=== PATIENT | female | born 1950 | race Caucasian/White ===

== ENCOUNTER 2016-12-04 09:00 | Outpatient (RCR) | payer MEDICARE ==
--- OUTSIDE RECORDS SUMMARY | 2016-10-20 13:06 | XMS REPORT | Continuity of Care Document ---
Author Author [facility] Organization [facility] Address Unknown Phone Unavailable Care Team Providers Care Net Development Manager Name Role Phone Emilie Ennis PCP Unavailable Source Comments Some departments are not documenting in the electronic medical record. If you do not see the information that you expected, contact Release of Information in the Health Information Management department at [phone] for further assistance in locating additional records.[facility] Active Allergies and Adverse Reactions No Known Allergies Current Medications Prescription Sig. Disp. Refills Start End Date Status Date ketotifen(+) (ZADITOR) Place 1 Drop into or Active 0.025 % ophthalmic around eye(s) twice solution daily. mupirocin (BACTROBAN) 2 % Apply to affected area Active topical ointment three times daily. clotrimazole-betamethason Apply to affected area Active e (LOTRISONE) 1-0.05 % twice daily. topical cream gentamicin 0.3 % Apply 1 Drop to both eyes Active ophthalmic solution every 4 hours. Tolnaftate 1 % soln Apply to affected area. Active Tobramycin-Lotepred Place into or around Active (ZYLET) 0.3-0.5 % drps eye(s). estradiol(+) 1 Patch twice weekly. 8 Patch 12 01/06/20 Active (VIVELLE-DOT) 0.05 mg/24 14 hr patch fluticasone (FLONASE) 50 2 Sprays daily. 1 Inhaler 11 01/05/20 Active mcg/actuation nasal spray 14 fexofenadine-pseudoephedr Take 1 Tab by mouth 30 Tab 3 10/19/20 Active ine (DIANNA-D 12 HOUR) daily. 14 60-120 mg tablet Active Problems Problem Noted Date Allergic rhinitis 12/20/2007 Sinusitis (chronic) 12/20/2007 Depression 12/20/2007 Immunizations Name Dates Previously Given Next Due Tdap Vaccine 10/04/2012 Social History Tobacco Use Types Packs/Day Years Used Date Current Some Day Smoker Cigarettes 0.3 Smokeless Tobacco: Never Used Tobacco Cessation: Ready to Quit: Yes; Counseling Given: Yes Comments: once she gets moved permanently to [place] Alcohol Use Drinks/Week oz/Week Comments Yes 3 Standard 1.5 wine drinks or equivalent Last Filed Vital Signs Vital Sign Reading Time Taken Blood Pressure 142/86 01/04/2014 7:51 AM HOME HEALTH RN Pulse 84 01/04/2014 7:51 AM HOME HEALTH RN Temperature 36.8 C (98.3 F) 01/04/2014 7:51 AM HOME HEALTH RN Respiratory Rate 16 12/05/2013 12:28 PM HOME HEALTH RN Height 1.607 m (5' 3.25") 01/04/2014 7:51 AM HOME HEALTH RN Weight 75.552 kg (166 lb 9 oz) 01/04/2014 7:51 AM HOME HEALTH RN Body Mass Index 29.26 01/04/2014 7:51 AM HOME HEALTH RN Oxygen Saturation - - Plan of Care Health Maintenance Due Date Last Done Comments Prevnar/Pneumovax (#1) 2013 Physical (Comprehensive) 01/04/2015 01/04/2014, 05/05/2011 Exam Breast Cancer Screening 01/05/2016 01/04/2014 (Declined) Influenza Vaccine 07/03/2016 01/04/2014 (Declined) Tetanus Vaccine 10/04/2022 10/04/2012, 10/04/2012 Colorectal Cancer 01/05/2024 01/04/2014 (Declined) Screening Pertussis Vaccine Completed 10/04/2012, 10/04/2012 Aco Mssp Completed 11/02/2013 Shingles Vaccine Addressed 01/04/2014 (Declined) Overridden with the intention of not completing the topic Osteoporosis Screening Completed 01/06/2014, 01/04/2014 Results from Last 3 Months Not on file
[~2016-12-04 09:00] MED LIST: CALC-823 PO; CETI10TA20 PO; CHOL20002 PO; CHOL500044 PO; ESTR0.5T PO; ESTR1PAT53 TD; FEXO-14 PO; FLUT9.9S NS; GINK120C PO; MULT-974 PO; OLOP2.5D OU; OMEP40CA36 PO
== END 2017-01-18 | disposition home or self-care (01) ==
LOC: PULM 09:00
PROVIDERS: ATTEND Nurse Practitioner Family
DX: J98.4 Other disorders of lung (principal); R09.02 Hypoxemia; R06.00 Dyspnea, unspecified
CPT/HCPCS: 94799; 99211

== ENCOUNTER 2017-05-22 12:46 | Outpatient (RCR) | payer OTHER ==
--- NOTE | 2017-05-22 12:46 | Diagnostic Imaging Report ---
PA and lateral views of the chest. INDICATION: History of histoplasmosis. FINDINGS: There is mild left basilar opacity which may relate to atelectasis or infiltrate. The heart size is not enlarged. There is interstitial thickening which appears to be chronic. No effusion or pneumothorax. The mediastinum and maksim appear unremarkable. IMPRESSION: Subsegmental opacity in the left lung base may relate to atelectasis or in the appropriate clinical setting, pneumonia could be considered. Dictated by: Dictated on workstation # [id number]
[2017-05-22 12:53] LABS: BASOPHILS % (AUTO) 0 % (0-10); EOSINOPHILS % (AUTO) 0 % (0-10); LYMPHOCYTES # (AUTO) 3.1 X 10^3 (1.0-4.0); LYMPHOCYTES % (AUTO) 35 % (12-44); MEAN CORPUSCULAR HEMOGLOBIN 32 PG (25-34); MEAN CORPUSCULAR HGB CONC 32 G/DL (32-36); MEAN CORPUSCULAR VOLUME 100 FL (80-99); MEAN PLATELET VOLUME 9.8 FL (7.4-10.4); MONOCYTES # (AUTO) 0.8 X 10^3 (0.0-1.0); MONOCYTES % (AUTO) 9 % (0-12); NEUTROPHILS # (AUTO) 4.9 X 10^3 (1.8-7.8); NEUTROPHILS % (AUTO) 56 % (42-75); PLATELET COUNT 331 10^3/uL (130-400); RED BLOOD COUNT 3.96 10^6/uL (4.35-5.85); RED CELL DISTRIBUTION WIDTH 13.5 % (10.0-14.5); WHITE BLOOD COUNT 8.8 10^3/uL (4.3-11.0)
[2017-05-22 13:47] LABS: BAND NEUTROPHILS 0 %; BASOPHILS % (MANUAL) 0 %; EOSINOPHILS % (MANUAL) 0 %; LYMPHOCYTES % (MANUAL) 34 %; NEUTROPHILS % (MANUAL) 61 %
== END 2017-08-01 | disposition home or self-care (01) ==
LOC: EDSTATUS 12:46 → RAD 12:46
PROVIDERS: ATTEND Nurse Practitioner Family
DX: J06.9 Acute upper respiratory infection, unspecified (principal); Z86.19 Personal history of other infectious and parasitic diseases
CPT/HCPCS: 36415; 71020; 85007; 85027; 87070; 87077; 87186; 87205

== ENCOUNTER → 2017-06-29 | Outpatient (CLI) | payer MEDICARE, OTHER ==
[2017-06-29 11:42] LABS: BASOPHILS % (AUTO) 1 % (0-10); EOSINOPHILS # (AUTO) 0.1 10^3/uL (0.0-0.3); EOSINOPHILS % (AUTO) 2 % (0-10); LYMPHOCYTES % (AUTO) 28 % (12-44); MEAN CORPUSCULAR HEMOGLOBIN 32 PG (25-34); MEAN CORPUSCULAR HGB CONC 32 G/DL (32-36); MEAN CORPUSCULAR VOLUME 99 FL (80-99); MEAN PLATELET VOLUME 10.1 FL (7.4-10.4); MONOCYTES # (AUTO) 0.6 X 10^3 (0.0-1.0); MONOCYTES % (AUTO) 9 % (0-12); NEUTROPHILS # (AUTO) 4.2 X 10^3 (1.8-7.8); NEUTROPHILS % (AUTO) 60 % (42-75); PLATELET COUNT 292 10^3/uL (130-400); RED BLOOD COUNT 4.05 10^6/uL (4.35-5.85); RED CELL DISTRIBUTION WIDTH 13.5 % (10.0-14.5)
[2017-06-29 12:00] LABS: ANION GAP 13 MMOL/L (5-14); BLOOD UREA NITROGEN 15 MG/DL (7-18); CARBON DIOXIDE 22 MMOL/L (21-32); CHLORIDE 105 MMOL/L (98-107); CREATININE SERUM 0.65 MG/DL (0.60-1.30); POTASSIUM 3.7 MMOL/L (3.6-5.0); SODIUM 140 MMOL/L (135-145)
[2017-06-29 12:01] LABS: ALANINE AMINOTRANSFERASE 11 U/L (0-55); ALBUMIN 3.8 GM/DL (3.2-4.5); ASPARTATE AMINO TRANSFERASE 16 U/L (5-34); BILIRUBIN,TOTAL 0.6 MG/DL (0.1-1.0); BUN/CREATININE RATIO 23; CALCIUM 9.1 MG/DL (8.5-10.1); GFR ESTIMATED > 60; GLUCOSE 110 MG/DL (70-105); TOTAL PROTEIN 7.2 GM/DL (6.4-8.2)
[2017-06-29 12:11] LABS: NEUTROPHILS % (MANUAL) 52 %
[2017-06-29 12:12] LABS: EOSINOPHILS % (MANUAL) 1 %; LYMPHOCYTES % (MANUAL) 33 %; REACTIVE LYMPHOCYTES 2 %
--- NOTE | 2017-06-29 13:23 | Diagnostic Imaging Report ---
PROCEDURE: CT chest without contrast. TECHNIQUE: Multiple contiguous axial images were obtained through the chest without the use of intravenous contrast. INDICATION: Pneumonia. Comparison is made with prior examination from 10/16/16. FINDINGS: There is air trapping compatible with COPD. There is subpleural interstitial scarring in the periphery of both lungs and particularly the lung bases. This is essentially unchanged. There is a calcified granuloma in the right lung base. There are no other discrete pulmonary nodules, masses or infiltrates. There is no pleural or pericardial fluid. There are coronary artery calcifications. The heart size is normal. There is no pathologically enlarged adenopathy in the chest. There are degenerative changes in the spine. There is cholelithiasis. The remainder of the intra-abdominal structures are unremarkable. IMPRESSION: 1. COPD with unchanged subpleural interstitial infiltrates/scarring bilaterally, particularly in the lung bases. This has not changed significantly since the prior examination. 2. Cholelithiasis. 3. Coronary artery calcification. Dictated by: Dictated on workstation # [id number]
== END ==
LOC: RAD 11:24
PROVIDERS: ATTEND Nurse Practitioner Family
DX: J44.9 Chronic obstructive pulmonary disease, unspecified (principal); K80.20 Calculus of gallbladder without cholecystitis without obstruction; I25.10 Atherosclerotic heart disease of native coronary artery without angina pectoris
CPT/HCPCS: 36415; 71250; 80053; 85007; 85027

== ENCOUNTER → 2018-01-18 | Outpatient (CLI) | payer MEDICARE, OTHER ==
--- NOTE | 2018-01-18 13:05 | Diagnostic Imaging Report ---
INDICATION: Dyspnea and tobacco dependence. TIME OF EXAM: 12:56 p.m. COMPARISON: Correlation is made with prior study from 05/22/2017. FINDINGS: The heart size is normal. Chronic parenchymal density in the left base partially obscuring the left heart border is noted and similar to prior exam. The right lung is clear. No effusion is seen. There is no pneumothorax. IMPRESSION: Chronic left basilar density, perhaps scarring or atelectasis. No new abnormality is detected. Dictated by: Dictated on workstation # [id number]
== END ==
LOC: RAD 12:08
PROVIDERS: ATTEND Nurse Practitioner Family
DX: J30.9 Allergic rhinitis, unspecified (principal); R91.8 Other nonspecific abnormal finding of lung field; R09.02 Hypoxemia; F17.201 Nicotine dependence, unspecified, in remission; Z86.19 Personal history of other infectious and parasitic diseases
CPT/HCPCS: 71046

== ENCOUNTER 2018-07-28 11:19 | Outpatient (RCR) | payer MEDICARE | END 2018-08-02 13:26 | disposition home or self-care (01) | PROVIDERS: ATTEND Orthopaedic Surgery Hand Surgery | DX: Z47.1 Aftercare following joint replacement surgery (principal); Z96.692 Finger-joint replacement of left hand ==

== ENCOUNTER 2018-08-10 11:19 | Outpatient (RCR) | payer MEDICARE | END 2018-09-16 13:54 | disposition home or self-care (01) | PROVIDERS: ATTEND Orthopaedic Surgery Hand Surgery | DX: Z47.1 Aftercare following joint replacement surgery (principal); Z96.692 Finger-joint replacement of left hand ==

== ENCOUNTER → 2019-03-01 | Outpatient (CLI) | payer MEDICARE ==
--- NOTE | 2019-03-01 16:35 | Diagnostic Imaging Report ---
INDICATION: Screening The current study was also evaluated with a Computer Aided Detection (CAD) system. 3-D Tomographic imaging was also performed. Comparison made with prior examination of 05/26/2016 and 05/09/2015. FINDINGS: There are fibroglandular densities bilaterally. There are a few benign type calcifications. There is a small well-circumscribed mass in the lateral aspect of the left breast in the CC projection. There is no other dominant mass, spiculated lesion or suspicious calcification identified. Skin, nipples and axilla are unremarkable. IMPRESSION: Category 0, further imaging needed. Well-circumscribed small mass lateral aspect left breast. Further evaluation with spot compression views and ultrasound is recommended. ACR BI-RADS Category 0: Incomplete. (Needs additional imaging evaluation). Result letter will be mailed to the patient. Note: At least 10% of breast cancer is not imaged by mammography. Dictated by: Dictated on workstation # [id number]
== END ==
LOC: RAD 12:49
PROVIDERS: ATTEND Nurse Practitioner Family
DX: Z12.31 Encounter for screening mammogram for malignant neoplasm of breast (principal)
CPT/HCPCS: 77067

== ENCOUNTER → 2019-03-14 | Outpatient (CLI) | payer MEDICARE ==
--- NOTE | 2019-03-14 14:44 | Diagnostic Imaging Report ---
INDICATION: Left breast density. Patient presents for additional views. CORRELATION is made with recent screening study from 03/01/2019. Unilateral left 2-D and 3-D diagnostic mammography was performed including spot compression CC, spot compression ML and conventional 9 degree lateral view. Additional views show persistence of circumscribed tiny nodule in the lower and outer aspect of the left breast at mid-to posterior depth. This is approximately 7 to 9 cm deep to the nipple. The remainder of the left breast is unremarkable. IMPRESSION: BI-RADS 0. Tiny circumscribed nodule lower outer left breast mid depth. This has benign features but further evaluation with ultrasound is recommended. This will be performed today. ACR BI-RADS Category 0: Incomplete. (Needs additional imaging evaluation). Result letter will be mailed to the patient. Note: At least 10% of breast cancer is not imaged by mammography. Dictated by: Dictated on workstation # [id number]
--- NOTE | 2019-03-14 15:05 | Diagnostic Imaging Report ---
INDICATION: Left breast density noted on recent screening and diagnostic mammogram. Study is performed for further aeration. CORRELATION is made with diagnosed mammogram earlier the same day as well as screening mammogram from 03/01/2019. FINDINGS: Sonographic interrogation of the outer left breast was performed. There is a bilobed simple appearing cyst at the 3 o'clock location of the left breast 7 cm from the nipple. This measures 5 mm x 2 mm x 5 mm. This does correlate in size and location to the circumscribed density noted mammographically. No internal vascularity is present. No solid lesion is identified. IMPRESSION: BI-RADS category 2. Simple bilobed cyst at the 3 o'clock location of the left breast, 7 cm from the nipple. This does correspond with the mammographic density and appears benign. The patient may return to routine annual screening mammography. ACR BI-RADS Category 2: Benign findings. Result letter will be mailed to the patient. Note: At least 10% of breast cancer is not imaged by mammography. Dictated by: Dictated on workstation # [id number]
== END ==
LOC: RAD 13:31
PROVIDERS: ATTEND Nurse Practitioner Family
DX: N60.02 Solitary cyst of left breast (principal); N63.23 Unspecified lump in the left breast, lower outer quadrant
CPT/HCPCS: 76642

== ENCOUNTER → 2019-08-31 | Outpatient (CLI) | payer MEDICARE ==
[2019-08-31 12:12] LABS: BASOPHILS % (AUTO) 1 % (0-10); EOSINOPHILS # (AUTO) 0.5 10^3/uL (0.0-0.3); EOSINOPHILS % (AUTO) 6 % (0-10); HEMATOCRIT 40 % (35-52); HEMOGLOBIN 12.7 G/DL (11.5-16.0); LYMPHOCYTES # (AUTO) 2.2 X 10^3 (1.0-4.0); LYMPHOCYTES % (AUTO) 27 % (12-44); MEAN CORPUSCULAR HEMOGLOBIN 32 PG (25-34); MEAN CORPUSCULAR HGB CONC 32 G/DL (32-36); MEAN CORPUSCULAR VOLUME 99 FL (80-99); MEAN PLATELET VOLUME 9.5 FL (7.4-10.4); MONOCYTES # (AUTO) 0.6 X 10^3 (0.0-1.0); MONOCYTES % (AUTO) 8 % (0-12); NEUTROPHILS # (AUTO) 4.7 X 10^3 (1.8-7.8); NEUTROPHILS % (AUTO) 59 % (42-75); PLATELET COUNT 357 10^3/uL (130-400); RED CELL DISTRIBUTION WIDTH 14.1 % (10.0-14.5)
--- NOTE | 2019-08-31 12:32 | Diagnostic Imaging Report ---
INDICATION: Pneumonia. PA and lateral views of the chest are obtained with comparison made to study of 01/18/2018. Heart size and pulmonary vascularity are within normal limits. There is mixed interstitial and alveolar density throughout the lungs, most pronounced in the left lower lobe. No pneumothorax or significant pleural fluid is identified. IMPRESSION: Development of bilateral interstitial and alveolar densities which may be due to pneumonitis or atypical pneumonia. Radiographic follow-up would be useful to document resolution. Dictated by: Dictated on workstation # [id number]
== END ==
LOC: RAD 12:01
PROVIDERS: ATTEND Nurse Practitioner Family
DX: J18.8 Other pneumonia, unspecified organism (principal); J30.9 Allergic rhinitis, unspecified; F17.201 Nicotine dependence, unspecified, in remission; Z86.19 Personal history of other infectious and parasitic diseases
CPT/HCPCS: 36415; 71046; 85025

== ENCOUNTER → 2019-09-21 | Outpatient (CLI) | payer MEDICARE ==
[~2019-09-21] MED LIST changes: +AZIT250T12 PO; +CALC-676 PO; +CEFD300C3 PO; +CYAN-41 PO; +CYCL1DRO OU; +DULO60CA59 PO; +ESTR1PAT90 TD; +HOLD METFORMIN - RECEIVED CONTRAST 20 ML VIAL IV SCH; +HYDR25TA4 PO; +IOHEXOL 350 MG/ML 100 ML (OMNIPAQUE 350) VIAL IV ONE; +LISI10TA2 PO; +MONT10TA24 PO; +NS 100 ML (IVPB) BAG IV ONE; +OLOP2.5D6 OU; +RT-ALBUINH INH; +TRAM50TA2 PO; +UMEC1BLS INH; +VITA1TAB17 PO
[2019-09-21 11:46] LABS: BASOPHILS % (AUTO) 1 % (0-10); EOSINOPHILS # (AUTO) 0.3 10^3/uL (0.0-0.3); EOSINOPHILS % (AUTO) 4 % (0-10); HEMATOCRIT 40 % (35-52); HEMOGLOBIN 12.7 G/DL (11.5-16.0); LYMPHOCYTES # (AUTO) 2.4 X 10^3 (1.0-4.0); LYMPHOCYTES % (AUTO) 29 % (12-44); MEAN CORPUSCULAR HEMOGLOBIN 32 PG (25-34); MEAN CORPUSCULAR HGB CONC 32 G/DL (32-36); MEAN CORPUSCULAR VOLUME 99 FL (80-99); MEAN PLATELET VOLUME 9.1 FL (7.4-10.4); MONOCYTES # (AUTO) 0.8 X 10^3 (0.0-1.0); MONOCYTES % (AUTO) 9 % (0-12); NEUTROPHILS # (AUTO) 4.9 X 10^3 (1.8-7.8); NEUTROPHILS % (AUTO) 58 % (42-75); PLATELET COUNT 326 10^3/uL (130-400); RED CELL DISTRIBUTION WIDTH 14.1 % (10.0-14.5); WHITE BLOOD COUNT 8.3 10^3/uL (4.3-11.0)
[2019-09-21 12:02] LABS: BUN/CREATININE RATIO 21; CREATININE SERUM 0.76 MG/DL (0.60-1.30); GFR ESTIMATED > 60
--- NOTE | 2019-09-21 14:01 | Diagnostic Imaging Report ---
PROCEDURE: CT angiography of the chest with contrast. TECHNIQUE: Multiple contiguous axial images were obtained through the chest after uneventful bolus administration of intravenous contrast. 3D reconstructed CTA MIP acquisitions were also performed. Auto Exposure Controls were utilized during the CT exam to meet ALARA standards for radiation dose reduction. INDICATION: Pneumonia, prior history of histoplasmosis. COMPARISON: Correlation is made with the prior chest CT from 06/29/2017. FINDINGS: The thoracic aorta is normal in caliber. No dissection is identified. Evaluation of the pulmonary arterial system is without thromboembolism. No filling defects are seen within central or lobar segmental branches. There is no pericardial or pleural fluid identified. No axillary lymphadenopathy is seen. There are some mildly prominent lymph nodes in the AP window and subcarinal region. Calcifications in the subcarinal region are noted, likely owing to prior granulomatous exposure. Extensive interstitial changes are identified in both lungs. There appears to be interlobular septal thickening peripherally in bilateral upper and lower lobes. There are some cystic changes in the left lower lobe. No discrete mass is identified. There appears to be some mild left lower lobe bronchiectasis. The upper abdomen demonstrates small stones in the gallbladder. IMPRESSION: 1. There are extensive interstitial changes in both lungs, perhaps on the basis of fibrosis although acute interstitial infiltrates cannot be entirely excluded. There appear to be some prominent lymph nodes in the mediastinum which may be of owing to prior granulomatous exposure. The patient does have a history of histoplasmosis. 2. Cholelithiasis. 3. No evidence of pulmonary embolism or thoracic aortic dissection. Dictated by: Dictated on workstation # [id number]
== END ==
LOC: RAD 11:37
PROVIDERS: ATTEND Nurse Practitioner Family
DX: J84.9 Interstitial pulmonary disease, unspecified (principal); J18.8 Other pneumonia, unspecified organism; G47.33 Obstructive sleep apnea (adult) (pediatric); F17.201 Nicotine dependence, unspecified, in remission; Z86.19 Personal history of other infectious and parasitic diseases
CPT/HCPCS: 36415; 71275; 82565; 83880; 84520; 85025

== ENCOUNTER 2019-09-22 10:07 | Inpatient (IN) | payer MEDICARE ==
[~2019-09-22] VITALS: Ht 162.5 cm; Wt 73.6 kg
[2019-09-22] VITALS (14 sets, daily range): BP systolic 98–154; BP diastolic 55–77
[~2019-09-22 10:07] MED LIST changes: -AZIT250T12 PO; -CALC-676 PO; -CEFD300C3 PO; -CYAN-41 PO; -CYCL1DRO OU; -DULO60CA59 PO; -ESTR1PAT90 TD; -HOLD METFORMIN - RECEIVED CONTRAST 20 ML VIAL IV SCH; -HYDR25TA4 PO; -IOHEXOL 350 MG/ML 100 ML (OMNIPAQUE 350) VIAL IV ONE; -LISI10TA2 PO; -MONT10TA24 PO; -NS 100 ML (IVPB) BAG IV ONE; -OLOP2.5D6 OU; +OMEP40CA27 PO; -OMEP40CA36 PO; -RT-ALBUINH INH; -TRAM50TA2 PO; -UMEC1BLS INH; -VITA1TAB17 PO
[2019-09-22] MEDS ORDERED: AZITHROMYCIN 500 MG/NS 250 ML IVPB IV ONE ×2 (11:00)
[2019-09-22] MEDS ORDERED: PIPERACILLIN/TAZOBACTAM 4.5 GM in NS (IVPB) 100 ML IV ONE (11:00)
--- NOTE | 2019-09-22 11:05 | NUR ---
Pastoral care visit.
[2019-09-22] MEDS ORDERED: ACETAMINOPHEN 325 MG TABLET PO PRN (11:15)
[2019-09-22] MEDS ORDERED: morphine INJ 4 MG/ML 1 ML (VIAL/SYRINGE) IV PRN (11:15)
[2019-09-22] MEDS ORDERED: ONDANSETRON 4 MG/2 ML (SDV) Z0FRAN IV PRN (11:15)
[2019-09-22 11:26] LABS: ALANINE AMINOTRANSFERASE 14 U/L (0-55); ALKALINE PHOSPHATASE 61 U/L (40-136); BILIRUBIN,TOTAL 0.5 MG/DL (0.1-1.0); BUN/CREATININE RATIO 15; CALCIUM 9.4 MG/DL (8.5-10.1); CARBON DIOXIDE 25 MMOL/L (21-32); CHLORIDE 105 MMOL/L (98-107); CREATININE SERUM 0.72 MG/DL (0.60-1.30); GFR ESTIMATED > 60; GLUCOSE 105 MG/DL (70-105); POTASSIUM 3.9 MMOL/L (3.6-5.0); SODIUM 139 MMOL/L (135-145); TOTAL PROTEIN 7.3 GM/DL (6.4-8.2)
[2019-09-22 11:27] LABS: BILIRUBIN,URINE NEGATIVE (NEGATIVE); CLARITY,URINE CLEAR; COLOR,URINE YELLOW; GLUCOSE, URINE (UA) NEGATIVE (NEGATIVE); KETONES,URINE NEGATIVE (NEGATIVE); LEUKOCYTE ESTERASE ,URINE NEGATIVE (NEGATIVE); NITRITE,URINE NEGATIVE (NEGATIVE); PROTEIN,URINE NEGATIVE (NEGATIVE)
[2019-09-22 11:33] LABS: BACTERIA,URINE TRACE /HPF; RBC,URINE 0-2 /HPF; WBC,URINE 0-2 /HPF
[2019-09-22] MEDS ORDERED: FLU QUADRIvalent (5+ YOA) 2019-2020 (AFLURIA) 0.5 ML IM ONE (12:00)
[2019-09-22] MEDS: LACTATED RINGERS 1,000 ML IV SCH ×3 (12:05→23:18)
[2019-09-22] MEDS ORDERED: HYDR25TA4 PO (12:56)
[2019-09-22] MEDS ORDERED: CYCL1DRO OU (12:56)
[2019-09-22] MEDS ORDERED: CEFD300C3 PO (12:56)
[2019-09-22] MEDS ORDERED: RT-ALBUINH INH (12:56)
[2019-09-22] MEDS ORDERED: OLOP2.5D6 OU (12:56)
[2019-09-22] MEDS ORDERED: TRM50T PO (12:56)
[2019-09-22] MEDS ORDERED: MONT10TA24 PO (12:56)
[2019-09-22] MEDS ORDERED: DULO60CA59 PO (12:56)
[2019-09-22] MEDS ORDERED: VITA1TAB17 PO (12:56)
[2019-09-22] MEDS ORDERED: CYAN-41 PO (12:56)
[2019-09-22] MEDS ORDERED: LISI10TA2 PO (12:56)
[2019-09-22] MEDS ORDERED: CALC-676 PO (12:56)
[2019-09-22] MEDS ORDERED: UMEC1BLS INH (12:56)
[2019-09-22] MEDS ORDERED: AZIT250T12 PO (12:56)
[2019-09-22] MEDS ORDERED: ESTR1PAT90 TD (12:56)
--- NOTE | 2019-09-22 13:01 | NUR ---
WENT OVER THE EXT MED HX WITH THE PATIENT, SHE HAD HER PRESCRIPTION BOTTLES WITH HER WELL. SHE VERIFIED HOW SHE TAKES EACH MEDICATION. SHE TAKES THE FOLLOWING OTC: CALCIUM +D DAILY B12 DAILY ZYRTEC DAILY FLONASE PRN GINGKO BILOBA DAILY MTV DAILY B COMPLEX DAILY
[2019-09-22] MEDS: PIPERACILLIN/TAZO 4.5 GM/NS 100 ML IV SCH ×2 (17:58)
--- NOTE | 2019-09-22 19:25 | History & Physical ---
History of Present Illness History of Present Illness Reason for visit/HPI PT IS A 68 Y/O FEMALE WHO IS KNOWN TO ME FROM CLINIC. SHE HAS APPARENTLY NOT BEEN FEELING WELL FOR ABOUT A MONTH - WAS SEEN BY DR. CELESTE'S NURSE PRACTITIONER AND GIVEN ANTIBIOTICS AT THE END OF AUGUST, SHE DID NOT FEEL WELL AFTER THE ANTIBIOTICS, WANTED THEM EXTENDED, BUT HAD TROUBLE GETTING IN TOUCH WITH HIS STAFF AND SHE NEVER CALLED MY OFFICE FOR AN APPT. SHE "SUFFERED THROUGH IT" AND THEN FINALLY GOT IN TO BE SEEN ON THURSDAY, THEY WANTED TO ADMIT HER AT THAT TIME, BUT SHE REFUSED BECAUSE SHE HAD A CONCERT TO PLAY AT ON THURSDAY. SHE THEN CALLED THEN ON THURSDAY AND SAID THAT SHE WAS FEELING WORSE AND SHE WAS THEREFORE ADMITTED TO THE HOSPITAL FROM HIS CLINIC TODAY. Date of Admission Sep 22, 2019 at 10:29 Date Seen by a Provider: Sep 22, 2019 Time Seen by a Provider: 19:20 I consulted on this patient on 09/22/19 19:24 Attending Physician Marbin Wang MD Admitting Physician Marbin Wang MD Consult Allergies and Home Medications Allergies Coded Allergies: No Known Allergies (Verified Allergy, Unknown, 06/19/15) Home Medications Albuterol Sulfate 1 Puff Puff, 2 PUFF INH Q4H PRN for SHORTNESS OF BREATH, (Reported) Azithromycin 250 Mg Tablet, 250 MG PO UD, (Reported) FILLED 09-21-19 TAKE 2 TABLETS ON DAY ONE THEN TAKE 1 TABLET DAILY FOR FOUR MORE DAYS Calcium Carbonate/Vitamin D3 1 Each Tablet, 1 TAB PO DAILY, (Reported) Cefdinir 300 Mg Capsule, 300 MG PO BID, (Reported) 7 DAY SUPPLY FILLED 09-21-19 Cetirizine HCl 10 Mg Tablet, 10 MG PO DAILY, (Reported) Cyanocobalamin (Vitamin B-12) 1,000 Mcg Tablet, 1,000 MCG PO DAILY, (Reported) Cyclosporine 1 Each Droperette, 1 DROP OU BID, (Reported) Duloxetine HCl 60 Mg Capsule.dr, 60 MG PO HS, (Reported) Estradiol 1 Each Patch.tdsw, 0.5 MG TD SuTh, (Reported) Fluticasone Propionate 9.9 Ml [place].susp, 1 SPRAY NS DAILY PRN for ALLERGIES, (Reported) Ginkgo Biloba Extract 120 Mg Capsule, 120 MG PO DAILY, (Reported) Hydrochlorothiazide 25 Mg Tablet, 25 MG PO DAILY, (Reported) Lisinopril 10 Mg Tablet, 10 MG PO DAILY, (Reported) Montelukast Sodium 10 Mg Tablet, 10 MG PO HS, (Reported) Multivitamin 1 Each Tablet, 1 TAB PO DAILY, (Reported) Olopatadine HCl 2.5 Ml Drops, 1 DROP OU DAILY, (Reported) Omeprazole 40 Mg Capsule.dr, 40 MG PO DAILY, (Reported) Tramadol HCl 50 Mg Tablet, 50-100 MG PO Q4H PRN for PAIN-MODERATE (5-7), (Reported) Umeclidinium Brm/Vilanterol Tr 1 Each Blst.w.dev, 1 PUFF INH DAILY, (Reported) Vitamin B Complex 1 Each Tablet, 1 TAB PO DAILY, (Reported) Patient Home Medication List Home Medication List Reviewed: Yes Past Irpothr-Fumelc-Wuomvx Hx Past Med/Social Hx: Reviewed Nursing Past Med/Soc Hx, Reviewed and Corrections made Patient Social History Marrital Status: Living Status: LIVES AT HOME WITH SPOUSE Employed/Student: retired Alcohol Use: Regular Use Alcohol Beverage of Choice: Wine Recreational Drug Use: No Smoking Status: Former Smoker Former Smoker, Quit: Nov 25, 2014 2nd Hand Smoke Exposure: No Physical Abuse Screen: No Sexual Abuse: No Recent Foreign Travel: No Contact w/other who traveled: No Recent Hopitalizations: No Recent Infectious Disease Expo: No Immunizations Up To Date Date of Pneumonia Vaccine: Oct 21, 2017 Seasonal Allergies Seasonal Allergies: Yes Past Medical History Surgeries: Appendectomy, Hysterectomy, Lumpectomy, Tonsillectomy, Tubal Ligation Hysterectomy, Tubal Ligation Musculoskeletal: Arthritis, Fibromyalgia Loss of Vision: Denies Hearing Impairment: Denies Did You Recieve Any Treatments: No Psychosocial: Depression History of Blood Disorders: No Family History Reviewed Nursing Family Hx Alzheimer's disease 19 MOTHER Cardiovascular disease 19 FATHER Dementia G8 SISTER Parkinson's disease 19 MOTHER Review of Systems Constitutional: No chills, No fever; malaise, weakness EENTM: No hoarseness, No throat pain Respiratory: cough, dyspnea on exertion, short of breath Cardiovascular: No chest pain, No palpitations Gastrointestinal: No abdominal pain, No melena, No nausea, No vomiting Genitourinary: no symptoms reported Musculoskeletal: No back pain; muscle weakness Skin: no symptoms reported Psychiatric/Neurological: Denies Anxiety, Denies Depressed, Denies Weakness All Other Systems Reviewed Negative Unless Noted: Yes Physical Exam Vital Signs Vital Signs - First Documented 09/22/19 09/22/19 10:15 10:50 Temp 35.9 Pulse 71 Resp 25 B/P (MAP) 154/69 (97) Pulse Ox 96 O2 Delivery Nasal Cannula O2 Flow Rate 3.00 Capillary Refill : Height, Weight, BMI Height: 5'4.00" Weight: 170lbs. 0.0oz. 77.364418bu; 28.17 BMI Method: General Appearance: No Apparent Distress, WD/WN Eyes: Bilateral Eye Normal Inspection, Bilateral Eye PERRL, Bilateral Eye EOMI HEENT: PERRL/EOMI, Pharynx Normal Neck: Full Range of Motion Respiratory: Chest Non Tender, Accessory Muscle Use, Decreased Breath Sounds Cardiovascular: Regular Rate, Rhythm, No Edema, Normal Peripheral Pulses Gastrointestinal: Normal Bowel Sounds, Non Tender, Soft Rectal: Deferred Back: Normal Inspection, No Vertebral Tenderness Extremity: Normal Capillary Refill, Non Tender, No Calf Tenderness, No Pedal Edema Neurologic/Psychiatric: Alert, Oriented x3, No Motor/Sensory Deficits, Normal 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 CELESTE - ANTICIPATE THE PATIENT BEING IN THE HOSPITAL FOR AT LEAST 72 HOURS. - BRONCHOSCOPY PLANNED FOR TOMORROW HYPERTENSION - HOLD LISINOPRIL DUE TO HER COUGH - MONITOR BLOOD PRESSURES AND I WOULD RECOMMEND STARTING AN ARB INSTEAD OF AIDA-I ESOPHAGEAL REFLUX - START PPI Admission Diagnosis PNEUMONIA COPD EXACERBATION - ACUTE HYPERTENSION ESOPHAGEAL REFLUX Admission Status: Inpatient Order (span 2 midnights) Reason for Inpatient Admission: PT IS ADMITTED TO THE HOSPITAL FOR PNEUMONIA AND COPD EXACERBATION Clinical Quality Measures DVT/VTE Risk/Contraindication: Risk Factor Score Per Nursin RFS Level Per Nursing on Admit: 3=High MARBIN WANG MD Sep 22, 2019 19:25 POS
[2019-09-22] MEDS ORDERED: PROMETHAZINE/ CODEINE SYRUP 5 ML UDC PO PRN (21:15)
[2019-09-22] MEDS ORDERED: CHLORASEPTIC LOZENGE MM PRN (21:15)
[2019-09-22] MEDS: ENOXAPARIN 40 MG/0.4 ML (LOVENOX) SYR SC SCH (22:22)
[2019-09-22] MEDS ORDERED: methylPREDNISolone 40 MG/ML (Solu-MEDROL) VIAL ONE (23:08)
[2019-09-22] MEDS ORDERED: DULoxetine 30 MG (CYMBALTA) CAP ONE (23:08)
[2019-09-22] MEDS: DULoxetine 30 MG (CYMBALTA) CAP PO SCH (23:14)
[2019-09-22] MEDS: methylPREDNISolone 40 MG/ML (Solu-MEDROL) VIAL IV SCH (23:14)
[2019-09-23] VITALS (15 sets, daily range): BP systolic 99–140; BP diastolic 44–83
[2019-09-23] MEDS ORDERED: methylPREDNISolone 125 MG (Solu-MEDROL) VIAL IV SCH
[2019-09-23] MEDS ORDERED: methylPREDNISolone 40 MG/ML (Solu-MEDROL) VIAL IV SCH
[2019-09-23] MEDS: PIPERACILLIN/TAZO 4.5 GM/NS 100 ML IV SCH ×6 (01:32→16:39)
[2019-09-23] MEDS: MAGNESIUM 1 GM/100 ML IVPB 100 ML IV SCH (01:58)
[2019-09-23] MEDS: POTASSIUM CL 10MEQ/50ML IVPB 50 ML IV SCH (01:58)
[2019-09-23] MEDS: KCL 20 MEQ TAB (K-DUR) PO SCH (01:59)
[2019-09-23] MEDS ORDERED: RT-ALBUTEROL SULF 2.5 MG/3 ML PRE-MIX VIAL INH SCH (03:00)
[2019-09-23 03:53] LABS: BASOPHILS % (AUTO) 0 % (0-10); EOSINOPHILS % (AUTO) 0 % (0-10); HEMATOCRIT 37 % (35-52); HEMOGLOBIN 12.2 G/DL (11.5-16.0); LYMPHOCYTES # (AUTO) 0.9 X 10^3 (1.0-4.0); LYMPHOCYTES % (AUTO) 10 % (12-44); MEAN CORPUSCULAR HEMOGLOBIN 32 PG (25-34); MEAN CORPUSCULAR HGB CONC 33 G/DL (32-36); MEAN CORPUSCULAR VOLUME 99 FL (80-99); MEAN PLATELET VOLUME 9.8 FL (7.4-10.4); MONOCYTES # (AUTO) 0.1 X 10^3 (0.0-1.0); MONOCYTES % (AUTO) 1 % (0-12); NEUTROPHILS # (AUTO) 7.8 X 10^3 (1.8-7.8); NEUTROPHILS % (AUTO) 89 % (42-75); PLATELET COUNT 307 10^3/uL (130-400); RED CELL DISTRIBUTION WIDTH 14.1 % (10.0-14.5); WHITE BLOOD COUNT 8.9 10^3/uL (4.3-11.0)
[2019-09-23 04:37] LABS: BUN/CREATININE RATIO 15; CARBON DIOXIDE 23 MMOL/L (21-32); CHLORIDE 108 MMOL/L (98-107); CREATININE SERUM 0.74 MG/DL (0.60-1.30); GFR ESTIMATED > 60; GLUCOSE 146 MG/DL (70-105); MAGNESIUM 1.9 MG/DL (1.6-2.4); PHOSPHORUS 3.8 MG/DL (2.3-4.7); POTASSIUM 4.1 MMOL/L (3.6-5.0); SODIUM 141 MMOL/L (135-145)
--- NOTE | 2019-09-23 05:16 | Pulmonary Consultation ---
History of Present Illness History of Present Illness Date Seen by Provider: Sep 23, 2019 Time Seen by Provider: 07:00 Date of Admission History of Present Illness 68yo with hx of oxygen dependent COPD who was admitted from my office secondary to failing out pt treatment. Pt was on Omnicef in August and since that time she has progressively gotten worse. She has productive cough of yellow sputum and fevers. I am consulted for pulmonary management. Allergies and Home Medications Allergies Coded Allergies: lisinopril (Verified Adverse Reaction, Mild, cough, 09/25/19) Home Medications Albuterol Sulfate 1 Puff Puff, 2 PUFF INH Q4H PRN for SHORTNESS OF BREATH, (Reported) Amoxicillin/Potassium Clav 1 Each Tablet, 1 EACH PO BID Prescribed by: MARBIN JIMÉNEZ on 09/27/19954 Calcium Carbonate/Vitamin D3 1 Each Tablet, 1 TAB PO DAILY, (Reported) Cetirizine HCl 10 Mg Tablet, 10 MG PO DAILY, (Reported) Cyanocobalamin (Vitamin B-12) 1,000 Mcg Tablet, 1,000 MCG PO DAILY, (Reported) Cyclosporine 1 Each Droperette, 1 DROP OU BID, (Reported) Duloxetine HCl 60 Mg Capsule.dr, 60 MG PO HS, (Reported) Estradiol 1 Each Patch.tdsw, 0.5 MG TD SuTh, (Reported) Fluconazole 150 Mg Tablet, 150 MG PO DAILY Prescribed by: MARBIN JIMÉNEZ on 09/27/19954 Fluticasone Propionate 9.9 Ml [place].susp, 1 SPRAY NS DAILY PRN for ALLERGIES, (Reported) Ginkgo Biloba Extract 120 Mg Capsule, 120 MG PO DAILY, (Reported) Hydrochlorothiazide 25 Mg Tablet, 25 MG PO DAILY, (Reported) Losartan Potassium 25 Mg Tablet, 25 MG PO DAILY Prescribed by: MARBIN JIMÉNEZ on 09/27/19954 Montelukast Sodium 10 Mg Tablet, 10 MG PO HS, (Reported) Multivitamin 1 Each Tablet, 1 TAB PO DAILY, (Reported) Olopatadine HCl 2.5 Ml Drops, 1 DROP OU DAILY, (Reported) Omeprazole 40 Mg Capsule.dr, 40 MG PO DAILY, (Reported) Prednisone 20 Mg Tab, 20 MG PO UD 2tab/dayx 4days, 1tab/day x4days, 1/2tab/day x 4days then stop Prescribed by: MARBIN JIMÉNEZ on 09/27/19 0955 Tramadol HCl 50 Mg Tablet, 50-100 MG PO Q4H PRN for PAIN-MODERATE (5-7), (Reported) Umeclidinium Brm/Vilanterol Tr 1 Each Blst.w.dev, 1 PUFF INH DAILY, (Reported) Vitamin B Complex 1 Each Tablet, 1 TAB PO DAILY, (Reported) Past Whmifwp-Otylxt-Tuhuvk Hx Patient Social History Alcohol Use: Regular Use Alcohol Beverage of Choice: Wine Recreational Drug Use: No Smoking Status: Former Smoker Former Smoker, Quit: Nov 25, 2014 Recent Foreign Travel: No Recent Hopitalizations: No Immunizations Up To Date Date of Pneumonia Vaccine: Oct 21, 2017 Seasonal Allergies Seasonal Allergies: Yes Past Medical History Surgeries: Yes (c/s x2) Appendectomy, Hysterectomy, Lumpectomy, Tonsillectomy, Tubal Ligation Respiratory: Yes (wears oxygen at night and prn, INTERSITIAL LUNG DISEASE, HISTOPLASMOSIS) Cardiac: No Neurological: No [employer] F[employer]ER [employer] MACHINE History: Hysterectomy, Tubal Ligation Genitourinary: No Gastrointestinal: No Musculoskeletal: Yes Arthritis, Fibromyalgia Endocrine: No HEENT: No Cancer: No Psychosocial: Yes Depression Integumentary: No Blood Disorders: No Family Medical History Alzheimer's disease 19 MOTHER Cardiovascular disease 19 FATHER Dementia G8 SISTER Parkinson's disease 19 MOTHER Review of Systems Time Seen by Provider: 08:44 Constitutional: Fever, Chills, Sweats, Weakness, Malaise; No: Other Eyes: No: Pain, Vision change, Conjunctivae inflammation, Eyelid inflammation, Other, Redness ENT: Nose congestion; No: Ear pain, Ear discharge, Nose pain, Nose discharge, Mouth pain, Mouth swelling, Throat pain, Throat swelling, Other Respiratory: Cough, Shortness of breath, SOB with excertion, Wheezing; No: Hemoptysis Cardiovascular: Paroxysmal Noc. Dyspnea; No: Chest Pain, Palpitations Gastrointestinal: No: Nausea, Vomiting, Abdominal Pain, Diarrhea, Constipation, Melena, Hematochezia, Other Genitourinary: No Dysuria, No Frequency, No Incontinence, No Hematuria, No Retention, No Other Sepsis Event Evaluation Height, Weight, BMI Height: 5'4.00" Weight: 170lbs. 0.0oz. 77.740681zo; 28.17 BMI Method: Exam Exam Vital Signs Date Time Temp Pulse Resp B/P (MAP) Pulse Ox O2 Delivery O2 Flow Rate FiO2 09/23/19 02:33 NIV CPAP 4.00 09/23/19 02:00 74 25 118/72 (87) 99 NIV CPAP 3.00 09/23/19 01:50 96 NIV CPAP 3.00 09/23/19 01:00 78 12 101/44 (63) 95 NIV CPAP 3.00 09/23/19 01:00 78 09/23/19 00:30 NIV CPAP 3.00 09/23/19 00:00 77 21 127/67 (87) 97 Nasal Cannula 3.00 09/23/19 00:00 Nasal Cannula 3.00 09/22/19 23:00 71 15 118/65 (82) 97 Nasal Cannula 3.00 09/22/19 22:12 95 Nasal Cannula 3.00 09/22/19 22:00 71 22 130/70 (90) 97 Nasal Cannula 3.00 09/22/19 21:00 81 24 140/70 (93) 94 Nasal Cannula 3.00 09/22/19 20:00 72 39 136/72 (93) 99 Nasal Cannula 3.00 09/22/19 20:00 Nasal Cannula 3.00 09/22/19 20:00 36.4 09/22/19 19:00 66 09/22/19 19:00 66 17 131/75 (93) 98 Nasal Cannula 3.00 09/22/19 18:00 73 13 138/67 (90) 97 Nasal Cannula 3.00 09/22/19 17:00 74 9 135/70 (91) 98 Nasal Cannula 3.00 09/22/19 16:00 36.8 09/22/19 16:00 Nasal Cannula 3.00 09/22/19 16:00 71 16 124/68 (86) 98 Nasal Cannula 3.00 09/22/19 15:00 70 38 125/70 (88) 99 Nasal Cannula 3.00 09/22/19 14:00 71 23 123/66 (85) 97 Nasal Cannula 3.00 09/22/19 13:00 85 37 98/55 (69) 92 Nasal Cannula 3.00 09/22/19 12:21 68 09/22/19 12:00 64 25 136/77 (96) 93 Nasal Cannula 3.00 09/22/19 12:00 Nasal Cannula 3.00 09/22/19 12:00 36.2 09/22/19 11:00 73 13 154/69 (97) Nasal Cannula 3.00 09/22/19 10:50 71 25 154/69 (97) Nasal Cannula 3.00 09/22/19 10:15 35.9 96 Nasal Cannula 3.00 09/22/19 10:15 96 Nasal Cannula 3.00 I & O 09/23/19 07:00 Intake Total 1580 ml Output Total 300 ml Balance 1280 ml Height & Weight Height: 5'4.00" Weight: 170lbs. 0.0oz. 77.211627sb; 28.17 BMI Method: General Appearance: Anxious, Moderate Distress HEENT: PERRL/EOMI, Normal ENT Inspection, Pharynx Normal Neck: Full Range of Motion, Non Tender, Supple Respiratory: Chest Non Tender, No Accessory Muscle Use, No Respiratory Distre ss, Crackles, Decreased Breath Sounds Cardiovascular: Regular Rate, Rhythm, No Edema, No Gallop Capillary Refill: Less Than 3 Seconds Gastrointestinal: normal bowel sounds, non tender, soft Extremity: Normal Capillary Refill, Normal Inspection, No Pedal Edema Neurologic/Psychiatric: Alert, Oriented x3, No Motor/Sensory Deficits Skin: Normal Color, Warm/Dry Lymphatic: No Adenopathy Results Lab Laboratory Tests 09/22/19 10:45 09/23/19 03:35 Assessment/Plan Assessment/Plan Pneumonia persistent failed out pt treatment -Continue Azithromycin and zosyn -Will do bronchoscopy this AM -Aguilar cultures pending -Respiratory viral panel COPDAE -Solumedrol -SVNS -Oxygen LIDIA CELESTE DO Sep 23, 2019 05:16
[2019-09-23] MEDS: methylPREDNISolone 40 MG/ML (Solu-MEDROL) VIAL IV SCH ×3 (05:54→18:52)
--- NOTE | 2019-09-23 07:04 | Diagnostic Imaging Report ---
INDICATION: Bilateral pneumonia. Portable chest 2:58 AM There is some interstitial infiltrate in both lungs worse on the left than on the right. These appear to have increased in density compared to prior exam dated 08/31/2019. IMPRESSION: Bilateral interstitial infiltrates worse on the left than on the right and slightly worse in appearance compared to 08/31/2019. Dictated by: Dictated on workstation # [id number]
[2019-09-23] MEDS ORDERED: MIDAZOLAM 2 MG/2 ML (VERSED) VIAL ONE ×2 (07:57→08:30)
[2019-09-23] MEDS ORDERED: RT-ALBUTEROL/IPRATROPIUM 3 ML (DUONEB) VIAL INH PRN (08:00)
[2019-09-23] MEDS ORDERED: fentaNYL INJECTION 100 MCG/2 ML AMP ONE ×2 (08:04→08:30)
--- NOTE | 2019-09-23 08:23 | NUR ---
DR CELESTE AND RT AT BEDSIDE TO DO BRON 2MG VERSED AND 50 MCG OF FENT GIVEN FOR PROCEDURE AND PT IS STILL CONVERSING WELL. AN ADDITIONAL 1 MG OF VERSED GIVEN AT THIS TIME. BP 127/67, HR 75, RR 16, SPO2 99% . TOTAL AMOUNT OF VERSED FOR PROCEDURE WAS 4 MG AND FENTAYL 100 MCG. PROCEDURE COMPLETE AT 0833
[2019-09-23] MEDS ORDERED: DULoxetine 30 MG (CYMBALTA) CAP PO SCH (09:00)
[2019-09-23] MEDS: AZITHROMYCIN 250 MG/NS 250 ML IVPB IV SCH ×2 (09:23)
[2019-09-23] MEDS: LACTATED RINGERS 1,000 ML IV SCH ×3 (09:26→23:23)
--- NOTE | 2019-09-23 09:36 | Diagnostic Imaging Report ---
INDICATION: Followup bronchoscopy. Portable chest 9:30 AM There are some interstitial infiltrate in the left lower lung and in the periphery of the right upper lung. There is no effusion or pneumothorax. IMPRESSION: Bilateral interstitial infiltrate worse on the left than on the right but unchanged from earlier in the day. Dictated by: Dictated on workstation # [id number]
--- NOTE | 2019-09-23 10:15 | Progress Note ---
Subjective Date Seen by a Provider: Sep 23, 2019 Time Seen by a Provider: 08:00 Subjective/Events-last exam PT REPORTS THAT SHE IS NERVOUS ABOUT HER BRONCHOSCOPY SHE STATES THAT SHE DOES FEEL A LITTLE BIT BETTER TODAY, BUT STILL HAS TROUBLE BREATHING. Review of Systems General: Fatigue, Malaise Pulmonary: Dyspnea, Cough Gastrointestinal: No: Nausea, Abdominal Pain Genitourinary: No Dysuria Neurological: Weakness; No: Confusion Objective Exam Last Set of Vital Signs Vital Signs Date Time Temp Pulse Resp B/P (MAP) Pulse Ox O2 Delivery O2 Flow Rate FiO2 09/23/19 09:00 90 14 117/66 (83) 93 Nasal Cannula 3.00 09/22/19 20:00 36.4 Capillary Refill : I&O Intake and Output 09/23/19 00:00 Intake Total 1380 ml Output Total 300 ml Balance 1080 ml Intake Oral 1010 ml IV Total 370 ml Output Urine Total 300 ml # Voids 6 Daily Weight Change No General: Alert, Oriented X3, Cooperative, No Acute Distress HEENT: Atraumatic, PERRLA Neck: Supple Lungs: Other (DECREASED IN BASES) Heart: Regular Rate Abdomen: Normal Bowel Sounds, Soft, No Tenderness Neuro: Cranial Nerves 3-12 NL Psych/Mental Status: Mental Status NL, Mood NL Results Lab Laboratory Tests 09/22/19 10:45: Sodium Level 139, Potassium Level 3.9, Chloride Level 105, Carbon Dioxide Level 25, Anion Gap 9, Blood Urea Nitrogen 11, Creatinine 0.72, Estimat Glomerular Filtration Rate > 60, BUN/Creatinine Ratio 15, Glucose Level 105, Calcium Level 9.4, Corrected Calcium 9.4, Total Bilirubin 0.5, Aspartate Amino Transf (AST/SGOT) 20, Alanine Aminotransferase (ALT/SGPT) 14, Alkaline Phosphatase 61, Total Protein 7.3, Albumin 4.0 09/22/19 11:20: Urine Color YELLOW, Urine Clarity CLEAR, Urine pH 6.0, Urine Specific [place] 1.015L, Urine Protein NEGATIVE, Urine Glucose (UA) NEGATIVE, Urine Ketones NEGATIVE, Urine Nitrite NEGATIVE, Urine Bilirubin NEGATIVE, Urine Urobilinogen 0.2, Urine Leukocyte Esterase NEGATIVE, Urine RBC (Auto) TRACE-I, Urine RBC 0-2, Urine WBC 0-2, Urine Squamous Epithelial Cells 5-10, Urine Crystals NONE, Urine Bacteria TRACE, Urine Casts NONE, Urine Mucus NEGATIVE, Urine Culture Indicated NO, Urine Legionella pneumophilia Ag Negative, Streptococcus pneumoniae Antigen Negative 09/23/19 03:35: Sodium Level 141, Potassium Level 4.1, Chloride Level 108H, Carbon Dioxide Level 23, Anion Gap 10, Blood Urea Nitrogen 11, Creatinine 0.74, Estimat Glomerular Filtration Rate > 60, BUN/Creatinine Ratio 15, Glucose Level 146H, Calcium Level 9.0, White Blood Count 8.9, Red Blood Count 3.76L, Hemoglobin 12.2, Hematocrit 37, Mean Corpuscular Volume 99, Mean Corpuscular Hemoglobin 32, Mean Corpuscular Hemoglobin Concent 33, Red Cell Distribution Width 14.1, Platelet Count 307, Mean Platelet Volume 9.8, Neutrophils (%) (Auto) 89H, Lymphocytes (%) (Auto) 10L , Monocytes (%) (Auto) 1, Eosinophils (%) (Auto) 0, Basophils (%) (Auto) 0, Neutrophils # (Auto) 7.8, Lymphocytes # (Auto) 0.9L, Monocytes # (Auto) 0.1, Eosinophils # (Auto) 0.0, Basophils # (Auto) 0.0, Phosphorus Level 3.8, Magnesium Level 1.9, B-Type Natriuretic Peptide 104.8H Microbiology 09/22/19 Influenza Types A,B Antigen (DAYNA) - Final, Complete Assessment/Plan Assessment/Plan Assess & Plan/Chief Complaint PNEUMONIA COPD EXACERBATION - ACUTE HYPERTENSION ESOPHAGEAL REFLUX PNEUMONIA WITH COPD EXACERBATION - ACUTE - PT HOSPITALIZED, STARTED ON IV ANTIBIOTICS, WILL DEFER TO DR. CELESTE - ANTICIPATE THE PATIENT BEING IN THE HOSPITAL FOR AT LEAST 72 HOURS. - BRONCHOSCOPY PLANNED FOR TODAY HYPERTENSION - HOLD LISINOPRIL DUE TO HER COUGH - MONITOR BLOOD PRESSURES AND I WOULD RECOMMEND STARTING AN ARB INSTEAD OF AIDA-I ESOPHAGEAL REFLUX - START PPI Clinical Quality Measures Admission Status Admission Dx PNEUMONIA COPD EXACERBATION - ACUTE HYPERTENSION ESOPHAGEAL REFLUX DVT/VTE Risk/Contraindication: Risk Factor Score Per Nursin RFS Level Per Nursing on Admit: 3=High MARBIN JIMÉNEZ MD Sep 23, 2019 10:15 POS
[2019-09-23] MEDS ORDERED: LIDOCAINE PF 1% 2 ML VIAL IJ ONE (11:14)
[2019-09-23] MEDS ORDERED: LIDOCAINE JELLY 2% 6 ML SYRINGE TOP ONE (11:14)
[2019-09-23] MEDS ORDERED: LIDOCAINE PF 2% 5 ML (XYLOCAINE) VIAL INJ ONE (11:14)
[2019-09-23] MEDS ORDERED: FLUTICASONE NASAL SPRAY (FLONASE) 16 GM BTL NS PRN (11:19)
[2019-09-23] MEDS: RT-ALBUTEROL/IPRATROPIUM 3 ML (DUONEB) VIAL INH SCH ×3 (11:47→19:15)
--- NOTE | 2019-09-23 14:25 | NUR ---
bedside report received from Princess VILLALTA. Patient laying in bed at this time, call light within reach, family at bedside. Will assume care at this time.
--- NOTE | 2019-09-23 14:25 | NUR ---
PT TO ROOM 404 ASSISTED TO BED. INTRODUCED TO ROOM AND CALL LIGHT. BEDSIDE REPORT GIVEN TO LADY VILLALTA.
[2019-09-23 15:25] LABS: PARAINFLU 1 PCR Not Detected (Not Detected); PARAINFLU 2 PCR Not Detected (Not Detected); RSV PCR TEST Not Detected (Not Detected)
--- NOTE | 2019-09-23 19:24 | NUR ---
Patient states that after the Bronch she felt better but she is having tightness in her chest when breathing
[2019-09-23] MEDS: DULoxetine 30 MG (CYMBALTA) CAP PO SCH ×2 (22:05)
[2019-09-23] MEDS: MONTELUKAST 10 MG (SINGULAIR) TAB PO SCH (22:05)
[2019-09-23] MEDS: ENOXAPARIN 40 MG/0.4 ML (LOVENOX) SYR SC SCH (22:06)
[2019-09-24] VITALS: BP 131/64
[2019-09-24] MEDS: methylPREDNISolone 40 MG/ML (Solu-MEDROL) VIAL IV SCH ×5 (00:32→23:49)
[2019-09-24] MEDS: PIPERACILLIN/TAZO 4.5 GM/NS 100 ML IV SCH ×6 (01:54→17:52)
[2019-09-24 04:00] VITALS: BP 138/65
[2019-09-24 05:00] LABS: BUN/CREATININE RATIO 19; CALCIUM 8.8 MG/DL (8.5-10.1); CARBON DIOXIDE 22 MMOL/L (21-32); CHLORIDE 109 MMOL/L (98-107); CREATININE SERUM 0.69 MG/DL (0.60-1.30); GFR ESTIMATED > 60; GLUCOSE 137 MG/DL (70-105); POTASSIUM 3.8 MMOL/L (3.6-5.0); SODIUM 144 MMOL/L (135-145)
[2019-09-24] MEDS: POTASSIUM CL 10MEQ/50ML IVPB 50 ML IV SCH (06:06)
[2019-09-24] MEDS: MAGNESIUM 1 GM/100 ML IVPB 100 ML IV SCH (06:07)
[2019-09-24] MEDS: KCL 20 MEQ TAB (K-DUR) PO SCH (06:07)
--- NOTE | 2019-09-24 06:13 | Pulmonary Progress Note ---
Subjective Time Seen by a Provider: 08:16 Subjective/Events-last exam No complications noted. Sepsis Event Evaluation Height, Weight, BMI Height: 5'4.00" Weight: 170lbs. 0.0oz. 77.408989ce; 28.17 BMI Method: Exam Exam Vital Signs Date Time Temp Pulse Resp B/P (MAP) Pulse Ox O2 Delivery O2 Flow Rate FiO2 09/24/19 04:00 36.4 70 20 138/65 (89) 97 NIV CPAP 09/24/19 00:00 36.7 82 16 131/64 (86) 99 NIV CPAP 5.00 09/23/19 20:49 36.8 102 22 126/70 (88) 97 Nasal Cannula 3.00 09/23/19 19:39 Nasal Cannula 3.00 09/23/19 19:15 95 Nasal Cannula 3.00 09/23/19 19:00 79 09/23/19 16:20 36.7 92 18 129/60 (83) 97 Nasal Cannula 3.00 09/23/19 15:18 98 Nasal Cannula 3.00 09/23/19 12:44 79 09/23/19 12:00 90 21 140/72 (94) 96 Nasal Cannula 5.00 09/23/19 12:00 Nasal Cannula 4.00 09/23/19 11:47 98 Nasal Cannula 5.00 09/23/19 11:00 68 16 131/83 (99) 99 Nasal Cannula 5.00 09/23/19 10:00 86 19 128/61 (83) 98 Nasal Cannula 5.00 09/23/19 09:00 90 14 117/66 (83) 93 Nasal Cannula 5.00 09/23/19 08:00 72 15 124/69 (87) 97 Nasal Cannula 5.00 09/23/19 08:00 Nasal Cannula 3.00 09/23/19 07:18 96 Nasal Cannula 4.00 09/23/19 07:18 10 09/23/19 07:00 82 09/23/19 07:00 74 9 99/51 (67) 92 NIV CPAP 4.00 I & O 09/24/19 07:00 Intake Total 3470 ml Output Total 1650 ml Balance 1820 ml Height & Weight Height: 5'4.00" Weight: 170lbs. 0.0oz. 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
[2019-09-24] MEDS ORDERED: FUROSEMIDE 40 MG/4 ML INJ (LASIX) IVP ONE (06:15)
[2019-09-24] MEDS ORDERED: KCL 20 MEQ TAB (K-DUR) PO ONE (06:15)
--- NOTE | 2019-09-24 07:58 | Diagnostic Imaging Report ---
INDICATION: Shortness of breath. Bilateral pneumonia. Comparison is made to the prior study from 09/23/2019. FINDINGS: Diffuse interstitial and alveolar opacities within the left and right lungs have progressed when compared to the prior exam. Distribution is most compatible with provided clinical history of bilateral pneumonia. There is no large effusion evident. Heart size stable. There is no pneumothorax. IMPRESSION: Interval progression in bilateral interstitial and alveolar opacities throughout both lungs suggesting progressive multilobar pneumonia. Dictated by: Dictated on workstation # [id number]
[2019-09-24 08:00] VITALS: BP 132/65
[2019-09-24] MEDS: RT-ALBUTEROL/IPRATROPIUM 3 ML (DUONEB) VIAL INH SCH ×4 (08:08→18:44)
[2019-09-24] MEDS: HYDROCHLOROTHIAZIDE 25 MG (HCTZ) TAB PO SCH (08:44)
[2019-09-24] MEDS: AZITHROMYCIN 250 MG/NS 250 ML IVPB IV SCH ×2 (08:44)
[2019-09-24] MEDS: LOSARTAN 25 MG (COZAAR) TAB PO SCH (08:44)
[2019-09-24] MEDS: NAPHA/PHEN (NAPHCON-A, OPCON-A) OP SOLN 15 ML BTL OU SCH ×2 (08:44→09:00)
[2019-09-24] MEDS: LORATADINE (CLARITIN) 10 MG TAB PO SCH (08:44)
[2019-09-24] MEDS ORDERED: NON-FORMULARY MEDICATION 1 EA EA (Umeclidinium Brm/Vilanterol Tr (Anoro Ellipta 62.5-25 Mc INH SCH (09:00)
--- NOTE | 2019-09-24 10:40 | Progress Note - Hospitalist ---
Subjective HPI/CC On Admission Date Seen by Provider: Sep 24, 2019 Time Seen by Provider: 10:00 Subjective/Events-last exam Pt reports feeling better and breathing better. Underwent bronchoscopy yesterday and now using IS. Feels less SOB but still has some congestion. No other complaints or concerns. Objective Exam Vital Signs Vital Signs Date Time Temp Pulse Resp B/P (MAP) Pulse Ox O2 Delivery O2 Flow Rate FiO2 09/24/19 08:08 94 Nasal Cannula 4.00 09/24/19 08:00 36.6 90 20 132/65 (87) Capillary Refill : General Appearance: No Apparent Distress, WD/WN Respiratory: No Accessory Muscle Use, No Respiratory Distress, Rhonci Cardiovascular: Regular Rate, Rhythm, No Murmur Gastrointestinal: Normal Bowel Sounds, Non Tender, Soft Neurologic/Psychiatric: Alert, Oriented x3, Normal Mood/Affect Results/Procedures Lab Laboratory Tests 09/24/19 03:48 Patient resulted labs reviewed. Assessment/Plan Assessment and Plan Assess & Plan/Chief Complaint PNEUMONIA WITH COPD EXACERBATION - ACUTE - s/p bronchoscopy - Still on 4lpm and patient reports desats with any exertion including showering - Continue abx - IV lasix given this AM - Will add mucinex HYPERTENSION - Lisinopril on hold due to potentially causation of cough - BP well controlled, continue losartan and HCTZ ESOPHAGEAL REFLUX - Started on Pantroprazole Clinical Quality Measures DVT/VTE Risk/Contraindication: Risk Factor Score Per Nursin RFS Level Per Nursing on Admit: 3=High SANDRINE STUBBS MD Sep 24, 2019 10:40 POS
[2019-09-24] MEDS ORDERED: PANTOPRAZOLE 20 MG TABLET (PROTONIX) PO ONE (10:45)
[2019-09-24] MEDS ORDERED: guaiFENesin (MUCINEX) 600 MG TAB PO PRN (10:45)
[2019-09-24 12:00] VITALS: BP 125/70
--- NOTE | 2019-09-24 16:00 | NUR ---
1548 lab called to report culture from [facility] wash [employer] smear, few acid fast bacilli, wasn't sure if needed isolation. [address] Conrad and report results, dr stated did not need isolation.
[2019-09-24 16:30] VITALS: BP 126/65
[2019-09-24] MEDS: DULoxetine 30 MG (CYMBALTA) CAP PO SCH ×2 (20:05→20:07)
[2019-09-24] MEDS: MONTELUKAST 10 MG (SINGULAIR) TAB PO SCH (20:05)
[2019-09-24] MEDS: ENOXAPARIN 40 MG/0.4 ML (LOVENOX) SYR SC SCH (20:05)
[2019-09-25] VITALS: BP 137/73
[2019-09-25] MEDS: PIPERACILLIN/TAZO 4.5 GM/NS 100 ML IV SCH ×6 (01:23→17:30)
[2019-09-25 05:47] LABS: BUN/CREATININE RATIO 22; CARBON DIOXIDE 25 MMOL/L (21-32); CHLORIDE 107 MMOL/L (98-107); CREATININE SERUM 0.79 MG/DL (0.60-1.30); GFR ESTIMATED > 60; GLUCOSE 141 MG/DL (70-105); POTASSIUM 4.1 MMOL/L (3.6-5.0); SODIUM 143 MMOL/L (135-145)
[2019-09-25] MEDS: KCL 20 MEQ TAB (K-DUR) PO SCH (05:57)
[2019-09-25] MEDS: MAGNESIUM 1 GM/100 ML IVPB 100 ML IV SCH (05:57)
[2019-09-25] MEDS: POTASSIUM CL 10MEQ/50ML IVPB 50 ML IV SCH (05:57)
[2019-09-25] MEDS: methylPREDNISolone 40 MG/ML (Solu-MEDROL) VIAL IV SCH ×3 (06:15→17:30)
--- NOTE | 2019-09-25 06:32 | Pulmonary Progress Note ---
Subjective Time Seen by a Provider: 08:15 Subjective/Events-last exam PT feels improved. No complications noted. Sepsis Event Evaluation Height, Weight, BMI Height: 5'4.00" Weight: 170lbs. 0.0oz. 77.845760aj; 28.17 BMI Method: Exam Exam Vital Signs Date Time Temp Pulse Resp B/P (MAP) Pulse Ox O2 Delivery O2 Flow Rate FiO2 09/25/19 00:00 36.0 75 20 137/73 (94) 75 Nasal Cannula 3.00 09/24/19 21:00 Nasal Cannula 3.00 09/24/19 18:44 97 Nasal Cannula 3.00 09/24/19 16:30 36.8 90 20 126/65 (85) 98 Nasal Cannula 3.00 09/24/19 14:30 95 Nasal Cannula 3.00 09/24/19 12:00 36.6 90 22 125/70 (88) 100 Nasal Cannula 5.00 09/24/19 10:52 97 Nasal Cannula 3.00 09/24/19 08:08 94 Nasal Cannula 3.00 09/24/19 08:00 36.6 90 20 132/65 (87) 93 Nasal Cannula 5.00 I & O 09/25/19 07:00 Intake Total 1980 ml Output Total 3500 ml Balance -1520 ml Height & Weight Height: 5'4.00" Weight: 170lbs. 0.0oz. 77.255068da; 28.17 BMI Method: General Appearance: No Apparent Distress, WD/WN HEENT: PERRL/EOMI, Pharynx Normal Neck: Full Range of Motion Respiratory: No Accessory Muscle Use, No Respiratory Distress, Rhonci Cardiovascular: Regular Rate, Rhythm, No Murmur Extremity: Normal Capillary Refill, Non Tender, No Calf Tenderness, No Pedal Edema Neurologic/Psychiatric: Alert, Oriented x3, Normal Mood/Affect Skin: Normal Color, Warm/Dry Lymphatic: No Adenopathy Results Lab Laboratory Tests 09/24/19 03:48 09/25/19 04:22 Assessment/Plan Assessment/Plan Pneumonia persistent failed out pt treatment -Continue Azithromycin and zosyn -Probably MAC - Doubt TB -s/p bronchoscopy -Aguilar cultures pending -Respiratory viral panel -Repeat lasix 40 IV x 1 COPDAE -Solumedrol -SVNS -Oxygen LIDIA CELESTE DO Sep 25, 2019 06:32 POS
[2019-09-25 06:54] LABS: BASOPHILS % (AUTO) 0 % (0-10); EOSINOPHILS % (AUTO) 0 % (0-10); HEMATOCRIT 36 % (35-52); HEMOGLOBIN 11.5 G/DL (11.5-16.0); LYMPHOCYTES # (AUTO) 1.1 X 10^3 (1.0-4.0); LYMPHOCYTES % (AUTO) 8 % (12-44); MEAN CORPUSCULAR HEMOGLOBIN 32 PG (25-34); MEAN CORPUSCULAR HGB CONC 32 G/DL (32-36); MEAN CORPUSCULAR VOLUME 100 FL (80-99); MEAN PLATELET VOLUME 9.9 FL (7.4-10.4); MONOCYTES # (AUTO) 0.4 X 10^3 (0.0-1.0); MONOCYTES % (AUTO) 3 % (0-12); NEUTROPHILS # (AUTO) 11.4 X 10^3 (1.8-7.8); NEUTROPHILS % (AUTO) 88 % (42-75); PLATELET COUNT 297 10^3/uL (130-400); RED CELL DISTRIBUTION WIDTH 14.4 % (10.0-14.5); WHITE BLOOD COUNT 12.9 10^3/uL (4.3-11.0)
[2019-09-25] MEDS ORDERED: FUROSEMIDE 40 MG/4 ML INJ (LASIX) IVP ONE (07:00)
[2019-09-25] MEDS ORDERED: KCL 20 MEQ TAB (K-DUR) PO ONE (07:00)
[2019-09-25 08:00] VITALS: BP 148/72
[2019-09-25 08:03] LABS: LYMPHOCYTES % (MANUAL) 11 %; MONOCYTES % (MANUAL) 3 %; NEUTROPHILS % (MANUAL) 86 %
[2019-09-25] MEDS: PANTOPRAZOLE 20 MG TABLET (PROTONIX) PO SCH (08:17)
[2019-09-25] MEDS: LORATADINE (CLARITIN) 10 MG TAB PO SCH (08:17)
[2019-09-25] MEDS: LOSARTAN 25 MG (COZAAR) TAB PO SCH (08:17)
[2019-09-25] MEDS: AZITHROMYCIN 250 MG/NS 250 ML IVPB IV SCH ×2 (08:18)
[2019-09-25] MEDS ORDERED: ESTRADIOL PATCH REMOVAL TP SCH (08:59)
[2019-09-25] MEDS: NAPHA/PHEN (NAPHCON-A, OPCON-A) OP SOLN 15 ML BTL OU SCH (09:00)
[2019-09-25] MEDS ORDERED: ESTRADIOL 0.1 MG PATCH (CLIMARA) TD SCH (09:00)
--- NOTE | 2019-09-25 09:49 | Diagnostic Imaging Report ---
INDICATION: Shortness of breath COMPARISON: 09/24/2019 FINDINGS: Single view of the chest demonstrates unchanged infiltrates in the left hemithorax. There are persistent but slightly decreased infiltrates on the right. The heart is prominent. There is no pneumothorax or large effusion. Osseous structures are stable. IMPRESSION: 1. Slightly improved aeration right hemithorax 2. Unchanged infiltrate left hemithorax. Dictated by: Dictated on workstation # [id number]
[2019-09-25] MEDS: RT-ALBUTEROL/IPRATROPIUM 3 ML (DUONEB) VIAL INH SCH ×3 (09:54→14:46)
[2019-09-25] MEDS: HYDROCHLOROTHIAZIDE 25 MG (HCTZ) TAB PO SCH (10:26)
--- NOTE | 2019-09-25 11:18 | Progress Note - Hospitalist ---
Subjective HPI/CC On Admission Date Seen by Provider: Sep 25, 2019 Time Seen by Provider: 11:14 Subjective/Events-last exam Pt reports breathing better. Having more sputum today but breathing deeper. Overall feeling better and able to ambulate further. Objective Exam Vital Signs Vital Signs Date Time Temp Pulse Resp B/P (MAP) Pulse Ox O2 Delivery O2 Flow Rate FiO2 09/25/19 10:44 97 Nasal Cannula 3.00 09/25/19 08:00 36.2 76 20 148/72 (97) Capillary Refill : General Appearance: No Apparent Distress, WD/WN Respiratory: No Accessory Muscle Use, No Respiratory Distress, Crackles Cardiovascular: Regular Rate, Rhythm, No Murmur Gastrointestinal: Normal Bowel Sounds, Non Tender, Soft Neurologic/Psychiatric: Alert, Oriented x3, Normal Mood/Affect Results/Procedures Lab Laboratory Tests 09/25/19 04:22 09/25/19 06:42 Patient resulted labs reviewed. Assessment/Plan Assessment and Plan Assess & Plan/Chief Complaint PNEUMONIA WITH COPD EXACERBATION - ACUTE - s/p bronchoscopy - Down to 3lpm and patient reports desats with any exertion including showering or ambulating to bathroom - Continue abx - Cont mucinex - lasix again this AM HYPERTENSION - BP well controlled, continue losartan and HCTZ ESOPHAGEAL REFLUX - Cont Pantroprazole Clinical Quality Measures DVT/VTE Risk/Contraindication: Risk Factor Score Per Nursin RFS Level Per Nursing on Admit: 3=High SANDRINE STUBBS MD Sep 25, 2019 11:18 POS
[2019-09-25 15:15] VITALS: BP 137/74
[2019-09-25] MEDS: ENOXAPARIN 40 MG/0.4 ML (LOVENOX) SYR SC SCH (20:12)
[2019-09-25] MEDS: MONTELUKAST 10 MG (SINGULAIR) TAB PO SCH (20:12)
[2019-09-25] MEDS: DULoxetine 30 MG (CYMBALTA) CAP PO SCH ×2 (20:12→21:00)
[2019-09-26] VITALS: BP 158/87
[2019-09-26] MEDS: methylPREDNISolone 40 MG/ML (Solu-MEDROL) VIAL IV SCH ×3 (00:10→11:36)
[2019-09-26] MEDS: PIPERACILLIN/TAZO 4.5 GM/NS 100 ML IV SCH ×6 (01:30→20:28)
[2019-09-26 05:47] LABS: BUN/CREATININE RATIO 25; CALCIUM 8.4 MG/DL (8.5-10.1); CARBON DIOXIDE 27 MMOL/L (21-32); CHLORIDE 105 MMOL/L (98-107); CREATININE SERUM 0.71 MG/DL (0.60-1.30); GFR ESTIMATED > 60; GLUCOSE 125 MG/DL (70-105); POTASSIUM 3.9 MMOL/L (3.6-5.0); SODIUM 141 MMOL/L (135-145)
[2019-09-26] MEDS: MAGNESIUM 1 GM/100 ML IVPB 100 ML IV SCH (06:00)
[2019-09-26] MEDS: KCL 20 MEQ TAB (K-DUR) PO SCH (06:00)
[2019-09-26] MEDS: POTASSIUM CL 10MEQ/50ML IVPB 50 ML IV SCH (06:00)
[2019-09-26] MEDS: RT-ALBUTEROL/IPRATROPIUM 3 ML (DUONEB) VIAL INH SCH ×5 (07:37→19:39)
--- NOTE | 2019-09-26 07:51 | Diagnostic Imaging Report ---
CHEST 1 VIEW, AP/PA ONLY Indication: Dyspnea Comparison: 09/25/2019 Findings: Left greater than right heterogeneous basilar consolidations are unchanged. No pleural effusion or pneumothorax. Stable cardiomediastinal silhouette. Impression: 1. No change in multifocal consolidations that should relate to pneumonia per provided history. Dictated by: Dictated on workstation # [id number]
[2019-09-26 08:00] VITALS: BP 151/73
[2019-09-26] MEDS: LORATADINE (CLARITIN) 10 MG TAB PO SCH (08:15)
[2019-09-26] MEDS: PANTOPRAZOLE 20 MG TABLET (PROTONIX) PO SCH (08:15)
[2019-09-26] MEDS: HYDROCHLOROTHIAZIDE 25 MG (HCTZ) TAB PO SCH (08:15)
[2019-09-26] MEDS: NAPHA/PHEN (NAPHCON-A, OPCON-A) OP SOLN 15 ML BTL OU SCH (08:15)
[2019-09-26] MEDS: LOSARTAN 25 MG (COZAAR) TAB PO SCH (08:15)
--- NOTE | 2019-09-26 08:17 | Pulmonary Progress Note ---
Subjective Time Seen by a Provider: 08:17 Subjective/Events-last exam Pt feels slightly improved. Sepsis Event Evaluation Height, Weight, BMI Height: 5'4.00" Weight: 170lbs. 0.0oz. 77.460653ag; 28.17 BMI Method: Exam Exam Vital Signs Date Time Temp Pulse Resp B/P (MAP) Pulse Ox O2 Delivery O2 Flow Rate FiO2 09/26/19 07:41 94 Nasal Cannula 3.00 09/26/19 00:00 36.6 73 16 158/87 (110) 98 Nasal Cannula 3.00 09/25/19 21:00 Nasal Cannula 3.00 09/25/19 15:15 36.0 81 20 137/74 (95) 98 Nasal Cannula 3.00 09/25/19 14:47 96 Nasal Cannula 3.00 09/25/19 10:44 97 Nasal Cannula 3.00 09/25/19 09:00 Nasal Cannula 3.00 I & O 09/26/19 07:00 Intake Total 1850 ml Output Total 3750 ml Balance -1900 ml Height & Weight Height: 5'4.00" Weight: 170lbs. 0.0oz. 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
--- NOTE | 2019-09-26 08:25 | Progress Note ---
Subjective Date Seen by a Provider: Sep 26, 2019 Time Seen by a Provider: 08:30 Subjective/Events-last exam PT REPORTS THAT SHE IS FEELING BETTER, SHE STILL HAS A COUGH, STILL HAS SHORTNESS OF BREATH, BUT FEELS LIKE HER SYMPTOMS ARE SIGNIFICANTLY IMPROVED. Review of Systems General: Fatigue; No Malaise HEENT: No Sinus Congestion, No Sore Throat Pulmonary: Dyspnea, Cough Cardiovascular: No: Chest Pain, Palpitations Gastrointestinal: No: Nausea, Abdominal Pain, Diarrhea Genitourinary: No Dysuria; Frequency, Incontinence Neurological: Weakness; No: Confusion Objective Exam Last Set of Vital Signs Vital Signs Date Time Temp Pulse Resp B/P (MAP) Pulse Ox O2 Delivery O2 Flow Rate FiO2 09/26/19 07:41 94 Nasal Cannula 3.00 09/26/19 00:00 36.6 73 16 158/87 (110) Capillary Refill : I&O Intake and Output 09/26/19 00:00 Intake Total 1700 ml Output Total 3350 ml Balance -1650 ml Intake Oral 1210 ml IV Total 490 ml Output Urine Total 3350 ml # Bowel Movements 2 General: Alert, Oriented X3, Cooperative, No Acute Distress HEENT: Atraumatic, PERRLA Neck: Supple Lungs: Other (DECREASED IN BASES BILATERALLY) Heart: Regular Rate Abdomen: Normal Bowel Sounds, Soft Extremities: No Cyanosis Skin: No Rashes, No Breakdown Neuro: Cranial Nerves 3-12 NL Psych/Mental Status: Mental Status NL, Mood NL Results Lab Laboratory Tests 09/26/19 04:30: Sodium Level 141, Potassium Level 3.9, Chloride Level 105, Carbon Dioxide Level 27, Anion Gap 9, Blood Urea Nitrogen 18, Creatinine 0.71, Estimat Glomerular Filtration Rate > 60, BUN/Creatinine Ratio 25, Glucose Level 125H, Calcium Level 8.4L Microbiology 09/22/19 Blood Culture - Preliminary, Resulted No growth 09/23/19 Mycobacterial Culture - Preliminary, Resulted Assessment/Plan Assessment/Plan Assess & Plan/Chief Complaint PNEUMONIA COPD EXACERBATION - ACUTE HYPERTENSION ESOPHAGEAL REFLUX PNEUMONIA WITH COPD EXACERBATION - ACUTE - PT HOSPITALIZED, STARTED ON IV ANTIBIOTICS, WILL DEFER TO DR. CELESTE - ANTICIPATE THE PATIENT BEING IN THE HOSPITAL FOR AT LEAST 72 HOURS. - BRONCHOSCOPY COMPLETED, WASHING CULTURES PENDING HYPERTENSION - STOPPED LISINOPRIL DUE TO HER COUGH - STARTED LOSARTAN 25MG DAILY DUE TO HER HIGH BP AND THE ISSUES WITH AIDA-I INCREASING RISK OF CHRONIC COUGH ESOPHAGEAL REFLUX - STARTED PPI PT WOULD LIKE DISCHARGE TODAY - HOWEVER WITH HER CHEST XRAY AND SYMPTOMS, WILL KEEP PT ONE MORE DAY AND PERFORM AMBULATORY OXYGEN. Clinical Quality Measures Admission Status Admission Dx PNEUMONIA COPD EXACERBATION - ACUTE HYPERTENSION ESOPHAGEAL REFLUX DVT/VTE Risk/Contraindication: Risk Factor Score Per Nursin RFS Level Per Nursing on Admit: 3=High MARBIN JIMÉNEZ MD Sep 26, 2019 08:25 POS
[2019-09-26] MEDS: AZITHROMYCIN 250 MG/NS 250 ML IVPB IV SCH ×2 (14:38)
[2019-09-26 15:30] VITALS: BP 128/74
[2019-09-26] MEDS ORDERED: ANIDULAFUNGIN INJECTION 200 MG in NS (IVPB) 250 ML IV NR (16:00)
[2019-09-26] MEDS: ENOXAPARIN 40 MG/0.4 ML (LOVENOX) SYR SC SCH (20:27)
[2019-09-26] MEDS: DULoxetine 30 MG (CYMBALTA) CAP PO SCH ×2 (20:27)
[2019-09-26] MEDS: MONTELUKAST 10 MG (SINGULAIR) TAB PO SCH (20:27)
[2019-09-27 00:10] VITALS: BP 146/71
[2019-09-27 03:04] LABS: BUN/CREATININE RATIO 21; CALCIUM 8.4 MG/DL (8.5-10.1); CARBON DIOXIDE 26 MMOL/L (21-32); CHLORIDE 107 MMOL/L (98-107); CREATININE SERUM 0.77 MG/DL (0.60-1.30); GFR ESTIMATED > 60; GLUCOSE 87 MG/DL (70-105); POTASSIUM 3.9 MMOL/L (3.6-5.0); SODIUM 142 MMOL/L (135-145)
[2019-09-27] MEDS: KCL 20 MEQ TAB (K-DUR) PO SCH (04:26)
[2019-09-27] MEDS: POTASSIUM CL 10MEQ/50ML IVPB 50 ML IV SCH (04:26)
[2019-09-27] MEDS: MAGNESIUM 1 GM/100 ML IVPB 100 ML IV SCH (04:26)
[2019-09-27] MEDS: PIPERACILLIN/TAZO 4.5 GM/NS 100 ML IV SCH ×2 (05:11)
[2019-09-27] MEDS ORDERED: predniSONE 20 MG TAB PO SCH (07:00)
[2019-09-27] MEDS: RT-ALBUTEROL/IPRATROPIUM 3 ML (DUONEB) VIAL INH SCH ×2 (07:08→10:51)
[2019-09-27 08:00] VITALS: BP 135/82
[2019-09-27] MEDS ORDERED: ANIDULAFUNGIN INJECTION 100 MG in NS (IVPB) 100 ML IV SCH (09:00)
--- NOTE | 2019-09-27 09:24 | Diagnostic Imaging Report ---
INDICATION: Dyspnea. COMPARISON: 09/26/2019 FINDINGS: Bilateral interstitial lung disease greater left is an unchanged finding. No acute alveolar component superimposed is found and the heart size is stable. There is no vascular congestion and no pleural fluid. IMPRESSION: Unchanged asymmetric interstitial lung disease. Dictated by: Dictated on workstation # [id number]
[2019-09-27] MEDS: HYDROCHLOROTHIAZIDE 25 MG (HCTZ) TAB PO SCH (09:26)
[2019-09-27] MEDS: LOSARTAN 25 MG (COZAAR) TAB PO SCH (09:26)
[2019-09-27] MEDS: LORATADINE (CLARITIN) 10 MG TAB PO SCH (09:26)
[2019-09-27] MEDS: PANTOPRAZOLE 20 MG TABLET (PROTONIX) PO SCH (09:26)
[2019-09-27] MEDS ORDERED: KCL 20 MEQ TAB (K-DUR) PO NR (09:30)
[2019-09-27] MEDS ORDERED: FUROSEMIDE 40 MG/4 ML INJ (LASIX) IVP NR (09:30)
[2019-09-27] MEDS: NAPHA/PHEN (NAPHCON-A, OPCON-A) OP SOLN 15 ML BTL OU SCH (09:31)
[2019-09-27] MEDS ORDERED: FLUC150T PO (09:55)
[2019-09-27] MEDS ORDERED: LOSA25TA41 PO (09:55)
[2019-09-27] MEDS ORDERED: PRD20T PO (09:55)
[2019-09-27] MEDS ORDERED: AMOX-358 PO (09:55)
--- NOTE | 2019-09-27 09:57 | Discharge Inst-Complex ---
PDI Reconcile Patient Problems Problems Reviewed?: Yes Med Rec & Follow Up Appt. New Medications: Amoxicillin/Potassium Clav (Augmentin 875-125 Tablet) 1 Each Tablet 1 EACH PO BID, #20 TAB Fluconazole (Diflucan) 150 Mg Tablet 150 MG PO DAILY, #10 TAB Losartan Potassium (Losartan Potassium) 25 Mg Tablet 25 MG PO DAILY, #30 TAB 6 Refills Prednisone (Prednisone) 20 Mg Tab 20 MG PO UD, #14 TAB 2tab/dayx 4days, 1tab/day x4days, 1/2tab/day x 4days then stop Continued Medications: Albuterol Sulfate (Ventolin Hfa) 1 Puff Puff 2 PUFF INH Q4H PRN for SHORTNESS OF BREATH, INHALER Calcium Carbonate/Vitamin D3 (Calcium 500 + Vit D 200 Caplet) 1 Each Tablet 1 TAB PO DAILY, TAB Cetirizine HCl (Zyrtec) 10 Mg Tablet 10 MG PO DAILY, TAB Cyanocobalamin (Vitamin B-12) (Vitamin B-12) 1,000 Mcg Tablet 1000 MCG PO DAILY, TAB Cyclosporine (Restasis) 1 Each Droperette 1 DROP OU BID, EA Duloxetine HCl (Duloxetine HCl) 60 Mg Capsule.dr 60 MG PO HS, CAP Estradiol (Estradiol Patch Weekly 0.05mg/hr) 1 Each Patch.tdsw 0.5 MG TD SuTh, PATCH Fluticasone Propionate (Flonase Allergy Relief) 9.9 Ml Whipple.susp 1 SPRAY NS DAILY PRN for ALLERGIES, EA Ginkgo Biloba Extract (Ginkgo Biloba) 120 Mg Capsule 120 MG PO DAILY, CAP Hydrochlorothiazide (Hydrochlorothiazide) 25 Mg Tablet 25 MG PO DAILY, TAB Montelukast Sodium (Montelukast Sodium) 10 Mg Tablet 10 MG PO HS, TAB Multivitamin (Multi-Vitamin Daily) 1 Each Tablet 1 TAB PO DAILY, TAB Olopatadine HCl (Olopatadine HCl) 2.5 Ml Drops 1 DROP OU DAILY, EA Omeprazole (Omeprazole) 40 Mg Capsule.dr 40 MG PO DAILY, CAP Tramadol HCl (Tramadol HCl) 50 Mg Tablet 50-100 MG PO Q4H PRN for PAIN-MODERATE (5-7), TAB Umeclidinium Brm/Vilanterol Tr (Anoro Ellipta 62.5-25 Mcg INH) 1 Each Blst.w.dev 1 PUFF INH DAILY, INHALER Vitamin B Complex (Vitamin B Complex) 1 Each Tablet 1 TAB PO DAILY, TAB Discontinued Medications: Azithromycin (Azithromycin) 250 Mg Tablet 250 MG PO UD, #6 TAB FILLED 09-21-19 TAKE 2 TABLETS ON DAY ONE THEN TAKE 1 TABLET DAILY FOR FOUR MORE DAYS Cefdinir (Cefdinir) 300 Mg Capsule 300 MG PO BID for 7 Days, CAP 7 DAY SUPPLY FILLED 09-21-19 Lisinopril (Lisinopril) 10 Mg Tablet 10 MG PO DAILY, TAB Prescription: Transmitted to Pharmacy Patient Instructions: take a probiotic twice daily when taking antibiotics take the steroid with food follow up in [facility] in [address] nieto in 10 -14 days Activity, Diet and PDI Resume Normal Activity: Yes Discharge Diet: Regular Diet Drink 6-8 Glasses of Fluid/Day: Yes Driving Instructions: No Driving for 24 Hours Return to The Hospital For: any concern for lifethreatening illness or injury Symptoms to Reoprt to : Fever Over 101 Degrees F, Pain/Pressure in Chest, C ough Up/Vomit Blood, Heart Beat Irreg/Pounding, Pain/Pressure in Jaw, Lightheadedness, Diarrhea(Persistant), Shortness of Breath (worse than usual) For Problems or Questions: Contact Your Physician, Go to Emergency Room Infection Signs and Symptoms: Temperature Above 101 F MARBIN JIMÉNEZ MD Sep 27, 2019 09:57 POS
--- NOTE | 2019-09-27 10:18 | Discharge Summary ---
Diagnosis/Chief Complaint Date of Admission Sep 22, 2019 at 10:29 Date of Discharge Discharge Date: Sep 27, 2019 Discharge Time: 1130 Admission Diagnosis Admission Diagnosis PNEUMONIA COPD EXACERBATION - ACUTE HYPERTENSION ESOPHAGEAL REFLUX Discharge Diagnosis PNEUMONIA - ACID FAST BACILLI ON PRELIMINARY CULTURE COPD EXACERBATION - ACUTE HYPERTENSION ESOPHAGEAL REFLUX Reason Hospital Visit PT IS A 68 Y/O FEMALE WHO IS KNOWN TO ME FROM CLINIC. SHE HAS APPARENTLY NOT BEEN FEELING WELL FOR ABOUT A MONTH - WAS SEEN BY DR. CELESTE'S NURSE PRACTITIONER AND GIVEN ANTIBIOTICS AT THE END OF AUGUST, SHE DID NOT FEEL WELL AFTER THE ANTIBIOTICS, WANTED THEM EXTENDED, BUT HAD TROUBLE GETTING IN TOUCH WITH HIS STAFF AND SHE NEVER CALLED MY OFFICE FOR AN APPT. SHE "SUFFERED THROUGH IT" AND THEN FINALLY GOT IN TO BE SEEN ON THURSDAY, THEY WANTED TO ADMIT HER AT THAT TIME, BUT SHE REFUSED BECAUSE SHE HAD A CONCERT TO PLAY AT ON THURSDAY. SHE THEN CALLED THEN ON THURSDAY AND SAID THAT SHE WAS FEELING WORSE AND SHE WAS THEREFORE ADMITTED TO THE HOSPITAL FROM HIS CLINIC TODAY. Discharge Summary Discharge Physical Examination Allergies: Coded Allergies: lisinopril (Verified Adverse Reaction, Mild, cough, 09/25/19) Vitals & I&Os Vital Signs Date Time Temp Pulse Resp B/P (MAP) Pulse Ox O2 Delivery O2 Flow Rate FiO2 09/27/19 08:00 35.8 78 18 135/82 (99) 92 NIV CPAP 09/27/19 07:08 3.00 General Appearance: Alert, Oriented X3, Cooperative, No Acute Distress HEENT: Atraumatic, PERRLA, Mucous Memb Moist/[place] Respiratory: Other (DECREASED IN BASES WITH CRACKLES - BUT IMPROVED OVERALL AIRMOVEMENT) Cardiovascular: Regular Rate Abdominal: Normal Bowel Sounds, Soft, No Tenderness Extremities: No Clubbing, No Cyanosis Skin: No Rashes Neuro: Strength at 5/5 X4 Ext, Cranial Nerves 3-12 NL Psych/Mental Status: Mental Status NL, Mood NL Hospital Course Was the Problem List Reviewed?: Yes PNEUMONIA COPD EXACERBATION - ACUTE HYPERTENSION ESOPHAGEAL REFLUX PNEUMONIA WITH COPD EXACERBATION - ACUTE - PT HOSPITALIZED, STARTED ON IV ANTIBIOTICS, WILL DEFER TO DR. CELESTE - INITIALLY ON ZOSYN, ERAXIS ADDED BY DR. CELESTE, WILL START HER ON DIFLUCAN AND AUGMENTIN OUTPATIENT FOR A TOTAL OF 10 DAYS EACH. - FOLLOW UP IN ONE WEEK WITH [facility] AND 10-[address] CELESTE'S OFFICE. - BRONCHOSCOPY COMPLETED, WASHING CULTURES PENDING - CHECK AMBULATORY OXYGEN PRIOR TO DISCHARGE, MAY NEED OXYGEN AMBULATORY. HYPERTENSION - STOPPED LISINOPRIL DUE TO HER COUGH - STARTED LOSARTAN 25MG DAILY DUE TO HER HIGH BP AND THE ISSUES WITH AIDA-I INCREASING RISK OF CHRONIC COUGH ESOPHAGEAL REFLUX - STARTED PPI PLANNING DISCHARGE TO HOME TODAY. Pending Labs Laboratory Tests 09/27/19 02:35: Sodium Level 142, Potassium Level 3.9, Chloride Level 107, Carbon Dioxide Level 26, Anion Gap 9, Blood Urea Nitrogen 16, Creatinine 0.77, Estimat Glomerular Filtration Rate > 60, BUN/Creatinine Ratio 21, Glucose Level 87, Calcium Level 8.4 Discharge Instructions to patient/family Please see electronic discharge instructions given to patient. Discharge Medications Reviewed and agree with Discharge Medication list on patient's Discharge Instruction sheet Clinical Quality Measures DVT/VTE Risk/Contraindication: Risk Factor Score Per Nursin RFS Level Per Nursing on Admit: 3=High MARBIN JIMÉNEZ MD Sep 27, 2019 10:18 POS
--- NOTE | 2019-09-27 10:57 | NUR ---
HOME O2 QUALIFICATION. PT PLACED ON ROOM AIR AT 1009 SPO2 98% ON 3LPM NC HR 68. PT 87% HR 74 ON ROOM AIR AT THIS TIME AFTER 42 MINUTES. PT PLACED ON 2LPM NC AND SPO2 INCREASES TO 94% AFTER 2 MINUTES HR 71.
--- NOTE | 2019-09-27 11:37 | Pulmonary Progress Note ---
Subjective Time Seen by a Provider: 11:37 Subjective/Events-last exam Pt feels improvement. Sepsis Event Evaluation Height, Weight, BMI Height: 5'4.00" Weight: 170lbs. 0.0oz. 77.889930vi; 28.17 BMI Method: Exam Exam Vital Signs Date Time Temp Pulse Resp B/P (MAP) Pulse Ox O2 Delivery O2 Flow Rate FiO2 09/27/19 10:51 87 Room Air 09/27/19 10:51 98 3.00 09/27/19 09:00 92 Nasal Cannula 3.00 09/27/19 08:00 35.8 78 18 135/82 (99) 92 NIV CPAP 09/27/19 07:08 93 Nasal Cannula 3.00 09/27/19 00:10 36.7 71 18 146/71 (96) 97 NIV CPAP 09/26/19 20:00 Nasal Cannula 3.00 09/26/19 19:41 93 Nasal Cannula 3.00 09/26/19 19:33 Nasal Cannula 3.00 09/26/19 15:33 96 Nasal Cannula 3.00 09/26/19 15:30 36.2 86 20 128/74 (92) 96 Nasal Cannula 3.00 I & O 09/27/19 07:00 Intake Total 1780 ml Output Total 2575 ml Balance -795 ml Height & Weight Height: 5'4.00" Weight: 170lbs. 0.0oz. 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 -Will f/u in2-3 wks as out pt -Probably MAC - Doubt TB -s/p bronchoscopy -Aguilar cultures pending -Respiratory viral panel COPDAE -Solumedrol - change to prednisone -SVNS -Oxygen LIDIA CELESTE DO Sep 27, 2019 11:37 POS
--- NOTE | 2019-09-27 12:00 | NUR ---
CM DISCHARGE PLANNING: Patient is discharging home today with her , self care. She has previously been on oxygen only with exertion. She had a repeat o2 study done today. She is now requiring oxygen continuously. Contacted her oxygen provider of [facility] to notify. Faxed updated orders et study to them. Also notified them of patient request for more portable tanks to be delivered to her home. [facility] processed this request. No further interventions noted at this time.
[2019-09-27 12:55] VITALS: BP 135/82
[2019-09-27] MEDS ORDERED: PIPERACILLIN/TAZO 4.5 GM/NS 100 ML IV SCH ×2 (13:00)
--- OUTSIDE RECORDS SUMMARY | 2019-10-18 12:35 | XMS REPORT | CCD ---
Author Author Naheed Smith POS Organization [facility] SP Address [address] [place] [address] Phone SP Care Team Providers Care Senior Biostatistician Name Role Phone POS PP Unavailable SP CCM Unavailable SP Summary Purpose Interface Exchange Insurance Providers Payer name Policy type / Coverage type POS democrat ID Effective Begin Date Effective POS Date [facility] Medicare Part B POS Unknown Unknown SP WPS Medicare Part B Medicare Part B SP Unknown Unknown SP Family history Sister Diagnosis Age At Onset POS Arthritis Unknown SP Mother Diagnosis Age At Onset POS Osteoporosis Unknown SP Parkinson's disease Unknown SP Alzheimer's Disease Unknown SP Cancer Unknown SP Father Diagnosis Age At Onset POS Coronary Artery Disease Unknown SP Social History Social History Element Codes Description POS Effective Dates POS Tobacco history SNOMED CT: 3949400 Quit less SPthan 5 years ago 04/19/2015 SP Marital status Unknown M arried SP 01/30/2015 SP Number of children Unknown 2 SP 01/30/2015 SP Number of years using tobacco Unknown 20 SP 01/30/[address]: 671230 Currently SP alcohol 01/30/2015 SP Frequency of drinks SNOMED CT: 696372437 7 SP per week 01/30/2015 SP Has the patient ever used illegal drugs? Unknown SP Has never used illegal drugs 015 SP Allergies, Adverse Reactions, Alerts Substance Reaction Codes POS Date Inactivated Date Status POS * NO KNOWN FOOD HEIDI RGIES POS Unknown 01/30/2015 SP Inactive Date Active SP Pollen SP Unknown 01/30/2015 No In active Date SP Active SP Seasonal SP Unknown 01/30/2015 No In active Date SP Active SP * NO KNOWN DRUG HEIDI RGIES SP Unknown 01/30/2015 No SPInactive Date Active SP Past Medical History Illness Codes Condition Status POS Onset Date Resolved Date POS Other abnormal and i nconclusive findings on diagnostic SP of breast ICD-9: 793.89 SPICD-10: R92.8 Active 03/15/2019 SP Unknown SP Encounter for screen ing mammogram for malignant neoplasm of SP ICD-9: V76.12 SPICD-10: Z12.31 Active 03/02/2019 SP Unknown SP Essential (primary) hypertension SP ICD-9: 401.1 SPICD-10: I10 Active 11/27/2016 SP Unknown SP Primary generalized (osteo)arthritis SP ICD-9: 715.09 SPICD-10: M15.0 Active 06/14/2018 SP Unknown SP Fibromyalgia ICD-9: SP ICD-10: M79.7 Active 06/14/2018 SP Unknown SP Encounter for immuni zation SP ICD-9: V03.82 SPICD-10: Z23 Active 12/10/2016 SP Unknown SP Encounter for genera l adult medical examination with SP findings ICD-9: V70.0 SPICD-10: Z00.01 Active 04/09/2017 SP Unknown SP Nonscarring hair los s, unspecified SP ICD-9: 704.00 SPICD-10: L65.9 Active 04/09/2017 SP Unknown SP Acute recurrent maxi llary sinusitis SP ICD-9: 461.0 SPICD-10: J01.01 Active 11/27/2016 SP Unknown SP Cough ICD-9: 786.2 SPICD-10: R05 Active 07/20/2016 SP Unknown SP Dyspnea, unspecified SP9: 786.09 ICD-10: R06.00 Active 07/20/2016 SP Unknown SP Hypersomnia, unspeci fied SP ICD-9: 780.54 SPICD-10: G47.10 Active 07/20/2016 SP Unknown SP Personal history of nicotine dependence SP ICD-9: V15.82 SPICD-10: Z87.891 Active 07/20/2016 SP Unknown SP Snoring ICD-9: 786.09 SPICD-10: R06.83 Active 07/20/2016 SP Unknown SP Other effects of hig h altitude, initial encounter SP ICD-9: 993.2 SPICD-10: T70.29XA Active 06/19/2016 SP Unknown SP Pain in left finger(s) SP9: 729.5 ICD-10: M79.645 Active 05/13/2016 SP Unknown SP Pain in left wrist ICD- SP 719.43 ICD-10: M25.532 Active 05/13/2016 SP Unknown SP Primary osteoarthrit is, left hand SP ICD-9: 715.34 SPICD-10: M19.042 Active 05/13/2016 SP Unknown SP INSECT BITE NEC-INFE CTED SP ICD-9: 919.5 Active 05/02 SP Unknown SP PREVENTIVE PHYSICAL EXAM SP ICD-9: V70.0 Active 04/02 SP Unknown SP ALLERGIC RHINITIS ICD-9: SP477.9 Active 01/30/2015 SP Tobacco use ICD-9: 305.1 SP Active 01/30/2015 SP Vaginal dryness, men opausal SP ICD-9: 627.2 Active 01/02 SP Unknown SP Problems Condition Codes Effectiv e Dates POS Condition Status POS Other abnormal and i nconclusive findings on diagnostic SP of breast ICD-9: 793.89 SPICD-10: R92.8 03/15/2019 Active SP Encounter for screen ing mammogram for malignant neoplasm of SP ICD-9: V76.12 SPICD-10: Z12.31 03/02/2019 Active SP Essential (primary) hypertension SP ICD-9: 401.1 SPICD-10: I10 11/27/2016 Active SP Primary generalized (osteo)arthritis SP ICD-9: 715.09 SPICD-10: M15.0 06/14/2018 Active SP Fibromyalgia ICD-9: SP ICD-10: M79.7 06/14/2018 Active SP Encounter for immuni zation SP ICD-9: V03.82 SPICD-10: Z23 12/10/2016 Active SP Encounter for genera l adult medical examination with SP findings ICD-9: V70.0 SPICD-10: Z00.01 04/09/2017 Active SP Nonscarring hair los s, unspecified SP ICD-9: 704.00 SPICD-10: L65.9 04/09/2017 Active SP Acute recurrent maxi llary sinusitis SP ICD-9: 461.0 SPICD-10: J01.01 11/27/2016 Active SP Cough ICD-9: 786.2 SPICD-10: R05 07/20/2016 Active SP Dyspnea, unspecified SP9: 786.09 ICD-10: R06.00 07/20/2016 Active SP Hypersomnia, unspeci fied SP ICD-9: 780.54 SPICD-10: G47.10 07/20/2016 Active SP Personal history of nicotine dependence SP ICD-9: V15.82 SPICD-10: Z87.891 07/20/2016 Active SP Snoring ICD-9: 786.09 SPICD-10: R06.83 07/20/2016 Active SP Other effects of hig h altitude, initial encounter SP ICD-9: 993.2 SPICD-10: T70.29XA 06/19/2016 Active SP Pain in left finger(s) SP9: 729.5 ICD-10: M79.645 05/13/2016 Active SP Pain in left wrist ICD- SP 719.43 ICD-10: M25.532 05/13/2016 Active SP Primary osteoarthrit is, left hand SP ICD-9: 715.34 SPICD-10: M19.042 05/13/2016 Active SP INSECT BITE NEC-INFE CTED SP ICD-9: 919.5 05/13/2015 Active SP PREVENTIVE PHYSICAL EXAM SP ICD-9: V70.0 04/17/2015 Active SP ALLERGIC RHINITIS ICD-9: SP477.9 01/30/2015 Active SP Tobacco use ICD-9: 305.1 SP 01/30/2015 Active SP Vaginal dryness, men opausal SP ICD-9: 627.2 01/30/2015 Active SP Medications Medication Codes Instruc tions POS Start Date Stop Date Sta tus POS Fill Instructions POS tramadol 50 mg tablet SP 166644 1-2 Tablet(s) PO Q4-6H as needed SP No Stop Date Active SP tramadol 50 mg tablet SP 758135 1-2 Tablet(s) PO Q4-6H as needed SP No Stop Date Active SP hydrochlorothiazide 25 mg tablet SP RxNorm: 666799 1 TABLET(S) PO DAILY SP 04/11/2019 09/07/2019 Ac tive SP SP Voltaren 1 % topical gel SP RxNorm: 638895 2 Gram(s) TOP QID SP 08/20/2019 Active SP tramadol 50 mg tablet SP 584006 1-2 Tablet(s) PO Q4-6H as needed SP 06/16/2019 Inactive SP hydrochlorothiazide 25 mg tablet SP RxNorm: 531222 1 TABLET(S) PO DAILY SP 01/10/2019 04/10/2019 In active SP SP lisinopril 10 mg tablet SP 033623 1 TABLET(S) PO DAILY 12/16/2018 SP 09/11/2019 Active SP Cymbalta 60 mg capsu le,delayed release SP RxNorm: 843242 1 CAPSULE(S) PO DAILY SP 12/16/2018 12/10/2019 Ac tive SP SP tramadol 50 mg tablet SP 012578 1-2 Tablet(s) PO Q4-6H as needed SP 04/24/2019 Inactive SP Vivelle-Dot 0.05 mg/ 24 hr transdermal patch SP RxNorm: 940408 1 PATCH TD BIW SP 09/17/2018 09/11/2019 Ac tive SP 1 patch twice weekly SP tramadol 50 mg tablet SP 023645 1-2 Tablet(s) PO Q4-6H as needed SP 11/28/2018 Inactive SP hydrochlorothiazide 25 mg tablet SP RxNorm: 154312 1 TABLET(S) PO DAILY SP 08/20/2018 01/09/2019 In active SP SP lisinopril 10 mg tablet SP 165634 1 Tablet(s) PO daily 07/15/2018 SP 12/15/2018 Inactive SP Cymbalta 60 mg capsu le,delayed release SP RxNorm: 421962 1 Capsule(s) PO daily SP 07/15/2018 12/15/2018 In active SP SP Cymbalta 60 mg capsu le,delayed release SP RxNorm: 806607 1 Capsule(s) PO daily SP 07/08/2018 07/14/2018 In active SP SP Cymbalta 30 mg capsu le,delayed release SP RxNorm: 287127 1 Capsule(s) PO daily SP 06/14/2018 07/07/2018 In active SP SP hydrochlorothiazide 25 mg tablet SP RxNorm: 929677 1 TABLET(S) PO DAILY SP 04/08/2018 06/13/2018 In active SP SP Vivelle-Dot 0.05 mg/ 24 hr transdermal patch SP RxNorm: 723933 1 PATCH TD BIW SP 11/19/2017 09/16/2018 In active SP 1 patch twice weekly SP hydrochlorothiazide 25 mg tablet SP RxNorm: 776537 1 TABLET(S) PO DAILY SP 10/29/2017 03/27/2018 In active SP SP hydrochlorothiazide 25 mg tablet SP RxNorm: 481384 1 Tablet(s) PO daily SP 05/18/2017 10/28/2017 In active SP SP vitamin F84-louve ac id 2.5 mg-0.8 mg oral sublingual tablet SP RxNorm: 194986 1000mcg SP PO daily 04/09/2017 No Stop Date SP Active SP Vivelle-Dot 0.05 mg/ 24 hr transdermal patch SP RxNorm: 098429 1 PATCH TD BIW SP 01/01/2017 11/18/2017 In active SP 1 patch twice weekly SP omeprazole 40 mg cap parul,delayed release SP RxNorm: 488208 1 Capsule(s) PO daily SP 11/27/2016 12/26/2016 In active SP SP Levaquin 500 mg tablet SP 685813 1 Tablet(s) PO daily 11/27/2016 SP 12/03/2016 Inactive SP hydrochlorothiazide 25 mg tablet SP RxNorm: 121356 1 Tablet(s) PO daily SP 11/27/2016 05/17/2017 In active SP SP Voltaren 1 % topical gel SP RxNorm: 200987 2 Gram(s) TOP QID SP 07/12/2016 Inactive SP prednisone 10 mg tablet SP 420498 Tablet(s) PO UD 04/23/2016 SP 04/08/2017 Inactive SP Vivelle-Dot 0.05 mg/ 24 hr transdermal patch SP RxNorm: 549943 1 PATCH TD BIW SP 01/28/2016 12/31/2016 In active SP 1 patch twice weekly SP Bactrim DS 800 mg-16 0 mg tablet SP RxNorm: 426166 1 Tablet(s) PO BID SP 05/20/2015 Inactive SP Culturelle 10 billio n cell capsule SP RxNorm: 620018 1 Capsule(s) PO daily SP 05/14/2015 06/12/2015 In active SP SP Vitamin D3 1,000 uni t tablet SP RxNorm: 923095 5 (5000) Tablet(s) PO daily SP 04/18/2015 04/08/2017 In active SP SP Premarin 0.625 mg/gr am vaginal cream SP RxNorm: 303169 1 Gram(s) VAG 2 times weekly SP 02/22/2015 02/21/2015 SP SP Chantix 1 mg tablet SP 223959 1 Tablet(s) PO BID 02/22/2015 SP 02/21/2015 Inactive SP Chantix 1 mg tablet SP 946374 1 Tablet(s) PO BID 02/22/2015 SP 04/22/2015 Inactive [[facility] INGS SP NON-COVERED DRUGS -- BIN:[id number], PCN: [id number], Group: XXXXX, ID# [id number], Questions: . THIS IS NOT INSURANCE.] Premarin 0.625 mg/gr am vaginal cream SP RxNorm: 362663 1 Gram(s) VAG 2 times weekly SP 02/22/2015 09/19/2015 SP [SAVINGS FOR NON-COVERED DRUGS -- BIN:00 3585, PCN: ASPROD1, SPGroup: XXXXX, ID# [id number], Questions: . THIS IS NOT INSURANCE.] magnesium RxNorm: SP 900 PO daily 01/30/2015 SP Inactive [SAVINGS FOR NON-COVERED DR UGS SP BIN:745302, PCN: ASPROD1, Group: XXXXX, ID# [id number], Questions: . THIS IS NOT INSURANCE.] Vivelle-Dot 0.05 mg/ 24 hr transdermal patch SP RxNorm: 893287 2 TD QW SP 01/29/2015 Inactive SP Vivelle-Dot 0.05 mg/ 24 hr transdermal patch SP RxNorm: 570509 1 Patch TD BIW SP 01/30/2015 01/27/2016 In active SP 1 patch twice weekly SP Anoro Ellipta 62.5 m cg-25 mcg/actuation powder for SP RxNorm: 9910164 1 SP INH QAM No Start Date SP Active SP Pataday 0.2 % eye drops SP 8570889 Drop(s) OPH daily No Start Date SP Active SP Flonase Allergy Reli ef 50 mcg/actuation nasal SP RxNorm: 1 to each nare SPSpray NASAL daily No Start Date SP Active SP hydrochlorothiazide 25 mg tablet SP RxNorm: 684665 1 Tablet(s) PO daily SP No Start Date Active SP Zyrtec 10 mg capsule SP 2346953 1 Capsule(s) PO daily No Start SP [place] [address] oral No Start Date SP 04/08/2017 Inactive SP olive leaf extract oral SP oral No Start Date SP Inactive SP Singulair 10 mg tablet SP 593909 1 Tablet(s) PO daily No Start Date SP 02/21/2019 Inactive SP tramadol 50 mg tablet SP 076487 1-2 Tablet(s) PO Q4-6H as needed SP Start Date 09/06/2018 Inactive SP SP coenzyme Q10 200 mg capsule SP RxNorm: 863630 2 Capsule(s) PO daily No SPStart Date 02/21/2019 Inactive SP SP magnesium oral RxNorm: SP oral No Start Date SP Inactive SP Kadi oral RxNorm: SP oral No Start Date SP Inactive SP B Complex 1 tablet SP 1 Tablet(s) PO daily No Start Date SP 04/08/2017 Inactive SP Vitamin D3 1,000 uni t tablet SP RxNorm: 947431 5 (5000) Tablet(s) PO daily SP No Start Date 04/17/2015 Inactive SP SP vitamin X56-tvank ac id oral SP RxNorm: oral No Start D ate SP 04/08/2017 Inactive SP Calcium RxNorm: SP 1800 PO daily No Start Date SP Inactive SP Kadi-D 12 Hour oral SP 585717 oral No Start Date SP 01/29/2015 Inactive SP krill oil oral RxNorm: SP oral No Start Date SP Inactive SP Medication Administered No Medication Administered data Immunizations Vaccine Codes Date Status POS Influenza CVX: 141 10/13 POS completed SP Influenza CVX: 141 12/15 SP completed SP Pneumococcal (Adult) CVX: 33 10/13/2017 SP completed SP Influenza CVX: 141 12/11 SP completed SP Pneumococcal (Adult) CVX: 133 12/10/2016 SP completed SP Influenza CVX: 141 05/02 SP completed SP Diphtheria, Tetanus, Pertussis CVX: 20 SP completed SP Pneumococcal CVX: 33 11/2008 SP completed SP Assessments Condition Codes Effectiv e Dates POS Other abnormal and inconclusive findings on diagnostic imaging of breast POS ICD-10: R92.8 SPICD-9: 793.89 03/15/2019 SP Encounter for screening mammogram for ma lignant neoplasm of breast SP ICD-10: Z12.31 SPICD-9: V76.12 03/02/2019 SP Essential (primary) hypertension ICD -10: I10 SPICD-9: 401.1 02/22/2019 SP Primary generalized (osteo)arthritis ICD-10: M15.0 SPICD-9: 715.09 02/22/2019 SP Fibromyalgia ICD-10: M79.7 SPICD-9: 729.1 07/15/2018 SP Encounter for immunization ICD-10: Z 23 SPICD-9: V03.82 10/13/2017 SP Encounter for general adult medical exam ination with abnormal findings SP ICD-10: Z00.01 SPICD-9: V70.0 04/09/2017 SP Nonscarring hair loss, unspecified I CD-10: L65.9 SPICD-9: 704.00 04/09/2017 SP Acute recurrent maxillary sinusitis ICD-10: J01.01 SPICD-9: 461.0 11/27/2016 SP Hypersomnia, unspecified ICD-10: G47 .10 SPICD-9: 780.54 07/21/2016 SP Snoring ICD-10: R06.83 SPICD-9: 786.09 07/21/2016 SP Personal history of nicotine dependence ICD-10: Z87.891 SPICD-9: V15.82 07/21/2016 SP Cough ICD-10: R05 SPICD-9: 786.2 07/21/2016 SP Dyspnea, unspecified ICD-10: R06.00 SPICD-9: 786.09 07/21/2016 SP Other effects of high altitude, initial encounter ICD-10: SP ICD-9: 993.2 06/20/2016 SP Primary osteoarthritis, left hand IC D-10: M19.042 SPICD-9: 715.34 05/14/2016 SP Pain in left wrist ICD-10: M25.532 SPICD-9: 719.43 05/14/2016 SP Pain in left finger(s) ICD-10: M79.6 45 SPICD-9: 729.5 05/14/2016 SP INSECT BITE NEC-INFECTED ICD-9: 919.5 SP PREVENTIVE PHYSICAL EXAM ICD-9: V70.0 SP Tobacco use ICD-9: 305.1 01/30/2015 SP Vaginal dryness, menopausal ICD-9: 627.2 SP ALLERGIC RHINITIS ICD-9: 477.9 01/30/2015 SP Reason For Visit Reason For Visit Effective Dates Notes POS hypertension 02/22/2019 POS hypertension 07/15/2018 SP hypertension 06/14/2018 pain SP vaccination against pneumonia 10/13/2017 SP hypertension 04/09/2017 SP vaccination against pneumonia 12/10/2016 SP sinusitis 11/27/2016 SP dyspnea 07/21/2016 SP cough 06/20/2016 SP thumb and hand pain 05/14/2016 SP thumb and hand pain 04/23/2016 SP skin lesion 05/14/2015 SP _ 01/30/2015 She would l sebastián a RX to quit SP used chantix. She would like to try it. Results Observation Observation Code Item POS Item Code Result Date POS Comp Metabolic Phh289 NA POS 140 mEq/L 06/25/2018 SP Comp Metabolic Erp993 K SP 3.5 mEq/L 06/25/2018 SP Comp Metabolic Hoy480 CL SP 101 mEq/L 06/25/2018 SP Comp Metabolic Uxx310 CO2 SP 29.0 mEq/L 06/25/2018 SP Comp Metabolic Xrw149 AN ION GAP SP 14 06/25/2018 SP Comp Metabolic Njg762 GL UCOSE SP 107 mg/dL 06/25/2018 SP Comp Metabolic Gdh577 Cr eat SP 0.6 mg/dL 06/25/2018 SP Comp Metabolic Vvt698 eG FR SP 103 ml/min/1.73m2 06/03 SP Comp Metabolic Lnb968 BUN SP 10 mg/dL 06/25/2018 SP Comp Metabolic Lzh774 B/ C Ratio SP 16.4 Ratio 06/25/2018 SP Comp Metabolic Nbl176 CA LCIUM SP 9.1 mg/dL 06/25/2018 SP Comp Metabolic Efx917 AL K PHOS SP 65 U/L 06/25/2018 SP Comp Metabolic [address] T(SGOT) SP 17 U/L 06/25/2018 SP Comp Metabolic Bem959 AL T(SGPT) SP 13 U/L 06/25/2018 SP Comp Metabolic Nqs435 BI LI T SP 0.5 mg/dL 06/25/2018 SP Comp Metabolic Rtt500 AL BUMIN SP 3.8 g/dL 06/25/2018 SP Comp Metabolic Mzb300 TP RO SP 6.6 g/dL 06/25/2018 SP Comp Metabolic Opt298 GL OB SP 2.8 g/dL 06/25/2018 SP Comp Metabolic Kfd168 A/ G Ratio SP 1.3 Ratio 06/25/2018 SP Comp Metabolic Acg369 Os mo SP 279 mOsmo 06/25/2018 SP Lipid Ord30 CHOL SP 183 mg/dL 06/25/2018 SP Lipid Ord30 HDL SP 61.0 mg/dl 06/25/2018 SP Lipid Ord30 TRIG SP 111 mg/dL 06/25/2018 SP Lipid Ord30 LDL SP 100 mg/dL 06/25/2018 SP Lipid Ord30 C/HDL SP 3.0 Ratio 06/25/2018 SP Tsh Ord6 TSH (3rd IS) SP 1.73 uIU/mL 06/25/2018 SP Cbc With Differential Ord2 WBC SP 6.15 K/ul 06/25/2018 SP Cbc With Differential Ord2 RBC SP 4.06 M/ul 06/25/2018 SP Cbc With Differential Ord2 HGB SP 13.3 g/dl 06/25/2018 SP Cbc With Differential Ord2 HCT SP 40.5 % 06/25/2018 SP Cbc With Differential Ord2 Neut% SP 51.1 % 06/25/2018 SP Cbc With Differential Ord2 MCV SP 99.8 fl 06/25/2018 SP Cbc With Differential Ord2 Lymph% SP 25.9 % 06/25/2018 SP Cbc With Differential Ord2 MCH SP 32.8 pg 06/25/2018 SP Cbc With Differential Ord2 Gates% SP 10.6 % 06/25/2018 SP Cbc With Differential Ord2 MCHC SP 32.8 pg 06/25/2018 SP Cbc With Differential Ord2 Eos% SP 11.7 % 06/25/2018 SP Cbc With Differential Ord2 PLT SP 333 K/ul 06/25/2018 SP Cbc With Differential Ord2 Baso% SP 0.7 % 06/25/2018 SP Cbc With Differential Ord2 RDW SP 13.8 % 06/25/2018 SP Cbc With Differential Ord2 Neut ABS# SP 3.15 K/ul 06/25/2018 SP Cbc With Differential Ord2 Lymph ABS# SP 1.59 K/ul 06/25/2018 SP Cbc With Differential Ord2 Gates ABS# SP 0.7 K/ul 06/25/2018 SP Cbc With Differential Ord2 Eos ABS# SP 0.7 K/ul 06/25/2018 SP Cbc With Differential Ord2 Baso ABS# SP 0.0 K/ul 06/25/2018 SP Cbc With Differential Ord2 WBC SP 8.19 K/ul 04/09/2017 SP Cbc With Differential Ord2 RBC SP 3.96 M/ul 04/09/2017 SP Cbc With Differential Ord2 HGB SP 12.9 g/dl 04/09/2017 SP Cbc With Differential Ord2 HCT SP 39.9 % 04/09/2017 SP Cbc With Differential Ord2 Neut% SP 61.9 % 04/09/2017 SP Cbc With Differential Ord2 MCV SP 100.8 fl 04/09/2017 SP Cbc With Differential Ord2 Lymph% SP 28.3 % 04/09/2017 SP Cbc With Differential Ord2 MCH SP 32.6 pg 04/09/2017 SP Cbc With Differential Ord2 Gates% SP 7.9 % 04/09/2017 SP Cbc With Differential Ord2 MCHC SP 32.3 pg 04/09/2017 SP Cbc With Differential Ord2 Eos% SP 1.7 % 04/09/2017 SP Cbc With Differential Ord2 PLT SP 280 K/ul 04/09/2017 SP Cbc With Differential Ord2 Baso% SP 0.2 % 04/09/2017 SP Cbc With Differential Ord2 RDW SP 14.2 % 04/09/2017 SP Cbc With Differential Ord2 Neut ABS# SP 5.06 K/ul 04/09/2017 SP Cbc With Differential Ord2 Lymph ABS# SP 2.32 K/ul 04/09/2017 SP Cbc With Differential Ord2 Gates ABS# SP 0.7 K/ul 04/09/2017 SP Cbc With Differential Ord2 Eos ABS# SP 0.1 K/ul 04/09/2017 SP Cbc With Differential Ord2 Baso ABS# SP 0.0 K/ul 04/09/2017 SP Tsh Ord6 hTSH II SP 1.04 uIU/mL 04/09/2017 SP Comp Metabolic Xpd720 NA SP 140 mEq/L 04/09/2017 SP Comp Metabolic Ght376 K SP 3.7 mEq/L 04/09/2017 SP Comp Metabolic Vqi646 CL SP 104 mEq/L 04/09/2017 SP Comp Metabolic Zze287 CO2 SP 28.0 mEq/L 04/09/2017 SP Comp Metabolic Jrs084 AN ION GAP SP 12 04/09/2017 SP Comp Metabolic Ujq352 GL UCOSE SP 133 mg/dL 04/09/2017 SP Comp Metabolic Xgw063 Cr eat SP 0.6 mg/dL 04/09/2017 SP Comp Metabolic Etb346 eG FR SP 114 ml/min/1.73m2 06/2017 SP Comp Metabolic Gkg025 BUN SP 13 mg/dL 04/09/2017 SP Comp Metabolic Jxd485 B/ C Ratio SP 23.2 Ratio 04/09/2017 SP Comp Metabolic Xor703 CA LCIUM SP 9.2 mg/dL 04/09/2017 SP Comp Metabolic Dnt057 AL K PHOS SP 53 U/L 04/09/2017 SP Comp Metabolic Nra765 T(SGOT) SP 21 U/L 04/09/2017 SP Comp Metabolic Byd646 AL T(SGPT) SP 18 U/L 04/09/2017 SP Comp Metabolic Kqv793 BI LI T SP 0.4 mg/dL 04/09/2017 SP Comp Metabolic Dzg241 AL BUMIN SP 4.0 g/dL 04/09/2017 SP Comp Metabolic Pyv879 TP RO SP 7.0 g/dL 04/09/2017 SP Comp Metabolic Hcx433 GL OB SP 3.0 g/dL 04/09/2017 SP Comp Metabolic Suy408 A/ G Ratio SP 1.4 Ratio 04/09/2017 SP Comp Metabolic Yju582 Os mo SP 281 mOsmo 04/09/2017 SP Review of Systems System Result Effective Dates POS Constitutional No recent illness 02/22/2019 POS Constitutional No anorexia 02/22/2019 SP Constitutional No night sweats 02/22/2019 SP Constitutional No chills 02/22/2019 SP Constitutional No diaphoresis 02/22/2019 SP Constitutional No fatigue 02/22/2019 SP Constitutional No fever 02/22/2019 SP Constitutional No insomnia 02/22/2019 SP Constitutional No malaise 02/22/2019 SP Constitutional No weight loss 02/22/2019 SP Constitutional No weight gain 02/22/2019 SP Eyes No eye discharge SP Eyes No eye erythema SP Ears/Nose/Throat/Neck No dizziness SP Ears/Nose/Throat/Neck No headache 02/22/2019 SP Cardiovascular No chest pain/pressure SP Respiratory No cough SP Gastrointestinal No abdominal pain SP Gastrointestinal No constipation 02/22/2019 SP Gastrointestinal No diarrhea 02/22/2019 SP Genitourinary/Nephrology No dysuria SP Dermatologic No rash SP Neurologic No alteration of consciousness SP Psychiatric No anxiety 0 02/22/2019 SP Psychiatric depression 0 02/22/2019 SP Endocrine No dry or coarse skin 02/22/2019 SP Musculoskeletal myalgias 02/22/2019 SP Musculoskeletal joint complaint 02/22/2019 SP Constitutional No recent illness 07/15/2018 SP Constitutional No anorexia 07/15/2018 SP Constitutional No night sweats 07/15/2018 SP Constitutional No chills 07/15/2018 SP Constitutional No diaphoresis 07/15/2018 SP Constitutional No fatigue 07/15/2018 SP Constitutional No fever 07/15/2018 SP Constitutional No insomnia 07/15/2018 SP Constitutional No malaise 07/15/2018 SP Constitutional No weight loss 07/15/2018 SP Constitutional No weight gain 07/15/2018 SP Eyes No eye discharge SP Eyes No eye erythema SP Ears/Nose/Throat/Neck No dizziness SP Cardiovascular No chest pain/pressure SP Respiratory No cough SP Gastrointestinal No abdominal pain SP Gastrointestinal No constipation 07/15/2018 SP Gastrointestinal No diarrhea 07/15/2018 SP Genitourinary/Nephrology No dysuria SP Musculoskeletal joint complaint 07/15/2018 SP Musculoskeletal myalgias 07/15/2018 SP Dermatologic No rash SP Neurologic No alteration of consciousness SP Psychiatric No anxiety 0 07/15/2018 SP Psychiatric depression 0 07/15/2018 SP Endocrine No dry or coarse skin 07/15/2018 SP Ears/Nose/Throat/Neck No headache 07/15/2018 SP Constitutional No recent illness 06/14/2018 SP Constitutional No anorexia 06/14/2018 SP Constitutional No night sweats 06/14/2018 SP Constitutional No chills 06/14/2018 SP Constitutional fatigue 0 06/14/2018 SP Constitutional No diaphoresis 06/14/2018 SP Constitutional No fever 06/14/2018 SP Constitutional insomnia 06/14/2018 SP Constitutional No malaise 06/14/2018 SP Constitutional No weight loss 06/14/2018 SP Constitutional No weight gain 06/14/2018 SP Eyes No eye discharge SP Eyes No eye erythema SP Ears/Nose/Throat/Neck No dizziness SP Ears/Nose/Throat/Neck headache 06/14/2018 SP Cardiovascular No chest pain/pressure SP Musculoskeletal joint complaint 06/14/2018 SP Musculoskeletal myalgias 06/14/2018 SP Genitourinary/Nephrology No dysuria SP Respiratory No cough SP Dermatologic No rash SP Neurologic No alteration of consciousness SP Gastrointestinal No abdominal pain SP Gastrointestinal No constipation 06/14/2018 SP Gastrointestinal No diarrhea 06/14/2018 SP Psychiatric No anxiety 0 06/14/2018 SP Psychiatric depression 0 06/14/2018 SP Endocrine No dry or coarse skin 06/14/2018 SP Endocrine hair loss 06/0 06/2017 SP Endocrine dry or coarse skin 04/09/2017 SP Constitutional No recent illness 04/09/2017 SP Constitutional No anorexia 04/09/2017 SP Constitutional No night sweats 04/09/2017 SP Constitutional No chills 04/09/2017 SP Constitutional No diaphoresis 04/09/2017 SP Constitutional fatigue 0 04/09/2017 SP Constitutional No fever 04/09/2017 SP Constitutional No insomnia 04/09/2017 SP Constitutional No malaise 04/09/2017 SP Constitutional weight gain 04/09/2017 SP Constitutional No weight loss 04/09/2017 SP Eyes No eye discharge SP Eyes No eye erythema 06/2017 SP Ears/Nose/Throat/Neck No dizziness SP Ears/Nose/Throat/Neck No headache 04/09/2017 SP Cardiovascular No chest pain/pressure SP Cardiovascular No edema 04/09/2017 SP Cardiovascular No dyspnea 04/09/2017 SP Respiratory No productive sputum 04/09/2017 SP Respiratory No chest congestion 04/09/2017 SP Respiratory No cough 06/2017 SP Gastrointestinal No abdominal pain SP Gastrointestinal No constipation 04/09/2017 SP Gastrointestinal No diarrhea 04/09/2017 SP Genitourinary/Nephrology No dysuria SP Musculoskeletal joint complaint 04/09/2017 SP Dermatologic No rash 06/2017 SP Neurologic No alteration of consciousness SP Constitutional No recent illness 11/27/2016 SP Constitutional No anorexia 11/27/2016 SP Constitutional No night sweats 11/27/2016 SP Constitutional No chills 11/27/2016 SP Constitutional No diaphoresis 11/27/2016 SP Constitutional No fatigue 11/27/2016 SP Constitutional No fever 11/27/2016 SP Constitutional No insomnia 11/27/2016 SP Constitutional No malaise 11/27/2016 SP Constitutional No weight loss 11/27/2016 SP Constitutional No weight gain 11/27/2016 SP Constitutional No obesity 11/27/2016 SP Eyes No eye pain 017 SP Eyes No vision change SP Ears/Nose/Throat/Neck No dizziness SP Ears/Nose/Throat/Neck No headache 11/27/2016 SP Cardiovascular No chest pain/pressure SP Cardiovascular No edema 11/27/2016 SP Cardiovascular No dyspnea 11/27/2016 SP Respiratory No chest congestion 11/27/2016 SP Respiratory No chest tightness 11/27/2016 SP Respiratory No cigarette smoking 11/27/2016 SP Respiratory No cough SP Gastrointestinal No constipation 11/27/2016 SP Gastrointestinal No diarrhea 11/27/2016 SP Gastrointestinal No abdominal pain SP Gastrointestinal No nausea 11/27/2016 SP Gastrointestinal No vomiting 11/27/2016 SP Genitourinary/Nephrology No anuria/oliguri a SP Genitourinary/Nephrology No dysuria SP Musculoskeletal No stiffness 11/27/2016 SP Musculoskeletal No swelling 11/27/2016 SP Musculoskeletal No arthralgia(s) 11/27/2016 SP Musculoskeletal No back pain 11/27/2016 SP Dermatologic No rash SP Dermatologic No sores SP Neurologic No dizziness 11/27/2016 SP Neurologic No headache 0 11/27/2016 SP Psychiatric No anxiety 0 11/27/2016 SP Psychiatric No depression 11/27/2016 SP Hematologic/Lymphatic No abnormal ec chymoses SP 11/27/2016 SP Hematologic/Lymphatic No abnormal bl eeding and bruising SP 11/27/2016 SP Constitutional No recent illness 07/21/2016 SP Constitutional anorexia 07/21/2016 SP Constitutional No night sweats 07/21/2016 SP Constitutional No chills 07/21/2016 SP Constitutional No diaphoresis 07/21/2016 SP Constitutional fatigue 0 07/21/2016 SP Constitutional No fever 07/21/2016 SP Constitutional No malaise 07/21/2016 SP Constitutional No insomnia 07/21/2016 SP Constitutional No weight loss 07/21/2016 SP Constitutional No weight gain 07/21/2016 SP Eyes No eye discharge SP Eyes No eye erythema SP Ears/Nose/Throat/Neck No dizziness SP Ears/Nose/Throat/Neck headache 07/21/2016 SP Ears/Nose/Throat/Neck nasal discharge SP Ears/Nose/Throat/Neck nasal allergies SP Cardiovascular No chest pain/pressure SP Cardiovascular No edema 07/21/2016 SP Respiratory No productive sputum 07/21/2016 SP Respiratory cough 2015 SP Respiratory dyspnea on exertion 07/21/2016 SP Gastrointestinal No abdominal pain SP Gastrointestinal No constipation 07/21/2016 SP Gastrointestinal No diarrhea 07/21/2016 SP Genitourinary/Nephrology No dysuria SP Musculoskeletal joint complaint 07/21/2016 SP Dermatologic No rash SP Neurologic No alteration of consciousness SP Constitutional recent illness 06/20/2016 SP Constitutional No night sweats 06/20/2016 SP Constitutional anorexia 06/20/2016 SP Constitutional No chills 06/20/2016 SP Constitutional No diaphoresis 06/20/2016 SP Constitutional fatigue 0 06/20/2016 SP Constitutional No fever 06/20/2016 SP Constitutional No insomnia 06/20/2016 SP Constitutional malaise 0 06/20/2016 SP Constitutional No weight loss 06/20/2016 SP Constitutional No weight gain 06/20/2016 SP Eyes No eye discharge SP Eyes No eye erythema SP Ears/Nose/Throat/Neck No dizziness SP Ears/Nose/Throat/Neck headache 06/20/2016 SP Ears/Nose/Throat/Neck nasal discharge SP Ears/Nose/Throat/Neck nasal allergies SP Ears/Nose/Throat/Neck No otalgia 06/20/2016 SP Ears/Nose/Throat/Neck sore throat 06/20/2016 SP Cardiovascular No chest pain/pressure SP Respiratory No productive sputum 06/20/2016 SP Respiratory cough 2015 SP Gastrointestinal No abdominal pain SP Gastrointestinal No constipation 06/20/2016 SP Gastrointestinal No diarrhea 06/20/2016 SP Genitourinary/Nephrology No dysuria SP Musculoskeletal myalgias 06/20/2016 SP Dermatologic No rash SP Neurologic No alteration of consciousness SP Psychiatric No anxiety 0 06/20/2016 SP Endocrine No dry or coarse skin 06/20/2016 SP Hematologic/Lymphatic No abnormal bl eeding and bruising SP 06/20/2016 SP Constitutional No recent illness 05/14/2016 SP Constitutional No fever 05/14/2016 SP Eyes No blindness 2015 SP Eyes No vision change SP Ears/Nose/Throat/Neck No nasal allergies SP Ears/Nose/Throat/Neck No nasal discharge SP Cardiovascular No chest pain/pressure SP Cardiovascular No dyspnea 05/14/2016 SP Respiratory No chest congestion 05/14/2016 SP Respiratory No cough SP Musculoskeletal joint complaint 05/14/2016 SP Dermatologic No rash SP Neurologic No alteration of consciousness SP Neurologic No mental status change SP Psychiatric No anxiety 0 05/14/2016 SP Psychiatric No depression 05/14/2016 SP Constitutional No recent illness 04/23/2016 SP Eyes No vision change SP Cardiovascular No chest pain/pressure SP Cardiovascular No dyspnea 04/23/2016 SP Respiratory No chest congestion 04/23/2016 SP Respiratory No cough SP Constitutional No fever 04/23/2016 SP Eyes No eye erythema SP Ears/Nose/Throat/Neck No nasal allergies SP Ears/Nose/Throat/Neck No nasal discharge SP Musculoskeletal joint complaint 04/23/2016 SP Dermatologic No rash SP Neurologic No alteration of consciousness SP Neurologic No mental status change SP Constitutional No recent illness 05/14/2015 SP Constitutional No fever 05/14/2015 SP Constitutional fatigue 0 05/14/2015 SP Genitourinary/Nephrology No dysuria SP Genitourinary/Nephrology No hematuria SP Gastrointestinal No abdominal pain SP Gastrointestinal No diarrhea 05/14/2015 SP Respiratory No chest congestion 05/14/2015 SP Respiratory No cough SP Cardiovascular No chest pain/pressure SP Cardiovascular No dyspnea 05/14/2015 SP Ears/Nose/Throat/Neck No dizziness SP Eyes No vision change SP Musculoskeletal No back pain 05/14/2015 SP Dermatologic sores 05/14 SP Neurologic No headache 0 05/14/2015 SP Eyes No eye pain 015 SP Ears/Nose/Throat/Neck No headache 05/14/2015 SP Cardiovascular No edema 05/14/2015 SP Cardiovascular No near-syncope/dizziness SP Cardiovascular No palpitations 05/14/2015 SP Respiratory cigarette smoking 05/14/2015 SP Gastrointestinal No vomiting 05/14/2015 SP Gastrointestinal No nausea 05/14/2015 SP Constitutional No recent illness 04/18/2015 SP Constitutional No chills 04/18/2015 SP Constitutional No fatigue 04/18/2015 SP Constitutional No fever 04/18/2015 SP Ears/Nose/Throat/Neck No dizziness SP Ears/Nose/Throat/Neck No headache 04/18/2015 SP Cardiovascular No chest pain/pressure SP Cardiovascular hypertension 04/18/2015 SP Respiratory No chest congestion 04/18/2015 SP Respiratory No cigarette smoking 04/18/2015 SP Dermatologic No rash SP Dermatologic No sores SP Musculoskeletal No back pain 04/18/2015 SP Genitourinary/Nephrology No hematuria SP Genitourinary/Nephrology No dysuria SP Ears/Nose/Throat/Neck No sore throat SP Neurologic No memory loss 04/18/2015 SP Psychiatric No anxiety 0 04/18/2015 SP Psychiatric No depression 04/18/2015 SP Constitutional No recent illness 01/30/2015 SP Constitutional No anorexia 01/30/2015 SP Constitutional No night sweats 01/30/2015 SP Constitutional No chills 01/30/2015 SP Constitutional No diaphoresis 01/30/2015 SP Constitutional No fatigue 01/30/2015 SP Constitutional No fever 01/30/2015 SP Constitutional No insomnia 01/30/2015 SP Constitutional No malaise 01/30/2015 SP Constitutional No weight loss 01/30/2015 SP Constitutional No weight gain 01/30/2015 SP Eyes No eye discharge SP Eyes No eye erythema SP Ears/Nose/Throat/Neck No dizziness SP Ears/Nose/Throat/Neck No headache 01/30/2015 SP Ears/Nose/Throat/Neck nasal allergies SP Ears/Nose/Throat/Neck nasal discharge SP Ears/Nose/Throat/Neck No otalgia 01/30/2015 SP Ears/Nose/Throat/Neck No sore throat SP Cardiovascular No chest pain/pressure SP Cardiovascular No dyspnea 01/30/2015 SP Cardiovascular No edema 01/30/2015 SP Respiratory No productive sputum 01/30/2015 SP Respiratory No chest congestion 01/30/2015 SP Respiratory No cough SP Gastrointestinal No abdominal pain SP Gastrointestinal No constipation 01/30/2015 SP Gastrointestinal No diarrhea 01/30/2015 SP Genitourinary/Nephrology No dysuria SP Musculoskeletal joint complaint 01/30/2015 SP Dermatologic No rash SP Dermatologic No sores SP Neurologic No alteration of consciousness SP Psychiatric No anxiety 0 01/30/2015 SP Psychiatric No depression 01/30/2015 SP Endocrine No hair loss 0 01/30/2015 SP Endocrine No polydipsia 01/30/2015 SP Endocrine No polyuria SP Hematologic/Lymphatic No abnormal bl eeding and bruising SP 01/30/2015 SP Physical Exam Exam Name System Name It em Name POS Status Result Effective Dates POS Notes POS Full Exam - General 1994 Constitutional SP appearance Overall: well developed SP 02/22/2019 None SP Full Exam - General 1994 Constitutional SP appearance Overall: in no acute distress SP 02/22/2019 None SP Full Exam - General 1994 Constitutional SP appearance Overall: well nourished SP 02/22/2019 None SP Full Exam - General 1994 Eyes SP Overall: conjunctiva clear SP 02/22/2019 None SP Full Exam - General 1994 Eyes SP Overall: cornea clear SP None SP Full Exam - General 1994 Eyes SP Overall: eyelids normal SP 02/22/2019 None SP Full Exam - General 1994 Eyes pupils and SP Overall: pupils equal, round, reacti ve to SPlight and accomodation 02/22/2019 None SP Full Exam - General 1994 Ears/Nose/Throat SP exam Overall: external auditory canals SP 02/22/2019 None SP Full Exam - General 1994 Ears/Nose/Throat SP exam Overall: tympanic membranes clear SP 02/22/2019 None SP Full Exam - General 1994 Ears/Nose/Throat SP cavity/pharynx/larynx Overall: oral SP clear 02/22/2019 None SP Full Exam - General 1994 Ears/Nose/Throat SP cavity/pharynx/larynx Overall: SP mucosa clear 02/22/2019 None SP Full Exam - General 1994 Ears/Nose/Throat SP cavity/pharynx/larynx Overall: no masses SP 02/22/2019 None SP Full Exam - General 1994 Respiratory SP Overall: breath sounds clear bilater ally SP 02/22/2019 None SP Full Exam - General 1994 Respiratory SP effort/rhythm Overall: no retractions SP 02/22/2019 None SP Full Exam - General 1994 Respiratory SP effort/rhythm Overall: normal rate SP 02/22/2019 None SP Full Exam - General 1994 Cardiovascular SP of heart Overall: regular rate SP 02/22/2019 None SP Full Exam - General 1994 Cardiovascular SP of heart Overall: normal heart sounds SP 02/22/2019 None SP Full Exam - General 1994 Cardiovascular SP of heart Overall: no murmurs SP 02/22/2019 None SP Full Exam - General 1994 Abdomen abdominal SP Overall: no tenderness SP None SP Full Exam - General 1994 Abdomen abdominal SP Overall: normal bowel sounds SP 02/22/2019 None SP Full Exam - General 1994 Lymphatic neck SP Overall: anterior cervical chain jennifer ign SP 02/22/2019 None SP Full Exam - General 1994 Lymphatic neck SP Overall: posterior cervical chain be nign SP 02/22/2019 None SP Full Exam - General 1994 Integument SP of skin Overall: no rash, lesions SP 02/22/2019 None SP Full Exam - General 1994 Neurologic deep SP reflexes Overall: deep tendon reflexes SP 02/22/2019 None SP Full Exam - General 1994 Neurologic cranial SP Overall: crainial nerves 2 - 12 antonia sly SP 02/22/2019 None SP Full Exam - General 1994 Psychiatric SP Overall: oriented to person, place a nd SP 02/22/2019 None SP Full Exam - General 1994 Constitutional SP appearance Overall: well developed SP 07/15/2018 None SP Full Exam - General 1994 Constitutional SP appearance Overall: in no acute distress SP 07/15/2018 None SP Full Exam - General 1994 Constitutional SP appearance Overall: well nourished SP 07/15/2018 None SP Full Exam - General 1994 Eyes SP Overall: conjunctiva clear SP 07/15/2018 None SP Full Exam - General 1994 Eyes SP Overall: cornea clear SP None SP Full Exam - General 1994 Eyes SP Overall: eyelids normal SP 07/15/2018 None SP Full Exam - General 1994 Eyes pupils and SP Overall: pupils equal, round, reacti ve to SPlight and accomodation 07/15/2018 None SP Full Exam - General 1994 Ears/Nose/Throat SP exam Overall: external auditory canals SP 07/15/2018 None SP Full Exam - General 1994 Ears/Nose/Throat SP exam Overall: tympanic membranes clear SP 07/15/2018 None SP Full Exam - General 1994 Ears/Nose/Throat SP cavity/pharynx/larynx Overall: oral SP clear 07/15/2018 None SP Full Exam - General 1994 Ears/Nose/Throat SP cavity/pharynx/larynx Overall: SP mucosa clear 07/15/2018 None SP Full Exam - General 1994 Ears/Nose/Throat SP cavity/pharynx/larynx Overall: no masses SP 07/15/2018 None SP Full Exam - General 1994 Respiratory SP Overall: breath sounds clear bilater ally SP 07/15/2018 None SP Full Exam - General 1994 Respiratory SP effort/rhythm Overall: no retractions SP 07/15/2018 None SP Full Exam - General 1994 Respiratory SP effort/rhythm Overall: normal rate SP 07/15/2018 None SP Full Exam - General 1994 Cardiovascular SP of heart Overall: regular rate SP 07/15/2018 None SP Full Exam - General 1994 Cardiovascular SP of heart Overall: normal heart sounds SP 07/15/2018 None SP Full Exam - General 1994 Cardiovascular SP of heart Overall: no murmurs SP 07/15/2018 None SP Full Exam - General 1994 Abdomen abdominal SP Overall: no tenderness SP None SP Full Exam - General 1994 Abdomen abdominal SP Overall: normal bowel sounds SP 07/15/2018 None SP Full Exam - General 1994 Lymphatic neck SP Overall: anterior cervical chain jennifer ign SP 07/15/2018 None SP Full Exam - General 1994 Lymphatic neck SP Overall: posterior cervical chain be nign SP 07/15/2018 None SP Full Exam - General 1994 Integument SP of skin Overall: no rash, lesions SP 07/15/2018 None SP Full Exam - General 1994 Neurologic deep SP reflexes Overall: deep tendon reflexes SP 07/15/2018 None SP Full Exam - General 1994 Neurologic cranial SP Overall: crainial nerves 2 - 12 antonia sly SP 07/15/2018 None SP Full Exam - General 1994 Psychiatric SP Overall: oriented to person, place a nd SP 07/15/2018 None SP Full Exam - General 1994 Constitutional SP appearance Overall: well developed SP 06/14/2018 None SP Full Exam - General 1994 Constitutional SP appearance Overall: in no acute distress SP 06/14/2018 None SP Full Exam - General 1994 Constitutional SP appearance Overall: well nourished SP 06/14/2018 None SP Full Exam - General 1994 Eyes SP Overall: conjunctiva clear SP 06/14/2018 None SP Full Exam - General 1994 Eyes SP Overall: cornea clear SP None SP Full Exam - General 1994 Eyes SP Overall: eyelids normal SP 06/14/2018 None SP Full Exam - General 1994 Eyes pupils and SP Overall: pupils equal, round, reacti ve to SPlight and accomodation 06/14/2018 None SP Full Exam - General 1994 Ears/Nose/Throat SP exam Overall: external auditory canals SP 06/14/2018 None SP Full Exam - General 1994 Ears/Nose/Throat SP exam Overall: tympanic membranes clear SP 06/14/2018 None SP Full Exam - General 1994 Ears/Nose/Throat SP cavity/pharynx/larynx Overall: oral SP clear 06/14/2018 None SP Full Exam - General 1994 Ears/Nose/Throat SP cavity/pharynx/larynx Overall: SP mucosa clear 06/14/2018 None SP Full Exam - General 1994 Ears/Nose/Throat SP cavity/pharynx/larynx Overall: no masses SP 06/14/2018 None SP Full Exam - General 1994 Respiratory SP Overall: breath sounds clear bilater ally SP 06/14/2018 None SP Full Exam - General 1994 Respiratory SP effort/rhythm Overall: no retractions SP 06/14/2018 None SP Full Exam - General 1994 Respiratory SP effort/rhythm Overall: normal rate SP 06/14/2018 None SP Full Exam - General 1994 Cardiovascular SP of heart Overall: regular rate SP 06/14/2018 None SP Full Exam - General 1994 Cardiovascular SP of heart Overall: normal heart sounds SP 06/14/2018 None SP Full Exam - General 1994 Cardiovascular SP of heart Overall: no murmurs SP 06/14/2018 None SP Full Exam - General 1994 Abdomen abdominal SP Overall: no tenderness SP None SP Full Exam - General 1994 Abdomen abdominal SP Overall: normal bowel sounds SP 06/14/2018 None SP Full Exam - General 1994 Lymphatic neck SP Overall: anterior cervical chain jennifer ign SP 06/14/2018 None SP Full Exam - General 1994 Lymphatic neck SP Overall: posterior cervical chain be nign SP 06/14/2018 None SP Full Exam - General 1994 Integument SP of skin Overall: no rash, lesions SP 06/14/2018 None SP Full Exam - General 1994 Neurologic deep SP reflexes Overall: deep tendon reflexes SP 06/14/2018 None SP Full Exam - General 1994 Neurologic cranial SP Overall: crainial nerves 2 - 12 antonia sly SP 06/14/2018 None SP Full Exam - General 1994 Psychiatric SP Overall: oriented to person, place a nd SP 06/14/2018 None SP Full Exam - General 1994 Constitutional SP appearance Overall: well developed SP 04/09/2017 None SP Full Exam - General 1994 Constitutional SP appearance Overall: in no acute distress SP 04/09/2017 None SP Full Exam - General 1994 Constitutional SP appearance Overall: well nourished SP 04/09/2017 None SP Full Exam - General 1994 Eyes SP Overall: conjunctiva clear SP 04/09/2017 None SP Full Exam - General 1994 Eyes SP Overall: cornea clear SP None SP Full Exam - General 1994 Eyes SP Overall: eyelids normal SP 04/09/2017 None SP Full Exam - General 1994 Eyes pupils and SP Overall: pupils equal, round, reacti ve to SPlight and accomodation 04/09/2017 None SP Full Exam - General 1994 Ears/Nose/Throat SP exam Overall: external auditory canals SP 04/09/2017 None SP Full Exam - General 1994 Ears/Nose/Throat SP exam Overall: tympanic membranes clear SP 04/09/2017 None SP Full Exam - General 1994 Ears/Nose/Throat SP cavity/pharynx/larynx Overall: oral SP clear 04/09/2017 None SP Full Exam - General 1994 Ears/Nose/Throat SP cavity/pharynx/larynx Overall: SP mucosa clear 04/09/2017 None SP Full Exam - General 1994 Ears/Nose/Throat SP cavity/pharynx/larynx Overall: no masses SP 04/09/2017 None SP Full Exam - General 1994 Respiratory SP Overall: breath sounds clear bilater ally SP 04/09/2017 None SP Full Exam - General 1994 Respiratory SP effort/rhythm Overall: no retractions SP 04/09/2017 None SP Full Exam - General 1994 Respiratory SP effort/rhythm Overall: normal rate SP 04/09/2017 None SP Full Exam - General 1994 Cardiovascular SP of heart Overall: regular rate SP 04/09/2017 None SP Full Exam - General 1994 Cardiovascular SP of heart Overall: normal heart sounds SP 04/09/2017 None SP Full Exam - General 1994 Cardiovascular SP of heart Overall: no murmurs SP 04/09/2017 None SP Full Exam - General 1994 Abdomen abdominal SP Overall: no tenderness SP None SP Full Exam - General 1994 Abdomen abdominal SP Overall: normal bowel sounds SP 04/09/2017 None SP Full Exam - General 1994 Lymphatic neck SP Overall: anterior cervical chain jennifer ign SP 04/09/2017 None SP Full Exam - General 1994 Lymphatic neck SP Overall: posterior cervical chain be nign SP 04/09/2017 None SP Full Exam - General 1994 Integument SP of skin Overall: no rash, lesions SP 04/09/2017 None SP Full Exam - General 1994 Neurologic deep SP reflexes Overall: deep tendon reflexes SP 04/09/2017 None SP Full Exam - General 1994 Neurologic cranial SP Overall: crainial nerves 2 - 12 antonia sly SP 04/09/2017 None SP Full Exam - General 1994 Psychiatric SP Overall: oriented to person, place a nd SP 04/09/2017 None SP Full Exam - General 1994 Constitutional SP appearance Overall: well developed SP 11/27/2016 None SP Full Exam - General 1994 Constitutional SP appearance Overall: in no acute distress SP 11/27/2016 None SP Full Exam - General 1994 Constitutional SP appearance Overall: well nourished SP 11/27/2016 None SP Full Exam - General 1994 Eyes SP Overall: conjunctiva clear SP 11/27/2016 None SP Full Exam - General 1994 Eyes SP Overall: cornea clear SP None SP Full Exam - General 1994 Eyes SP Overall: eyelids normal SP 11/27/2016 None SP Full Exam - General 1994 Eyes pupils and SP Overall: pupils equal, round, reacti ve to SPlight and accomodation 11/27/2016 None SP Full Exam - General 1994 Ears/Nose/Throat SP exam Overall: external auditory canals SP 11/27/2016 None SP Full Exam - General 1994 Ears/Nose/Throat SP exam Overall: tympanic membranes clear SP 11/27/2016 None SP Full Exam - General 1994 Ears/Nose/Throat SP cavity/pharynx/larynx Overall: oral SP clear 11/27/2016 None SP Full Exam - General 1994 Ears/Nose/Throat SP cavity/pharynx/larynx Overall: SP mucosa clear 11/27/2016 None SP Full Exam - General 1994 Ears/Nose/Throat SP cavity/pharynx/larynx Overall: no masses SP 11/27/2016 None SP Full Exam - General 1994 Respiratory SP Overall: breath sounds clear bilater ally SP 11/27/2016 None SP Full Exam - General 1994 Respiratory SP effort/rhythm Overall: no retractions SP 11/27/2016 None SP Full Exam - General 1994 Respiratory SP effort/rhythm Overall: normal rate SP 11/27/2016 None SP Full Exam - General 1994 Cardiovascular SP of heart Overall: regular rate SP 11/27/2016 None SP Full Exam - General 1994 Cardiovascular SP of heart Overall: normal heart sounds SP 11/27/2016 None SP Full Exam - General 1994 Cardiovascular SP of heart Overall: no murmurs SP 11/27/2016 None SP Full Exam - General 1994 Abdomen abdominal SP Overall: no tenderness SP None SP Full Exam - General 1994 Abdomen abdominal SP Overall: normal bowel sounds SP 11/27/2016 None SP Full Exam - General 1994 Lymphatic neck SP Overall: anterior cervical chain jennifer ign SP 11/27/2016 None SP Full Exam - General 1994 Lymphatic neck SP Overall: posterior cervical chain be nign SP 11/27/2016 None SP Full Exam - General 1994 Integument SP of skin Overall: no rash, lesions SP 11/27/2016 None SP Full Exam - General 1994 Neurologic deep SP reflexes Overall: deep tendon reflexes SP 11/27/2016 None SP Full Exam - General 1994 Neurologic cranial SP Overall: crainial nerves 2 - 12 antonia sly SP 11/27/2016 None SP Full Exam - General 1994 Psychiatric SP Overall: oriented to person, place a nd SP 11/27/2016 None SP Full Exam - General 1994 Ears/Nose/Throat SP nose Sinus tenderness: left maxillary SP 11/27/2016 None SP Full Exam - General 1994 Ears/Nose/Throat SP nose Sinus tenderness: right maxillary SP 11/27/2016 None SP Full Exam - General 1994 Constitutional SP appearance Overall: well developed SP 07/21/2016 None SP Full Exam - General 1994 Constitutional SP appearance Overall: in no acute distress SP 07/21/2016 None SP Full Exam - General 1994 Constitutional SP appearance Overall: well nourished SP 07/21/2016 None SP Full Exam - General 1994 Eyes SP Overall: conjunctiva clear SP 07/21/2016 None SP Full Exam - General 1994 Eyes SP Overall: cornea clear SP None SP Full Exam - General 1994 Eyes SP Overall: eyelids normal SP 07/21/2016 None SP Full Exam - General 1994 Eyes pupils and SP Overall: pupils equal, round, reacti ve to SPlight and accomodation 07/21/2016 None SP Full Exam - General 1994 Ears/Nose/Throat SP exam Overall: external auditory canals SP 07/21/2016 None SP Full Exam - General 1994 Ears/Nose/Throat SP exam Overall: tympanic membranes clear SP 07/21/2016 None SP Full Exam - General 1994 Ears/Nose/Throat SP cavity/pharynx/larynx Overall: oral SP clear 07/21/2016 None SP Full Exam - General 1994 Ears/Nose/Throat SP cavity/pharynx/larynx Overall: SP mucosa clear 07/21/2016 None SP Full Exam - General 1994 Ears/Nose/Throat SP cavity/pharynx/larynx Overall: no masses SP 07/21/2016 None SP Full Exam - General 1994 Respiratory SP Overall: breath sounds clear bilater ally SP 07/21/2016 None SP Full Exam - General 1994 Respiratory SP effort/rhythm Overall: no retractions SP 07/21/2016 None SP Full Exam - General 1994 Respiratory SP effort/rhythm Overall: normal rate SP 07/21/2016 None SP Full Exam - General 1994 Cardiovascular SP of heart Overall: regular rate SP 07/21/2016 None SP Full Exam - General 1994 Cardiovascular SP of heart Overall: normal heart sounds SP 07/21/2016 None SP Full Exam - General 1994 Cardiovascular SP of heart Overall: no murmurs SP 07/21/2016 None SP Full Exam - General 1994 Abdomen abdominal SP Overall: no tenderness SP None SP Full Exam - General 1994 Abdomen abdominal SP Overall: normal bowel sounds SP 07/21/2016 None SP Full Exam - General 1994 Lymphatic neck SP Overall: anterior cervical chain jennifer ign SP 07/21/2016 None SP Full Exam - General 1994 Lymphatic neck SP Overall: posterior cervical chain be nign SP 07/21/2016 None SP Full Exam - General 1994 Integument SP of skin Overall: no rash, lesions SP 07/21/2016 None SP Full Exam - General 1994 Neurologic deep SP reflexes Overall: deep tendon reflexes SP 07/21/2016 None SP Full Exam - General 1994 Neurologic cranial SP Overall: crainial nerves 2 - 12 antonia sly SP 07/21/2016 None SP Full Exam - General 1994 Psychiatric SP Overall: oriented to person, place a nd SP 07/21/2016 None SP Full Exam - General 1994 Constitutional SP appearance Overall: well developed SP 06/20/2016 None SP Full Exam - General 1994 Constitutional SP appearance Overall: in no acute distress SP 06/20/2016 None SP Full Exam - General 1994 Constitutional SP appearance Overall: well nourished SP 06/20/2016 None SP Full Exam - General 1994 Eyes SP Overall: conjunctiva clear SP 06/20/2016 None SP Full Exam - General 1994 Eyes SP Overall: cornea clear SP None SP Full Exam - General 1994 Eyes SP Overall: eyelids normal SP 06/20/2016 None SP Full Exam - General 1994 Eyes pupils and SP Overall: pupils equal, round, reacti ve to SPlight and accomodation 06/20/2016 None SP Full Exam - General 1994 Ears/Nose/Throat SP exam Overall: external auditory canals SP 06/20/2016 None SP Full Exam - General 1994 Ears/Nose/Throat SP exam Overall: tympanic membranes clear SP 06/20/2016 None SP Full Exam - General 1994 Ears/Nose/Throat SP cavity/pharynx/larynx Overall: oral SP clear 06/20/2016 None SP Full Exam - General 1994 Ears/Nose/Throat SP cavity/pharynx/larynx Overall: SP mucosa clear 06/20/2016 None SP Full Exam - General 1994 Ears/Nose/Throat SP cavity/pharynx/larynx Overall: no masses SP 06/20/2016 None SP Full Exam - General 1994 Respiratory SP Overall: breath sounds clear bilater ally SP 06/20/2016 None SP Full Exam - General 1994 Respiratory SP effort/rhythm Overall: no retractions SP 06/20/2016 None SP Full Exam - General 1994 Respiratory SP effort/rhythm Overall: normal rate SP 06/20/2016 None SP Full Exam - General 1994 Cardiovascular SP of heart Overall: regular rate SP 06/20/2016 None SP Full Exam - General 1994 Cardiovascular SP of heart Overall: normal heart sounds SP 06/20/2016 None SP Full Exam - General 1994 Cardiovascular SP of heart Overall: no murmurs SP 06/20/2016 None SP Full Exam - General 1994 Abdomen abdominal SP Overall: no tenderness SP None SP Full Exam - General 1994 Abdomen abdominal SP Overall: normal bowel sounds SP 06/20/2016 None SP Full Exam - General 1994 Lymphatic neck SP Overall: anterior cervical chain jennifer ign SP 06/20/2016 None SP Full Exam - General 1994 Lymphatic neck SP Overall: posterior cervical chain be nign SP 06/20/2016 None SP Full Exam - General 1994 Integument SP of skin Overall: no rash, lesions SP 06/20/2016 None SP Full Exam - General 1994 Neurologic deep SP reflexes Overall: deep tendon reflexes SP 06/20/2016 None SP Full Exam - General 1994 Neurologic cranial SP Overall: crainial nerves 2 - 12 antonia sly SP 06/20/2016 None SP Full Exam - General 1994 Psychiatric SP Overall: oriented to person, place a nd SP 06/20/2016 None SP Full Exam - General 1994 Constitutional SP appearance Overall: well developed SP 05/14/2016 None SP Full Exam - General 1994 Constitutional SP appearance Overall: well nourished SP 05/14/2016 None SP Full Exam - General 1994 Eyes SP Overall: conjunctiva clear SP 05/14/2016 None SP Full Exam - General 1994 Eyes SP Overall: cornea clear SP None SP Full Exam - General 1994 Eyes SP Overall: eyelids normal SP 05/14/2016 None SP Full Exam - General 1994 Ears/Nose/Throat SP Overall: benign lips SP None SP Full Exam - General 1994 Ears/Nose/Throat SP Overall: normal dentition SP 05/14/2016 None SP Full Exam - General 1994 Ears/Nose/Throat SP cavity/pharynx/larynx Overall: oral SP clear 05/14/2016 None SP Full Exam - General 1994 Respiratory SP effort/rhythm Overall: no retractions SP 05/14/2016 None SP Full Exam - General 1994 Respiratory SP effort/rhythm Overall: normal rate SP 05/14/2016 None SP Full Exam - General 1994 Cardiovascular SP Overall: no clubbing SP None SP Full Exam - General 1994 Musculoskeletal SP extremity ROM - wrist: pain with flexion SP 05/14/2016 None SP Full Exam - General 1994 Musculoskeletal SP extremity ROM - wrist: pain with radial SP 05/14/2016 None SP Full Exam - General 1994 Musculoskeletal SP ribs and pelvis Overall: good posture SP 05/14/2016 None SP Full Exam - General 1994 Musculoskeletal SP and station Overall: normal gait SP 05/14/2016 None SP Full Exam - General 1994 Musculoskeletal SP and station Overall: normal station SP 05/14/2016 None SP Full Exam - General 1994 Integument SP of skin Overall: no rash, lesions SP 05/14/2016 None SP Full Exam - General 1994 Neurologic gait SP Overall: no ataxia, no unsteadiness SP 05/14/2016 None SP Full Exam - General 1994 Neurologic cranial SP Overall: crainial nerves 2 - 12 antonia sly SP 05/14/2016 None SP Full Exam - General 1994 Psychiatric SP Overall: oriented to person, place a nd SP 05/14/2016 None SP Full Exam - General 1994 Psychiatric mood SP affect Overall: normal mood and affect SP 05/14/2016 None SP Full Exam - General 1994 Psychiatric mood SP affect Mood: anxious SP None SP Full Exam - General 1994 Psychiatric SP Overall: well-groomed, good eye cont act SP 05/14/2016 None SP Full Exam - General 1994 Musculoskeletal SP extremity Palpation - wrist: tender SP 05/14/2016 at thumb base SP Full Exam - General 1994 Eyes SP Overall: conjunctiva clear SP 04/23/2016 None SP Full Exam - General 1994 Eyes SP Overall: cornea clear SP None SP Full Exam - General 1994 Eyes SP Overall: eyelids normal SP 04/23/2016 None SP Full Exam - General 1994 Ears/Nose/Throat SP Overall: benign lips SP None SP Full Exam - General 1994 Ears/Nose/Throat SP Overall: normal dentition SP 04/23/2016 None SP Full Exam - General 1994 Respiratory SP effort/rhythm Overall: no retractions SP 04/23/2016 None SP Full Exam - General 1994 Respiratory SP effort/rhythm Overall: normal rate SP 04/23/2016 None SP Full Exam - General 1994 Cardiovascular SP Overall: no clubbing SP None SP Full Exam - General 1994 Musculoskeletal SP and station Overall: normal gait SP 04/23/2016 None SP Full Exam - General 1994 Musculoskeletal SP and station Overall: normal station SP 04/23/2016 None SP Full Exam - General 1994 Neurologic cranial SP Overall: crainial nerves 2 - 12 antonia sly SP 04/23/2016 None SP Full Exam - General 1994 Psychiatric SP Overall: oriented to person, place a nd SP 04/23/2016 None SP Full Exam - General 1994 Psychiatric mood SP affect Overall: normal mood and affect SP 04/23/2016 None SP Full Exam - General 1994 Constitutional SP appearance Overall: well developed SP 04/23/2016 None SP Full Exam - General 1994 Constitutional SP appearance Overall: well nourished SP 04/23/2016 None SP Full Exam - General 1994 Ears/Nose/Throat SP cavity/pharynx/larynx Overall: oral SP clear 04/23/2016 None SP Full Exam - General 1994 Musculoskeletal SP ribs and pelvis Overall: good posture SP 04/23/2016 None SP Full Exam - General 1994 Musculoskeletal SP extremity Palpation - wrist: tender SP 04/23/2016 None SP Full Exam - General 1994 Musculoskeletal SP extremity ROM - wrist: pain with radial SP 04/23/2016 None SP Full Exam - General 1994 Musculoskeletal SP extremity ROM - wrist: pain with flexion SP 04/23/2016 None SP Full Exam - General 1994 Integument SP of skin Overall: no rash, lesions SP 04/23/2016 None SP Full Exam - General 1994 Neurologic gait SP Overall: no ataxia, no unsteadiness SP 04/23/2016 None SP Full Exam - General 1994 Psychiatric SP Overall: well-groomed, good eye cont act SP 04/23/2016 None SP Full Exam - General 1994 Psychiatric mood SP affect Mood: anxious SP None SP Full Exam - Dermatology Psychiatric SP Overall: oriented to person, place a nd SP 05/14/2015 None SP Full Exam - Dermatology Integument insp & SP - left lower extremity Lesion: papule SP 05/14/2015 Three small reddened 1cm diameter SP raised lesions to left knee/thigh. Skin intact, surrounding tissue without redness, warmth or edema. Full Exam - Dermatology Integument insp & SP - left lower extremity Location: on the SP 05/14/2015 None SP Full Exam - Dermatology Integument insp & SP - left lower extremity Color: SP 05/14/2015 None SP Full Exam - Dermatology Extremities SP & palpation billateral lower extremities SP clubbing or cyanosis 05/14/2015 None SP Full Exam - Dermatology Musculoskeletal gait SPand station Overall: normal gait SP 05/14/2015 None SP Full Exam - Dermatology Musculoskeletal gait SPand station Overall: normal station SP 05/14/2015 None SP Full Exam - Dermatology Lymphatic palpation SP Overall: benign anterior cervical ch ain SP 05/14/2015 None SP Full Exam - Dermatology Lymphatic palpation SP Overall: benign posterior cervical c susan SP 05/14/2015 None SP Full Exam - Dermatology Abdomen liver and SP exam Overall: normal active bowel sounds SP 05/14/2015 None SP Full Exam - Dermatology Abdomen liver and SP exam Overall: soft SP None SP Full Exam - Dermatology Cardiovascular SP vascular system Overall: S1S2 SP 05/14/2015 None SP Full Exam - Dermatology Respiratory SP Overall: breath sounds clear bilater ally SP 05/14/2015 None SP Full Exam - Dermatology Respiratory SP effort/rhythm Overall: no retractions SP 05/14/2015 None SP Full Exam - Dermatology Respiratory SP effort/rhythm Overall: normal rate SP 05/14/2015 None SP Full Exam - Dermatology Constitutional SP appearance Overall: well nourished SP 05/14/2015 None SP Full Exam - Dermatology Constitutional SP appearance Overall: well developed SP 05/14/2015 None SP Full Exam - Dermatology Constitutional SP appearance Overall: in no acute distress SP 05/14/2015 None SP Full Exam - Dermatology Constitutional SP appearance Overall: of normal body SP 05/14/2015 None SP Full Exam - Dermatology Constitutional SP appearance Overall: well groomed SP 05/14/2015 None SP Full Exam - General 1994 Psychiatric SP Overall: oriented to person, place a nd SP 04/18/2015 None SP Full Exam - General 1994 Psychiatric mood SP affect Overall: normal mood and affect SP 04/18/2015 None SP Full Exam - General 1994 Neurologic SP Overall: no dysdiadochokinesis, no SP 04/18/2015 None SP Full Exam - General 1994 Neurologic SP Overall: no tremors SP None SP Full Exam - General 1994 Neurologic cranial SP Overall: crainial nerves 2 - 12 antonia sly SP 04/18/2015 None SP Full Exam - General 1994 Neurologic gait SP Overall: no ataxia, no unsteadiness SP 04/18/2015 None SP Full Exam - General 1994 Integument SP of skin Overall: few scattered moles, no SP abnormalities 04/18/2015 None SP Full Exam - General 1994 Musculoskeletal SP and station Overall: normal gait SP 04/18/2015 None SP Full Exam - General 1994 Musculoskeletal SP and station Overall: normal station SP 04/18/2015 None SP Full Exam - General 1994 Musculoskeletal SP ribs and pelvis Overall: ribs benign SP 04/18/2015 None SP Full Exam - General 1994 Musculoskeletal SP ribs and pelvis Overall: spine benign SP 04/18/2015 None SP Full Exam - General 1994 Musculoskeletal SP ribs and pelvis Overall: sacroiliac joint SPbenign 04/18/2015 None SP Full Exam - General 1994 Lymphatic neck SP Overall: anterior cervical chain jennifer ign SP 04/18/2015 None SP Full Exam - General 1994 Lymphatic neck SP Overall: posterior cervical chain be nign SP 04/18/2015 None SP Full Exam - General 1994 Abdomen abdominal SP Overall: no tenderness SP None SP Full Exam - General 1994 Abdomen abdominal SP Overall: normal bowel sounds SP 04/18/2015 None SP Full Exam - General 1994 Cardiovascular SP Overall: no clubbing SP None SP Full Exam - General 1994 Cardiovascular SP of heart Overall: regular rate SP 04/18/2015 None SP Full Exam - General 1994 Cardiovascular SP of heart Overall: normal heart sounds SP 04/18/2015 None SP Full Exam - General 1994 Cardiovascular SP of heart Overall: no murmurs SP 04/18/2015 None SP Full Exam - General 1994 Respiratory SP effort/rhythm Overall: no retractions SP 04/18/2015 None SP Full Exam - General 1994 Respiratory SP effort/rhythm Overall: normal rate SP 04/18/2015 None SP Full Exam - General 1994 Respiratory SP Overall: breath sounds clear bilater ally SP 04/18/2015 None SP Full Exam - General 1994 Neck thyroid SP Overall: normal size SP None SP Full Exam - General 1994 Neck thyroid SP Overall: normal consistency SP None SP Full Exam - General 1994 Neck thyroid SP Overall: nontender 04/18 SP None SP Full Exam - General 1994 Neck thyroid SP Overall: no mass lesions SP None SP Full Exam - General 1994 Ears/Nose/Throat SP Overall: benign lips SP None SP Full Exam - General 1994 Ears/Nose/Throat SP Overall: normal dentition SP 04/18/2015 None SP Full Exam - General 1994 Ears/Nose/Throat SP Overall: benign gingiva SP 04/18/2015 None SP Full Exam - General 1994 Ears/Nose/Throat SP Overall: no masses SP None SP Full Exam - General 1994 Ears/Nose/Throat SP cavity/pharynx/larynx Overall: SP mucosa clear 04/18/2015 None SP Full Exam - General 1994 Constitutional SP appearance Development: well developed SP 04/18/2015 None SP Full Exam - General 1994 Constitutional SP appearance Development: appears stated SP 04/18/2015 None SP Full Exam - General 1994 Eyes pupils and SP Overall: pupils equal, round, reacti ve to SPlight and accomodation 04/18/2015 None SP Full Exam - General 1994 Eyes SP Overall: conjunctiva clear SP 04/18/2015 None SP Full Exam - General 1994 Eyes SP Overall: cornea clear SP None SP Full Exam - General 1994 Eyes SP Overall: eyelids normal SP 04/18/2015 None SP Full Exam - General 1994 Psychiatric SP Overall: oriented to person, place a nd SP 01/30/2015 None SP Full Exam - General 1994 Neurologic deep SP reflexes Overall: deep tendon reflexes SP 01/30/2015 None SP Full Exam - General 1994 Neurologic cranial SP Overall: crainial nerves 2 - 12 antonia sly SP 01/30/2015 None SP Full Exam - General 1994 Integument SP of skin Overall: no rash, lesions SP 01/30/2015 None SP Full Exam - General 1994 Lymphatic neck SP Overall: anterior cervical chain jennifer ign SP 01/30/2015 None SP Full Exam - General 1994 Lymphatic neck SP Overall: posterior cervical chain be nign SP 01/30/2015 None SP Full Exam - General 1994 Abdomen abdominal SP Overall: no tenderness SP None SP Full Exam - General 1994 Abdomen abdominal SP Overall: normal bowel sounds SP 01/30/2015 None SP Full Exam - General 1994 Cardiovascular SP of heart Overall: regular rate SP 01/30/2015 None SP Full Exam - General 1994 Cardiovascular SP of heart Overall: normal heart sounds SP 01/30/2015 None SP Full Exam - General 1994 Cardiovascular SP of heart Overall: no murmurs SP 01/30/2015 None SP Full Exam - General 1994 Respiratory SP Overall: breath sounds clear bilater ally SP 01/30/2015 None SP Full Exam - General 1994 Respiratory SP effort/rhythm Overall: normal rate SP 01/30/2015 None SP Full Exam - General 1994 Respiratory SP effort/rhythm Overall: no retractions SP 01/30/2015 None SP Full Exam - General 1994 Ears/Nose/Throat SP exam Overall: tympanic membranes clear SP 01/30/2015 None SP Full Exam - General 1994 Ears/Nose/Throat SP exam Overall: external auditory canals SP 01/30/2015 None SP Full Exam - General 1994 Ears/Nose/Throat SP cavity/pharynx/larynx Overall: SP mucosa clear 01/30/2015 None SP Full Exam - General 1994 Ears/Nose/Throat SP cavity/pharynx/larynx Overall: no masses SP 01/30/2015 None SP Full Exam - General 1994 Ears/Nose/Throat SP cavity/pharynx/larynx Overall: oral SP clear 01/30/2015 None SP Full Exam - General 1994 Eyes SP Overall: conjunctiva clear SP 01/30/2015 None SP Full Exam - General 1994 Eyes SP Overall: eyelids normal SP 01/30/2015 None SP Full Exam - General 1994 Eyes SP Overall: cornea clear SP None SP Full Exam - General 1994 Eyes pupils and SP Overall: pupils equal, round, reacti ve to SPlight and accomodation 01/30/2015 None SP Full Exam - General 1994 Constitutional SP appearance Overall: well nourished SP 01/30/2015 None SP Full Exam - General 1994 Constitutional SP appearance Overall: well developed SP 01/30/2015 None SP Full Exam - General 1994 Constitutional SP appearance Overall: in no acute distress SP 01/30/2015 None SP Procedures Procedure Codes Date POS ADMIN PNEUMOCOCCAL V ACCINE SP SNOMED CT: 85090762 SPCPT-4: G0009 10/13/2017 SP Pneumococcal Polysac charide Vaccine, 23-Valent, Ad SP CPT-4: 51992 10/13/2017 SP ADMIN PNEUMOCOCCAL V ACCINE SP SNOMED CT: [id number] SPCPT-4: G0009 12/10/2016 SP PNEUMOCOCCAL VACC 13 NORY IM SP SNOM[address] CT: 97600543 SPCPT-4: 05410 12/10/2016 SP TRIAMCINOLONE ACET I [place] NOS SP CPT-4: J3301 05/14/2016 SP DRAIN/INJECT JOINT/B URSA SP CPT-4: 45287 05/14/2016 SP PPPS, SUBSEQ VISIT CPT- SP G0439 04/18/2015 SP Vital Signs Date Vital POS 02/22/2019 Blood Pressure 1: 138/70 Code: SP6 BMI: 28.3 Code: SP5 Heart Rate 1: 81 bpm SP Height: 5'4" SP SpO2: 95% SP Weight: 165 lbs SP 07/15/2018 Blood Pressure 1: 146/90 Code: SP6 BMI: 28.8 Code: SP5 Heart Rate 1: 80 bpm SP Height: 5'4" SP SpO2: 97% SP Weight: 168 lbs SP 06/14/2018 Blood Pressure 1: 140/62 Code: SP6 BMI: 29.2 Code: SP5 Heart Rate 1: 88 bpm SP Height: 5'4" SP SpO2: 91% SP Weight: 170 lbs SP 10/13/2017 Heigh t: 5'4" SP 04/09/2017 Blood Pressure 1: 128/72 Code: SP6 BMI: 30.0 Code: SP5 Heart Rate 1: 90 bpm SP Height: 5'4" SP SpO2: 96% SP Weight: 175 lbs SP 11/27/2016 Blood Pressure 1: 172/92 Code: SP6 BMI: 30.6 Code: SP5 Heart Rate 1: 85 bpm SP Height: 5'4" SP SpO2: 95% SP Temperature: 36.4 (C ) / 97.5 (F) SP Weight: 178 lbs SP 07/21/2016 Blood Pressure 1: 142/90 Code: SP6 BMI: 29.7 Code: SP5 Heart Rate 1: 92 bpm SP Height: 5'4" SP SpO2: 97% SP Weight: 173 lbs SP 06/20/2016 Blood Pressure 1: 120/74 Code: SP6 BMI: 29.5 Code: SP5 Heart Rate 1: 83 bpm SP Height: 5'4" SP SpO2: 97% SP Weight: 172 lbs SP 05/14/2016 Blood Pressure 1: 158/84 Code: SP6 Blood Pressure 1: SP Code: 8480-6 BMI: SP Code: 89584-1 Heart SP 1: 89 bpm Height: SP SpO2: 94% SP Weight: 176 lbs SP 04/23/2016 Blood Pressure 1: 150/86 Code: SP6 BMI: 29.9 Code: SP5 Heart Rate 1: 72 bpm SP Height: 5'4" SP SpO2: 98% SP Weight: 174 lbs SP 05/14/2015 Blood Pressure 1: 132/80 Code: SP6 BMI: 28.8 Code: SP5 Heart Rate 1: 88 bpm SP Height: 5'4" SP Weight: 168 lbs SP 04/18/2015 Blood Pressure 1: 140/80 Code: SP6 BMI: 28.2 Code: SP5 Heart Rate 1: 78 bpm SP Height: 5'4" SP Respiratory Rate: 20 bpm SP Weight: 164 lbs SP 01/30/2015 Blood Pressure 1: 134/78 Code: SP6 BMI: 28.8 Code: SP5 Heart Rate 1: 70 bpm SP Height: 5'4" SP Weight: 168 lbs SP Functional Status No Functional Status data History of Present Illness Symptom Name Status Resu lt POS Effective Date Notes POS Quality chronic SP None SP Quality primary hypert ension SP 02/22/2019 None SP Onset and Resolution o ngoing SP 02/22/2019 None SP Onset of Symptom durin g adulthood SP 02/22/2019 None SP Blood Pressure Values patient checking SP pressure at home - did not bring in readings 02/22/2019 SP --Checks occasionally SP Severity not consisten tly severe symptoms, SP symptoms fluctuate from no symptoms to anxiety and headaches 02/22/2019 None SP Alleviating Factors me dication SP 02/22/2019 None SP Exacerbating Factors s tress SP 02/22/2019 None SP Pertinent Findings Den ies dizziness SP 02/22/2019 None SP Pertinent Findings Den ies dyspnea SP 02/22/2019 None SP Pertinent Findings Den ies edema SP 02/22/2019 None SP Onset and Resolution o ngoing SP 02/22/2019 None SP Significant Medical Conditions fibromyalgia SP 02/22/2019 None SP Alleviating Factors me dication SP 02/22/2019 (cymbalta) SP Quality intermittent SP None SP Location diffusely SP None SP hypertension Quality chr onic SP 07/15/2018 None SP hypertension Onset and Resolution ongoing SP 07/15/2018 None SP hypertension Onset of Symptom during SP 07/15/2018 None SP hypertension Blood Pressure Values patient SP blood pressure at home - did not bring in readings SP --Usually 140's/80's at home SP hypertension Severity no t consistently SP symptoms, the symptoms fluctuate from no symptoms to anxiety and headaches 07/15/2018 None SP hypertension Exacerbating Factors stress SP 07/15/2018 None SP hypertension Pertinent Findings Denies SP 07/15/2018 None SP hypertension Pertinent Findings Denies SP 07/15/2018 None SP hypertension Pertinent Findings Denies edema SP 07/15/2018 None SP hypertension Quality [place] hypertension SP 07/15/2018 None SP hypertension Alleviating Factors medication SP 07/15/2018 None SP myalgias Significant Medical Conditions SP 07/15/2018 None SP myalgias Quality improvi ng SP 07/15/2018 None SP myalgias Onset and Resolution ongoing SP 07/15/2018 None SP myalgias Alleviating Factors medication SP 07/15/2018 (cymbalta) SP myalgias Frequency of Episodes decreasing SP 07/15/2018 None SP hypertension Quality chr onic SP 06/14/2018 None SP hypertension Onset and Resolution ongoing SP 06/14/2018 None SP muscle weakness Location diffusely SP 06/14/2018 None SP muscle weakness Quality constant SP 06/14/2018 None SP muscle weakness Onset and Resolution gradual SPin onset 06/14/2018 None SP muscle weakness Onset of Symptom _ years ago SP 06/14/2018 None SP hypertension Onset of Symptom during SP 06/14/2018 None SP hypertension Blood Pressure Values patient SP blood pressure at home - did not bring in readings SP None SP hypertension Severity no t consistently SP symptoms, the symptoms fluctuate from no symptoms to anxiety and headaches 06/14/2018 None SP hypertension Triggers no known associated SP 06/14/2018 None SP hypertension Exacerbating Factors stress SP 06/14/2018 None SP hypertension Pertinent Findings Denies SP 06/14/2018 None SP hypertension Pertinent Findings Denies SP 06/14/2018 None SP hypertension Pertinent Findings decreased SP 06/14/2018 None SP hypertension Pertinent Findings Denies SP 06/14/2018 None SP hypertension Pertinent Findings Denies SP 06/14/2018 None SP hypertension Pertinent Findings Denies edema SP 06/14/2018 None SP hypertension Quality chr onic SP 04/09/2017 None SP hypertension Quality [place] hypertension SP 04/09/2017 None SP hypertension Onset of Symptom during SP 04/09/2017 None SP hypertension Onset and Resolution ongoing SP 04/09/2017 None SP hypertension Pertinent Findings Denies SP energy 04/09/2017 None SP hypertension Pertinent Findings Denies SP 04/09/2017 None SP hypertension Pertinent Findings Denies SP 04/09/2017 None SP hypertension Pertinent Findings Denies edema SP 04/09/2017 None SP hypertension Blood Pressure Values patient SP blood pressure at home - did not bring in readings SP None SP hypertension Severity no t consistently SP symptoms, the symptoms fluctuate from no symptoms to anxiety and headaches 04/09/2017 None SP hypertension Frequency of Episodes SP 04/09/2017 None SP sinusitis Location diffu sely SP 11/27/2016 None SP sinusitis Location in th e bilateral frontal SP 11/27/2016 None SP sinusitis Quality bloody SP None SP sinusitis Quality interm ittent SP 11/27/2016 None SP sinusitis Onset and Resolution sudden in SP 11/27/2016 None SP sinusitis Onset of Symptom 1 months ago SP 11/27/2016 None SP sinusitis Severity moder ate SP 11/27/2016 None SP sinusitis Triggers no kn own associated SP 11/27/2016 None SP sinusitis Pertinent Findings Denies cough SP 11/27/2016 None SP sinusitis Pertinent Findings Denies daytime SP 11/27/2016 None SP sinusitis Pertinent Findings facial pain SP 11/27/2016 None SP sinusitis Pertinent Findings Denies fever SP 11/27/2016 None SP sinusitis Pertinent Findings Denies SP cough 11/27/2016 None SP sinusitis Significant Medications nasal SP 11/27/2016 flonase, saline, rinocort SP dyspnea Quality chest ti ghtness SP 07/21/2016 None SP dyspnea Quality stable SP None SP dyspnea Onset and Resolution ongoing SP 07/21/2016 None SP dyspnea Onset of Symptom _ months ago SP 07/21/2016 None SP dyspnea Pertinent Findings cough SP 07/21/2016 None SP dyspnea Pertinent Findings increased work of SPbreathing 07/21/2016 None SP dyspnea Pertinent Findings nasal congestion SP 07/21/2016 None SP dyspnea Limitation on Activities moderately SP activities 07/21/2016 None SP dyspnea Frequency of Episodes increasing SP 07/21/2016 sometimes feels short of breath in SP morning dyspnea Significant Medical Conditions SP disease 07/21/2016 recent pneumonia- SP in ER in [place] cough Location in the [place] ng SP 06/20/2016 None SP cough Quality constant SP None SP cough Quality hacking SP None SP cough Onset and Resolution sudden in onset SP 06/20/2016 None SP cough Onset of Symptom 3 weeks ago SP 06/20/2016 None SP cough Frequency of Episodes daily SP 06/20/2016 None SP cough Limitation on Activities does not SP activities 06/20/2016 None SP cough Triggers no known associated factors SP 06/20/2016 None SP thumb and hand pain Alleviating Factors ice SP 05/14/2016 None SP thumb and hand pain Exacerbating Factors SP 05/14/2016 None SP thumb and hand pain Exacerbating Factors SP piano 05/14/2016 None SP thumb and hand pain Limitation on Ac tivities SP moderately limits activities 05/14/2016 SP thumb and hand pain Location in the left SP 05/14/2016 None SP thumb and hand pain Severity moderate SP 05/14/2016 None SP thumb and hand pain Significant Medication s SP 05/14/2016 None SP thumb and hand pain Pertinent Findings SP range of motion 05/14/2016 None SP thumb and hand pain Pertinent Findings pain SP movement 05/14/2016 None SP thumb and hand pain Pertinent Findings SP 05/14/2016 None SP thumb and hand pain Location around the left SPthumb 04/23/2016 None SP skin lesion Onset and Resolution sudden in SP 05/14/2015 None SP skin lesion Location lef t lower leg SP 05/14/2015 None SP skin lesion Pertinent Findings Denies fever SP 05/14/2015 None SP skin lesion Severity mild SP None SP cigarette smoking Prior Attempts cutting SP 01/30/2015 None SP cigarette smoking Onset of Symptom during SP 01/30/2015 None SP cigarette smoking Amount of Exposure less SP 1/2 pack per month 01/30/2015 None SP cigarette smoking Triggers no known SP factors 01/30/2015 None SP cigarette smoking Quality chronic SP 01/30/2015 None SP cigarette smoking Onset and Resolution in SP process of stopping 01/30/2015 doesn't SP every day but wants to quit completely menopausal symptoms Limitation on Ac tivities SP does not limit activities 01/30/2015 None SP menopausal symptoms Frequency of Episodes SP 01/30/2015 None SP menopausal symptoms Triggers no known SP factors 01/30/2015 None SP menopausal symptoms Alleviating Factors SP 01/30/2015 None SP menopausal symptoms Quality chronic SP 01/30/2015 post menopausal-on vivell e dot-only SP is vaginal dryness/pain with intercourse menopausal symptoms Pertinent Findings SP depressed mood 01/30/2015 None SP menopausal symptoms Pertinent Findings SP nausea 01/30/2015 None SP menopausal symptoms Pertinent Findings SP urinary urgency 01/30/2015 None SP Advance Directives No Advance Directive data Encounters Encounter Performer Loca tion POS Codes Date POS [phone]) [phone] EST. P ATIENT, LEVEL III SPDiagnosis: Essential (primary) hypertension[ICD10: I10] Diagnosis: Primary generalized (osteo)arthritis[ICD10: M15.0] Naheed Wang MD, [facility] SP CPT-4: 58113 02/22/2019 SP [phone]) [id number] EST. P ATIENT, LEVEL III SPDiagnosis: Essential (primary) hypertension[ICD10: I10] Diagnosis: Fibromyalgia[ICD10: M79.7] Diagnosis: Primary generalized (osteo)arthritis[ICD10: M15.0] Naheed Wang MD, [facility] CPT-4: 03527 07/15/2018 SP [phone]) [id number] EST. P ATIENT, LEVEL IV SPDiagnosis: Essential (primary) hypertension[ICD10: I10] Diagnosis: Fibromyalgia[ICD10: M79.7] Diagnosis: Primary generalized (osteo)arthritis[ICD10: M15.0] Naheed Wang MD, [facility] CPT-4: 97459 06/14/2018 SP [phone]) [id number] EST. P ATIENT, LEVEL IV SPDiagnosis: Encounter for general adult medical examination with abnormal findings[ICD10: Z00.01] Diagnosis: Essential (primary) hypertension[ICD10: I10] Diagnosis: Nonscarring hair loss, unspecified[ICD10: L65.9] Naheed Wang MD, [facility] CPT-4: 40907 04/09/2017 SP [id number]) [phone] EST. P ATIENT, LEVEL III SPDiagnosis: Essential (primary) hypertension[ICD10: I10] Diagnosis: Acute recurrent maxillary sinusitis[ICD10: J01.01] [facility] CPT-4: 98409 11/27/2016 SP [phone]) [phone] EST. P ATIENT, LEVEL IV SPDiagnosis: Dyspnea, unspecified[ICD10: R06.00] Diagnosis: Snoring[ICD10: R06.83] Diagnosis: Cough[ICD10: R05] Diagnosis: Personal history of nicotine dependence[ICD10: Z87.891] Diagnosis: Hypersomnia, unspecified[ICD10: G47.10] Naheed Wang MD, [facility] SP CPT-4: 77573 07/21/2016 SP [phone]) [phone] EST. P ATIENT, LEVEL III SPDiagnosis: Cough[ICD10: R05] Diagnosis: Other effects of high altitude, initial encounter[ICD10: T70.29XA] Naheed LEON MD, [facility] CPT-4: 87109 06/20/2016 SP [phone]) [phone] EST. P ATIENT, LEVEL III SPDiagnosis: Pain in left wrist[ICD10: M25.532] Diagnosis: Pain in left finger(s)[ICD10: M79.645] Diagnosis: Primary osteoarthritis, left hand[ICD10: M19.042] Jasmin Wang MD, [facility] CPT-4: 34665 05/14/2016 [place] [id number] EST. PATIENT, LEVEL III SPDiagnosis: Pain in left wrist[ICD10: M25.532] Diagnosis: Pain in left finger(s)[ICD10: M79.645] Clau Wang MD, [facility] SP4: 30651 04/23/2016 SP [id number]) [phone] EST. P ATIENT, LEVEL II SPDiagnosis: INSECT BITE NEC-INFECTED[ICD9: 919.5] Nati Wang MD, [facility] SP4: 48068 05/14/2015 SP ([id number]) OFFICE VISI T, [facility] - LEVEL 3 SPDiagnosis: Tobacco use[ICD9: 305.1] Diagnosis: Vaginal dryness, menopausal[ICD9: 627.2] Diagnosis: ALLERGIC RHINITIS[ICD9: 477.9] CAROLYN Wang MD, [facility] CPT-4: SP 01/30/2015 SP Plan of Care Planned Activity Notes C odes POS Status Date POS Patient Education: Patient Medication Summary SP Completed 03/15/2019 SP Patient Education: Patient Medication Summary SP Completed 03/02/2019 SP Care Plan: SCREENINGMAMMOGRAPHYDIGITAL SP : [id number] Pending 03/02/2019 SP Visit Plan: Hypertension - well con trolled - continue with SP medications, continue with no added salt diet. Pt has been encouraged to exercise daily. The pt has been advised to call the office if there are any acute concerns about change in blood pressure readings at home. Arthritis- occasionally uncontrolled symptoms- recommend pt to take antiinflammatory as directed for pain control. Use tylenol for break through pain symptoms. 02/22/2019 SP Appointment: [facility]tel[phone] [phone] (30 min) Complex SP 02/22/2019 SP Patient Education: Patient Medication Summary SP Completed 02/22/2019 SP Visit Plan: Hypertension - uncontro lled - the patient's SP have been modified as documented in the visit note. The patient has been counseled to cut back on salt in diet for a no added salt diet, low fat diet, start an exercise program with low weight bearing exercises and higher aerobic activity for heart health. The patient is to check blood pressure readings as an outpatient and either fax, call, or email the readings to the office next week for practitioner to review. The pt is to call for acute concerns. Fibromyalgia - improved with cymbalta-no changes today 07/15/2018 SP Appointment: Naheed Smith SPWPtel: [phone] [phone] (15 min) Moderate SP 07/15/2018 SP Patient Education: Patient Medication Summary SP Completed 07/15/2018 SP Visit Plan: Hypertension - well con trolled -stop HCTZ-monitor SPblood pressure and call if consistently 140/90 or higher and we will either restart HCTZ or start a different medication -continue with no added salt diet. Pt has been encouraged to exercise daily. The pt has been advised to call the office if there are any acute concerns about change in blood pressure readings at home. OA-uses tramadol for breakthrough pain Myalgias -fatigue -check labs - start cymbalta for chronic musculoskeletal pain -fibromylagia-follow up in 1 month, sooner if needed. Patient verbalized understanding of plan. 06/14/2018 SP Visit Plan: Hypertension - well con trolled -stop HCTZ-monitor SPblood pressure and call if consistently 140/90 or higher and we will either restart HCTZ or start a different medication -continue with no added salt diet. Pt has been encouraged to exercise daily. The pt has been advised to call the office if there are any acute concerns about change in blood pressure readings at home. OA-uses tramadol for breakthrough pain Myalgias -fatigue -check labs - start cymbalta for chronic musculoskeletal pain -fibromylagia-follow up in 1 month, sooner if needed. Patient verbalized understanding of plan. 06/14/2018 SP Appointment: Naheed Smith SPWPtel: [phone] [phone] (30 min) Complex SP 06/14/2018 SP Patient Education: Patient Medication Summary SP Completed 06/14/2018 SP Care Plan: COMPLETE CBC AUTOMATED LOINC : SP Pending 06/14/2018 SP Appointment: Injection SP 10/13/2017 SP Patient Education: Patient Medication Summary SP Completed 10/13/2017 SP Visit Plan: Well Adult - pt was cou nseled about diet, SP and encouraged to follow a heart healthy diet and increase activity level. The patient was instructed to RTC yearly for well adult exams and PRN for acute illnesses. The pt was also instructed to have yearly labs for check of cholesterol, thyroid, chem panel, CBC, and renal functioning. Hypertension - well controlled - continue with current medications, continue with no added salt diet. Pt has been encouraged to exercise daily. The pt has been advised to call the office if there are any acute concerns about change in blood pressure readings at home. Hair loss, dry skin, fatigue-check labs including TSH 04/09/2017 SP Appointment: Naheed Smith SPWPtel: [phone] [phone] [place] (30 min) Complex SP 04/09/2017 SP Patient Education: Patient Medication Summary SP Completed 04/09/2017 SP Patient Education: Obesity SP Completed 04/09/2017 SP Appointment: Injection SP 12/10/2016 SP Patient Education: Patient Medication Summary SP Completed 12/10/2016 SP Visit Plan: Hypertension - uncontro lled - the patient's SP have been modified as documented in the visit note. The patient has been counseled to cut back on salt in diet for a no added salt diet, low fat diet, start an exercise program with low weight bearing exercises and higher aerobic activity for heart health. The patient is to check blood pressure readings as an outpatient and either fax, call, or email the readings to the office next week for practitioner to review. The pt is to call for acute concerns. Sinusitis - Pt has acute infection - pain in face, maxillary region, Pt informed to use decong estant, RX given to patient, sinus rinses also recommended. Call if symptoms do not show improvement. 11/27/2016 SP Appointment: Naheed Smith SPWPtel: [address] [place], [place] [phone] (30 min) Complex SP 11/27/2016 SP Patient Education: Patient Medication Summary SP Completed 11/27/2016 SP Patient Education: Obesity SP Completed 11/27/2016 SP Visit Plan: Snoring-schedule sleep study Dypsnea-check PFT- SP to Dr Conrad Fatigue-check labs 07/21/2016 SP Visit Plan: Snoring-schedule sleep study Dypsnea-check PFT- SP to Dr Conrad Fatigue-check labs 07/21/2016 SP Referral: Jon Conrad Referral SP Completed 07/21/2016 SP Patient Education: Patient Medication Summary SP Completed 07/21/2016 SP Care Plan: Referral Order SNOMED-CT : SP Pending 07/21/2016 SP Visit Plan: Ysgek-[id number]-qruegu zpack Altitude sickness- SP also improving-less SOA, less headache-instructed patient and to rest over the week-increase fluids and call Thursday if symptoms are not improved. Patient verbalized understanding of plan. 06/20/2016 SP Patient Education: Patient Medication Summary SP Completed 06/20/2016 SP Care Plan: X-RAY EXAM OF WRIST LOINC : SP Pending 05/23/2016 SP Care Plan: X-RAY EXAM OF FINGER(S) LOINC : SP Pending 05/23/2016 SP Visit Plan: Joint Injection - Pt wa s given post - injection SP The pt has been advised to use anti-inflammatories post injection today, ice to the injected site, call if redness, warmth, or increased pain occurs at the site of injection. 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 Will send RX - pt is to notify clinic if symptoms do not improve or with any concerns. 04/23/2016 SP Appointment: Luis Naheed SPWPtel: [phone] [phone] (30 min) Complex SP 04/23/2016 SP Patient Education: Patient Medication Summary SP Completed 04/23/2016 SP Visit Plan: Insect bites- RX to pt' s pharmacy. Start SP while on antibiotic. Return to clinic or call for increased redness, swelling, warmth, discharge. 05/14/2015 SP Appointment: (30 min) SP 05/14/2015 SP Patient Education: Patient Medication Summary SP Completed 05/14/2015 SP Visit Plan: Medicare Exam - today w e discussed the patients SP history, immunizations, preventative exams/evaluations - colonoscopy, fecal occult blood testing, routine labs for renal function, glucose, cholesterol, osteoporosis evaluations, cardiovascular testing and cancer screenings. We have also discussed mental health and the signs/symptoms of depression. The patient was advised of home safety evaluations and the need to make sure that as the aging process continues, we need to be aware of different ways to make the home a safer place to reside. The patient has also been counseled that exercise is necessary - and of utmost importance as we age to help decrease fall risk and to maintain independence in the home. Today we discussed the need for the patient to create paperwork for Advanced directives as well as for the patient to provide this office with a copy of her DOPA paperwork for health care surrogate. Set up colonoscopy with Dr. Mcneil. 04/18/2015 SP Appointment: MCR - SP Wellness Visit 04/18/2015 SP Patient Education: Patient Medication Summary SP Completed 04/18/2015 SP Care Plan: COMPLETE CBC AUTOMATED LOINC : SP Ordered 04/18/2015 SP Visit Plan: Allergies - chronic - r ecommended pt to use SP medication as prescribed. Pt has been counseled as to the appropriate use of the medication. Pt to call if allergy symptoms are not controlled with the medication. If using nasal spray, instructions as follows: Nasal spray- use twice daily, one spray per nostril twice daily, after 30 minutes, rinse out nose with saline spray.. Use opposite hand per nostril to spray in the nasal steroid allergy spray. Tobacco abuse - chronic condition for this patient. Patient has been counseled about need to stop smoking due to the negative health affects. Pt has vocalized understanding and states she is ready to quit completely. Samples of chantix provided for patient and instructed on use. Post menopausal-decrease vivelle dot-samples of premarin cream provided for vaginal dryness and instructed on use. Patient verbalized understanding of plan. 01/30/2015 SP Appointment: New SP 01/30/2015 SP Patient Education: Patient Medication Summary SP Completed 01/30/2015 SP Patient Education: Smoking and Tobacco Addiction SP Completed 01/30/2015 SP Referral: Jon Conrad Referral SP Appointment Requested SP Instructions Comment POS REFER TO DR BOOKER MOYA sleep study . Snoring-schedule sleep study SP Dypsnea-check PFT-refer to Dr Conrad Fatigue-check labs REFER TO DR BOOKER MOYA sleep study . Snoring-schedule sleep study SP Dypsnea-check PFT-refer to Dr Conrad Fatigue-check labs . Hypertension - unc ontrolled - the patient's medications SP been modified as documented in the visit note. The patient has been counseled to cut back on salt in diet for a no added salt diet, low fat diet, start an exercise program with low weight bearing exercises and higher aerobic activity for heart health. The patient is to check blood pressure readings as an outpatient and either fax, call, or email the readings to the office next week for practitioner to review. The pt is to call for acute concerns. Fibromyalgia -improved with cymbalta-no changes today . Joint Injection - Pt was given post - injection SP The pt has been advised to use anti-inflammatories post injection today, ice to the injected site, call if redness, warmth, or increased pain occurs at the site of injection. If injections do not help - then need to consider referral to hand specialist for further eval/injections/possible surgery MAMMOGRAM SP . Hypertension - well controlled - deena nue with current medications, continue SP no added salt diet. Pt has been encouraged to exercise daily. The pt has been advised to call the office if there are any acute concerns about change in blood pressure readings at home. Arthritis- occasionally uncontrolled symptoms- recommend pt to take antiinflammatory as directed for pain control. Use tylenol for break through pain symptoms. . 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 Will send RX - pt is to notify clinic if symptoms do not improve or with any concerns. . Medicare Exam - to day we discussed the patients past SP immunizations, preventative exams/evaluations - colonoscopy, fecal occult blood testing, routine labs for renal function, glucose, cholesterol, osteoporosis evaluations, cardiovascular testing and cancer screenings. We have also discussed mental health and the signs/symptoms of depression. The patient was advised of home safety evaluations and the need to make sure that as the aging process continues, we need to be aware of different ways to make the home a safer place to reside. The patient has also been counseled that exercise is necessary - and of utmost importance as we age to help decrease fall risk and to maintain independence in the home. Today we discussed the need for the patient to create paperwork for Advanced directives as well as for the patient to provide this office with a copy of her DOPA paperwork for health care surrogate. Set up colonoscopy with Dr. Mcneil. CHECK LABS -if she n eeds new medication, call to lee SP leave her a message-she is going out of town but will check her messages next week. . Well Adult - pt was counseled about di et, exercise, and encouraged to follow a SPheart healthy diet and increase activity level. The patient was instructed to RTC yearly for well adult exams and PRN for acute illnesses. The pt was also instructed to have yearly labs for check of cholesterol, thyroid, chem panel, CBC, and renal functioning. Hypertension - well controlled - continue with current medications, continue with no added salt diet. Pt has been encouraged to exercise daily. The pt has been advised to call the office if there are any acute concerns about change in blood pressure readings at home. Hair loss, dry skin, fatigue-check labs including TSH monitor bp SPcheck chem panel in 1 month . Hypertension - uncontrolled - the linda ent's medications have been modified as SP in the visit note. The patient has been counseled to cut back on salt in diet for a no added salt diet, low fat diet, start an exercise program with low weight bearing exercises and higher aerobic activity for heart health. The patient is to check blood pressure readings as an outpatient and either fax, call, or email the readings to the office next week for practitioner to review. The pt is to call for acute concerns. Sinusitis - Pt has acute infection - pain in face, maxillary region, Pt informed to use decongestant, RX given to patient, sinus rinses also recommended. Call if symptoms do not show improvement. FASTING LABS SP STOP HCTZ MONITOR BLOOD PRESSURE AND PULSE MAMMOGRAM CYMBALTA 30MG DAILY -CALL IF SYMPTOMS UNCONTROLLD . Hypertension - well controlled -stop H CTZ-monitor blood pressure and call if SP 140/90 or higher and we will either restart HCTZ or start a different medication -continue with no added salt diet. Pt has been encouraged to exercise daily. The pt has been advised to call the office if there are any acute concerns about change in blood pressure readings at home. OA-uses tramadol for breakthrough pain Myalgias -fatigue -check labs -start cymbalta for chronic musculoskeletal pain -fibromylagia-follow up in 1 month, sooner if needed. Patient verbalized understanding of plan. FASTING LABS SP STOP HCTZ MONITOR BLOOD PRESSURE AND PULSE MAMMOGRAM CYMBALTA 30MG DAILY -CALL IF SYMPTOMS UNCONTROLLD . Hypertension - well controlled -stop H CTZ-monitor blood pressure and call if SP 140/90 or higher and we will either restart HCTZ or start a different medication -continue with no added salt diet. Pt has been encouraged to exercise daily. The pt has been advised to call the office if there are any acute concerns about change in blood pressure readings at home. OA-uses tramadol for breakthrough pain Myalgias -fatigue -check labs -start cymbalta for chronic musculoskeletal pain -fibromylagia-follow up in 1 month, sooner if needed. Patient verbalized understanding of plan. Plan to schedule ann ual medicare this summer SP Plan to do pneumonia vaccine and mammogram this summer Chantix starter pack . Allergies - chronic - recommended pt t o use allergy medication as prescribed. SPPt has been counseled as to the appropriate use of the medication. Pt to call if allergy symptoms are not controlled with the medication. If using nasal spray, instructions as follows: Nasal spray- use twice daily, one spray per nostril twice daily, after 30 minutes, rinse out nose with saline spray.. Use opposite hand per nostril to spray in the nasal steroid allergy spray. Tobacco abuse - chronic condition for this patient. Patient has been counseled about need to stop smoking due to the negative health affects. Pt has vocalized understanding and states she is ready to quit completely. Samples of chantix provided for patient and instructed on use. Post menopausal-decrease vivelle dot-samples of premarin cream provided for vaginal dryness and instructed on use. Patient verbalized understanding of plan. . Insect bites- RX t o pt's pharmacy. Start probiotic while SP antibiotic. Return to clinic or call for increased redness, swelling, warmth, discharge. . Kmjaa-iufmkmcjn-lj nish zpack SP Altitude sickness-symptoms also improving-less SOA, less headache-instructed patient and to rest over the week-increase fluids and call Thursday if symptoms are not improved. Patient verbalized understanding of plan.
--- OUTSIDE RECORDS SUMMARY | 2019-10-18 12:37 | XMS REPORT | CCD ---
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 Name Role Phone POS PP Unavailable SP CCM Unavailable SP Summary Purpose Interface Exchange Insurance Providers Payer name Policy type / Coverage type POS libertarian ID Effective Begin Date Effective POS Date [facility] Medicare Part B POS Unknown Unknown [...] Effective Dates POS Tobacco history SNOMED CT: 8346090 Quit less SPthan 5 years ago 04/19/2015 SP Marital status Unknown M arried SP 01/30/2015 SP Number of children Unknown 2 SP 01/30/2015 SP Number of years using tobacco Unknown 20 SP 01/30/[address]: 224541 Currently SP alcohol 01/30/2015 SP Frequency of drinks SNOMED CT: 852357964 7 SP per week 01/30/2015 SP Has [...] Instructions POS tramadol 50 mg tablet SP 034242 1-2 Tablet(s) PO Q4-6H as needed SP 06/13/2019 Inactive SP hydrochlorothiazide 25 mg tablet SP RxNorm: 856556 1 TABLET(S) PO DAILY SP 04/11/2019 09/07/2019 Ac tive SP SP Voltaren 1 % topical gel SP RxNorm: 828579 2 Gram(s) TOP QID SP 08/20/2019 Active SP tramadol 50 mg tablet SP 501709 1-2 Tablet(s) PO Q4-6H as needed SP No Stop Date Active SP hydrochlorothiazide 25 mg tablet SP RxNorm: 262366 1 TABLET(S) PO DAILY SP 01/10/2019 04/10/2019 In active SP SP lisinopril 10 mg tablet SP 990320 1 TABLET(S) PO DAILY 12/16/2018 SP 09/11/2019 Active SP Cymbalta 60 mg capsu le,delayed release SP RxNorm: 610410 1 CAPSULE(S) PO DAILY SP 12/16/2018 12/10/2019 Ac tive SP SP tramadol 50 mg tablet SP 824222 1-2 Tablet(s) PO Q4-6H as needed SP 04/24/2019 Inactive SP Vivelle-Dot 0.05 mg/ 24 hr transdermal patch SP RxNorm: 149001 1 PATCH TD BIW SP 09/17/2018 09/11/2019 Ac tive SP 1 patch twice weekly SP tramadol 50 mg tablet SP 748113 1-2 Tablet(s) PO Q4-6H as needed SP 11/28/2018 Inactive SP hydrochlorothiazide 25 mg tablet SP RxNorm: 004914 1 TABLET(S) PO DAILY SP 08/20/2018 01/09/2019 In active SP SP lisinopril 10 mg tablet SP 387797 1 Tablet(s) PO daily 07/15/2018 SP 12/15/2018 Inactive SP Cymbalta 60 mg capsu le,delayed release SP RxNorm: 956425 1 Capsule(s) PO daily SP 07/15/2018 12/15/2018 In active SP SP Cymbalta 60 mg capsu le,delayed release SP RxNorm: 797138 1 Capsule(s) PO daily SP 07/08/2018 07/14/2018 In active SP SP Cymbalta 30 mg capsu le,delayed release SP RxNorm: 726803 1 Capsule(s) PO daily SP 06/14/2018 07/07/2018 In active SP SP hydrochlorothiazide 25 mg tablet SP RxNorm: 292625 1 TABLET(S) PO DAILY SP 04/08/2018 06/13/2018 In active SP SP Vivelle-Dot 0.05 mg/ 24 hr transdermal patch SP RxNorm: 152598 1 PATCH TD BIW SP 11/19/2017 09/16/2018 In active SP 1 patch twice weekly SP hydrochlorothiazide 25 mg tablet SP RxNorm: 664260 1 TABLET(S) PO DAILY SP 10/29/2017 03/27/2018 In active SP SP hydrochlorothiazide 25 mg tablet SP RxNorm: 819319 1 Tablet(s) PO daily SP 05/18/2017 10/28/2017 In active SP SP vitamin Y24-xilky ac id 2.5 mg-0.8 mg oral sublingual tablet SP RxNorm: 774565 1000mcg SP PO daily 04/09/2017 No Stop Date SP Active SP Vivelle-Dot 0.05 mg/ 24 hr transdermal patch SP RxNorm: 365666 1 PATCH TD BIW SP 01/01/2017 11/18/2017 In active SP 1 patch twice weekly SP omeprazole 40 mg cap parul,delayed release SP RxNorm: 127710 1 Capsule(s) PO daily SP 11/27/2016 12/26/2016 In active SP SP Levaquin 500 mg tablet SP 959734 1 Tablet(s) PO daily 11/27/2016 SP 12/03/2016 Inactive SP hydrochlorothiazide 25 mg tablet SP RxNorm: 213953 1 Tablet(s) PO daily SP 11/27/2016 05/17/2017 In active SP SP Voltaren 1 % topical gel SP RxNorm: 887221 2 Gram(s) TOP QID SP 07/12/2016 Inactive SP prednisone 10 mg tablet SP 217125 Tablet(s) PO UD 04/23/2016 SP 04/08/2017 Inactive SP Vivelle-Dot 0.05 mg/ 24 hr transdermal patch SP RxNorm: 499334 1 PATCH TD BIW SP 01/28/2016 12/31/2016 In active SP 1 patch twice weekly SP Bactrim DS 800 mg-16 0 mg tablet SP RxNorm: 038002 1 Tablet(s) PO BID SP 05/20/2015 Inactive SP Culturelle 10 billio n cell capsule SP RxNorm: 964575 1 Capsule(s) PO daily SP 05/14/2015 06/12/2015 In active SP SP Vitamin D3 1,000 uni t tablet SP RxNorm: 825623 5 (5000) Tablet(s) PO daily SP 04/18/2015 04/08/2017 In active SP SP Premarin 0.625 mg/gr am vaginal cream SP RxNorm: 847851 1 Gram(s) VAG 2 times weekly SP 02/22/2015 02/21/2015 SP SP Chantix 1 mg tablet SP 042564 1 Tablet(s) PO BID 02/22/2015 SP 02/21/2015 Inactive SP Chantix 1 mg tablet SP 498262 1 Tablet(s) PO BID 02/22/2015 SP 04/22/2015 Inactive [[facility]AHIDA INGS SP NON-COVERED DRUGS -- BIN:[id number], PCN: [id number], Group: XXXXX, ID# [id number], Questions: . THIS IS NOT INSURANCE.] Premarin 0.625 mg/gr am vaginal cream SP RxNorm: 924753 1 Gram(s) VAG 2 times weekly SP 02/22/2015 09/19/2015 SP [SAVINGS FOR NON-COVERED DRUGS -- BIN:00 3585, PCN: ASPROD1, SPGroup: XXXXX, ID# [id number], Questions: . THIS IS NOT INSURANCE.] magnesium RxNorm: SP 900 PO daily 01/30/2015 SP Inactive [SAVINGS FOR NON-COVERED DR UGS SP BIN:242981, PCN: ASPROD1, Group: XXXXX, ID# [id number], Questions: . THIS IS NOT INSURANCE.] Vivelle-Dot 0.05 mg/ 24 hr transdermal patch SP RxNorm: 253333 2 TD QW SP 01/29/2015 Inactive SP Vivelle-Dot 0.05 mg/ 24 hr transdermal patch SP RxNorm: 092497 1 Patch TD BIW SP 01/30/2015 01/27/2016 In active SP 1 patch twice weekly SP Anoro Ellipta 62.5 m cg-25 mcg/actuation powder for SP RxNorm: 1154751 1 SP INH QAM No Start Date SP Active SP Pataday 0.2 % eye drops SP 9481997 Drop(s) OPH daily No Start Date SP Active SP Flonase Allergy Reli ef 50 mcg/actuation nasal SP RxNorm: 1 to each nare SPSpray NASAL daily No Start Date SP Active SP hydrochlorothiazide 25 mg tablet SP RxNorm: 274913 1 Tablet(s) PO daily SP No Start Date Active SP Zyrtec 10 mg capsule SP 7540417 1 Capsule(s) PO daily No Start SP [place] [address] oral No Start Date SP 04/08/2017 Inactive SP olive leaf extract oral SP oral No Start Date SP Inactive SP Singulair 10 mg tablet SP 745184 1 Tablet(s) PO daily No Start Date SP 02/21/2019 Inactive SP tramadol 50 mg tablet SP 373054 1-2 Tablet(s) PO Q4-6H as needed SP Start Date 09/06/2018 Inactive SP SP coenzyme Q10 200 mg capsule SP RxNorm: 951445 2 Capsule(s) PO daily No SPStart Date 02/21/2019 Inactive SP SP magnesium oral RxNorm: SP oral No Start Date SP Inactive SP Kadi oral RxNorm: SP oral No Start Date SP Inactive SP B Complex 1 tablet SP 1 Tablet(s) PO daily No Start Date SP 04/08/2017 Inactive SP Vitamin D3 1,000 uni t tablet SP RxNorm: 021288 5 (5000) Tablet(s) PO daily SP No Start Date 04/17/2015 Inactive SP SP vitamin B74-eylmp ac id oral SP RxNorm: oral No Start D ate SP 04/08/2017 Inactive SP Calcium RxNorm: SP 1800 PO daily No Start Date SP Inactive SP Kadi-D 12 Hour oral SP 600643 oral No Start Date SP 01/29/2015 Inactive [...] Item Code Result Date POS Comp Metabolic Xtm538 NA POS 140 mEq/L 06/25/2018 SP Comp Metabolic Buu087 K SP 3.5 mEq/L 06/25/2018 SP Comp Metabolic Jbd273 CL SP 101 mEq/L 06/25/2018 SP Comp Metabolic Omb206 CO2 SP 29.0 mEq/L 06/25/2018 SP Comp Metabolic Cgk729 AN ION GAP SP 14 06/25/2018 SP Comp Metabolic Vlk500 GL UCOSE SP 107 mg/dL 06/25/2018 SP Comp Metabolic Dpy239 Cr eat SP 0.6 mg/dL 06/25/2018 SP Comp Metabolic Qgr894 eG FR SP 103 ml/min/1.73m2 06/03 SP Comp Metabolic Sks006 BUN SP 10 mg/dL 06/25/2018 SP Comp Metabolic Vjf501 B/ C Ratio SP 16.4 Ratio 06/25/2018 SP Comp Metabolic Drj853 CA LCIUM SP 9.1 mg/dL 06/25/2018 SP Comp Metabolic Dvk471 AL K PHOS SP 65 U/L 06/25/2018 SP Comp Metabolic Agu376 T(SGOT) SP 17 U/L 06/25/2018 SP Comp Metabolic Bdx325 AL T(SGPT) SP 13 U/L 06/25/2018 SP Comp Metabolic Vbx187 BI LI T SP 0.5 mg/dL 06/25/2018 SP Comp Metabolic Mzn418 AL BUMIN SP 3.8 g/dL 06/25/2018 SP Comp Metabolic Cvk295 TP RO SP 6.6 g/dL 06/25/2018 SP Comp Metabolic Ffc851 GL OB SP 2.8 g/dL 06/25/2018 SP Comp Metabolic Scr380 A/ G Ratio SP 1.3 Ratio 06/25/2018 SP Comp Metabolic Ruc317 Os mo SP 279 mOsmo 06/25/2018 SP [...] pg 06/25/2018 SP Cbc With Differential Ord2 [place]% SP 10.6 % 06/25/2018 SP Cbc With [...] K/ul 06/25/2018 SP Cbc With Differential Ord2 [place] ABS# SP 0.7 K/ul 06/25/2018 SP Cbc [...] pg 04/09/2017 SP Cbc With Differential Ord2 [place]% SP 7.9 % 04/09/2017 SP Cbc With [...] K/ul 04/09/2017 SP Cbc With Differential Ord2 [place] ABS# SP 0.7 K/ul 04/09/2017 SP Cbc With Differential Ord2 Eos ABS# SP 0.1 K/ul 04/09/2017 SP Cbc With Differential Ord2 Baso ABS# SP 0.0 K/ul 04/09/2017 SP Tsh Ord6 hTSH II SP 1.04 uIU/mL 04/09/2017 SP Comp Metabolic Abr128 NA SP 140 mEq/L 04/09/2017 SP Comp Metabolic Oke147 K SP 3.7 mEq/L 04/09/2017 SP Comp Metabolic Xxo486 CL SP 104 mEq/L 04/09/2017 SP Comp Metabolic Rjq512 CO2 SP 28.0 mEq/L 04/09/2017 SP Comp Metabolic Cne859 AN ION GAP SP 12 04/09/2017 SP Comp Metabolic Bxv387 GL UCOSE SP 133 mg/dL 04/09/2017 SP Comp Metabolic Nuv788 Cr eat SP 0.6 mg/dL 04/09/2017 SP Comp Metabolic Hbo291 eG FR SP 114 ml/min/1.73m2 06/2017 SP Comp Metabolic Kkk196 BUN SP 13 mg/dL 04/09/2017 SP Comp Metabolic Ylp572 B/ C Ratio SP 23.2 Ratio 04/09/2017 SP Comp Metabolic Dqh492 CA LCIUM SP 9.2 mg/dL 04/09/2017 SP Comp Metabolic Atq460 AL K PHOS SP 53 U/L 04/09/2017 SP Comp Metabolic Fei579 T(SGOT) SP 21 U/L 04/09/2017 SP Comp Metabolic Yoe027 AL T(SGPT) SP 18 U/L 04/09/2017 SP Comp Metabolic Fci821 BI LI T SP 0.4 mg/dL 04/09/2017 SP Comp Metabolic Plk395 AL BUMIN SP 4.0 g/dL 04/09/2017 SP Comp Metabolic Znx507 TP RO SP 7.0 g/dL 04/09/2017 SP Comp Metabolic Ifd170 GL OB SP 3.0 g/dL 04/09/2017 SP Comp Metabolic Vup713 A/ G Ratio SP 1.4 Ratio 04/09/2017 SP Comp Metabolic Voy677 Os mo SP 281 mOsmo 04/09/2017 SP [...] coarse skin 06/14/2018 SP Endocrine hair loss 06/2017 SP Endocrine dry or coarse skin [...] Lymphatic neck SP Overall: anterior cervical chain jenniefr ign SP 07/21/2016 None SP Full Exam [...] ADMIN PNEUMOCOCCAL V ACCINE SP SNOMED CT: 66866550 SPCPT-4: G0009 10/13/2017 SP Pneumococcal Polysac charide Vaccine, 23-Valent, Ad SP CPT-4: 69110 10/13/2017 SP ADMIN PNEUMOCOCCAL V ACCINE SP SNOMED CT: 71348244 SPCPT-4: G0009 12/10/2016 SP PNEUMOCOCCAL VACC 13 NORY IM SP SNOMED CT: 50815331 SPCPT-4: 80002 12/10/2016 SP TRIAMCINOLONE ACET I [place] NOS SP CPT-4: J3301 05/14/2016 SP DRAIN/INJECT JOINT/B URSA SP CPT-4: 28444 05/14/2016 SP PPPS, SUBSEQ VISIT CPT- SP [...] 1: SP Code: 8480-6 BMI: SP Code: 51894-4 Heart SP 1: 89 bpm Height: SP [...] 07/21/2016 recent pneumonia- SP in ER in [place] cough Location in the [place] SP [...] Performer Loca tion POS Codes Date POS [phone]) 25454 EST. P ATIENT, LEVEL III SPDiagnosis: Essential (primary) hypertension[ICD10: I10] Diagnosis: Primary generalized (osteo)arthritis[ICD10: M15.0] Naheed Wang MD, [facility] CPT-4: 13469 02/22/2019 SP [id number]) 45930 EST. P ATIENT, LEVEL III SPDiagnosis: Essential (primary) hypertension[ICD10: I10] Diagnosis: Fibromyalgia[ICD10: M79.7] Diagnosis: Primary generalized (osteo)arthritis[ICD10: M15.0] Naheed Wang MD, [facility] CPT-4: 02462 07/15/2018 SP [phone]) 56519 EST. P ATIENT, LEVEL IV SPDiagnosis: Essential (primary) hypertension[ICD10: I10] Diagnosis: Fibromyalgia[ICD10: M79.7] Diagnosis: Primary generalized (osteo)arthritis[ICD10: M15.0] Naheed Wang MD, [facility] CPT-4: 08310 06/14/2018 SP [phone]) 87484 EST. P ATIENT, LEVEL IV SPDiagnosis: Encounter for general adult medical examination with abnormal findings[ICD10: Z00.01] Diagnosis: Essential (primary) hypertension[ICD10: I10] Diagnosis: Nonscarring hair loss, unspecified[ICD10: L65.9] Naheed Wang MD, [facility] CPT-4: 23983 04/09/2017 SP [phone]) 77920 EST. P ATIENT, LEVEL III SPDiagnosis: Essential (primary) hypertension[ICD10: I10] Diagnosis: Acute recurrent maxillary sinusitis[ICD10: J01.01] Naheed Wang MD, [facility] CPT-4: 76162 11/27/2016 SP (12133) 84131 EST. P ATIENT, LEVEL IV SPDiagnosis: Dyspnea, unspecified[ICD10: R06.00] Diagnosis: Snoring[ICD10: R06.83] Diagnosis: Cough[ICD10: R05] Diagnosis: Personal history of nicotine dependence[ICD10: Z87.891] Diagnosis: Hypersomnia, unspecified[ICD10: G47.10] Naheed Wang MD, [facility] SP CPT-4: 85293 07/21/2016 SP [phone]) 62443 EST. P ATIENT, LEVEL III SPDiagnosis: Cough[ICD10: R05] Diagnosis: Other effects of high altitude, initial encounter[ICD10: T70.29XA] Naheed LEON MD, [facility] CPT-4: 97771 06/20/2016 SP [phone]) 65817 EST. P ATIENT, LEVEL III SPDiagnosis: Pain in left wrist[ICD10: M25.532] Diagnosis: Pain in left finger(s)[ICD10: M79.645] Diagnosis: Primary osteoarthritis, left hand[ICD10: M19.042] Jasmin Wang MD, [facility] CPT-4: 95240 05/14/2016 SP 23035 EST. PATIENT, LEVEL III SPDiagnosis: Pain in left wrist[ICD10: M25.532] Diagnosis: Pain in left finger(s)[ICD10: M79.645] Clau Wang MD, [facility] SP4: 37935 04/23/2016 SP [phone]) 26720 EST. P ATIENT, LEVEL II SPDiagnosis: INSECT BITE NEC-INFECTED[ICD9: 919.5] Nati Wang MD, [facility] SP4: 89830 05/14/2015 SP ([id number]) OFFICE VISI T, NEW - LEVEL 3 SPDiagnosis: Tobacco use[ICD9: 305.1] Diagnosis: Vaginal dryness, menopausal[ICD9: 627.2] Diagnosis: ALLERGIC RHINITIS[ICD9: 477.9] CAROLYN Wang MD, [facility] CPT-4: SP 01/30/2015 SP Plan of Care Planned Activity Notes C odes POS Status Date POS Patient Education: Patient Medication Summary SP Completed 03/15/2019 SP Patient Education: Patient Medication Summary SP Completed 03/02/2019 SP Care Plan: SCREENINGMAMMOGRAPHYDIGITAL SP : [id number] Pending 03/02/2019 SP Visit Plan: Hypertension - [...] symptoms. 02/22/2019 SP Appointment: Naheed Smith SPWPtel: [facility] [phone] (30 min) Complex SP 02/22/2019 SP Patient [...] today 07/15/2018 SP Appointment: Naheed [facility]WPtel[facility] [phone] [phone] (15 min) Moderate SP 07/15/2018 SP Patient [...] 06/14/2018 SP App[facility]ment: [facility] [phone] [phone] (30 min) Complex SP 06/14/2018 SP Patient [...] TSH 04/09/2017 SP Appointment: Naheed Smith SPWPtel: [phone] [id number] (30 min) Complex SP 04/09/2017 SP Patient [...] improvement. 11/27/2016 SP Appointment: Naheed Smith SPWPtel: [phone] [facility] [id number] (30 min) Complex SP 11/27/2016 SP Patient [...] : SP Pending 07/21/2016 SP Visit Plan: Eptkr-weaaencrz-neqmbh zpack Altitude sickness- SP also improving-less SOA, [...] surgery 05/14/2016 SP Appointment: Jasmin Wang SPWPtel: [phone] [facility] [id number] [place] (15 min) Moderate SP 05/14/2016 SP [...] or with any concerns. 04/23/2016 SP Appointment: Naheed Smith SPWPtel: [phone] [facility] [id number] [place] (30 min) Complex SP 04/23/2016 SP Patient [...] colonoscopy with Dr. Mcneil. 04/18/2015 SP Appointment: [facility] - SP Wellness Visit 04/18/2015 SP Patient [...] verbalized understanding of plan. Plan to schedule cristóbal ua medicare this summer SP Plan to do [...] for increased redness, swelling, warmth, discharge. . Tkfye-ekvyaajbq-jv lauren zpack SP Altitude sickness-symptoms also improving-less SOA, less headache-instructed patient and to rest over the week-increase fluids and call Thursday if symptoms are not improved. Patient verbalized understanding of plan.
--- OUTSIDE RECORDS SUMMARY | 2019-10-18 12:38 | XMS REPORT | CCD ---
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 Name Role Phone POS PP Unavailable SP CCM Unavailable SP Summary Purpose Interface Exchange Insurance Providers Payer name Policy type / Coverage type POS republican ID Effective Begin Date Effective POS Date [facility] Medicare Part B POS Unknown Unknown SP [...] Effective Dates POS Tobacco history SNOMED CT: 1770169 Quit less SPthan 5 years ago 04/19/2015 SP Marital status Unknown M arried SP 01/30/2015 SP Number of children Unknown 2 SP 01/30/2015 SP Number of years using tobacco Unknown 20 SP 01/30/[address]: 389538 Currently SP alcohol 01/30/2015 SP Frequency of drinks SNOMED CT: 885494122 7 SP per week 01/30/2015 SP Has [...] Instructions POS tramadol 50 mg tablet SP 883649 1-2 Tablet(s) PO Q4-6H as needed SP No Stop Date Active SP hydrochlorothiazide 25 mg tablet SP RxNorm: 486276 1 TABLET(S) PO DAILY SP 04/11/2019 09/07/2019 Ac tive SP SP Voltaren 1 % topical gel SP RxNorm: 931624 2 Gram(s) TOP QID SP 08/20/2019 Active SP tramadol 50 mg tablet SP 182795 1-2 Tablet(s) PO Q4-6H as needed SP No Stop Date Active SP hydrochlorothiazide 25 mg tablet SP RxNorm: 970480 1 TABLET(S) PO DAILY SP 01/10/2019 04/10/2019 In active SP SP lisinopril 10 mg tablet SP 084879 1 TABLET(S) PO DAILY 12/16/2018 SP 09/11/2019 Active SP Cymbalta 60 mg capsu le,delayed release SP RxNorm: 619450 1 CAPSULE(S) PO DAILY SP 12/16/2018 12/10/2019 Ac tive SP SP tramadol 50 mg tablet SP 144090 1-2 Tablet(s) PO Q4-6H as needed SP 04/24/2019 Inactive SP Vivelle-Dot 0.05 mg/ 24 hr transdermal patch SP RxNorm: 787700 1 PATCH TD BIW SP 09/17/2018 09/11/2019 Ac tive SP 1 patch twice weekly SP tramadol 50 mg tablet SP 020152 1-2 Tablet(s) PO Q4-6H as needed SP 11/28/2018 Inactive SP hydrochlorothiazide 25 mg tablet SP RxNorm: 489043 1 TABLET(S) PO DAILY SP 08/20/2018 01/09/2019 In active SP SP lisinopril 10 mg tablet SP 567882 1 Tablet(s) PO daily 07/15/2018 SP 12/15/2018 Inactive SP Cymbalta 60 mg capsu le,delayed release SP RxNorm: 355823 1 Capsule(s) PO daily SP 07/15/2018 12/15/2018 In active SP SP Cymbalta 60 mg capsu le,delayed release SP RxNorm: 336256 1 Capsule(s) PO daily SP 07/08/2018 07/14/2018 In active SP SP Cymbalta 30 mg capsu le,delayed release SP RxNorm: 527380 1 Capsule(s) PO daily SP 06/14/2018 07/07/2018 In active SP SP hydrochlorothiazide 25 mg tablet SP RxNorm: 175401 1 TABLET(S) PO DAILY SP 04/08/2018 06/13/2018 In active SP SP Vivelle-Dot 0.05 mg/ 24 hr transdermal patch SP RxNorm: 342427 1 PATCH TD BIW SP 11/19/2017 09/16/2018 In active SP 1 patch twice weekly SP hydrochlorothiazide 25 mg tablet SP RxNorm: 045994 1 TABLET(S) PO DAILY SP 10/29/2017 03/27/2018 In active SP SP hydrochlorothiazide 25 mg tablet SP RxNorm: 146847 1 Tablet(s) PO daily SP 05/18/2017 10/28/2017 In active SP SP vitamin [id number]-[id number] ac id 2.5 mg-0.8 mg oral sublingual tablet SP RxNorm: 048037 1000mcg SP PO daily 04/09/2017 No Stop Date SP Active SP Vivelle-Dot 0.05 mg/ 24 hr transdermal patch SP RxNorm: 359419 1 PATCH TD BIW SP 01/01/2017 11/18/2017 In active SP 1 patch twice weekly SP omeprazole 40 mg cap parul,delayed release SP RxNorm: 641435 1 Capsule(s) PO daily SP 11/27/2016 12/26/2016 In active SP SP Levaquin 500 mg tablet SP 906874 1 Tablet(s) PO daily 11/27/2016 SP 12/03/2016 Inactive SP hydrochlorothiazide 25 mg tablet SP RxNorm: 516460 1 Tablet(s) PO daily SP 11/27/2016 05/17/2017 In active SP SP Voltaren 1 % topical gel SP RxNorm: 308845 2 Gram(s) TOP QID SP 07/12/2016 Inactive SP prednisone 10 mg tablet SP 082951 Tablet(s) PO UD 04/23/2016 SP 04/08/2017 Inactive SP Vivelle-Dot 0.05 mg/ 24 hr transdermal patch SP RxNorm: 233537 1 PATCH TD BIW SP 01/28/2016 12/31/2016 In active SP 1 patch twice weekly SP Bactrim DS 800 mg-16 0 mg tablet SP RxNorm: 169728 1 Tablet(s) PO BID SP 05/20/2015 Inactive SP Culturelle 10 billio n cell capsule SP RxNorm: 152648 1 Capsule(s) PO daily SP 05/14/2015 06/12/2015 In active SP SP Vitamin D3 1,000 uni t tablet SP RxNorm: 025406 5 (5000) Tablet(s) PO daily SP 04/18/2015 04/08/2017 In active SP SP Premarin 0.625 mg/gr am vaginal cream SP RxNorm: 408525 1 Gram(s) VAG 2 times weekly SP 02/22/2015 02/21/2015 SP SP Chantix 1 mg tablet SP 653223 1 Tablet(s) PO BID 02/22/2015 SP 02/21/2015 Inactive SP Chantix 1 mg tablet SP 798296 1 Tablet(s) PO BID 02/22/2015 SP 04/22/2015 Inactive [[facility]IDA INGS SP NON-COVERED DRUGS -- BIN:[id number], PCN: [id number], Group: XXXXX, ID# [id number], Questions: . THIS IS NOT INSURANCE.] Premarin 0.625 mg/gr am vaginal cream SP RxNorm: 220208 1 Gram(s) VAG 2 times weekly SP 02/22/2015 09/19/2015 SP [SAVINGS FOR NON-COVERED DRUGS -- BIN:00 3585, PCN: [id number], SPGroup: XXXXX, ID# [id number], Questions: . THIS IS NOT INSURANCE.] magnesium RxNorm: SP 900 PO daily 01/30/2015 SP Inactive [SAVINGS FOR NON-COVERED DR UGS SP BIN:[id number], PCN: ASPROD1, Group: XXXXX, ID# [id number], Questions: . THIS IS NOT INSURANCE.] Vivelle-Dot 0.05 mg/ 24 hr transdermal patch SP RxNorm: 464055 2 TD QW SP 01/29/2015 Inactive SP Vivelle-Dot 0.05 mg/ 24 hr transdermal patch SP RxNorm: 519037 1 Patch TD BIW SP 01/30/2015 01/27/2016 In active SP 1 patch twice weekly SP Anoro Ellipta 62.5 m cg-25 mcg/actuation powder for SP RxNorm: 4986405 1 SP INH QAM No Start Date SP Active SP Pataday 0.2 % eye drops SP 4439677 Drop(s) OPH daily No Start Date SP Active SP Flonase Allergy Reli ef 50 mcg/actuation nasal SP RxNorm: 1 to each nare SPSpray NASAL daily No Start Date SP Active SP hydrochlorothiazide 25 mg tablet SP RxNorm: 278121 1 Tablet(s) PO daily SP No Start Date Active SP Zyrtec 10 mg capsule SP 0445453 1 Capsule(s) PO daily No Start SP [place] [address] oral No Start Date SP 04/08/2017 Inactive SP olive leaf extract oral SP oral No Start Date SP Inactive SP Singulair 10 mg tablet SP 271873 1 Tablet(s) PO daily No Start Date SP 02/21/2019 Inactive SP tramadol 50 mg tablet SP 341099 1-2 Tablet(s) PO Q4-6H as needed SP Start Date 09/06/2018 Inactive SP SP coenzyme Q10 200 mg capsule SP RxNorm: 081783 2 Capsule(s) PO daily No SPStart Date 02/21/2019 Inactive SP SP magnesium oral RxNorm: SP oral No Start Date SP Inactive SP Kadi oral RxNorm: SP oral No Start Date SP Inactive SP B Complex 1 tablet SP 1 Tablet(s) PO daily No Start Date SP 04/08/2017 Inactive SP Vitamin D3 1,000 uni t tablet SP RxNorm: 344029 5 (5000) Tablet(s) PO daily SP No Start Date 04/17/2015 Inactive SP SP vitamin L71-cxqxn ac id oral SP RxNorm: oral No Start D ate SP 04/08/2017 Inactive SP Calcium RxNorm: SP 1800 PO daily No Start Date SP Inactive SP Kadi-D 12 Hour oral SP 710449 oral No Start Date SP 01/29/2015 Inactive [...] Item Code Result Date POS Comp Metabolic Buo401 NA POS 140 mEq/L 06/25/2018 SP Comp Metabolic Raa344 K SP 3.5 mEq/L 06/25/2018 SP Comp Metabolic Lfh111 CL SP 101 mEq/L 06/25/2018 SP Comp Metabolic Hya137 CO2 SP 29.0 mEq/L 06/25/2018 SP Comp Metabolic Drw134 AN ION GAP SP 14 06/25/2018 SP Comp Metabolic Yya770 GL UCOSE SP 107 mg/dL 06/25/2018 SP Comp Metabolic Abb350 Cr eat SP 0.6 mg/dL 06/25/2018 SP Comp Metabolic Grt803 eG FR SP 103 ml/min/1.73m2 06/03 SP Comp Metabolic Kpd608 BUN SP 10 mg/dL 06/25/2018 SP Comp Metabolic Vpb627 B/ C Ratio SP 16.4 Ratio 06/25/2018 SP Comp Metabolic Qqn713 CA LCIUM SP 9.1 mg/dL 06/25/2018 SP Comp Metabolic Lxq432 AL K PHOS SP 65 U/L 06/25/2018 SP Comp Metabolic Iqo382 T(SGOT) SP 17 U/L 06/25/2018 SP Comp Metabolic Ugl125 AL T(SGPT) SP 13 U/L 06/25/2018 SP Comp Metabolic Vlv547 BI LI T SP 0.5 mg/dL 06/25/2018 SP Comp Metabolic Fuy113 AL BUMIN SP 3.8 g/dL 06/25/2018 SP Comp Metabolic Vha095 TP RO SP 6.6 g/dL 06/25/2018 SP Comp Metabolic Mgs277 GL OB SP 2.8 g/dL 06/25/2018 SP Comp Metabolic Yae888 A/ G Ratio SP 1.3 Ratio 06/25/2018 SP Comp Metabolic Bsl307 Os mo SP 279 mOsmo 06/25/2018 SP [...] pg 06/25/2018 SP Cbc With Differential Ord2 [place]% SP 10.6 % 06/25/2018 SP Cbc With [...] K/ul 06/25/2018 SP Cbc With Differential Ord2 [place] ABS# SP 0.7 K/ul 06/25/2018 SP Cbc [...] pg 04/09/2017 SP Cbc With Differential Ord2 [place]% SP 7.9 % 04/09/2017 SP Cbc With [...] K/ul 04/09/2017 SP Cbc With Differential Ord2 [place] ABS# SP 0.7 K/ul 04/09/2017 SP Cbc With Differential Ord2 Eos ABS# SP 0.1 K/ul 04/09/2017 SP Cbc With Differential Ord2 Baso ABS# SP 0.0 K/ul 04/09/2017 SP Tsh Ord6 hTSH II SP 1.04 uIU/mL 04/09/2017 SP Comp Metabolic Yly791 NA SP 140 mEq/L 04/09/2017 SP Comp Metabolic Ezl020 K SP 3.7 mEq/L 04/09/2017 SP Comp Metabolic Jmd364 CL SP 104 mEq/L 04/09/2017 SP Comp Metabolic Zhd194 CO2 SP 28.0 mEq/L 04/09/2017 SP Comp Metabolic Eeq111 AN ION GAP SP 12 04/09/2017 SP Comp Metabolic Oma530 GL UCOSE SP 133 mg/dL 04/09/2017 SP Comp Metabolic Qjb414 Cr eat SP 0.6 mg/dL 04/09/2017 SP Comp Metabolic Ccc716 eG FR SP 114 ml/min/1.73m2 06/2017 SP Comp Metabolic Hwu291 BUN SP 13 mg/dL 04/09/2017 SP Comp Metabolic Txm715 B/ C Ratio SP 23.2 Ratio 04/09/2017 SP Comp Metabolic Mwa723 CA LCIUM SP 9.2 mg/dL 04/09/2017 SP Comp Metabolic Eib034 AL K PHOS SP 53 U/L 04/09/2017 SP Comp Metabolic Izt486 T(SGOT) SP 21 U/L 04/09/2017 SP Comp Metabolic Cuh197 AL T(SGPT) SP 18 U/L 04/09/2017 SP Comp Metabolic Kqo485 BI LI T SP 0.4 mg/dL 04/09/2017 SP Comp Metabolic Dyz211 AL BUMIN SP 4.0 g/dL 04/09/2017 SP Comp Metabolic Cax387 TP RO SP 7.0 g/dL 04/09/2017 SP Comp Metabolic Lhx018 GL OB SP 3.0 g/dL 04/09/2017 SP Comp Metabolic Zmi029 A/ G Ratio SP 1.4 Ratio 04/09/2017 SP Comp Metabolic Ufe922 Os mo SP 281 mOsmo 04/09/2017 SP [...] ADMIN PNEUMOCOCCAL V ACCINE SP SNOMED CT: 33670051 SPCPT-4: G0009 10/13/2017 SP Pneumococcal Polysac charide Vaccine, 23-Valent, Ad SP CPT-4: 05942 10/13/2017 SP ADMIN PNEUMOCOCCAL V ACCINE SP SNOMED CT: 91320511 SPCPT-4: G0009 12/10/2016 SP PNEUMOCOCCAL VACC 13 NORY IM SP SNOMED CT: 59686453 SPCPT-4: 13818 12/10/2016 SP TRIAMCINOLONE ACET I [place] NOS SP CPT-4: J3301 05/14/2016 SP DRAIN/INJECT JOINT/B URSA SP CPT-4: 57287 05/14/2016 SP PPPS, SUBSEQ VISIT CPT- SP [...] 1: SP Code: 8480-6 BMI: SP Code: 65861-4 Heart SP 1: 89 bpm Height: SP [...] 07/21/2016 recent pneumonia- SP in ER in [place] cough Location in the [place] SP [...] Performer Loca tion POS Codes Date POS [id number]) 25029 EST. P ATIENT, LEVEL III SPDiagnosis: Essential (primary) hypertension[ICD10: I10] Diagnosis: Primary generalized (osteo)arthritis[ICD10: M15.0] Naheed Wang MD, [facility] CPT-4: 74387 02/22/2019 SP ([id number]) 30512 EST. P ATIENT, LEVEL III SPDiagnosis: Essential (primary) hypertension[ICD10: I10] Diagnosis: Fibromyalgia[ICD10: M79.7] Diagnosis: Primary generalized (osteo)arthritis[ICD10: M15.0] Naheed Wang MD, [facility] CPT-4: 98735 07/15/2018 SP ([id number]) 89621 EST. P ATIENT, LEVEL IV SPDiagnosis: Essential (primary) hypertension[ICD10: I10] Diagnosis: Fibromyalgia[ICD10: M79.7] Diagnosis: Primary generalized (osteo)arthritis[ICD10: M15.0] Naheed Wang MD, [facility] CPT-4: 92908 06/14/2018 SP ([id number]) 21321 EST. P ATIENT, LEVEL IV SPDiagnosis: Encounter for general adult medical examination with abnormal findings[ICD10: Z00.01] Diagnosis: Essential (primary) hypertension[ICD10: I10] Diagnosis: Nonscarring hair loss, unspecified[ICD10: L65.9] Naheed Wang MD, [facility] CPT-4: 91273 04/09/2017 SP ([id number]) 01509 EST. P ATIENT, LEVEL III SPDiagnosis: Essential (primary) hypertension[ICD10: I10] Diagnosis: Acute recurrent maxillary sinusitis[ICD10: J01.01] Naheed Wang MD, [facility] CPT-4: 93177 11/27/2016 SP ([id number]) 98927 EST. P ATIENT, LEVEL IV SPDiagnosis: Dyspnea, unspecified[ICD10: R06.00] Diagnosis: Snoring[ICD10: R06.83] Diagnosis: Cough[ICD10: R05] Diagnosis: Personal history of nicotine dependence[ICD10: Z87.891] Diagnosis: Hypersomnia, unspecified[ICD10: G47.10] Naheed Wang MD, [facility] SP CPT-4: 84196 07/21/2016 SP ([phone]) 21386 EST. P ATIENT, LEVEL III SPDiagnosis: Cough[ICD10: R05] Diagnosis: Other effects of high altitude, initial encounter[ICD10: T70.29XA] Naheed LEON MD, [facility] CPT-4: 43513 06/20/2016 SP ([id number]) 00944 EST. P ATIENT, LEVEL III SPDiagnosis: Pain in left wrist[ICD10: M25.532] Diagnosis: Pain in left finger(s)[ICD10: M79.645] Diagnosis: Primary osteoarthritis, left hand[ICD10: M19.042] Jasmin Wang MD, [facility] CPT-4: 19582 05/14/2016 [place] [id number] EST. PATIENT, LEVEL III SPDiagnosis: Pain in left wrist[ICD10: M25.532] Diagnosis: Pain in left finger(s)[ICD10: M79.645] Clau Wang MD, [facility] SP4: 12380 04/23/2016 SP ([id number]) 57685 EST. P ATIENT, LEVEL II SPDiagnosis: INSECT BITE NEC-INFECTED[ICD9: 919.5] Nati Wang MD, [facility] SP4: 32112 05/14/2015 SP ([id number]) OFFICE VISI T, NEW - LEVEL 3 SPDiagnosis: Tobacco use[ICD9: 305.1] Diagnosis: Vaginal dryness, menopausal[ICD9: 627.2] Diagnosis: ALLERGIC RHINITIS[ICD9: 477.9] CAROLYN Wang MD, [facility] CPT-4: SP 01/30/2015 SP Plan of Care Planned Activity Notes C odes POS Status Date POS Patient Education: Patient Medication Summary SP Completed 03/15/2019 SP Patient Education: Patient Medication Summary SP Completed 03/02/2019 SP Care Plan: SCREENINGMAMMOGRAPHYDIGITAL SP : 62059-8 Pending 03/02/2019 SP Visit Plan: Hypertension - [...] 02/22/2019 SP [phone] [phone] ([facility] min[facility] Complex SP 02/22/2019 SP [...] 07/15/2018 SP [facility]: [facility] [phone] [phone] (15 min) Moderate SP 07/15/2018 SP Patient [...] plan. 06/14/2018 SP App[facility]ment: [facility] [phone] [phone] (30 min) Complex SP 06/14/2018 SP [...] TSH 04/09/2017 SP App[facility]: [facility] SP[facility]tel[facility] [phone] [id number] (30 min) Complex SP 04/09/2017 SP Patient [...] improvement. 11/27/2016 SP Appointment: Naheed Smith SPWPtel: [id number] (30 min) Complex SP 11/27/2016 SP Patient [...] : SP Pending 07/21/2016 SP Visit Plan: Atwhz-ycfhhaady-xdxqgz zpack Altitude sickness- SP also improving-less SOA, [...] surgery 05/14/2016 SP Appointment: [facility]min Wang SPWPtel: [phone] [facility] [id number] [place] (15 min) Moderate SP 05/14/2016 SP [...] concerns. 04/23/2016 SP Appointment: Naheed Smith SPWPtel: [phone] [facility] [id number] [place] (30 min) Complex SP 04/23/2016 SP [...] colonoscopy with Dr. Mcneil. 04/18/2015 SP Appointment: [facility] - SP Wellness Visit 04/18/2015 SP Patient [...] understanding of plan. Plan to schedule cristóbal ual medicare this summer SP Plan to [...] for increased redness, swelling, warmth, discharge. . Bjypc-caknhgbfo-jj lauren zpack SP Altitude sickness-symptoms also improving-less SOA, less headache-instructed patient and to rest over the week-increase fluids and call Thursday if symptoms are not improved. Patient verbalized understanding of plan.
--- OUTSIDE RECORDS SUMMARY | 2019-10-18 12:39 | XMS REPORT | CCD ---
Author Author Naheed Smith POS Organization [facility] SP Address [address] [place] [address] Phone SP Care Team Providers [employer] Name Role Phone POS PP Unavailable SP CCM Unavailable SP Summary Purpose Interface Exchange Insurance Providers Payer name Policy type / Coverage type POS republican ID Effective Begin Date Effective POS Date [facility] Medicare Part B POS Unknown Unknown [...] Effective Dates POS Tobacco history SNOMED CT: 2727963 Quit less SPthan 5 years ago 04/19/2015 SP Marital status Unknown M arried SP 01/30/2015 SP Number of children Unknown 2 SP 01/30/2015 SP Number of years using tobacco Unknown 20 SP 01/30/[address]: 181625 Currently SP alcohol 01/30/2015 SP Frequency of drinks SNOMED CT: 122708397 7 SP per week 01/30/2015 SP Has [...] Date Sta tus POS Fill Instructions POS hydrochlorothiazide 25 mg tablet SP RxNorm: 779034 1 TABLET(S) PO DAILY SP 04/11/2019 09/07/2019 Ac tive SP SP Voltaren 1 % topical gel SP RxNorm: 546417 2 Gram(s) TOP QID SP 08/20/2019 Active SP tramadol 50 mg tablet SP 822792 1-2 Tablet(s) PO Q4-6H as needed SP 04/24/2019 Inactive SP hydrochlorothiazide 25 mg tablet SP RxNorm: 381550 1 TABLET(S) PO DAILY SP 01/10/2019 04/10/2019 In active SP SP lisinopril 10 mg tablet SP 942307 1 TABLET(S) PO DAILY 12/16/2018 SP 09/11/2019 Active SP Cymbalta 60 mg capsu le,delayed release SP RxNorm: 218725 1 CAPSULE(S) PO DAILY SP 12/16/2018 12/10/2019 Ac tive SP SP tramadol 50 mg tablet SP 797630 1-2 Tablet(s) PO Q4-6H as needed SP No Stop Date Active SP Vivelle-Dot 0.05 mg/ 24 hr transdermal patch SP RxNorm: 045529 1 PATCH TD BIW SP 09/17/2018 09/11/2019 Ac tive SP 1 patch twice weekly SP tramadol 50 mg tablet SP 863765 1-2 Tablet(s) PO Q4-6H as needed SP 11/28/2018 Inactive SP hydrochlorothiazide 25 mg tablet SP RxNorm: 695978 1 TABLET(S) PO DAILY SP 08/20/2018 01/09/2019 In active SP SP lisinopril 10 mg tablet SP 280043 1 Tablet(s) PO daily 07/15/2018 SP 12/15/2018 Inactive SP Cymbalta 60 mg capsu le,delayed release SP RxNorm: 726140 1 Capsule(s) PO daily SP 07/15/2018 12/15/2018 In active SP SP Cymbalta 60 mg capsu le,delayed release SP RxNorm: 466127 1 Capsule(s) PO daily SP 07/08/2018 07/14/2018 In active SP SP Cymbalta 30 mg capsu le,delayed release SP RxNorm: 752361 1 Capsule(s) PO daily SP 06/14/2018 07/07/2018 In active SP SP hydrochlorothiazide 25 mg tablet SP RxNorm: 667487 1 TABLET(S) PO DAILY SP 04/08/2018 06/13/2018 In active SP SP Vivelle-Dot 0.05 mg/ 24 hr transdermal patch SP RxNorm: 954687 1 PATCH TD BIW SP 11/19/2017 09/16/2018 In active SP 1 patch twice weekly SP hydrochlorothiazide 25 mg tablet SP RxNorm: 743378 1 TABLET(S) PO DAILY SP 10/29/2017 03/27/2018 In active SP SP hydrochlorothiazide 25 mg tablet SP RxNorm: 062680 1 Tablet(s) PO daily SP 05/18/2017 10/28/2017 In active SP SP vitamin [id number] ac id 2.5 mg-0.8 mg oral sublingual tablet SP RxNorm: 333052 1000mcg SP PO daily 04/09/2017 No Stop Date SP Active SP Vivelle-Dot 0.05 mg/ 24 hr transdermal patch SP RxNorm: 898246 1 PATCH TD BIW SP 01/01/2017 11/18/2017 In active SP 1 patch twice weekly SP omeprazole 40 mg cap parul,delayed release SP RxNorm: 201528 1 Capsule(s) PO daily SP 11/27/2016 12/26/2016 In active SP SP Levaquin 500 mg tablet SP 200612 1 Tablet(s) PO daily 11/27/2016 SP 12/03/2016 Inactive SP hydrochlorothiazide 25 mg tablet SP RxNorm: 306617 1 Tablet(s) PO daily SP 11/27/2016 05/17/2017 In active SP SP Voltaren 1 % topical gel SP RxNorm: 504725 2 Gram(s) TOP QID SP 07/12/2016 Inactive SP prednisone 10 mg tablet SP 891373 Tablet(s) PO UD 04/23/2016 SP 04/08/2017 Inactive SP Vivelle-Dot 0.05 mg/ 24 hr transdermal patch SP RxNorm: 564124 1 PATCH TD BIW SP 01/28/2016 12/31/2016 In active SP 1 patch twice weekly SP Bactrim DS 800 mg-16 0 mg tablet SP RxNorm: 384493 1 Tablet(s) PO BID SP 05/20/2015 Inactive SP Culturelle 10 billio n cell capsule SP RxNorm: 289684 1 Capsule(s) PO daily SP 05/14/2015 06/12/2015 In active SP SP Vitamin D3 1,000 uni t tablet SP RxNorm: 395145 5 (5000) Tablet(s) PO daily SP 04/18/2015 04/08/2017 In active SP SP Premarin 0.625 mg/gr am vaginal cream SP RxNorm: 121184 1 Gram(s) VAG 2 times weekly SP 02/22/2015 02/21/2015 SP SP Chantix 1 mg tablet SP 452317 1 Tablet(s) PO BID 02/22/2015 SP 02/21/2015 Inactive SP Chantix 1 mg tablet SP 678014 1 Tablet(s) PO BID 02/22/2015 SP 04/22/2015 Inactive [[facility] INGS SP NON-COVERED DRUGS -- BIN:[id number], PCN: [id number], Group: XXXXX, ID# [id number], Questions: . THIS IS NOT INSURANCE.] Premarin 0.625 mg/gr am vaginal cream SP RxNorm: 999178 1 Gram(s) VAG 2 times weekly SP 02/22/2015 09/19/2015 SP [SAVINGS FOR NON-COVERED DRUGS -- BIN:[id number] 3585, PCN: [id number], SPGroup: XXXXX, ID# [id number], Questions: . THIS IS NOT INSURANCE.] magnesium RxNorm: SP 900 PO daily 01/30/2015 SP Inactive [SAVINGS FOR NON-COVERED DR UGS SP BIN:[id number], PCN: ASPROD1, Group: XXXXX, ID# [id number], Questions: . THIS IS NOT INSURANCE.] Vivelle-Dot 0.05 mg/ 24 hr transdermal patch SP RxNorm: 394908 2 TD QW SP 01/29/2015 Inactive SP Vivelle-Dot 0.05 mg/ 24 hr transdermal patch SP RxNorm: 081697 1 Patch TD BIW SP 01/30/2015 01/27/2016 In active SP 1 patch twice weekly SP Anoro Ellipta 62.5 m cg-25 mcg/actuation powder for SP RxNorm: 3873071 1 SP INH QAM No Start Date SP Active SP Pataday 0.2 % eye drops SP 7598176 Drop(s) OPH daily No Start Date SP Active SP Flonase Allergy Reli ef 50 mcg/actuation nasal SP RxNorm: 1 to each nare SPSpray NASAL daily No Start Date SP Active SP hydrochlorothiazide 25 mg tablet SP RxNorm: 404592 1 Tablet(s) PO daily SP No Start Date Active SP Zyrtec 10 mg capsule SP 6801383 1 Capsule(s) PO daily No Start SP [place] [address] oral No Start Date SP 04/08/2017 Inactive SP olive leaf extract oral SP oral No Start Date SP Inactive SP Singulair 10 mg tablet SP 257786 1 Tablet(s) PO daily No Start Date SP 02/21/2019 Inactive SP tramadol 50 mg tablet SP 701977 1-2 Tablet(s) PO Q4-6H as needed SP Start Date 09/06/2018 Inactive SP SP coenzyme Q10 200 mg capsule SP RxNorm: 761386 2 Capsule(s) PO daily No SPStart Date 02/21/2019 Inactive SP SP magnesium oral RxNorm: SP oral No Start Date SP Inactive SP Kadi oral RxNorm: SP oral No Start Date SP Inactive SP B Complex 1 tablet SP 1 Tablet(s) PO daily No Start Date SP 04/08/2017 Inactive SP Vitamin D3 1,000 uni t tablet SP RxNorm: 614131 5 (5000) Tablet(s) PO daily SP No Start Date 04/17/2015 Inactive SP SP vitamin I87-kohaq ac id oral SP RxNorm: oral No Start D ate SP 04/08/2017 Inactive SP Calcium RxNorm: SP 1800 PO daily No Start Date SP Inactive SP Kadi-D 12 Hour oral SP 182045 oral No Start Date SP 01/29/2015 Inactive [...] Item Code Result Date POS Comp Metabolic Odg733 NA POS 140 mEq/L 06/25/2018 SP Comp Metabolic Qvw473 K SP 3.5 mEq/L 06/25/2018 SP Comp Metabolic Fak410 CL SP 101 mEq/L 06/25/2018 SP Comp Metabolic Rcz729 CO2 SP 29.0 mEq/L 06/25/2018 SP Comp Metabolic Wqx039 AN ION GAP SP 14 06/25/2018 SP Comp Metabolic Ttn082 GL UCOSE SP 107 mg/dL 06/25/2018 SP Comp Metabolic Lnf388 Cr eat SP 0.6 mg/dL 06/25/2018 SP Comp Metabolic Dsv169 eG FR SP 103 ml/min/1.73m2 06/03 SP Comp Metabolic Smc386 BUN SP 10 mg/dL 06/25/2018 SP Comp Metabolic Vhj987 B/ C Ratio SP 16.4 Ratio 06/25/2018 SP Comp Metabolic Xwe413 CA LCIUM SP 9.1 mg/dL 06/25/2018 SP Comp Metabolic Zeg576 AL K PHOS SP 65 U/L 06/25/2018 SP Comp Metabolic Xvn420 T(SGOT) SP 17 U/L 06/25/2018 SP Comp Metabolic Yfk265 AL T(SGPT) SP 13 U/L 06/25/2018 SP Comp Metabolic Peh288 BI LI T SP 0.5 mg/dL 06/25/2018 SP Comp Metabolic Zpx210 AL BUMIN SP 3.8 g/dL 06/25/2018 SP Comp Metabolic Ege088 TP RO SP 6.6 g/dL 06/25/2018 SP Comp Metabolic Aay796 GL OB SP 2.8 g/dL 06/25/2018 SP Comp Metabolic Jiu807 A/ G Ratio SP 1.3 Ratio 06/25/2018 SP Comp Metabolic Idz336 Os mo SP 279 mOsmo 06/25/2018 SP [...] pg 06/25/2018 SP Cbc With Differential Ord2 [place]% SP 10.6 % 06/25/2018 SP Cbc With [...] K/ul 06/25/2018 SP Cbc With Differential Ord2 [place] ABS# SP 0.7 K/ul 06/25/2018 SP Cbc [...] pg 04/09/2017 SP Cbc With Differential Ord2 [place]% SP 7.9 % 04/09/2017 SP Cbc With [...] K/ul 04/09/2017 SP Cbc With Differential Ord2 [place] ABS# SP 0.7 K/ul 04/09/2017 SP Cbc With Differential Ord2 Eos ABS# SP 0.1 K/ul 04/09/2017 SP Cbc With Differential Ord2 Baso ABS# SP 0.0 K/ul 04/09/2017 SP Tsh Ord6 hTSH II SP 1.04 uIU/mL 04/09/2017 SP Comp Metabolic Zrm055 NA SP 140 mEq/L 04/09/2017 SP Comp Metabolic Wnc133 K SP 3.7 mEq/L 04/09/2017 SP Comp Metabolic Pmm592 CL SP 104 mEq/L 04/09/2017 SP Comp Metabolic Zgi102 CO2 SP 28.0 mEq/L 04/09/2017 SP Comp Metabolic Jzv240 AN ION GAP SP 12 04/09/2017 SP Comp Metabolic Zql904 GL UCOSE SP 133 mg/dL 04/09/2017 SP Comp Metabolic Ssd138 Cr eat SP 0.6 mg/dL 04/09/2017 SP Comp Metabolic Ovv359 eG FR SP 114 ml/min/1.73m2 06/2017 SP Comp Metabolic Yhe840 BUN SP 13 mg/dL 04/09/2017 SP Comp Metabolic Klo757 B/ C Ratio SP 23.2 Ratio 04/09/2017 SP Comp Metabolic Giz209 CA LCIUM SP 9.2 mg/dL 04/09/2017 SP Comp Metabolic Ngx024 AL K PHOS SP 53 U/L 04/09/2017 SP Comp Metabolic Cmv852 T(SGOT) SP 21 U/L 04/09/2017 SP Comp Metabolic Gun925 AL T(SGPT) SP 18 U/L 04/09/2017 SP Comp Metabolic Nhu829 BI LI T SP 0.4 mg/dL 04/09/2017 SP Comp Metabolic Whq437 AL BUMIN SP 4.0 g/dL 04/09/2017 SP Comp Metabolic Wam683 TP RO SP 7.0 g/dL 04/09/2017 SP Comp Metabolic Rza276 GL OB SP 3.0 g/dL 04/09/2017 SP Comp Metabolic Jth485 A/ G Ratio SP 1.4 Ratio 04/09/2017 SP Comp Metabolic Tkd607 Os mo SP 281 mOsmo 04/09/2017 SP [...] coarse skin 06/14/2018 SP Endocrine hair loss 06/06/2017 SP Endocrine dry or coarse skin 04/09/2017 [...] ADMIN PNEUMOCOCCAL V ACCINE SP SNOMED CT: 83527560 SPCPT-4: G0009 10/13/2017 SP Pneumococcal Polysac charide Vaccine, 23-Valent, Ad SP CPT-4: 79237 10/13/2017 SP ADMIN PNEUMOCOCCAL V ACCINE SP SNOMED CT: 15148262 SPCPT-4: G0009 12/10/2016 SP PNEUMOCOCCAL VACC 13 NORY IM SP SNOMED CT: 66965051 SPCPT-4: 87781 12/10/2016 SP TRIAMCINOLONE ACET I [place] NOS SP CPT-4: J3301 05/14/2016 SP DRAIN/INJECT JOINT/B URSA SP CPT-4: 14190 05/14/2016 SP PPPS, SUBSEQ VISIT CPT- SP [...] 1: SP Code: 8480-6 BMI: SP Code: 27713-2 Heart SP 1: 89 bpm Height: SP [...] 07/21/2016 recent pneumonia- SP in ER in [place] cough Location in the [place] SP [...] Performer Loca tion POS Codes Date POS ([id number]) 18694 EST. P ATIENT, LEVEL III SPDiagnosis: Essential (primary) hypertension[ICD10: I10] Diagnosis: Primary generalized (osteo)arthritis[ICD10: M15.0] Naheed Wang MD, [facility] CPT-4: 40821 02/22/2019 SP ([id number]) 48823 EST. P ATIENT, LEVEL III SPDiagnosis: Essential (primary) hypertension[ICD10: I10] Diagnosis: Fibromyalgia[ICD10: M79.7] Diagnosis: Primary generalized (osteo)arthritis[ICD10: M15.0] Naheed Wang MD, [facility] CPT-4: 70637 07/15/2018 SP ([id number]) 43014 EST. P ATIENT, LEVEL IV SPDiagnosis: Essential (primary) hypertension[ICD10: I10] Diagnosis: Fibromyalgia[ICD10: M79.7] Diagnosis: Primary generalized (osteo)arthritis[ICD10: M15.0] Naheed Wang MD, [facility] CPT-4: 55592 06/14/2018 SP ([id number]) 25751 EST. P ATIENT, LEVEL IV SPDiagnosis: Encounter for general adult medical examination with abnormal findings[ICD10: Z00.01] Diagnosis: Essential (primary) hypertension[ICD10: I10] Diagnosis: Nonscarring hair loss, unspecified[ICD10: L65.9] Naheed Wang MD, [facility] CPT-4: 36986 04/09/2017 SP ([id number]) 69241 EST. P ATIENT, LEVEL III SPDiagnosis: Essential (primary) hypertension[ICD10: I10] Diagnosis: Acute recurrent maxillary sinusitis[ICD10: J01.01] Naheed Wang MD, [facility] CPT-4: 89544 11/27/2016 SP ([id number]) 62221 EST. P ATIENT, LEVEL IV SPDiagnosis: Dyspnea, unspecified[ICD10: R06.00] Diagnosis: Snoring[ICD10: R06.83] Diagnosis: Cough[ICD10: R05] Diagnosis: Personal history of nicotine dependence[ICD10: Z87.891] Diagnosis: Hypersomnia, unspecified[ICD10: G47.10] [facility] SP CPT-4: 66553 07/21/2016 SP ([id number]) 35253 EST. P ATIENT, LEVEL III SPDiagnosis: Cough[ICD10: R05] Diagnosis: Other effects of high altitude, initial encounter[ICD10: T70.29XA] Naheed LEON MD, [facility] CPT-4: 96680 06/20/2016 SP ([id number]) 54790 EST. P ATIENT, LEVEL III SPDiagnosis: Pain in left wrist[ICD10: M25.532] Diagnosis: Pain in left finger(s)[ICD10: M79.645] Diagnosis: Primary osteoarthritis, left hand[ICD10: M19.042] Jasmin Wang MD, [facility] CPT-4: 45779 05/14/2016 [place] [id number] EST. PATIENT, LEVEL III SPDiagnosis: Pain in left wrist[ICD10: M25.532] Diagnosis: Pain in left finger(s)[ICD10: M79.645] Clau Wang MD, [facility] SP4: 73160 04/23/2016 SP ([id number]) 05802 EST. P ATIENT, LEVEL II SPDiagnosis: INSECT BITE NEC-INFECTED[ICD9: 919.5] Nati Wang MD, [facility] SP4: 77999 05/14/2015 SP ([id number]) OFFICE VISI T, [facility] - LEVEL 3 SPDiagnosis: Tobacco use[ICD9: 305.1] Diagnosis: Vaginal dryness, menopausal[ICD9: 627.2] Diagnosis: ALLERGIC RHINITIS[ICD9: 477.9] CAROLYN Wang MD, [facility] CPT-4: SP 01/30/2015 SP Plan of Care Planned Activity Notes C odes POS Status Date POS Patient Education: Patient Medication Summary SP Completed 03/15/2019 SP Patient Education: Patient Medication Summary SP Completed 03/02/2019 SP Care Plan: SCREENINGMAMMOGRAPHYDIGITAL SP : [id number] Pending 03/02/2019 SP Visit Plan: Hypertension - [...] 02/22/2019 SP Appointment: Naheed Smith SPWPtel: [phone] [facility] [id number] (30 min) Complex SP 02/22/2019 SP Patient [...] 07/15/2018 SP Appointment: Naheed Smith SPWPtel: [phone] [facility] [id number] (15 min) Moderate SP 07/15/2018 SP Patient [...] plan. 06/14/2018 SP Appointment: [phone] [phone] (30 min) Complex SP 06/14/2018 SP Patient [...] fatigue-check labs including TSH 04/09/2017 SP Appointment: Liu Smithie [facility]tel[phone] [phone] (30 min) Complex SP 04/09/2017 SP Patient [...] do not show improvement. 11/27/2016 SP Appointment: Luis [facility]heed SPWPtel[phone] [id number] [place] (30 min) Complex SP 11/27/2016 SP Patient [...] : SP Pending 07/21/2016 SP Visit Plan: Avefb-kwifdvkux-mluerm zpack Altitude sickness- SP also improving-less SOA, [...] surgery 05/14/2016 SP Appointment: [facility]tel[phone] [facility] [place] [place] (15 min) Moderate SP 05/14/2016 [...] concerns. 04/23/2016 SP Appointment: Naheed Smith SPWPtel: [phone] [facility] [id number] [place] (30 min) Complex SP 04/23/2016 SP [...] colonoscopy with Dr. Mcneil. 04/18/2015 SP Appointment: [facility] - SP Wellness Visit [...] understanding of plan. Plan to schedule [facility] this summer SP Plan to do [...] for increased redness, swelling, warmth, discharge. . Hfubo-incbzrbjo-tj lauren zpack SP Altitude sickness-symptoms also improving-less SOA, less headache-instructed patient and to rest over the week-increase fluids and call Thursday if symptoms are not improved. Patient verbalized understanding of plan.
--- OUTSIDE RECORDS SUMMARY | 2019-10-18 12:40 | XMS REPORT | CCD ---
Author Author Naheed Smith POS Organization [facility] SP Address [address] [place] [address] Phone SP Care Team Providers Care Management Expert Name Role Phone POS PP Unavailable SP CCM Unavailable SP Summary Purpose Interface Exchange Insurance Providers Payer name Policy type / Coverage type POS democrat ID Effective Begin Date Effective POS Date [facility] Medicare Part B POS Unknown [...] Effective Dates POS Tobacco history SNOMED CT: 3783813 Quit less SPthan 5 years ago 04/19/2015 SP Marital status Unknown M arried SP 01/30/2015 SP Number of children Unknown 2 SP 01/30/2015 SP Number of years using tobacco Unknown 20 SP 01/30/[address]: 897780 Currently SP alcohol 01/30/2015 SP Frequency of drinks SNOMED CT: 321824498 7 SP per week 01/30/2015 SP Has [...] POS hydrochlorothiazide 25 mg tablet SP RxNorm: 395291 1 TABLET(S) PO DAILY SP 04/11/2019 09/07/2019 Ac tive SP SP Voltaren 1 % topical gel SP RxNorm: 917568 2 Gram(s) TOP QID SP 08/20/2019 Active SP tramadol 50 mg tablet SP 048129 1-2 Tablet(s) PO Q4-6H as needed SP No Stop Date Active SP hydrochlorothiazide 25 mg tablet SP RxNorm: 287058 1 TABLET(S) PO DAILY SP 01/10/2019 04/10/2019 In active SP SP lisinopril 10 mg tablet SP 199901 1 TABLET(S) PO DAILY 12/16/2018 SP 09/11/2019 Active SP Cymbalta 60 mg capsu le,delayed release SP RxNorm: 406672 1 CAPSULE(S) PO DAILY SP 12/16/2018 12/10/2019 Ac tive SP SP tramadol 50 mg tablet SP 560677 1-2 Tablet(s) PO Q4-6H as needed SP No Stop Date Active SP Vivelle-Dot 0.05 mg/ 24 hr transdermal patch SP RxNorm: 144275 1 PATCH TD BIW SP 09/17/2018 09/11/2019 Ac tive SP 1 patch twice weekly SP tramadol 50 mg tablet SP 549941 1-2 Tablet(s) PO Q4-6H as needed SP 11/28/2018 Inactive SP hydrochlorothiazide 25 mg tablet SP RxNorm: 946634 1 TABLET(S) PO DAILY SP 08/20/2018 01/09/2019 In active SP SP lisinopril 10 mg tablet SP 911040 1 Tablet(s) PO daily 07/15/2018 SP 12/15/2018 Inactive SP Cymbalta 60 mg capsu le,delayed release SP RxNorm: 757793 1 Capsule(s) PO daily SP 07/15/2018 12/15/2018 In active SP SP Cymbalta 60 mg capsu le,delayed release SP RxNorm: 721964 1 Capsule(s) PO daily SP 07/08/2018 07/14/2018 In active SP SP Cymbalta 30 mg capsu le,delayed release SP RxNorm: 438497 1 Capsule(s) PO daily SP 06/14/2018 07/07/2018 In active SP SP hydrochlorothiazide 25 mg tablet SP RxNorm: 350513 1 TABLET(S) PO DAILY SP 04/08/2018 06/13/2018 In active SP SP Vivelle-Dot 0.05 mg/ 24 hr transdermal patch SP RxNorm: 262407 1 PATCH TD BIW SP 11/19/2017 09/16/2018 In active SP 1 patch twice weekly SP hydrochlorothiazide 25 mg tablet SP RxNorm: 629025 1 TABLET(S) PO DAILY SP 10/29/2017 03/27/2018 In active SP SP hydrochlorothiazide 25 mg tablet SP RxNorm: 978321 1 Tablet(s) PO daily SP 05/18/2017 10/28/2017 In active SP SP vitamin [id number] ac id 2.5 mg-0.8 mg oral sublingual tablet SP RxNorm: 647533 1000mcg SP PO daily 04/09/2017 No Stop Date SP Active SP Vivelle-Dot 0.05 mg/ 24 hr transdermal patch SP RxNorm: 107154 1 PATCH TD BIW SP 01/01/2017 11/18/2017 In active SP 1 patch twice weekly SP omeprazole 40 mg cap parul,delayed release SP RxNorm: 286057 1 Capsule(s) PO daily SP 11/27/2016 12/26/2016 In active SP SP Levaquin 500 mg tablet SP 892893 1 Tablet(s) PO daily 11/27/2016 SP 12/03/2016 Inactive SP hydrochlorothiazide 25 mg tablet SP RxNorm: 049163 1 Tablet(s) PO daily SP 11/27/2016 05/17/2017 In active SP SP Voltaren 1 % topical gel SP RxNorm: 625105 2 Gram(s) TOP QID SP 07/12/2016 Inactive SP prednisone 10 mg tablet SP 811472 Tablet(s) PO UD 04/23/2016 SP 04/08/2017 Inactive SP Vivelle-Dot 0.05 mg/ 24 hr transdermal patch SP RxNorm: 323127 1 PATCH TD BIW SP 01/28/2016 12/31/2016 In active SP 1 patch twice weekly SP Bactrim DS 800 mg-16 0 mg tablet SP RxNorm: 314981 1 Tablet(s) PO BID SP 05/20/2015 Inactive SP Culturelle 10 billio n cell capsule SP RxNorm: 369780 1 Capsule(s) PO daily SP 05/14/2015 06/12/2015 In active SP SP Vitamin D3 1,000 uni t tablet SP RxNorm: 302694 5 (5000) Tablet(s) PO daily SP 04/18/2015 04/08/2017 In active SP SP Premarin 0.625 mg/gr am vaginal cream SP RxNorm: 515534 1 Gram(s) VAG 2 times weekly SP 02/22/2015 02/21/2015 SP SP Chantix 1 mg tablet SP 702809 1 Tablet(s) PO BID 02/22/2015 SP 02/21/2015 Inactive SP Chantix 1 mg tablet SP 622205 1 Tablet(s) PO BID 02/22/2015 SP 04/22/2015 Inactive [[facility]IDA INGS SP NON-COVERED DRUGS -- BIN:[id number], PCN: [id number], Group: XXXXX, ID# [id number], Questions: . THIS IS NOT INSURANCE.] Premarin 0.625 mg/gr am vaginal cream SP RxNorm: 144497 1 Gram(s) VAG 2 times weekly SP 02/22/2015 09/19/2015 SP [SAVINGS FOR NON-COVERED DRUGS -- BIN:00 3585, PCN: ASPROD1, SPGroup: XXXXX, ID# [id number], Questions: . THIS IS NOT INSURANCE.] magnesium RxNorm: SP 900 PO daily 01/30/2015 SP Inactive [SAVINGS FOR NON-COVERED DR UGS SP BIN:755374, PCN: ASPROD1, Group: XXXXX, ID# [id number], Questions: . THIS IS NOT INSURANCE.] Vivelle-Dot 0.05 mg/ 24 hr transdermal patch SP RxNorm: 285220 2 TD QW SP 01/29/2015 Inactive SP Vivelle-Dot 0.05 mg/ 24 hr transdermal patch SP RxNorm: 118943 1 Patch TD BIW SP 01/30/2015 01/27/2016 In active SP 1 patch twice weekly SP Anoro Ellipta 62.5 m cg-25 mcg/actuation powder for SP RxNorm: 8637545 1 SP INH QAM No Start Date SP Active SP Pataday 0.2 % eye drops SP 1768269 Drop(s) OPH daily No Start Date SP Active SP Flonase Allergy Reli ef 50 mcg/actuation nasal SP RxNorm: 1 to each nare SPSpray NASAL daily No Start Date SP Active SP hydrochlorothiazide 25 mg tablet SP RxNorm: 684364 1 Tablet(s) PO daily SP No Start Date Active SP Zyrtec 10 mg capsule SP 4414789 1 Capsule(s) PO daily No Start SP [place] [address] oral No Start Date SP 04/08/2017 Inactive SP olive leaf extract oral SP oral No Start Date SP Inactive SP Singulair 10 mg tablet SP 933421 1 Tablet(s) PO daily No Start Date SP 02/21/2019 Inactive SP tramadol 50 mg tablet SP 175291 1-2 Tablet(s) PO Q4-6H as needed SP Start Date 09/06/2018 Inactive SP SP coenzyme Q10 200 mg capsule SP RxNorm: 745898 2 Capsule(s) PO daily No SPStart Date 02/21/2019 Inactive SP SP magnesium oral RxNorm: SP oral No Start Date SP Inactive SP Kadi oral RxNorm: SP oral No Start Date SP Inactive SP B Complex 1 tablet SP 1 Tablet(s) PO daily No Start Date SP 04/08/2017 Inactive SP Vitamin D3 1,000 uni t tablet SP RxNorm: 584855 5 (5000) Tablet(s) PO daily SP No Start Date 04/17/2015 Inactive SP SP vitamin U92-fodnj ac id oral SP RxNorm: oral No Start D ate SP 04/08/2017 Inactive SP Calcium RxNorm: SP 1800 PO daily No Start Date SP Inactive SP Kadi-D 12 Hour oral SP 933113 oral No Start Date SP 01/29/2015 Inactive [...] Item Code Result Date POS Comp Metabolic Eol549 NA POS 140 mEq/L 06/25/2018 SP Comp Metabolic Yul247 K SP 3.5 mEq/L 06/25/2018 SP Comp Metabolic For787 CL SP 101 mEq/L 06/25/2018 SP Comp Metabolic Rpi409 CO2 SP 29.0 mEq/L 06/25/2018 SP Comp Metabolic Fpb404 AN ION GAP SP 14 06/25/2018 SP Comp Metabolic Bks969 GL UCOSE SP 107 mg/dL 06/25/2018 SP Comp Metabolic Dqe014 Cr eat SP 0.6 mg/dL 06/25/2018 SP Comp Metabolic Cad406 eG FR SP 103 ml/min/1.73m2 06/03 SP Comp Metabolic Pat642 BUN SP 10 mg/dL 06/25/2018 SP Comp Metabolic Ezo271 B/ C Ratio SP 16.4 Ratio 06/25/2018 SP Comp Metabolic Pcu461 CA LCIUM SP 9.1 mg/dL 06/25/2018 SP Comp Metabolic Dme984 AL K PHOS SP 65 U/L 06/25/2018 SP Comp Metabolic Bac712 T(SGOT) SP 17 U/L 06/25/2018 SP Comp Metabolic Jzc860 AL T(SGPT) SP 13 U/L 06/25/2018 SP Comp Metabolic Zgv049 BI LI T SP 0.5 mg/dL 06/25/2018 SP Comp Metabolic Uxp919 AL BUMIN SP 3.8 g/dL 06/25/2018 SP Comp Metabolic Kmd189 TP RO SP 6.6 g/dL 06/25/2018 SP Comp Metabolic Yxy264 GL OB SP 2.8 g/dL 06/25/2018 SP Comp Metabolic Qfr062 A/ G Ratio SP 1.3 Ratio 06/25/2018 SP Comp Metabolic Fnd355 Os mo SP 279 mOsmo 06/25/2018 SP [...] pg 06/25/2018 SP Cbc With Differential Ord2 [place]% SP 10.6 % 06/25/2018 SP Cbc With [...] K/ul 06/25/2018 SP Cbc With Differential Ord2 [place] ABS# SP 0.7 K/ul 06/25/2018 SP Cbc [...] pg 04/09/2017 SP Cbc With Differential Ord2 [place]% SP 7.9 % 04/09/2017 SP Cbc With [...] K/ul 04/09/2017 SP Cbc With Differential Ord2 [place] ABS# SP 0.7 K/ul 04/09/2017 SP Cbc With Differential Ord2 Eos ABS# SP 0.1 K/ul 04/09/2017 SP Cbc With Differential Ord2 Baso ABS# SP 0.0 K/ul 04/09/2017 SP Tsh Ord6 hTSH II SP 1.04 uIU/mL 04/09/2017 SP Comp Metabolic Ffu431 NA SP 140 mEq/L 04/09/2017 SP Comp Metabolic Qdv635 K SP 3.7 mEq/L 04/09/2017 SP Comp Metabolic Cvq141 CL SP 104 mEq/L 04/09/2017 SP Comp Metabolic Zid285 CO2 SP 28.0 mEq/L 04/09/2017 SP Comp Metabolic Dua054 AN ION GAP SP 12 04/09/2017 SP Comp Metabolic Bzr599 GL UCOSE SP 133 mg/dL 04/09/2017 SP Comp Metabolic Hti209 Cr eat SP 0.6 mg/dL 04/09/2017 SP Comp Metabolic Kig603 eG FR SP 114 ml/min/1.73m2 06/2017 SP Comp Metabolic Wbt238 BUN SP 13 mg/dL 04/09/2017 SP Comp Metabolic Fcv609 B/ C Ratio SP 23.2 Ratio 04/09/2017 SP Comp Metabolic Fmh042 CA LCIUM SP 9.2 mg/dL 04/09/2017 SP Comp Metabolic Hzf703 AL K PHOS SP 53 U/L 04/09/2017 SP Comp Metabolic Ybs140 T(SGOT) SP 21 U/L 04/09/2017 SP Comp Metabolic Zbi469 AL T(SGPT) SP 18 U/L 04/09/2017 SP Comp Metabolic Awe423 BI LI T SP 0.4 mg/dL 04/09/2017 SP Comp Metabolic Ovl430 AL BUMIN SP 4.0 g/dL 04/09/2017 SP Comp Metabolic Lyk786 TP RO SP 7.0 g/dL 04/09/2017 SP Comp Metabolic Cnj492 GL OB SP 3.0 g/dL 04/09/2017 SP Comp Metabolic Lsl751 A/ G Ratio SP 1.4 Ratio 04/09/2017 SP Comp Metabolic Zdf470 Os mo SP 281 mOsmo 04/09/2017 SP [...] palpation SP Overall: benign posterior cervical c ssuan SP 05/14/2015 None SP Full Exam - [...] ADMIN PNEUMOCOCCAL V ACCINE SP SNOMED CT: 24595551 SPCPT-4: G0009 10/13/2017 SP Pneumococcal Polysac charide Vaccine, 23-Valent, Ad SP CPT-4: 39254 10/13/2017 SP ADMIN PNEUMOCOCCAL V ACCINE SP SNOMED CT: 67555928 SPCPT-4: G0009 12/10/2016 SP PNEUMOCOCCAL VACC 13 NORY IM SP SNOMED CT: 67587547 SPCPT-4: 54174 12/10/2016 SP TRIAMCINOLONE ACET I [place] NOS SP CPT-4: J3301 05/14/2016 SP DRAIN/INJECT JOINT/B URSA SP CPT-4: 57209 05/14/2016 SP PPPS, SUBSEQ VISIT CPT- SP [...] 1: SP Code: 8480-6 BMI: SP Code: 57950-3 Heart SP 1: 89 bpm Height: SP [...] 07/21/2016 recent pneumonia- SP in ER in [place] cough Location in the [facility] SP 06/20/2016 None SP cough Quality constant [...] Performer Loca tion POS Codes Date POS [phone]) [id number] EST. P ATIENT, LEVEL III SPDiagnosis: Essential (primary) hypertension[ICD10: I10] Diagnosis: Primary generalized (osteo)arthritis[ICD10: M15.0] Naheed Wang MD, [facility] CPT-4: 51536 02/22/2019 SP [id number]) 60057 EST. P ATIENT, LEVEL III SPDiagnosis: Essential (primary) hypertension[ICD10: I10] Diagnosis: Fibromyalgia[ICD10: M79.7] Diagnosis: Primary generalized (osteo)arthritis[ICD10: M15.0] Naheed Wang MD, [facility] CPT-4: 84310 07/15/2018 SP [id number]) 01636 EST. P ATIENT, LEVEL IV SPDiagnosis: Essential (primary) hypertension[ICD10: I10] Diagnosis: Fibromyalgia[ICD10: M79.7] Diagnosis: Primary generalized (osteo)arthritis[ICD10: M15.0] Naheed Wang MD, [facility] CPT-4: 77118 06/14/2018 SP ([id number]) 13896 EST. P ATIENT, LEVEL IV SPDiagnosis: Encounter for general adult medical examination with abnormal findings[ICD10: Z00.01] Diagnosis: Essential (primary) hypertension[ICD10: I10] Diagnosis: Nonscarring hair loss, unspecified[ICD10: L65.9] Naheed Wang MD, [facility] CPT-4: 02689 04/09/2017 SP [id number]) 33793 EST. P ATIENT, LEVEL III SPDiagnosis: Essential (primary) hypertension[ICD10: I10] Diagnosis: Acute recurrent maxillary sinusitis[ICD10: J01.01] Naheed Wang MD, [facility] CPT-4: 27332 11/27/2016 SP ([id number]) 36564 EST. P ATIENT, LEVEL IV SPDiagnosis: Dyspnea, unspecified[ICD10: R06.00] Diagnosis: Snoring[ICD10: R06.83] Diagnosis: Cough[ICD10: R05] Diagnosis: Personal history of nicotine dependence[ICD10: Z87.891] Diagnosis: Hypersomnia, unspecified[ICD10: G47.10] [facility] SP CPT-4: 31140 07/21/2016 SP [phone]) 81448 EST. P ATIENT, LEVEL III SPDiagnosis: Cough[ICD10: R05] Diagnosis: Other effects of high altitude, initial encounter[ICD10: T70.29XA] Naheed LEON MD, [facility] CPT-4: 06881 06/20/2016 SP [id number]) 81134 EST. P ATIENT, LEVEL III SPDiagnosis: Pain in left wrist[ICD10: M25.532] Diagnosis: Pain in left finger(s)[ICD10: M79.645] Diagnosis: Primary osteoarthritis, left hand[ICD10: M19.042] Jasmin Wang MD, [facility] CPT-4: 39161 05/14/2016 [place] [id number] EST. PATIENT, LEVEL III SPDiagnosis: Pain in left wrist[ICD10: M25.532] Diagnosis: Pain in left finger(s)[ICD10: M79.645] Clau Wang MD, [facility] SP4: 84961 04/23/2016 SP ([id number]) 02813 EST. P ATIENT, LEVEL II SPDiagnosis: INSECT BITE NEC-INFECTED[ICD9: 919.5] Nati Wang MD, [facility] SP4: 84783 05/14/2015 SP ([id number]) OFFICE VISI T, NEW - LEVEL 3 SPDiagnosis: Tobacco use[ICD9: 305.1] Diagnosis: Vaginal dryness, menopausal[ICD9: 627.2] Diagnosis: ALLERGIC RHINITIS[ICD9: 477.9] CAROLYN Wang MD, [facility] CPT-4: SP 01/30/2015 SP Plan of Care Planned Activity Notes C odes POS Status Date POS Patient Education: Patient Medication Summary SP Completed 03/15/2019 SP Patient Education: Patient Medication Summary SP Completed 03/02/2019 SP Care Plan: SCREENINGMAMMOGRAPHYDIGITAL SP : [id number] Pending 03/02/2019 SP Visit Plan: Hypertension - [...] 02/22/2019 SP Appointment: Naheed Smith SPWPtel: [phone] [facility] [id number] (30 min) Complex SP 02/22/2019 SP Patient [...] 07/15/2018 SP Appointment: Naheed Smith SPWPtel: [phone] [facility] [id number] (15 min) Moderate SP 07/15/2018 SP Patient [...] plan. 06/14/2018 SP [facility]ment[phone] [phone] ([facility] min) Complex SP 06/14/2018 SP [...] TSH 04/09/2017 SP [facility]ment[phone] [id number] [place] (30 min) Complex SP 04/09/2017 SP [...] improvement. 11/27/2016 SP App[facility]ment: [facility] [phone] [phone] [place] (30 min) Complex SP 11/27/2016 SP [...] : SP Pending 07/21/2016 SP Visit Plan: Kzsqh-dbzqwamop-ljmwua zpack Altitude sickness- SP also improving-less SOA, [...] surgery 05/14/2016 SP App[facility]ment: [phone] [facility] [place] (15 min) Moderate SP 05/14/2016 [...] concerns. 04/23/2016 SP Appointment: Naheed Smith SPWPtel: [facility] [id number] (30 min) Complex SP 04/23/2016 SP Patient [...] colonoscopy with Dr. Mcneil. 04/18/2015 SP Appointment: [facility] - SP Wellness Visit 04/18/2015 SP Patient [...] for increased redness, swelling, warmth, discharge. . Zjryl-pvktvixod-kx lauren zpack SP Altitude sickness-symptoms also improving-less SOA, less headache-instructed patient and to rest over the week-increase fluids and call Thursday if symptoms are not improved. Patient verbalized understanding of plan.
--- OUTSIDE RECORDS SUMMARY | 2019-10-18 12:42 | XMS REPORT | CCD ---
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 Name Role Phone POS PP Unavailable SP CCM Unavailable SP Summary Purpose Interface Exchange Insurance Providers Payer name Policy type / Coverage type POS republican ID Effective Begin Date Effective POS Date [facility] Medicare Part B POS Unknown [...] Effective Dates POS Tobacco history SNOMED CT: 5975597 Quit less SPthan 5 years ago 04/19/2015 SP Marital status Unknown M arried SP 01/30/2015 SP Number of children Unknown 2 SP 01/30/2015 SP Number of years using tobacco Unknown 20 SP 01/30/[address]: 134527 Currently SP alcohol 01/30/2015 SP Frequency of drinks SNOMED CT: 370173227 7 SP per week 01/30/2015 SP Has [...] Date Sta tus POS Fill Instructions POS Voltaren 1 % topical gel SP RxNorm: 601206 2 Gram(s) TOP QID SP 08/20/2019 Active SP tramadol 50 mg tablet SP 884481 1-2 Tablet(s) PO Q4-6H as needed SP No Stop Date Active SP hydrochlorothiazide 25 mg tablet SP RxNorm: 016231 1 TABLET(S) PO DAILY SP 01/10/2019 06/08/2019 Ac tive SP SP lisinopril 10 mg tablet SP 197942 1 TABLET(S) PO DAILY 12/16/2018 SP 09/11/2019 Active SP Cymbalta 60 mg capsu le,delayed release SP RxNorm: 697260 1 CAPSULE(S) PO DAILY SP 12/16/2018 12/10/2019 Ac tive SP SP tramadol 50 mg tablet SP 054237 1-2 Tablet(s) PO Q4-6H as needed SP No Stop Date Active SP Vivelle-Dot 0.05 mg/ 24 hr transdermal patch SP RxNorm: 428417 1 PATCH TD BIW SP 09/17/2018 09/11/2019 Ac tive SP 1 patch twice weekly SP tramadol 50 mg tablet SP 470268 1-2 Tablet(s) PO Q4-6H as needed SP 11/28/2018 Inactive SP hydrochlorothiazide 25 mg tablet SP RxNorm: 160969 1 TABLET(S) PO DAILY SP 08/20/2018 01/09/2019 In active SP SP lisinopril 10 mg tablet SP 000165 1 Tablet(s) PO daily 07/15/2018 SP 12/15/2018 Inactive SP Cymbalta 60 mg capsu le,delayed release SP RxNorm: 529155 1 Capsule(s) PO daily SP 07/15/2018 12/15/2018 In active SP SP Cymbalta 60 mg capsu le,delayed release SP RxNorm: 164027 1 Capsule(s) PO daily SP 07/08/2018 07/14/2018 In active SP SP Cymbalta 30 mg capsu le,delayed release SP RxNorm: 687180 1 Capsule(s) PO daily SP 06/14/2018 07/07/2018 In active SP SP hydrochlorothiazide 25 mg tablet SP RxNorm: 841087 1 TABLET(S) PO DAILY SP 04/08/2018 06/13/2018 In active SP SP Vivelle-Dot 0.05 mg/ 24 hr transdermal patch SP RxNorm: 695996 1 PATCH TD BIW SP 11/19/2017 09/16/2018 In active SP 1 patch twice weekly SP hydrochlorothiazide 25 mg tablet SP RxNorm: 782716 1 TABLET(S) PO DAILY SP 10/29/2017 03/27/2018 In active SP SP hydrochlorothiazide 25 mg tablet SP RxNorm: 020618 1 Tablet(s) PO daily SP 05/18/2017 10/28/2017 In active SP SP vitamin [id number] ac id 2.5 mg-0.8 mg oral sublingual tablet SP RxNorm: 360136 1000mcg SP PO daily 04/09/2017 No Stop Date SP Active SP Vivelle-Dot 0.05 mg/ 24 hr transdermal patch SP RxNorm: 264507 1 PATCH TD BIW SP 01/01/2017 11/18/2017 In active SP 1 patch twice weekly SP omeprazole 40 mg cap parul,delayed release SP RxNorm: 188324 1 Capsule(s) PO daily SP 11/27/2016 12/26/2016 In active SP SP Levaquin 500 mg tablet SP 028191 1 Tablet(s) PO daily 11/27/2016 SP 12/03/2016 Inactive SP hydrochlorothiazide 25 mg tablet SP RxNorm: 491550 1 Tablet(s) PO daily SP 11/27/2016 05/17/2017 In active SP SP Voltaren 1 % topical gel SP RxNorm: 942037 2 Gram(s) TOP QID SP 07/12/2016 Inactive SP prednisone 10 mg tablet SP 074984 Tablet(s) PO UD 04/23/2016 SP 04/08/2017 Inactive SP Vivelle-Dot 0.05 mg/ 24 hr transdermal patch SP RxNorm: 838157 1 PATCH TD BIW SP 01/28/2016 12/31/2016 In active SP 1 patch twice weekly SP Bactrim DS 800 mg-16 0 mg tablet SP RxNorm: 447141 1 Tablet(s) PO BID SP 05/20/2015 Inactive SP Culturelle 10 billio n cell capsule SP RxNorm: 210044 1 Capsule(s) PO daily SP 05/14/2015 06/12/2015 In active SP SP Vitamin D3 1,000 uni t tablet SP RxNorm: 568253 5 (5000) Tablet(s) PO daily SP 04/18/2015 04/08/2017 In active SP SP Premarin 0.625 mg/gr am vaginal cream SP RxNorm: 705132 1 Gram(s) VAG 2 times weekly SP 02/22/2015 02/21/2015 SP SP Chantix 1 mg tablet SP 783533 1 Tablet(s) PO BID 02/22/2015 SP 02/21/2015 Inactive SP Chantix 1 mg tablet SP 692541 1 Tablet(s) PO BID 02/22/2015 SP 04/22/2015 Inactive [[facility]IDA INGS SP NON-COVERED DRUGS -- BIN:[id number], PCN: [id number], Group: XXXXX, ID# [id number], Questions: . THIS IS NOT INSURANCE.] Premarin 0.625 mg/gr am vaginal cream SP RxNorm: 555047 1 Gram(s) VAG 2 times weekly SP 02/22/2015 09/19/2015 SP [SAVINGS FOR NON-COVERED DRUGS -- BIN:00 3585, PCN: ASPROD1, SPGroup: XXXXX, ID# [id number], Questions: . THIS IS NOT INSURANCE.] magnesium RxNorm: SP 900 PO daily 01/30/2015 SP Inactive [SAVINGS FOR NON-COVERED DR UGS SP BIN:270483, PCN: ASPROD1, Group: XXXXX, ID# [id number], Questions: . THIS IS NOT INSURANCE.] Vivelle-Dot 0.05 mg/ 24 hr transdermal patch SP RxNorm: 312874 2 TD QW SP 01/29/2015 Inactive SP Vivelle-Dot 0.05 mg/ 24 hr transdermal patch SP RxNorm: 043515 1 Patch TD BIW SP 01/30/2015 01/27/2016 In active SP 1 patch twice weekly SP Anoro Ellipta 62.5 m cg-25 mcg/actuation powder for SP RxNorm: 9699524 1 SP INH QAM No Start Date SP Active SP Pataday 0.2 % eye drops SP 9889407 Drop(s) OPH daily No Start Date SP Active SP Flonase Allergy Reli ef 50 mcg/actuation nasal SP RxNorm: 1 to each nare SPSpray NASAL daily No Start Date SP Active SP hydrochlorothiazide 25 mg tablet SP RxNorm: 521411 1 Tablet(s) PO daily SP No Start Date Active SP Zyrtec 10 mg capsule SP 9157389 1 Capsule(s) PO daily No Start SP [place] [address] oral No Start Date SP 04/08/2017 Inactive SP olive leaf extract oral SP oral No Start Date SP Inactive SP Singulair 10 mg tablet SP 855726 1 Tablet(s) PO daily No Start Date SP 02/21/2019 Inactive SP tramadol 50 mg tablet SP 493069 1-2 Tablet(s) PO Q4-6H as needed SP Start Date 09/06/2018 Inactive SP SP coenzyme Q10 200 mg capsule SP RxNorm: 677432 2 Capsule(s) PO daily No SPStart Date 02/21/2019 Inactive SP SP magnesium oral RxNorm: SP oral No Start Date SP Inactive SP Kadi oral RxNorm: SP oral No Start Date SP Inactive SP B Complex 1 tablet SP 1 Tablet(s) PO daily No Start Date SP 04/08/2017 Inactive SP Vitamin D3 1,000 uni t tablet SP RxNorm: 700807 5 (5000) Tablet(s) PO daily SP No Start Date 04/17/2015 Inactive SP SP vitamin Z17-bgici ac id oral SP RxNorm: oral No Start D ate SP 04/08/2017 Inactive SP Calcium RxNorm: SP 1800 PO daily No Start Date SP Inactive SP Kadi-D 12 Hour oral SP 761778 oral No Start Date SP 01/29/2015 Inactive [...] Item Code Result Date POS Comp Metabolic Ftq339 NA POS 140 mEq/L 06/25/2018 SP Comp Metabolic Ngl849 K SP 3.5 mEq/L 06/25/2018 SP Comp Metabolic Vbw027 CL SP 101 mEq/L 06/25/2018 SP Comp Metabolic Oji588 CO2 SP 29.0 mEq/L 06/25/2018 SP Comp Metabolic Zmr206 AN ION GAP SP 14 06/25/2018 SP Comp Metabolic Uic787 GL UCOSE SP 107 mg/dL 06/25/2018 SP Comp Metabolic Lgz144 Cr eat SP 0.6 mg/dL 06/25/2018 SP Comp Metabolic Aoz313 eG FR SP 103 ml/min/1.73m2 06/03 SP Comp Metabolic Xxu293 BUN SP 10 mg/dL 06/25/2018 SP Comp Metabolic Zdo963 B/ C Ratio SP 16.4 Ratio 06/25/2018 SP Comp Metabolic Srd927 CA LCIUM SP 9.1 mg/dL 06/25/2018 SP Comp Metabolic Tyl218 AL K PHOS SP 65 U/L 06/25/2018 SP Comp Metabolic Hxv387 T(SGOT) SP 17 U/L 06/25/2018 SP Comp Metabolic Dye181 AL T(SGPT) SP 13 U/L 06/25/2018 SP Comp Metabolic Rkw762 BI LI T SP 0.5 mg/dL 06/25/2018 SP Comp Metabolic Akd896 AL BUMIN SP 3.8 g/dL 06/25/2018 SP Comp Metabolic Jul729 TP RO SP 6.6 g/dL 06/25/2018 SP Comp Metabolic Swn694 GL OB SP 2.8 g/dL 06/25/2018 SP Comp Metabolic Mat901 A/ G Ratio SP 1.3 Ratio 06/25/2018 SP Comp Metabolic Kek728 Os mo SP 279 mOsmo 06/25/2018 SP [...] pg 06/25/2018 SP Cbc With Differential Ord2 [place]% SP 10.6 % 06/25/2018 SP Cbc With [...] K/ul 06/25/2018 SP Cbc With Differential Ord2 [place] ABS# SP 0.7 K/ul 06/25/2018 SP Cbc [...] pg 04/09/2017 SP Cbc With Differential Ord2 [place]% SP 7.9 % 04/09/2017 SP Cbc With [...] K/ul 04/09/2017 SP Cbc With Differential Ord2 [place] ABS# SP 0.7 K/ul 04/09/2017 SP Cbc With Differential Ord2 Eos ABS# SP 0.1 K/ul 04/09/2017 SP Cbc With Differential Ord2 Baso ABS# SP 0.0 K/ul 04/09/2017 SP Tsh Ord6 hTSH II SP 1.04 uIU/mL 04/09/2017 SP Comp Metabolic Lvc710 NA SP 140 mEq/L 04/09/2017 SP Comp Metabolic Vpa662 K SP 3.7 mEq/L 04/09/2017 SP Comp Metabolic Vxk890 CL SP 104 mEq/L 04/09/2017 SP Comp Metabolic Fls941 CO2 SP 28.0 mEq/L 04/09/2017 SP Comp Metabolic Ryt527 AN ION GAP SP 12 04/09/2017 SP Comp Metabolic Aqa995 GL UCOSE SP 133 mg/dL 04/09/2017 SP Comp Metabolic Unq272 Cr eat SP 0.6 mg/dL 04/09/2017 SP Comp Metabolic Msc238 eG FR SP 114 ml/min/1.73m2 06/2017 SP Comp Metabolic Cla273 BUN SP 13 mg/dL 04/09/2017 SP Comp Metabolic Lsh723 B/ C Ratio SP 23.2 Ratio 04/09/2017 SP Comp Metabolic Acw892 CA LCIUM SP 9.2 mg/dL 04/09/2017 SP Comp Metabolic Ffg277 AL K PHOS SP 53 U/L 04/09/2017 SP Comp Metabolic Osc390 T(SGOT) SP 21 U/L 04/09/2017 SP Comp Metabolic Zsk426 AL T(SGPT) SP 18 U/L 04/09/2017 SP Comp Metabolic Lnx553 BI LI T SP 0.4 mg/dL 04/09/2017 SP Comp Metabolic Vye474 AL BUMIN SP 4.0 g/dL 04/09/2017 SP Comp Metabolic Pib891 TP RO SP 7.0 g/dL 04/09/2017 SP Comp Metabolic Uzc461 GL OB SP 3.0 g/dL 04/09/2017 SP Comp Metabolic Png619 A/ G Ratio SP 1.4 Ratio 04/09/2017 SP Comp Metabolic Ylu415 Os mo SP 281 mOsmo 04/09/2017 SP [...] coarse skin 06/14/2018 SP Endocrine hair loss /0 06/2017 SP Endocrine dry or coarse skin [...] ADMIN PNEUMOCOCCAL V ACCINE SP SNOMED CT: 50114221 SPCPT-4: G0009 10/13/2017 SP Pneumococcal Polysac charide Vaccine, 23-Valent, Ad SP CPT-4: 13032 10/13/2017 SP ADMIN PNEUMOCOCCAL V ACCINE SP SNOMED CT: 92573288 SPCPT-4: G0009 12/10/2016 SP PNEUMOCOCCAL VACC 13 NORY IM SP SNOMED CT: 31781051 SPCPT-4: 96137 12/10/2016 SP TRIAMCINOLONE ACET I [place] NOS SP CPT-4: J3301 05/14/2016 SP DRAIN/INJECT JOINT/B URSA SP CPT-4: 58137 05/14/2016 SP PPPS, SUBSEQ VISIT CPT- SP [...] 1: SP Code: 8480-6 BMI: SP Code: 06755-4 Heart SP 1: 89 bpm Height: SP [...] 07/21/2016 recent pneumonia- SP in ER in [place] cough Location in the [facility] SP 06/20/2016 None SP cough Quality constant [...] Performer Loca tion POS Codes Date POS [id number]) 87801 EST. P ATIENT, LEVEL III SPDiagnosis: Essential (primary) hypertension[ICD10: I10] Diagnosis: Primary generalized (osteo)arthritis[ICD10: M15.0] Naheed Wang MD, [facility] CPT-4: 14220 02/22/2019 SP ([id number]) 05257 EST. P ATIENT, LEVEL III SPDiagnosis: Essential (primary) hypertension[ICD10: I10] Diagnosis: Fibromyalgia[ICD10: M79.7] Diagnosis: Primary generalized (osteo)arthritis[ICD10: M15.0] Naheed Wang MD, [facility] CPT-4: 32899 07/15/2018 SP ([id number]) 15538 EST. P ATIENT, LEVEL IV SPDiagnosis: Essential (primary) hypertension[ICD10: I10] Diagnosis: Fibromyalgia[ICD10: M79.7] Diagnosis: Primary generalized (osteo)arthritis[ICD10: M15.0] Naheed Wang MD, [facility] CPT-4: 40330 06/14/2018 SP ([id number]) 74403 EST. P ATIENT, LEVEL IV SPDiagnosis: Encounter for general adult medical examination with abnormal findings[ICD10: Z00.01] Diagnosis: Essential (primary) hypertension[ICD10: I10] Diagnosis: Nonscarring hair loss, unspecified[ICD10: L65.9] Naheed Wang MD, [facility] CPT-4: 26320 04/09/2017 SP ([id number]) 35097 EST. P ATIENT, LEVEL III SPDiagnosis: Essential (primary) hypertension[ICD10: I10] Diagnosis: Acute recurrent maxillary sinusitis[ICD10: J01.01] Naheed Wang MD, [facility] CPT-4: 90593 11/27/2016 SP ([id number]) 36548 EST. P ATIENT, LEVEL IV SPDiagnosis: Dyspnea, unspecified[ICD10: R06.00] Diagnosis: Snoring[ICD10: R06.83] Diagnosis: Cough[ICD10: R05] Diagnosis: Personal history of nicotine dependence[ICD10: Z87.891] Diagnosis: Hypersomnia, unspecified[ICD10: G47.10] Naheed Wang MD, [facility] CPT-4: 88869 07/21/2016 SP ([id number]) 28403 EST. P ATIENT, LEVEL III SPDiagnosis: Cough[ICD10: R05] Diagnosis: Other effects of high altitude, initial encounter[ICD10: T70.29XA] [facility] CPT-4: 75042 06/20/2016 SP ([id number]) 88523 EST. P ATIENT, LEVEL III SPDiagnosis: Pain in left wrist[ICD10: M25.532] Diagnosis: Pain in left finger(s)[ICD10: M79.645] Diagnosis: Primary osteoarthritis, left hand[ICD10: M19.042] Jasmin Wang MD, [facility] SP CPT-4: 44412 05/14/[place] [address] EST. PATIENT, LEVEL III SPDiagnosis: Pain in left wrist[ICD10: M25.532] Diagnosis: Pain in left finger(s)[ICD10: M79.645] Clau Wang MD, [facility] SP4: 56315 04/23/2016 SP ([id number]) 42070 EST. P ATIENT, LEVEL II SPDiagnosis: INSECT BITE NEC-INFECTED[ICD9: 919.5] Nati Wang MD, [facility] SP4: 08434 05/14/2015 SP ([id number]) OFFICE VISI T, NEW - LEVEL 3 SPDiagnosis: Tobacco use[ICD9: 305.1] Diagnosis: Vaginal dryness, menopausal[ICD9: 627.2] Diagnosis: ALLERGIC RHINITIS[ICD9: 477.9] CAROLYN Wang MD, [facility] CPT-4: SP 01/30/2015 SP Plan of Care Planned Activity Notes C odes POS Status Date POS Patient Education: Patient Medication Summary SP Completed 03/15/2019 SP Care Plan: Bilateral DIAGNOSTICMAMMOGRAPHYDIGITAL SP LOINC : 56813-7 SP Pending 03/15/2019 SP Patient Education: Patient Medication Summary SP Completed 03/02/2019 SP Care Plan: SCREENINGMAMMOGRAPHYDIGITAL SP : 27569-1 Pending 03/02/2019 SP Visit Plan: Hypertension - [...] 02/22/2019 SP Appointment: Naheed Smith SPWPtel: [phone] [facility] [id number] (30 min) Complex SP 02/22/2019 SP Patient [...] 07/15/2018 SP Appointment: Naheed Smith SPWPtel: [phone] [facility] [id number] (15 min) Moderate SP 07/15/2018 SP Patient [...] 06/14/2018 SP [facility]ment: [facility]tel[phone] [id number] [place] (30 min) Complex SP 06/14/2018 SP Patient [...] 04/09/2017 SP Appointment: Naheed Smith SPWPtel: [phone] [facility] [id number] [place] (30 min) Complex SP 04/09/2017 SP [...] improvement. 11/27/2016 SP Appointment: [facility] Smith SP[facility]tel[phone] [id number] [place] (30 min) Complex SP 11/27/2016 SP [...] : SP Pending 07/21/2016 SP Visit Plan: Irpvi-rgwccsbao-lzpedh zpack Altitude sickness- SP also improving-less SOA, [...] 05/14/2016 SP Appointment: [facility] SPWPtel[phone] [facility] [place] (15 min) Moderate SP 05/14/2016 SP [...] concerns. 04/23/2016 SP Appointment: Luis Naheed SPWPtel: [facility] [id number] (30 min) Complex SP 04/23/2016 SP Patient [...] colonoscopy with Dr. Mcneil. 04/18/2015 SP Appointment: [facility] - SP Wellness Visit 04/18/2015 SP Patient [...] Tobacco Addiction SP Completed 01/30/2015 SP Referral: Jno Conrad Referral SP Appointment Requested SP Instructions [...] for increased redness, swelling, warmth, discharge. . Lsakd-ivgjwtxqs-pe lauren zpack SP Altitude sickness-symptoms also improving-less SOA, less headache-instructed patient and to rest over the week-increase fluids and call Thursday if symptoms are not improved. Patient verbalized understanding of plan.
--- OUTSIDE RECORDS SUMMARY | 2019-10-18 12:44 | XMS REPORT | CCD ---
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 Name Role Phone POS PP Unavailable SP CCM Unavailable SP Summary Purpose Interface Exchange Insurance Providers Payer name Policy type / Coverage type POS alliance party ID Effective Begin Date Effective POS Date [facility] Medicare Part B POS Unknown Unknown [...] Effective Dates POS Tobacco history SNOMED CT: 1659604 Quit less SPthan 5 years ago 04/19/2015 SP Marital status Unknown M arried SP 01/30/2015 SP Number of children Unknown 2 SP 01/30/2015 SP Number of years using tobacco Unknown 20 SP 01/30/[address]: 732161 Currently SP alcohol 01/30/2015 SP Frequency of drinks SNOMED CT: 974224716 7 SP per week 01/30/2015 SP Has [...] Status POS Onset Date Resolved Date POS Encounter for screen ing mammogram for malignant [...] Effectiv e Dates POS Condition Status POS Encounter for screen ing mammogram for malignant [...] Voltaren 1 % topical gel SP RxNorm: 299876 2 Gram(s) TOP QID SP 08/20/2019 Active SP tramadol 50 mg tablet SP 959240 1-2 Tablet(s) PO Q4-6H as needed SP No Stop Date Active SP hydrochlorothiazide 25 mg tablet SP RxNorm: 557883 1 TABLET(S) PO DAILY SP 01/10/2019 06/08/2019 Ac tive SP SP lisinopril 10 mg tablet SP 934100 1 TABLET(S) PO DAILY 12/16/2018 SP 09/11/2019 Active SP Cymbalta 60 mg capsu le,delayed release SP RxNorm: 555091 1 CAPSULE(S) PO DAILY SP 12/16/2018 12/10/2019 Ac tive SP SP tramadol 50 mg tablet SP 363336 1-2 Tablet(s) PO Q4-6H as needed SP No Stop Date Active SP Vivelle-Dot 0.05 mg/ 24 hr transdermal patch SP RxNorm: 413829 1 PATCH TD BIW SP 09/17/2018 09/11/2019 Ac tive SP 1 patch twice weekly SP tramadol 50 mg tablet SP 813864 1-2 Tablet(s) PO Q4-6H as needed SP 11/28/2018 Inactive SP hydrochlorothiazide 25 mg tablet SP RxNorm: 900191 1 TABLET(S) PO DAILY SP 08/20/2018 01/09/2019 In active SP SP lisinopril 10 mg tablet SP 979428 1 Tablet(s) PO daily 07/15/2018 SP 12/15/2018 Inactive SP Cymbalta 60 mg capsu le,delayed release SP RxNorm: 561891 1 Capsule(s) PO daily SP 07/15/2018 12/15/2018 In active SP SP Cymbalta 60 mg capsu le,delayed release SP RxNorm: 541203 1 Capsule(s) PO daily SP 07/08/2018 07/14/2018 In active SP SP Cymbalta 30 mg capsu le,delayed release SP RxNorm: 322850 1 Capsule(s) PO daily SP 06/14/2018 07/07/2018 In active SP SP hydrochlorothiazide 25 mg tablet SP RxNorm: 968550 1 TABLET(S) PO DAILY SP 04/08/2018 06/13/2018 In active SP SP Vivelle-Dot 0.05 mg/ 24 hr transdermal patch SP RxNorm: 550820 1 PATCH TD BIW SP 11/19/2017 09/16/2018 In active SP 1 patch twice weekly SP hydrochlorothiazide 25 mg tablet SP RxNorm: 510457 1 TABLET(S) PO DAILY SP 10/29/2017 03/27/2018 In active SP SP hydrochlorothiazide 25 mg tablet SP RxNorm: 184918 1 Tablet(s) PO daily SP 05/18/2017 10/28/2017 In active SP SP vitamin T82-rpyat ac id 2.5 mg-0.8 mg oral sublingual tablet SP RxNorm: 414288 1000mcg SP PO daily 04/09/2017 No Stop Date SP Active SP Vivelle-Dot 0.05 mg/ 24 hr transdermal patch SP RxNorm: 658969 1 PATCH TD BIW SP 01/01/2017 11/18/2017 In active SP 1 patch twice weekly SP omeprazole 40 mg cap parul,delayed release SP RxNorm: 219734 1 Capsule(s) PO daily SP 11/27/2016 12/26/2016 In active SP SP Levaquin 500 mg tablet SP 252955 1 Tablet(s) PO daily 11/27/2016 SP 12/03/2016 Inactive SP hydrochlorothiazide 25 mg tablet SP RxNorm: 749643 1 Tablet(s) PO daily SP 11/27/2016 05/17/2017 In active SP SP Voltaren 1 % topical gel SP RxNorm: 597304 2 Gram(s) TOP QID SP 07/12/2016 Inactive SP prednisone 10 mg tablet SP 357412 Tablet(s) PO UD 04/23/2016 SP 04/08/2017 Inactive SP Vivelle-Dot 0.05 mg/ 24 hr transdermal patch SP RxNorm: 091156 1 PATCH TD BIW SP 01/28/2016 12/31/2016 In active SP 1 patch twice weekly SP Bactrim DS 800 mg-16 0 mg tablet SP RxNorm: 826182 1 Tablet(s) PO BID SP 05/20/2015 Inactive SP Culturelle 10 billio n cell capsule SP RxNorm: 408361 1 Capsule(s) PO daily SP 05/14/2015 06/12/2015 In active SP SP Vitamin D3 1,000 uni t tablet SP RxNorm: 740879 5 (5000) Tablet(s) PO daily SP 04/18/2015 04/08/2017 In active SP SP Premarin 0.625 mg/gr am vaginal cream SP RxNorm: 409607 1 Gram(s) VAG 2 times weekly SP 02/22/2015 02/21/2015 SP SP Chantix 1 mg tablet SP 872709 1 Tablet(s) PO BID 02/22/2015 SP 02/21/2015 Inactive SP Chantix 1 mg tablet SP 258168 1 Tablet(s) PO BID 02/22/2015 SP 04/22/2015 Inactive [[facility]IDA INGS SP NON-COVERED DRUGS -- BIN:675709, PCN: [id number], Group: XXXXX, ID# [id number], Questions: . THIS IS NOT INSURANCE.] Premarin 0.625 mg/gr am vaginal cream SP RxNorm: 864176 1 Gram(s) VAG 2 times weekly SP 02/22/2015 09/19/2015 SP [SAVINGS FOR NON-COVERED DRUGS -- BIN:00 3585, PCN: ASPROD1, SPGroup: XXXXX, ID# [id number], Questions: . THIS IS NOT INSURANCE.] magnesium RxNorm: SP 900 PO daily 01/30/2015 SP Inactive [SAVINGS FOR NON-COVERED DR DUEÑAS SP BIN:[id number], PCN: ASPROD1, Group: XXXXX, ID# [id number], Questions: . THIS IS NOT INSURANCE.] Vivelle-Dot 0.05 mg/ 24 hr transdermal patch SP RxNorm: 606703 2 TD QW SP 01/29/2015 Inactive SP Vivelle-Dot 0.05 mg/ 24 hr transdermal patch SP RxNorm: 414968 1 Patch TD BIW SP 01/30/2015 01/27/2016 In active SP 1 patch twice weekly SP Anoro Ellipta 62.5 m cg-25 mcg/actuation powder for SP RxNorm: 6419400 1 SP INH QAM No Start Date SP Active SP Pataday 0.2 % eye drops SP 9923351 Drop(s) OPH daily No Start Date SP Active SP Flonase Allergy Reli ef 50 mcg/actuation nasal SP RxNorm: 1 to each nare SPSpray NASAL daily No Start Date SP Active SP hydrochlorothiazide 25 mg tablet SP RxNorm: 659244 1 Tablet(s) PO daily SP No Start Date Active SP Zyrtec 10 mg capsule SP 9975689 1 Capsule(s) PO daily No Start SP [place] [address] oral No Start Date SP 04/08/2017 Inactive SP olive leaf extract oral SP oral No Start Date SP Inactive SP Singulair 10 mg tablet SP 987374 1 Tablet(s) PO daily No Start Date SP 02/21/2019 Inactive SP tramadol 50 mg tablet SP 307856 1-2 Tablet(s) PO Q4-6H as needed SP Start Date 09/06/2018 Inactive SP SP coenzyme Q10 200 mg capsule SP RxNorm: 783368 2 Capsule(s) PO daily No SPStart Date 02/21/2019 Inactive SP SP magnesium oral RxNorm: SP oral No Start Date SP Inactive SP Kadi oral RxNorm: SP oral No Start Date SP Inactive SP B Complex 1 tablet SP 1 Tablet(s) PO daily No Start Date SP 04/08/2017 Inactive SP Vitamin D3 1,000 uni t tablet SP RxNorm: 910756 5 (5000) Tablet(s) PO daily SP No Start Date 04/17/2015 Inactive SP SP vitamin F91-szaza ac id oral SP RxNorm: oral No Start D ate SP 04/08/2017 Inactive SP Calcium RxNorm: SP 1800 PO daily No Start Date SP Inactive SP Kadi-D 12 Hour oral SP 041853 oral No Start Date SP 01/29/2015 Inactive [...] Assessments Condition Codes Effectiv e Dates POS Encounter for screening mammogram for ma lignant neoplasm of breast POS ICD-10: Z12.31 SPICD-9: V76.12 03/02/2019 SP Essential [...] Item Code Result Date POS Comp Metabolic Sav643 NA POS 140 mEq/L 06/25/2018 SP Comp Metabolic Wgy259 K SP 3.5 mEq/L 06/25/2018 SP Comp Metabolic Qig183 CL SP 101 mEq/L 06/25/2018 SP Comp Metabolic Gui347 CO2 SP 29.0 mEq/L 06/25/2018 SP Comp Metabolic Mlg146 AN ION GAP SP 14 06/25/2018 SP Comp Metabolic Oup482 GL UCOSE SP 107 mg/dL 06/25/2018 SP Comp Metabolic Zfx986 Cr eat SP 0.6 mg/dL 06/25/2018 SP Comp Metabolic Kps574 eG FR SP 103 ml/min/1.73m2 06/03 SP Comp Metabolic Lfc617 BUN SP 10 mg/dL 06/25/2018 SP Comp Metabolic Bey225 B/ C Ratio SP 16.4 Ratio 06/25/2018 SP Comp Metabolic Naw755 CA LCIUM SP 9.1 mg/dL 06/25/2018 SP Comp Metabolic Hnw271 AL K PHOS SP 65 U/L 06/25/2018 SP Comp Metabolic Noh172 T(SGOT) SP 17 U/L 06/25/2018 SP Comp Metabolic Cef410 AL T(SGPT) SP 13 U/L 06/25/2018 SP Comp Metabolic Qsr874 BI LI T SP 0.5 mg/dL 06/25/2018 SP Comp Metabolic Mak902 AL BUMIN SP 3.8 g/dL 06/25/2018 SP Comp Metabolic Zag113 TP RO SP 6.6 g/dL 06/25/2018 SP Comp Metabolic Uir979 GL OB SP 2.8 g/dL 06/25/2018 SP Comp Metabolic Iqj247 A/ G Ratio SP 1.3 Ratio 06/25/2018 SP Comp Metabolic Dvx182 Os mo SP 279 mOsmo 06/25/2018 SP [...] pg 06/25/2018 SP Cbc With Differential Ord2 Comal% SP 10.6 % 06/25/2018 SP Cbc With [...] K/ul 06/25/2018 SP Cbc With Differential Ord2 Comal ABS# SP 0.7 K/ul 06/25/2018 SP Cbc [...] pg 04/09/2017 SP Cbc With Differential Ord2 Comal% SP 7.9 % 04/09/2017 SP Cbc With [...] K/ul 04/09/2017 SP Cbc With Differential Ord2 Comal ABS# SP 0.7 K/ul 04/09/2017 SP Cbc With Differential Ord2 Eos ABS# SP 0.1 K/ul 04/09/2017 SP Cbc With Differential Ord2 Baso ABS# SP 0.0 K/ul 04/09/2017 SP Tsh Ord6 hTSH II SP 1.04 uIU/mL 04/09/2017 SP Comp Metabolic Wsn419 NA SP 140 mEq/L 04/09/2017 SP Comp Metabolic Wer605 K SP 3.7 mEq/L 04/09/2017 SP Comp Metabolic Xmk585 CL SP 104 mEq/L 04/09/2017 SP Comp Metabolic Lcl009 CO2 SP 28.0 mEq/L 04/09/2017 SP Comp Metabolic Ovz302 AN ION GAP SP 12 04/09/2017 SP Comp Metabolic Xcw595 GL UCOSE SP 133 mg/dL 04/09/2017 SP Comp Metabolic Ppd544 Cr eat SP 0.6 mg/dL 04/09/2017 SP Comp Metabolic Bsj618 eG FR SP 114 ml/min/1.73m2 06/2017 SP Comp Metabolic Szq847 BUN SP 13 mg/dL 04/09/2017 SP Comp Metabolic Riq907 B/ C Ratio SP 23.2 Ratio 04/09/2017 SP Comp Metabolic Nyh685 CA LCIUM SP 9.2 mg/dL 04/09/2017 SP Comp Metabolic Tar324 AL K PHOS SP 53 U/L 04/09/2017 SP Comp Metabolic Klv198 T(SGOT) SP 21 U/L 04/09/2017 SP Comp Metabolic Rgf313 AL T(SGPT) SP 18 U/L 04/09/2017 SP Comp Metabolic Mlc312 BI LI T SP 0.4 mg/dL 04/09/2017 SP Comp Metabolic Ehn673 AL BUMIN SP 4.0 g/dL 04/09/2017 SP Comp Metabolic Qdn844 TP RO SP 7.0 g/dL 04/09/2017 SP Comp Metabolic Pzb770 GL OB SP 3.0 g/dL 04/09/2017 SP Comp Metabolic Fbd720 A/ G Ratio SP 1.4 Ratio 04/09/2017 SP Comp Metabolic Iur840 Os mo SP 281 mOsmo 04/09/2017 SP [...] ADMIN PNEUMOCOCCAL V ACCINE SP SNOMED CT: 86169091 SPCPT-4: G0009 10/13/2017 SP Pneumococcal Polysac charide Vaccine, 23-Valent, Ad SP CPT-4: 50932 10/13/2017 SP ADMIN PNEUMOCOCCAL V ACCINE SP SNOMED CT: 34725406 SPCPT-4: G0009 12/10/2016 SP PNEUMOCOCCAL VACC 13 NORY IM SP SNOMED CT: 68637661 SPCPT-4: 06746 12/10/2016 SP TRIAMCINOLONE ACET I [place] NOS SP CPT-4: J3301 05/14/2016 SP DRAIN/INJECT JOINT/B URSA SP CPT-4: 77726 05/14/2016 SP PPPS, SUBSEQ VISIT CPT- SP [...] 1: SP Code: 8480-6 BMI: SP Code: 78755-7 Heart SP 1: 89 bpm Height: SP [...] 07/21/2016 recent pneumonia- SP in ER in [place] cough Location in the [facility] SP 06/20/2016 None SP cough Quality constant [...] Performer Loca tion POS Codes Date POS ([id number]) 96290 EST. P ATIENT, LEVEL III SPDiagnosis: Essential (primary) hypertension[ICD10: I10] Diagnosis: Primary generalized (osteo)arthritis[ICD10: M15.0] [facility] SP CPT-4: 92489 02/22/2019 SP ([id number]) 31483 EST. P ATIENT, LEVEL III SPDiagnosis: Essential (primary) hypertension[ICD10: I10] Diagnosis: Fibromyalgia[ICD10: M79.7] Diagnosis: Primary generalized (osteo)arthritis[ICD10: M15.0] [facility] SP CPT-4: 32184 07/15/2018 SP ([id number]) 25133 EST. P ATIENT, LEVEL IV SPDiagnosis: Essential (primary) hypertension[ICD10: I10] Diagnosis: Fibromyalgia[ICD10: M79.7] Diagnosis: Primary generalized (osteo)arthritis[ICD10: M15.0] Naheed Wang MD, [facility] CPT-4: 30653 06/14/2018 SP ([id number]) 79471 EST. P ATIENT, LEVEL IV SPDiagnosis: Encounter for general adult medical examination with abnormal findings[ICD10: Z00.01] Diagnosis: Essential (primary) hypertension[ICD10: I10] Diagnosis: Nonscarring hair loss, unspecified[ICD10: L65.9] Naheed Wang MD, [facility] CPT-4: 51516 04/09/2017 SP (79209) 27320 EST. P ATIENT, LEVEL III SPDiagnosis: Essential (primary) hypertension[ICD10: I10] Diagnosis: Acute recurrent maxillary sinusitis[ICD10: J01.01] Naheed Wang MD, [facility] CPT-4: 19287 11/27/2016 SP ([id number]) 51345 EST. P ATIENT, LEVEL IV SPDiagnosis: Dyspnea, unspecified[ICD10: R06.00] Diagnosis: Snoring[ICD10: R06.83] Diagnosis: Cough[ICD10: R05] Diagnosis: Personal history of nicotine dependence[ICD10: Z87.891] Diagnosis: Hypersomnia, unspecified[ICD10: G47.10] Naheed Wang MD, [facility] CPT-4: 60416 07/21/2016 SP ([id number]) 91970 EST. P ATIENT, LEVEL III SPDiagnosis: Cough[ICD10: R05] Diagnosis: Other effects of high altitude, initial encounter[ICD10: T70.29XA] Naheed LEON MD, [facility] CPT-4: 75955 06/20/2016 SP ([id number]) 41580 EST. P ATIENT, LEVEL III SPDiagnosis: Pain in left wrist[ICD10: M25.532] Diagnosis: Pain in left finger(s)[ICD10: M79.645] Diagnosis: Primary osteoarthritis, left hand[ICD10: M19.042] [facility] SP CPT-4: 99596 05/14/2016 [place] [address] EST. PATIENT, LEVEL III SPDiagnosis: Pain in left wrist[ICD10: M25.532] Diagnosis: Pain in left finger(s)[ICD10: M79.645] [facility] SP4: 40825 04/23/2016 SP (37115) 00183 EST. P ATIENT, LEVEL II SPDiagnosis: INSECT BITE NEC-INFECTED[ICD9: 919.5] [facility] SP4: 89269 05/14/2015 SP ([id number]) OFFICE VISI T, NEW - LEVEL 3 SPDiagnosis: Tobacco use[ICD9: 305.1] Diagnosis: Vaginal dryness, menopausal[ICD9: 627.2] Diagnosis: ALLERGIC RHINITIS[ICD9: 477.9] CAROLYN Wang MD, [facility] CPT-4: SP 01/30/2015 SP Plan of Care Planned Activity Notes C odes POS Status Date POS Patient Education: Patient Medication Summary SP Completed 03/02/2019 SP Care Plan: SCREENINGMAMMOGRAPHYDIGITAL SP : [id number] Pending 03/02/2019 SP Visit Plan: Hypertension - [...] symptoms. 02/22/2019 SP Appointment: Naheed Smith SPWPtel: [address] [place] [address] [id number] (30 min) Complex SP 02/22/2019 SP Patient Education: Patient Medication Summary SP Completed 02/22/2019 SP Care Plan: SCREENINGMAMMOGRAPHYDIGITAL SP : [id number] Pending 02/22/2019 SP Visit Plan: Hypertension - uncontro [...] 07/15/2018 SP [facility]ment: [facility] [phone] [phone] (15 min) Moderate SP 07/15/2018 SP [...] 06/14/2018 SP Appointment: Naheed Smith SPWPtel: [phone] [facility] [id number] [place] (30 min) Complex SP 06/14/2018 SP Patient Education: Patient Medication Summary SP Completed 06/14/2018 SP Care Plan: COMPLETE CBC AUTOMATED LOINC : SP Pending 06/14/2018 SP Care Plan: SCREENINGMAMMOGRAPHYDIGITAL SP : [id number] Pending 06/14/2018 SP Appointment: Injection SP 10/13/2017 [...] 04/09/2017 SP Appointment: [facility] [phone] [phone] (30 min) Complex SP 04/09/2017 SP Patient [...] improvement. 11/27/2016 SP App[facility]ment: [facility] [phone] [phone] (30 min) Complex SP 11/27/2016 SP Patient Education: Patient Medication Summary SP Completed 11/27/2016 SP Patient Education: Obesity SP Completed 11/27/2016 SP Visit Plan: Snoring-schedule sleep study Dypsnea-check PFT- SP to Dr Conrad Fatigue-check labs 07/21/2016 SP Visit Plan: Snoring-schedule sleep study Dypsnea-check PFT- SP to Dr Conard Fatigue-check labs 07/21/2016 SP Referral: Jon Conrad Referral SP Completed 07/21/2016 SP Patient Education: Patient Medication Summary SP Completed 07/21/2016 SP Care Plan: Referral Order SNOMED-CT : SP Pending 07/21/2016 SP Visit Plan: Qjxfz-eqitioerl-epbhaq zpack Altitude sickness- SP also improving-less SOA, [...] surgery 05/14/2016 SP Appointment: Jasmin Wang SPWPtel: [address] [place] [address] [id number] (15 min) Moderate SP 05/14/2016 SP Patient [...] concerns. 04/23/2016 SP Appointment: Naheed Smith SPWPtel: [phone] [facility] [id number] (30 min) Complex SP 04/23/2016 SP Patient [...] colonoscopy with Dr. Mcneil. 04/18/2015 SP Appointment: [facility] - SP Wellness Visit [...] she n eeds new medication, call to [place] SP leave her a message-she is going [...] for increased redness, swelling, warmth, discharge. . Sjmbm-rlviecatz-nc nish zpack SP Altitude sickness-symptoms also improving-less SOA, less headache-instructed patient and to rest over the week-increase fluids and call Thursday if symptoms are not improved. Patient verbalized understanding of plan.
--- OUTSIDE RECORDS SUMMARY | 2019-10-18 12:45 | XMS REPORT | CCD ---
Author Author Naheed Smith POS Organization [facility] SP Address [address] [place] [address] Phone SP Care Team Providers Care Senior Chemist Name Role Phone POS PP Unavailable SP CCM Unavailable SP Summary Purpose Interface Exchange Insurance Providers Payer name Policy type / Coverage type POS constitution party ID Effective Begin Date Effective POS Date [facility] [place] Medicare Part B POS Unknown Unknown SP [...] Effective Dates POS Tobacco history SNOMED CT: 7758387 Quit less SPthan 5 years ago 04/19/2015 SP Marital status Unknown M arried SP 01/30/2015 SP Number of children Unknown 2 SP 01/30/2015 SP Number of years using tobacco Unknown 20 SP 01/30/[address]: 523877 Currently SP alcohol 01/30/2015 SP Frequency of drinks SNOMED CT: 614921624 7 SP per week 01/30/2015 SP Has the patient ever used illegal drugs? Unknown SP Has never used illegal drugs 015 SP Allergies, Adverse Reactions, Alerts Allergies, Adverse Reactions, Alerts data not found Past Medical History Illness Codes Condition Status POS Onset Date Resolved Date POS Encounter for genera l adult medical examination with SP findings ICD-9: V70.0 SPICD-10: Z00.01 Active 04/09/2017 SP Unknown SP Essential (primary) hypertension SP ICD-9: 401.1 SPICD-10: I10 Active 11/27/2016 SP Unknown SP Nonscarring hair los s, unspecified SP ICD-9: 704.00 SPICD-10: L65.9 Active 04/09/2017 SP Unknown SP Encounter for immuni zation SP ICD-9: V03.82 SPICD-10: Z23 Active 12/10/2016 SP Unknown SP Acute recurrent maxi llary [...] Dates POS Condition Status POS Encounter for genera l adult medical examination with SP findings ICD-9: V70.0 SPICD-10: Z00.01 04/09/2017 Active SP Essential (primary) hypertension SP ICD-9: 401.1 SPICD-10: I10 11/27/2016 Active SP Nonscarring hair los s, unspecified SP ICD-9: 704.00 SPICD-10: L65.9 04/09/2017 Active SP Encounter for immuni zation SP ICD-9: V03.82 SPICD-10: Z23 12/10/2016 Active SP Acute recurrent maxi llary sinusitis [...] POS hydrochlorothiazide 25 mg tablet SP RxNorm: 480083 1 Tablet(s) PO daily SP 05/18/2017 11/13/2017 Ac tive SP SP vitamin [id number] ac id 2.5 mg-0.8 mg oral sublingual tablet SP RxNorm: 552271 1000mcg SP PO daily 04/09/2017 No Stop Date SP Active SP Vivelle-Dot 0.05 mg/ 24 hr transdermal patch SP RxNorm: 639490 1 PATCH TD BIW SP 01/01/2017 12/26/2017 Ac tive SP 1 patch twice weekly SP omeprazole 40 mg cap parul,delayed release SP RxNorm: 440467 1 Capsule(s) PO daily SP 11/27/2016 12/26/2016 In active SP SP Levaquin 500 mg tablet SP 346463 1 Tablet(s) PO daily 11/27/2016 SP 12/03/2016 Inactive SP hydrochlorothiazide 25 mg tablet SP RxNorm: 960707 1 Tablet(s) PO daily SP 11/27/2016 05/17/2017 In active SP SP Voltaren 1 % topical gel SP RxNorm: 008099 2 Gram(s) TOP QID SP 07/12/2016 Inactive SP prednisone 10 mg tablet SP 814014 Tablet(s) PO UD 04/23/2016 SP 04/08/2017 Inactive SP Vivelle-Dot 0.05 mg/ 24 hr transdermal patch SP RxNorm: 408570 1 PATCH TD BIW SP 01/28/2016 12/31/2016 In active SP 1 patch twice weekly SP Bactrim DS 800 mg-16 0 mg tablet SP RxNorm: 790305 1 Tablet(s) PO BID SP 05/20/2015 Inactive SP Culturelle 10 billio n cell capsule SP RxNorm: 558531 1 Capsule(s) PO daily SP 05/14/2015 06/12/2015 In active SP SP Vitamin D3 1,000 uni t tablet SP RxNorm: 759927 5 (5000) Tablet(s) PO daily SP 04/18/2015 04/08/2017 In active SP SP Premarin 0.625 mg/gr am vaginal cream SP RxNorm: 063698 1 Gram(s) VAG 2 times weekly SP 02/22/2015 02/21/2015 SP SP Chantix 1 mg tablet SP 889275 1 Tablet(s) PO BID 02/22/2015 SP 02/21/2015 Inactive SP Chantix 1 mg tablet SP 416813 1 Tablet(s) PO BID 02/22/2015 SP 04/22/2015 Inactive [SHAHIDA INGS SP NON-COVERED DRUGS -- BIN:[id number], PCN: [id number], Group: XXXXX, ID# [id number], Questions: . THIS IS NOT INSURANCE.] Premarin 0.625 mg/gr am vaginal cream SP RxNorm: 255488 1 Gram(s) VAG 2 times weekly SP 02/22/2015 09/19/2015 SP [SAVINGS FOR NON-COVERED DRUGS -- BIN:00 3585, PCN: [id number], SPGroup: XXXXX, ID# [id number], Questions: . THIS IS NOT INSURANCE.] magnesium RxNorm: SP 900 PO daily 01/30/2015 SP Inactive [SAVINGS FOR NON-COVERED DR UGS SP BIN:[id number], PCN: [id number], Group: XXXXX, ID# [id number], Questions: . THIS IS NOT INSURANCE.] Vivelle-Dot 0.05 mg/ 24 hr transdermal patch SP RxNorm: 928664 2 TD QW SP 01/29/2015 Inactive SP Vivelle-Dot 0.05 mg/ 24 hr transdermal patch SP RxNorm: 256812 1 Patch TD BIW SP 01/30/2015 01/27/2016 In active SP 1 patch twice weekly SP Pataday 0.2 % eye drops SP 8556438 Drop(s) OPH daily No Start Date SP Active SP olive leaf extract oral SP oral No Start Date SP Active SP Flonase Allergy Reli ef 50 mcg/actuation nasal SP RxNorm: 1 to each nare SPSpray NASAL daily No Start Date SP Active SP Singulair 10 mg tablet SP 679356 1 Tablet(s) PO daily No Start Date SP Active SP coenzyme Q10 200 mg capsule SP RxNorm: 715221 2 Capsule(s) PO daily No SPStart Date Active SP Zyrtec 10 mg capsule SP 9906281 1 Capsule(s) PO daily No Start SP Active SP krill oil oral RxNorm: SP oral No Start Date SP [place] [address] oral No Start Date SP 04/08/2017 Inactive SP magnesium oral RxNorm: SP oral No Start Date SP Inactive SP Kadi oral RxNorm: SP oral No Start Date SP Inactive SP B Complex 1 tablet SP 1 Tablet(s) PO daily No Start Date SP 04/08/2017 Inactive SP Vitamin D3 1,000 uni t tablet SP RxNorm: 853534 5 (5000) Tablet(s) PO daily SP No Start Date 04/17/2015 Inactive SP SP vitamin M87-fcfeo ac id oral SP RxNorm: oral No Start D ate SP 04/08/2017 Inactive SP Calcium RxNorm: SP 1800 PO daily No Start Date SP Inactive SP Kadi-D 12 Hour oral SP 236802 oral No Start Date SP 01/29/2015 Inactive SP Medication Administered No Medication Administered data Immunizations Vaccine Codes Date Status POS Influenza CVX: 141 12/11 POS completed SP Pneumococcal (Adult) CVX: 133 12/10/2016 SP completed SP Influenza CVX: 141 05/02 SP completed SP Diphtheria, Tetanus, Pertussis CVX: 20 SP completed SP Pneumococcal CVX: 33 11/2008 SP completed SP Assessments Condition Codes Effectiv e Dates POS Essential (primary) hypertension ICD -10: I10 POSICD-9: 401.1 04/09/2017 SP Encounter for general adult medical exam ination with abnormal findings SP ICD-10: Z00.01 SPICD-9: V70.0 04/09/2017 SP Nonscarring hair loss, unspecified I CD-10: L65.9 SPICD-9: 704.00 04/09/2017 SP Encounter for immunization ICD-10: Z 23 SPICD-9: V03.82 12/10/2016 SP Acute recurrent maxillary sinusitis ICD-10: J01.01 [...] For Visit Effective Dates Notes POS hypertension 04/09/2017 POS vaccination against pneumonia 12/10/2016 SP sinusitis 11/27/2016 SP dyspnea 07/21/2016 SP cough 06/20/2016 SP thumb and hand pain 05/14/2016 SP thumb and hand pain 04/23/2016 SP skin lesion 05/14/2015 SP _ 01/30/2015 She would l sebastián a RX to quit SP used chantix. She would like to try it. Results Observation Observation Code Item POS Item Code Result Date POS Cbc With Differential Ord2 WBC POS 8.19 K/ul 04/09/2017 SP Cbc With Differential [...] pg 04/09/2017 SP Cbc With Differential Ord2 Sharp% SP 7.9 % 04/09/2017 SP Cbc With [...] K/ul 04/09/2017 SP Cbc With Differential Ord2 Sharp ABS# SP 0.7 K/ul 04/09/2017 SP Cbc With Differential Ord2 Eos ABS# SP 0.1 K/ul 04/09/2017 SP Cbc With Differential Ord2 Baso ABS# SP 0.0 K/ul 04/09/2017 SP Tsh Ord6 hTSH II SP 1.04 uIU/mL 04/09/2017 SP Comp Metabolic Qws573 NA SP 140 mEq/L 04/09/2017 SP Comp Metabolic Por075 K SP 3.7 mEq/L 04/09/2017 SP Comp Metabolic Vvb201 CL SP 104 mEq/L 04/09/2017 SP Comp Metabolic Ryy837 CO2 SP 28.0 mEq/L 04/09/2017 SP Comp Metabolic Epc370 AN ION GAP SP 12 04/09/2017 SP Comp Metabolic Ovd427 GL UCOSE SP 133 mg/dL 04/09/2017 SP Comp Metabolic Ztz648 Cr eat SP 0.6 mg/dL 04/09/2017 SP Comp Metabolic Ncw107 eG FR SP 114 ml/min/1.73m2 06/2017 SP Comp Metabolic Ufm149 BUN SP 13 mg/dL 04/09/2017 SP Comp Metabolic Fsf210 B/ C Ratio SP 23.2 Ratio 04/09/2017 SP Comp Metabolic Usy198 CA LCIUM SP 9.2 mg/dL 04/09/2017 SP Comp Metabolic Eor123 AL K PHOS SP 53 U/L 04/09/2017 SP Comp Metabolic Jsl003 T(SGOT) SP 21 U/L 04/09/2017 SP Comp Metabolic Bcs526 AL T(SGPT) SP 18 U/L 04/09/2017 SP Comp Metabolic Eph535 BI LI T SP 0.4 mg/dL 04/09/2017 SP Comp Metabolic Txy352 AL BUMIN SP 4.0 g/dL 04/09/2017 SP Comp Metabolic Sdq313 TP RO SP 7.0 g/dL 04/09/2017 SP Comp Metabolic Zqo218 GL OB SP 3.0 g/dL 04/09/2017 SP Comp Metabolic Snz040 A/ G Ratio SP 1.4 Ratio 04/09/2017 SP Comp Metabolic Glm531 Os mo SP 281 mOsmo 04/09/2017 SP Review of Systems System Result Effective Dates POS Endocrine hair loss 06/2017 POS Endocrine dry or coarse skin 04/09/2017 SP [...] ADMIN PNEUMOCOCCAL V ACCINE SP SNOMED CT: 97174772 SPCPT-4: K1937Kmglvze 12/10/2016 SP PNEUMOCOCCAL VACC 13 NORY IM SP SNOMED CT: 23797676 SPCPT-4: 71935Qlocejn 12/10/2016 SP TRIAMCINOLONE ACET I [place] NOS SP CPT-4: Z3322Oudncnw SP DRAIN/INJECT JOINT/B URSA SP CPT-4: 42748Jdrkzhc SP PPPS, SUBSEQ VISIT SP CPT-4: M4434Nwycqde SP Vital Signs Date Vital POS 04/09/2017 Blood Pressure 1: 128/72 Code: SP6 [...] 1: SP Code: 8480-6 BMI: SP Code: 62221-0 Heart SP 1: 89 bpm Height: SP [...] Resu lt POS Effective Date Notes POS hypertension Quality chr onic SP 04/09/2017 None [...] ER in [place] cough Location in the [facility] SP 06/20/2016 None SP cough Quality [...] Performer Loca tion POS Codes Date POS [id number]) 70479 EST. P ATIENT, LEVEL IV SPDiagnosis: Encounter for general adult medical examination with abnormal findings[ICD10: Z00.01] Diagnosis: Essential (primary) hypertension[ICD10: I10] Diagnosis: Nonscarring hair loss, unspecified[ICD10: L65.9] [facility] SP CPT-4: 11157 04/09/2017 SP [phone]) [id number] EST. P ATIENT, LEVEL III SPDiagnosis: Essential (primary) hypertension[ICD10: I10] Diagnosis: Acute recurrent maxillary sinusitis[ICD10: J01.01] [facility] SP CPT-4: 65467 11/27/2016 [place] [phone]) [id number] EST. P ATIENT, LEVEL IV SPDiagnosis: Dyspnea, unspecified[ICD10: R06.00] Diagnosis: Snoring[ICD10: R06.83] Diagnosis: Cough[ICD10: R05] Diagnosis: Personal history of nicotine dependence[ICD10: Z87.891] Diagnosis: Hypersomnia, unspecified[ICD10: G47.10] Naheed Wang MD, [facility] SP CPT-4: 50341 07/21/2016 SP ([id number]) 62682 EST. P ATIENT, LEVEL III SPDiagnosis: Cough[ICD10: R05] Diagnosis: Other effects of high altitude, initial encounter[ICD10: T70.29XA] Naheed LEON MD, [facility] CPT-4: 12348 06/20/2016 SP ([id number]) 07157 EST. P ATIENT, LEVEL III SPDiagnosis: Pain in left wrist[ICD10: M25.532] Diagnosis: Pain in left finger(s)[ICD10: M79.645] Diagnosis: Primary osteoarthritis, left hand[ICD10: M19.042] Jasmin Wang MD, [facility] CPT-4: 43321 05/14/[place] [address] EST. PATIENT, LEVEL III SPDiagnosis: Pain in left wrist[ICD10: M25.532] Diagnosis: Pain in left finger(s)[ICD10: M79.645] Clau Wang MD, [facility] SP4: [id number] 04/23/2016 SP ([id number]) 53170 EST. P ATIENT, LEVEL II SPDiagnosis: INSECT BITE NEC-INFECTED[ICD9: 919.5] Nati Wang MD, [facility] SP4: 68508 05/14/2015 SP ([id number]) OFFICE VISI T, NEW - LEVEL 3 SPDiagnosis: Tobacco use[ICD9: 305.1] Diagnosis: Vaginal dryness, menopausal[ICD9: 627.2] Diagnosis: ALLERGIC RHINITIS[ICD9: 477.9] CAROLYN Wang MD, [facility] CPT-4: SP 01/30/2015 SP Plan of Care Planned Activity Notes C odes POS Status Date POS Visit Plan: Well Adult - pt was counsele d about diet, exercise, and encouraged SP follow a heart healthy diet and increase activity level. The patient was instructed to RTC yearly for well adult exams and PRN for acute illnesses. The pt was also instructed to have yearly labs for check of cholesterol, thyroid, chem panel, CBC, and renal functioning.Hypertension - well controlled - continue with current medications, continue with no added salt diet. Pt has been encouraged to exercise daily.The pt has been advised to call the office if there are any acute concerns about change in blood pressure readings at home.Hair loss, dry skin, fatigue-check labs including TSH SP 04/09/2017 SP Appointment: [facility] SPWPtel[facility] [phone] [phone] (30 min) Complex SP 04/09/2017 SP Patient Education: Patient Medication Summary SP Completed 04/09/2017 SP Patient Education: Obesity SP Completed 04/09/2017 SP Appointment: Injection SP 12/10/2016 SP Patient Education: Patient Medication Summary SP Completed 12/10/2016 SP Visit Plan: Hypertension - uncontrolled - the patient's medications have been SP as documented in the visit note. The [...] the office next week for practitioner to review.The pt is to call for acute concerns.Sinusitis - Pt has acute infection - pain in face, maxillary region, Pt informed to use decongestant, RX given to patient, sinus rinses also recommended. Call if symptoms do not show improvement. SP 11/27/2016 SP App[facility]ment: [facility]tel[facility] [phone] [phone] (30 min) Complex SP 11/27/2016 SP Patient Education: Patient Medication Summary SP Completed 11/27/2016 SP Patient Education: Obesity SP Completed 11/27/2016 SP Visit Plan: Snoring-schedule sleep study Dypsnea-check PFT-refer to Dr Anamaria Staley labs SP 07/21/2016 SP Visit Plan: Snoring-schedule sleep study Dypsnea-check PFT-refer to Dr Anamaria Staley labs SP 07/21/2016 SP Referral: Jon Conrad Referral SP Completed 07/21/2016 SP Patient Education: Patient Medication Summary SP Completed 07/21/2016 SP Care Plan: Referral Order SNOMED-CT : SP Pending 07/21/2016 SP Visit Plan: Qmhap-vhbppgwkm-xphlhk zpack Altitude sickness-symptoms also SPless SOA, less headache-instructed patient and to rest over the week- increase fluids and call Thursday if symptoms are not improved. Patient verbalized understanding of plan. SP 06/20/2016 SP Patient Education: Patient Medication Summary SP Completed 06/20/2016 SP Care Plan: X-RAY EXAM OF WRIST LOINC : SP Pending 05/23/2016 SP Care Plan: X-RAY EXAM OF FINGER(S) LOINC : SP Pending 05/23/2016 SP Visit Plan: Joint Injection - Pt was giv en post - injection instructions. The SP has been advised to use anti-inflammatories post injection today, ice to the injected site, call if redness, warmth, or increased pain occurs at the site of injection.If injections do not help - then need to consider referral to hand specialist for further eval/injections/possible surgery SP 05/14/2016 SP Appointment: [facility]asmin [facility] SPWPtel: [phone] [facility] [place] (15 min) Moderate SP 05/14/2016 SP Patient Education: Patient Medication Summary SP Completed 05/14/2016 SP Patient Education: Obesity SP Completed 05/14/2016 SP Visit Plan: Left wrist and thumb pain - pt requests x-rays, states that 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 Will send RX - pt is to notify clinic if symptoms do not improve or with any concerns. 2015 SP Appointment: Naheed Smith SPWPtel: [facility] [phone] [place] (30 min) Complex SP 04/23/2016 SP Patient Education: Patient Medication Summary SP Completed 04/23/2016 SP Visit Plan: Insect bites- RX to pt's pha rmacy. Start probiotic while on SP Return to clinic or call for increased redness, swelling, warmth, discharge. SP Appointment: (30 min) SP 05/14/2015 SP Patient Education: Patient Medication Summary SP Completed 05/14/2015 SP Visit Plan: Medicare Exam - today we dis cussed the patients past history, SP preventative exams/evaluations - colonoscopy, fecal occult blood [...] risk and to maintain independence in the home.Today we discussed the need for the patient to create paperwork for Advanced directives as well as for the patient to provide this office with a copy of her DOPA paperwork for health care surrogate.Set up colonoscopy with Dr. Mcneil. SP 04/18/2015 SP Appointment: [facility] - SP Wellness Visit 04/18/2015 SP Patient Education: Patient Medication Summary SP Completed 04/18/2015 SP Care Plan: COMPLETE CBC AUTOMATED LOINC : SP Ordered 04/18/2015 SP Visit Plan: Allergies - chronic - recomm ended pt to use allergy medication as SP Pt has been counseled as to the appropriate use of the medication. Pt to call if allergy symptoms are not controlled with the medication.If using nasal spray, instructions as follows: Nasal spray- use twice daily, one spray per nostril twice daily, after 30 minutes, rinse out nose with saline spray.. Use opposite hand per nostril to spray in the nasal steroid allergy spray.Tobacco abuse - chronic condition for this patient. [...] on use. Patient verbalized understanding of plan. SP 01/30/2015 SP Appointment: New SP 01/30/2015 SP Patient Education: Patient Medication Summary SP Completed 01/30/2015 SP Patient Education: Smoking and Tobacco Addiction SP Completed 01/30/2015 SP Referral: Jon Conrad Referral SP Appointment Requested SP Instructions Comment POS REFER TO DR CONRAD SPPFT sleep study . Snoring-schedule sleep study SP Dypsnea-check PFT-refer to Dr Conrad Fatigue-check labs REFER TO DR CONRAD SPPFT sleep study . Snoring-schedule sleep study SP Dypsnea-check PFT-refer to Dr Conrad Fatigue-check labs . Joint Injection - Pt was given post - injection SP The pt has been advised to use anti-inflammatories post injection today, ice to the injected site, call if redness, warmth, or increased pain occurs at the site of injection. If injections do not help - then need to consider referral to hand specialist for further eval/injections/possible surgery . Left wrist and andrés mb pain [...] skin, fatigue-check labs including [facility] [place] [facility] . Hypertension [...] Call if symptoms do not show improvement. Plan to schedule cristóbal ual medicare this [...] for increased redness, swelling, warmth, discharge. . Piqie-gfstmimbb-ll nish zpack SP Altitude sickness-symptoms also improving-less SOA, less headache-instructed patient and to rest over the week-increase fluids and call Thursday if symptoms are not improved. Patient verbalized understanding of plan.
--- OUTSIDE RECORDS SUMMARY | 2019-10-18 12:45 | XMS REPORT | CCD ---
Author Author Naheed Smith POS Organization [facility] SP Address [address] [place] [address] Phone SP Care Team Providers Care Mold Chipper Name Role Phone POS PP Unavailable SP CCM Unavailable SP Summary Purpose Interface Exchange Insurance Providers Payer name Policy type / Coverage type POS libertarian ID Effective Begin Date Effective POS Date [facility] Medicare Part B POS Unknown [...] Effective Dates POS Tobacco history SNOMED CT: 0653386 Quit less SPthan 5 years ago 04/19/2015 SP Marital status Unknown M arried SP 01/30/2015 SP Number of children Unknown 2 SP 01/30/2015 SP Number of years using tobacco Unknown 20 SP 01/30/[address]: 705652 Currently SP alcohol 01/30/2015 SP Frequency of drinks SNOMED CT: 223563294 7 SP per week 01/30/2015 SP Has [...] Date Sta tus POS Fill Instructions POS vitamin [id number] ac id 2.5 mg-0.8 mg oral sublingual tablet SP RxNorm: 328639 1000mcg SP PO daily 04/09/2017 No Stop Date SP Active SP Vivelle-Dot 0.05 mg/ 24 hr transdermal patch SP RxNorm: 504296 1 PATCH TD BIW SP 01/01/2017 12/26/2017 Ac tive SP 1 patch twice weekly SP omeprazole 40 mg cap parul,delayed release SP RxNorm: 367688 1 Capsule(s) PO daily SP 11/27/2016 12/26/2016 In active SP SP hydrochlorothiazide 25 mg tablet SP RxNorm: 247518 1 Tablet(s) PO daily SP 11/27/2016 05/25/2017 Ac tive SP SP Levaquin 500 mg tablet SP 656787 1 Tablet(s) PO daily 11/27/2016 SP 12/03/2016 Inactive SP Voltaren 1 % topical gel SP RxNorm: 204554 2 Gram(s) TOP QID SP 07/12/2016 Inactive SP prednisone 10 mg tablet SP 253903 Tablet(s) PO UD 04/23/2016 SP 04/08/2017 Inactive SP Vivelle-Dot 0.05 mg/ 24 hr transdermal patch SP RxNorm: 120035 1 PATCH TD BIW SP 01/28/2016 12/31/2016 In active SP 1 patch twice weekly SP Bactrim DS 800 mg-16 0 mg tablet SP RxNorm: 335688 1 Tablet(s) PO BID SP 05/20/2015 Inactive SP Culturelle 10 billio n cell capsule SP RxNorm: 569368 1 Capsule(s) PO daily SP 05/14/2015 06/12/2015 In active SP SP Vitamin D3 1,000 uni t tablet SP RxNorm: 996843 5 (5000) Tablet(s) PO daily SP 04/18/2015 04/08/2017 In active SP SP Premarin 0.625 mg/gr am vaginal cream SP RxNorm: 495066 1 Gram(s) VAG 2 times weekly SP 02/22/2015 02/21/2015 SP SP Chantix 1 mg tablet SP 078826 1 Tablet(s) PO BID 02/22/2015 SP 02/21/2015 Inactive SP Chantix 1 mg tablet SP 620014 1 Tablet(s) PO BID 02/22/2015 SP 04/22/2015 Inactive [[facility] INGS SP NON-COVERED DRUGS -- BIN:[id number], PCN: [id number], Group: XXXXX, ID# [id number], Questions: . THIS IS NOT INSURANCE.] Premarin 0.625 mg/gr am vaginal cream SP RxNorm: 382103 1 Gram(s) VAG 2 times weekly SP 02/22/2015 09/19/2015 SP [SAVINGS FOR NON-COVERED DRUGS -- BIN:00 3585, PCN: ASPROD1, SPGroup: XXXXX, ID# [id number], Questions: . THIS IS NOT INSURANCE.] magnesium RxNorm: SP 900 PO daily 01/30/2015 SP Inactive [SAVINGS FOR NON-COVERED DR UGS SP BIN:700993, PCN: ASPROD1, Group: XXXXX, ID# [id number], Questions: . THIS IS NOT INSURANCE.] Vivelle-Dot 0.05 mg/ 24 hr transdermal patch SP RxNorm: 343620 2 TD QW SP 01/29/2015 Inactive SP Vivelle-Dot 0.05 mg/ 24 hr transdermal patch SP RxNorm: 846554 1 Patch TD BIW SP 01/30/2015 01/27/2016 In active SP 1 patch twice weekly SP Pataday 0.2 % eye drops SP 5872980 Drop(s) OPH daily No Start Date SP Active SP olive leaf extract oral SP oral No Start Date SP Active SP Flonase Allergy Reli ef 50 mcg/actuation nasal SP RxNorm: 1 to each nare SPSpray NASAL daily No Start Date SP Active SP Singulair 10 mg tablet SP 451215 1 Tablet(s) PO daily No Start Date SP Active SP coenzyme Q10 200 mg capsule SP RxNorm: 236159 2 Capsule(s) PO daily No SPStart Date Active SP Zyrtec 10 mg capsule SP 7110419 1 Capsule(s) PO daily No Start SP Active SP krill oil oral RxNorm: SP oral No Start Date SP [place] [address] oral No Start Date SP 04/08/2017 Inactive SP magnesium oral RxNorm: SP oral No Start Date SP Inactive SP Kadi oral RxNorm: SP oral No Start Date SP Inactive SP B Complex 1 tablet SP 1 Tablet(s) PO daily No Start Date SP 04/08/2017 Inactive SP Vitamin D3 1,000 uni t tablet SP RxNorm: 279522 5 (5000) Tablet(s) PO daily SP No Start Date 04/17/2015 Inactive SP SP vitamin I06-dbmnx ac id oral SP RxNorm: oral No Start D ate SP 04/08/2017 Inactive SP Calcium RxNorm: SP 1800 PO daily No Start Date SP Inactive SP Kadi-D 12 Hour oral SP 730763 oral No Start Date SP 01/29/2015 Inactive [...] % 04/09/2017 SP Cbc With Differential Ord2 Lymph% SP 28.3 % 04/09/2017 SP Cbc With Differential Ord2 MCV SP 100.8 fl 04/09/2017 SP Cbc With Differential Ord2 MCH SP 32.6 pg 04/09/2017 SP Cbc With Differential Ord2 Giles% SP 7.9 % 04/09/2017 SP Cbc With [...] K/ul 04/09/2017 SP Cbc With Differential Ord2 Giles ABS# SP 0.7 K/ul 04/09/2017 SP Cbc With Differential Ord2 Eos ABS# SP 0.1 K/ul 04/09/2017 SP Cbc With Differential Ord2 Baso ABS# SP 0.0 K/ul 04/09/2017 SP Tsh Ord6 hTSH II SP 1.04 uIU/mL 04/09/2017 SP Comp Metabolic Qee643 NA SP 140 mEq/L 04/09/2017 SP Comp Metabolic Pkn073 K SP 3.7 mEq/L 04/09/2017 SP Comp Metabolic Dtf486 CL SP 104 mEq/L 04/09/2017 SP Comp Metabolic Vcg057 CO2 SP 28.0 mEq/L 04/09/2017 SP Comp Metabolic Cte280 AN ION GAP SP 12 04/09/2017 SP Comp Metabolic Krs751 GL UCOSE SP 133 mg/dL 04/09/2017 SP Comp Metabolic Rzc020 Cr eat SP 0.6 mg/dL 04/09/2017 SP Comp Metabolic Bzb593 eG FR SP 114 ml/min/1.73m2 06/2017 SP Comp Metabolic Dgq194 BUN SP 13 mg/dL 04/09/2017 SP Comp Metabolic Jbx919 B/ C Ratio SP 23.2 Ratio 04/09/2017 SP Comp Metabolic Ioe658 CA LCIUM SP 9.2 mg/dL 04/09/2017 SP Comp Metabolic Oil040 AL K PHOS SP 53 U/L 04/09/2017 SP Comp Metabolic Sgk148 T(SGOT) SP 21 U/L 04/09/2017 SP Comp Metabolic Irz037 AL T(SGPT) SP 18 U/L 04/09/2017 SP Comp Metabolic Zfb731 BI LI T SP 0.4 mg/dL 04/09/2017 SP Comp Metabolic Jpi627 AL BUMIN SP 4.0 g/dL 04/09/2017 SP Comp Metabolic Bbj458 TP RO SP 7.0 g/dL 04/09/2017 SP Comp Metabolic Buw982 GL OB SP 3.0 g/dL 04/09/2017 SP Comp Metabolic Bhu225 A/ G Ratio SP 1.4 Ratio 04/09/2017 SP Comp Metabolic Ylq137 Os mo SP 281 mOsmo 04/09/2017 SP [...] ADMIN PNEUMOCOCCAL V ACCINE SP SNOMED CT: 06198905 SPCPT-4: K5921Wzmwcot 12/10/2016 SP PNEUMOCOCCAL VACC 13 NORY IM SP SNOMED CT: 98161228 SPCPT-4: 95520Zodcnpq 12/10/2016 SP TRIAMCINOLONE ACET I [place] NOS SP CPT-4: T2492Obsjqda SP DRAIN/INJECT JOINT/B URSA SP CPT-4: 68570Bzoywvt SP PPPS, SUBSEQ VISIT SP CPT-4: B4844Qhgsacs SP Vital Signs Date Vital POS 04/09/2017 [...] 1: SP Code: 8480-6 BMI: SP Code: 52390-5 Heart SP 1: 89 bpm Height: SP [...] ER in [place] cough Location in the [facility] SP 06/20/2016 None SP cough [...] Performer Loca tion POS Codes Date POS [phone]) 68719 EST. P ATIENT, LEVEL IV SPDiagnosis: Encounter for general adult medical examination with abnormal findings[ICD10: Z00.01] Diagnosis: Essential (primary) hypertension[ICD10: I10] Diagnosis: Nonscarring hair loss, unspecified[ICD10: L65.9] Naheed Wang MD, [facility] SP CPT-4: 24599 04/09/[place] [id number] EST. P ATIENT, LEVEL III SPDiagnosis: Essential (primary) hypertension[ICD10: I10] Diagnosis: Acute recurrent maxillary sinusitis[ICD10: J01.01] [facility] SP CPT-4: 13892 11/27/2016 [place] [phone]) [phone] EST. P ATIENT, LEVEL IV SPDiagnosis: Dyspnea, unspecified[ICD10: R06.00] Diagnosis: Snoring[ICD10: R06.83] Diagnosis: Cough[ICD10: R05] Diagnosis: Personal history of nicotine dependence[ICD10: Z87.891] Diagnosis: Hypersomnia, unspecified[ICD10: G47.10] Naheed Wang MD, [facility] SP CPT-4: 72995 07/21/2016 SP [phone]) 09772 EST. P ATIENT, LEVEL III SPDiagnosis: Cough[ICD10: R05] Diagnosis: Other effects of high altitude, initial encounter[ICD10: T70.29XA] Naheed LEON MD, [facility] CPT-4: 13849 06/20/2016 SP [phone]) 33274 EST. P ATIENT, LEVEL III SPDiagnosis: Pain in left wrist[ICD10: M25.532] Diagnosis: Pain in left finger(s)[ICD10: M79.645] Diagnosis: Primary osteoarthritis, left hand[ICD10: M19.042] Jasmin Wang MD, [facility] CPT-4: 44336 05/14/[place] [id number] EST. PATIENT, LEVEL III SPDiagnosis: Pain in left wrist[ICD10: M25.532] Diagnosis: Pain in left finger(s)[ICD10: M79.645] Clau Wang MD, [facility] SP4: 43843 04/23/2016 SP [phone]) 52244 EST. P ATIENT, LEVEL II SPDiagnosis: INSECT BITE NEC-INFECTED[ICD9: 919.5] Nati Wang MD, [facility] SP4: 52224 05/14/2015 SP ([id number]) OFFICE VISI T, NEW - LEVEL 3 SPDiagnosis: Tobacco use[ICD9: 305.1] Diagnosis: Vaginal dryness, menopausal[ICD9: 627.2] Diagnosis: ALLERGIC RHINITIS[ICD9: 477.9] CAROLYN Wang MD, [facility] CPT-4: SP 01/30/2015 SP Plan of Care [...] fatigue-check labs including TSH SP 04/09/2017 SP Patient Education: Patient Medication [...] SP 11/27/2016 SP Appointment: Naheed Smith SPWPtel: [address] [place], [place] [phone] (30 min) Complex SP 11/27/2016 SP Patient Education: Patient Medication Summary SP Completed 11/27/2016 SP Patient Education: Obesity SP Completed 11/27/2016 SP Visit Plan: Snoring-schedule sleep study Dypsnea-check PFT-refer to Dr Booker trevino SP 07/21/2016 SP Visit Plan: Snoring-schedule sleep study Dypsnea-check PFT-refer to Dr Booker Staley labs SP 07/21/2016 SP Referral: Jon Conrad Referral SP Completed 07/21/2016 SP Patient Education: Patient Medication Summary SP Completed 07/21/2016 SP Care Plan: Referral Order SNOMED-CT : SP Pending 07/21/2016 SP Visit Plan: Auguy-besgllisp-dcibwt zpack Altitude sickness-symptoms also SPless SOA, less [...] further eval/injections/possible surgery SP 05/14/2016 SP App[facility]ment: [facility] [phone] [id number] [place] (15 min) Moderate SP 05/14/2016 SP [...] concerns. 2015 SP Appointment: Naheed Smith SPWPtel: [phone] [facility] [phone] [place] (30 min) Complex SP 04/23/2016 SP [...] with Dr. Mcneil. SP 04/18/2015 SP Appointment: [facility] - SP Wellness Visit 04/18/2015 [...] not show improvement. Plan to schedule [facility] SP Plan to do [...] for increased redness, swelling, warmth, discharge. . Zsrtc-icgypxskq-uw lauren young SP Altitude sickness-symptoms also improving-less SOA, less headache-instructed patient and to rest over the week-increase fluids and call Thursday if symptoms are not improved. Patient verbalized understanding of plan.
--- OUTSIDE RECORDS SUMMARY | 2019-10-18 12:47 | XMS REPORT | CCD ---
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 Name Role Phone POS PP Unavailable SP CCM Unavailable SP Summary Purpose Interface Exchange Insurance Providers Payer name Policy type / Coverage type POS libertarian ID Effective Begin Date Effective POS Date [facility] Medicare Part B POS Unknown Unknown [...] Effective Dates POS Tobacco history SNOMED CT: [id number] Quit less SPthan 5 years ago 04/19/2015 SP Marital status Unknown M arried SP 01/30/2015 SP Number of children Unknown 2 SP 01/30/2015 SP Number of years using tobacco Unknown 20 SP 01/30/[address]: 133932 Currently SP alcohol 01/30/2015 SP Frequency of drinks SNOMED CT: 717606156 7 SP per week 01/30/2015 SP Has [...] Status POS Onset Date Resolved Date POS Essential (primary) hypertension SP ICD-9: 401.1 SPICD-10: [...] Effectiv e Dates POS Condition Status POS Essential (primary) hypertension SP ICD-9: 401.1 SPICD-10: [...] tions POS Start Date Stop Date Sta POS Fill Instructions POS Voltaren 1 % topical gel SP RxNorm: 994122 2 Gram(s) TOP QID SP 08/20/2019 Active SP tramadol 50 mg tablet SP 964048 1-2 Tablet(s) PO Q4-6H as needed SP No Stop Date Active SP hydrochlorothiazide 25 mg tablet SP RxNorm: 850402 1 TABLET(S) PO DAILY SP 01/10/2019 06/08/2019 Ac tive SP SP lisinopril 10 mg tablet SP 819034 1 TABLET(S) PO DAILY 12/16/2018 SP 09/11/2019 Active SP Cymbalta 60 mg capsu le,delayed release SP RxNorm: 603497 1 CAPSULE(S) PO DAILY SP 12/16/2018 12/10/2019 Ac tive SP SP tramadol 50 mg tablet SP 997698 1-2 Tablet(s) PO Q4-6H as needed SP No Stop Date Active SP Vivelle-Dot 0.05 mg/ 24 hr transdermal patch SP RxNorm: 772547 1 PATCH TD BIW SP 09/17/2018 09/11/2019 Ac tive SP 1 patch twice weekly SP tramadol 50 mg tablet SP 362715 1-2 Tablet(s) PO Q4-6H as needed SP 11/28/2018 Inactive SP hydrochlorothiazide 25 mg tablet SP RxNorm: 877087 1 TABLET(S) PO DAILY SP 08/20/2018 01/09/2019 In active SP SP lisinopril 10 mg tablet SP 874289 1 Tablet(s) PO daily 07/15/2018 SP 12/15/2018 Inactive SP Cymbalta 60 mg capsu le,delayed release SP RxNorm: 398105 1 Capsule(s) PO daily SP 07/15/2018 12/15/2018 In active SP SP Cymbalta 60 mg capsu le,delayed release SP RxNorm: 076072 1 Capsule(s) PO daily SP 07/08/2018 07/14/2018 In active SP SP Cymbalta 30 mg capsu le,delayed release SP RxNorm: 124971 1 Capsule(s) PO daily SP 06/14/2018 07/07/2018 In active SP SP hydrochlorothiazide 25 mg tablet SP RxNorm: 725670 1 TABLET(S) PO DAILY SP 04/08/2018 06/13/2018 In active SP SP Vivelle-Dot 0.05 mg/ 24 hr transdermal patch SP RxNorm: 911258 1 PATCH TD BIW SP 11/19/2017 09/16/2018 In active SP 1 patch twice weekly SP hydrochlorothiazide 25 mg tablet SP RxNorm: 903562 1 TABLET(S) PO DAILY SP 10/29/2017 03/27/2018 In active SP SP hydrochlorothiazide 25 mg tablet SP RxNorm: 739928 1 Tablet(s) PO daily SP 05/18/2017 10/28/2017 In active SP SP vitamin H37-ccjck ac id 2.5 mg-0.8 mg oral sublingual tablet SP RxNorm: 635558 1000mcg SP PO daily 04/09/2017 No Stop Date SP Active SP Vivelle-Dot 0.05 mg/ 24 hr transdermal patch SP RxNorm: 664924 1 PATCH TD BIW SP 01/01/2017 11/18/2017 In active SP 1 patch twice weekly SP omeprazole 40 mg cap parul,delayed release SP RxNorm: 668421 1 Capsule(s) PO daily SP 11/27/2016 12/26/2016 In active SP SP Levaquin 500 mg tablet SP 003539 1 Tablet(s) PO daily 11/27/2016 SP 12/03/2016 Inactive SP hydrochlorothiazide 25 mg tablet SP RxNorm: 504544 1 Tablet(s) PO daily SP 11/27/2016 05/17/2017 In active SP SP Voltaren 1 % topical gel SP RxNorm: 121886 2 Gram(s) TOP QID SP 07/12/2016 Inactive SP prednisone 10 mg tablet SP 177542 Tablet(s) PO UD 04/23/2016 SP 04/08/2017 Inactive SP Vivelle-Dot 0.05 mg/ 24 hr transdermal patch SP RxNorm: 079052 1 PATCH TD BIW SP 01/28/2016 12/31/2016 In active SP 1 patch twice weekly SP Bactrim DS 800 mg-16 0 mg tablet SP RxNorm: 738667 1 Tablet(s) PO BID SP 05/20/2015 Inactive SP Culturelle 10 billio n cell capsule SP RxNorm: 493924 1 Capsule(s) PO daily SP 05/14/2015 06/12/2015 In active SP SP Vitamin D3 1,000 uni t tablet SP RxNorm: 338585 5 (5000) Tablet(s) PO daily SP 04/18/2015 04/08/2017 In active SP SP Premarin 0.625 mg/gr am vaginal cream SP RxNorm: 202166 1 Gram(s) VAG 2 times weekly SP 02/22/2015 02/21/2015 SP SP Chantix 1 mg tablet SP 081434 1 Tablet(s) PO BID 02/22/2015 SP 02/21/2015 Inactive SP Chantix 1 mg tablet SP 922081 1 Tablet(s) PO BID 02/22/2015 SP 04/22/2015 Inactive [[facility]AHIDA INGS SP NON-COVERED DRUGS -- BIN:[id number], PCN: ASPROD1, Group: XXXXX, ID# [id number], Questions: . THIS IS NOT INSURANCE.] Premarin 0.625 mg/gr am vaginal cream SP RxNorm: 973472 1 Gram(s) VAG 2 times weekly SP 02/22/2015 09/19/2015 SP [SAVINGS FOR NON-COVERED DRUGS -- BIN:00 3585, PCN: ASPROD1, SPGroup: XXXXX, ID# [id number], Questions: . THIS IS NOT INSURANCE.] magnesium RxNorm: SP 900 PO daily 01/30/2015 SP Inactive [SAVINGS FOR NON-COVERED DR UGS SP BIN:929556, PCN: ASPROD1, Group: XXXXX, ID# [id number], Questions: . THIS IS NOT INSURANCE.] Vivelle-Dot 0.05 mg/ 24 hr transdermal patch SP RxNorm: 612051 2 TD QW SP 01/29/2015 Inactive SP Vivelle-Dot 0.05 mg/ 24 hr transdermal patch SP RxNorm: 941828 1 Patch TD BIW SP 01/30/2015 01/27/2016 In active SP 1 patch twice weekly SP Anoro Ellipta 62.5 m cg-25 mcg/actuation powder for SP RxNorm: 5690856 1 SP INH QAM No Start Date SP Active SP Pataday 0.2 % eye drops SP 9143988 Drop(s) OPH daily No Start Date SP Active SP Flonase Allergy Reli ef 50 mcg/actuation nasal SP RxNorm: 1 to each nare SPSpray NASAL daily No Start Date SP Active SP hydrochlorothiazide 25 mg tablet SP RxNorm: 673121 1 Tablet(s) PO daily SP No Start Date Active SP Zyrtec 10 mg capsule SP 3220613 1 Capsule(s) PO daily No Start SP [place] [address] oral No Start Date SP 04/08/2017 Inactive SP olive leaf extract oral SP oral No Start Date SP Inactive SP Singulair 10 mg tablet SP 099837 1 Tablet(s) PO daily No Start Date SP 02/21/2019 Inactive SP tramadol 50 mg tablet SP 720027 1-2 Tablet(s) PO Q4-6H as needed SP Start Date 09/06/2018 Inactive SP SP coenzyme Q10 200 mg capsule SP RxNorm: 154998 2 Capsule(s) PO daily No SPStart Date 02/21/2019 Inactive SP SP magnesium oral RxNorm: SP oral No Start Date SP Inactive SP Kadi oral RxNorm: SP oral No Start Date SP Inactive SP B Complex 1 tablet SP 1 Tablet(s) PO daily No Start Date SP 04/08/2017 Inactive SP Vitamin D3 1,000 uni t tablet SP RxNorm: 175280 5 (5000) Tablet(s) PO daily SP No Start Date 04/17/2015 Inactive SP SP vitamin H23-zodeb ac id oral SP RxNorm: oral No Start D ate SP 04/08/2017 Inactive SP Calcium RxNorm: SP 1800 PO daily No Start Date SP Inactive SP Kadi-D 12 Hour oral SP 406991 oral No Start Date SP 01/29/2015 Inactive [...] (primary) hypertension ICD -10: I10 POSICD-9: 401.1 02/22/2019 SP Primary generalized (osteo)arthritis ICD-10: [...] Item Code Result Date POS Comp Metabolic Tgr011 NA POS 140 mEq/L 06/25/2018 SP Comp Metabolic Yng682 K SP 3.5 mEq/L 06/25/2018 SP Comp Metabolic Onr342 CL SP 101 mEq/L 06/25/2018 SP Comp Metabolic Ksy076 CO2 SP 29.0 mEq/L 06/25/2018 SP Comp Metabolic Ovv232 AN ION GAP SP 14 06/25/2018 SP Comp Metabolic Ywz903 GL UCOSE SP 107 mg/dL 06/25/2018 SP Comp Metabolic Isq020 Cr eat SP 0.6 mg/dL 06/25/2018 SP Comp Metabolic Vdw053 eG FR SP 103 ml/min/1.73m2 06/03 SP Comp Metabolic Qaj777 BUN SP 10 mg/dL 06/25/2018 SP Comp Metabolic Fdg597 B/ C Ratio SP 16.4 Ratio 06/25/2018 SP Comp Metabolic Hzi609 CA LCIUM SP 9.1 mg/dL 06/25/2018 SP Comp Metabolic Mdq085 AL K PHOS SP 65 U/L 06/25/2018 SP Comp Metabolic Xpq007 T(SGOT) SP 17 U/L 06/25/2018 SP Comp Metabolic Pxr946 AL T(SGPT) SP 13 U/L 06/25/2018 SP Comp Metabolic Cei879 BI LI T SP 0.5 mg/dL 06/25/2018 SP Comp Metabolic Pwi075 AL BUMIN SP 3.8 g/dL 06/25/2018 SP Comp Metabolic Pte127 TP RO SP 6.6 g/dL 06/25/2018 SP Comp Metabolic Uky677 GL OB SP 2.8 g/dL 06/25/2018 SP Comp Metabolic Vdv659 A/ G Ratio SP 1.3 Ratio 06/25/2018 SP Comp Metabolic Tbh493 Os mo SP 279 mOsmo 06/25/2018 SP [...] pg 06/25/2018 SP Cbc With Differential Ord2 [place]% SP 10.6 % 06/25/2018 SP Cbc With [...] K/ul 06/25/2018 SP Cbc With Differential Ord2 [place] ABS# SP 0.7 K/ul 06/25/2018 SP Cbc [...] pg 04/09/2017 SP Cbc With Differential Ord2 [place]% SP 7.9 % 04/09/2017 SP Cbc With [...] K/ul 04/09/2017 SP Cbc With Differential Ord2 [place] ABS# SP 0.7 K/ul 04/09/2017 SP Cbc With Differential Ord2 Eos ABS# SP 0.1 K/ul 04/09/2017 SP Cbc With Differential Ord2 Baso ABS# SP 0.0 K/ul 04/09/2017 SP Tsh Ord6 hTSH II SP 1.04 uIU/mL 04/09/2017 SP Comp Metabolic Gtb899 NA SP 140 mEq/L 04/09/2017 SP Comp Metabolic Xvu380 K SP 3.7 mEq/L 04/09/2017 SP Comp Metabolic Uym894 CL SP 104 mEq/L 04/09/2017 SP Comp Metabolic Tqr882 CO2 SP 28.0 mEq/L 04/09/2017 SP Comp Metabolic Wsi716 AN ION GAP SP 12 04/09/2017 SP Comp Metabolic Usl841 GL UCOSE SP 133 mg/dL 04/09/2017 SP Comp Metabolic Iqt249 Cr eat SP 0.6 mg/dL 04/09/2017 SP Comp Metabolic Whs790 eG FR SP 114 ml/min/1.73m2 06/2017 SP Comp Metabolic Nfq612 BUN SP 13 mg/dL 04/09/2017 SP Comp Metabolic Skj879 B/ C Ratio SP 23.2 Ratio 04/09/2017 SP Comp Metabolic Hxg806 CA LCIUM SP 9.2 mg/dL 04/09/2017 SP Comp Metabolic Anc347 AL K PHOS SP 53 U/L 04/09/2017 SP Comp Metabolic Hep299 T(SGOT) SP 21 U/L 04/09/2017 SP Comp Metabolic Gjc969 AL T(SGPT) SP 18 U/L 04/09/2017 SP Comp Metabolic Lem491 BI LI T SP 0.4 mg/dL 04/09/2017 SP Comp Metabolic Qir936 AL BUMIN SP 4.0 g/dL 04/09/2017 SP Comp Metabolic Ivr715 TP RO SP 7.0 g/dL 04/09/2017 SP Comp Metabolic Uhv098 GL OB SP 3.0 g/dL 04/09/2017 SP Comp Metabolic Ybn441 A/ G Ratio SP 1.4 Ratio 04/09/2017 SP Comp Metabolic Gqg852 Os mo SP 281 mOsmo 04/09/2017 SP [...] ADMIN PNEUMOCOCCAL V ACCINE SP SNOMED CT: 50006069 SPCPT-4: G0009 10/13/2017 SP Pneumococcal Polysac charide Vaccine, 23-Valent, Ad SP CPT-4: 16086 10/13/2017 SP ADMIN PNEUMOCOCCAL V ACCINE SP SNOMED CT: 09575322 SPCPT-4: G0009 12/10/2016 SP PNEUMOCOCCAL VACC 13 NORY IM SP SNOMED CT: 78597642 SPCPT-4: 09652 12/10/2016 SP TRIAMCINOLONE ACET I [place] NOS SP CPT-4: J3301 05/14/2016 SP DRAIN/INJECT JOINT/B URSA SP CPT-4: 60361 05/14/2016 SP PPPS, SUBSEQ VISIT CPT- SP [...] 1: SP Code: 8480-6 BMI: SP Code: 73411-8 Heart SP 1: 89 bpm Height: SP [...] 07/21/2016 recent pneumonia- SP in ER in [place] cough Location in the [facility] SP 06/20/2016 None SP cough Quality constant [...] Performer Loca tion POS Codes Date POS [id number]) 00406 EST. P ATIENT, LEVEL III SPDiagnosis: Essential (primary) hypertension[ICD10: I10] Diagnosis: Primary generalized (osteo)arthritis[ICD10: M15.0] Naheed Wang MD, [facility] SP CPT-4: 47970 02/22/2019 [place] [phone]) 92373 EST. P ATIENT, LEVEL III SPDiagnosis: Essential (primary) hypertension[ICD10: I10] Diagnosis: Fibromyalgia[ICD10: M79.7] Diagnosis: Primary generalized (osteo)arthritis[ICD10: M15.0] Naheed Wang MD, [facility] SP CPT-4: 11238 07/15/2018 [place] [phone]) 69461 EST. P ATIENT, LEVEL IV SPDiagnosis: Essential (primary) hypertension[ICD10: I10] Diagnosis: Fibromyalgia[ICD10: M79.7] Diagnosis: Primary generalized (osteo)arthritis[ICD10: M15.0] Naheed Wang MD, [facility] SP CPT-4: 76698 06/14/2018 [place] [phone]) 20728 EST. P ATIENT, LEVEL IV SPDiagnosis: Encounter for general adult medical examination with abnormal findings[ICD10: Z00.01] Diagnosis: Essential (primary) hypertension[ICD10: I10] Diagnosis: Nonscarring hair loss, unspecified[ICD10: L65.9] Naheed Wang MD, [facility] CPT-4: 80022 04/09/2017 SP ([id number]) 36962 EST. P ATIENT, LEVEL III SPDiagnosis: Essential (primary) hypertension[ICD10: I10] Diagnosis: Acute recurrent maxillary sinusitis[ICD10: J01.01] Naheed Wang MD, [facility] CPT-4: 67795 11/27/2016 SP ([id number]) 58399 EST. P ATIENT, LEVEL IV SPDiagnosis: Dyspnea, unspecified[ICD10: R06.00] Diagnosis: Snoring[ICD10: R06.83] Diagnosis: Cough[ICD10: R05] Diagnosis: Personal history of nicotine dependence[ICD10: Z87.891] Diagnosis: Hypersomnia, unspecified[ICD10: G47.10] Naheed Wang MD, [facility] CPT-4: 07647 07/21/2016 SP ([id number]) 03438 EST. P ATIENT, LEVEL III SPDiagnosis: Cough[ICD10: R05] Diagnosis: Other effects of high altitude, initial encounter[ICD10: T70.29XA] Naheed LEON MD, [facility] CPT-4: 90328 06/20/2016 SP ([id number]) 29942 EST. P ATIENT, LEVEL III SPDiagnosis: Pain in left wrist[ICD10: M25.532] Diagnosis: Pain in left finger(s)[ICD10: M79.645] Diagnosis: Primary osteoarthritis, left hand[ICD10: M19.042] Jasmin Wang MD, [facility] CPT-4: 99640 05/14/[place] [id number] EST. PATIENT, LEVEL III SPDiagnosis: Pain in left wrist[ICD10: M25.532] Diagnosis: Pain in left finger(s)[ICD10: M79.645] Clau Wang MD, [facility] SP4: 23847 04/23/2016 SP ([id number]) 00974 EST. P ATIENT, LEVEL II SPDiagnosis: INSECT BITE NEC-INFECTED[ICD9: 919.5] [facility] SP4: 15724 05/14/2015 SP ([id number]) OFFICE JORGE BAZZI - LEVEL 3 SPDiagnosis: Tobacco use[ICD9: 305.1] Diagnosis: Vaginal dryness, menopausal[ICD9: 627.2] Diagnosis: ALLERGIC RHINITIS[ICD9: 477.9] [facility] CPT-4: SP 01/30/2015 SP Plan of Care Planned Activity Notes C odes POS Status Date POS Visit Plan: Hypertension - well con trolled [...] for break through pain symptoms. 02/22/2019 SP Patient Education: Patient Medication Summary SP Completed 02/22/2019 SP Care Plan: SCREENINGMAMMOGRAPHYDIGITAL SP : [id number] Pending 02/22/2019 SP Visit Plan: Hypertension - [...] today 07/15/2018 SP Appointment: Naheed Smith SPWPtel: [address] [place], [place] [phone] (15 min) Moderate SP 07/15/2018 SP Patient [...] understanding of plan. 06/14/2018 SP Appointment: Naheed SmithPtel: [phone] (30 min) Complex SP 06/14/2018 SP Patient Education: Patient Medication Summary SP Completed 06/14/2018 SP Care Plan: COMPLETE CBC AUTOMATED LOINC : SP Pending 06/14/2018 SP Care Plan: SCREENINGMAMMOGRAPHYDIGITAL SP : [id number] Pending 06/14/2018 SP Appointment: Injection SP 10/13/2017 [...] labs including TSH 04/09/2017 SP [facility]: [facility] [phone] [facility] (30 min) Complex SP 04/09/2017 SP Patient [...] 11/27/2016 SP Appointment: Luis Naheed SPWPtel: [phone] [facility] [id number] (30 min) Complex SP 11/27/2016 SP Patient [...] : SP Pending 07/21/2016 SP Visit Plan: Fwidk-grwgklqzv-czcguz zpack Altitude sickness- SP also improving-less SOA, [...] surgery 05/14/2016 SP Appointment: [facility] SPWPtel[phone] [facility] [place] [place] (15 min) Moderate SP 05/14/2016 SP [...] concerns. 04/23/2016 SP Appointment: Naheed Smith SPWPtel: [phone] [facility] [id number] [place] (30 min) Complex SP 04/23/2016 SP [...] SP Visit Plan: Medicare Exam - today jer colby discussed the patients SP history, immunizations, preventative [...] colonoscopy with Dr. Mcneil. 04/18/2015 SP Appointment: [facility] - SP Wellness Visit 04/18/2015 SP Patient [...] n eeds new medication, call to lee LEON leave her a message-she is going out [...] verbalized understanding of plan. Plan to schedule crsitóbal ual medicare this summer SP Plan to [...] for increased redness, swelling, warmth, discharge. . Nlacp-olqybfacf-sp nish zpack SP Altitude sickness-symptoms also improving-less SOA, less headache-instructed patient and to rest over the week-increase fluids and call Thursday if symptoms are not improved. Patient verbalized understanding of plan.
--- OUTSIDE RECORDS SUMMARY | 2019-10-18 12:48 | XMS REPORT | CCD ---
Author Author Naheed Smith POS Organization [facility] SP Address [address] [place] [address] Phone SP Care Team Providers Care Hedis Specialist Name Role Phone POS PP Unavailable SP CCM Unavailable SP Summary Purpose Interface Exchange Insurance Providers Payer name Policy type / Coverage type POS constitution party ID Effective Begin Date Effective POS Date [facility] Medicare Part B POS Unknown Unknown [...] Effective Dates POS Tobacco history SNOMED CT: 1635775 Quit less SPthan 5 years ago 04/19/2015 SP Marital status Unknown M arried SP 01/30/2015 SP Number of children Unknown 2 SP 01/30/2015 SP Number of years using tobacco Unknown 20 SP 01/30/[address]: 639769 Currently SP alcohol 01/30/2015 SP Frequency of drinks SNOMED CT: 396807565 7 SP per week 01/30/2015 SP Has [...] Voltaren 1 % topical gel SP RxNorm: 430073 2 Gram(s) TOP QID SP 08/20/2019 Active SP tramadol 50 mg tablet SP 235981 1-2 Tablet(s) PO Q4-6H as needed SP No Stop Date Active SP hydrochlorothiazide 25 mg tablet SP RxNorm: 154097 1 TABLET(S) PO DAILY SP 01/10/2019 06/08/2019 Ac tive SP SP lisinopril 10 mg tablet SP 350771 1 TABLET(S) PO DAILY 12/16/2018 SP 09/11/2019 Active SP Cymbalta 60 mg capsu le,delayed release SP RxNorm: 123990 1 CAPSULE(S) PO DAILY SP 12/16/2018 12/10/2019 Ac tive SP SP tramadol 50 mg tablet SP 397995 1-2 Tablet(s) PO Q4-6H as needed SP No Stop Date Active SP Vivelle-Dot 0.05 mg/ 24 hr transdermal patch SP RxNorm: 536625 1 PATCH TD BIW SP 09/17/2018 09/11/2019 Ac tive SP 1 patch twice weekly SP tramadol 50 mg tablet SP 999163 1-2 Tablet(s) PO Q4-6H as needed SP 11/28/2018 Inactive SP hydrochlorothiazide 25 mg tablet SP RxNorm: 079492 1 TABLET(S) PO DAILY SP 08/20/2018 01/09/2019 In active SP SP lisinopril 10 mg tablet SP 177233 1 Tablet(s) PO daily 07/15/2018 SP 12/15/2018 Inactive SP Cymbalta 60 mg capsu le,delayed release SP RxNorm: 835025 1 Capsule(s) PO daily SP 07/15/2018 12/15/2018 In active SP SP Cymbalta 60 mg capsu le,delayed release SP RxNorm: 386803 1 Capsule(s) PO daily SP 07/08/2018 07/14/2018 In active SP SP Cymbalta 30 mg capsu le,delayed release SP RxNorm: 363697 1 Capsule(s) PO daily SP 06/14/2018 07/07/2018 In active SP SP hydrochlorothiazide 25 mg tablet SP RxNorm: 301469 1 TABLET(S) PO DAILY SP 04/08/2018 06/13/2018 In active SP SP Vivelle-Dot 0.05 mg/ 24 hr transdermal patch SP RxNorm: 895288 1 PATCH TD BIW SP 11/19/2017 09/16/2018 In active SP 1 patch twice weekly SP hydrochlorothiazide 25 mg tablet SP RxNorm: 328652 1 TABLET(S) PO DAILY SP 10/29/2017 03/27/2018 In active SP SP hydrochlorothiazide 25 mg tablet SP RxNorm: 760891 1 Tablet(s) PO daily SP 05/18/2017 10/28/2017 In active SP SP vitamin [id number] ac id 2.5 mg-0.8 mg oral sublingual tablet SP RxNorm: 498980 1000mcg SP PO daily 04/09/2017 No Stop Date SP Active SP Vivelle-Dot 0.05 mg/ 24 hr transdermal patch SP RxNorm: 190774 1 PATCH TD BIW SP 01/01/2017 11/18/2017 In active SP 1 patch twice weekly SP omeprazole 40 mg cap parul,delayed release SP RxNorm: 052443 1 Capsule(s) PO daily SP 11/27/2016 12/26/2016 In active SP SP Levaquin 500 mg tablet SP 110217 1 Tablet(s) PO daily 11/27/2016 SP 12/03/2016 Inactive SP hydrochlorothiazide 25 mg tablet SP RxNorm: 531813 1 Tablet(s) PO daily SP 11/27/2016 05/17/2017 In active SP SP Voltaren 1 % topical gel SP RxNorm: 033203 2 Gram(s) TOP QID SP 07/12/2016 Inactive SP prednisone 10 mg tablet SP 113024 Tablet(s) PO UD 04/23/2016 SP 04/08/2017 Inactive SP Vivelle-Dot 0.05 mg/ 24 hr transdermal patch SP RxNorm: 710886 1 PATCH TD BIW SP 01/28/2016 12/31/2016 In active SP 1 patch twice weekly SP Bactrim DS 800 mg-16 0 mg tablet SP RxNorm: 117507 1 Tablet(s) PO BID SP 05/20/2015 Inactive SP Culturelle 10 billio n cell capsule SP RxNorm: 634682 1 Capsule(s) PO daily SP 05/14/2015 06/12/2015 In active SP SP Vitamin D3 1,000 uni t tablet SP RxNorm: 493818 5 (5000) Tablet(s) PO daily SP 04/18/2015 04/08/2017 In active SP SP Premarin 0.625 mg/gr am vaginal cream SP RxNorm: 360047 1 Gram(s) VAG 2 times weekly SP 02/22/2015 02/21/2015 SP SP Chantix 1 mg tablet SP 212818 1 Tablet(s) PO BID 02/22/2015 SP 02/21/2015 Inactive SP Chantix 1 mg tablet SP 616425 1 Tablet(s) PO BID 02/22/2015 SP 04/22/2015 Inactive [[facility]AHIDA INGS SP NON-COVERED DRUGS -- BIN:925213, PCN: ASPROD1, Group: XXXXX, ID# [id number], Questions: . THIS IS NOT INSURANCE.] Premarin 0.625 mg/gr am vaginal cream SP RxNorm: 672061 1 Gram(s) VAG 2 times weekly SP 02/22/2015 09/19/2015 SP [SAVINGS FOR NON-COVERED DRUGS -- BIN:00 3585, PCN: ASPROD1, SPGroup: XXXXX, ID# [id number], Questions: . THIS IS NOT INSURANCE.] magnesium RxNorm: SP 900 PO daily 01/30/2015 SP Inactive [SAVINGS FOR NON-COVERED DR UGS SP BIN:685830, PCN: ASPROD1, Group: XXXXX, ID# [id number], Questions: . THIS IS NOT INSURANCE.] Vivelle-Dot 0.05 mg/ 24 hr transdermal patch SP RxNorm: 631535 2 TD QW SP 01/29/2015 Inactive SP Vivelle-Dot 0.05 mg/ 24 hr transdermal patch SP RxNorm: 667825 1 Patch TD BIW SP 01/30/2015 01/27/2016 In active SP 1 patch twice weekly SP Anoro Ellipta 62.5 m cg-25 mcg/actuation powder for SP RxNorm: 5785116 1 SP INH QAM No Start Date SP Active SP Pataday 0.2 % eye drops SP 7280725 Drop(s) OPH daily No Start Date SP Active SP Flonase Allergy Reli ef 50 mcg/actuation nasal SP RxNorm: 1 to each nare SPSpray NASAL daily No Start Date SP Active SP hydrochlorothiazide 25 mg tablet SP RxNorm: 286297 1 Tablet(s) PO daily SP No Start Date Active SP Zyrtec 10 mg capsule SP 0595958 1 Capsule(s) PO daily No Start SP [place] [address] oral No Start Date SP 04/08/2017 Inactive SP olive leaf extract oral SP oral No Start Date SP Inactive SP Singulair 10 mg tablet SP 931123 1 Tablet(s) PO daily No Start Date SP 02/21/2019 Inactive SP tramadol 50 mg tablet SP 662861 1-2 Tablet(s) PO Q4-6H as needed SP Start Date 09/06/2018 Inactive SP SP coenzyme Q10 200 mg capsule SP RxNorm: 639486 2 Capsule(s) PO daily No SPStart Date 02/21/2019 Inactive SP SP magnesium oral RxNorm: SP oral No Start Date SP Inactive SP Kadi oral RxNorm: SP oral No Start Date SP Inactive SP B Complex 1 tablet SP 1 Tablet(s) PO daily No Start Date SP 04/08/2017 Inactive SP Vitamin D3 1,000 uni t tablet SP RxNorm: 164426 5 (5000) Tablet(s) PO daily SP No Start Date 04/17/2015 Inactive SP SP vitamin V61-ohndt ac id oral SP RxNorm: oral No Start D ate SP 04/08/2017 Inactive SP Calcium RxNorm: SP 1800 PO daily No Start Date SP Inactive SP Kadi-D 12 Hour oral SP 064083 oral No Start Date SP 01/29/2015 Inactive [...] Item Code Result Date POS Comp Metabolic Bqy925 NA POS 140 mEq/L 06/25/2018 SP Comp Metabolic Nej685 K SP 3.5 mEq/L 06/25/2018 SP Comp Metabolic Hie793 CL SP 101 mEq/L 06/25/2018 SP Comp Metabolic Jin947 CO2 SP 29.0 mEq/L 06/25/2018 SP Comp Metabolic Jtv429 AN ION GAP SP 14 06/25/2018 SP Comp Metabolic Xcl685 GL UCOSE SP 107 mg/dL 06/25/2018 SP Comp Metabolic Qtk439 Cr eat SP 0.6 mg/dL 06/25/2018 SP Comp Metabolic Ppl212 eG FR SP 103 ml/min/1.73m2 06/03 SP Comp Metabolic Yib663 BUN SP 10 mg/dL 06/25/2018 SP Comp Metabolic Yfr555 B/ C Ratio SP 16.4 Ratio 06/25/2018 SP Comp Metabolic Qvs201 CA LCIUM SP 9.1 mg/dL 06/25/2018 SP Comp Metabolic Frv104 AL K PHOS SP 65 U/L 06/25/2018 SP Comp Metabolic Aqv006 T(SGOT) SP 17 U/L 06/25/2018 SP Comp Metabolic Epz830 AL T(SGPT) SP 13 U/L 06/25/2018 SP Comp Metabolic Ovy798 BI LI T SP 0.5 mg/dL 06/25/2018 SP Comp Metabolic Tkx085 AL BUMIN SP 3.8 g/dL 06/25/2018 SP Comp Metabolic Ume378 TP RO SP 6.6 g/dL 06/25/2018 SP Comp Metabolic Zdp424 GL OB SP 2.8 g/dL 06/25/2018 SP Comp Metabolic Fan571 A/ G Ratio SP 1.3 Ratio 06/25/2018 SP Comp Metabolic Pvw781 Os mo SP 279 mOsmo 06/25/2018 SP [...] pg 06/25/2018 SP Cbc With Differential Ord2 [place]% SP 10.6 % 06/25/2018 SP Cbc With [...] K/ul 06/25/2018 SP Cbc With Differential Ord2 [place] ABS# SP 0.7 K/ul 06/25/2018 SP Cbc [...] pg 04/09/2017 SP Cbc With Differential Ord2 [place]% SP 7.9 % 04/09/2017 SP Cbc With [...] K/ul 04/09/2017 SP Cbc With Differential Ord2 [place] ABS# SP 0.7 K/ul 04/09/2017 SP Cbc With Differential Ord2 Eos ABS# SP 0.1 K/ul 04/09/2017 SP Cbc With Differential Ord2 Baso ABS# SP 0.0 K/ul 04/09/2017 SP Tsh Ord6 hTSH II SP 1.04 uIU/mL 04/09/2017 SP Comp Metabolic Wma922 NA SP 140 mEq/L 04/09/2017 SP Comp Metabolic Koa935 K SP 3.7 mEq/L 04/09/2017 SP Comp Metabolic Zos057 CL SP 104 mEq/L 04/09/2017 SP Comp Metabolic Kzt986 CO2 SP 28.0 mEq/L 04/09/2017 SP Comp Metabolic Lox525 AN ION GAP SP 12 04/09/2017 SP Comp Metabolic Yai663 GL UCOSE SP 133 mg/dL 04/09/2017 SP Comp Metabolic Imt133 Cr eat SP 0.6 mg/dL 04/09/2017 SP Comp Metabolic Qxe265 eG FR SP 114 ml/min/1.73m2 06/2017 SP Comp Metabolic Msz038 BUN SP 13 mg/dL 04/09/2017 SP Comp Metabolic Kfo737 B/ C Ratio SP 23.2 Ratio 04/09/2017 SP Comp Metabolic Xcd032 CA LCIUM SP 9.2 mg/dL 04/09/2017 SP Comp Metabolic Hkx926 AL K PHOS SP 53 U/L 04/09/2017 SP Comp Metabolic Snj459 T(SGOT) SP 21 U/L 04/09/2017 SP Comp Metabolic Vtp521 AL T(SGPT) SP 18 U/L 04/09/2017 SP Comp Metabolic Wlc961 BI LI T SP 0.4 mg/dL 04/09/2017 SP Comp Metabolic Eby830 AL BUMIN SP 4.0 g/dL 04/09/2017 SP Comp Metabolic Mbd754 TP RO SP 7.0 g/dL 04/09/2017 SP Comp Metabolic Kyn663 GL OB SP 3.0 g/dL 04/09/2017 SP Comp Metabolic Eun328 A/ G Ratio SP 1.4 Ratio 04/09/2017 SP Comp Metabolic Krv676 Os mo SP 281 mOsmo 04/09/2017 SP [...] ADMIN PNEUMOCOCCAL V ACCINE SP SNOMED CT: 56854797 SPCPT-4: G0009 10/13/2017 SP Pneumococcal Polysac charide Vaccine, 23-Valent, Ad SP CPT-4: 06679 10/13/2017 SP ADMIN PNEUMOCOCCAL V ACCINE SP SNOMED CT: 46550250 SPCPT-4: G0009 12/10/2016 SP PNEUMOCOCCAL VACC 13 NORY IM SP SNOMED CT: 71645027 SPCPT-4: 06556 12/10/2016 SP TRIAMCINOLONE ACET I [place] NOS SP CPT-4: J3301 05/14/2016 SP DRAIN/INJECT JOINT/B URSA SP CPT-4: 90511 05/14/2016 SP PPPS, SUBSEQ VISIT CPT- SP [...] 1: SP Code: 8480-6 BMI: SP Code: 93833-3 Heart SP 1: 89 bpm Height: SP [...] 07/21/2016 recent pneumonia- SP in ER in [place] cough [facility] SP 06/20/2016 None SP cough Quality constant [...] Performer Loca tion POS Codes Date POS [id number]) 38985 EST. P ATIENT, LEVEL III SPDiagnosis: Essential (primary) hypertension[ICD10: I10] Diagnosis: Primary generalized (osteo)arthritis[ICD10: M15.0] Naheed Wang MD, [facility] SP CPT-4: 45391 02/22/2019 [place] [phone]) 53006 EST. P ATIENT, LEVEL III SPDiagnosis: Essential (primary) hypertension[ICD10: I10] Diagnosis: Fibromyalgia[ICD10: M79.7] Diagnosis: Primary generalized (osteo)arthritis[ICD10: M15.0] Naheed Wang MD, [facility] SP CPT-4: 56231 07/15/2018 [place] [phone]) 34730 EST. P ATIENT, LEVEL IV SPDiagnosis: Essential (primary) hypertension[ICD10: I10] Diagnosis: Fibromyalgia[ICD10: M79.7] Diagnosis: Primary generalized (osteo)arthritis[ICD10: M15.0] Naheed Wang MD, [facility] SP CPT-4: 67724 06/14/2018 [place] [address]) 46668 EST. P ATIENT, LEVEL IV SPDiagnosis: Encounter for general adult medical examination with abnormal findings[ICD10: Z00.01] Diagnosis: Essential (primary) hypertension[ICD10: I10] Diagnosis: Nonscarring hair loss, unspecified[ICD10: L65.9] Naheed Wang MD, [facility] CPT-4: 80372 04/09/2017 SP ([id number]) 61575 EST. P ATIENT, LEVEL III SPDiagnosis: Essential (primary) hypertension[ICD10: I10] Diagnosis: Acute recurrent maxillary sinusitis[ICD10: J01.01] Naheed Wang MD, [facility] CPT-4: 90530 11/27/2016 SP ([id number]) 15518 EST. P ATIENT, LEVEL IV SPDiagnosis: Dyspnea, unspecified[ICD10: R06.00] Diagnosis: Snoring[ICD10: R06.83] Diagnosis: Cough[ICD10: R05] Diagnosis: Personal history of nicotine dependence[ICD10: Z87.891] Diagnosis: Hypersomnia, unspecified[ICD10: G47.10] Naheed Wang MD, [facility] CPT-4: 00197 07/21/2016 SP ([id number]) 81010 EST. P ATIENT, LEVEL III SPDiagnosis: Cough[ICD10: R05] Diagnosis: Other effects of high altitude, initial encounter[ICD10: T70.29XA] Naheed LEON MD, [facility] CPT-4: 81207 06/20/2016 SP (39558) 69520 EST. P ATIENT, LEVEL III SPDiagnosis: Pain in left wrist[ICD10: M25.532] Diagnosis: Pain in left finger(s)[ICD10: M79.645] Diagnosis: Primary osteoarthritis, left hand[ICD10: M19.042] Jasmin Wang MD, [facility] CPT-4: 10255 05/14/[place] [address] EST. PATIENT, LEVEL III SPDiagnosis: Pain in left wrist[ICD10: M25.532] Diagnosis: Pain in left finger(s)[ICD10: M79.645] Clau Wang MD, [facility] SP4: 29086 04/23/2016 SP (07904) 61559 EST. P ATIENT, LEVEL II SPDiagnosis: INSECT BITE NEC-INFECTED[ICD9: 919.5] [facility] SP4: 94173 05/14/2015 SP ([id number]) OFFICE JORGE BAZZI - LEVEL 3 SPDiagnosis: [...] 02/22/2019 SP Care Plan: SCREENINGMAMMOGRAPHYDIGITAL SP : [id number] Pending 02/22/2019 SP Visit Plan: Hypertension - [...] today 07/15/2018 SP Appointment: Naheed Smith SPWPtel: [address] [place], [place] [id number] (15 min) Moderate SP 07/15/2018 SP Patient [...] of plan. 06/14/2018 SP Appointment: Naheed SmithPtel[phone] (30 min) Complex SP 06/14/2018 SP Patient Education: Patient Medication Summary SP Completed 06/14/2018 SP Care Plan: COMPLETE CBC AUTOMATED LOINC : SP Pending 06/14/2018 SP Care Plan: SCREENINGMAMMOGRAPHYDIGITAL SP : 05202-3 Pending 06/14/2018 SP Appointment: Injection SP 10/13/2017 [...] TSH 04/09/2017 SP [facility]ment: [facility] SmithPtel[facility] [phone] [facility] (30 min) Complex SP 04/09/2017 SP Patient [...] 11/27/2016 SP Appointment: Luis Naheed SPWPtel: [phone] [facility] [id number] (30 min) Complex SP 11/27/2016 SP Patient [...] : SP Pending 07/21/2016 SP Visit Plan: Efecb-ikcnvviif-skesrf zpack Altitude sickness- SP also improving-less SOA, [...] 05/14/2016 SP Appointment: [facility]tel[facility] [phone] [facility] [place] (15 min) Moderate SP 05/14/2016 [...] 04/23/2016 SP Appointment: Naheed Smith SPWPtel: [phone] [facility] [id number] [place] (30 min) Complex SP 04/23/2016 SP [...] colonoscopy with Dr. Mcneil. 04/18/2015 SP Appointment: [facility] - SP Wellness Visit 04/18/2015 SP Patient [...] for increased redness, swelling, warmth, discharge. . Fgyyx-gyvosacfg-jt nish zpack SP Altitude sickness-symptoms also improving-less SOA, less headache-instructed patient and to rest over the week-increase fluids and call Thursday if symptoms are not improved. Patient verbalized understanding of plan.
--- OUTSIDE RECORDS SUMMARY | 2019-10-18 12:49 | XMS REPORT | CCD ---
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 Name Role Phone POS PP Unavailable SP CCM Unavailable SP Summary Purpose Interface Exchange Insurance Providers Payer name Policy type / Coverage type POS alliance party ID Effective Begin Date Effective POS Date [facility] Medicare Part B POS Unknown Unknown SP [...] Effective Dates POS Tobacco history SNOMED CT: 6130895 Quit less SPthan 5 years ago 04/19/2015 SP Marital status Unknown M arried SP 01/30/2015 SP Number of children Unknown 2 SP 01/30/2015 SP Number of years using tobacco Unknown 20 SP 01/30/[address]: 655648 Currently SP alcohol 01/30/2015 SP Frequency of drinks SNOMED CT: 658705730 7 SP per week 01/30/2015 SP Has the patient ever used illegal drugs? Unknown SP Has never used illegal drugs 015 SP Allergies, Adverse Reactions, Alerts Substance Reaction Codes POS Date Inactivated Date Status POS * NO KNOWN FOOD HEDII RGIES POS Unknown 01/30/2015 SP Inactive Date [...] SPICD-10: I10 Active 11/27/2016 SP Unknown SP Fibromyalgia ICD-9: SP ICD-10: M79.7 Active 06/14/2018 SP Unknown SP Primary generalized (osteo)arthritis SP ICD-9: 715.09 SPICD-10: M15.0 Active 06/14/2018 SP Unknown SP Encounter for [...] ICD-9: 401.1 SPICD-10: I10 11/27/2016 Active SP Fibromyalgia ICD-9: SP ICD-10: M79.7 06/14/2018 Active SP Primary generalized (osteo)arthritis SP ICD-9: 715.09 SPICD-10: M15.0 06/14/2018 Active SP Encounter for immuni zation [...] tions POS Start Date Stop Date Sta s POS Fill Instructions POS tramadol 50 mg tablet SP 958579 1-2 Tablet(s) PO Q4-6H as needed SP No Stop Date Active SP hydrochlorothiazide 25 mg tablet SP RxNorm: 741146 1 TABLET(S) PO DAILY SP 01/10/2019 06/08/2019 Ac tive SP SP lisinopril 10 mg tablet SP 403181 1 TABLET(S) PO DAILY 12/16/2018 SP 09/11/2019 Active SP Cymbalta 60 mg capsu le,delayed release SP RxNorm: 571502 1 CAPSULE(S) PO DAILY SP 12/16/2018 12/10/2019 Ac tive SP SP tramadol 50 mg tablet SP 094012 1-2 Tablet(s) PO Q4-6H as needed SP 02/13/2019 Inactive SP Vivelle-Dot 0.05 mg/ 24 hr transdermal patch SP RxNorm: 387090 1 PATCH TD BIW SP 09/17/2018 09/11/2019 Ac tive SP 1 patch twice weekly SP tramadol 50 mg tablet SP 657873 1-2 Tablet(s) PO Q4-6H as needed SP 11/28/2018 Inactive SP hydrochlorothiazide 25 mg tablet SP RxNorm: 105811 1 TABLET(S) PO DAILY SP 08/20/2018 01/09/2019 In active SP SP lisinopril 10 mg tablet SP 940815 1 Tablet(s) PO daily 07/15/2018 SP 12/15/2018 Inactive SP Cymbalta 60 mg capsu le,delayed release SP RxNorm: 001664 1 Capsule(s) PO daily SP 07/15/2018 12/15/2018 In active SP SP Cymbalta 60 mg capsu le,delayed release SP RxNorm: 314330 1 Capsule(s) PO daily SP 07/08/2018 07/14/2018 In active SP SP Cymbalta 30 mg capsu le,delayed release SP RxNorm: 190240 1 Capsule(s) PO daily SP 06/14/2018 07/07/2018 In active SP SP hydrochlorothiazide 25 mg tablet SP RxNorm: 116428 1 TABLET(S) PO DAILY SP 04/08/2018 06/13/2018 In active SP SP Vivelle-Dot 0.05 mg/ 24 hr transdermal patch SP RxNorm: 645811 1 PATCH TD BIW SP 11/19/2017 09/16/2018 In active SP 1 patch twice weekly SP hydrochlorothiazide 25 mg tablet SP RxNorm: 497288 1 TABLET(S) PO DAILY SP 10/29/2017 03/27/2018 In active SP SP hydrochlorothiazide 25 mg tablet SP RxNorm: 525101 1 Tablet(s) PO daily SP 05/18/2017 10/28/2017 In active SP SP vitamin [id number] ac id 2.5 mg-0.8 mg oral sublingual tablet SP RxNorm: 877368 1000mcg SP PO daily 04/09/2017 No Stop Date SP Active SP Vivelle-Dot 0.05 mg/ 24 hr transdermal patch SP RxNorm: 823820 1 PATCH TD BIW SP 01/01/2017 11/18/2017 In active SP 1 patch twice weekly SP omeprazole 40 mg cap parul,delayed release SP RxNorm: 593166 1 Capsule(s) PO daily SP 11/27/2016 12/26/2016 In active SP SP Levaquin 500 mg tablet SP 298844 1 Tablet(s) PO daily 11/27/2016 SP 12/03/2016 Inactive SP hydrochlorothiazide 25 mg tablet SP RxNorm: 170311 1 Tablet(s) PO daily SP 11/27/2016 05/17/2017 In active SP SP Voltaren 1 % topical gel SP RxNorm: 151997 2 Gram(s) TOP QID SP 07/12/2016 Inactive SP prednisone 10 mg tablet SP 954719 Tablet(s) PO UD 04/23/2016 SP 04/08/2017 Inactive SP Vivelle-Dot 0.05 mg/ 24 hr transdermal patch SP RxNorm: 559286 1 PATCH TD BIW SP 01/28/2016 12/31/2016 In active SP 1 patch twice weekly SP Bactrim DS 800 mg-16 0 mg tablet SP RxNorm: 109265 1 Tablet(s) PO BID SP 05/20/2015 Inactive SP Culturelle 10 billio n cell capsule SP RxNorm: 922031 1 Capsule(s) PO daily SP 05/14/2015 06/12/2015 In active SP SP Vitamin D3 1,000 uni t tablet SP RxNorm: 819844 5 (5000) Tablet(s) PO daily SP 04/18/2015 04/08/2017 In active SP SP Premarin 0.625 mg/gr am vaginal cream SP RxNorm: 820431 1 Gram(s) VAG 2 times weekly SP 02/22/2015 02/21/2015 SP SP Chantix 1 mg tablet SP 374619 1 Tablet(s) PO BID 02/22/2015 SP 02/21/2015 Inactive SP Chantix 1 mg tablet SP 793767 1 Tablet(s) PO BID 02/22/2015 SP 04/22/2015 Inactive [[facility]AHIDA INGS SP NON-COVERED DRUGS -- BIN:[id number], PCN: [id number], Group: XXXXX, ID# [id number], Questions: . THIS IS NOT INSURANCE.] Premarin 0.625 mg/gr am vaginal cream SP RxNorm: 618522 1 Gram(s) VAG 2 times weekly SP 02/22/2015 09/19/2015 SP [SAVINGS FOR NON-COVERED DRUGS -- BIN:[id number] 3585, PCN: [id number], SPGroup: XXXXX, ID# [id number], Questions: . THIS IS NOT INSURANCE.] magnesium RxNorm: SP 900 PO daily 01/30/2015 SP Inactive [SAVINGS FOR NON-COVERED DR UGS SP BIN:[id number], PCN: ASPROD1, Group: XXXXX, ID# [id number], Questions: . THIS IS NOT INSURANCE.] Vivelle-Dot 0.05 mg/ 24 hr transdermal patch SP RxNorm: 798292 2 TD QW SP 01/29/2015 Inactive SP Vivelle-Dot 0.05 mg/ 24 hr transdermal patch SP RxNorm: 876861 1 Patch TD BIW SP 01/30/2015 01/27/2016 In active SP 1 patch twice weekly SP Pataday 0.2 % eye drops SP 3333224 Drop(s) OPH daily No Start Date SP Active SP olive leaf extract oral SP oral No Start Date SP Active SP Flonase Allergy Reli ef 50 mcg/actuation nasal SP RxNorm: 1 to each nare SPSpray NASAL daily No Start Date SP Active SP Singulair 10 mg tablet SP 401847 1 Tablet(s) PO daily No Start Date SP Active SP hydrochlorothiazide 25 mg tablet SP RxNorm: 146722 1 Tablet(s) PO daily SP No Start Date Active SP coenzyme Q10 200 mg capsule SP RxNorm: 269230 2 Capsule(s) PO daily No SPStart Date Active SP Zyrtec 10 mg capsule SP 8173413 1 Capsule(s) PO daily No Start SP Active SP krill oil oral RxNorm: SP oral No Start Date SP [place] [address] oral No Start Date SP 04/08/2017 Inactive SP tramadol 50 mg tablet SP 652322 1-2 Tablet(s) PO Q4-6H as needed SP Start Date 09/06/2018 Inactive SP SP magnesium oral RxNorm: SP oral No Start Date SP Inactive SP Kadi oral RxNorm: SP oral No Start Date SP Inactive SP B Complex 1 tablet SP 1 Tablet(s) PO daily No Start Date SP 04/08/2017 Inactive SP Vitamin D3 1,000 uni t tablet SP RxNorm: 709027 5 (5000) Tablet(s) PO daily SP No Start Date 04/17/2015 Inactive SP SP vitamin G05-[id number] ac id oral SP RxNorm: oral No Start D ate SP 04/08/2017 Inactive SP Calcium RxNorm: SP 1800 PO daily No Start Date SP Inactive SP Kadi-D 12 Hour oral SP 108160 oral No Start Date SP 01/29/2015 Inactive [...] (primary) hypertension ICD -10: I10 POSICD-9: 401.1 07/15/2018 SP Primary generalized (osteo)arthritis ICD-10: M15.0 SPICD-9: 715.09 07/15/2018 SP Fibromyalgia ICD-10: M79.7 SPICD-9: 729.1 07/15/2018 [...] For Visit Effective Dates Notes POS hypertension 07/15/2018 POS hypertension 06/14/2018 pain SP vaccination against pneumonia [...] Item Code Result Date POS Comp Metabolic Hlv995 NA POS 140 mEq/L 06/25/2018 SP Comp Metabolic Ahe394 K SP 3.5 mEq/L 06/25/2018 SP Comp Metabolic Lqg403 CL SP 101 mEq/L 06/25/2018 SP Comp Metabolic Pil125 CO2 SP 29.0 mEq/L 06/25/2018 SP Comp Metabolic Dhb059 AN ION GAP SP 14 06/25/2018 SP Comp Metabolic Jju452 GL UCOSE SP 107 mg/dL 06/25/2018 SP Comp Metabolic Tsu305 Cr eat SP 0.6 mg/dL 06/25/2018 SP Comp Metabolic Rky976 eG FR SP 103 ml/min/1.73m2 06/03 SP Comp Metabolic Jto923 BUN SP 10 mg/dL 06/25/2018 SP Comp Metabolic Jmm742 B/ C Ratio SP 16.4 Ratio 06/25/2018 SP Comp Metabolic Uzw499 CA LCIUM SP 9.1 mg/dL 06/25/2018 SP Comp Metabolic Lua041 AL K PHOS SP 65 U/L 06/25/2018 SP Comp Metabolic Amj661 T(SGOT) SP 17 U/L 06/25/2018 SP Comp Metabolic Add213 AL T(SGPT) SP 13 U/L 06/25/2018 SP Comp Metabolic Srn302 BI LI T SP 0.5 mg/dL 06/25/2018 SP Comp Metabolic Cgu543 AL BUMIN SP 3.8 g/dL 06/25/2018 SP Comp Metabolic Uxl973 TP RO SP 6.6 g/dL 06/25/2018 SP Comp Metabolic Ibh904 GL OB SP 2.8 g/dL 06/25/2018 SP Comp Metabolic Gvj536 A/ G Ratio SP 1.3 Ratio 06/25/2018 SP Comp Metabolic Ilf049 Os mo SP 279 mOsmo 06/25/2018 SP [...] pg 06/25/2018 SP Cbc With Differential Ord2 [place]% SP 10.6 % 06/25/2018 SP Cbc With [...] K/ul 06/25/2018 SP Cbc With Differential Ord2 [place] ABS# SP 0.7 K/ul 06/25/2018 SP Cbc [...] pg 04/09/2017 SP Cbc With Differential Ord2 [place]% SP 7.9 % 04/09/2017 SP Cbc With [...] K/ul 04/09/2017 SP Cbc With Differential Ord2 [place] ABS# SP 0.7 K/ul 04/09/2017 SP Cbc With Differential Ord2 Eos ABS# SP 0.1 K/ul 04/09/2017 SP Cbc With Differential Ord2 Baso ABS# SP 0.0 K/ul 04/09/2017 SP Tsh Ord6 hTSH II SP 1.04 uIU/mL 04/09/2017 SP Comp Metabolic Uqs543 NA SP 140 mEq/L 04/09/2017 SP Comp Metabolic Fgy297 K SP 3.7 mEq/L 04/09/2017 SP Comp Metabolic Pob299 CL SP 104 mEq/L 04/09/2017 SP Comp Metabolic Spc916 CO2 SP 28.0 mEq/L 04/09/2017 SP Comp Metabolic Kat105 AN ION GAP SP 12 04/09/2017 SP Comp Metabolic Kao513 GL UCOSE SP 133 mg/dL 04/09/2017 SP Comp Metabolic Rgx553 Cr eat SP 0.6 mg/dL 04/09/2017 SP Comp Metabolic Tdd015 eG FR SP 114 ml/min/1.73m2 06/2017 SP Comp Metabolic Bic457 BUN SP 13 mg/dL 04/09/2017 SP Comp Metabolic Fyd909 B/ C Ratio SP 23.2 Ratio 04/09/2017 SP Comp Metabolic Wld625 CA LCIUM SP 9.2 mg/dL 04/09/2017 SP Comp Metabolic Eti666 AL K PHOS SP 53 U/L 04/09/2017 SP Comp Metabolic Uxl172 T(SGOT) SP 21 U/L 04/09/2017 SP Comp Metabolic Fwr063 AL T(SGPT) SP 18 U/L 04/09/2017 SP Comp Metabolic Vdn188 BI LI T SP 0.4 mg/dL 04/09/2017 SP Comp Metabolic Jjb535 AL BUMIN SP 4.0 g/dL 04/09/2017 SP Comp Metabolic Ivh012 TP RO SP 7.0 g/dL 04/09/2017 SP Comp Metabolic Fmb696 GL OB SP 3.0 g/dL 04/09/2017 SP Comp Metabolic Tuv089 A/ G Ratio SP 1.4 Ratio 04/09/2017 SP Comp Metabolic Xym048 Os mo SP 281 mOsmo 04/09/2017 SP Review of Systems System Result Effective Dates POS Constitutional No recent illness 07/15/2018 POS Constitutional No anorexia 07/15/2018 SP Constitutional No [...] ADMIN PNEUMOCOCCAL V ACCINE SP SNOMED CT: 01492469 SPCPT-4: G0009 10/13/2017 SP Pneumococcal Polysac charide Vaccine, 23-Valent, Ad SP CPT-4: 09571 10/13/2017 SP ADMIN PNEUMOCOCCAL V ACCINE SP SNOMED CT: 43300131 SPCPT-4: G0009 12/10/2016 SP PNEUMOCOCCAL VACC 13 NORY IM SP SNOMED CT: 46074067 SPCPT-4: 72722 12/10/2016 SP TRIAMCINOLONE ACET I [place] NOS SP CPT-4: J3301 05/14/2016 SP DRAIN/INJECT JOINT/B URSA SP CPT-4: 36652 05/14/2016 SP PPPS, SUBSEQ VISIT CPT- SP G0439 04/18/2015 SP Vital Signs Date Vital POS 07/15/2018 Blood Pressure 1: 146/90 Code: SP6 [...] 1: SP Code: 8480-6 BMI: SP Code: 05379-3 Heart SP 1: 89 bpm Height: SP [...] Notes POS hypertension Quality chr onic SP 07/15/2018 None [...] 07/21/2016 recent pneumonia- SP in ER in [place] cough Location in the [place] SP [...] Performer Loca tion POS Codes Date POS [id number]) [id number] EST. P ATIENT, LEVEL III SPDiagnosis: Essential (primary) hypertension[ICD10: I10] Diagnosis: Fibromyalgia[ICD10: M79.7] Diagnosis: Primary generalized (osteo)arthritis[ICD10: M15.0] Naheed Wang MD, [facility] CPT-4: 22377 07/15/2018 SP [id number]) 88031 EST. P ATIENT, LEVEL IV SPDiagnosis: Essential (primary) hypertension[ICD10: I10] Diagnosis: Fibromyalgia[ICD10: M79.7] Diagnosis: Primary generalized (osteo)arthritis[ICD10: M15.0] Naheed Wang MD, [facility] CPT-4: 44506 06/14/2018 SP [id number]) 52661 EST. P ATIENT, LEVEL IV SPDiagnosis: Encounter for general adult medical examination with abnormal findings[ICD10: Z00.01] Diagnosis: Essential (primary) hypertension[ICD10: I10] Diagnosis: Nonscarring hair loss, unspecified[ICD10: L65.9] Naheed Wang MD, [facility] CPT-4: 25228 04/09/2017 SP [id number]) 41599 EST. P ATIENT, LEVEL III SPDiagnosis: Essential (primary) hypertension[ICD10: I10] Diagnosis: Acute recurrent maxillary sinusitis[ICD10: J01.01] Naheed Wang MD, [facility] CPT-4: 39710 11/27/2016 SP ([id number]) 68345 EST. P ATIENT, LEVEL IV SPDiagnosis: Dyspnea, unspecified[ICD10: R06.00] Diagnosis: Snoring[ICD10: R06.83] Diagnosis: Cough[ICD10: R05] Diagnosis: Personal history of nicotine dependence[ICD10: Z87.891] Diagnosis: Hypersomnia, unspecified[ICD10: G47.10] Naheed Wang MD, [facility] CPT-4: 67663 07/21/2016 SP ([id number]) 48107 EST. P ATIENT, LEVEL III SPDiagnosis: Cough[ICD10: R05] Diagnosis: Other effects of high altitude, initial encounter[ICD10: T70.29XA] Naheed LEON MD, [facility] CPT-4: 42139 06/20/2016 SP ([id number]) 07702 EST. P ATIENT, LEVEL III SPDiagnosis: Pain in left wrist[ICD10: M25.532] Diagnosis: Pain in left finger(s)[ICD10: M79.645] Diagnosis: Primary osteoarthritis, left hand[ICD10: M19.042] [facility], [facility] SP CPT-4: 61738 05/14/2016 [place] [id number] EST. PATIENT, LEVEL III SPDiagnosis: Pain in left wrist[ICD10: M25.532] Diagnosis: Pain in left finger(s)[ICD10: M79.645] Clau Wang MD, [facility] SP4: 24160 04/23/2016 SP ([id number]) 28654 EST. P ATIENT, LEVEL II SPDiagnosis: INSECT BITE NEC-INFECTED[ICD9: 919.5] Nati Wang MD, [facility] SP4: 05394 05/14/2015 SP ([id number]) OFFICE VISI T, NEW - LEVEL 3 SPDiagnosis: Tobacco use[ICD9: 305.1] Diagnosis: Vaginal dryness, menopausal[ICD9: 627.2] Diagnosis: ALLERGIC RHINITIS[ICD9: 477.9] CAROLYN Wang MD, [facility] CPT-4: SP 01/30/2015 SP Plan of Care Planned Activity Notes C odes POS Status Date POS Visit Plan: Hypertension - uncontro lled - [...] today 07/15/2018 SP Appointment: Naheed Smith SPWPtel[id number] (15 min) Moderate SP 07/15/2018 SP Patient [...] understanding of plan. 06/14/2018 SP Appointment: Naheed SmithWPtel: [address] [place], [place] [phone] (30 min) Complex SP 06/14/2018 SP Patient Education: Patient Medication Summary SP Completed 06/14/2018 SP Care Plan: COMPLETE CBC AUTOMATED LOINC : SP Pending 06/14/2018 SP Care Plan: SCREENINGMAMMOGRAPHYDIGITAL SP : 02740-4 Pending 06/14/2018 SP Appointment: Injection SP 10/13/2017 [...] TSH 04/09/2017 SP Appointment: Naheed Smith SPWPtel[phone] (30 min) Complex SP 04/09/2017 SP [...] 11/27/2016 SP Appointment: Naheed Smith SPWPtel[facility] [phone] [phone] (30 min) Complex SP 11/27/2016 SP Patient [...] : SP Pending 07/21/2016 SP Visit Plan: Gijrk-kqyeluuaw-kzzxji zpack Altitude sickness- SP also improving-less SOA, [...] surgery 05/14/2016 SP Appointment: Jasmin Wang SPWPtel: [id number] [place] (15 min) Moderate SP 05/14/2016 SP [...] concerns. 04/23/2016 SP Appointment: Naheed Smith SPWPtel: [phone] [place] (30 min) Complex SP 04/23/2016 SP [...] colonoscopy with Dr. Mcneil. 04/18/2015 SP Appointment: [facility] - SP Wellness Visit 04/18/2015 [...] for increased redness, swelling, warmth, discharge. . Zrddk-wseckdask-ia nish zpack SP Altitude sickness-symptoms also improving-less SOA, less headache-instructed patient and to rest over the week-increase fluids and call Thursday if symptoms are not improved. Patient verbalized understanding of plan.
--- OUTSIDE RECORDS SUMMARY | 2019-10-18 12:51 | XMS REPORT | CCD ---
Author Author Naheed Smith POS Organization [facility] SP Address [address] [place] [address] Phone SP Care Team Providers Care Private Tutor Name Role Phone POS PP Unavailable SP CCM Unavailable SP Summary Purpose Interface Exchange Insurance Providers Payer name Policy type / Coverage type POS constitution party ID Effective Begin Date Effective POS Date [facility] Medicare Part B POS Unknown Unknown SP [...] Effective Dates POS Tobacco history SNOMED CT: 1481930 Quit less SPthan 5 years ago 04/19/2015 SP Marital status Unknown M arried SP 01/30/2015 SP Number of children Unknown 2 SP 01/30/2015 SP Number of years using tobacco Unknown 20 SP 01/30/[address]: 656468 Currently SP alcohol 01/30/2015 SP Frequency of drinks SNOMED CT: 597641515 7 SP per week 01/30/2015 SP Has [...] POS hydrochlorothiazide 25 mg tablet SP RxNorm: 154097 1 TABLET(S) PO DAILY SP 01/10/2019 06/08/2019 Ac tive SP SP lisinopril 10 mg tablet SP 830737 1 TABLET(S) PO DAILY 12/16/2018 SP 09/11/2019 Active SP Cymbalta 60 mg capsu le,delayed release SP RxNorm: 011965 1 CAPSULE(S) PO DAILY SP 12/16/2018 12/10/2019 Ac tive SP SP tramadol 50 mg tablet SP 070670 1-2 Tablet(s) PO Q4-6H as needed SP 02/13/2019 Inactive SP Vivelle-Dot 0.05 mg/ 24 hr transdermal patch SP RxNorm: 835499 1 PATCH TD BIW SP 09/17/2018 09/11/2019 Ac tive SP 1 patch twice weekly SP tramadol 50 mg tablet SP 354808 1-2 Tablet(s) PO Q4-6H as needed SP 11/28/2018 Inactive SP hydrochlorothiazide 25 mg tablet SP RxNorm: 011180 1 TABLET(S) PO DAILY SP 08/20/2018 01/09/2019 In active SP SP lisinopril 10 mg tablet SP 031201 1 Tablet(s) PO daily 07/15/2018 SP 12/15/2018 Inactive SP Cymbalta 60 mg capsu le,delayed release SP RxNorm: 915279 1 Capsule(s) PO daily SP 07/15/2018 12/15/2018 In active SP SP Cymbalta 60 mg capsu le,delayed release SP RxNorm: 977953 1 Capsule(s) PO daily SP 07/08/2018 07/14/2018 In active SP SP Cymbalta 30 mg capsu le,delayed release SP RxNorm: 380141 1 Capsule(s) PO daily SP 06/14/2018 07/07/2018 In active SP SP hydrochlorothiazide 25 mg tablet SP RxNorm: 238059 1 TABLET(S) PO DAILY SP 04/08/2018 06/13/2018 In active SP SP Vivelle-Dot 0.05 mg/ 24 hr transdermal patch SP RxNorm: 331346 1 PATCH TD BIW SP 11/19/2017 09/16/2018 In active SP 1 patch twice weekly SP hydrochlorothiazide 25 mg tablet SP RxNorm: 770493 1 TABLET(S) PO DAILY SP 10/29/2017 03/27/2018 In active SP SP hydrochlorothiazide 25 mg tablet SP RxNorm: 962224 1 Tablet(s) PO daily SP 05/18/2017 10/28/2017 In active SP SP vitamin X46-kezxt ac id 2.5 mg-0.8 mg oral sublingual tablet SP RxNorm: 020855 1000mcg SP PO daily 04/09/2017 No Stop Date SP Active SP Vivelle-Dot 0.05 mg/ 24 hr transdermal patch SP RxNorm: 743540 1 PATCH TD BIW SP 01/01/2017 11/18/2017 In active SP 1 patch twice weekly SP omeprazole 40 mg cap parul,delayed release SP RxNorm: 113711 1 Capsule(s) PO daily SP 11/27/2016 12/26/2016 In active SP SP Levaquin 500 mg tablet SP 256940 1 Tablet(s) PO daily 11/27/2016 SP 12/03/2016 Inactive SP hydrochlorothiazide 25 mg tablet SP RxNorm: 646547 1 Tablet(s) PO daily SP 11/27/2016 05/17/2017 In active SP SP Voltaren 1 % topical gel SP RxNorm: 669154 2 Gram(s) TOP QID SP 07/12/2016 Inactive SP prednisone 10 mg tablet SP 746236 Tablet(s) PO UD 04/23/2016 SP 04/08/2017 Inactive SP Vivelle-Dot 0.05 mg/ 24 hr transdermal patch SP RxNorm: 158979 1 PATCH TD BIW SP 01/28/2016 12/31/2016 In active SP 1 patch twice weekly SP Bactrim DS 800 mg-16 0 mg tablet SP RxNorm: 992768 1 Tablet(s) PO BID SP 05/20/2015 Inactive SP Culturelle 10 billio n cell capsule SP RxNorm: 509090 1 Capsule(s) PO daily SP 05/14/2015 06/12/2015 In active SP SP Vitamin D3 1,000 uni t tablet SP RxNorm: 637431 5 (5000) Tablet(s) PO daily SP 04/18/2015 04/08/2017 In active SP SP Premarin 0.625 mg/gr am vaginal cream SP RxNorm: 562721 1 Gram(s) VAG 2 times weekly SP 02/22/2015 02/21/2015 SP SP Chantix 1 mg tablet SP 309286 1 Tablet(s) PO BID 02/22/2015 SP 02/21/2015 Inactive SP Chantix 1 mg tablet SP 751303 1 Tablet(s) PO BID 02/22/2015 SP 04/22/2015 Inactive [[facility] INGS SP NON-COVERED DRUGS -- BIN:070551, PCN: ASPROD1, Group: XXXXX, ID# [id number], Questions: . THIS IS NOT INSURANCE.] Premarin 0.625 mg/gr am vaginal cream SP RxNorm: 690802 1 Gram(s) VAG 2 times weekly SP 02/22/2015 09/19/2015 SP [SAVINGS FOR NON-COVERED DRUGS -- BIN:00 3585, PCN: ASPROD1, SPGroup: XXXXX, ID# [id number], Questions: . THIS IS NOT INSURANCE.] magnesium RxNorm: SP 900 PO daily 01/30/2015 SP Inactive [SAVINGS FOR NON-COVERED DR UGS SP BIN:933710, PCN: ASPROD1, Group: XXXXX, ID# [id number], Questions: . THIS IS NOT INSURANCE.] Vivelle-Dot 0.05 mg/ 24 hr transdermal patch SP RxNorm: 381446 2 TD QW SP 01/29/2015 Inactive SP Vivelle-Dot 0.05 mg/ 24 hr transdermal patch SP RxNorm: 838416 1 Patch TD BIW SP 01/30/2015 01/27/2016 In active SP 1 patch twice weekly SP Pataday 0.2 % eye drops SP 5020861 Drop(s) OPH daily No Start Date SP Active SP olive leaf extract oral SP oral No Start Date SP Active SP Flonase Allergy Reli ef 50 mcg/actuation nasal SP RxNorm: 1 to each nare SPSpray NASAL daily No Start Date SP Active SP Singulair 10 mg tablet SP 024146 1 Tablet(s) PO daily No Start Date SP Active SP hydrochlorothiazide 25 mg tablet SP RxNorm: 833918 1 Tablet(s) PO daily SP No Start Date Active SP coenzyme Q10 200 mg capsule SP RxNorm: 954703 2 Capsule(s) PO daily No SPStart Date Active SP Zyrtec 10 mg capsule SP 9854311 1 Capsule(s) PO daily No Start SP Active SP krill oil oral RxNorm: SP oral No Start Date SP [place] [address] oral No Start Date SP 04/08/2017 Inactive SP tramadol 50 mg tablet SP 725856 1-2 Tablet(s) PO Q4-6H as needed SP Start Date 09/06/2018 Inactive SP SP magnesium oral RxNorm: SP oral No Start Date SP Inactive SP Kadi oral RxNorm: SP oral No Start Date SP Inactive SP B Complex 1 tablet SP 1 Tablet(s) PO daily No Start Date SP 04/08/2017 Inactive SP Vitamin D3 1,000 uni t tablet SP RxNorm: 423505 5 (5000) Tablet(s) PO daily SP No Start Date 04/17/2015 Inactive SP SP vitamin J85-whmxv ac id oral SP RxNorm: oral No Start D ate SP 04/08/2017 Inactive SP Calcium RxNorm: SP 1800 PO daily No Start Date SP Inactive SP Kadi-D 12 Hour oral SP 259177 oral No Start Date SP 01/29/2015 Inactive [...] Item Code Result Date POS Comp Metabolic Uey843 NA POS 140 mEq/L 06/25/2018 SP Comp Metabolic Uhg630 K SP 3.5 mEq/L 06/25/2018 SP Comp Metabolic Mqp509 CL SP 101 mEq/L 06/25/2018 SP Comp Metabolic Uwo396 CO2 SP 29.0 mEq/L 06/25/2018 SP Comp Metabolic Rwj619 AN ION GAP SP 14 06/25/2018 SP Comp Metabolic Bzb363 GL UCOSE SP 107 mg/dL 06/25/2018 SP Comp Metabolic Xuj786 Cr eat SP 0.6 mg/dL 06/25/2018 SP Comp Metabolic Fxn203 eG FR SP 103 ml/min/1.73m2 06/03 SP Comp Metabolic Cko387 BUN SP 10 mg/dL 06/25/2018 SP Comp Metabolic Bdm843 B/ C Ratio SP 16.4 Ratio 06/25/2018 SP Comp Metabolic Nkj406 CA LCIUM SP 9.1 mg/dL 06/25/2018 SP Comp Metabolic Imz876 AL K PHOS SP 65 U/L 06/25/2018 SP Comp Metabolic Egl011 T(SGOT) SP 17 U/L 06/25/2018 SP Comp Metabolic Ygk236 AL T(SGPT) SP 13 U/L 06/25/2018 SP Comp Metabolic Uge158 BI LI T SP 0.5 mg/dL 06/25/2018 SP Comp Metabolic Ivi135 AL BUMIN SP 3.8 g/dL 06/25/2018 SP Comp Metabolic Uas050 TP RO SP 6.6 g/dL 06/25/2018 SP Comp Metabolic Xuz259 GL OB SP 2.8 g/dL 06/25/2018 SP Comp Metabolic Gkj152 A/ G Ratio SP 1.3 Ratio 06/25/2018 SP Comp Metabolic Zkr966 Os mo SP 279 mOsmo 06/25/2018 SP [...] pg 06/25/2018 SP Cbc With Differential Ord2 [place]% SP 10.6 % 06/25/2018 SP Cbc With [...] K/ul 06/25/2018 SP Cbc With Differential Ord2 [place] ABS# SP 0.7 K/ul 06/25/2018 SP Cbc [...] pg 04/09/2017 SP Cbc With Differential Ord2 [place]% SP 7.9 % 04/09/2017 SP Cbc With [...] K/ul 04/09/2017 SP Cbc With Differential Ord2 [place] ABS# SP 0.7 K/ul 04/09/2017 SP Cbc With Differential Ord2 Eos ABS# SP 0.1 K/ul 04/09/2017 SP Cbc With Differential Ord2 Baso ABS# SP 0.0 K/ul 04/09/2017 SP Tsh Ord6 hTSH II SP 1.04 uIU/mL 04/09/2017 SP Comp Metabolic Udy390 NA SP 140 mEq/L 04/09/2017 SP Comp Metabolic Nhv712 K SP 3.7 mEq/L 04/09/2017 SP Comp Metabolic Xrr947 CL SP 104 mEq/L 04/09/2017 SP Comp Metabolic Pkm622 CO2 SP 28.0 mEq/L 04/09/2017 SP Comp Metabolic Civ749 AN ION GAP SP 12 04/09/2017 SP Comp Metabolic Nik655 GL UCOSE SP 133 mg/dL 04/09/2017 SP Comp Metabolic Lcs111 Cr eat SP 0.6 mg/dL 04/09/2017 SP Comp Metabolic Ary056 eG FR SP 114 ml/min/1.73m2 06/2017 SP Comp Metabolic Zgs747 BUN SP 13 mg/dL 04/09/2017 SP Comp Metabolic Pkg933 B/ C Ratio SP 23.2 Ratio 04/09/2017 SP Comp Metabolic Rqa900 CA LCIUM SP 9.2 mg/dL 04/09/2017 SP Comp Metabolic Tic877 AL K PHOS SP 53 U/L 04/09/2017 SP Comp Metabolic Kaz282 T(SGOT) SP 21 U/L 04/09/2017 SP Comp Metabolic Yel503 AL T(SGPT) SP 18 U/L 04/09/2017 SP Comp Metabolic Dkm499 BI LI T SP 0.4 mg/dL 04/09/2017 SP Comp Metabolic Vny578 AL BUMIN SP 4.0 g/dL 04/09/2017 SP Comp Metabolic Khu467 TP RO SP 7.0 g/dL 04/09/2017 SP Comp Metabolic Vnt787 GL OB SP 3.0 g/dL 04/09/2017 SP Comp Metabolic Osj922 A/ G Ratio SP 1.4 Ratio 04/09/2017 SP Comp Metabolic Zmq796 Os mo SP 281 mOsmo 04/09/2017 SP [...] ADMIN PNEUMOCOCCAL V ACCINE SP SNOMED CT: 67010070 SPCPT-4: G0009 10/13/2017 SP Pneumococcal Polysac charide Vaccine, 23-Valent, Ad SP CPT-4: 44332 10/13/2017 SP ADMIN PNEUMOCOCCAL V ACCINE SP SNOMED CT: 26347092 SPCPT-4: G0009 12/10/2016 SP PNEUMOCOCCAL VACC 13 NORY IM SP SNOMED CT: 92013123 SPCPT-4: 44413 12/10/2016 SP TRIAMCINOLONE ACET I [place] NOS SP CPT-4: J3301 05/14/2016 SP DRAIN/INJECT JOINT/B URSA SP CPT-4: 20512 05/14/2016 SP PPPS, SUBSEQ VISIT CPT- SP [...] 1: SP Code: 8480-6 BMI: SP Code: 92389-3 Heart SP 1: 89 bpm Height: SP [...] 07/21/2016 recent pneumonia- SP in ER in [place] cough Location in the [place] SP [...] Performer Loca tion POS Codes Date POS [id number]) 23872 EST. [facility] SPDiagnosis: Essential (primary) hypertension[ICD10: I10] Diagnosis: Fibromyalgia[ICD10: M79.7] Diagnosis: Primary generalized (osteo)arthritis[ICD10: M15.0] Naheed Wang MD, [facility] CPT-4: 46063 07/15/2018 SP ([phone]) 93569 EST. P ATIENT, LEVEL IV SPDiagnosis: Essential (primary) hypertension[ICD10: I10] Diagnosis: Fibromyalgia[ICD10: M79.7] Diagnosis: Primary generalized (osteo)arthritis[ICD10: M15.0] Naheed Wang MD, [facility] CPT-4: 47880 06/14/2018 SP ([id number]) 36787 EST. P ATIENT, LEVEL IV SPDiagnosis: Encounter for general adult medical examination with abnormal findings[ICD10: Z00.01] Diagnosis: Essential (primary) hypertension[ICD10: I10] Diagnosis: Nonscarring hair loss, unspecified[ICD10: L65.9] Naheed Wang MD, [facility] CPT-4: 29054 04/09/2017 SP ([id number]) 27136 EST. P ATIENT, LEVEL III SPDiagnosis: Essential (primary) hypertension[ICD10: I10] Diagnosis: Acute recurrent maxillary sinusitis[ICD10: J01.01] Naheed Wang MD, [facility] CPT-4: 67155 11/27/2016 SP ([id number]) 13097 EST. P ATIENT, LEVEL IV SPDiagnosis: Dyspnea, unspecified[ICD10: R06.00] Diagnosis: Snoring[ICD10: R06.83] Diagnosis: Cough[ICD10: R05] Diagnosis: Personal history of nicotine dependence[ICD10: Z87.891] Diagnosis: Hypersomnia, unspecified[ICD10: G47.10] Naheed Wang MD, [facility] CPT-4: 26234 07/21/2016 SP ([id number]) 64110 EST. P ATIENT, LEVEL III SPDiagnosis: Cough[ICD10: R05] Diagnosis: Other effects of high altitude, initial encounter[ICD10: T70.29XA] Naheed LEON MD, [facility] CPT-4: 63023 06/20/2016 SP ([id number]) 57405 EST. P ATIENT, LEVEL III SPDiagnosis: Pain in left wrist[ICD10: M25.532] Diagnosis: Pain in left finger(s)[ICD10: M79.645] Diagnosis: Primary osteoarthritis, left hand[ICD10: M19.042] [facility] SP CPT-4: 65969 05/14/2016 [place] [address] EST. PATIENT, LEVEL III SPDiagnosis: Pain in left wrist[ICD10: M25.532] Diagnosis: Pain in left finger(s)[ICD10: M79.645] [facility] SP4: [id number] 04/23/2016 SP ([id number]) 37353 EST. P ATIENT, LEVEL II SPDiagnosis: INSECT BITE NEC-INFECTED[ICD9: 919.5] [facility] SP4: [id number] 05/14/2015 SP ([id number]) OFFICE VISI T, NEW - LEVEL 3 SPDiagnosis: Tobacco use[ICD9: 305.1] Diagnosis: Vaginal dryness, menopausal[ICD9: 627.2] Diagnosis: ALLERGIC RHINITIS[ICD9: 477.9] CAROLYN Wang MD, [facility] CPT-4: SP 01/30/2015 SP Plan of Care [...] today 07/15/2018 SP Appointment: Naheed Smith SPWPtel: [address] [place], [place] [phone] (15 min) Moderate SP 07/15/2018 SP Patient [...] plan. 06/14/2018 SP Appointment: Naheed Smith SPWPtel: [facility] [place] [phone] (30 min) Complex SP 06/14/2018 SP Patient Education: Patient Medication Summary SP Completed 06/14/2018 SP Care Plan: COMPLETE CBC AUTOMATED LOINC : SP Pending 06/14/2018 SP Care Plan: SCREENINGMAMMOGRAPHYDIGITAL SP : [id number] Pending 06/14/2018 SP Appointment: Injection SP 10/13/2017 [...] fatigue-check labs including TSH 04/09/2017 SP Appointment: LuisNaheed SPWPtel: [phone] [phone] (30 min) Complex SP 04/09/2017 SP [...] improvement. 11/27/2016 SP Appointment: Naheed Smith SPWPtel: [phone] (30 min) Complex SP 11/27/2016 SP Patient [...] : SP Pending 07/21/2016 SP Visit Plan: Nwqkg-bdqgljvqm-drlevm zpack Altitude sickness- SP also improving-less SOA, [...] 05/14/2016 SP Appointment: [facility] SPWPtel[facility] [phone] [facility] [place] [place] (15 min) Moderate SP 05/14/2016 SP [...] 04/23/2016 SP Appointment: Naheed Smith SPWPtel[facility] [phone] [phone] [place] (30 min) Complex SP 04/23/2016 [...] colonoscopy with Dr. Mcneil. 04/18/2015 SP Appointment: [facility] - SP Wellness Visit 04/18/2015 SP [...] for increased redness, swelling, warmth, discharge. . Lrujn-tniuxjhaw-ko lauren jonock SP Altitude sickness-symptoms also improving-less SOA, less headache-instructed patient and to rest over the week-increase fluids and call Thursday if symptoms are not improved. Patient verbalized understanding of plan.
--- OUTSIDE RECORDS SUMMARY | 2019-10-18 12:53 | XMS REPORT | CCD ---
Author Author Naheed Smith POS Organization [facility] SP Address [address] [place] [address] Phone SP Care Team Providers Care Oracle Distribution Consultant Name Role Phone POS PP Unavailable SP CCM Unavailable SP Summary Purpose Interface Exchange Insurance Providers Payer name Policy type / Coverage type POS republican ID Effective Begin Date Effective POS Date [facility] B POS Unknown Unknown [...] Effective Dates POS Tobacco history SNOMED CT: 2272316 Quit less SPthan 5 years ago 04/19/2015 SP Marital status Unknown M arried SP 01/30/2015 SP Number of children Unknown 2 SP 01/30/2015 SP Number of years using tobacco Unknown 20 SP 01/30/[address]: 122762 Currently SP alcohol 01/30/2015 SP Frequency of drinks SNOMED CT: 702801734 7 SP per week 01/30/2015 SP Has [...] Date Sta s POS Fill Instructions POS hydrochlorothiazide 25 mg tablet SP RxNorm: 224341 1 TABLET(S) PO DAILY SP 01/10/2019 06/08/2019 Ac tive SP SP lisinopril 10 mg tablet SP 671170 1 TABLET(S) PO DAILY 12/16/2018 SP 09/11/2019 Active SP Cymbalta 60 mg capsu le,delayed release SP RxNorm: 679663 1 CAPSULE(S) PO DAILY SP 12/16/2018 12/10/2019 Ac tive SP SP tramadol 50 mg tablet SP 380353 1-2 Tablet(s) PO Q4-6H as needed SP No Stop Date Active SP Vivelle-Dot 0.05 mg/ 24 hr transdermal patch SP RxNorm: 933112 1 PATCH TD BIW SP 09/17/2018 09/11/2019 Ac tive SP 1 patch twice weekly SP tramadol 50 mg tablet SP 366124 1-2 Tablet(s) PO Q4-6H as needed SP 11/28/2018 Inactive SP hydrochlorothiazide 25 mg tablet SP RxNorm: 157744 1 TABLET(S) PO DAILY SP 08/20/2018 01/09/2019 In active SP SP lisinopril 10 mg tablet SP 920845 1 Tablet(s) PO daily 07/15/2018 SP 12/15/2018 Inactive SP Cymbalta 60 mg capsu le,delayed release SP RxNorm: 313233 1 Capsule(s) PO daily SP 07/15/2018 12/15/2018 In active SP SP Cymbalta 60 mg capsu le,delayed release SP RxNorm: 576185 1 Capsule(s) PO daily SP 07/08/2018 07/14/2018 In active SP SP Cymbalta 30 mg capsu le,delayed release SP RxNorm: 875935 1 Capsule(s) PO daily SP 06/14/2018 07/07/2018 In active SP SP hydrochlorothiazide 25 mg tablet SP RxNorm: 633263 1 TABLET(S) PO DAILY SP 04/08/2018 06/13/2018 In active SP SP Vivelle-Dot 0.05 mg/ 24 hr transdermal patch SP RxNorm: 041907 1 PATCH TD BIW SP 11/19/2017 09/16/2018 In active SP 1 patch twice weekly SP hydrochlorothiazide 25 mg tablet SP RxNorm: 141600 1 TABLET(S) PO DAILY SP 10/29/2017 03/27/2018 In active SP SP hydrochlorothiazide 25 mg tablet SP RxNorm: 694091 1 Tablet(s) PO daily SP 05/18/2017 10/28/2017 In active SP SP vitamin H65-mlpta ac id 2.5 mg-0.8 mg oral sublingual tablet SP RxNorm: 988337 1000mcg SP PO daily 04/09/2017 No Stop Date SP Active SP Vivelle-Dot 0.05 mg/ 24 hr transdermal patch SP RxNorm: 013544 1 PATCH TD BIW SP 01/01/2017 11/18/2017 In active SP 1 patch twice weekly SP omeprazole 40 mg cap parul,delayed release SP RxNorm: 573528 1 Capsule(s) PO daily SP 11/27/2016 12/26/2016 In active SP SP Levaquin 500 mg tablet SP 287124 1 Tablet(s) PO daily 11/27/2016 SP 12/03/2016 Inactive SP hydrochlorothiazide 25 mg tablet SP RxNorm: 674531 1 Tablet(s) PO daily SP 11/27/2016 05/17/2017 In active SP SP Voltaren 1 % topical gel SP RxNorm: 429495 2 Gram(s) TOP QID SP 07/12/2016 Inactive SP prednisone 10 mg tablet SP 322833 Tablet(s) PO UD 04/23/2016 SP 04/08/2017 Inactive SP Vivelle-Dot 0.05 mg/ 24 hr transdermal patch SP RxNorm: 136674 1 PATCH TD BIW SP 01/28/2016 12/31/2016 In active SP 1 patch twice weekly SP Bactrim DS 800 mg-16 0 mg tablet SP RxNorm: 203608 1 Tablet(s) PO BID SP 05/20/2015 Inactive SP Culturelle 10 billio n cell capsule SP RxNorm: 108999 1 Capsule(s) PO daily SP 05/14/2015 06/12/2015 In active SP SP Vitamin D3 1,000 uni t tablet SP RxNorm: 750005 5 (5000) Tablet(s) PO daily SP 04/18/2015 04/08/2017 In active SP SP Premarin 0.625 mg/gr am vaginal cream SP RxNorm: 490962 1 Gram(s) VAG 2 times weekly SP 02/22/2015 02/21/2015 SP SP Chantix 1 mg tablet SP 396709 1 Tablet(s) PO BID 02/22/2015 SP 02/21/2015 Inactive SP Chantix 1 mg tablet SP 729943 1 Tablet(s) PO BID 02/22/2015 SP 04/22/2015 Inactive [[facility]IDA INGS SP NON-COVERED DRUGS -- BIN:006820, PCN: ASPROD1, Group: XXXXX, ID# [id number], Questions: . THIS IS NOT INSURANCE.] Premarin 0.625 mg/gr am vaginal cream SP RxNorm: 215647 1 Gram(s) VAG 2 times weekly SP 02/22/2015 09/19/2015 SP [SAVINGS FOR NON-COVERED DRUGS -- BIN:00 3585, PCN: ASPROD1, SPGroup: XXXXX, ID# [id number], Questions: . THIS IS NOT INSURANCE.] magnesium RxNorm: SP 900 PO daily 01/30/2015 SP Inactive [SAVINGS FOR NON-COVERED DR UGS SP BIN:102985, PCN: ASPROD1, Group: XXXXX, ID# [id number], Questions: . THIS IS NOT INSURANCE.] Vivelle-Dot 0.05 mg/ 24 hr transdermal patch SP RxNorm: 369305 2 TD QW SP 01/29/2015 Inactive SP Vivelle-Dot 0.05 mg/ 24 hr transdermal patch SP RxNorm: 286810 1 Patch TD BIW SP 01/30/2015 01/27/2016 In active SP 1 patch twice weekly SP Pataday 0.2 % eye drops SP 8790487 Drop(s) OPH daily No Start Date SP Active SP olive leaf extract oral SP oral No Start Date SP Active SP Flonase Allergy Reli ef 50 mcg/actuation nasal SP RxNorm: 1 to each nare SPSpray NASAL daily No Start Date SP Active SP Singulair 10 mg tablet SP 498813 1 Tablet(s) PO daily No Start Date SP Active SP hydrochlorothiazide 25 mg tablet SP RxNorm: 970146 1 Tablet(s) PO daily SP No Start Date Active SP coenzyme Q10 200 mg capsule SP RxNorm: 370692 2 Capsule(s) PO daily No SPStart Date Active SP Zyrtec 10 mg capsule SP 8326721 1 Capsule(s) PO daily No Start SP Active SP krill oil oral RxNorm: SP oral No Start Date SP [place] [address] oral No Start Date SP 04/08/2017 Inactive SP tramadol 50 mg tablet SP 935010 1-2 Tablet(s) PO Q4-6H as needed SP Start Date 09/06/2018 Inactive SP SP magnesium oral RxNorm: SP oral No Start Date SP Inactive SP Kadi oral RxNorm: SP oral No Start Date SP Inactive SP B Complex 1 tablet SP 1 Tablet(s) PO daily No Start Date SP 04/08/2017 Inactive SP Vitamin D3 1,000 uni t tablet SP RxNorm: 991195 5 (5000) Tablet(s) PO daily SP No Start Date 04/17/2015 Inactive SP SP vitamin I27-vaken ac id oral SP RxNorm: oral No Start D ate SP 04/08/2017 Inactive SP Calcium RxNorm: SP 1800 PO daily No Start Date SP Inactive SP Kadi-D 12 Hour oral SP 234933 oral No Start Date SP 01/29/2015 Inactive [...] Item Code Result Date POS Comp Metabolic Eed152 NA POS 140 mEq/L 06/25/2018 SP Comp Metabolic Nqx068 K SP 3.5 mEq/L 06/25/2018 SP Comp Metabolic Djt011 CL SP 101 mEq/L 06/25/2018 SP Comp Metabolic Zzb377 CO2 SP 29.0 mEq/L 06/25/2018 SP Comp Metabolic Qjp271 AN ION GAP SP 14 06/25/2018 SP Comp Metabolic Ksm390 GL UCOSE SP 107 mg/dL 06/25/2018 SP Comp Metabolic Qsy208 Cr eat SP 0.6 mg/dL 06/25/2018 SP Comp Metabolic Dhr406 eG FR SP 103 ml/min/1.73m2 06/03 SP Comp Metabolic Ygr654 BUN SP 10 mg/dL 06/25/2018 SP Comp Metabolic Yrk614 B/ C Ratio SP 16.4 Ratio 06/25/2018 SP Comp Metabolic Ifp122 CA LCIUM SP 9.1 mg/dL 06/25/2018 SP Comp Metabolic Ivp736 AL K PHOS SP 65 U/L 06/25/2018 SP Comp Metabolic Xzy202 T(SGOT) SP 17 U/L 06/25/2018 SP Comp Metabolic Aql746 AL T(SGPT) SP 13 U/L 06/25/2018 SP Comp Metabolic Dra380 BI LI T SP 0.5 mg/dL 06/25/2018 SP Comp Metabolic Yro803 AL BUMIN SP 3.8 g/dL 06/25/2018 SP Comp Metabolic Hps542 TP RO SP 6.6 g/dL 06/25/2018 SP Comp Metabolic Uon283 GL OB SP 2.8 g/dL 06/25/2018 SP Comp Metabolic Bmv380 A/ G Ratio SP 1.3 Ratio 06/25/2018 SP Comp Metabolic Rll317 Os mo SP 279 mOsmo 06/25/2018 SP [...] pg 06/25/2018 SP Cbc With Differential Ord2 [place]% SP 10.6 % 06/25/2018 SP Cbc With [...] K/ul 06/25/2018 SP Cbc With Differential Ord2 [place] ABS# SP 0.7 K/ul 06/25/2018 SP Cbc [...] pg 04/09/2017 SP Cbc With Differential Ord2 [place]% SP 7.9 % 04/09/2017 SP Cbc With [...] K/ul 04/09/2017 SP Cbc With Differential Ord2 [place] ABS# SP 0.7 K/ul 04/09/2017 SP Cbc With Differential Ord2 Eos ABS# SP 0.1 K/ul 04/09/2017 SP Cbc With Differential Ord2 Baso ABS# SP 0.0 K/ul 04/09/2017 SP Tsh Ord6 hTSH II SP 1.04 uIU/mL 04/09/2017 SP Comp Metabolic Oqk177 NA SP 140 mEq/L 04/09/2017 SP Comp Metabolic Utr304 K SP 3.7 mEq/L 04/09/2017 SP Comp Metabolic Cne744 CL SP 104 mEq/L 04/09/2017 SP Comp Metabolic Mti493 CO2 SP 28.0 mEq/L 04/09/2017 SP Comp Metabolic Tvw055 AN ION GAP SP 12 04/09/2017 SP Comp Metabolic Phs174 GL UCOSE SP 133 mg/dL 04/09/2017 SP Comp Metabolic Cah723 Cr eat SP 0.6 mg/dL 04/09/2017 SP Comp Metabolic Dnk644 eG FR SP 114 ml/min/1.73m2 06/2017 SP Comp Metabolic Eaw811 BUN SP 13 mg/dL 04/09/2017 SP Comp Metabolic Kjz930 B/ C Ratio SP 23.2 Ratio 04/09/2017 SP Comp Metabolic Duo855 CA LCIUM SP 9.2 mg/dL 04/09/2017 SP Comp Metabolic Zqm163 AL K PHOS SP 53 U/L 04/09/2017 SP Comp Metabolic Leb275 T(SGOT) SP 21 U/L 04/09/2017 SP Comp Metabolic Geb918 AL T(SGPT) SP 18 U/L 04/09/2017 SP Comp Metabolic Iqv676 BI LI T SP 0.4 mg/dL 04/09/2017 SP Comp Metabolic Lra112 AL BUMIN SP 4.0 g/dL 04/09/2017 SP Comp Metabolic Joi647 TP RO SP 7.0 g/dL 04/09/2017 SP Comp Metabolic Opd178 GL OB SP 3.0 g/dL 04/09/2017 SP Comp Metabolic Ory361 A/ G Ratio SP 1.4 Ratio 04/09/2017 SP Comp Metabolic Crs566 Os mo SP 281 mOsmo 04/09/2017 SP [...] ADMIN PNEUMOCOCCAL V ACCINE SP SNOMED CT: 29502114 SPCPT-4: G0009 10/13/2017 SP Pneumococcal Polysac charide Vaccine, 23-Valent, Ad SP CPT-4: 21302 10/13/2017 SP ADMIN PNEUMOCOCCAL V ACCINE SP SNOMED CT: 32730689 SPCPT-4: G0009 12/10/2016 SP PNEUMOCOCCAL VACC 13 NORY IM SP SNOMED CT: 17346050 SPCPT-4: 15745 12/10/2016 SP TRIAMCINOLONE ACET I [place] NOS SP CPT-4: J3301 05/14/2016 SP DRAIN/INJECT JOINT/B URSA SP CPT-4: 37523 05/14/2016 SP PPPS, SUBSEQ VISIT CPT- SP [...] 1: SP Code: 8480-6 BMI: SP Code: 06393-7 Heart SP 1: 89 bpm Height: SP [...] ER in [place] cough Location in the [facility] SP 06/20/2016 None SP cough Quality [...] Performer Loca tion POS Codes Date POS [id number]) [id number] EST. P ATIENT, LEVEL III SPDiagnosis: Essential (primary) hypertension[ICD10: I10] Diagnosis: Fibromyalgia[ICD10: M79.7] Diagnosis: Primary generalized (osteo)arthritis[ICD10: M15.0] Naheed Wang MD, [facility] CPT-4: 84404 07/15/2018 SP ([id number]) 00973 EST. P ATIENT, LEVEL IV SPDiagnosis: Essential (primary) hypertension[ICD10: I10] Diagnosis: Fibromyalgia[ICD10: M79.7] Diagnosis: Primary generalized (osteo)arthritis[ICD10: M15.0] Naheed Wang MD, [facility] CPT-4: 81857 06/14/2018 SP ([id number]) 22004 EST. P ATIENT, LEVEL IV SPDiagnosis: Encounter for general adult medical examination with abnormal findings[ICD10: Z00.01] Diagnosis: Essential (primary) hypertension[ICD10: I10] Diagnosis: Nonscarring hair loss, unspecified[ICD10: L65.9] Naheed Wang MD, [facility] CPT-4: 62892 04/09/2017 SP ([id number]) 87249 EST. P ATIENT, LEVEL III SPDiagnosis: Essential (primary) hypertension[ICD10: I10] Diagnosis: Acute recurrent maxillary sinusitis[ICD10: J01.01] Naheed Wang MD, [facility] CPT-4: 99896 11/27/2016 SP ([id number]) 13017 EST. P ATIENT, LEVEL IV SPDiagnosis: Dyspnea, unspecified[ICD10: R06.00] Diagnosis: Snoring[ICD10: R06.83] Diagnosis: Cough[ICD10: R05] Diagnosis: Personal history of nicotine dependence[ICD10: Z87.891] Diagnosis: Hypersomnia, unspecified[ICD10: G47.10] Naheed Wang MD, [facility] CPT-4: 19795 07/21/2016 SP ([id number]) 95467 EST. P ATIENT, LEVEL III SPDiagnosis: Cough[ICD10: R05] Diagnosis: Other effects of high altitude, initial encounter[ICD10: T70.29XA] aNheed LEON MD, [facility] CPT-4: 17943 06/20/2016 SP ([id number]) 09504 EST. P ATIENT, LEVEL III SPDiagnosis: Pain in left wrist[ICD10: M25.532] Diagnosis: Pain in left finger(s)[ICD10: M79.645] Diagnosis: Primary osteoarthritis, left hand[ICD10: M19.042] [facility] SP CPT-4: 67365 05/14/2016 [place] [id number] EST. PATIENT, LEVEL III SPDiagnosis: Pain in left wrist[ICD10: M25.532] Diagnosis: Pain in left finger(s)[ICD10: M79.645] [facility] SP4: 30262 04/23/2016 SP ([id number]) 97579 EST. P ATIENT, LEVEL II SPDiagnosis: INSECT BITE NEC-INFECTED[ICD9: 919.5] Nati Wang MD, [facility] SP4: 18135 05/14/2015 SP ([id number]) OFFICE VISI T, NEW - LEVEL 3 SPDiagnosis: Tobacco use[ICD9: 305.1] Diagnosis: Vaginal dryness, menopausal[ICD9: 627.2] Diagnosis: ALLERGIC RHINITIS[ICD9: 477.9] CAROLYN Wang MD, [facility] CPT-4: SP 01/30/2015 SP Plan of [...] today 07/15/2018 SP Appointment: Naheed Smith SPWPtel: [address] [place], [place] [phone] (15 min) Moderate SP 07/15/2018 SP Patient [...] of plan. 06/14/2018 SP Appointment: Naheed SmithWPtel: [address] [place], [place] [phone] (30 min) Complex SP 06/14/2018 SP Patient Education: Patient Medication Summary SP Completed 06/14/2018 SP Care Plan: COMPLETE CBC AUTOMATED LOINC : SP Pending 06/14/2018 SP Care Plan: SCREENINGMAMMOGRAPHYDIGITAL SP : [id number] Pending 06/14/2018 SP Appointment: Injection SP 10/13/2017 [...] fatigue-check labs including TSH 04/09/2017 SP Appointment: Luis Naheed SPWPtel: [phone] (30 min) Complex SP 04/09/2017 SP Patient [...] 11/27/2016 SP Appointment: Naheed Smith SPWPtel[phone] (30 min) Complex SP 11/27/2016 SP Patient [...] : SP Pending 07/21/2016 SP Visit Plan: Pasjx-uvefblimt-qoxpnz zpack Altitude sickness- SP also improving-less SOA, [...] 05/14/2016 SP Appointment: [facility] SPWPtel[facility] [phone] [facility] [place] (15 min) Moderate SP 05/14/2016 SP [...] concerns. 04/23/2016 SP Appointment: [facility]heed Smith SPWPtel[facility] [phone] [phone] [place] (30 min) Complex SP 04/23/2016 SP [...] colonoscopy with Dr. Mcneil. 04/18/2015 SP Appointment: [facility] - SP Wellness Visit 04/18/2015 [...] understanding of plan. Plan to schedule [facility] medic[facility] this summer SP Plan to [...] for increased redness, swelling, warmth, discharge. . Vfshc-gwjixbnvl-sz lauren young SP Altitude sickness-symptoms also improving-less SOA, less headache-instructed patient and to rest over the week-increase fluids and call Thursday if symptoms are not improved. Patient verbalized understanding of plan.
--- OUTSIDE RECORDS SUMMARY | 2019-10-18 12:54 | XMS REPORT | CCD ---
Author Author Naheed Smith POS Organization [facility] SP Address [address] [place] [address] Phone SP Care Team Providers Care Key Entry Operator Name Role Phone POS PP Unavailable SP CCM Unavailable SP Summary Purpose Interface Exchange Insurance Providers Payer name Policy type / Coverage type POS libertarian ID Effective Begin Date Effective POS Date [facility] Medicare Part B POS Unknown Unknown [...] Effective Dates POS Tobacco history SNOMED CT: 5444973 Quit less SPthan 5 years ago 04/19/2015 SP Marital status Unknown M arried SP 01/30/2015 SP Number of children Unknown 2 SP 01/30/2015 SP Number of years using tobacco Unknown 20 SP 01/30/[address]: 737295 Currently SP alcohol 01/30/2015 SP Frequency of drinks SNOMED CT: 516844046 7 SP per week 01/30/2015 SP Has [...] Date Sta tus POS Fill Instructions POS lisinopril 10 mg tablet SP 816394 1 TABLET(S) PO DAILY 12/16/2018 SP 09/11/2019 Active SP Cymbalta 60 mg capsu le,delayed release SP RxNorm: 920398 1 CAPSULE(S) PO DAILY SP 12/16/2018 12/10/2019 Ac tive SP SP tramadol 50 mg tablet SP 483757 1-2 Tablet(s) PO Q4-6H as needed SP No Stop Date Active SP Vivelle-Dot 0.05 mg/ 24 hr transdermal patch SP RxNorm: 805671 1 PATCH TD BIW SP 09/17/2018 09/11/2019 Ac tive SP 1 patch twice weekly SP tramadol 50 mg tablet SP 005982 1-2 Tablet(s) PO Q4-6H as needed SP 11/28/2018 Inactive SP hydrochlorothiazide 25 mg tablet SP RxNorm: 738341 1 TABLET(S) PO DAILY SP 08/20/2018 01/16/2019 Ac tive SP SP lisinopril 10 mg tablet SP 019743 1 Tablet(s) PO daily 07/15/2018 SP 12/15/2018 Inactive SP Cymbalta 60 mg capsu le,delayed release SP RxNorm: 295621 1 Capsule(s) PO daily SP 07/15/2018 12/15/2018 In active SP SP Cymbalta 60 mg capsu le,delayed release SP RxNorm: 683873 1 Capsule(s) PO daily SP 07/08/2018 07/14/2018 In active SP SP Cymbalta 30 mg capsu le,delayed release SP RxNorm: 707874 1 Capsule(s) PO daily SP 06/14/2018 07/07/2018 In active SP SP hydrochlorothiazide 25 mg tablet SP RxNorm: 927784 1 TABLET(S) PO DAILY SP 04/08/2018 06/13/2018 In active SP SP Vivelle-Dot 0.05 mg/ 24 hr transdermal patch SP RxNorm: 134994 1 PATCH TD BIW SP 11/19/2017 09/16/2018 In active SP 1 patch twice weekly SP hydrochlorothiazide 25 mg tablet SP RxNorm: 792770 1 TABLET(S) PO DAILY SP 10/29/2017 03/27/2018 In active SP SP hydrochlorothiazide 25 mg tablet SP RxNorm: 114130 1 Tablet(s) PO daily SP 05/18/2017 10/28/2017 In active SP SP vitamin M03-ogspg ac id 2.5 mg-0.8 mg oral sublingual tablet SP RxNorm: 144621 1000mcg SP PO daily 04/09/2017 No Stop Date SP Active SP Vivelle-Dot 0.05 mg/ 24 hr transdermal patch SP RxNorm: 693139 1 PATCH TD BIW SP 01/01/2017 11/18/2017 In active SP 1 patch twice weekly SP omeprazole 40 mg cap parul,delayed release SP RxNorm: 463231 1 Capsule(s) PO daily SP 11/27/2016 12/26/2016 In active SP SP Levaquin 500 mg tablet SP 745688 1 Tablet(s) PO daily 11/27/2016 SP 12/03/2016 Inactive SP hydrochlorothiazide 25 mg tablet SP RxNorm: 663963 1 Tablet(s) PO daily SP 11/27/2016 05/17/2017 In active SP SP Voltaren 1 % topical gel SP RxNorm: 205589 2 Gram(s) TOP QID SP 07/12/2016 Inactive SP prednisone 10 mg tablet SP 198348 Tablet(s) PO UD 04/23/2016 SP 04/08/2017 Inactive SP Vivelle-Dot 0.05 mg/ 24 hr transdermal patch SP RxNorm: 978426 1 PATCH TD BIW SP 01/28/2016 12/31/2016 In active SP 1 patch twice weekly SP Bactrim DS 800 mg-16 0 mg tablet SP RxNorm: 901285 1 Tablet(s) PO BID SP 05/20/2015 Inactive SP Culturelle 10 billio n cell capsule SP RxNorm: 389160 1 Capsule(s) PO daily SP 05/14/2015 06/12/2015 In active SP SP Vitamin D3 1,000 uni t tablet SP RxNorm: 330849 5 (5000) Tablet(s) PO daily SP 04/18/2015 04/08/2017 In active SP SP Premarin 0.625 mg/gr am vaginal cream SP RxNorm: 719923 1 Gram(s) VAG 2 times weekly SP 02/22/2015 02/21/2015 SP SP Chantix 1 mg tablet SP 913082 1 Tablet(s) PO BID 02/22/2015 SP 02/21/2015 Inactive SP Chantix 1 mg tablet SP 571391 1 Tablet(s) PO BID 02/22/2015 SP 04/22/2015 Inactive [[facility] INGS SP NON-COVERED DRUGS -- BIN:[id number], PCN: [id number], Group: XXXXX, ID# [id number], Questions: . THIS IS NOT INSURANCE.] Premarin 0.625 mg/gr am vaginal cream SP RxNorm: 820900 1 Gram(s) VAG 2 times weekly SP 02/22/2015 09/19/2015 SP [SAVINGS FOR NON-COVERED DRUGS -- BIN:00 3585, PCN: [id number], SPGroup: XXXXX, ID# [id number], Questions: . THIS IS NOT INSURANCE.] magnesium RxNorm: SP 900 PO daily 01/30/2015 SP Inactive [SAVINGS FOR NON-COVERED DR UGS SP BIN:[id number], PCN: ASPROD1, Group: XXXXX, ID# [id number], Questions: . THIS IS NOT INSURANCE.] Vivelle-Dot 0.05 mg/ 24 hr transdermal patch SP RxNorm: 950720 2 TD QW SP 01/29/2015 Inactive SP Vivelle-Dot 0.05 mg/ 24 hr transdermal patch SP RxNorm: 673158 1 Patch TD BIW SP 01/30/2015 01/27/2016 In active SP 1 patch twice weekly SP Pataday 0.2 % eye drops SP 3669383 Drop(s) OPH daily No Start Date SP Active SP olive leaf extract oral SP oral No Start Date SP Active SP Flonase Allergy Reli ef 50 mcg/actuation nasal SP RxNorm: 1 to each nare SPSpray NASAL daily No Start Date SP Active SP Singulair 10 mg tablet SP 957420 1 Tablet(s) PO daily No Start Date SP Active SP hydrochlorothiazide 25 mg tablet SP RxNorm: 559812 1 Tablet(s) PO daily SP No Start Date Active SP coenzyme Q10 200 mg capsule SP RxNorm: 863241 2 Capsule(s) PO daily No SPStart Date Active SP Zyrtec 10 mg capsule SP 5005479 1 Capsule(s) PO daily No Start SP Active SP krill oil oral RxNorm: SP oral No Start Date SP [place] [address] oral No Start Date SP 04/08/2017 Inactive SP tramadol 50 mg tablet SP 458761 1-2 Tablet(s) PO Q4-6H as needed SP Start Date 09/06/2018 Inactive SP SP magnesium oral RxNorm: SP oral No Start Date SP Inactive SP Kadi oral RxNorm: SP oral No Start Date SP Inactive SP B Complex 1 tablet SP 1 Tablet(s) PO daily No Start Date SP 04/08/2017 Inactive SP Vitamin D3 1,000 uni t tablet SP RxNorm: 890090 5 (5000) Tablet(s) PO daily SP No Start Date 04/17/2015 Inactive SP SP vitamin O43-woole ac id oral SP RxNorm: oral No Start D ate SP 04/08/2017 Inactive SP Calcium RxNorm: SP 1800 PO daily No Start Date SP Inactive SP Kadi-D 12 Hour oral SP 535083 oral No Start Date SP 01/29/2015 Inactive [...] Assessments Condition Codes Effectiv e Dates POS Fibromyalgia ICD-10: M79.7 POSICD-9: 729.1 07/15/2018 SP Primary generalized (osteo)arthritis ICD-10: M15.0 SPICD-9: 715.09 07/15/2018 SP Essential (primary) hypertension ICD -10: I10 SPICD-9: 401.1 07/15/2018 SP Encounter for immunization ICD-10: Z 23 SPICD-9: V03.82 10/13/2017 SP Nonscarring hair loss, unspecified I CD-10: L65.9 SPICD-9: 704.00 04/09/2017 SP Encounter for general adult medical exam ination with abnormal findings SP ICD-10: Z00.01 SPICD-9: V70.0 04/09/2017 SP Acute recurrent maxillary sinusitis ICD-10: J01.01 SPICD-9: 461.0 11/27/2016 SP Dyspnea, unspecified ICD-10: R06.00 SPICD-9: 786.09 07/21/2016 SP Cough ICD-10: R05 SPICD-9: 786.2 07/21/2016 SP Personal history of nicotine dependence ICD-10: Z87.891 SPICD-9: V15.82 07/21/2016 SP Snoring ICD-10: R06.83 SPICD-9: 786.09 07/21/2016 SP Hypersomnia, unspecified ICD-10: G47 .10 SPICD-9: 780.54 07/21/2016 SP Other effects of high altitude, initial encounter ICD-10: SP ICD-9: 993.2 06/20/2016 SP Pain in left finger(s) ICD-10: M79.6 45 SPICD-9: 729.5 05/14/2016 SP Pain in left wrist ICD-10: M25.532 SPICD-9: 719.43 05/14/2016 SP Primary osteoarthritis, left hand IC D-10: M19.042 SPICD-9: 715.34 05/14/2016 SP INSECT BITE NEC-INFECTED ICD-9: 919.5 SP PREVENTIVE PHYSICAL EXAM ICD-9: V70.0 SP ALLERGIC RHINITIS ICD-9: 477.9 01/30/2015 SP Tobacco use ICD-9: 305.1 01/30/2015 SP Vaginal dryness, menopausal ICD-9: 627.2 SP Reason For Visit Reason For Visit [...] Item POS Item Code Result Date POS Lipid Ord30 CHOL POS 183 mg/dL 06/25/2018 SP Lipid Ord30 HDL [...] % 06/25/2018 SP Cbc With Differential Ord2 [place]% SP 10.6 % 06/25/2018 SP Cbc With Differential Ord2 MCH SP 32.8 pg 06/25/2018 SP Cbc With Differential Ord2 Eos% SP 11.7 % 06/25/2018 SP Cbc With Differential Ord2 MCHC SP 32.8 pg 06/25/2018 SP Cbc With Differential Ord2 PLT [...] Baso ABS# SP 0.0 K/ul 06/25/2018 SP Comp Metabolic Fjj042 NA SP 140 mEq/L 06/25/2018 SP Comp Metabolic Ltg748 K SP 3.5 mEq/L 06/25/2018 SP Comp Metabolic Xxi669 CL SP 101 mEq/L 06/25/2018 SP Comp Metabolic Qpk986 CO2 SP 29.0 mEq/L 06/25/2018 SP Comp Metabolic Vop780 AN ION GAP SP 14 06/25/2018 SP Comp Metabolic Ibk255 GL UCOSE SP 107 mg/dL 06/25/2018 SP Comp Metabolic Ndl299 Cr eat SP 0.6 mg/dL 06/25/2018 SP Comp Metabolic Lpx149 eG FR SP 103 ml/min/1.73m2 06/03 SP Comp Metabolic Ldx602 BUN SP 10 mg/dL 06/25/2018 SP Comp Metabolic Sac603 B/ C Ratio SP 16.4 Ratio 06/25/2018 SP Comp Metabolic Oal308 CA LCIUM SP 9.1 mg/dL 06/25/2018 SP Comp Metabolic Mrt796 AL K PHOS SP 65 U/L 06/25/2018 SP Comp Metabolic Roh957 T(SGOT) SP 17 U/L 06/25/2018 SP Comp Metabolic Teh935 AL T(SGPT) SP 13 U/L 06/25/2018 SP Comp Metabolic Wui690 BI LI T SP 0.5 mg/dL 06/25/2018 SP Comp Metabolic Nol064 AL BUMIN SP 3.8 g/dL 06/25/2018 SP Comp Metabolic Yjw294 TP RO SP 6.6 g/dL 06/25/2018 SP Comp Metabolic Tzv361 GL OB SP 2.8 g/dL 06/25/2018 SP Comp Metabolic Nxg318 A/ G Ratio SP 1.3 Ratio 06/25/2018 SP Comp Metabolic Eyr639 Os mo SP 279 mOsmo 06/25/2018 SP Cbc With Differential Ord2 WBC SP 8.19 K/ul 04/09/2017 SP Cbc With Differential Ord2 RBC SP 3.96 M/ul 04/09/2017 SP Cbc With Differential Ord2 HGB SP 12.9 g/dl 04/09/2017 SP Cbc With Differential Ord2 Neut% SP 61.9 % 04/09/2017 SP Cbc With Differential Ord2 HCT [...] SP 1.04 uIU/mL 04/09/2017 SP Comp Metabolic Wvl071 NA SP 140 mEq/L 04/09/2017 SP Comp Metabolic Cza902 K SP 3.7 mEq/L 04/09/2017 SP Comp Metabolic Prm525 CL SP 104 mEq/L 04/09/2017 SP Comp Metabolic Nxg619 CO2 SP 28.0 mEq/L 04/09/2017 SP Comp Metabolic Ujb181 AN ION GAP SP 12 04/09/2017 SP Comp Metabolic Mbf025 GL UCOSE SP 133 mg/dL 04/09/2017 SP Comp Metabolic Vzd495 Cr eat SP 0.6 mg/dL 04/09/2017 SP Comp Metabolic Yvo451 eG FR SP 114 ml/min/1.73m2 06/2017 SP Comp Metabolic Cwu792 BUN SP 13 mg/dL 04/09/2017 SP Comp Metabolic Yfi911 B/ C Ratio SP 23.2 Ratio 04/09/2017 SP Comp Metabolic Mqy658 CA LCIUM SP 9.2 mg/dL 04/09/2017 SP Comp Metabolic Bsq356 AL K PHOS SP 53 U/L 04/09/2017 SP Comp Metabolic Tzq223 T(SGOT) SP 21 U/L 04/09/2017 SP Comp Metabolic Mno995 AL T(SGPT) SP 18 U/L 04/09/2017 SP Comp Metabolic Yis691 BI LI T SP 0.4 mg/dL 04/09/2017 SP Comp Metabolic Tyn462 AL BUMIN SP 4.0 g/dL 04/09/2017 SP Comp Metabolic Tkl913 TP RO SP 7.0 g/dL 04/09/2017 SP Comp Metabolic Iem505 GL OB SP 3.0 g/dL 04/09/2017 SP Comp Metabolic Shd772 A/ G Ratio SP 1.4 Ratio 04/09/2017 SP Comp Metabolic Wcz292 Os mo SP 281 mOsmo 04/09/2017 SP [...] coarse skin 06/14/2018 SP Endocrine hair loss /06/2017 SP Endocrine dry or coarse skin 04/09/2017 [...] 07/15/2018 None SP Full Exam - General 1995 Ears/Nose/Throat SP exam Overall: tympanic membranes clear SP 07/15/2018 None SP Full Exam - General 1995 Ears/Nose/Throat SP cavity/pharynx/larynx Overall: oral SP clear 07/15/2018 None SP Full Exam - General 1995 Ears/Nose/Throat SP cavity/pharynx/larynx Overall: SP mucosa clear [...] ADMIN PNEUMOCOCCAL V ACCINE SP SNOMED CT: 50993437 SPCPT-4: G0009 10/13/2017 SP Pneumococcal Polysac charide Vaccine, 23-Valent, Ad SP CPT-4: 71584 10/13/2017 SP ADMIN PNEUMOCOCCAL V ACCINE SP SNOMED CT: 22644020 SPCPT-4: G0009 12/10/2016 SP PNEUMOCOCCAL VACC 13 NORY IM SP SNOMED CT: 63349675 SPCPT-4: 80239 12/10/2016 SP TRIAMCINOLONE ACET I [place] NOS SP CPT-4: J3301 05/14/2016 SP DRAIN/INJECT JOINT/B URSA SP CPT-4: 16242 05/14/2016 SP PPPS, SUBSEQ VISIT CPT- SP [...] 172 lbs SP 05/14/2016 Blood Pressure 1: 124/68 Code: SP6 Blood Pressure 1: SP Code: 8480-6 BMI: SP Code: 42325-7 Heart SP 1: 89 bpm Height: SP [...] 07/21/2016 recent pneumonia- SP in ER in [place] cough Location in the [place] SP [...] Performer Loca tion POS Codes Date POS [id number]) [id number] EST. P ATIENT, LEVEL III SPDiagnosis: Essential (primary) hypertension[ICD10: I10] Diagnosis: Fibromyalgia[ICD10: M79.7] Diagnosis: Primary generalized (osteo)arthritis[ICD10: M15.0] [facility] SP CPT-4: 30265 07/15/2018 SP [id number]) 73776 EST. P ATIENT, LEVEL IV SPDiagnosis: Essential (primary) hypertension[ICD10: I10] Diagnosis: Fibromyalgia[ICD10: M79.7] Diagnosis: Primary generalized (osteo)arthritis[ICD10: M15.0] Naheed Wang MD, [facility] CPT-4: 16479 06/14/2018 SP [id number]) 80239 EST. P ATIENT, LEVEL IV SPDiagnosis: Encounter for general adult medical examination with abnormal findings[ICD10: Z00.01] Diagnosis: Essential (primary) hypertension[ICD10: I10] Diagnosis: Nonscarring hair loss, unspecified[ICD10: L65.9] [facility]heed Wang MD, [facility] CPT-4: 09545 04/09/2017 SP [phone]) 99335 EST. P ATIENT, LEVEL III SPDiagnosis: Essential (primary) hypertension[ICD10: I10] Diagnosis: Acute recurrent maxillary sinusitis[ICD10: J01.01] [facility] MD, [facility] CPT-4: 69683 11/27/2016 SP [phone]) 38411 EST. P ATIENT, LEVEL IV SPDiagnosis: Dyspnea, unspecified[ICD10: R06.00] Diagnosis: Snoring[ICD10: R06.83] Diagnosis: Cough[ICD10: R05] Diagnosis: Personal history of nicotine dependence[ICD10: Z87.891] Diagnosis: Hypersomnia, unspecified[ICD10: G47.10] Naheed Wang MD, [facility] CPT-4: 91660 07/21/2016 SP ([id number]) 27913 EST. P ATIENT, LEVEL III SPDiagnosis: Cough[ICD10: R05] Diagnosis: Other effects of high altitude, initial encounter[ICD10: T70.29XA] Naheed LEON MD, [facility] CPT-4: 43447 06/20/2016 SP [id number]) 61855 EST. P ATIENT, LEVEL III SPDiagnosis: Pain in left wrist[ICD10: M25.532] Diagnosis: Pain in left finger(s)[ICD10: M79.645] Diagnosis: Primary osteoarthritis, left hand[ICD10: M19.042] [facility] SP CPT-4: 40604 05/14/2016 [place] [address] EST. PATIENT, LEVEL III SPDiagnosis: Pain in left wrist[ICD10: M25.532] Diagnosis: Pain in left finger(s)[ICD10: M79.645] [facility] SP4: 17582 04/23/2016 SP [phone]) 35468 EST. P ATIENT, LEVEL II SPDiagnosis: INSECT BITE NEC-INFECTED[ICD9: 919.5] [facility] SP4: 85020 05/14/2015 SP ([id number]) OFFICE VISI T, NEW - LEVEL 3 [...] today 07/15/2018 SP Appointment: Naheed Smith SPWPtel: [address] [place] [address] [id number] (15 min) Moderate SP 07/15/2018 SP Patient [...] plan. 06/14/2018 SP Appointment: [facility]heed [facility] SP[facility] [phone] (30 min) Complex SP 06/14/2018 SP Patient Education: Patient Medication Summary SP Completed 06/14/2018 SP Care Plan: COMPLETE CBC AUTOMATED LOINC : SP Pending 06/14/2018 SP Care Plan: SCREENINGMAMMOGRAPHYDIGITAL SP : [id number] Pending 06/14/2018 SP Appointment: Injection SP 10/13/2017 [...] labs including TSH 04/09/2017 SP [facility]ment: [facility] SmithWPtel[facility] [phone] [facility] (30 min) Complex SP 04/09/2017 SP Patient [...] SP Appointment: Naheed Smith SPWPtel: [phone] [facility] [id number] (30 min) Complex SP 11/27/2016 SP Patient [...] : SP Pending 07/21/2016 SP Visit Plan: Iugxk-qeuoyhtfq-lqaxsn zpack Altitude sickness- SP also improving-less SOA, [...] surgery 05/14/2016 SP Appointment: [facility] SPWPtel[facility] [phone] [facility] [place] [place] (15 min) Moderate SP 05/14/2016 SP [...] 04/23/2016 SP Appointment: Naheed Smith SPWPtel: [phone] [facility] [id number] [place] (30 min) Complex SP 04/23/2016 SP [...] colonoscopy with Dr. Mcneil. 04/18/2015 SP Appointment: [facility] - [...] for increased redness, swelling, warmth, discharge. . Nphex-tocvfvssl-oq nish zpack SP Altitude sickness-symptoms also improving-less SOA, less headache-instructed patient and to rest over the week-increase fluids and call Thursday if symptoms are not improved. Patient verbalized understanding of plan.
--- OUTSIDE RECORDS SUMMARY | 2019-10-18 12:56 | XMS REPORT | CCD ---
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 Name Role Phone POS PP Unavailable SP CCM Unavailable SP Summary Purpose Interface Exchange Insurance Providers Payer name Policy type / Coverage type POS republican ID Effective Begin Date Effective POS Date [facility] Medicare Part B POS Unknown Unknown [...] Effective Dates POS Tobacco history SNOMED CT: 6896317 Quit less SPthan 5 years ago 04/19/2015 SP Marital status Unknown M arried SP 01/30/2015 SP Number of children Unknown 2 SP 01/30/2015 SP Number of years using tobacco Unknown 20 SP 01/30/[address]: 579580 Currently SP alcohol 01/30/2015 SP Frequency of drinks SNOMED CT: 310772170 7 SP per week 01/30/2015 SP Has [...] Instructions POS tramadol 50 mg tablet SP 705519 1-2 Tablet(s) PO Q4-6H as needed SP No Stop Date Active SP Vivelle-Dot 0.05 mg/ 24 hr transdermal patch SP RxNorm: 213365 1 PATCH TD BIW SP 09/17/2018 09/11/2019 Ac tive SP 1 patch twice weekly SP tramadol 50 mg tablet SP 153040 1-2 Tablet(s) PO Q4-6H as needed SP 11/28/2018 Inactive SP hydrochlorothiazide 25 mg tablet SP RxNorm: 650432 1 TABLET(S) PO DAILY SP 08/20/2018 01/16/2019 Ac tive SP SP lisinopril 10 mg tablet SP 419761 1 Tablet(s) PO daily 07/15/2018 SP 01/10/2019 Active SP Cymbalta 60 mg capsu le,delayed release SP RxNorm: 980159 1 Capsule(s) PO daily SP 07/15/2018 01/10/2019 Ac tive SP SP Cymbalta 60 mg capsu le,delayed release SP RxNorm: 032993 1 Capsule(s) PO daily SP 07/08/2018 07/14/2018 In active SP SP Cymbalta 30 mg capsu le,delayed release SP RxNorm: 702823 1 Capsule(s) PO daily SP 06/14/2018 07/07/2018 In active SP SP hydrochlorothiazide 25 mg tablet SP RxNorm: 949688 1 TABLET(S) PO DAILY SP 04/08/2018 06/13/2018 In active SP SP Vivelle-Dot 0.05 mg/ 24 hr transdermal patch SP RxNorm: 780821 1 PATCH TD BIW SP 11/19/2017 09/16/2018 In active SP 1 patch twice weekly SP hydrochlorothiazide 25 mg tablet SP RxNorm: 593831 1 TABLET(S) PO DAILY SP 10/29/2017 03/27/2018 In active SP SP hydrochlorothiazide 25 mg tablet SP RxNorm: 910587 1 Tablet(s) PO daily SP 05/18/2017 10/28/2017 In active SP SP vitamin P64-[id number] ac id 2.5 mg-0.8 mg oral sublingual tablet SP RxNorm: 548278 1000mcg SP PO daily 04/09/2017 No Stop Date SP Active SP Vivelle-Dot 0.05 mg/ 24 hr transdermal patch SP RxNorm: 046802 1 PATCH TD BIW SP 01/01/2017 11/18/2017 In active SP 1 patch twice weekly SP omeprazole 40 mg cap parul,delayed release SP RxNorm: 293894 1 Capsule(s) PO daily SP 11/27/2016 12/26/2016 In active SP SP Levaquin 500 mg tablet SP 512215 1 Tablet(s) PO daily 11/27/2016 SP 12/03/2016 Inactive SP hydrochlorothiazide 25 mg tablet SP RxNorm: 706144 1 Tablet(s) PO daily SP 11/27/2016 05/17/2017 In active SP SP Voltaren 1 % topical gel SP RxNorm: 385605 2 Gram(s) TOP QID SP 07/12/2016 Inactive SP prednisone 10 mg tablet SP 986900 Tablet(s) PO UD 04/23/2016 SP 04/08/2017 Inactive SP Vivelle-Dot 0.05 mg/ 24 hr transdermal patch SP RxNorm: 993356 1 PATCH TD BIW SP 01/28/2016 12/31/2016 In active SP 1 patch twice weekly SP Bactrim DS 800 mg-16 0 mg tablet SP RxNorm: 512839 1 Tablet(s) PO BID SP 05/20/2015 Inactive SP Culturelle 10 billio n cell capsule SP RxNorm: 117621 1 Capsule(s) PO daily SP 05/14/2015 06/12/2015 In active SP SP Vitamin D3 1,000 uni t tablet SP RxNorm: 391557 5 (5000) Tablet(s) PO daily SP 04/18/2015 04/08/2017 In active SP SP Premarin 0.625 mg/gr am vaginal cream SP RxNorm: 800686 1 Gram(s) VAG 2 times weekly SP 02/22/2015 02/21/2015 SP SP Chantix 1 mg tablet SP 548764 1 Tablet(s) PO BID 02/22/2015 SP 02/21/2015 Inactive SP Chantix 1 mg tablet SP 756217 1 Tablet(s) PO BID 02/22/2015 SP 04/22/2015 Inactive [[facility] INGS SP NON-COVERED DRUGS -- BIN:[id number], PCN: [id number], Group: XXXXX, ID# [id number], Questions: . THIS IS NOT INSURANCE.] Premarin 0.625 mg/gr am vaginal cream SP RxNorm: 445534 1 Gram(s) VAG 2 times weekly SP 02/22/2015 09/19/2015 SP [SAVINGS FOR NON-COVERED DRUGS -- BIN:00 3585, PCN: [id number], SPGroup: XXXXX, ID# [id number], Questions: . THIS IS NOT INSURANCE.] magnesium RxNorm: SP 900 PO daily 01/30/2015 SP Inactive [SAVINGS FOR NON-COVERED DR UGS SP BIN:042440, PCN: ASPROD1, Group: XXXXX, ID# [id number], Questions: . THIS IS NOT INSURANCE.] Vivelle-Dot 0.05 mg/ 24 hr transdermal patch SP RxNorm: 811893 2 TD QW SP 01/29/2015 Inactive SP Vivelle-Dot 0.05 mg/ 24 hr transdermal patch SP RxNorm: 927528 1 Patch TD BIW SP 01/30/2015 01/27/2016 In active SP 1 patch twice weekly SP Pataday 0.2 % eye drops SP 2939273 Drop(s) OPH daily No Start Date SP Active SP olive leaf extract oral SP oral No Start Date SP Active SP Flonase Allergy Reli ef 50 mcg/actuation nasal SP RxNorm: 1 to each nare SPSpray NASAL daily No Start Date SP Active SP Singulair 10 mg tablet SP 070781 1 Tablet(s) PO daily No Start Date SP Active SP hydrochlorothiazide 25 mg tablet SP RxNorm: 722366 1 Tablet(s) PO daily SP No Start Date Active SP coenzyme Q10 200 mg capsule SP RxNorm: 439249 2 Capsule(s) PO daily No SPStart Date Active SP Zyrtec 10 mg capsule SP 6953450 1 Capsule(s) PO daily No Start SP Active SP krill oil oral RxNorm: SP oral No Start Date SP [place] [address] oral No Start Date SP 04/08/2017 Inactive SP tramadol 50 mg tablet SP 059435 1-2 Tablet(s) PO Q4-6H as needed SP Start Date 09/06/2018 Inactive SP SP magnesium oral RxNorm: SP oral No Start Date SP Inactive SP Kadi oral RxNorm: SP oral No Start Date SP Inactive SP B Complex 1 tablet SP 1 Tablet(s) PO daily No Start Date SP 04/08/2017 Inactive SP Vitamin D3 1,000 uni t tablet SP RxNorm: 088866 5 (5000) Tablet(s) PO daily SP No Start Date 04/17/2015 Inactive SP SP vitamin I71-ogpca ac id oral SP RxNorm: oral No Start D ate SP 04/08/2017 Inactive SP Calcium RxNorm: SP 1800 PO daily No Start Date SP Inactive SP Kadi-D 12 Hour oral SP 205444 oral No Start Date SP 01/29/2015 Inactive [...] Item Code Result Date POS Comp Metabolic Lay153 NA POS 140 mEq/L 06/25/2018 SP Comp Metabolic Edi993 K SP 3.5 mEq/L 06/25/2018 SP Comp Metabolic Zim998 CL SP 101 mEq/L 06/25/2018 SP Comp Metabolic Qhc344 CO2 SP 29.0 mEq/L 06/25/2018 SP Comp Metabolic Pfx689 AN ION GAP SP 14 06/25/2018 SP Comp Metabolic Ieg409 GL UCOSE SP 107 mg/dL 06/25/2018 SP Comp Metabolic Uww338 Cr eat SP 0.6 mg/dL 06/25/2018 SP Comp Metabolic Ehf097 eG FR SP 103 ml/min/1.73m2 06/03 SP Comp Metabolic Pul956 BUN SP 10 mg/dL 06/25/2018 SP Comp Metabolic Okn248 B/ C Ratio SP 16.4 Ratio 06/25/2018 SP Comp Metabolic Afa000 CA LCIUM SP 9.1 mg/dL 06/25/2018 SP Comp Metabolic Xsp424 AL K PHOS SP 65 U/L 06/25/2018 SP Comp Metabolic Mkh173 T(SGOT) SP 17 U/L 06/25/2018 SP Comp Metabolic Uzw062 AL T(SGPT) SP 13 U/L 06/25/2018 SP Comp Metabolic Kuq933 BI LI T SP 0.5 mg/dL 06/25/2018 SP Comp Metabolic Ebf395 AL BUMIN SP 3.8 g/dL 06/25/2018 SP Comp Metabolic Wjp925 TP RO SP 6.6 g/dL 06/25/2018 SP Comp Metabolic Pkp018 GL OB SP 2.8 g/dL 06/25/2018 SP Comp Metabolic Nqn444 A/ G Ratio SP 1.3 Ratio 06/25/2018 SP Comp Metabolic Sar020 Os mo SP 279 mOsmo 06/25/2018 SP [...] % 06/25/2018 SP Cbc With Differential Ord2 Lymph% SP 25.9 % 06/25/2018 SP Cbc With Differential Ord2 MCV SP 99.8 fl 06/25/2018 SP Cbc With Differential Ord2 Sherman% SP 10.6 % 06/25/2018 SP Cbc With [...] K/ul 06/25/2018 SP Cbc With Differential Ord2 RDW SP 13.8 % 06/25/2018 SP Cbc With Differential Ord2 Lymph ABS# SP 1.59 K/ul 06/25/2018 SP Cbc With Differential Ord2 Sherman ABS# SP 0.7 K/ul 06/25/2018 SP Cbc [...] pg 04/09/2017 SP Cbc With Differential Ord2 Sherman% SP 7.9 % 04/09/2017 SP Cbc With Differential Ord2 MCHC SP 32.3 pg 04/09/2017 SP Cbc With Differential Ord2 Eos% SP 1.7 % 04/09/2017 SP Cbc With Differential Ord2 Baso% SP 0.2 % 04/09/2017 SP Cbc With Differential Ord2 PLT SP 280 K/ul 04/09/2017 SP Cbc With Differential Ord2 Neut ABS# SP 5.06 K/ul 04/09/2017 SP Cbc With Differential Ord2 RDW SP 14.2 % 04/09/2017 SP Cbc With Differential Ord2 Lymph ABS# SP 2.32 K/ul 04/09/2017 SP Cbc With Differential Ord2 Sherman ABS# SP 0.7 K/ul 04/09/2017 SP Cbc With Differential Ord2 Eos ABS# SP 0.1 K/ul 04/09/2017 SP Cbc With Differential Ord2 Baso ABS# SP 0.0 K/ul 04/09/2017 SP Tsh Ord6 hTSH II SP 1.04 uIU/mL 04/09/2017 SP Comp Metabolic Zcf742 NA SP 140 mEq/L 04/09/2017 SP Comp Metabolic Bbb116 K SP 3.7 mEq/L 04/09/2017 SP Comp Metabolic Fyg776 CL SP 104 mEq/L 04/09/2017 SP Comp Metabolic Krx008 CO2 SP 28.0 mEq/L 04/09/2017 SP Comp Metabolic Ust628 AN ION GAP SP 12 04/09/2017 SP Comp Metabolic Xwu605 GL UCOSE SP 133 mg/dL 04/09/2017 SP Comp Metabolic Hxf363 Cr eat SP 0.6 mg/dL 04/09/2017 SP Comp Metabolic Cvd946 eG FR SP 114 ml/min/1.73m2 06/2017 SP Comp Metabolic Nsg255 BUN SP 13 mg/dL 04/09/2017 SP Comp Metabolic Rlr000 B/ C Ratio SP 23.2 Ratio 04/09/2017 SP Comp Metabolic Bsb396 CA LCIUM SP 9.2 mg/dL 04/09/2017 SP Comp Metabolic Bqm101 AL K PHOS SP 53 U/L 04/09/2017 SP Comp Metabolic Yty199 T(SGOT) SP 21 U/L 04/09/2017 SP Comp Metabolic Kal867 AL T(SGPT) SP 18 U/L 04/09/2017 SP Comp Metabolic Fin080 BI LI T SP 0.4 mg/dL 04/09/2017 SP Comp Metabolic Iho447 AL BUMIN SP 4.0 g/dL 04/09/2017 SP Comp Metabolic Cic087 TP RO SP 7.0 g/dL 04/09/2017 SP Comp Metabolic Kaa082 GL OB SP 3.0 g/dL 04/09/2017 SP Comp Metabolic Zjs046 A/ G Ratio SP 1.4 Ratio 04/09/2017 SP Comp Metabolic Nlk128 Os mo SP 281 mOsmo 04/09/2017 SP [...] ADMIN PNEUMOCOCCAL V ACCINE SP SNOMED CT: 01667380 SPCPT-4: G0009 10/13/2017 SP Pneumococcal Polysac charide Vaccine, 23-Valent, Ad SP CPT-4: 56425 10/13/2017 SP ADMIN PNEUMOCOCCAL V ACCINE SP SNOMED CT: 59724511 SPCPT-4: G0009 12/10/2016 SP PNEUMOCOCCAL VACC 13 NORY IM SP SNOMED CT: 19072231 SPCPT-4: 96052 12/10/2016 SP TRIAMCINOLONE ACET I [place] NOS SP CPT-4: J3301 05/14/2016 SP DRAIN/INJECT JOINT/B URSA SP CPT-4: 80147 05/14/2016 SP PPPS, SUBSEQ VISIT CPT- SP [...] 1: SP Code: 8480-6 BMI: SP Code: 35762-4 Heart SP 1: 89 bpm Height: SP [...] 07/21/2016 recent pneumonia- SP in ER in [place] cough Location in the [facility] SP 06/20/2016 None SP cough [...] Performer Loca tion POS Codes Date POS [id number]) 50940 EST. P ATIENT, LEVEL III SPDiagnosis: Essential (primary) hypertension[ICD10: I10] Diagnosis: Fibromyalgia[ICD10: M79.7] Diagnosis: Primary generalized (osteo)arthritis[ICD10: M15.0] [facility] SP CPT-4: 78764 07/15/2018 SP ([id number]) 23400 EST. P ATIENT, LEVEL IV SPDiagnosis: Essential (primary) hypertension[ICD10: I10] Diagnosis: Fibromyalgia[ICD10: M79.7] Diagnosis: Primary generalized (osteo)arthritis[ICD10: M15.0] [facility] SP CPT-4: 34388 06/14/2018 SP ([id number]) 96544 EST. P ATIENT, LEVEL IV SPDiagnosis: Encounter for general adult medical examination with abnormal findings[ICD10: Z00.01] Diagnosis: Essential (primary) hypertension[ICD10: I10] Diagnosis: Nonscarring hair loss, unspecified[ICD10: L65.9] [facility] MD, [facility] CPT-4: 63077 04/09/2017 SP ([id number]) 76337 EST. P ATIENT, LEVEL III SPDiagnosis: Essential (primary) hypertension[ICD10: I10] Diagnosis: Acute recurrent maxillary sinusitis[ICD10: J01.01] [facility] MD, [facility] CPT-4: 49855 11/27/2016 SP ([id number]) 70319 EST. P ATIENT, LEVEL IV SPDiagnosis: Dyspnea, unspecified[ICD10: R06.00] Diagnosis: Snoring[ICD10: R06.83] Diagnosis: Cough[ICD10: R05] Diagnosis: Personal history of nicotine dependence[ICD10: Z87.891] Diagnosis: Hypersomnia, unspecified[ICD10: G47.10] [facility] MD, [facility] CPT-4: 62939 07/21/2016 SP ([id number]) 39071 EST. P ATIENT, LEVEL III SPDiagnosis: Cough[ICD10: R05] Diagnosis: Other effects of high altitude, initial encounter[ICD10: T70.29XA] Naheed LEON MD, [facility] CPT-4: 30978 06/20/2016 SP ([id number]) 62225 EST. P ATIENT, LEVEL III SPDiagnosis: Pain in left wrist[ICD10: M25.532] Diagnosis: Pain in left finger(s)[ICD10: M79.645] Diagnosis: Primary osteoarthritis, left hand[ICD10: M19.042] [facility] MD, [facility] CPT-4: 11470 05/14/2016 [place] [id number] EST. PATIENT, LEVEL III SPDiagnosis: Pain in left wrist[ICD10: M25.532] Diagnosis: Pain in left finger(s)[ICD10: M79.645] [facility] SP4: 89840 04/23/2016 SP ([id number]) 68038 EST. P ATIENT, LEVEL II SPDiagnosis: INSECT BITE NEC-INFECTED[ICD9: 919.5] [facility] SP4: 93983 05/14/2015 SP ([id number]) OFFICE VISI T, NEW - LEVEL 3 [...] today 07/15/2018 SP Appointment: Naheed Smith SPWPtel: [address] [place] [address] [id number] (15 min) Moderate SP 07/15/2018 SP Patient [...] 06/14/2018 SP App[facility]ment: [facility] [phone] [phone] (30 min) Complex SP 06/14/2018 SP Patient Education: Patient Medication Summary SP Completed 06/14/2018 SP Care Plan: COMPLETE CBC AUTOMATED LOINC : SP Pending 06/14/2018 SP Care Plan: SCREENINGMAMMOGRAPHYDIGITAL SP : 67912-4 Pending 06/14/2018 SP Appointment: Injection SP 10/13/2017 [...] TSH 04/09/2017 SP Appointment: Naheed Smith SPWPtel: [phone] (30 min) Complex SP 04/09/2017 SP [...] improvement. 11/27/2016 SP Appointment: Naheed Smith SPWPtel: [phone] (30 min) Complex SP 11/27/2016 SP [...] : SP Pending 07/21/2016 SP Visit Plan: Rgzdn-ccnysansq-[id number] zpack Altitude sickness- SP also improving-less SOA, [...] 05/14/2016 SP Appointment: [facility] SPWPtel: [phone] [facility] [id number] [place] (15 min) Moderate SP 05/14/2016 SP [...] 04/23/2016 SP Appointment: Naheed Smith SPWPtel: [phone] [facility] [id number] [place] (30 min) Complex SP 04/23/2016 SP [...] colonoscopy with Dr. Mcneil. 04/18/2015 SP Appointment: [facility] - SP Wellness Visit 04/18/2015 SP Patient [...] understanding of plan. Plan to schedule [facility] this summer SP Plan to [...] for increased redness, swelling, warmth, discharge. . Oqabl-aniamvixd-vn lauren young SP Altitude sickness-symptoms also improving-less SOA, less headache-instructed patient and to rest over the week-increase fluids and call Thursday if symptoms are not improved. Patient verbalized understanding of plan.
--- OUTSIDE RECORDS SUMMARY | 2019-10-18 12:57 | XMS REPORT | CCD ---
Author Author Naheed Smith POS Organization [facility] SP Address [address] [place] [address] Phone SP Care Team Providers Care Card Doffer Name Role Phone POS PP Unavailable SP CCM Unavailable SP Summary Purpose Interface Exchange Insurance Providers Payer name Policy type / Coverage type POS democrat ID Effective Begin Date Effective POS Date [facility] Medicare Part B POS Unknown Unknown SP [...] Effective Dates POS Tobacco history SNOMED CT: 5436082 Quit less SPthan 5 years ago 04/19/2015 SP Marital status Unknown M arried SP 01/30/2015 SP Number of children Unknown 2 SP 01/30/2015 SP Number of years using tobacco Unknown 20 SP 01/30/[address]: 234181 Currently SP alcohol 01/30/2015 SP Frequency of drinks SNOMED CT: 598259114 7 SP per week 01/30/2015 SP Has [...] Date Sta tus POS Fill Instructions POS Vivelle-Dot 0.05 mg/ 24 hr transdermal patch SP RxNorm: 435725 1 PATCH TD BIW SP 09/17/2018 09/11/2019 Ac tive SP 1 patch twice weekly SP tramadol 50 mg tablet SP 171815 1-2 Tablet(s) PO Q4-6H as needed SP No Stop Date Active SP hydrochlorothiazide 25 mg tablet SP RxNorm: 119953 1 TABLET(S) PO DAILY SP 08/20/2018 01/16/2019 Ac tive SP SP lisinopril 10 mg tablet SP 273061 1 Tablet(s) PO daily 07/15/2018 SP 01/10/2019 Active SP Cymbalta 60 mg capsu le,delayed release SP RxNorm: 802246 1 Capsule(s) PO daily SP 07/15/2018 01/10/2019 Ac tive SP SP Cymbalta 60 mg capsu le,delayed release SP RxNorm: 202998 1 Capsule(s) PO daily SP 07/08/2018 07/14/2018 In active SP SP Cymbalta 30 mg capsu le,delayed release SP RxNorm: 501878 1 Capsule(s) PO daily SP 06/14/2018 07/07/2018 In active SP SP hydrochlorothiazide 25 mg tablet SP RxNorm: 779001 1 TABLET(S) PO DAILY SP 04/08/2018 06/13/2018 In active SP SP Vivelle-Dot 0.05 mg/ 24 hr transdermal patch SP RxNorm: 012214 1 PATCH TD BIW SP 11/19/2017 09/16/2018 In active SP 1 patch twice weekly SP hydrochlorothiazide 25 mg tablet SP RxNorm: 099062 1 TABLET(S) PO DAILY SP 10/29/2017 03/27/2018 In active SP SP hydrochlorothiazide 25 mg tablet SP RxNorm: 056703 1 Tablet(s) PO daily SP 05/18/2017 10/28/2017 In active SP SP vitamin H42-tqwqu ac id 2.5 mg-0.8 mg oral sublingual tablet SP RxNorm: 918039 1000mcg SP PO daily 04/09/2017 No Stop Date SP Active SP Vivelle-Dot 0.05 mg/ 24 hr transdermal patch SP RxNorm: 802475 1 PATCH TD BIW SP 01/01/2017 11/18/2017 In active SP 1 patch twice weekly SP omeprazole 40 mg cap parul,delayed release SP RxNorm: 539948 1 Capsule(s) PO daily SP 11/27/2016 12/26/2016 In active SP SP Levaquin 500 mg tablet SP 735101 1 Tablet(s) PO daily 11/27/2016 SP 12/03/2016 Inactive SP hydrochlorothiazide 25 mg tablet SP RxNorm: 883096 1 Tablet(s) PO daily SP 11/27/2016 05/17/2017 In active SP SP Voltaren 1 % topical gel SP RxNorm: 012238 2 Gram(s) TOP QID SP 07/12/2016 Inactive SP prednisone 10 mg tablet SP 286608 Tablet(s) PO UD 04/23/2016 SP 04/08/2017 Inactive SP Vivelle-Dot 0.05 mg/ 24 hr transdermal patch SP RxNorm: 169561 1 PATCH TD BIW SP 01/28/2016 12/31/2016 In active SP 1 patch twice weekly SP Bactrim DS 800 mg-16 0 mg tablet SP RxNorm: 504498 1 Tablet(s) PO BID SP 05/20/2015 Inactive SP Culturelle 10 billio n cell capsule SP RxNorm: 547385 1 Capsule(s) PO daily SP 05/14/2015 06/12/2015 In active SP SP Vitamin D3 1,000 uni t tablet SP RxNorm: 458900 5 (5000) Tablet(s) PO daily SP 04/18/2015 04/08/2017 In active SP SP Premarin 0.625 mg/gr am vaginal cream SP RxNorm: 198034 1 Gram(s) VAG 2 times weekly SP 02/22/2015 02/21/2015 SP SP Chantix 1 mg tablet SP 400600 1 Tablet(s) PO BID 02/22/2015 SP 02/21/2015 Inactive SP Chantix 1 mg tablet SP 005691 1 Tablet(s) PO BID 02/22/2015 SP 04/22/2015 Inactive [SHAHIDA INGS SP NON-COVERED DRUGS -- BIN:124443, PCN: [id number], Group: XXXXX, ID# [id number], Questions: . THIS IS NOT INSURANCE.] Premarin 0.625 mg/gr am vaginal cream SP RxNorm: 138852 1 Gram(s) VAG 2 times weekly SP 02/22/2015 09/19/2015 SP [SAVINGS FOR NON-COVERED DRUGS -- BIN:00 3585, PCN: [id number], SPGroup: XXXXX, ID# [id number], Questions: . THIS IS NOT INSURANCE.] magnesium RxNorm: SP 900 PO daily 01/30/2015 SP Inactive [SAVINGS FOR NON-COVERED DR UGS SP BIN:020003, PCN: ASPROD1, Group: XXXXX, ID# [id number], Questions: . THIS IS NOT INSURANCE.] Vivelle-Dot 0.05 mg/ 24 hr transdermal patch SP RxNorm: 860551 2 TD QW SP 01/29/2015 Inactive SP Vivelle-Dot 0.05 mg/ 24 hr transdermal patch SP RxNorm: 023441 1 Patch TD BIW SP 01/30/2015 01/27/2016 In active SP 1 patch twice weekly SP Pataday 0.2 % eye drops SP 6279147 Drop(s) OPH daily No Start Date SP Active SP olive leaf extract oral SP oral No Start Date SP Active SP Flonase Allergy Reli ef 50 mcg/actuation nasal SP RxNorm: 1 to each nare SPSpray NASAL daily No Start Date SP Active SP Singulair 10 mg tablet SP 847912 1 Tablet(s) PO daily No Start Date SP Active SP hydrochlorothiazide 25 mg tablet SP RxNorm: 449310 1 Tablet(s) PO daily SP No Start Date Active SP coenzyme Q10 200 mg capsule SP RxNorm: 119866 2 Capsule(s) PO daily No SPStart Date Active SP Zyrtec 10 mg capsule SP 4211995 1 Capsule(s) PO daily No Start SP Active SP krill oil oral RxNorm: SP oral No Start Date SP [place] [address] oral No Start Date SP 04/08/2017 Inactive SP tramadol 50 mg tablet SP 965609 1-2 Tablet(s) PO Q4-6H as needed SP Start Date 09/06/2018 Inactive SP SP magnesium oral RxNorm: SP oral No Start Date SP Inactive SP Kadi oral RxNorm: SP oral No Start Date SP Inactive SP B Complex 1 tablet SP 1 Tablet(s) PO daily No Start Date SP 04/08/2017 Inactive SP Vitamin D3 1,000 uni t tablet SP RxNorm: 310200 5 (5000) Tablet(s) PO daily SP No Start Date 04/17/2015 Inactive SP SP vitamin V28-rojsc ac id oral SP RxNorm: oral No Start D ate SP 04/08/2017 Inactive SP Calcium RxNorm: SP 1800 PO daily No Start Date SP Inactive SP Kadi-D 12 Hour oral SP 093500 oral No Start Date SP 01/29/2015 Inactive SP Medication Administered No Medication Administered data Immunizations Vaccine Codes Date Status POS Influenza CVX: 141 12/15 POS completed SP Pneumococcal (Adult) CVX: 33 10/13/2017 [...] Item Code Result Date POS Comp Metabolic Yxq176 NA POS 140 mEq/L 06/25/2018 SP Comp Metabolic Gef190 K SP 3.5 mEq/L 06/25/2018 SP Comp Metabolic Ade059 CL SP 101 mEq/L 06/25/2018 SP Comp Metabolic Dqj148 CO2 SP 29.0 mEq/L 06/25/2018 SP Comp Metabolic Rdt791 AN ION GAP SP 14 06/25/2018 SP Comp Metabolic Kpe549 GL UCOSE SP 107 mg/dL 06/25/2018 SP Comp Metabolic Imk022 Cr eat SP 0.6 mg/dL 06/25/2018 SP Comp Metabolic Ppf791 eG FR SP 103 ml/min/1.73m2 06/03 SP Comp Metabolic Oqm696 BUN SP 10 mg/dL 06/25/2018 SP Comp Metabolic Rru897 B/ C Ratio SP 16.4 Ratio 06/25/2018 SP Comp Metabolic Fgj118 CA LCIUM SP 9.1 mg/dL 06/25/2018 SP Comp Metabolic Tcr709 AL K PHOS SP 65 U/L 06/25/2018 SP Comp Metabolic Pap496 T(SGOT) SP 17 U/L 06/25/2018 SP Comp Metabolic Ula497 AL T(SGPT) SP 13 U/L 06/25/2018 SP Comp Metabolic Lov994 BI LI T SP 0.5 mg/dL 06/25/2018 SP Comp Metabolic Yes542 AL BUMIN SP 3.8 g/dL 06/25/2018 SP Comp Metabolic Eah937 TP RO SP 6.6 g/dL 06/25/2018 SP Comp Metabolic Qxd495 GL OB SP 2.8 g/dL 06/25/2018 SP Comp Metabolic Bcd885 A/ G Ratio SP 1.3 Ratio 06/25/2018 SP Comp Metabolic Bwg907 Os mo SP 279 mOsmo 06/25/2018 SP [...] g/dl 06/25/2018 SP Cbc With Differential Ord2 Neut% SP 51.1 % 06/25/2018 SP Cbc With Differential Ord2 HCT SP 40.5 % 06/25/2018 SP Cbc With Differential Ord2 Lymph% SP 25.9 % 06/25/2018 SP Cbc With Differential Ord2 MCV SP 99.8 fl 06/25/2018 SP Cbc With Differential Ord2 MCH SP 32.8 pg 06/25/2018 SP Cbc With Differential Ord2 [place]% SP 10.6 % 06/25/2018 SP Cbc With Differential Ord2 Eos% [...] K/ul 06/25/2018 SP Cbc With Differential Ord2 [place] ABS# SP 0.7 K/ul 06/25/2018 SP Cbc [...] pg 04/09/2017 SP Cbc With Differential Ord2 [place]% SP 7.9 % 04/09/2017 SP Cbc With [...] K/ul 04/09/2017 SP Cbc With Differential Ord2 [place] ABS# SP 0.7 K/ul 04/09/2017 SP Cbc With Differential Ord2 Eos ABS# SP 0.1 K/ul 04/09/2017 SP Cbc With Differential Ord2 Baso ABS# SP 0.0 K/ul 04/09/2017 SP Tsh Ord6 hTSH II SP 1.04 uIU/mL 04/09/2017 SP Comp Metabolic Was967 NA SP 140 mEq/L 04/09/2017 SP Comp Metabolic Fhw429 K SP 3.7 mEq/L 04/09/2017 SP Comp Metabolic Php277 CL SP 104 mEq/L 04/09/2017 SP Comp Metabolic Sai681 CO2 SP 28.0 mEq/L 04/09/2017 SP Comp Metabolic Bej455 AN ION GAP SP 12 04/09/2017 SP Comp Metabolic Kth923 GL UCOSE SP 133 mg/dL 04/09/2017 SP Comp Metabolic Pzd158 Cr eat SP 0.6 mg/dL 04/09/2017 SP Comp Metabolic Mib939 eG FR SP 114 ml/min/1.73m2 06/2017 SP Comp Metabolic Fhn292 BUN SP 13 mg/dL 04/09/2017 SP Comp Metabolic Nvc765 B/ C Ratio SP 23.2 Ratio 04/09/2017 SP Comp Metabolic Ezy881 CA LCIUM SP 9.2 mg/dL 04/09/2017 SP Comp Metabolic Stc375 AL K PHOS SP 53 U/L 04/09/2017 SP Comp Metabolic Qjh426 T(SGOT) SP 21 U/L 04/09/2017 SP Comp Metabolic Aya265 AL T(SGPT) SP 18 U/L 04/09/2017 SP Comp Metabolic Bxs126 BI LI T SP 0.4 mg/dL 04/09/2017 SP Comp Metabolic Fzo125 AL BUMIN SP 4.0 g/dL 04/09/2017 SP Comp Metabolic Xpt827 TP RO SP 7.0 g/dL 04/09/2017 SP Comp Metabolic Qfw959 GL OB SP 3.0 g/dL 04/09/2017 SP Comp Metabolic Vku584 A/ G Ratio SP 1.4 Ratio 04/09/2017 SP Comp Metabolic Vkd415 Os mo SP 281 mOsmo 04/09/2017 SP [...] Lymphatic neck SP Overall: anterior cervical chain jennifre ign SP 07/15/2018 None SP Full Exam [...] ADMIN PNEUMOCOCCAL V ACCINE SP SNOMED CT: 56143222 SPCPT-4: G0009 10/13/2017 SP Pneumococcal Polysac charide Vaccine, 23-Valent, Ad SP CPT-4: 50986 10/13/2017 SP ADMIN PNEUMOCOCCAL V ACCINE SP SNOMED CT: 12137946 SPCPT-4: G0009 12/10/2016 SP PNEUMOCOCCAL VACC 13 NORY IM SP SNOMED CT: 06800839 SPCPT-4: 33018 12/10/2016 SP TRIAMCINOLONE ACET I [place] NOS SP CPT-4: J3301 05/14/2016 SP DRAIN/INJECT JOINT/B URSA SP CPT-4: 36826 05/14/2016 SP PPPS, SUBSEQ VISIT CPT- SP [...] 1: SP Code: 8480-6 BMI: SP Code: 59882-9 Heart SP 1: 89 bpm Height: SP [...] 07/21/2016 recent pneumonia- SP in ER in [place] cough Location in the [facility] SP 06/20/2016 None SP cough Quality constant [...] Performer Loca tion POS Codes Date POS [id number]) [id number] EST. P ATIENT, LEVEL III SPDiagnosis: Essential (primary) hypertension[ICD10: I10] Diagnosis: Fibromyalgia[ICD10: M79.7] Diagnosis: Primary generalized (osteo)arthritis[ICD10: M15.0] [facility] SP CPT-4: 91076 07/15/2018 [place] [phone]) 05408 EST. P ATIENT, LEVEL IV SPDiagnosis: Essential (primary) hypertension[ICD10: I10] Diagnosis: Fibromyalgia[ICD10: M79.7] Diagnosis: Primary generalized (osteo)arthritis[ICD10: M15.0] [facility] SP CPT-4: 92480 06/14/2018 [place] [id number]) 48947 EST. P ATIENT, LEVEL IV SPDiagnosis: Encounter for general adult medical examination with abnormal findings[ICD10: Z00.01] Diagnosis: Essential (primary) hypertension[ICD10: I10] Diagnosis: Nonscarring hair loss, unspecified[ICD10: L65.9] Naheed Wang MD, [facility] CPT-4: 17584 04/09/2017 SP ([id number]) 14961 EST. P ATIENT, LEVEL III SPDiagnosis: Essential (primary) hypertension[ICD10: I10] Diagnosis: Acute recurrent maxillary sinusitis[ICD10: J01.01] Naheed Wang MD, [facility] CPT-4: 32845 11/27/2016 SP ([id number]) 24499 EST. P ATIENT, LEVEL IV SPDiagnosis: Dyspnea, unspecified[ICD10: R06.00] Diagnosis: Snoring[ICD10: R06.83] Diagnosis: Cough[ICD10: R05] Diagnosis: Personal history of nicotine dependence[ICD10: Z87.891] Diagnosis: Hypersomnia, unspecified[ICD10: G47.10] Naheed Wang MD, [facility] CPT-4: 93813 07/21/2016 SP ([id number]) 86168 EST. P ATIENT, LEVEL III SPDiagnosis: Cough[ICD10: R05] Diagnosis: Other effects of high altitude, initial encounter[ICD10: T70.29XA] Naheed LEON MD, [facility] CPT-4: 62219 06/20/2016 SP (03186) 38639 EST. P ATIENT, LEVEL III SPDiagnosis: Pain in left wrist[ICD10: M25.532] Diagnosis: Pain in left finger(s)[ICD10: M79.645] Diagnosis: Primary osteoarthritis, left hand[ICD10: M19.042] [facility] Wang MD, [facility] CPT-4: 01047 05/14/[place] [id number] EST. PATIENT, LEVEL III SPDiagnosis: Pain in left wrist[ICD10: M25.532] Diagnosis: Pain in left finger(s)[ICD10: M79.645] Clau Wang MD, [facility] SP4: 52904 04/23/2016 SP ([phone] 89342 EST. P ATIENT, LEVEL II SPDiagnosis: INSECT BITE NEC-INFECTED[ICD9: 919.5] [facility] SP4: 08553 05/14/2015 SP ([id number]) OFFICE JORGE BAZZI - LEVEL 3 SPDiagnosis: [...] today 07/15/2018 SP Appointment: Naheed Smith SPWPtel: [address] [place], [place] [id number] (15 min) Moderate SP 07/15/2018 SP Patient [...] plan. 06/14/2018 SP Appointment: Naheed Smith SPWPtel[facility] [phone] (30 min) Complex SP 06/14/2018 SP Patient Education: Patient Medication Summary SP Completed 06/14/2018 SP Care Plan: COMPLETE CBC AUTOMATED LOINC : SP Pending 06/14/2018 SP Care Plan: SCREENINGMAMMOGRAPHYDIGITAL SP : [id number] Pending 06/14/2018 SP Appointment: Injection SP 10/13/2017 [...] TSH 04/09/2017 SP Appointment: Naheed Smith SPWPtel[facility] [phone] [phone] (30 min) Complex SP 04/09/2017 SP Patient [...] improvement. 11/27/2016 SP Appointment: Naheed Smith SPWPtel: [facility] [place][note 2]5 [facility] [id number] (30 min) Complex SP 11/27/2016 SP Patient [...] : SP Pending 07/21/2016 SP Visit Plan: Wgonq-ohbtlbtus-gkuyjz pack Altitude sickness- SP also improving-less SOA, less [...] 05/14/2016 SP Appointment: [facility] Wang SPWPtel: [phone] [facility] [id number] [place] (15 min) Moderate SP 05/14/2016 SP [...] or with any concerns. 04/23/2016 SP Appointment: LuisNaheed SPWPtel: [phone] [facility] [id number] (30 min) Complex SP 04/23/2016 SP Patient [...] colonoscopy with Dr. Mcneil. 04/18/2015 SP Appointment: [facility] - SP Wellness Visit 04/18/2015 [...] understanding of plan. Plan to schedule [facility] medicare summer SP Plan to do pneumonia vaccine [...] for increased redness, swelling, warmth, discharge. . Mtncw-ovpymshvg-nw lauren young SP Altitude sickness-symptoms also improving-less SOA, less headache-instructed patient and to rest over the week-increase fluids and call Thursday if symptoms are not improved. Patient verbalized understanding of plan.
--- OUTSIDE RECORDS SUMMARY | 2019-10-18 12:59 | XMS REPORT | CCD ---
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 Name Role Phone POS PP Unavailable SP CCM Unavailable SP Summary Purpose Interface Exchange Insurance Providers Payer name Policy type / Coverage type POS constitution party ID Effective Begin Date Effective POS Date [facility] Medicare Part B POS Unknown Unknown SP [...] Effective Dates POS Tobacco history SNOMED CT: 4637456 Quit less SPthan 5 years ago 04/19/2015 SP Marital status Unknown M arried SP 01/30/2015 SP Number of children Unknown 2 SP 01/30/2015 SP Number of years using tobacco Unknown 20 SP 01/30/[address]: 474381 Currently SP alcohol 01/30/2015 SP Frequency of drinks SNOMED CT: 313448406 7 SP per week 01/30/2015 SP Has [...] Stop Date Sta POS Fill Instructions POS tramadol 50 mg tablet SP 967110 1-2 Tablet(s) PO Q4-6H as needed SP No Stop Date Active SP hydrochlorothiazide 25 mg tablet SP RxNorm: 587482 1 TABLET(S) PO DAILY SP 08/20/2018 01/16/2019 Ac tive SP SP lisinopril 10 mg tablet SP 182409 1 Tablet(s) PO daily 07/15/2018 SP 01/10/2019 Active SP Cymbalta 60 mg capsu le,delayed release SP RxNorm: 797060 1 Capsule(s) PO daily SP 07/15/2018 01/10/2019 Ac tive SP SP Cymbalta 60 mg capsu le,delayed release SP RxNorm: 016199 1 Capsule(s) PO daily SP 07/08/2018 07/14/2018 In active SP SP Cymbalta 30 mg capsu le,delayed release SP RxNorm: 008793 1 Capsule(s) PO daily SP 06/14/2018 07/07/2018 In active SP SP hydrochlorothiazide 25 mg tablet SP RxNorm: 537315 1 TABLET(S) PO DAILY SP 04/08/2018 06/13/2018 In active SP SP Vivelle-Dot 0.05 mg/ 24 hr transdermal patch SP RxNorm: 745859 1 PATCH TD BIW SP 11/19/2017 11/13/2018 Ac tive SP 1 patch twice weekly SP hydrochlorothiazide 25 mg tablet SP RxNorm: 127975 1 TABLET(S) PO DAILY SP 10/29/2017 03/27/2018 In active SP SP hydrochlorothiazide 25 mg tablet SP RxNorm: 829159 1 Tablet(s) PO daily SP 05/18/2017 10/28/2017 In active SP SP vitamin P24-ygzst ac id 2.5 mg-0.8 mg oral sublingual tablet SP RxNorm: 278705 1000mcg SP PO daily 04/09/2017 No Stop Date SP Active SP Vivelle-Dot 0.05 mg/ 24 hr transdermal patch SP RxNorm: 078718 1 PATCH TD BIW SP 01/01/2017 11/18/2017 In active SP 1 patch twice weekly SP omeprazole 40 mg cap parul,delayed release SP RxNorm: 371808 1 Capsule(s) PO daily SP 11/27/2016 12/26/2016 In active SP SP Levaquin 500 mg tablet SP 237904 1 Tablet(s) PO daily 11/27/2016 SP 12/03/2016 Inactive SP hydrochlorothiazide 25 mg tablet SP RxNorm: 077327 1 Tablet(s) PO daily SP 11/27/2016 05/17/2017 In active SP SP Voltaren 1 % topical gel SP RxNorm: 625473 2 Gram(s) TOP QID SP 07/12/2016 Inactive SP prednisone 10 mg tablet SP 883360 Tablet(s) PO UD 04/23/2016 SP 04/08/2017 Inactive SP Vivelle-Dot 0.05 mg/ 24 hr transdermal patch SP RxNorm: 055581 1 PATCH TD BIW SP 01/28/2016 12/31/2016 In active SP 1 patch twice weekly SP Bactrim DS 800 mg-16 0 mg tablet SP RxNorm: 934693 1 Tablet(s) PO BID SP 05/20/2015 Inactive SP Culturelle 10 billio n cell capsule SP RxNorm: 944668 1 Capsule(s) PO daily SP 05/14/2015 06/12/2015 In active SP SP Vitamin D3 1,000 uni t tablet SP RxNorm: 778975 5 (5000) Tablet(s) PO daily SP 04/18/2015 04/08/2017 In active SP SP Premarin 0.625 mg/gr am vaginal cream SP RxNorm: 815943 1 Gram(s) VAG 2 times weekly SP 02/22/2015 02/21/2015 SP SP Chantix 1 mg tablet SP 663748 1 Tablet(s) PO BID 02/22/2015 SP 02/21/2015 Inactive SP Chantix 1 mg tablet SP 159729 1 Tablet(s) PO BID 02/22/2015 SP 04/22/2015 Inactive [[facility]IDA INGS SP NON-COVERED DRUGS -- BIN:[id number], PCN: [id number], Group: XXXXX, ID# [id number], Questions: . THIS IS NOT INSURANCE.] Premarin 0.625 mg/gr am vaginal cream SP RxNorm: 351239 1 Gram(s) VAG 2 times weekly SP 02/22/2015 09/19/2015 SP [SAVINGS FOR NON-COVERED DRUGS -- BIN:00 3585, PCN: [id number], SPGroup: XXXXX, ID# [id number], Questions: . THIS IS NOT INSURANCE.] magnesium RxNorm: SP 900 PO daily 01/30/2015 SP Inactive [SAVINGS FOR NON-COVERED DR UGS SP BIN:807172, PCN: ASPROD1, Group: XXXXX, ID# [id number], Questions: . THIS IS NOT INSURANCE.] Vivelle-Dot 0.05 mg/ 24 hr transdermal patch SP RxNorm: 808133 2 TD QW SP 01/29/2015 Inactive SP Vivelle-Dot 0.05 mg/ 24 hr transdermal patch SP RxNorm: 520496 1 Patch TD BIW SP 01/30/2015 01/27/2016 In active SP 1 patch twice weekly SP Pataday 0.2 % eye drops SP 7700319 Drop(s) OPH daily No Start Date SP Active SP olive leaf extract oral SP oral No Start Date SP Active SP Flonase Allergy Reli ef 50 mcg/actuation nasal SP RxNorm: 1 to each nare SPSpray NASAL daily No Start Date SP Active SP Singulair 10 mg tablet SP 701867 1 Tablet(s) PO daily No Start Date SP Active SP hydrochlorothiazide 25 mg tablet SP RxNorm: 942614 1 Tablet(s) PO daily SP No Start Date Active SP coenzyme Q10 200 mg capsule SP RxNorm: 272653 2 Capsule(s) PO daily No SPStart Date Active SP Zyrtec 10 mg capsule SP 1862443 1 Capsule(s) PO daily No Start SP Active SP krill oil oral RxNorm: SP oral No Start Date SP [place] [address] oral No Start Date SP 04/08/2017 Inactive SP tramadol 50 mg tablet SP 399182 1-2 Tablet(s) PO Q4-6H as needed SP Start Date 09/06/2018 Inactive SP SP magnesium oral RxNorm: SP oral No Start Date SP Inactive SP Kadi oral RxNorm: SP oral No Start Date SP Inactive SP B Complex 1 tablet SP 1 Tablet(s) PO daily No Start Date SP 04/08/2017 Inactive SP Vitamin D3 1,000 uni t tablet SP RxNorm: 777778 5 (5000) Tablet(s) PO daily SP No Start Date 04/17/2015 Inactive SP SP vitamin W73-qfwmy ac id oral SP RxNorm: oral No Start D ate SP 04/08/2017 Inactive SP Calcium RxNorm: SP 1800 PO daily No Start Date SP Inactive SP Kadi-D 12 Hour oral SP 391416 oral No Start Date SP 01/29/2015 Inactive [...] Item Code Result Date POS Comp Metabolic Dwg860 NA POS 140 mEq/L 06/25/2018 SP Comp Metabolic Pll566 K SP 3.5 mEq/L 06/25/2018 SP Comp Metabolic Duu534 CL SP 101 mEq/L 06/25/2018 SP Comp Metabolic Zxn781 CO2 SP 29.0 mEq/L 06/25/2018 SP Comp Metabolic Qhi121 AN ION GAP SP 14 06/25/2018 SP Comp Metabolic Bec358 GL UCOSE SP 107 mg/dL 06/25/2018 SP Comp Metabolic Yhj957 Cr eat SP 0.6 mg/dL 06/25/2018 SP Comp Metabolic Nws754 eG FR SP 103 ml/min/1.73m2 06/03 SP Comp Metabolic Enh817 BUN SP 10 mg/dL 06/25/2018 SP Comp Metabolic Sap788 B/ C Ratio SP 16.4 Ratio 06/25/2018 SP Comp Metabolic Vwa157 CA LCIUM SP 9.1 mg/dL 06/25/2018 SP Comp Metabolic Xhf026 AL K PHOS SP 65 U/L 06/25/2018 SP Comp Metabolic Uqj042 T(SGOT) SP 17 U/L 06/25/2018 SP Comp Metabolic Zhe910 AL T(SGPT) SP 13 U/L 06/25/2018 SP Comp Metabolic Ysh473 BI LI T SP 0.5 mg/dL 06/25/2018 SP Comp Metabolic Gsz881 AL BUMIN SP 3.8 g/dL 06/25/2018 SP Comp Metabolic Bim787 TP RO SP 6.6 g/dL 06/25/2018 SP Comp Metabolic Osb073 GL OB SP 2.8 g/dL 06/25/2018 SP Comp Metabolic Wgl717 A/ G Ratio SP 1.3 Ratio 06/25/2018 SP Comp Metabolic Pef373 Os mo SP 279 mOsmo 06/25/2018 SP [...] % 06/25/2018 SP Cbc With Differential Ord2 Stephens% SP 10.6 % 06/25/2018 SP Cbc With Differential Ord2 MCH SP 32.8 pg 06/25/2018 SP Cbc With Differential Ord2 MCHC SP 32.8 pg 06/25/2018 SP Cbc With Differential Ord2 Eos% SP 11.7 % 06/25/2018 SP Cbc With Differential Ord2 Baso% SP 0.7 % 06/25/2018 SP Cbc With Differential Ord2 PLT SP 333 K/ul 06/25/2018 SP Cbc With Differential Ord2 Neut ABS# SP 3.15 K/ul 06/25/2018 SP Cbc With Differential Ord2 RDW SP 13.8 % 06/25/2018 SP Cbc With Differential Ord2 Lymph ABS# SP 1.59 K/ul 06/25/2018 SP Cbc With Differential Ord2 Stephens ABS# SP 0.7 K/ul 06/25/2018 SP Cbc [...] % 04/09/2017 SP Cbc With Differential Ord2 Stephens% SP 7.9 % 04/09/2017 SP Cbc With Differential Ord2 MCH SP 32.6 pg 04/09/2017 SP Cbc With Differential Ord2 MCHC [...] K/ul 04/09/2017 SP Cbc With Differential Ord2 Stephens ABS# SP 0.7 K/ul 04/09/2017 SP Cbc With Differential Ord2 Eos ABS# SP 0.1 K/ul 04/09/2017 SP Cbc With Differential Ord2 Baso ABS# SP 0.0 K/ul 04/09/2017 SP Tsh Ord6 hTSH II SP 1.04 uIU/mL 04/09/2017 SP Comp Metabolic Fbs684 NA SP 140 mEq/L 04/09/2017 SP Comp Metabolic Rxf740 K SP 3.7 mEq/L 04/09/2017 SP Comp Metabolic Ugb378 CL SP 104 mEq/L 04/09/2017 SP Comp Metabolic Zot220 CO2 SP 28.0 mEq/L 04/09/2017 SP Comp Metabolic Uzm756 AN ION GAP SP 12 04/09/2017 SP Comp Metabolic Yht135 GL UCOSE SP 133 mg/dL 04/09/2017 SP Comp Metabolic Qpr494 Cr eat SP 0.6 mg/dL 04/09/2017 SP Comp Metabolic Bvw240 eG FR SP 114 ml/min/1.73m2 06/2017 SP Comp Metabolic Uqo809 BUN SP 13 mg/dL 04/09/2017 SP Comp Metabolic Ard998 B/ C Ratio SP 23.2 Ratio 04/09/2017 SP Comp Metabolic Pyx839 CA LCIUM SP 9.2 mg/dL 04/09/2017 SP Comp Metabolic Vxz462 AL K PHOS SP 53 U/L 04/09/2017 SP Comp Metabolic Jii680 T(SGOT) SP 21 U/L 04/09/2017 SP Comp Metabolic Wyc266 AL T(SGPT) SP 18 U/L 04/09/2017 SP Comp Metabolic Sso636 BI LI T SP 0.4 mg/dL 04/09/2017 SP Comp Metabolic Rtv684 AL BUMIN SP 4.0 g/dL 04/09/2017 SP Comp Metabolic Qdw340 TP RO SP 7.0 g/dL 04/09/2017 SP Comp Metabolic Opy080 GL OB SP 3.0 g/dL 04/09/2017 SP Comp Metabolic Yhx197 A/ G Ratio SP 1.4 Ratio 04/09/2017 SP Comp Metabolic Nyp363 Os mo SP 281 mOsmo 04/09/2017 SP [...] ADMIN PNEUMOCOCCAL V ACCINE SP SNOMED CT: 23458905 SPCPT-4: G0009 10/13/2017 SP Pneumococcal Polysac charide Vaccine, 23-Valent, Ad SP CPT-4: 99842 10/13/2017 SP ADMIN PNEUMOCOCCAL V ACCINE SP SNOMED CT: 48887128 SPCPT-4: G0009 12/10/2016 SP PNEUMOCOCCAL VACC 13 NORY IM SP SNOMED CT: 22746559 SPCPT-4: 04369 12/10/2016 SP TRIAMCINOLONE ACET I [place] NOS SP CPT-4: J3301 05/14/2016 SP DRAIN/INJECT JOINT/B URSA SP CPT-4: 58473 05/14/2016 SP PPPS, SUBSEQ VISIT CPT- SP [...] 1: SP Code: 8480-6 BMI: SP Code: 91594-9 Heart SP 1: 89 bpm Height: SP [...] 07/21/2016 recent pneumonia- SP in ER in [place] cough Location in the [facility] [...] Performer Loca tion POS Codes Date POS ([id number]) 85593 EST. P ATIENT, LEVEL III SPDiagnosis: Essential (primary) hypertension[ICD10: I10] Diagnosis: Fibromyalgia[ICD10: M79.7] Diagnosis: Primary generalized (osteo)arthritis[ICD10: M15.0] [facility] SP CPT-4: 76530 07/15/2018 [place] [phone]) 07989 EST. P ATIENT, LEVEL IV SPDiagnosis: Essential (primary) hypertension[ICD10: I10] Diagnosis: Fibromyalgia[ICD10: M79.7] Diagnosis: Primary generalized (osteo)arthritis[ICD10: M15.0] [facility] SP CPT-4: 07333 06/14/2018 [place] [phone]) 49320 EST. P ATIENT, LEVEL IV SPDiagnosis: Encounter for general adult medical examination with abnormal findings[ICD10: Z00.01] Diagnosis: Essential (primary) hypertension[ICD10: I10] Diagnosis: Nonscarring hair loss, unspecified[ICD10: L65.9] [facility] MD, [facility] CPT-4: 82486 04/09/2017 SP ([id number]) 39594 EST. P ATIENT, LEVEL III SPDiagnosis: Essential (primary) hypertension[ICD10: I10] Diagnosis: Acute recurrent maxillary sinusitis[ICD10: J01.01] Naheed Wang MD, [facility] CPT-4: 91596 11/27/2016 SP ([id number]) 73563 EST. P ATIENT, LEVEL IV SPDiagnosis: Dyspnea, unspecified[ICD10: R06.00] Diagnosis: Snoring[ICD10: R06.83] Diagnosis: Cough[ICD10: R05] Diagnosis: Personal history of nicotine dependence[ICD10: Z87.891] Diagnosis: Hypersomnia, unspecified[ICD10: G47.10] [facility]heed [facility] MD, [facility] CPT-4: 17607 07/21/2016 SP ([id number]) 88698 EST. P ATIENT, LEVEL III SPDiagnosis: Cough[ICD10: R05] Diagnosis: Other effects of high altitude, initial encounter[ICD10: T70.29XA] Naheed LEON MD, [facility] CPT-4: 34847 06/20/2016 SP ([id number]) 95953 EST. P ATIENT, LEVEL III SPDiagnosis: Pain in left wrist[ICD10: M25.532] Diagnosis: Pain in left finger(s)[ICD10: M79.645] Diagnosis: Primary osteoarthritis, left hand[ICD10: M19.042] [facility] MD, [facility] CPT-4: 23565 05/14/2016 [place] [address] EST. PATIENT, LEVEL III SPDiagnosis: Pain in left wrist[ICD10: M25.532] Diagnosis: Pain in left finger(s)[ICD10: M79.645] Clau Wang MD, [facility] SP4: 83249 04/23/2016 SP ([id number]) 67393 EST. P ATIENT, LEVEL II SPDiagnosis: INSECT BITE NEC-INFECTED[ICD9: 919.5] Nati Wang MD, [facility] SP4: 64330 05/14/2015 SP ([id number]) OFFICE VISI T, NEW - LEVEL 3 SPDiagnosis: Tobacco use[ICD9: 305.1] Diagnosis: Vaginal dryness, menopausal[ICD9: 627.2] Diagnosis: ALLERGIC RHINITIS[ICD9: 477.9] SP [facility] CPT-4: SP 01/30/2015 SP [...] today 07/15/2018 SP Appointment: Naheed Smith SPWPtel[id number] (15 min) Moderate SP 07/15/2018 SP Patient [...] plan. 06/14/2018 SP App[facility]ment: [facility]tel[facility] [phone] [phone] (30 min) Complex SP 06/14/2018 SP Patient Education: Patient Medication Summary SP Completed 06/14/2018 SP Care Plan: COMPLETE CBC AUTOMATED LOINC : SP Pending 06/14/2018 SP Care Plan: SCREENINGMAMMOGRAPHYDIGITAL SP : 90868-2 Pending 06/14/2018 SP Appointment: Injection SP 10/13/2017 [...] 04/09/2017 SP Appointment: [facility]WPtel[facility] [phone] [phone] (30 min) Complex SP 04/09/2017 SP Patient [...] 11/27/2016 SP Appointment: Luis [facility]heed SPWPtel: [phone] [facility] [place] (30 min) Complex SP 11/27/2016 SP [...] : SP Pending 07/21/2016 SP Visit Plan: Owucb-apvkbngnp-bzkwmt zpack Altitude sickness- SP also improving-less SOA, [...] surgery 05/14/2016 SP Appointment: [facility] SPWPtel[facility] [phone] [facility] [place] (15 min) Moderate SP [...] concerns. 04/23/2016 SP Appointment: Naheed Smith SPWPtel: [phone] [facility] [id number] [place] (30 min) Complex SP 04/23/2016 SP [...] colonoscopy with Dr. Mcneil. 04/18/2015 SP Appointment: [facility] - SP Wellness Visit 04/18/2015 SP Patient [...] for increased redness, swelling, warmth, discharge. . Zutlw-bqkoyjduz-zu nish zpack SP Altitude sickness-symptoms also improving-less SOA, less headache-instructed patient and to rest over the week-increase fluids and call Thursday if symptoms are not improved. Patient verbalized understanding of plan.
--- OUTSIDE RECORDS SUMMARY | 2019-10-18 13:00 | XMS REPORT | CCD ---
Author Author Naheed Smith POS Organization [facility] SP Address [address] [place] [address] Phone SP Care Team Providers Care Senior Peoplesoft Developer Name Role Phone POS PP Unavailable SP CCM Unavailable SP Summary Purpose Interface Exchange Insurance Providers Payer name Policy type / Coverage type POS constitution party ID Effective Begin Date Effective POS Date [facility] Medicare Part B POS Unknown Unknown [...] Effective Dates POS Tobacco history SNOMED CT: 7897056 Quit less SPthan 5 years ago 04/19/2015 SP Marital status Unknown M arried SP 01/30/2015 SP Number of children Unknown 2 SP 01/30/2015 SP Number of years using tobacco Unknown 20 SP 01/30/[address]: 872725 Currently SP alcohol 01/30/2015 SP Frequency of drinks SNOMED CT: 677007586 7 SP per week 01/30/2015 SP Has [...] Instruc tions POS Start Date Stop Date POS Fill Instructions POS Cymbalta 30 mg capsu le,delayed release SP RxNorm: 997930 1 Capsule(s) PO daily SP 06/14/2018 10/11/2018 Ac tive SP SP hydrochlorothiazide 25 mg tablet SP RxNorm: 368421 1 TABLET(S) PO DAILY SP 04/08/2018 06/13/2018 In active SP SP Vivelle-Dot 0.05 mg/ 24 hr transdermal patch SP RxNorm: 613577 1 PATCH TD BIW SP 11/19/2017 11/13/2018 Ac tive SP 1 patch twice weekly SP hydrochlorothiazide 25 mg tablet SP RxNorm: 715065 1 TABLET(S) PO DAILY SP 10/29/2017 03/27/2018 In active SP SP hydrochlorothiazide 25 mg tablet SP RxNorm: 408625 1 Tablet(s) PO daily SP 05/18/2017 10/28/2017 In active SP SP vitamin O17-xmlyo ac id 2.5 mg-0.8 mg oral sublingual tablet SP RxNorm: 780185 1000mcg SP PO daily 04/09/2017 No Stop Date SP Active SP Vivelle-Dot 0.05 mg/ 24 hr transdermal patch SP RxNorm: 818118 1 PATCH TD BIW SP 01/01/2017 11/18/2017 In active SP 1 patch twice weekly SP omeprazole 40 mg cap parul,delayed release SP RxNorm: 416857 1 Capsule(s) PO daily SP 11/27/2016 12/26/2016 In active SP SP Levaquin 500 mg tablet SP 465709 1 Tablet(s) PO daily 11/27/2016 SP 12/03/2016 Inactive SP hydrochlorothiazide 25 mg tablet SP RxNorm: 618601 1 Tablet(s) PO daily SP 11/27/2016 05/17/2017 In active SP SP Voltaren 1 % topical gel SP RxNorm: 314113 2 Gram(s) TOP QID SP 07/12/2016 Inactive SP prednisone 10 mg tablet SP 588138 Tablet(s) PO UD 04/23/2016 SP 04/08/2017 Inactive SP Vivelle-Dot 0.05 mg/ 24 hr transdermal patch SP RxNorm: 021229 1 PATCH TD BIW SP 01/28/2016 12/31/2016 In active SP 1 patch twice weekly SP Bactrim DS 800 mg-16 0 mg tablet SP RxNorm: 666994 1 Tablet(s) PO BID SP 05/20/2015 Inactive SP Culturelle 10 billio n cell capsule SP RxNorm: 446281 1 Capsule(s) PO daily SP 05/14/2015 06/12/2015 In active SP SP Vitamin D3 1,000 uni t tablet SP RxNorm: 446814 5 (5000) Tablet(s) PO daily SP 04/18/2015 04/08/2017 In active SP SP Premarin 0.625 mg/gr am vaginal cream SP RxNorm: 429276 1 Gram(s) VAG 2 times weekly SP 02/22/2015 02/21/2015 SP SP Chantix 1 mg tablet SP 023729 1 Tablet(s) PO BID 02/22/2015 SP 02/21/2015 Inactive SP Chantix 1 mg tablet SP 312191 1 Tablet(s) PO BID 02/22/2015 SP 04/22/2015 Inactive [SHAHIDA INGS SP NON-COVERED DRUGS -- BIN:544590, PCN: ASPROD1, Group: XXXXX, ID# [id number], Questions: . THIS IS NOT INSURANCE.] Premarin 0.625 mg/gr am vaginal cream SP RxNorm: 889081 1 Gram(s) VAG 2 times weekly SP 02/22/2015 09/19/2015 SP [SAVINGS FOR NON-COVERED DRUGS -- BIN:00 3585, PCN: ASPROD1, SPGroup: XXXXX, ID# XXXXXXX, Questions: . THIS IS NOT INSURANCE.] magnesium RxNorm: SP 900 PO daily 01/30/2015 SP Inactive [SAVINGS FOR NON-COVERED DR DUEÑAS SP BIN:464836, PCN: ASPROD1, Group: XXXXX, ID# [id number], Questions: . THIS IS NOT INSURANCE.] Vivelle-Dot 0.05 mg/ 24 hr transdermal patch SP RxNorm: 399832 2 TD QW SP 01/29/2015 Inactive SP Vivelle-Dot 0.05 mg/ 24 hr transdermal patch SP RxNorm: 136442 1 Patch TD BIW SP 01/30/2015 01/27/2016 In active SP 1 patch twice weekly SP Pataday 0.2 % eye drops SP 2631867 Drop(s) OPH daily No Start Date SP Active SP olive leaf extract oral SP oral No Start Date SP Active SP Flonase Allergy Reli ef 50 mcg/actuation nasal SP RxNorm: 1 to each nare SPSpray NASAL daily No Start Date SP Active SP Singulair 10 mg tablet SP 040132 1 Tablet(s) PO daily No Start Date SP Active SP coenzyme Q10 200 mg capsule SP RxNorm: 619621 2 Capsule(s) PO daily No SPStart Date Active SP Zyrtec 10 mg capsule SP 8277145 1 Capsule(s) PO daily No Start SP Active SP krill oil oral RxNorm: SP oral No Start Date SP [place] [address] oral No Start Date SP 04/08/2017 Inactive SP magnesium oral RxNorm: SP oral No Start Date SP Inactive SP Kadi oral RxNorm: SP oral No Start Date SP Inactive SP B Complex 1 tablet SP 1 Tablet(s) PO daily No Start Date SP 04/08/2017 Inactive SP Vitamin D3 1,000 uni t tablet SP RxNorm: 798110 5 (5000) Tablet(s) PO daily SP No Start Date 04/17/2015 Inactive SP SP vitamin R16-vltus ac id oral SP RxNorm: oral No Start D ate SP 04/08/2017 Inactive SP Calcium RxNorm: SP 1800 PO daily No Start Date SP Inactive SP Kadi-D 12 Hour oral SP 773255 oral No Start Date SP 01/29/2015 Inactive [...] (primary) hypertension ICD -10: I10 POSICD-9: 401.1 06/14/2018 SP Fibromyalgia ICD-10: M79.7 SPICD-9: 729.1 06/14/2018 SP Primary generalized (osteo)arthritis ICD-10: M15.0 SPICD-9: 715.09 06/14/2018 SP Encounter for immunization ICD-10: Z 23 [...] For Visit Effective Dates Notes POS hypertension 06/14/2018 pain POS vaccination against pneumonia 10/13/2017 SP hypertension 04/09/2017 [...] pg 04/09/2017 SP Cbc With Differential Ord2 [place]% SP 7.9 % 04/09/2017 SP Cbc With [...] K/ul 04/09/2017 SP Cbc With Differential Ord2 [place] ABS# SP 0.7 K/ul 04/09/2017 SP Cbc With Differential Ord2 Eos ABS# SP 0.1 K/ul 04/09/2017 SP Cbc With Differential Ord2 Baso ABS# SP 0.0 K/ul 04/09/2017 SP Tsh Ord6 hTSH II SP 1.04 uIU/mL 04/09/2017 SP Comp Metabolic Crl759 NA SP 140 mEq/L 04/09/2017 SP Comp Metabolic Bnl260 K SP 3.7 mEq/L 04/09/2017 SP Comp Metabolic All147 CL SP 104 mEq/L 04/09/2017 SP Comp Metabolic Nup333 CO2 SP 28.0 mEq/L 04/09/2017 SP Comp Metabolic Pyj850 AN ION GAP SP 12 04/09/2017 SP Comp Metabolic Wrv123 GL UCOSE SP 133 mg/dL 04/09/2017 SP Comp Metabolic Hsp138 Cr eat SP 0.6 mg/dL 04/09/2017 SP Comp Metabolic Toj537 eG FR SP 114 ml/min/1.73m2 06/2017 SP Comp Metabolic Ifm672 BUN SP 13 mg/dL 04/09/2017 SP Comp Metabolic Tsc699 B/ C Ratio SP 23.2 Ratio 04/09/2017 SP Comp Metabolic Syp388 CA LCIUM SP 9.2 mg/dL 04/09/2017 SP Comp Metabolic Yym883 AL K PHOS SP 53 U/L 04/09/2017 SP Comp Metabolic Ddw008 T(SGOT) SP 21 U/L 04/09/2017 SP Comp Metabolic Sar283 AL T(SGPT) SP 18 U/L 04/09/2017 SP Comp Metabolic Mxo458 BI LI T SP 0.4 mg/dL 04/09/2017 SP Comp Metabolic Oys174 AL BUMIN SP 4.0 g/dL 04/09/2017 SP Comp Metabolic Dxl883 TP RO SP 7.0 g/dL 04/09/2017 SP Comp Metabolic Tei714 GL OB SP 3.0 g/dL 04/09/2017 SP Comp Metabolic Tuz379 A/ G Ratio SP 1.4 Ratio 04/09/2017 SP Comp Metabolic Tat062 Os mo SP 281 mOsmo 04/09/2017 SP Review of Systems System Result Effective Dates POS Constitutional No recent illness 06/14/2018 POS Constitutional No anorexia 06/14/2018 SP Constitutional No [...] ADMIN PNEUMOCOCCAL V ACCINE SP SNOMED CT: 57406826 SPCPT-4: G0009 10/13/2017 SP Pneumococcal Polysac charide Vaccine, 23-Valent, Ad SP CPT-4: 69520 10/13/2017 SP ADMIN PNEUMOCOCCAL V ACCINE SP SNOMED CT: 55236823 SPCPT-4: G0009 12/10/2016 SP PNEUMOCOCCAL VACC 13 NORY IM SP SNOMED CT: 76448136 SPCPT-4: 13216 12/10/2016 SP TRIAMCINOLONE ACET I [place] NOS SP CPT-4: J3301 05/14/2016 SP DRAIN/INJECT JOINT/B URSA SP CPT-4: 96042 05/14/2016 SP PPPS, SUBSEQ VISIT CPT- SP G0439 04/18/2015 SP Vital Signs Date Vital POS 06/14/2018 Blood Pressure 1: 140/62 Code: SP6 [...] 1: SP Code: 8480-6 BMI: SP Code: 86542-9 Heart SP 1: 89 bpm Height: SP [...] Notes POS hypertension Quality chr onic SP 06/14/2018 None [...] 07/21/2016 recent pneumonia- SP in ER in [place] cough Location in the [place] [...] Performer Loca tion POS Codes Date POS ([id number]) 54021 EST. [facility] SPDiagnosis: Essential (primary) hypertension[ICD10: I10] Diagnosis: Fibromyalgia[ICD10: M79.7] Diagnosis: Primary generalized (osteo)arthritis[ICD10: M15.0] Naheed Wang MD, [facility] CPT-4: 64485 06/14/2018 SP ([id number]) 29707 EST. P ATIENT, LEVEL IV SPDiagnosis: Encounter for general adult medical examination with abnormal findings[ICD10: Z00.01] Diagnosis: Essential (primary) hypertension[ICD10: I10] Diagnosis: Nonscarring hair loss, unspecified[ICD10: L65.9] Naheed Wang MD, [facility] CPT-4: 15826 04/09/2017 SP (26130) 94461 EST. P ATIENT, LEVEL III SPDiagnosis: Essential (primary) hypertension[ICD10: I10] Diagnosis: Acute recurrent maxillary sinusitis[ICD10: J01.01] Naheed Wang MD, [facility] CPT-4: 21874 11/27/2016 SP (45187) 68779 EST. P ATIENT, LEVEL IV SPDiagnosis: Dyspnea, unspecified[ICD10: R06.00] Diagnosis: Snoring[ICD10: R06.83] Diagnosis: Cough[ICD10: R05] Diagnosis: Personal history of nicotine dependence[ICD10: Z87.891] Diagnosis: Hypersomnia, unspecified[ICD10: G47.10] Naheed Wang MD, [facility] CPT-4: 72236 07/21/2016 SP ([id number]) 26846 EST. P ATIENT, LEVEL III SPDiagnosis: Cough[ICD10: R05] Diagnosis: Other effects of high altitude, initial encounter[ICD10: T70.29XA] Naheed LEON MD, [facility] CPT-4: 19558 06/20/2016 SP ([id number]) 20387 EST. P ATIENT, LEVEL III SPDiagnosis: Pain in left wrist[ICD10: M25.532] Diagnosis: Pain in left finger(s)[ICD10: M79.645] Diagnosis: Primary osteoarthritis, left hand[ICD10: M19.042] Jasmin Wang MD, [facility] CPT-4: 95431 05/14/[place] [id number] EST. PATIENT, LEVEL III SPDiagnosis: Pain in left wrist[ICD10: M25.532] Diagnosis: Pain in left finger(s)[ICD10: M79.645] [facility] SP4: 34973 04/23/2016 SP ([id number]) 38676 EST. P ATIENT, LEVEL II SPDiagnosis: INSECT BITE NEC-INFECTED[ICD9: 919.5] [facility] SP4: 12871 05/14/2015 SP (01544) OFFICE VISI T, NEW - LEVEL 3 [...] 06/14/2018 SP Appointment: Naheed Smith SPWPtel: [phone] [facility] [id number] (30 min) Complex SP 06/14/2018 SP Patient Education: Patient Medication Summary SP Completed 06/14/2018 SP Care Plan: COMPLETE CBC AUTOMATED LOINC : SP Pending 06/14/2018 SP Care Plan: SCREENINGMAMMOGRAPHYDIGITAL SP : [id number] Pending 06/14/2018 SP Appointment: Injection SP 10/13/2017 [...] 04/09/2017 SP Appointment: Naheed Smith SPWPtel: [phone] [facility] [id number] (30 min) Complex SP 04/09/2017 SP Patient [...] 11/27/2016 SP [facility]: [phone] [facility] [place] (30 min) Complex SP 11/27/2016 [...] : SP Pending 07/21/2016 SP Visit Plan: Dhyef-sypklxvjh-zwmgeo zpack Altitude sickness- SP also improving-less SOA, [...] surgery 05/14/2016 SP Appointment: Jasmin Wang SPWPtel: [facility] [place] (15 min) Moderate SP 05/14/2016 SP [...] 04/23/2016 SP Appointment: Naheed Smith SPWPtel: [phone] [facility] [id number] (30 min) Complex SP 04/23/2016 SP Patient [...] colonoscopy with Dr. Mcneil. 04/18/2015 SP Appointment: [facility] - SP Wellness Visit 04/18/2015 SP [...] for increased redness, swelling, warmth, discharge. . Usvdg-plfdrpluw-ge lauren hector SP Altitude sickness-symptoms also improving-less SOA, less headache-instructed patient and to rest over the week-increase fluids and call Thursday if symptoms are not improved. Patient verbalized understanding of plan.
--- OUTSIDE RECORDS SUMMARY | 2019-10-18 13:01 | XMS REPORT | CCD ---
Author Author Naheed Smith POS Organization [facility] SP Address [address] [place] [address] Phone SP Care Team Providers Care Shop Supervisor Name Role Phone POS PP Unavailable SP CCM Unavailable SP Summary Purpose Interface Exchange Insurance Providers Payer name Policy type / Coverage type POS alliance party ID Effective Begin Date Effective POS Date [facility] Medicare Part B POS Unknown Unknown [...] Effective Dates POS Tobacco history SNOMED CT: 2474144 Quit less SPthan 5 years ago 04/19/2015 SP Marital status Unknown M arried SP 01/30/2015 SP Number of children Unknown 2 SP 01/30/2015 SP Number of years using tobacco Unknown 20 SP 01/30/2015 SP Alcohol history SNOMED CT: 183942 Currently SP alcohol 01/30/2015 SP Frequency of drinks SNOMED CT: 826443228 7 SP per week 01/30/2015 SP Has [...] 30 mg capsu le,delayed release SP RxNorm: 697813 1 Capsule(s) PO daily SP 06/14/2018 10/11/2018 Ac tive SP SP hydrochlorothiazide 25 mg tablet SP RxNorm: 068027 1 TABLET(S) PO DAILY SP 04/08/2018 06/13/2018 In active SP SP Vivelle-Dot 0.05 mg/ 24 hr transdermal patch SP RxNorm: 236536 1 PATCH TD BIW SP 11/19/2017 11/13/2018 Ac tive SP 1 patch twice weekly SP hydrochlorothiazide 25 mg tablet SP RxNorm: 924368 1 TABLET(S) PO DAILY SP 10/29/2017 03/27/2018 In active SP SP hydrochlorothiazide 25 mg tablet SP RxNorm: 679082 1 Tablet(s) PO daily SP 05/18/2017 10/28/2017 In active SP SP vitamin F99-uwcze ac id 2.5 mg-0.8 mg oral sublingual tablet SP RxNorm: 882453 1000mcg SP PO daily 04/09/2017 No Stop Date SP Active SP Vivelle-Dot 0.05 mg/ 24 hr transdermal patch SP RxNorm: 760032 1 PATCH TD BIW SP 01/01/2017 11/18/2017 In active SP 1 patch twice weekly SP omeprazole 40 mg cap parul,delayed release SP RxNorm: 786974 1 Capsule(s) PO daily SP 11/27/2016 12/26/2016 In active SP SP Levaquin 500 mg tablet SP 117899 1 Tablet(s) PO daily 11/27/2016 SP 12/03/2016 Inactive SP hydrochlorothiazide 25 mg tablet SP RxNorm: 149897 1 Tablet(s) PO daily SP 11/27/2016 05/17/2017 In active SP SP Voltaren 1 % topical gel SP RxNorm: 039444 2 Gram(s) TOP QID SP 07/12/2016 Inactive SP prednisone 10 mg tablet SP 621525 Tablet(s) PO UD 04/23/2016 SP 04/08/2017 Inactive SP Vivelle-Dot 0.05 mg/ 24 hr transdermal patch SP RxNorm: 441211 1 PATCH TD BIW SP 01/28/2016 12/31/2016 In active SP 1 patch twice weekly SP Bactrim DS 800 mg-16 0 mg tablet SP RxNorm: 182491 1 Tablet(s) PO BID SP 05/20/2015 Inactive SP Culturelle 10 billio n cell capsule SP RxNorm: 162469 1 Capsule(s) PO daily SP 05/14/2015 06/12/2015 In active SP SP Vitamin D3 1,000 uni t tablet SP RxNorm: 258226 5 (5000) Tablet(s) PO daily SP 04/18/2015 04/08/2017 In active SP SP Premarin 0.625 mg/gr am vaginal cream SP RxNorm: 970819 1 Gram(s) VAG 2 times weekly SP 02/22/2015 02/21/2015 SP SP Chantix 1 mg tablet SP 068605 1 Tablet(s) PO BID 02/22/2015 SP 02/21/2015 Inactive SP Chantix 1 mg tablet SP 182109 1 Tablet(s) PO BID 02/22/2015 SP 04/22/2015 Inactive [SHAHIDA INGS SP NON-COVERED DRUGS -- BIN:940948, PCN: ASPROD1, Group: XXXXX, ID# XXXXXXX, Questions: . THIS IS NOT INSURANCE.] Premarin 0.625 mg/gr am vaginal cream SP RxNorm: 134936 1 Gram(s) VAG 2 times weekly SP 02/22/2015 09/19/2015 SP [SAVINGS FOR NON-COVERED DRUGS -- BIN:00 3585, PCN: ASPROD1, SPGroup: XXXXX, ID# XXXXXXX, Questions: . THIS IS NOT INSURANCE.] magnesium RxNorm: SP 900 PO daily 01/30/2015 SP Inactive [SAVINGS FOR NON-COVERED DR DUEÑAS SP BIN:826859, PCN: ASPROD1, Group: XXXXX, ID# XXXXXXX, Questions: . THIS IS NOT INSURANCE.] Vivelle-Dot 0.05 mg/ 24 hr transdermal patch SP RxNorm: 289738 2 TD QW SP 01/29/2015 Inactive SP Vivelle-Dot 0.05 mg/ 24 hr transdermal patch SP RxNorm: 321854 1 Patch TD BIW SP 01/30/2015 01/27/2016 In active SP 1 patch twice weekly SP Pataday 0.2 % eye drops SP 5106008 Drop(s) OPH daily No Start Date SP Active SP olive leaf extract oral SP oral No Start Date SP Active SP Flonase Allergy Reli ef 50 mcg/actuation nasal SP RxNorm: 1 to each nare SPSpray NASAL daily No Start Date SP Active SP Singulair 10 mg tablet SP 466092 1 Tablet(s) PO daily No Start Date SP Active SP coenzyme Q10 200 mg capsule SP RxNorm: 406976 2 Capsule(s) PO daily No SPStart Date Active SP Zyrtec 10 mg capsule SP 3216313 1 Capsule(s) PO daily No Start SP Active SP krill oil oral RxNorm: SP oral No Start Date SP [place] [address] oral No Start Date SP 04/08/2017 Inactive SP magnesium oral RxNorm: SP oral No Start Date SP Inactive SP Kadi oral RxNorm: SP oral No Start Date SP Inactive SP B Complex 1 tablet SP 1 Tablet(s) PO daily No Start Date SP 04/08/2017 Inactive SP Vitamin D3 1,000 uni t tablet SP RxNorm: 111989 5 (5000) Tablet(s) PO daily SP No Start Date 04/17/2015 Inactive SP SP vitamin O69-lalaa ac id oral SP RxNorm: oral No Start D ate SP 04/08/2017 Inactive SP Calcium RxNorm: SP 1800 PO daily No Start Date SP Inactive SP Kadi-D 12 Hour oral SP 715390 oral No Start Date SP 01/29/2015 Inactive [...] pg 04/09/2017 SP Cbc With Differential Ord2 [place]% SP 7.9 % 04/09/2017 SP Cbc With [...] K/ul 04/09/2017 SP Cbc With Differential Ord2 [place] ABS# SP 0.7 K/ul 04/09/2017 SP Cbc With Differential Ord2 Eos ABS# SP 0.1 K/ul 04/09/2017 SP Cbc With Differential Ord2 Baso ABS# SP 0.0 K/ul 04/09/2017 SP Tsh Ord6 hTSH II SP 1.04 uIU/mL 04/09/2017 SP Comp Metabolic Yfz383 NA SP 140 mEq/L 04/09/2017 SP Comp Metabolic Lgx554 K SP 3.7 mEq/L 04/09/2017 SP Comp Metabolic Pja837 CL SP 104 mEq/L 04/09/2017 SP Comp Metabolic Stm686 CO2 SP 28.0 mEq/L 04/09/2017 SP Comp Metabolic Fip037 AN ION GAP SP 12 04/09/2017 SP Comp Metabolic Dho894 GL UCOSE SP 133 mg/dL 04/09/2017 SP Comp Metabolic Sfs269 Cr eat SP 0.6 mg/dL 04/09/2017 SP Comp Metabolic Oci602 eG FR SP 114 ml/min/1.73m2 06/2017 SP Comp Metabolic Wcg838 BUN SP 13 mg/dL 04/09/2017 SP Comp Metabolic Dmz294 B/ C Ratio SP 23.2 Ratio 04/09/2017 SP Comp Metabolic Ngg274 CA LCIUM SP 9.2 mg/dL 04/09/2017 SP Comp Metabolic Pwv138 AL K PHOS SP 53 U/L 04/09/2017 SP Comp Metabolic Cyi049 T(SGOT) SP 21 U/L 04/09/2017 SP Comp Metabolic Nzc450 AL T(SGPT) SP 18 U/L 04/09/2017 SP Comp Metabolic Pwb357 BI LI T SP 0.4 mg/dL 04/09/2017 SP Comp Metabolic Tke865 AL BUMIN SP 4.0 g/dL 04/09/2017 SP Comp Metabolic Lbx955 TP RO SP 7.0 g/dL 04/09/2017 SP Comp Metabolic Qoz653 GL OB SP 3.0 g/dL 04/09/2017 SP Comp Metabolic Bil530 A/ G Ratio SP 1.4 Ratio 04/09/2017 SP Comp Metabolic Nuy617 Os mo SP 281 mOsmo 04/09/2017 SP [...] ADMIN PNEUMOCOCCAL V ACCINE SP SNOMED CT: 05058543 SPCPT-4: G0009 10/13/2017 SP Pneumococcal Polysac charide Vaccine, 23-Valent, Ad SP CPT-4: 90538 10/13/2017 SP ADMIN PNEUMOCOCCAL V ACCINE SP SNOMED CT: 10931331 SPCPT-4: G0009 12/10/2016 SP PNEUMOCOCCAL VACC 13 NORY IM SP SNOMED CT: 87845467 SPCPT-4: 18647 12/10/2016 SP TRIAMCINOLONE ACET I [place] NOS SP CPT-4: J3301 05/14/2016 SP DRAIN/INJECT JOINT/B URSA SP CPT-4: 33669 05/14/2016 SP PPPS, SUBSEQ VISIT CPT- SP [...] 1: SP Code: 8480-6 BMI: SP Code: 92314-4 Heart SP 1: 89 bpm Height: SP [...] Performer Loca tion POS Codes Date POS ([id number]) 56748 EST. P [facility] SPDiagnosis: Essential (primary) hypertension[ICD10: I10] Diagnosis: Fibromyalgia[ICD10: M79.7] Diagnosis: Primary generalized (osteo)arthritis[ICD10: M15.0] Naheed Wang MD, [facility] CPT-4: 15576 06/14/2018 SP ([id number]) 50997 EST. P ATIENT, LEVEL IV SPDiagnosis: Encounter for general adult medical examination with abnormal findings[ICD10: Z00.01] Diagnosis: Essential (primary) hypertension[ICD10: I10] Diagnosis: Nonscarring hair loss, unspecified[ICD10: L65.9] Naheed Wang MD, [facility] CPT-4: 57684 04/09/2017 SP (11003) 14699 EST. P ATIENT, LEVEL III SPDiagnosis: Essential (primary) hypertension[ICD10: I10] Diagnosis: Acute recurrent maxillary sinusitis[ICD10: J01.01] Naheed Wang MD, [facility] CPT-4: 28490 11/27/2016 SP (75241) 34267 EST. P ATIENT, LEVEL IV SPDiagnosis: Dyspnea, unspecified[ICD10: R06.00] Diagnosis: Snoring[ICD10: R06.83] Diagnosis: Cough[ICD10: R05] Diagnosis: Personal history of nicotine dependence[ICD10: Z87.891] Diagnosis: Hypersomnia, unspecified[ICD10: G47.10] Naheed Wang MD, [facility] CPT-4: 85576 07/21/2016 SP ([id number]) 39639 EST. P ATIENT, LEVEL III SPDiagnosis: Cough[ICD10: R05] Diagnosis: Other effects of high altitude, initial encounter[ICD10: T70.29XA] Naheed LEON MD, [facility] CPT-4: 38148 06/20/2016 SP ([id number]) 14108 EST. P ATIENT, LEVEL III SPDiagnosis: Pain in left wrist[ICD10: M25.532] Diagnosis: Pain in left finger(s)[ICD10: M79.645] Diagnosis: Primary osteoarthritis, left hand[ICD10: M19.042] Jasmin Wang MD, [facility] CPT-4: 82888 05/14/[place] [address] EST. PATIENT, LEVEL III SPDiagnosis: Pain in left wrist[ICD10: M25.532] Diagnosis: Pain in left finger(s)[ICD10: M79.645] [facility] SP4: 24315 04/23/2016 SP (29841) 30080 EST. P ATIENT, LEVEL II SPDiagnosis: INSECT BITE NEC-INFECTED[ICD9: 919.5] [facility] SP4: 51680 05/14/2015 SP ([id number]) OFFICE VISI T, NEW - LEVEL 3 SPDiagnosis: Tobacco use[ICD9: 305.1] Diagnosis: Vaginal dryness, menopausal[ICD9: 627.2] Diagnosis: ALLERGIC RHINITIS[ICD9: 477.9] SP Luis [facility] CPT-4: SP 01/30/2015 SP Plan of Care Planned Activity Notes C odes POS Status Date POS Appointment: Naheed Smith SPWPtel: [address] [place], [place] [phone] (30 min) Complex SP 06/14/2018 SP Patient Education: Patient Medication Summary SP Completed 06/14/2018 SP Care Plan: COMPLETE CBC AUTOMATED LOINC : SP Pending 06/14/2018 SP Care Plan: SCREENINGMAMMOGRAPHYDIGITAL SP : [id number] Pending 06/14/2018 SP Appointment: Injection SP 10/13/2017 SP Patient Education: Patient Medication Summary SP Completed 10/13/2017 SP Appointment: Naheed Smith SPWPtel: [address] [place], [place] [phone] (30 min) Complex SP 04/09/2017 SP Patient Education: Patient Medication Summary SP Completed 04/09/2017 SP Patient Education: Obesity SP Completed 04/09/2017 SP Appointment: Injection SP 12/10/2016 SP Patient Education: Patient Medication Summary SP Completed 12/10/2016 SP Appointment: Naheed Smith SPWPtel: [phone] (30 min) Complex SP 11/27/2016 SP Patient Education: Patient Medication Summary SP Completed 11/27/2016 SP Patient Education: Obesity SP Completed 11/27/2016 SP Referral: Jon Conrad Referral SP Completed 07/21/2016 SP Patient Education: Patient Medication Summary SP Completed 07/21/2016 SP Care Plan: Referral Order SNOMED-CT : SP Pending 07/21/2016 SP Patient Education: Patient Medication Summary SP Completed 06/20/2016 SP Care Plan: X-RAY EXAM OF WRIST LOINC : SP Pending 05/23/2016 SP Care Plan: X-RAY EXAM OF FINGER(S) LOINC : SP Pending 05/23/2016 SP Appointment: Jasmin Wang SPWPtel: [phone] [facility] [id number] [place] (15 min) Moderate SP 05/14/2016 SP Patient Education: Patient Medication Summary SP Completed 05/14/2016 SP Patient Education: Obesity SP Completed 05/14/2016 SP Appointment: Naheed Smith SPWPtel: [phone] [facility] [id number] [place] (30 min) Complex SP 04/23/2016 SP Patient Education: Patient Medication Summary SP Completed 04/23/2016 SP Appointment: (30 min) SP 05/14/2015 SP Patient Education: Patient Medication Summary SP Completed 05/14/2015 SP Appointment: [facility] - SP Wellness Visit 04/18/2015 SP Patient Education: Patient Medication Summary SP Completed 04/18/2015 SP Care Plan: COMPLETE CBC AUTOMATED LOINC : SP Ordered 04/18/2015 SP Appointment: New SP 01/30/2015 SP Patient Education: Patient Medication Summary SP Completed 01/30/2015 SP Patient Education: Smoking and Tobacco Addiction SP Completed 01/30/2015 SP Referral: Jon Conrad Referral SP Appointment Requested SP Instructions No Instructions
--- OUTSIDE RECORDS SUMMARY | 2019-10-18 13:03 | XMS REPORT | CCD ---
Author Author Naheed Smith POS Organization [facility] SP Address [address] [place] [address] Phone SP Care Team Providers Care Form Carpenter Name Role Phone POS PP Unavailable SP CCM Unavailable SP Summary Purpose Interface Exchange Insurance Providers Payer name Policy type / Coverage type POS constitution party ID Effective Begin Date Effective POS Date [facility] Medicare Part B POS Unknown Unknown [...] Effective Dates POS Tobacco history SNOMED CT: 1012234 Quit less SPthan 5 years ago 04/19/2015 SP Marital status Unknown M arried SP 01/30/2015 SP Number of children Unknown 2 SP 01/30/2015 SP Number of years using tobacco Unknown 20 SP 01/30/[address]: 549769 Currently SP alcohol 01/30/2015 SP Frequency of drinks SNOMED CT: 015471631 7 SP per week 01/30/2015 SP Has the patient ever used illegal drugs? Unknown SP Has never used illegal drugs 015 SP Allergies, Adverse Reactions, Alerts Allergies, Adverse Reactions, Alerts data not found Past Medical History Illness Codes Condition Status POS Onset Date Resolved Date POS Encounter for immuni zation SP ICD-9: V03.82 [...] Dates POS Condition Status POS Encounter for immuni zation SP ICD-9: V03.82 [...] mg/ 24 hr transdermal patch SP RxNorm: 968308 1 PATCH TD BIW SP 11/19/2017 11/13/2018 Ac tive SP 1 patch twice weekly SP hydrochlorothiazide 25 mg tablet SP RxNorm: 594565 1 TABLET(S) PO DAILY SP 10/29/2017 03/27/2018 Ac tive SP SP hydrochlorothiazide 25 mg tablet SP RxNorm: 673529 1 Tablet(s) PO daily SP 05/18/2017 10/28/2017 In active SP SP vitamin [id number] ac id 2.5 mg-0.8 mg oral sublingual tablet SP RxNorm: 314749 1000mcg SP PO daily 04/09/2017 No Stop Date SP Active SP Vivelle-Dot 0.05 mg/ 24 hr transdermal patch SP RxNorm: 960818 1 PATCH TD BIW SP 01/01/2017 11/18/2017 In active SP 1 patch twice weekly SP omeprazole 40 mg cap parul,delayed release SP RxNorm: 110043 1 Capsule(s) PO daily SP 11/27/2016 12/26/2016 In active SP SP Levaquin 500 mg tablet SP 711685 1 Tablet(s) PO daily 11/27/2016 SP 12/03/2016 Inactive SP hydrochlorothiazide 25 mg tablet SP RxNorm: 176828 1 Tablet(s) PO daily SP 11/27/2016 05/17/2017 In active SP SP Voltaren 1 % topical gel SP RxNorm: 649722 2 Gram(s) TOP QID SP 07/12/2016 Inactive SP prednisone 10 mg tablet SP 766902 Tablet(s) PO UD 04/23/2016 SP 04/08/2017 Inactive SP Vivelle-Dot 0.05 mg/ 24 hr transdermal patch SP RxNorm: 809278 1 PATCH TD BIW SP 01/28/2016 12/31/2016 In active SP 1 patch twice weekly SP Bactrim DS 800 mg-16 0 mg tablet SP RxNorm: 629209 1 Tablet(s) PO BID SP 05/20/2015 Inactive SP Culturelle 10 billio n cell capsule SP RxNorm: 673135 1 Capsule(s) PO daily SP 05/14/2015 06/12/2015 In active SP SP Vitamin D3 1,000 uni t tablet SP RxNorm: 955360 5 (5000) Tablet(s) PO daily SP 04/18/2015 04/08/2017 In active SP SP Premarin 0.625 mg/gr am vaginal cream SP RxNorm: 002960 1 Gram(s) VAG 2 times weekly SP 02/22/2015 02/21/2015 SP SP Chantix 1 mg tablet SP 081155 1 Tablet(s) PO BID 02/22/2015 SP 02/21/2015 Inactive SP Chantix 1 mg tablet SP 000183 1 Tablet(s) PO BID 02/22/2015 SP 04/22/2015 Inactive [[facility] INGS SP NON-COVERED DRUGS -- BIN:[id number], PCN: [id number], Group: XXXXX, ID# [id number], Questions: . THIS IS NOT INSURANCE.] Premarin 0.625 mg/gr am vaginal cream SP RxNorm: 310806 1 Gram(s) VAG 2 times weekly SP 02/22/2015 09/19/2015 SP [SAVINGS FOR NON-COVERED DRUGS -- BIN:00 3585, PCN: [id number], SPGroup: XXXXX, ID# [id number], Questions: . THIS IS NOT INSURANCE.] magnesium RxNorm: SP 900 PO daily 01/30/2015 SP Inactive [SAVINGS FOR NON-COVERED DR UGS SP BIN:[id number], PCN: ASPROD1, Group: XXXXX, ID# [id number], Questions: . THIS IS NOT INSURANCE.] Vivelle-Dot 0.05 mg/ 24 hr transdermal patch SP RxNorm: 821982 2 TD QW SP 01/29/2015 Inactive SP Vivelle-Dot 0.05 mg/ 24 hr transdermal patch SP RxNorm: 234633 1 Patch TD BIW SP 01/30/2015 01/27/2016 In active SP 1 patch twice weekly SP Pataday 0.2 % eye drops SP 0550957 Drop(s) OPH daily No Start Date SP Active SP olive leaf extract oral SP oral No Start Date SP Active SP Flonase Allergy Reli ef 50 mcg/actuation nasal SP RxNorm: 1 to each nare SPSpray NASAL daily No Start Date SP Active SP Singulair 10 mg tablet SP 190072 1 Tablet(s) PO daily No Start Date SP Active SP coenzyme Q10 200 mg capsule SP RxNorm: 148758 2 Capsule(s) PO daily No SPStart Date Active SP Zyrtec 10 mg capsule SP 6364192 1 Capsule(s) PO daily No Start SP Active SP krill oil oral RxNorm: SP oral No Start Date SP [place] [address] oral No Start Date SP 04/08/2017 Inactive SP magnesium oral RxNorm: SP oral No Start Date SP Inactive SP Kadi oral RxNorm: SP oral No Start Date SP Inactive SP B Complex 1 tablet SP 1 Tablet(s) PO daily No Start Date SP 04/08/2017 Inactive SP Vitamin D3 1,000 uni t tablet SP RxNorm: 339660 5 (5000) Tablet(s) PO daily SP No Start Date 04/17/2015 Inactive SP SP vitamin P16-vchvs ac id oral SP RxNorm: oral No Start D ate SP 04/08/2017 Inactive SP Calcium RxNorm: SP 1800 PO daily No Start Date SP Inactive SP Kadi-D 12 Hour oral SP 112278 oral No Start Date SP 01/29/2015 Inactive SP Medication Administered No Medication Administered data Immunizations Vaccine Codes Date Status POS Pneumococcal (Adult) CVX: 33 10/13/2017 POS completed SP Influenza CVX: 141 12/11 SP completed SP Pneumococcal (Adult) CVX: 133 12/10/2016 SP completed SP Influenza CVX: 141 05/02 SP completed SP Diphtheria, Tetanus, Pertussis CVX: 20 SP completed SP Pneumococcal CVX: 33 11/2008 SP completed SP Assessments Condition Codes Effectiv e Dates POS Encounter for immunization ICD-10: Z 23 POSICD-9: V03.82 10/13/2017 SP Essential (primary) hypertension ICD -10: I10 SPICD-9: 401.1 04/09/2017 SP Encounter for general adult [...] Reason For Visit Effective Dates Notes POS vaccination against pneumonia 10/13/2017 POS hypertension 04/09/2017 SP vaccination against pneumonia 12/10/2016 [...] % 04/09/2017 SP Cbc With Differential Ord2 Lane% SP 7.9 % 04/09/2017 SP Cbc With Differential Ord2 MCH SP 32.6 pg 04/09/2017 SP Cbc With Differential Ord2 Eos% SP 1.7 % 04/09/2017 SP Cbc With Differential Ord2 MCHC SP 32.3 pg 04/09/2017 SP Cbc With Differential Ord2 Baso% SP 0.2 % 04/09/2017 SP Cbc With Differential Ord2 PLT SP 280 K/ul 04/09/2017 SP Cbc With Differential Ord2 Neut ABS# SP 5.06 K/ul 04/09/2017 SP Cbc With Differential Ord2 RDW SP 14.2 % 04/09/2017 SP Cbc With Differential Ord2 Lymph ABS# SP 2.32 K/ul 04/09/[address] Cbc With Differential Ord2 Lane ABS# SP 0.7 K/ul 04/09/2017 SP Cbc With Differential Ord2 Eos ABS# SP 0.1 K/ul 04/09/2017 SP Cbc With Differential Ord2 Baso ABS# SP 0.0 K/ul 04/09/2017 SP Tsh Ord6 hTSH II SP 1.04 uIU/mL 04/09/2017 SP Comp Metabolic Xtb228 NA SP 140 mEq/L 04/09/2017 SP Comp Metabolic Siy239 K SP 3.7 mEq/L 04/09/2017 SP Comp Metabolic Zal693 CL SP 104 mEq/L 04/09/2017 SP Comp Metabolic Arc990 CO2 SP 28.0 mEq/L 04/09/2017 SP Comp Metabolic Sbu190 AN ION GAP SP 12 04/09/2017 SP Comp Metabolic Mxq109 GL UCOSE SP 133 mg/dL 04/09/2017 SP Comp Metabolic Gjh176 Cr eat SP 0.6 mg/dL 04/09/2017 SP Comp Metabolic Ykr855 eG FR SP 114 ml/min/1.73m2 06/2017 SP Comp Metabolic Jja924 BUN SP 13 mg/dL 04/09/2017 SP Comp Metabolic Dmx382 B/ C Ratio SP 23.2 Ratio 04/09/2017 SP Comp Metabolic Xjf677 CA LCIUM SP 9.2 mg/dL 04/09/2017 SP Comp Metabolic Giu880 AL K PHOS SP 53 U/L 04/09/2017 SP Comp Metabolic Fkz897 T(SGOT) SP 21 U/L 04/09/2017 SP Comp Metabolic Kdv011 AL T(SGPT) SP 18 U/L 04/09/2017 SP Comp Metabolic Csl757 BI LI T SP 0.4 mg/dL 04/09/2017 SP Comp Metabolic Pqz195 AL BUMIN SP 4.0 g/dL 04/09/2017 SP Comp Metabolic Vqt264 TP RO SP 7.0 g/dL 04/09/2017 SP Comp Metabolic Bdn779 GL OB SP 3.0 g/dL 04/09/2017 SP Comp Metabolic Bij901 A/ G Ratio SP 1.4 Ratio 04/09/2017 SP Comp Metabolic Ivf356 Os mo SP 281 mOsmo 04/09/2017 SP [...] ADMIN PNEUMOCOCCAL V ACCINE SP SNOMED CT: 26053239 SPCPT-4: G0009 10/13/2017 SP Pneumococcal Polysac charide Vaccine, 23-Valent, Ad SP CPT-4: 80603 10/13/2017 SP ADMIN PNEUMOCOCCAL V ACCINE SP SNOMED CT: 12649241 SPCPT-4: G0009 12/10/2016 SP PNEUMOCOCCAL VACC 13 NORY IM SP SNOMED CT: 39044912 SPCPT-4: 26367 12/10/2016 SP TRIAMCINOLONE ACET I [place] NOS SP CPT-4: J3301 05/14/2016 SP DRAIN/INJECT JOINT/B URSA SP CPT-4: 26555 05/14/2016 SP PPPS, SUBSEQ VISIT CPT- SP G0439 04/18/2015 SP Vital Signs Date Vital POS 10/13/2017 Heigh t: 5'4" SP 04/09/2017 Blood [...] 1: SP Code: 8480-6 BMI: SP Code: 78402-6 Heart SP 1: 89 bpm Height: SP [...] 07/21/2016 recent pneumonia- SP in ER in [place] cough Location in the [place] [facility] SP [...] Performer Loca tion POS Codes Date POS ([id number]) 26486 EST. P ATIENT, LEVEL IV SPDiagnosis: Encounter for general adult medical examination with abnormal findings[ICD10: Z00.01] Diagnosis: Essential (primary) hypertension[ICD10: I10] Diagnosis: Nonscarring hair loss, unspecified[ICD10: L65.9] Naheed [facility] MD, [facility] CPT-4: 10921 04/09/2017 SP ([id number]) 48994 EST. P ATIENT, LEVEL III SPDiagnosis: Essential (primary) hypertension[ICD10: I10] Diagnosis: Acute recurrent maxillary sinusitis[ICD10: J01.01] Naheed Wang MD, [facility] CPT-4: 98585 11/27/2016 SP ([id number]) 23083 EST. P ATIENT, LEVEL IV SPDiagnosis: Dyspnea, unspecified[ICD10: R06.00] Diagnosis: Snoring[ICD10: R06.83] Diagnosis: Cough[ICD10: R05] Diagnosis: Personal history of nicotine dependence[ICD10: Z87.891] Diagnosis: Hypersomnia, unspecified[ICD10: G47.10] Naheed Wang MD, [facility] CPT-4: 56570 07/21/2016 SP ([id number]) 17097 EST. P ATIENT, LEVEL III SPDiagnosis: Cough[ICD10: R05] Diagnosis: Other effects of high altitude, initial encounter[ICD10: T70.29XA] Naheed LEON MD, [facility] CPT-4: 32816 06/20/2016 SP ([id number]) 42927 EST. P ATIENT, LEVEL III SPDiagnosis: Pain in left wrist[ICD10: M25.532] Diagnosis: Pain in left finger(s)[ICD10: M79.645] Diagnosis: Primary osteoarthritis, left hand[ICD10: M19.042] [facility] Wang MD, [facility] CPT-4: 21127 05/14/2016 [place] [address] EST. PATIENT, LEVEL III SPDiagnosis: Pain in left wrist[ICD10: M25.532] Diagnosis: Pain in left finger(s)[ICD10: M79.645] Clau Wang MD, [facility] SP4: 11177 04/23/2016 SP ([id number]) 79981 EST. P ATIENT, LEVEL II SPDiagnosis: INSECT BITE NEC-INFECTED[ICD9: 919.5] [facility] SP4: 01817 05/14/2015 SP ([id number]) OFFICE VISI T, NEW - LEVEL 3 SPDiagnosis: Tobacco use[ICD9: 305.1] Diagnosis: Vaginal dryness, menopausal[ICD9: 627.2] Diagnosis: ALLERGIC RHINITIS[ICD9: 477.9] [facility] CPT-4: SP 01/30/2015 SP Plan of Care Planned Activity Notes C odes POS Status Date POS Appointment: Injection SP 10/13/2017 SP Patient Education: [...] TSH 04/09/2017 SP Appointment: Naheed Smith SPWPtel: [address] [place], [place] [phone] (30 min) Complex SP 04/09/2017 SP Patient [...] improvement. 11/27/2016 SP App[facility]ment[phone] ([facility] min) Complex SP 11/27/2016 SP [...] : SP Pending 07/21/2016 SP Visit Plan: Sjjnp-pchxmgozk-shbnwa zpack Altitude sickness- SP also improving-less SOA, [...] surgery 05/14/2016 SP Appointment: [facility] [place] (15 min) Moderate SP 05/14/2016 [...] 04/23/2016 SP [facility]: [facility] [phone] [phone] (30 min) Complex SP 04/23/2016 SP Patient [...] colonoscopy with Dr. Mcneil. 04/18/2015 SP Appointment: [facility] - SP Wellness Visit 04/18/2015 [...] further eval/injections/possible surgery . Left wrist and andérs mb pain - pt requests x-rays, states [...] for increased redness, swelling, warmth, discharge. . Nqiic-cuiawrlkw-py lauren zpack SP Altitude sickness-symptoms also improving-less SOA, less headache-instructed patient and to rest over the week-increase fluids and call Thursday if symptoms are not improved. Patient verbalized understanding of plan.
--- OUTSIDE RECORDS SUMMARY | 2019-10-18 13:04 | XMS REPORT | Continuity of Care Document ---
Author Organization Unknown POS Address Unknown SP Phone Unavailable SP Allergies Active Description Code Type Severity POS Reaction Onset Reported/Identified POS to Patient Clinical Status POS Yes No Known Allergies [id number] Drug Allergy SP Unknown N/A 08/27/2016 SP SP Yes lisinopril [id number] Drug Allerg y SP cough 09/25/2019 SP Medications There is no data. Problems Date Dx Coded Attending Type Code POS Diagnosed By POS 10/01/1325 ABILIO LUNDBERG, SANDRINE Luciano Ot Z47.1 SP FOLLOWING JOINT REPLACEMENT ZUNIGA SP 10/01/1325 ABILIO LUNDBERG, SANDRINE Luciano Ot Z96.6 92 SPJOINT REPLACEMENT OF LEFT HAND SP 10/01/1353 SANDRINE KNOX MD Ot Z47.1 SP FOLLOWING JOINT REPLACEMENT ZUNIGA SP 10/01/1353 ABILIO LUNDBERG, SANDRINE Luciano Ot Z96.6 92 SPJOINT REPLACEMENT OF LEFT HAND SP 05/09/2015 TEJAS ROJAS INTELLECTUAL PROPERTY MANAGER Ot V70.0 SP SP 05/18/2015 TEJAS ROJAS INTELLECTUAL PROPERTY MANAGER Ot V70.0 SP SP 05/25/2015 TEJAS ROJAS APRN Ot V76.12 SP SP 06/19/2015 TEJAS ROJAS INTELLECTUAL PROPERTY MANAGER Ot V70.0 SP SP 06/19/2015 TEJAS ROJAS INTELLECTUAL PROPERTY MANAGER Ot V76.12 SP [facility] SP 06/20/2015 TEJAS ROJAS INTELLECTUAL PROPERTY MANAGER Ot V70.0 SP SP 06/20/2015 TEJAS ROJAS INTELLECTUAL PROPERTY MANAGER Ot V76.12 SP SP [facility] SP 06/27/2015 [place] DUC RODRIGUEZ Ot 211. 3 SP SP 06/27/2015 [place] DUC RODRIGUEZ Ot 562. 10 SP SP 06/27/2015 [place] DUC RODRIGUEZ Ot V76. 51 SP SP 07/18[facility]. 3 SP SP 07/18/2015 [facility] D Ot 562. 10 SP SP 07/18/[facility] Ot V76. 51 SP SP 04/23/2016 TEJAS ROJAS APRN Ot V70.0 SP ROUTINE MEDICAL EXAM SP 04/23/2016 TEJAS ROJAS APRN Ot V76.12 SP OTH SCREEN MAMMO-MALIGN NEOPLASM OF [place] SP 04/23/2016 [facility] SP NEOPLASM LG BOWEL SP 04/23/2016 [facility], DUC D Ot 562. 10 SP COLON (W/O MENT OF HEMORR SP 04/23/2016 [facility] Ot V76. 51 SP MAL NEOP-COLON SP 04/23/2016 [facility], DUC D Ot V72. 84 SP PRE-OPERATIVE NOS SP 04/24/2016 FAUZIA ACOSTA APRN Ot M19.042 SP PRIMARY OSTEOARTHRITIS, LEFT HAND SP 06/12/2016 TINO LUNDBERG, MARBIN Taylor Ot Z12.31 SP ENCNTR SCREEN MAMMOGRAM FOR MALIGNANT NE SP 07/25/2016 TEJAS ROJAS APRN Ot V70.0 SP ROUTINE MEDICAL EXAM SP 07/25/2016 TEJAS ROJAS APRN Ot V76.12 SP OTH SCREEN MAMMO-MALIGN NEOPLASM OF [place] SP 07/25/2016 [facility] SP NEOPLASM LG BOWEL SP 07/25/[facility]. 10 SP COLON (W/O MENT OF HEMORR SP 07/25/2016 [facility] Ot V76. 51 SP MAL NEOP-COLON SP 07/25/2016 [facility] Ot V72. 84 SP PRE-OPERATIVE NOS SP 07/25/2016 FAUZIA ACOSTA APRN Ot M19.042 SP PRIMARY OSTEOARTHRITIS, LEFT HAND SP 07/25/2016 MARBIN JIMÉNEZ MD Ot Z12.31 SP ENCNTR SCREEN MAMMOGRAM FOR MALIGNANT NE SP 07/28/2016 TAI CLARK MANAGER OF HOUSEKEEPING Ot R05 SP COUGH SP 07/28/2016 TAI CLARK MANAGER OF HOUSEKEEPING Ot R06.00 SP DYSPNEA, UNSPECIFIED SP 08/15/2016 LIDIA CELESTE DO Ot J30. 9 SP RHINITIS, UNSPECIFIED SP 08/15/2016 LIDIA CELESTE DO Ot K80. 20 SP OF GALLBLADDER W/O CHOLECYSTITI SP 08/15/2016 LIDIA CELESTE DO Ot R06. 00 SP UNSPECIFIED SP 08/15/2016 LIDIA CELESTE DO Ot R59. 0 SP ENLARGED LYMPH NODES SP 08/15/2016 LIDIA CELESTE DO Ot J30. 9 SP RHINITIS, UNSPECIFIED SP 08/15/2016 LIDIA CELESTE DO Ot K80. 20 SP OF GALLBLADDER W/O CHOLECYSTITI SP 08/15/2016 LIDIA CELESTE DO Ot R06. 00 SP UNSPECIFIED SP 08/15/2016 LIDIA CELESTE DO Ot R59. 0 SP ENLARGED LYMPH NODES SP 08/21/2016 JUSTO PEÑA APRN Ot R06.00 SP DYSPNEA, UNSPECIFIED SP 08/21/2016 JUSTO PEÑA APRN Ot R09.02 SP HYPOXEMIA SP 08/21/2016 JUSTO PEÑA INTELLECTUAL PROPERTY MANAGER Ot R06.00 SP DYSPNEA, UNSPECIFIED SP 08/21/2016 JUSTO PEÑA INTELLECTUAL PROPERTY MANAGER Ot R09.02 SP HYPOXEMIA SP 08/25/2016 LIDIA CELESTE DO Ot J30. 9 SP RHINITIS, UNSPECIFIED SP 08/25/2016 LIDIA CELESTE DO Ot R06. 00 SP UNSPECIFIED SP 08/25/2016 LIDIA CELESTE DO Ot Z01.818 SP ENCOUNTER FOR OTHER PREPROCEDURAL EXAMIN SP 08/26/2016 LIDIA CELESTE DO Ot J30. 9 SP RHINITIS, UNSPECIFIED SP 08/26/2016 LIDIA CELESTE DO Ot R06. 00 SP UNSPECIFIED SP 08/26/2016 LIDIA CELESTE DO Ot Z01.818 SP ENCOUNTER FOR OTHER PREPROCEDURAL EXAMIN SP 08/26/2016 LIDIA CELESTE DO Ot J30. 9 SP RHINITIS, UNSPECIFIED SP 08/26/2016 LIDIA CELESTE DO Ot R06. 00 SP UNSPECIFIED SP 08/27/2016 LIDIA CELESTE DO Ot R06. 00 SP UNSPECIFIED SP 08/27/2016 LIDIA CELESTE DO Ot J84. 9 SP PULMONARY DISEASE, UNSPECIF SP 08/28/2016 LIDIA CELESTE DO Ot J30. 9 SP RHINITIS, UNSPECIFIED SP 08/28/2016 LIDIA CELESTE DO Ot R06. 00 SP UNSPECIFIED SP 08/28/2016 LIDIA CELESTE DO Ot J84. 9 SP PULMONARY DISEASE, UNSPECIF SP 09/02/2016 LIDIA CELESTE DO Ot J84. 9 SP PULMONARY DISEASE, UNSPECIF SP 09/04/2016 TEJAS ROJAS INTELLECTUAL PROPERTY MANAGER Ot V70.0 SP ROUTINE MEDICAL EXAM SP 09/04/2016 TEJAS ROJAS INTELLECTUAL PROPERTY MANAGER Ot V76.12 SP OTH SCREEN MAMMO-MALIGN NEOPLASM OF [place]BI[place] SP 09/04/2016 [facility] DO Ot 211. 3 SP NEOPLASM LG BOWEL SP 09/04/2016 [facility] [place] DO Ot 562. 10 SP COLON (W/O MENT OF HEMORR SP 09/04/2016 [facility] BAL[place] DO Ot V76. 51 SP MAL NEOP-COLON SP 09/04/2016 [facility] BALTAZAR DO Ot V72. 84 SP PRE-OPERATIVE NOS SP 09/04/2016 FAUZIA ACOSTA INTELLECTUAL PROPERTY MANAGER Ot M19.042 SP PRIMARY OSTEOARTHRITIS, LEFT HAND SP 09/04/2016 TINO LUNDBERG, MARBIN Taylor Ot Z12.31 SP ENCNTR SCREEN MAMMOGRAM FOR MALIGNANT NE SP 09/04/2016 TAI CLARK MANAGER OF HOUSEKEEPING Ot R05 SP COUGH SP 09/04/2016 TAI CLARK MANAGER OF HOUSEKEEPING Ot R06.00 SP DYSPNEA, UNSPECIFIED SP 09/04/2016 LIDIA CELESTE DO Ot J30. 9 SP RHINITIS, UNSPECIFIED SP 09/04/2016 LIDIA CELESTE DO Ot K80. 20 SP OF GALLBLADDER W/O CHOLECYSTITI SP 09/04/2016 LIDIA CELESTE DO Ot R06. 00 SP UNSPECIFIED SP 09/04/2016 LIDIA CELESTE DO Ot R59. 0 SP ENLARGED LYMPH NODES SP 09/04/2016 JUSTO PEÑA INTELLECTUAL PROPERTY MANAGER Ot R06.00 SP DYSPNEA, UNSPECIFIED SP 09/04/2016 JUSTO PEÑA INTELLECTUAL PROPERTY MANAGER Ot R09.02 SP HYPOXEMIA SP 09/04/2016 LIDIA CELESTE DO Ot J30. 9 SP RHINITIS, UNSPECIFIED SP 09/04/2016 LIDIA CELESTE DO Ot R06. 00 SP UNSPECIFIED SP 09/05/2016 TEJAS ROJAS INTELLECTUAL PROPERTY MANAGER Ot V70.0 SP ROUTINE MEDICAL EXAM SP 09/05/2016 TEJAS ROJAS INTELLECTUAL PROPERTY MANAGER Ot V76.12 SP OTH SCREEN MAMMO-MALIGN NEOPLASM OF [place]BI[place] SP 09/05/2016 [facility] [place] DO Ot 211. 3 SP NEOPLASM LG BOWEL SP 09/05/2016 [place] DUC RODRIGUEZ Ot 562. 10 SP COLON (W/O MENT OF HEMORR SP 09/05/2016 [place] DUC RODRIGUEZ Ot V76. 51 SP MAL NEOP-COLON SP 09/05/2016 [place] DUC RODRIGUEZ Ot V72. 84 SP PRE-OPERATIVE NOS SP 09/05/2016 FAUZIA ACOSTA INTELLECTUAL PROPERTY MANAGER Ot M19.042 SP PRIMARY OSTEOARTHRITIS, LEFT HAND SP 09/05/2016 TINO LUNDBERG, MARBIN Taylor Ot Z12.31 SP ENCNTR SCREEN MAMMOGRAM FOR MALIGNANT NE SP 09/05/2016 TAI CLARK MANAGER OF HOUSEKEEPING Ot R05 SP COUGH SP 09/05/2016 TAI CLARK MANAGER OF HOUSEKEEPING Ot R06.00 SP DYSPNEA, UNSPECIFIED SP 09/05/2016 LIDIA CELESTE DO Ot J30. 9 SP RHINITIS, UNSPECIFIED SP 09/05/2016 LIDIA CELESTE DO Ot K80. 20 SP OF GALLBLADDER W/O CHOLECYSTITI SP 09/05/2016 LIDIA CELESTE DO Ot R06. 00 SP UNSPECIFIED SP 09/05/2016 LIDIA CELESTE DO Ot R59. 0 SP ENLARGED LYMPH NODES SP 09/05/2016 JUSTO PEÑA INTELLECTUAL PROPERTY MANAGER Ot R06.00 SP DYSPNEA, UNSPECIFIED SP 09/05/2016 JUSTO PEÑA INTELLECTUAL PROPERTY MANAGER Ot R09.02 SP HYPOXEMIA SP 09/05/2016 LIDIA CELESTE DO Ot J30. 9 SP RHINITIS, UNSPECIFIED SP 09/05/2016 LIDIA CELESTE DO Ot R06. 00 SP UNSPECIFIED SP 09/05/2016 LIDIA CELESTE DO Ot J84. 9 SP PULMONARY DISEASE, UNSPECIF SP 09/08/2016 TAI CLARK MANAGER OF HOUSEKEEPING Ot R05 SP COUGH SP 09/08/2016 TAI CLARK MANAGER OF HOUSEKEEPING Ot R06.00 SP DYSPNEA, UNSPECIFIED SP 09/08/2016 JUSTO PEÑA INTELLECTUAL PROPERTY MANAGER Ot R06.00 SP DYSPNEA, UNSPECIFIED SP 09/08/2016 JUSTO PEÑA INTELLECTUAL PROPERTY MANAGER Ot R09.02 SP HYPOXEMIA SP 09/11/2016 TEJAS ROJAS INTELLECTUAL PROPERTY MANAGER Ot V70.0 SP ROUTINE MEDICAL EXAM SP 09/11/2016 TEJAS ROJAS INTELLECTUAL PROPERTY MANAGER Ot V76.12 SP OTH SCREEN MAMMO-MALIGN NEOPLASM OF [place]BI[place] SP 09/11/2016 [place] DUC RODRIGUEZ Ot 211. 3 SP NEOPLASM LG BOWEL SP 09/11/2016 [place] , DUC Cheek Ot 562. 10 SP COLON (W/O MENT OF HEMORR SP 09/11[facility]2016 [facility] 51 SP MAL NEOP-COLON SP 09/11/2016 [place] DUC RODRIGUEZ Ot V72. 84 SP PRE-OPERATIVE NOS SP 09/11/2016 FAUZIA ACOSTA INTELLECTUAL PROPERTY MANAGER Ot M19.042 SP PRIMARY OSTEOARTHRITIS, LEFT HAND SP 09/11/2016 TINO LUNDBERG, MARBIN Taylor Ot Z12.31 SP ENCNTR SCREEN MAMMOGRAM FOR MALIGNANT NE SP 09/11/2016 TAI CLARK MANAGER OF HOUSEKEEPING Ot R05 SP COUGH SP 09/11/2016 TAI CLARK MANAGER OF HOUSEKEEPING Ot R06.00 SP DYSPNEA, UNSPECIFIED SP 09/11/2016 LIDIA CELESTE DO Ot J30. 9 SP RHINITIS, UNSPECIFIED SP 09/11/2016 LIDIA CELESTE DO Ot K80. 20 SP OF GALLBLADDER W/O CHOLECYSTITI SP 09/11/2016 LIDIA CELESTE DO Ot R06. 00 SP UNSPECIFIED SP 09/11/2016 LIDIA CELESTE DO Ot R59. 0 SP ENLARGED LYMPH NODES SP 09/11/2016 JUSTO PEÑA INTELLECTUAL PROPERTY MANAGER Ot R06.00 SP DYSPNEA, UNSPECIFIED SP 09/11/2016 JUSTO PEÑA INTELLECTUAL PROPERTY MANAGER Ot R09.02 SP HYPOXEMIA SP 09/11/2016 LIDIA CELESTE DO Ot J30. 9 SP RHINITIS, UNSPECIFIED SP 09/11/2016 LIDIA CELESTE DO Ot R06. 00 SP UNSPECIFIED SP 09/11/2016 LIDIA CELESTE DO Ot J84. 9 SP PULMONARY DISEASE, UNSPECIF SP 09/11/2016 LIDIA CELESTE DO Ot J30. 9 SP RHINITIS, UNSPECIFIED SP 09/11/2016 LIDIA CELESTE DO Ot K80. 20 SP OF GALLBLADDER W/O CHOLECYSTITI SP 09/11/2016 LIDIA CELESTE DO Ot R06. 00 SP UNSPECIFIED SP 09/11/2016 LIDIA CELESTE DO Ot R59. 0 SP ENLARGED LYMPH NODES SP 09/11/2016 LIDIA CELESTE DO Ot J30. 9 SP RHINITIS, UNSPECIFIED SP 09/11/2016 LIDIA CELESTE DO Ot R06. 00 SP UNSPECIFIED SP 09/12/2016 ATI CLARK MANAGER OF HOUSEKEEPING Ot G47.10 SP HYPERSOMNIA, UNSPECIFIED SP 09/12/2016 TAI CLARK MANAGER OF HOUSEKEEPING Ot I10 SP ESSENTIAL (PRIMARY) HYPERTENSION SP 09/12/2016 TAI CLARKP Ot G47.10 SP HYPERSOMNIA, UNSPECIFIED SP 09/12/2016 TAI CLARK MANAGER OF HOUSEKEEPING Ot I10 SP ESSENTIAL (PRIMARY) HYPERTENSION SP 09/13/2016 TAI CLARK MANAGER OF HOUSEKEEPING Ot G47.10 SP HYPERSOMNIA, UNSPECIFIED SP 09/13/2016 TAI CLARK MANAGER OF HOUSEKEEPING Ot I10 SP ESSENTIAL (PRIMARY) HYPERTENSION SP 09/24/2016 LIDIA CELESTE DO Ot J84. 9 SP PULMONARY DISEASE, UNSPECIF SP 10/09/2016 JUSTO PEÑA APRN Ot J98.4 SP OTHER DISORDERS OF LUNG SP 10/10/2016 JUSTO PEÑA INTELLECTUAL PROPERTY MANAGER Ot J98.4 SP OTHER DISORDERS OF LUNG SP 10/10/2016 JUSTO PEÑA INTELLECTUAL PROPERTY MANAGER Ot R06.00 SP DYSPNEA, UNSPECIFIED SP 10/10/2016 JUSTO PEÑA INTELLECTUAL PROPERTY MANAGER Ot R09.02 SP HYPOXEMIA SP 10/16/2016 JUSTO PEÑA INTELLECTUAL PROPERTY MANAGER Ot J98.4 SP OTHER DISORDERS OF LUNG SP 10/16/2016 JUSTO PEÑA INTELLECTUAL PROPERTY MANAGER Ot R06.00 SP DYSPNEA, UNSPECIFIED SP 10/16/2016 JUSTO PEÑA APRN Ot R09.02 SP HYPOXEMIA SP 10/17/2016 JUSTO PEÑA INTELLECTUAL PROPERTY MANAGER Ot J98.4 SP OTHER DISORDERS OF LUNG SP 10/17/2016 BELINDA PEÑAINE [place]line INTELLECTUAL PROPERTY MANAGER Ot R06.00 SP DYSPNEA, UNSPECIFIED SP 10/17/2016 BELINDA PEÑAINE E INTELLECTUAL PROPERTY MANAGER Ot R09.02 SP HYPOXEMIA SP 10/21/2016 BELINDA PEÑAINE E INTELLECTUAL PROPERTY MANAGER Ot J98.4 SP OTHER DISORDERS OF LUNG SP 10/21/2016 BELINDA PEÑAINE E INTELLECTUAL PROPERTY MANAGER Ot R06.00 SP DYSPNEA, UNSPECIFIED SP 10/21/2016 BELINDA PEÑAINE E INTELLECTUAL PROPERTY MANAGER Ot R09.02 SP HYPOXEMIA SP 10/23/2016 BELINDA PEÑAINE E INTELLECTUAL PROPERTY MANAGER Ot J98.4 SP OTHER DISORDERS OF LUNG SP 10/23/2016 JUSTO PEÑA INTELLECTUAL PROPERTY MANAGER Ot R06.00 SP DYSPNEA, UNSPECIFIED SP 10/23/2016 JUSTO PEÑA INTELLECTUAL PROPERTY MANAGER Ot R09.02 SP HYPOXEMIA SP 11/04/2016 JUSTO PEÑA INTELLECTUAL PROPERTY MANAGER Ot J98.4 SP OTHER DISORDERS OF LUNG SP 11/04/2016 JUSTO PEÑA INTELLECTUAL PROPERTY MANAGER Ot R06.00 SP DYSPNEA, UNSPECIFIED SP 11/04/2016 JUSTO PEÑA E INTELLECTUAL PROPERTY MANAGER Ot R09.02 SP HYPOXEMIA SP 11/19/2016 BELINDA PEÑAINE E INTELLECTUAL PROPERTY MANAGER Ot J98.4 SP OTHER DISORDERS OF LUNG SP 11/19/2016 JUSTO PEÑA INTELLECTUAL PROPERTY MANAGER Ot R06.00 SP DYSPNEA, UNSPECIFIED SP 11/19/2016 JUSTO PEÑA INTELLECTUAL PROPERTY MANAGER Ot R09.02 SP HYPOXEMIA SP 2016 JUSTO PEÑA INTELLECTUAL PROPERTY MANAGER Ot J98.4 SP OTHER DISORDERS OF LUNG SP 2016 JUSTO PEÑA INTELLECTUAL PROPERTY MANAGER Ot R06.00 SP DYSPNEA, UNSPECIFIED SP 2016 JUSTO PEÑA INTELLECTUAL PROPERTY MANAGER Ot R09.02 SP HYPOXEMIA SP 01/18/2017 BELINDA PEÑAINE [place] INTELLECTUAL PROPERTY MANAGER Ot J98.4 SP OTHER DISORDERS OF LUNG SP 01/18/2017 JUSTO PEÑA INTELLECTUAL PROPERTY MANAGER Ot R06.00 SP DYSPNEA, UNSPECIFIED SP 01/18/2017 JUSTO PEÑA INTELLECTUAL PROPERTY MANAGER Ot R09.02 SP HYPOXEMIA SP 01/20/2017 BELINDA PEÑAINE [place] INTELLECTUAL PROPERTY MANAGER Ot J98.4 SP OTHER DISORDERS OF LUNG SP 01/20/2017 JUSTO PEÑA INTELLECTUAL PROPERTY MANAGER Ot R06.00 SP DYSPNEA, UNSPECIFIED SP 01/20/2017 JUSTO PEÑA INTELLECTUAL PROPERTY MANAGER Ot R09.02 SP HYPOXEMIA SP 05/25/2017 JUSTO PEÑA INTELLECTUAL PROPERTY MANAGER Ot J06.9 SP ACUTE UPPER RESPIRATORY INFECTION, UNSPE SP 05/25/2017 JUSTO PEÑA INTELLECTUAL PROPERTY MANAGER Ot Z86.19 SP PERSONAL HISTORY OF OTHER INFECTIOUS AND SP 06/27/2017 JUSTO PEÑA APRN Ot J06.9 SP ACUTE UPPER RESPIRATORY INFECTION, UNSPE SP 06/27/2017 JUSTO PEÑA INTELLECTUAL PROPERTY MANAGER Ot Z86.19 SP PERSONAL HISTORY OF OTHER INFECTIOUS AND SP 07/30/2017 JUSTO PEÑA APRN Ot 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 SP NEOPLASM LG BOWEL SP 01/18/2018 [place] DUC RODRIGUEZ Ot 562. 10 SP COLON (W/O MENT OF HEMORR SP 01/18/2018 [facility] V76. 51 SP MAL NEOP-COLON SP 01/18/2018 [facility] V72. 84 SP PRE-OPERATIVE NOS SP 01/18/2018 FAUZIA ACOSTA INTELLECTUAL PROPERTY MANAGER Ot M19.042 SP PRIMARY OSTEOARTHRITIS, LEFT HAND SP 01/18/2018 TINO LUNDBERG, MARBIN Taylor Ot Z12.31 SP ENCNTR SCREEN MAMMOGRAM FOR MALIGNANT NE SP 01/18/2018 TAI CLARK MANAGER OF HOUSEKEEPING Ot R05 SP COUGH SP 01/18/2018 TAI CLARK Ot R06.00 SP DYSPNEA, UNSPECIFIED SP 01/18/2018 LIDIA CELESTE DO Ot J30. 9 SP RHINITIS, UNSPECIFIED SP 01/18/2018 LIDIA CELESTE DO Ot K80. 20 SP OF GALLBLADDER W/O CHOLECYSTITI SP 01/18/2018 LIDIA CELESTE DO Ot R06. 00 SP UNSPECIFIED SP 01/18/2018 LIDIA CELESTE DO Ot R59. 0 SP ENLARGED LYMPH NODES SP 01/18/2018 JUSTO PEÑA APRN Ot R06.00 SP DYSPNEA, UNSPECIFIED SP 01/18/2018 JUSTO PEÑA APRN Ot R09.02 SP HYPOXEMIA SP 01/18/2018 LIDIA CELESTE DO Ot J30. 9 SP RHINITIS, UNSPECIFIED SP 01/18/2018 LIDIA CELESTE DO Ot R06. 00 SP UNSPECIFIED SP 01/18/2018 LIDIA CELESTE DO Ot J84. 9 SP PULMONARY DISEASE, UNSPECIF SP 01/18/2018 JUSTO PEÑA APRN Ot J98.4 SP OTHER DISORDERS OF LUNG SP 01/18/2018 JUSTO PEÑA APRN Ot R06.00 SP DYSPNEA, UNSPECIFIED SP 01/18/2018 JUSTO PEÑA APRN Ot R09.02 SP HYPOXEMIA SP 01/18/2018 JUSTO PEÑA INTELLECTUAL PROPERTY MANAGER Ot J98.4 SP OTHER DISORDERS OF LUNG SP 01/18/2018 JUSTO PEÑA APRN Ot R06.00 SP DYSPNEA, UNSPECIFIED SP 01/18/2018 JUSTO PEÑA APRN Ot R09.02 SP HYPOXEMIA SP 01/18/2018 JUSTO PEÑA INTELLECTUAL PROPERTY MANAGER Ot J98.4 SP OTHER DISORDERS OF LUNG SP 01/18/2018 JUSTO PEÑA APRN Ot R06.00 SP DYSPNEA, UNSPECIFIED SP 01/18/2018 JUSTO PEÑA APRN Ot R09.02 SP HYPOXEMIA SP 01/18/2018 JUSTO PEÑA INTELLECTUAL PROPERTY MANAGER Ot 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 SP 01/18/2018 JUSTO PEÑA APRN Ot J44.9 SP CHRONIC OBSTRUCTIVE PULMONARY DISEASE, U SP 01/18/2018 MARIANA, JUSTO E INTELLECTUAL PROPERTY MANAGER Ot K80.20 SP CALCULUS OF GALLBLADDER W/O CHOLECYSTITI SP 01/18/2018 JUSTO PEÑA APRN Ot J06.9 SP ACUTE UPPER RESPIRATORY INFECTION, UNSPE SP 01/18/2018 JUSTO PEÑA INTELLECTUAL PROPERTY MANAGER Ot Z86.19 SP PERSONAL HISTORY OF OTHER INFECTIOUS AND SP 01/19/2018 JUSTO PEÑA INTELLECTUAL PROPERTY MANAGER Ot 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, UNSPECIFIED, IN REM SP 01/19/2018 JUSTO PEÑA INTELLECTUAL PROPERTY MANAGER Ot J30.9 SP ALLERGIC RHINITIS, UNSPECIFIED SP 01/19/2018 JUSTO PEÑA APRN Ot R09.02 SP HYPOXEMIA SP 01/19/2018 JUSTO PEÑA INTELLECTUAL PROPERTY MANAGER Ot R91.8 SP OTHER NONSPECIFIC ABNORMAL FINDING OF SOPHIA SP 01/19/2018 JUSTO PEÑA APRN Ot Z86.19 SP PERSONAL HISTORY OF OTHER INFECTIOUS AND SP 01/19/2018 JUSTO PEÑA INTELLECTUAL PROPERTY MANAGER Ot 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, UNSPECIFIED, IN REM SP 01/19/2018 JUSTO PEÑA APRN Ot J30.9 SP ALLERGIC RHINITIS, UNSPECIFIED SP 01/19/2018 JUSTO PEÑA APRN Ot R09.02 SP HYPOXEMIA SP 01/19/2018 JUSTO PEÑA APRN Ot R91.8 SP OTHER NONSPECIFIC ABNORMAL FINDING OF SOPHIA SP 01/19/2018 JUSTO PEÑA INTELLECTUAL PROPERTY MANAGER Ot Z86.19 SP PERSONAL HISTORY OF OTHER INFECTIOUS AND SP 02/10/2018 JUSTO PEÑA INTELLECTUAL PROPERTY MANAGER Ot 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 3 SP NEOPLASM LG BOWEL SP 05/26/2018 [facility] DUC RODRIGUEZ Ot 562. 10 SP COLON (W/O MENT OF HEMORR SP [facility]/26/2018 [facility] SP MAL NEOP-COLON SP 05/26/2018 [facility] V72. 84 SP PRE-OPERATIVE NOS SP 05/26/2018 FAUZIA ACOSTA APRN Ot M19.042 SP PRIMARY OSTEOARTHRITIS, LEFT HAND SP 05/26/2018 TINO LUNDBERG, MARBIN Taylor Ot Z12.31 SP ENCNTR SCREEN MAMMOGRAM FOR MALIGNANT NE SP 05/26/2018 TAI CLARK MANAGER OF HOUSEKEEPING Ot R05 SP COUGH SP 05/26/2018 TAI CLARK Ot R06.00 SP DYSPNEA, UNSPECIFIED SP 05/26/2018 LIDIA CELESTE DO Ot J30. 9 SP RHINITIS, UNSPECIFIED SP 05/26/2018 LIDIA CELESTE DO Ot K80. 20 SP OF GALLBLADDER W/O CHOLECYSTITI SP 05/26/2018 LIDIA CELESTE DO Ot R06. 00 SP UNSPECIFIED SP 05/26/2018 LIDIA CELESTE DO Ot R59. 0 SP ENLARGED LYMPH NODES SP 05/26/2018 JUSTO PEÑA APRN Ot R06.00 SP DYSPNEA, UNSPECIFIED SP 05/26/2018 JUSTO PEÑA APRN Ot R09.02 SP HYPOXEMIA SP 05/26/2018 LIDIA CELESTE DO Ot J30. 9 SP RHINITIS, UNSPECIFIED SP 05/26/2018 LIDIA CELESTE DO Ot R06. 00 SP UNSPECIFIED SP 05/26/2018 LIDIA CELESTE DO Ot J84. 9 SP PULMONARY DISEASE, UNSPECIF SP 05/26/2018 JUSTO PEÑA APRN Ot J98.4 SP OTHER DISORDERS OF LUNG SP 05/26/2018 JUSTO PEÑA APRN Ot R06.00 SP DYSPNEA, UNSPECIFIED SP 05/26/2018 JUSTO PEÑA APRN Ot R09.02 SP HYPOXEMIA SP 05/26/2018 JUSTO PEÑA APRN Ot J98.4 SP OTHER DISORDERS OF LUNG SP 05/26/2018 MARIANA, JUSTO E INTELLECTUAL PROPERTY MANAGER Ot R06.00 SP DYSPNEA, UNSPECIFIED SP 05/26/2018 JUSTO PEÑA APRN Ot R09.02 SP HYPOXEMIA SP 05/26/2018 JUSTO PEÑA INTELLECTUAL PROPERTY MANAGER Ot J98.4 SP OTHER DISORDERS OF LUNG SP 05/26/2018 JUSTO PEÑA APRN Ot R06.00 SP DYSPNEA, UNSPECIFIED SP 05/26/2018 JUSTO PEÑA APRN Ot R09.02 SP HYPOXEMIA SP 05/26/2018 JUSTO PEÑA APRN Ot 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 SP 05/26/2018 JUSTO PEÑA APRN Ot J44.9 SP CHRONIC OBSTRUCTIVE PULMONARY DISEASE, U SP 05/26/2018 JUSTO PEÑA APRN Ot K80.20 SP CALCULUS OF GALLBLADDER W/O CHOLECYSTITI SP 05/26/2018 JUSTO PEÑA APRN Ot J06.9 SP ACUTE UPPER RESPIRATORY INFECTION, UNSPE SP 05/26/2018 JUSTO PEÑA INTELLECTUAL PROPERTY MANAGER Ot Z86.19 SP PERSONAL HISTORY OF OTHER INFECTIOUS AND SP 05/26/2018 JUSTO PEÑA INTELLECTUAL PROPERTY MANAGER Ot 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, UNSPECIFIED, IN REM SP 05/26/2018 JUSTO PEÑA APRN Ot J30.9 SP ALLERGIC RHINITIS, UNSPECIFIED SP 05/26/2018 JUSTO PEÑA APRN Ot R09.02 SP HYPOXEMIA SP 05/26/2018 JUSTO PEÑA APRN Ot R91.8 SP OTHER NONSPECIFIC ABNORMAL FINDING OF SOPHIA SP 05/26/2018 JUSTO PEÑA INTELLECTUAL PROPERTY MANAGER Ot Z86.19 SP PERSONAL HISTORY OF OTHER INFECTIOUS AND SP 05/31/2018 SANDRINE KNOX MD Ot Z47.1 SP FOLLOWING JOINT REPLACEMENT ZUNIGA SP 05/31/2018 SANDRINE KNOX MD Ot Z96.6 92 SPJOINT REPLACEMENT OF LEFT HAND SP 06/24/2018 SANDRINE KNOX MD Ot Z47.1 SP FOLLOWING JOINT REPLACEMENT ZUNIGA SP 06/24/2018 SANDRINE KNOX MD Ot Z96.6 92 SPJOINT REPLACEMENT OF LEFT HAND SP 08/02/2018 SANDRINE KNOX MD Ot Z47.1 SP FOLLOWING JOINT REPLACEMENT ZUNIGA SP 08/02/2018 SANDRINE KNOX MD Ot Z96.6 92 SPJOINT REPLACEMENT OF LEFT HAND SP 08/02/2018 ABILIO LUNDBERG, SANDRINE Luciano Ot Z47.1 SP FOLLOWING JOINT REPLACEMENT ZUNIGA SP 08/02/2018 ABILIO LUNDBERG, SANDRINE Luciano Ot Z96.6 92 SPJOINT REPLACEMENT OF LEFT HAND SP 09/08/2018 SANDRINE KNOX MD Ot Z47.1 SP FOLLOWING JOINT REPLACEMENT ZUNIGA SP 09/08/2018 SANDRINE KNOX MD Ot Z96.6 92 SPJOINT REPLACEMENT OF LEFT HAND SP 09/16/2018 SANDRINE KNOX MD Ot Z47.1 SP FOLLOWING JOINT REPLACEMENT ZUNIGA SP 09/16/2018 SANDRINE KNOX MD Ot Z96.6 92 SPJOINT REPLACEMENT OF LEFT HAND SP 02/25/2019 TAI CLARK MANAGER OF HOUSEKEEPING Ot Z12.31 SP ENCNTR SCREEN MAMMOGRAM FOR MALIGNANT NE SP 03/02/2019 TAI CLARK Ot Z12.31 SP ENCNTR SCREEN MAMMOGRAM FOR MALIGNANT NE SP 03/14/2019 TEJAS ROJAS INTELLECTUAL PROPERTY MANAGER Ot V70.0 SP ROUTINE MEDICAL EXAM SP 03/14/2019 TEJAS ROJAS INTELLECTUAL PROPERTY MANAGER Ot V76.12 SP OTH SCREEN MAMMO-MALIGN NEOPLASM OF [place] SP [facility] NEOPLASM LG BOWEL SP 03/14/2019 [place] DUC RODRIGUEZ Ot 562. 10 SP COLON (W/O MENT OF HEMORR SP 03/14/2019 [place] DUC RODRIGUEZ Ot V76. 51 SP MAL NEOP-COLON SP 03/14/2019 [facility]. 84 SP PRE-OPERATIVE NOS SP 03/14/2019 FAUZIA ACOSTA INTELLECTUAL PROPERTY MANAGER Ot M19.042 SP PRIMARY OSTEOARTHRITIS, LEFT HAND SP 03/14/2019 TINO LUNDBERG, MARBIN Taylor Ot Z12.31 SP ENCNTR SCREEN MAMMOGRAM FOR MALIGNANT NE SP 03/14/2019 TAI CLARK MANAGER OF HOUSEKEEPING Ot R05 SP COUGH SP 03/14/2019 TAI CLARK MANAGER OF HOUSEKEEPING Ot R06.00 SP DYSPNEA, UNSPECIFIED SP 03/14/2019 LIDIA CELESTE DO Ot J30. 9 SP RHINITIS, UNSPECIFIED SP 03/14/2019 LIDIA CELESTE DO Ot K80. 20 SP OF GALLBLADDER W/O CHOLECYSTITI SP 03/14/2019 LIDIA CELESTE DO Ot R06. 00 SP UNSPECIFIED SP 03/14/2019 BOOKER LIDIA Mc Ot R59. 0 SP ENLARGED LYMPH NODES SP 03/14/2019 JUSTO PEÑA APRN Ot R06.00 SP DYSPNEA, UNSPECIFIED SP 03/14/2019 JUSTO PEÑA APRN Ot R09.02 SP HYPOXEMIA SP 03/14/2019 BOOKER LIDIA Mc Ot J30. 9 SP RHINITIS, UNSPECIFIED SP 03/14/2019 BOOKER LIDIA Mc Ot R06. 00 SP UNSPECIFIED SP 03/14/2019 BOOKERLIDIA CHAMORRO DO Ot J84. 9 SP PULMONARY DISEASE, UNSPECIF SP 03/14/2019 JUSTO PEÑA APRN Ot J98.4 SP OTHER DISORDERS OF LUNG SP 03/14/2019 JUSTO PEÑA APRN Ot R06.00 SP DYSPNEA, UNSPECIFIED SP 03/14/2019 JUSTO PEÑA APRN Ot R09.02 SP HYPOXEMIA SP 03/14/2019 JUSTO PEÑA APRN Ot J98.4 SP OTHER DISORDERS OF LUNG SP 03/14/2019 JUSTO PEÑA APRN Ot R06.00 SP DYSPNEA, UNSPECIFIED SP 03/14/2019 JUSTO PEÑA APRN Ot R09.02 SP HYPOXEMIA SP 03/14/2019 JUSTO PEÑA APRN Ot J98.4 SP OTHER DISORDERS OF LUNG SP 03/14/2019 JUSTO PEÑA APRN Ot R06.00 SP DYSPNEA, UNSPECIFIED SP 03/14/2019 JUSTO PEÑA APRN Ot R09.02 SP HYPOXEMIA SP 03/14/2019 JUSTO PEÑA APRN Ot 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 SP 03/14/2019 JUSTO PEÑA APRN Ot J44.9 SP CHRONIC OBSTRUCTIVE PULMONARY DISEASE, U SP 03/14/2019 JUSTO PEÑA APRN Ot K80.20 SP CALCULUS OF GALLBLADDER W/O CHOLECYSTITI SP 03/14/2019 JUSTO PEÑA APRN Ot J06.9 SP ACUTE UPPER RESPIRATORY INFECTION, UNSPE SP 03/14/2019 JUSTO PEÑA APRN Ot Z86.19 SP PERSONAL HISTORY OF OTHER INFECTIOUS AND SP 03/14/2019 MARIANA, JUSTO E INTELLECTUAL PROPERTY MANAGER Ot 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, UNSPECIFIED, IN REM SP 03/14/2019 JUSTO PEÑA INTELLECTUAL PROPERTY MANAGER Ot J30.9 SP ALLERGIC RHINITIS, UNSPECIFIED SP 03/14/2019 JUSTO PEÑA APRN Ot R09.02 SP HYPOXEMIA SP 03/14/2019 JUSTO PEÑA INTELLECTUAL PROPERTY MANAGER Ot R91.8 SP OTHER NONSPECIFIC ABNORMAL FINDING OF SOPHIA SP 03/14/2019 JUSTO PEÑA INTELLECTUAL PROPERTY MANAGER Ot Z86.19 SP PERSONAL HISTORY OF OTHER INFECTIOUS AND SP 03/14/2019 TAI CLARK MANAGER OF HOUSEKEEPING Ot Z12.31 SP ENCNTR SCREEN MAMMOGRAM FOR MALIGNANT NE SP 03/14/2019 FAUZIA ACOSTA INTELLECTUAL PROPERTY MANAGER Ot N63.20 SP UNSPECIFIED LUMP IN THE LEFT BREAST, UNS SP 03/14/2019 FAUZIA ACOSTA INTELLECTUAL PROPERTY MANAGER Ot N63.20 SP UNSPECIFIED LUMP IN THE LEFT BREAST, UNS SP 03/29/2019 TAI CLARK MANAGER OF HOUSEKEEPING Ot Z12.31 SP ENCNTR SCREEN MAMMOGRAM FOR MALIGNANT NE SP 04/12/2019 FAUZIA ACOSTA INTELLECTUAL PROPERTY MANAGER Ot N60.02 SP SOLITARY CYST OF LEFT BREAST SP 04/12/2019 FAUZIA ACOSTA INTELLECTUAL PROPERTY MANAGER Ot N63.23 SP UNSPECIFIED LUMP IN THE LEFT BREAST, LOW SP 09/05/2019 JUSTO PEÑA APRN Ot 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, UNSPECIFIED, IN REM SP 09/05/2019 JUSTO PEÑA APRN Ot J18.8 SP OTHER PNEUMONIA, UNSPECIFIED ORGANISM SP 09/05/2019 JUSTO PEÑA APRN Ot J30.9 SP ALLERGIC RHINITIS, UNSPECIFIED SP 09/05/2019 JUSTO PEÑA APRN Ot Z86.19 SP PERSONAL HISTORY OF OTHER INFECTIOUS AND SP 09/23/2019 JUSTO PEÑA INTELLECTUAL PROPERTY MANAGER Ot 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, UNSPECIFIED, IN REM SP 09/23/2019 JUSTO PEÑA APRN Ot G47.33 SP OBSTRUCTIVE SLEEP APNEA (ADULT) (PEDIATR SP 09/23/2019 JUSTO PEÑA INTELLECTUAL PROPERTY MANAGER Ot J18.8 SP OTHER PNEUMONIA, UNSPECIFIED ORGANISM SP 09/23/2019 JUSTO PEÑA INTELLECTUAL PROPERTY MANAGER Ot J84.9 SP INTERSTITIAL PULMONARY DISEASE, UNSPECIF SP 09/23/2019 JUSTO PEÑA APRN Ot Z86.19 SP PERSONAL HISTORY OF OTHER INFECTIOUS AND SP 09/23/2019 MARBIN JIMÉNEZ MD Ot F32.9 SP MAJOR DEPRESSIVE DISORDER, SINGLE EPISOD SP 09/23/2019 MARBIN JIMÉNEZ MD Ot I1 0 SP (PRIMARY) HYPERTENSION SP 09/23/2019 MARBIN JIMÉNEZ MD Ot J18.9 SP PNEUMONIA, UNSPECIFIED ORGANISM SP 09/23/2019 MARBIN JIMÉNEZ MD Ot J30.2 SP OTHER SEASONAL ALLERGIC RHINITIS SP 09/23/2019 MARBIN JIMÉNEZ MD Ot J44.0 SP CHR OBSTRUCTIVE PULMON DISEASE WITH (ACU SP 09/23/2019 MARBIN JIMÉNEZ MD Ot J44.1 SP CHRONIC OBSTRUCTIVE PULMONARY DISEASE W SP 09/23/2019 MARBIN JIMÉNEZ MD Ot J84.9 SP INTERSTITIAL PULMONARY DISEASE, UNSPECIF SP 09/23/2019 MARBIN JIMÉNEZ MD Ot K21.9 SP GASTRO-ESOPHAGEAL REFLUX DISEASE WITHOUT SP 09/23/2019 MARBIN JIMÉNEZ MD Ot M19.91 SP PRIMARY OSTEOARTHRITIS, UNSPECIFIED SITE SP 09/23/2019 MARBIN JIMÉNEZ MD Ot M79.7 SP FIBROMYALGIA SP 09/23/2019 MARBIN JIMÉNEZ MD Ot Z87.891 SP PERSONAL HISTORY OF NICOTINE DEPENDENCE SP 09/23/2019 MARBIN JIMÉNEZ MD Ot Z99.81 SP DEPENDENCE ON SUPPLEMENTAL OXYGEN SP 09/24/2019 MARBIN JIMÉNEZ MD Ot F32.9 SP MAJOR DEPRESSIVE DISORDER, SINGLE EPISOD SP 09/24/2019 MABRIN JIMÉNEZ MD Ot I1 0 SP (PRIMARY) HYPERTENSION SP 09/24/2019 MARBIN JIMÉNEZ MD Ot J18.9 SP PNEUMONIA, UNSPECIFIED ORGANISM SP 09/24/2019 MARBIN JIMÉNEZ MD Ot J30.2 SP OTHER SEASONAL ALLERGIC RHINITIS SP 09/24/2019 MARBIN JIMÉNEZ MD Ot J44.0 SP CHR OBSTRUCTIVE PULMON DISEASE WITH (ACU SP 09/24/2019 MARBIN JIMÉNEZ MD Ot J44.1 SP CHRONIC OBSTRUCTIVE PULMONARY DISEASE W SP 09/24/2019 MARBIN JIMÉNEZ MD Ot J84.9 SP INTERSTITIAL PULMONARY DISEASE, UNSPECIF SP 09/24/2019 MARBIN JIMÉNEZ MD Ot K21.9 SP GASTRO-ESOPHAGEAL REFLUX DISEASE WITHOUT SP 09/24/2019 MARBIN JIMÉNEZ MD Ot M19.91 SP PRIMARY OSTEOARTHRITIS, UNSPECIFIED SITE SP 09/24/2019 MARBIN JIMÉNEZ MD Ot M79.7 SP FIBROMYALGIA SP 09/24/2019 MARBIN JIMÉNEZ MD Ot Z87.891 SP PERSONAL HISTORY OF NICOTINE DEPENDENCE SP 09/24/2019 MARBIN JIMÉNEZ MD Ot Z99.81 SP DEPENDENCE ON SUPPLEMENTAL OXYGEN SP 09/25/2019 JUSTO PEÑA APRN Ot J98.4 SP OTHER DISORDERS OF LUNG SP 09/25/2019 JUSTO PEÑA APRN Ot R06.00 SP DYSPNEA, UNSPECIFIED SP 09/25/2019 JUSTO PEÑA APRN Ot R09.02 SP HYPOXEMIA SP 09/25/2019 JUSTO PEÑA APRN Ot J06.9 SP ACUTE UPPER RESPIRATORY INFECTION, UNSPE SP 09/25/2019 JUSTO PEÑA APRN Ot Z86.19 SP PERSONAL HISTORY OF OTHER INFECTIOUS AND SP 09/25/2019 MARBIN JIMÉNEZ MD Ot F32.9 SP MAJOR DEPRESSIVE DISORDER, SINGLE EPISOD SP 09/25/2019 MARBIN JIMÉNEZ MD Ot I1 0 SP (PRIMARY) HYPERTENSION SP 09/25/2019 MARBIN JIMÉNEZ MD Ot J18.9 SP PNEUMONIA, UNSPECIFIED ORGANISM SP 09/25/2019 MARBIN JIMÉNEZ MD Ot J30.2 SP OTHER SEASONAL ALLERGIC RHINITIS SP 09/25/2019 MARBIN JIMÉNEZ MD Ot J44.0 SP CHR OBSTRUCTIVE PULMON DISEASE WITH (ACU SP 09/25/2019 MARBIN JIMÉNEZ MD Ot J44.1 SP CHRONIC OBSTRUCTIVE PULMONARY DISEASE W SP 09/25/2019 MARBIN JIMÉNEZ MD Ot J84.9 SP INTERSTITIAL PULMONARY DISEASE, UNSPECIF SP 09/25/2019 MRABIN JIMÉNEZ MD Ot K21.9 SP GASTRO-ESOPHAGEAL REFLUX DISEASE WITHOUT SP 09/25/2019 MARBIN JIMÉNEZ MD Ot M19.91 SP PRIMARY OSTEOARTHRITIS, UNSPECIFIED SITE SP 09/25/2019 MARBIN JIMÉNEZ MD Ot M79.7 SP FIBROMYALGIA SP 09/25/2019 MARBIN JIMÉNEZ MD Ot Z87.891 SP PERSONAL HISTORY OF NICOTINE DEPENDENCE SP 09/25/2019 TINO MD, MARBIN A Ot Z99.81 SP DEPENDENCE ON SUPPLEMENTAL OXYGEN SP 09/25/2019 TINO LUNDBERG, MARBIN Taylor Ot F32.9 SP MAJOR DEPRESSIVE DISORDER, SINGLE EPISOD SP 09/25/2019 TINO LUNDBERG, MARBIN Taylor Ot I1 0 SP (PRIMARY) HYPERTENSION SP 09/25/2019 MARBIN JIMÉNEZ MD Ot J18.9 SP PNEUMONIA, UNSPECIFIED ORGANISM SP 09/25/2019 MARBIN JIMÉNEZ MD Ot J30.2 SP OTHER SEASONAL ALLERGIC RHINITIS SP 09/25/2019 MARBIN JIMÉNEZ MD Ot J44.0 SP CHR OBSTRUCTIVE PULMON DISEASE WITH (ACU SP 09/25/2019 TINO LUNDBERG, MARBIN Taylor Ot J44.1 SP CHRONIC OBSTRUCTIVE PULMONARY DISEASE W SP 09/25/2019 TINO LUNDBERG, MARBIN Taylor Ot J84.9 SP INTERSTITIAL PULMONARY DISEASE, UNSPECIF SP 09/25/2019 MARBIN JIMÉNEZ MD Ot K21.9 SP GASTRO-ESOPHAGEAL REFLUX DISEASE WITHOUT SP 09/25/2019 MARBIN JIMÉNEZ MD Ot M19.91 SP PRIMARY OSTEOARTHRITIS, UNSPECIFIED SITE SP 09/25/2019 TINO LUNDBERG, MARBIN Taylor Ot M79.7 SP FIBROMYALGIA SP 09/25/2019 TINO LUNDBERG, MARBIN Taylor Ot Z87.891 SP PERSONAL HISTORY OF NICOTINE DEPENDENCE SP 09/25/2019 TINO LUNDBERG, MARBIN Taylor Ot Z99.81 SP DEPENDENCE ON SUPPLEMENTAL OXYGEN SP 09/26/2019 MARBIN JIMÉNEZ MD Ot F32.9 SP MAJOR DEPRESSIVE DISORDER, SINGLE EPISOD SP 09/26/2019 MARBIN JIMÉNEZ MD Ot I1 0 SP (PRIMARY) HYPERTENSION SP 09/26/2019 MARBIN JIMÉNEZ MD Ot J18.9 SP PNEUMONIA, UNSPECIFIED ORGANISM SP 09/26/2019 MARBIN JIMÉNEZ MD Ot J30.2 SP OTHER SEASONAL ALLERGIC RHINITIS SP 09/26/2019 MARBIN JIMÉNEZ MD Ot J44.0 SP CHR OBSTRUCTIVE PULMON DISEASE WITH (ACU SP 09/26/2019 MARBIN JIMÉNEZ MD Ot J44.1 SP CHRONIC OBSTRUCTIVE PULMONARY DISEASE W SP 09/26/2019 MARBIN JIMÉNEZ MD Ot J84.9 SP INTERSTITIAL PULMONARY DISEASE, UNSPECIF SP 09/26/2019 MARBIN JIMÉNEZ MD Ot K21.9 SP GASTRO-ESOPHAGEAL REFLUX DISEASE WITHOUT SP 09/26/2019 BRENDA JIMÉNEZ MDY A Ot M19.91 SP PRIMARY OSTEOARTHRITIS, UNSPECIFIED SITE SP 09/26/2019 MARBIN JIMÉNEZ MD Ot M79.7 SP FIBROMYALGIA SP 09/26/2019 MARBIN JIMÉNEZ MD Ot Z87.891 SP PERSONAL HISTORY OF NICOTINE DEPENDENCE SP 09/26/2019 MARBIN JIMÉNEZ MD Ot Z99.81 SP DEPENDENCE ON SUPPLEMENTAL OXYGEN SP 09/27/2019 MARBIN JIMÉNEZ MD Ot F32.9 SP MAJOR DEPRESSIVE DISORDER, SINGLE EPISOD SP 09/27/2019 MARBIN JIMÉNEZ MD Ot I1 0 SP (PRIMARY) HYPERTENSION SP 09/27/2019 MARBIN JIMÉNEZ MD Ot J18.9 SP PNEUMONIA, UNSPECIFIED ORGANISM SP 09/27/2019 MARBIN JIMÉNEZ MD Ot J30.2 SP OTHER SEASONAL ALLERGIC RHINITIS SP 09/27/2019 MARBIN JIMÉNEZ MD Ot J44.0 SP CHR OBSTRUCTIVE PULMON DISEASE WITH (ACU SP 09/27/2019 MARBIN JIMÉNEZ MD Ot J44.1 SP CHRONIC OBSTRUCTIVE PULMONARY DISEASE W SP 09/27/2019 MARBIN JIMÉNEZ MD Ot J84.9 SP INTERSTITIAL PULMONARY DISEASE, UNSPECIF SP 09/27/2019 MARBIN JIMÉNEZ MD Ot K21.9 SP GASTRO-ESOPHAGEAL REFLUX DISEASE WITHOUT SP 09/27/2019 MARBIN JIMÉNEZ MD Ot M19.91 SP PRIMARY OSTEOARTHRITIS, UNSPECIFIED SITE SP 09/27/2019 MARBIN JIMÉNEZ MD Ot M79.7 SP FIBROMYALGIA SP 09/27/2019 MARBIN JIMÉNEZ MD Ot Z87.891 SP PERSONAL HISTORY OF NICOTINE DEPENDENCE SP 09/27/2019 MARBIN JIMÉNEZ MD Ot Z99.81 SP DEPENDENCE ON SUPPLEMENTAL OXYGEN SP 09/27/2019 MARBIN JIMÉNEZ MD Ot F32.9 SP MAJOR DEPRESSIVE DISORDER, SINGLE EPISOD SP 09/27/2019 MARBIN JIMÉNEZ MD Ot I1 0 SP (PRIMARY) HYPERTENSION SP 09/27/2019 MARBIN JIMÉNEZ MD Ot J18.9 SP PNEUMONIA, UNSPECIFIED ORGANISM SP 09/27/2019 MARBIN JIMÉNEZ MD Ot J30.2 SP OTHER SEASONAL ALLERGIC RHINITIS SP 09/27/2019 MARBIN JIMÉNEZ MD Ot J44.0 SP CHR OBSTRUCTIVE PULMON DISEASE WITH (ACU SP 09/27/2019 MARBIN JIMÉNEZ MD Ot J44.1 SP CHRONIC OBSTRUCTIVE PULMONARY DISEASE W SP 09/27/2019 MARBIN JIMÉNEZ MD Ot J84.9 SP INTERSTITIAL PULMONARY DISEASE, UNSPECIF SP 09/27/2019 MARBIN JIMÉNEZ MD Ot K21.9 SP GASTRO-ESOPHAGEAL REFLUX DISEASE WITHOUT SP 09/27/2019 MARBIN JIMÉNEZ MD Ot M19.91 SP PRIMARY OSTEOARTHRITIS, UNSPECIFIED SITE SP 09/27/2019 MARBIN JIMÉNEZ MD Ot M79.7 SP FIBROMYALGIA SP 09/27/2019 MARBIN JIMÉNEZ MD Ot Z87.891 SP PERSONAL HISTORY OF NICOTINE DEPENDENCE SP 09/27/2019 MARBIN JIMÉNEZ MD Ot Z99.81 SP DEPENDENCE ON SUPPLEMENTAL OXYGEN SP 09/28/2019 JUSTO PEÑA APRN Ot 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, UNSPECIFIED, IN REM SP 09/28/2019 JUSTO PEÑA APRN Ot J18.8 SP OTHER PNEUMONIA, UNSPECIFIED ORGANISM SP 09/28/2019 JUSTO PEÑA APRN Ot J30.9 SP ALLERGIC RHINITIS, UNSPECIFIED SP 09/28/2019 JUSTO PEÑA APRN Ot Z86.19 SP PERSONAL HISTORY OF OTHER INFECTIOUS AND SP Procedures Code Description Performed By [place] [id number] DR COLEMAN OF RIGHT MAIN SP ENDO, D 09/23/[id number] COLEMAN OF LEFT MAIN SP ENDO, DI 09/23/2019 SP Results Test Result Range POS Complete blood count (CBC) with automate d white blood cell (WBC) differential - POS 15:57 Blood leukocytes automated count (number/volume) 9.6 10*3/uL POS 4.3-11.0 SP Blood erythrocytes automated count (number/volume) 4.49 10*6/uL SP 4.35-5.85 SP Venous blood hemoglobin measurement (mass/volume) 14.4 g/dL SP16.0 Blood hematocrit (volume fraction) 43 % 35-52 SP Automated erythrocyte mean corpuscular volume 97 [ foz_us] SP99 Automated erythrocyte mean corpuscular h emoglobin (mass per erythrocyte) SP 32 pg 25-34 SP Automated erythrocyte mean corpuscular h emoglobin concentration measurement SP 33 g/dL 32-36 SP Automated erythrocyte distribution width ratio 13. 9 % 10.0- SP Automated blood platelet count (count/volume) 292 10*3/uL SP400 Automated blood platelet mean volume measurement 10.2 [foz_us] SP 7.4-10.4 SP Automated blood neutrophils/100 leukocytes 58 % 42-75 SP Automated blood lymphocytes/100 leukocytes 28 % 12-44 SP Blood monocytes/100 leukocytes 10 % 0-12 SP Automated blood eosinophils/100 leukocytes 4 % 0-10 SP Automated blood basophils/100 leukocytes 1 % 0-10 SP Blood neutrophils automated count (number/volume) 5.6 10*3 SP7.8 Blood lymphocytes automated count (number/volume) 2.7 10*3 SP4.0 Blood monocytes automated count (number/volume) 0. 9 10*3 SP1.0 Automated eosinophil count 0.3 10*3/uL 0 .0-0.3 SP Automated blood basophil count (count/volume) 0.1 10*3/uL SP0.1 Comprehensive metabolic panel - 08/14/16 15:57 POS Serum or plasma sodium measurement (moles/volume) 141 mmol/L SP 135-145 SP Serum or plasma potassium measurement (moles/volume) 4.0 mmol/L SP 3.6-5.0 SP Serum or plasma chloride measurement (moles/volume) 108 mmol/L SP 98-107 SP Carbon dioxide 22 mmol/L 21-32 SP Serum or plasma anion gap determination (moles/volume) 11 mmol/L SP 5-14 SP Serum or plasma urea nitrogen measurement (mass/volume ) 12 mg/dL SP 7-18 SP Serum or plasma creatinine measurement (mass/volume) 0.72 mg/dL SP 0.60-1.30 SP Serum or plasma urea nitrogen/creatinine mass ratio 17 NRG SP Serum or plasma creatinine measurement w ith calculation of estimated glomerular SP rate > NRG SP Serum or plasma glucose measurement (mass/volume) 113 mg/dL SP105 Serum or plasma calcium measurement (mass/volume) 9.3 mg/dL SP10.1 Serum or plasma total bilirubin measurement (mass/volu me) 0.4 mg/dL SP 0.1-1.0 SP Serum or plasma alkaline phosphatase edmar surement (enzymatic activity/volume) SP 64 U/L 40-136 SP Serum or plasma aspartate aminotransfera se measurement (enzymatic SP 22 U/L 5-34 SP Serum or plasma alanine aminotransferase measurement (enzymatic activity/volume) SP 24 U/L 0-55 SP Serum or plasma protein measurement (mass/volume) 7.6 g/dL SP8.2 Serum or plasma albumin measurement (mass/volume) 4.2 g/dL SP4.5 Serum or plasma lithium measurement (mol es/volume) - 08/14/16 15:57 POS BNP level 97.9 pg/mL <100.0 SP Sputum Gram stain - 08/27/16 08:05 POS Bacteria identification in bronchial spe cimen by aerobe culture - 08/27/16 08:05 POS Bacteria identification in bronchial specimen by aerob e culture NORMAL POS NRG SP Mycobacterium species detection by organ ism specific culture - 08/27/16 08:05 POS DATE/TIME MICROSCOPIC 08/28/16 NRG POS MICROSCOPIC NO ACID-FAST BACILLI FOUND NRG SP DATE/TIME VERBAL REPORT 08-28-2016 NRG SP VERBAL REPORT FROM [facility] AFB SMEAR NEGATIVE NRG SP AFB CULTURE NO MYCOBACTERIA RECOVERED AFTER 6 WEEK S NRG SP DATE FINAL AFB CULTURE 10/09/16 NRG SP Fungus culture - 08/27/16 08:05 POS QUANTITY OF GROWTH Isolated NR SP FTX;REPORTABLE SENT TO [facility] FOR ID NR SP FUNGUS REPORT FUNGUS GROWTH OBSERVED NR SP Fungus culture [id number] NR SP IDENTIFICATION TO FOLLOW ID BY [facility] NRG SP Blood CBC with ordered manual differenti al panel - 06/29/17 11:34 POS Blood leukocytes automated count (number/volume) 7.0 10*3/uL SP 4.3-11.0 SP Blood erythrocytes automated count (number/volume) 4.05 10*6/uL SP 4.35-5.85 SP Venous blood hemoglobin measurement (mass/volume) 13.0 g/dL SP16.0 Blood hematocrit (volume fraction) 40 % 35-52 SP Automated erythrocyte mean corpuscular volume 99 [ foz_us] SP99 Automated erythrocyte mean corpuscular h emoglobin (mass per erythrocyte) SP 32 pg 25-34 SP Automated erythrocyte mean corpuscular h emoglobin concentration measurement SP 32 g/dL 32-36 SP Automated erythrocyte distribution width ratio 13. 5 % 10.0- SP Automated blood platelet count (count/volume) 292 10*3/uL SP400 Automated blood platelet mean volume measurement 10.1 [foz_us] SP 7.4-10.4 SP Automated blood neutrophils/100 leukocytes 60 % 42-75 SP Automated blood lymphocytes/100 leukocytes 28 % 12-44 SP Blood monocytes/100 leukocytes 9 % 0-12 SP Automated blood eosinophils/100 leukocytes 2 % 0-10 SP Automated blood basophils/100 leukocytes 1 % 0-10 SP Blood neutrophils automated count (number/volume) 4.2 10*3 SP7.8 Blood lymphocytes automated count (number/volume) 2.0 10*3 SP4.0 Blood monocytes automated count (number/volume) 0. 6 10*3 SP1.0 Automated eosinophil count 0.1 10*3/uL 0 .0-0.3 SP Automated blood basophil count (count/volume) 0.0 10*3/uL SP0.1 Hypersensitivity pneumonitis screen - 11:34 POS Saccharopolyspora rectivirgula IgE serum NEGATIVE NEGATIVE SP Thermoactinomyces vulgaris ab NEGATIVE NEGATIVE SP Aspergillus fumigatus Ab [Units/volume] in Serum N EGATIVE SP [place] feather IgE Ab RAST class [Presence] in Serum NEGATIVE SP NEGATIVE SP Thermoactinomyces candidus ab NEGATIVE NEGATIVE SP Saccharomonospora viridis ab NEGATIVE N EGATIVE SP Comprehensive metabolic panel - 09/22/19 10:45 POS Serum or plasma sodium measurement (moles/volume) 139 mmol/L SP 135-145 SP Serum or plasma potassium measurement (moles/volume) 3.9 mmol/L SP 3.6-5.0 SP Serum or plasma chloride measurement (moles/volume) 105 mmol/L SP 98-107 SP Carbon dioxide 25 mmol/L 21-32 SP Serum or plasma anion gap determination (moles/volume) 9 mmol/L SP 5-14 SP Serum or plasma urea nitrogen measurement (mass/volume ) 11 mg/dL SP 7-18 SP Serum or plasma creatinine measurement (mass/volume) 0.72 mg/dL SP 0.60-1.30 SP Serum or plasma urea nitrogen/creatinine mass ratio 15 NRG SP Serum or plasma creatinine measurement w ith calculation of estimated glomerular SP rate > NRG SP Serum or plasma glucose measurement (mass/volume) 105 mg/dL SP105 Serum or plasma calcium measurement (mass/volume) 9.4 mg/dL SP10.1 Serum or plasma total bilirubin measurement (mass/volu me) 0.5 mg/dL SP 0.1-1.0 SP Serum or plasma alkaline phosphatase edmar surement (enzymatic activity/volume) SP 61 U/L 40-136 SP Serum or plasma aspartate aminotransfera se measurement (enzymatic SP 20 U/L 5-34 SP Serum or plasma alanine aminotransferase measurement (enzymatic activity/volume) SP 14 U/L 0-55 SP Serum or plasma protein measurement (mass/volume) 7.3 g/dL SP8.2 Serum or plasma albumin measurement (mass/volume) 4.0 g/dL SP4.5 CALCIUM CORRECTED 9.4 mg/dL 8.5-10.1 SP Influenza virus A and B antigen detectio n - 09/22/19 10:45 POS FLU RESULT NEGATIVE FOR INFLUENZA A AND B ANTIGENS BY IA SP Methicillin resistant Staphylococcus aur eus (MRSA) screening culture - 09/22/19 POS Methicillin resistant Staphylococcus aureus (MRSA) scr eening culture POS NRG SP Bacterial blood culture - 09/22/19 10:54 POS Bacterial blood culture NG NRG SP Bacterial blood culture - 09/22/19 10:59 POS Bacterial blood culture NG NRG SP Complete urinalysis with reflex to cultu re - 09/22/19 11:20 POS Urine color determination YELLOW NRG SP Urine clarity determination CLEAR NR G SP Urine pH measurement by test strip 6.0 5-9 SP Specific gravity of urine by test strip 1.015 1.016-1.022 SP Urine protein assay by test strip, semi-quantitative NEGATIVE SP NEGATIVE SP Urine glucose detection by automated test strip NE GATIVE SP Erythrocytes detection in urine sediment by light micr oscopy TRACE-I SP NEGATIVE SP Urine ketones detection by automated test strip NE GATIVE SP Urine nitrite detection by test strip NEGATIVE NEGATIVE SP Urine total bilirubin detection by test strip NEGA TIVE SP Urine urobilinogen measurement by automated test strip (mass/volume) SP mg/dL <=1.0 SP Urine leukocyte esterase detection by dipstick NEG ATIVE SP Automated urine sediment erythrocyte cou nt by microscopy (number/high power SP [HPF] NRG SP Automated urine sediment leukocyte count by microscopy (number/high power field) SP [HPF] NRG SP Bacteria detection in urine sediment by light microsco py TRACE SP NRG SP Squamous epithelial cells detection in u rine sediment by light microscopy SP 5-10 NRG SP Crystals detection in urine sediment by light microsco py NONE SP NRG SP Casts detection in urine sediment by light microscopy NONE SP Mucus detection in urine sediment by light microscopy NEGATIVE SP NRG SP Complete urinalysis with reflex to culture NO NRG SP Urine Legionella pneumophila antigen ass ay - 09/22/19 11:20 POS Urine Legionella pneumophila antigen assay Negativ e NRG SP Streptococcus pneumoniae antigen detecti on - 09/22/19 11:20 POS Streptococcus pneumoniae antigen detection Negativ e NRG SP RESPIRATORY VIRUS PANEL - 09/22/19 11:20 POS Serum ragweed IgE antibody assay Not Detected Not Detected SP Serum or plasma aripiprazole measurement (mass/volume) Not Detected SP Not Detected SP PARAINFLU 3 PCR Not Detected Not Detect ed SP METAPNEUMO PCR Not Detected Not Detecte d SP Adenovirus detection, CSF, PCR Not Detected Not Detected SP INFLUENZA A PCR Not Detected Not Detect ed SP INFLUENZA B PCR Not Detected Not Detect ed SP Complete blood count (CBC) with automate d white blood cell (WBC) differential - POS 03:35 Blood leukocytes automated count (number/volume) 8.9 10*3/uL POS 4.3-11.0 SP Blood erythrocytes automated count (number/volume) 3.76 10*6/uL SP 4.35-5.85 SP Venous blood hemoglobin measurement (mass/volume) 12.2 g/dL SP16.0 Blood hematocrit (volume fraction) 37 % 35-52 SP Automated erythrocyte mean corpuscular volume 99 [ foz_us] SP99 Automated erythrocyte mean corpuscular h emoglobin (mass per erythrocyte) SP 32 pg 25-34 SP Automated erythrocyte mean corpuscular h emoglobin concentration measurement SP 33 g/dL 32-36 SP Automated erythrocyte distribution width ratio 14. 1 % 10.0- SP Automated blood platelet count (count/volume) 307 10*3/uL SP400 Automated blood platelet mean volume measurement 9.8 [foz_us] SP 7.4-10.4 SP Automated blood neutrophils/100 leukocytes 89 % 42-75 SP Automated blood lymphocytes/100 leukocytes 10 % 12-44 SP Blood monocytes/100 leukocytes 1 % 0-12 SP Automated blood eosinophils/100 leukocytes 0 % 0-10 SP Automated blood basophils/100 leukocytes 0 % 0-10 SP Blood neutrophils automated count (number/volume) 7.8 10*3 SP7.8 Blood lymphocytes automated count (number/volume) 0.9 10*3 SP4.0 Blood monocytes automated count (number/volume) 0. 1 10*3 SP1.0 Automated eosinophil count 0.0 10*3/uL 0 .0-0.3 SP Automated blood basophil count (count/volume) 0.0 10*3/uL SP0.1 Whole blood basic metabolic panel - 09/03 12/21 03:35 POS Serum or plasma sodium measurement (moles/volume) 141 mmol/L SP 135-145 SP Serum or plasma potassium measurement (moles/volume) 4.1 mmol/L SP 3.6-5.0 SP Serum or plasma chloride measurement (moles/volume) 108 mmol/L SP 98-107 SP Carbon dioxide 23 mmol/L 21-32 SP Serum or plasma anion gap determination (moles/volume) 10 mmol/L SP 5-14 SP Serum or plasma urea nitrogen measurement (mass/volume ) 11 mg/dL SP 7-18 SP Serum or plasma creatinine measurement (mass/volume) 0.74 mg/dL SP 0.60-1.30 SP Serum or plasma urea nitrogen/creatinine mass ratio 15 NRG SP Serum or plasma creatinine measurement w ith calculation of estimated glomerular SP rate > NRG SP Serum or plasma glucose measurement (mass/volume) 146 mg/dL SP105 Serum or plasma calcium measurement (mass/volume) 9.0 mg/dL SP10.1 Serum or plasma phosphate measurement (m ass/volume) - 09/23/19 03:35 POS Serum or plasma phosphate measurement (mass/volume) 3.8 mg/dL SP 2.3-4.7 SP Magnesium - 09/23/19 03:35 POS Magnesium 1.9 mg/dL 1.6-2.4 SP Serum or plasma lithium measurement (mol es/volume) - 09/23/19 03:35 POS BNP PT 104.8 pg/mL <100.0 SP Sputum Gram stain - 09/23/19 08:45 POS Sputum Gram stain No bacteria seen NRG SP Mycobacterium species detection by organ ism specific culture - 09/23/19 08:45 POS Bacteria identification in bronchial spe cimen by aerobe culture - 09/23/19 08:45 POS QUANTITY OF GROWTH . NRG POS Bacteria identification in bronchial specimen by aerob e culture USUAL SP NRG SP Fungus culture - 09/23/19 08:45 POS Whole blood basic metabolic panel - 09/03 01/18 03:48 POS Serum or plasma sodium measurement (moles/volume) 144 mmol/L SP 135-145 SP Serum or plasma potassium measurement (moles/volume) 3.8 mmol/L SP 3.6-5.0 SP Serum or plasma chloride measurement (moles/volume) 109 mmol/L SP 98-107 SP Carbon dioxide 22 mmol/L 21-32 SP Serum or plasma anion gap determination (moles/volume) 13 mmol/L SP 5-14 SP Serum or plasma urea nitrogen measurement (mass/volume ) 13 mg/dL SP 7-18 SP Serum or plasma creatinine measurement (mass/volume) 0.69 mg/dL SP 0.60-1.30 SP Serum or plasma urea nitrogen/creatinine mass ratio 19 NRG SP Serum or plasma creatinine measurement w ith calculation of estimated glomerular SP rate > NRG SP Serum or plasma glucose measurement (mass/volume) 137 mg/dL SP105 Serum or plasma calcium measurement (mass/volume) 8.8 mg/dL SP10.1 Whole blood basic metabolic panel - 09/03 02/18 04:22 POS Serum or plasma sodium measurement (moles/volume) 143 mmol/L SP 135-145 SP Serum or plasma potassium measurement (moles/volume) 4.1 mmol/L SP 3.6-5.0 SP Serum or plasma chloride measurement (moles/volume) 107 mmol/L SP 98-107 SP Carbon dioxide 25 mmol/L 21-32 SP Serum or plasma anion gap determination (moles/volume) 11 mmol/L SP 5-14 SP Serum or plasma urea nitrogen measurement (mass/volume ) 17 mg/dL SP 7-18 SP Serum or plasma creatinine measurement (mass/volume) 0.79 mg/dL SP 0.60-1.30 SP Serum or plasma urea nitrogen/creatinine mass ratio 22 NRG SP Serum or plasma creatinine measurement w ith calculation of estimated glomerular SP rate > NRG SP Serum or plasma glucose measurement (mass/volume) 141 mg/dL SP105 Serum or plasma calcium measurement (mass/volume) 9.0 mg/dL SP10.1 Complete blood count (CBC) with automate d white blood cell (WBC) differential - POS 06:42 Blood leukocytes automated count (number/volume) 12.9 10*3/uL POS 4.3-11.0 SP Blood erythrocytes automated count (number/volume) 3.60 10*6/uL SP 4.35-5.85 SP Venous blood hemoglobin measurement (mass/volume) 11.5 g/dL SP16.0 Blood hematocrit (volume fraction) 36 % 35-52 SP Automated erythrocyte mean corpuscular volume 100 [foz_us] SP99 Automated erythrocyte mean corpuscular h emoglobin (mass per erythrocyte) SP 32 pg 25-34 SP Automated erythrocyte mean corpuscular h emoglobin concentration measurement SP 32 g/dL 32-36 SP Automated erythrocyte distribution width ratio 14. 4 % 10.0- SP Automated blood platelet count (count/volume) 297 10*3/uL SP400 Automated blood platelet mean volume measurement 9.9 [foz_us] SP 7.4-10.4 SP Automated blood neutrophils/100 leukocytes 88 % 42-75 SP Automated blood lymphocytes/100 leukocytes 8 % 12-44 SP Blood monocytes/100 leukocytes 3 % 0-12 SP Automated blood eosinophils/100 leukocytes 0 % 0-10 SP Automated blood basophils/100 leukocytes 0 % 0-10 SP Blood neutrophils automated count (number/volume) 11.4 10*3 SP7.8 Blood lymphocytes automated count (number/volume) 1.1 10*3 SP4.0 Blood monocytes automated count (number/volume) 0. 4 10*3 SP1.0 Automated eosinophil count 0.0 10*3/uL 0 .0-0.3 SP Automated blood basophil count (count/volume) 0.0 10*3/uL SP0.1 Manual absolute plasma cell count - 09/03 02/18 06:42 POS Blood monocytes/100 leukocytes 3 % NRG SP Manual blood segmented neutrophils/100 leukocytes 86 % NRG SP Manual blood lymphocytes/100 leukocytes 11 % NRG SP Whole blood basic metabolic panel - 09/03 03/20 04:30 POS Serum or plasma sodium measurement (moles/volume) 141 mmol/L SP 135-145 SP Serum or plasma potassium measurement (moles/volume) 3.9 mmol/L SP 3.6-5.0 SP Serum or plasma chloride measurement (moles/volume) 105 mmol/L SP 98-107 SP Carbon dioxide 27 mmol/L 21-32 SP Serum or plasma anion gap determination (moles/volume) 9 mmol/L SP 5-14 SP Serum or plasma urea nitrogen measurement (mass/volume ) 18 mg/dL SP 7-18 SP Serum or plasma creatinine measurement (mass/volume) 0.71 mg/dL SP 0.60-1.30 SP Serum or plasma urea nitrogen/creatinine mass ratio 25 NRG SP Serum or plasma creatinine measurement w ith calculation of estimated glomerular SP rate > NRG SP Serum or plasma glucose measurement (mass/volume) 125 mg/dL SP105 Serum or plasma calcium measurement (mass/volume) 8.4 mg/dL SP10.1 Serum or plasma lithium measurement (mol es/volume) - 09/26/19 04:30 POS BNP PT 132.5 pg/mL <100.0 SP Whole blood basic metabolic panel - 09/03 04/20 02:35 POS Serum or plasma sodium measurement (moles/volume) 142 mmol/L SP 135-145 SP Serum or plasma potassium measurement (moles/volume) 3.9 mmol/L SP 3.6-5.0 SP Serum or plasma chloride measurement (moles/volume) 107 mmol/L SP 98-107 SP Carbon dioxide 26 mmol/L 21-32 SP Serum or plasma anion gap determination (moles/volume) 9 mmol/L SP 5-14 SP Serum or plasma urea nitrogen measurement (mass/volume ) 16 mg/dL SP 7-18 SP Serum or plasma creatinine measurement (mass/volume) 0.77 mg/dL SP 0.60-1.30 SP Serum or plasma urea nitrogen/creatinine mass ratio 21 NRG SP Serum or plasma creatinine measurement w ith calculation of estimated glomerular SP rate > NRG SP Serum or plasma glucose measurement (mass/volume) 87 mg/dL SP105 Serum or plasma calcium measurement (mass/volume) 8.4 mg/dL SP10.1 Encounters ACCT No. Visit Date/Time Discharge Status POS Pt. Type Provider Facility Loc./Un it POS Complaint POS [id number] 09/22/2019 10:29:00 12:50:00 SP DIS Outpatient MARBIN JIMÉNEZ MD [facility] 4TH FLAKITO PNEUMONIA SP [id number] 09/21/2019 11:37:00 23:59:59 SP CLS Outpatient JUSTO PEÑA APRN [facility] RAD PNEUMONIA,HX OF SP [id number] 08/31/2019 12:01:00 10/30/2 019 23:59:59 SP CLS Outpatient JUSTO PEÑA INTELLECTUAL PROPERTY MANAGER [facility] RAD R06.00 SP [id number] 03/14/2019 13:31:00 23:59:59 SP CLS Outpatient FAUZIA ACOSTA INTELLECTUAL PROPERTY MANAGER [facility] RAD LT BREAST MASS SP [id number] 03/01/2019 12:49:00 23:59:59 SP CLS Outpatient TAI CLARK MANAGER OF HOUSEKEEPING [facility] RAD SCREENING SP [id number] 08/10/2018 11:19:00 13:54:00 SP DIS Outpatient SANDRINE KNOX MD [facility] S/P THUMB ARTHROPLASTY SP [id number] 07/28/2018 11:19:00 018 13:26:00 SP DIS Outpatient SANDRINE KNOX MD [facility] S/P THUMB ARTHROPLASTY SP [id number] 01/18/2018 12:08:00 018 23:59:59 SP CLS Outpatient JUSTO PEÑA INTELLECTUAL PROPERTY MANAGER [facility] RAD R06.00 J30.9 F17.201 R09.02 SP [id number] 08/02/2017 00:26:00 017 23:59:59 SP CLS Preadmit JUSTO PEÑA INTELLECTUAL PROPERTY MANAGER [facility] RAD HX OF HISTOPLASMOSIS , SP INFECTION [id number] 05/22/2017 12:46:00 017 00:01:00 SP DIS Outpatient JUSTO PEÑA INTELLECTUAL PROPERTY MANAGER [facility] RAD HX OF HISTOPLASMOSIS , SP INFECTION [id number] 06/29/2017 11:24:00 017 23:59:59 SP CLS Outpatient JUSTO PEÑA INTELLECTUAL PROPERTY MANAGER [facility] RAD DYSPNEA R06.00 SP [id number] 01/19/2017 13:00:00 017 23:59:59 SP CLS Preadmit JUSTO PEÑA INTELLECTUAL PROPERTY MANAGER [facility] PULM DYSPNEA SP [id number] 12/04/2016 09:00:00 03/19/2 017 00:01:00 SP DIS Outpatient JUSTO PEÑA APRN [facility] PULM DYSPNEA SP [id number] 10/16/2016 13:47:00 23:59:59 SP CLS Outpatient JUSTO PEÑA APRN [facility] RAD RESTRICTIVE LUNG DIS EASE SP [id number] 10/09/2016 10:54:00 23:59:59 SP CLS Outpatient JUSTO PEÑA APRN [facility] LAB DYSPNEA,RESTRICTIVE LUNG DISEASE SP [id number] 09/11/2016 21:22:00 06:35:00 SP DIS Outpatient TAI CLARK [facility] SLEEP SNORING,HYPERTANSION SP [id number] 09/04/2016 11:20:00 23:59:59 SP CLS Outpatient LIDIA CELESTE DO [facility] LAB J84.9 SP [id number] 08/27/2016 06:51:00 09:35:00 SP DIS Outpatient LIDIA CELESTE DO [facility] SDC DYSPNEA SP [id number] 08/26/2016 10:02:00 23:59:59 SP CLS Outpatient LIDIA CELESTE DO [facility] LAB DYSPNEA, ALLERGIC RHINITIS SP [id number] 08/25/2016 06:21:00 15:14:00 SP DIS Outpatient LIDIA CELESTE DO [facility] PREOP DYSPNEA SP [id number] 08/20/2016 08:57:00 23:59:59 SP CLS Outpatient JUSTO PEÑA APRN [facility] CARD DYSPNEA, HYPOXEMIA SP [id number] 08/14/2016 15:40:00 23:59:59 SP CLS Outpatient LIDIA CELESTE DO [facility] RAD DYSPNEA,ALLERGIC RHINITIS SP [id number] 07/25/2016 15:26:00 23:59:59 SP CLS Outpatient TAI CLARK [facility] RT COUGH,DYSPNEA SP [id number] 05/26/2016 10:00:00 23:59:59 SP CLS Outpatient MARBIN JIMÉNEZ MD [facility] RAD SCREENING SP [id number] 04/23/2016 14:45:00 23:59:59 SP CLS Outpatient FAUZIA ACOSTA INTELLECTUAL PROPERTY MANAGER [facility] RAD WRIST AND THUMB PAIN SP [id number] 06/19/2015 12:02:00 23:59:59 SP CLS Outpatient [place] [facility] RODRIGUEZ [facility] SDC SCREENING SP [id number] 06/14/2015 06:11:00 23:59:59 SP CLS Outpatient [place] D[facility] RODRIGUEZ [facility] PREOP SCREENING SP [id number] 05/09/2015 09:26:00 23:59:59 SP CLS Outpatient TEJAS ROJAS INTELLECTUAL PROPERTY MANAGER [facility] RAD SCREENING SP [id number] 05/02/2015 15:13:00 23:59:59 SP CLS Outpatient TEJAS ROJAS INTELLECTUAL PROPERTY MANAGER [facility] CARD MEDICARE PREVENTIVE EXAM SP [id number] 03/14/2019 13:32:00 SP Registration SP
--- NOTE | 2019-11-09 13:51 | Pulmonary Procedures ---
Pulmonary Procedures Date of Procedure Date of Service: Sep 22, 2019 Bronch Bronchoscopy with bilateral bronchial washes. Preop DX ILD persistent cough and infiltration Postop DX: same Complications: none After informed consent obtained and formal time out pt was sedated using Fentanyl and Versed. Bronchoscope was advanced through the nare and vocal cords. 1% lidocaine was used to anesthetize vocal cords, epiglottis, lamonte, and left/right main stem bronchus. An anatomical tour was undertaken down to the segmental bronchi bilaterally. No endobronchial lesions noted. Bilateral wash were obtained and mucous pluggs scheduled. Pt tolerated procedure well. No complications noted. Stat CXR is pending. LIDIA CELESTE DO Nov 09, 2019 13:51
== END 2019-09-27 12:50 | disposition home or self-care (01) | DRG 194 ==
LOC: ICU 10:29 → 4TH 09-23 14:30
PROVIDERS: ADMIT Family Medicine; ATTEND Family Medicine
PROC: 0B938ZX Drainage of Right Main Bronchus, Via Natural or Artificial Opening Endoscopic, Diagnostic (ICD-10-PCS; principal; 2019-09-23)
PROC: 0B978ZX Drainage of Left Main Bronchus, Via Natural or Artificial Opening Endoscopic, Diagnostic (ICD-10-PCS; 2019-09-23)
DX: J18.9 Pneumonia, unspecified organism (principal); J44.1 Chronic obstructive pulmonary disease with (acute) exacerbation; J44.0 Chronic obstructive pulmonary disease with (acute) lower respiratory infection; J84.9 Interstitial pulmonary disease, unspecified; I10 Essential (primary) hypertension; J30.2 Other seasonal allergic rhinitis; K21.9 Gastro-esophageal reflux disease without esophagitis; M79.7 Fibromyalgia; M19.91 Primary osteoarthritis, unspecified site; F32.9 Major depressive disorder, single episode, unspecified; Z99.81 Dependence on supplemental oxygen; Z87.891 Personal history of nicotine dependence
CPT/HCPCS: 36415; 71045; 71275; 80048; 80053; 81000; 82565; 83735; 83880; 84100; 84520; 85007; 85025; 85027; 87015; 87040; 87070; 87081; 87101; 87116; 87205; 87206; 87449; 87631; 87804; 87899; 94640; 94664; 94760

== ENCOUNTER → 2019-11-24 | Outpatient (CLI) | payer MEDICARE ==
[~2019-11-24] MED LIST changes: +AMOX-358 PO; +AZIT250T12 PO; +CALC-676 PO; +CATHETER FLUSH 10 ML SYR IV PRN; +CEFD300C3 PO; +CYAN-41 PO; +CYCL1DRO OU; +DULO60CA59 PO; +ESTR1PAT90 TD; +FLUC150T PO; +HOLD METFORMIN - RECEIVED CONTRAST 20 ML VIAL IV SCH; +HYDR25TA4 PO; +IOHEXOL 350 MG/ML 100 ML (OMNIPAQUE 350) VIAL IV ONE; +LISI10TA2 PO; +LOSA25TA41 PO; +MONT10TA24 PO; +NS 100 ML (IVPB) BAG IV ONE; +OLOP2.5D6 OU; +PRD20T PO; +RT-ALBUINH INH; +TRM50T PO; +UMEC1BLS INH; +VITA1TAB17 PO
[2019-11-24 10:44] LABS: BUN/CREATININE RATIO 18; CREATININE SERUM 0.71 MG/DL (0.60-1.30); GFR ESTIMATED > 60
--- NOTE | 2019-11-24 13:08 | Diagnostic Imaging Report ---
EXAMINATION: CT Chest with intravenous contrast. TECHNIQUE: Multiple contiguous axial images were obtained through the chest after the uneventful administration of intravenous contrast. All CT scans use one or more of the following dose optimizing techniques: automated exposure control, MA and/or KvP adjustment based on a patient size and exam type, or iterative reconstruction. HISTORY: PNEUMONIA,HYPOXEMIA. COMPARISON: 09/21/2019 FINDINGS: There is peripheral and basilar predominant reticulations and traction bronchiectasis which are quite severe. There is honeycombing in both lung bases, left greater than right. The degree of honeycombing has increased from prior exam but the acute appearing areas of groundglass have resolved. Heart size is normal. No pericardial effusion. Aorta is normal in caliber. There is no axillary or supraclavicular lymphadenopathy. Enlarged mediastinal lymph nodes are likely reactive to the pulmonary disease. Gallstones are present in the gallbladder. Duodenal diverticulum was seen. There are calcified granulomas in the spleen. There are no suspicious osseus lesions. IMPRESSION: 1. Peripheral and basilar predominant reticulations and honeycombing, left greater than right which according to Fleischner guidelines are a CT pattern typical for usual interstitial pneumonia. The acute appearing groundglass on the prior exam has resolved but the fibrosis and honeycombing has worsened. Dictated by: Dictated on workstation # [id number]
== END ==
LOC: RAD 10:14
PROVIDERS: ATTEND Nurse Practitioner Family
DX: J18.8 Other pneumonia, unspecified organism (principal); G47.33 Obstructive sleep apnea (adult) (pediatric); J30.9 Allergic rhinitis, unspecified; R09.02 Hypoxemia; Z86.19 Personal history of other infectious and parasitic diseases
CPT/HCPCS: 36415; 71260; 82565; 84520

== ENCOUNTER → 2019-12-12 | Outpatient (CLI) | payer MEDICARE ==
[~2019-12-12] MED LIST changes: -CATHETER FLUSH 10 ML SYR IV PRN; -HOLD METFORMIN - RECEIVED CONTRAST 20 ML VIAL IV SCH; -IOHEXOL 350 MG/ML 100 ML (OMNIPAQUE 350) VIAL IV ONE; -NS 100 ML (IVPB) BAG IV ONE
[2019-12-12 13:30] LABS: BILIRUBIN,DIRECT 0.2 MG/DL (0.0-0.3); BILIRUBIN,INDIRECT 0.3 MG/DL; BILIRUBIN,TOTAL 0.5 MG/DL (0.1-1.0); TOTAL PROTEIN 7.3 GM/DL (6.4-8.2)
--- NOTE | 2019-12-12 13:44 | Diagnostic Imaging Report ---
EXAMINATION: CT Chest without contrast. TECHNIQUE: Multiple contiguous axial images were obtained through the chest without the use of intravenous contrast. All CT scans use one or more of the following dose optimizing techniques: automated exposure control, MA and/or KvP adjustment based on a patient size and exam type, or iterative reconstruction. HISTORY: Shortness of breath, interstitial lung disease. COMPARISON: 11/24/2019. FINDINGS: Again seen is basilar and peripheral predominant honeycombing and reticulations without groundglass. There is traction bronchiolectasis. No air trapping is seen. There is no edema or pneumonia. No pleural effusion. No pneumothorax. No suspicious nodules. The heart size is normal. No pericardial effusion. The aorta is normal in caliber. There is no axillary or supraclavicular lymphadenopathy. Mildly enlarged mediastinal lymph nodes are likely reactive to the pulmonary disease and appear unchanged. Calcified mediastinal lymph nodes are in keeping with prior granulomatous infection. Limited views of the upper abdomen show cholelithiasis and calcified granulomas in the spleen. There are no suspicious osseus lesions. IMPRESSION: Unchanged peripheral and basilar predominant honeycombing without air-trapping or groundglass in a CT pattern typical of usual interstitial pneumonia according to Fleischner Society guidelines. Dictated by: Dictated on workstation # [id number]
== END ==
LOC: RAD 13:01
PROVIDERS: ATTEND Nurse Practitioner Family
DX: J84.112 Idiopathic pulmonary fibrosis (principal); R91.8 Other nonspecific abnormal finding of lung field; Z86.19 Personal history of other infectious and parasitic diseases
CPT/HCPCS: 36415; 71250; 80076

== ENCOUNTER → 2019-12-12 | Outpatient (CLI) | payer MEDICARE ==
--- NOTE | 2019-12-12 14:30 | Diagnostic Imaging Report ---
INDICATION: Shoulder pain. Three views were obtained. FINDINGS: There is arthrosis of the acromioclavicular joint. There is no fracture or dislocation. Soft tissues are unremarkable. There is some chronic-appearing interstitial prominence in the right lung. IMPRESSION: Degenerative changes in the shoulder without acute fracture or dislocation. Chronic-appearing interstitial disease in the right lung. Dictated by: Dictated on workstation # [id number]
== END ==
LOC: RAD 13:30
PROVIDERS: ATTEND Nurse Practitioner Family
DX: M19.011 Primary osteoarthritis, right shoulder (principal); J84.9 Interstitial pulmonary disease, unspecified
CPT/HCPCS: 73030

== ENCOUNTER 2020-01-12 10:45 | Outpatient (RCR) | payer MEDICARE ==
[2019-11-15 10:35] VITALS: BP 120/61
[2019-11-15 10:50] VITALS: BP 128/60
[2019-11-17 10:45] VITALS: BP 127/80
[2019-11-17 12:03] VITALS: BP 125/60
[2019-11-22 10:45] VITALS: BP 120/60
[2019-11-22 11:58] VITALS: BP 115/60
[2019-11-24 10:43] VITALS: BP 132/80
[2019-11-24 11:57] VITALS: BP 120/50
[2019-11-29 10:45] VITALS: BP 140/50
[2019-11-29 11:48] VITALS: BP 122/70
[2019-12-06 10:45] VITALS: BP 145/60
[2019-12-06 11:57] VITALS: BP 120/50
[2019-12-08 10:35] VITALS: BP 128/68
[2019-12-08 11:25] VITALS: BP 120/62
[2019-12-13 10:45] VITALS: BP 120/60
[2019-12-13 11:46] VITALS: BP 122/50
[2019-12-20 10:45] VITALS: BP 142/60
[2019-12-20 11:49] VITALS: BP 123/80
[2019-12-22 10:42] VITALS: BP 137/70
[2019-12-22 12:00] VITALS: BP 131/60
[2019-12-29 10:47] VITALS: BP 150/60
[2020-01-03 10:40] VITALS: BP 140/60
[2020-01-03 11:40] VITALS: BP 122/62
[2020-01-05 10:35] VITALS: BP 123/60
[2020-01-05 12:00] VITALS: BP 113/64
[2020-01-10 10:45] VITALS: BP 130/60
[2020-01-10 11:44] VITALS: BP 120/62
[2020-01-12 10:45] VITALS: BP 90/60
[~2020-01-12 10:45] MED LIST changes: -CETI10TA20 PO; +CETI10TA21 PO; -MONT10TA24 PO; +MONT10TA26 PO; -OLOP2.5D OU; +OLOP2.5D12 OU
[2020-01-12 12:01] VITALS: BP 128/60
== END 2020-02-07 | disposition home or self-care (01) ==
LOC: PULM 10:45
PROVIDERS: ATTEND Nurse Practitioner Family
DX: J30.9 Allergic rhinitis, unspecified (principal); G47.33 Obstructive sleep apnea (adult) (pediatric); J18.8 Other pneumonia, unspecified organism; R09.02 Hypoxemia; Z86.19 Personal history of other infectious and parasitic diseases
CPT/HCPCS: 94761; 99211

== ENCOUNTER → 2020-03-30 | Outpatient (CLI) | payer MEDICARE ==
[~2020-03-30] MED LIST changes: +RT-ALBUTEROL SULF 2.5 MG/3 ML PRE-MIX VIAL INH ONE; +RT-ALBUTEROL SULF 2.5 MG/3 ML PRE-MIX VIAL ONE
== END ==
LOC: RT 12:26
PROVIDERS: ATTEND Nurse Practitioner Family
DX: J84.112 Idiopathic pulmonary fibrosis (principal); G47.33 Obstructive sleep apnea (adult) (pediatric); G47.36 Sleep related hypoventilation in conditions classified elsewhere; J84.17 Other interstitial pulmonary diseases with fibrosis in diseases classified elsewhere; J30.9 Allergic rhinitis, unspecified; F17.201 Nicotine dependence, unspecified, in remission; Z86.19 Personal history of other infectious and parasitic diseases
CPT/HCPCS: 94060; 94726; 94729

== ENCOUNTER → 2020-04-16 | Outpatient (CLI) | payer MEDICARE ==
[~2020-04-16] MED LIST changes: -RT-ALBUTEROL SULF 2.5 MG/3 ML PRE-MIX VIAL INH ONE; -RT-ALBUTEROL SULF 2.5 MG/3 ML PRE-MIX VIAL ONE
== END ==
LOC: CARD 12:40
PROVIDERS: ATTEND Nurse Practitioner Family
DX: J84.112 Idiopathic pulmonary fibrosis (principal); J30.9 Allergic rhinitis, unspecified; G47.33 Obstructive sleep apnea (adult) (pediatric); J84.17 Other interstitial pulmonary diseases with fibrosis in diseases classified elsewhere; G47.36 Sleep related hypoventilation in conditions classified elsewhere; F17.201 Nicotine dependence, unspecified, in remission; Z86.19 Personal history of other infectious and parasitic diseases
CPT/HCPCS: 93306

== ENCOUNTER → 2020-05-11 | Outpatient (CLI) | payer MEDICARE ==
[2020-05-11 15:12] LABS: ALBUMIN 3.7 GM/DL (3.2-4.5)
[2020-05-11 15:15] LABS: TOTAL PROTEIN 7.5 GM/DL (6.4-8.2)
[2020-05-11 15:16] LABS: BILIRUBIN,TOTAL 0.5 MG/DL (0.1-1.0)
[2020-05-11 15:20] LABS: BILIRUBIN,DIRECT 0.2 MG/DL (0.0-0.3); BILIRUBIN,INDIRECT 0.3 MG/DL
== END ==
LOC: LAB 14:37
PROVIDERS: ATTEND Internal Medicine Critical Care Medicine
DX: J84.112 Idiopathic pulmonary fibrosis (principal); R91.8 Other nonspecific abnormal finding of lung field
CPT/HCPCS: 36415; 80076

== ENCOUNTER 2020-05-17 17:53 | Emergency (ER) | payer MEDICARE ==
[~2020-05-17] VITALS: Ht 160 cm; Wt 72.0 kg
[2020-05-17 18:30] VITALS: BP 137/80
[2020-05-17 18:45] VITALS: BP 129/76
[2020-05-17 18:48] LABS: BASOPHILS % (AUTO) 0 % (0-10); EOSINOPHILS # (AUTO) 0.2 10^3/uL (0.0-0.3); EOSINOPHILS % (AUTO) 2 % (0-10); HEMATOCRIT 38 % (35-52); HEMOGLOBIN 12.2 G/DL (11.5-16.0); LYMPHOCYTES # (AUTO) 1.6 X 10^3 (1.0-4.0); LYMPHOCYTES % (AUTO) 15 % (12-44); MEAN CORPUSCULAR HEMOGLOBIN 32 PG (25-34); MEAN CORPUSCULAR HGB CONC 32 G/DL (32-36); MEAN CORPUSCULAR VOLUME 98 FL (80-99); MEAN PLATELET VOLUME 9.6 FL (7.4-10.4); MONOCYTES # (AUTO) 0.9 X 10^3 (0.0-1.0); MONOCYTES % (AUTO) 8 % (0-12); NEUTROPHILS # (AUTO) 8.2 X 10^3 (1.8-7.8); NEUTROPHILS % (AUTO) 75 % (42-75); PLATELET COUNT 361 10^3/uL (130-400); RED CELL DISTRIBUTION WIDTH 13.3 % (10.0-14.5); WHITE BLOOD COUNT 10.9 10^3/uL (4.3-11.0)
[2020-05-17] MEDS ORDERED: NINT150C PO (18:54)
--- NOTE | 2020-05-17 18:55 | ED Respiratory ---
General Chief Complaint: Respiratory Problems Stated Complaint: HYPOXIC, HAS IPF Nursing Triage Note: PT STATES HYPOXIC WITH HX OF IPF TAKEN TO [facility] 3 BY W/C WITH 6 LPM O2 ON ARRIVAL. STARTED ON NEW MED, OFEV, ABOUT 6 WKS AGO. History of Present Illness Date Seen by Provider: May 17, 2020 Time Seen by Provider: 18:15 Initial Comments 69 year old female with history of IPF was noting her SaO2 to be 78- 90% at home. She wears O2 at 6L at home and uses CPAP at night. Dr. Conrad manages her IPF. She denies any exacerbation of her chronic SOA. She has noted non productive cough, sinus drainage and pressure. No fevers. She has been at home since COVID-19 started in the spring, due to her lung disease she has been very cautious. Her or daughter runs errands. No known COVID-19 exposure. Timing/Duration: this morning Severity: moderate Prior Episodes/Possible Cause: frequent episodes Associated Symptoms: No chest pain/soreness; cough (nonproductive); No dizziness, No earache, No facial pain, No fever/chills, No headache, No lightheadedness, No muscle aches; nasal congestion, nasal drainage, shortness of breath; No sinus infection, No sore throat, No wheezing Allergies and Home Medications Allergies Coded Allergies: lisinopril (Verified Adverse Reaction, Mild, cough, 09/25/19) Home Medications Albuterol Sulfate 1 Puff Puff, 2 PUFF INH Q4H PRN for SHORTNESS OF BREATH, (Reported) Amoxicillin/Potassium Clav 1 Each Tablet, 1 EACH PO BID Prescribed by: MARBIN JIMÉNEZ on 09/27/19 0955 Amoxicillin/Potassium Clav 1 Each Tablet, 1 EACH PO BID Prescribed by: ROHIT JOSEPH on 05/17/20 1903 Calcium Carbonate/Vitamin D3 1 Each Tablet, 1 TAB PO DAILY, (Reported) Cetirizine HCl 10 Mg Tablet, 10 MG PO DAILY, (Reported) Cyanocobalamin (Vitamin B-12) 1,000 Mcg Tablet, 1,000 MCG PO DAILY, (Reported) Cyclosporine 1 Each Droperette, 1 DROP OU BID, (Reported) Duloxetine HCl 60 Mg Capsule.dr, 60 MG PO HS, (Reported) Estradiol 1 Each Patch.tdsw, 0.5 MG TD SuTh, (Reported) Fluconazole 150 Mg Tablet, 150 MG PO DAILY Prescribed by: MARBIN JIMÉNEZ on 09/27/19954 Fluticasone Propionate 9.9 Ml [place].susp, 1 SPRAY NS DAILY PRN for ALLERGIES, (Reported) Ginkgo Biloba Extract 120 Mg Capsule, 120 MG PO DAILY, (Reported) Hydrochlorothiazide 25 Mg Tablet, 25 MG PO DAILY, (Reported) Losartan Potassium 25 Mg Tablet, 25 MG PO DAILY Prescribed by: MARBIN JIMÉNEZ on 09/27/19954 Montelukast Sodium 10 Mg Tablet, 10 MG PO HS, (Reported) Multivitamin 1 Each Tablet, 1 TAB PO DAILY, (Reported) Nintedanib Esylate 150 Mg Capsule, 150 MG PO BID, (Reported) Olopatadine HCl 2.5 Ml Drops, 1 DROP OU DAILY, (Reported) Omeprazole 40 Mg Capsule.dr, 40 MG PO DAILY, (Reported) Prednisone 20 Mg Tab, 20 MG PO UD 2tab/dayx 4days, 1tab/day x4days, 1/2tab/day x 4days then stop Prescribed by: MARBIN JIMÉNEZ on 09/27/19954 Tramadol HCl 50 Mg Tablet, 50-100 MG PO Q4H PRN for PAIN-MODERATE (5-7), (Reported) Umeclidinium Brm/Vilanterol Tr 1 Each Blst.w.dev, 1 PUFF INH DAILY, (Reported) Vitamin B Complex 1 Each Tablet, 1 TAB PO DAILY, (Reported) Patient Home Medication List Home Medication List Reviewed: Yes Review of Systems Review of Systems Constitutional: no symptoms reported, see HPI Respiratory: see HPI, cough, dyspnea on exertion Cardiovascular: no symptoms reported, see HPI; No chest pain Gastrointestinal: no symptoms reported, see HPI Genitourinary: no symptoms reported, see HPI All Other Systems Reviewed Negative Unless Noted: Yes Past Vmoibvc-Kqplyu-Qyxbqr Hx Past Med/Social Hx: Reviewed Nursing Past Med/Soc Hx Patient Social History Alcohol Beverage of Choice: Wine Former Smoker, Quit: Nov 25, 2014 2nd Hand Smoke Exposure: No Recent Foreign Travel: No Contact w/Someone Who Travel: No Recent Infectious Disease Expo: No Recent Hopitalizations: No Physical Abuse: No Sexual Abuse: No Mistreated: No Fear: No Immunizations Up To Date Date of Pneumonia Vaccine: Oct 21, 2017 Seasonal Allergies Seasonal Allergies: Yes Past Medical History Surgeries: Yes (c/s x2) Appendectomy, Hysterectomy, Lumpectomy, Tonsillectomy, Tubal Ligation Respiratory: Yes (wears oxygen at night and prn, INTERSITIAL LUNG DISEASE, HISTOPLASMOSIS) Cardiac: No Neurological: 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 History: Hysterectomy, Tubal Ligation Genitourinary: No Gastrointestinal: No Musculoskeletal: Yes Arthritis, Fibromyalgia Endocrine: No HEENT: No Loss of Vision: Denies Hearing Impairment: Denies Cancer: No Did You Recieve Any Treatments: No Psychosocial: Yes Depression Integumentary: No Blood Disorders: No Family Medical History Alzheimer's disease 19 MOTHER Cardiovascular disease 19 FATHER Dementia G8 SISTER Parkinson's disease 19 MOTHER Physical Exam Vital Signs - First Documented 05/17/20 18:11 Temp 37.0 Pulse 95 Resp 22 B/P (MAP) 154/82 (106) Pulse Ox 98 O2 Delivery Nasal Cannula O2 Flow Rate 6.00 Capillary Refill : Less Than 3 Seconds Height: 5'4.00" Weight: 165lbs. 0.4oz. 77.111024yf; 28.00 BMI Method: General Appearance: WD/WN, no apparent distress Eyes: Bilateral Eye Normal Inspection, Bilateral Eye PERRL, Bilateral Eye EOMI HEENT: PERRL/EOMI, normal ENT inspection, TMs normal, pharynx normal, other (tenderness frontal and max sinuses, Left > Right) Neck: non-tender, full range of motion, supple, normal inspection Respiratory: chest non-tender, lungs clear, normal breath sounds Cardiovascular: normal peripheral pulses, regular rate, rhythm Gastrointestinal: normal bowel sounds, non tender, soft Neurologic/Psychiatric: no motor/sensory deficits, alert, normal mood/affect, oriented x 3 Skin: normal color, warm/dry Lymphatic: no adenopathy Progress/Results/Core Measures Suspected Sepsis Recent Fever Within 48 Hours: No Infection Criteria Present: None New/Unexplained Altered Menta: No Sepsis Screen: No Definite Risk SIRS Temperature: Pulse: 95 Respiratory Rate: 22 Laboratory Tests 05/17/20 18:35: White Blood Count 10.9 Blood Pressure 154 /82 Mean: 106 Laboratory Tests 05/17/20 18:35: Creatinine 0.66, Platelet Count 361, Total Bilirubin 0.4 Results/Orders Lab Results Laboratory Tests Test 05/17/20 18:35 Range/Units White Blood Count 10.9 4.3-11.0 10^3/uL Red Blood Count 3.84 L 4.35-5.85 10^6/uL Hemoglobin 12.2 11.5-16.0 G/DL Hematocrit 38 35-52 % Mean Corpuscular Volume 98 80-99 FL Mean Corpuscular Hemoglobin 32 25-34 PG Mean Corpuscular Hemoglobin Concent 32 32-36 G/DL Red Cell Distribution Width 13.3 10.0-14.5 % Platelet Count 361 130-400 10^3/uL Mean Platelet Volume 9.6 7.4-10.4 FL Neutrophils (%) (Auto) 75 42-75 % Lymphocytes (%) (Auto) 15 12-44 % Monocytes (%) (Auto) 8 0-12 % Eosinophils (%) (Auto) 2 0-10 % Basophils (%) (Auto) 0 0-10 % Neutrophils # (Auto) 8.2 H 1.8-7.8 X 10^3 Lymphocytes # (Auto) 1.6 1.0-4.0 X 10^3 Monocytes # (Auto) 0.9 0.0-1.0 X 10^3 Eosinophils # (Auto) 0.2 0.0-0.3 10^3/uL Basophils # (Auto) 0.0 0.0-0.1 10^3/uL Sodium Level 136 135-145 MMOL/L Potassium Level 3.7 3.6-5.0 MMOL/L Chloride Level 100 98-107 MMOL/L Carbon Dioxide Level 25 21-32 MMOL/L Anion Gap 11 5-14 MMOL/L Blood Urea Nitrogen 8 7-18 MG/DL Creatinine 0.66 0.60-1.30 MG/DL Estimat Glomerular Filtration Rate > 60 BUN/Creatinine Ratio 12 Glucose Level 105 70-105 MG/DL Calcium Level 9.0 8.5-10.1 MG/DL Corrected Calcium 9.2 8.5-10.1 MG/DL Total Bilirubin 0.4 0.1-1.0 MG/DL Aspartate Amino Transf (AST/SGOT) 26 5-34 U/L Alanine Aminotransferase (ALT/SGPT) 11 0-55 U/L Alkaline Phosphatase 87 40-136 U/L Total Protein 7.6 6.4-8.2 GM/DL Albumin 3.7 3.2-4.5 GM/DL My Orders Orders - ROHIT JOSEPH Cbc With Automated Diff (05/17/20 18:19) Comprehensive Metabolic Panel (05/17/20 18:19) Chest 1 View, Ap/Pa Only (05/17/20 18:19) Benzonatate Capsule (Tessalon Perles) (05/17/20 19:03) Amoxicillin/Clavulanate Tablet (Augmenti (05/17/20 19:07) Vital Signs/I&O 05/17/20 05/17/20 05/17/20 05/17/20 18:11 18:30 18:45 19:00 Temp 37.0 Pulse 95 88 89 85 Resp 22 22 22 20 B/P (MAP) 154/82 (106) 137/80 (99) 129/76 (93) 143/66 (91) Pulse Ox 98 98 97 O2 Delivery Nasal Cannula Nasal Cannula Nasal Cannula Nasal Cannula O2 Flow Rate 6.00 6.00 3.00 2.00 Capillary Refill : Less Than 3 Seconds Blood Pressure Mean: 106 Progress Note : Time: 18:15 Progress Note patient seen and evaluated. Will complete labs and chest xray. No risks that would indicate need for COVID-19 testing at this time. SaO2 98% on 6L, will decrease O2 and monitor. 1830 SaO2 94% or > at 4L. Patient anxious being in ED and concerned about possible exposure risks. 1900 SaO2 90% or > at 2L. Labs and chest x-ray without acute findings. Discussed plan to treat the sinus infection, with her chronic lung disease. Discharge instructions and return precautions reviewed. Diagnostic Imaging Diagonstic Imaging: Xray Plain Films/CT/US/NM/MRI: chest Comments NAME: [facility] REC#: [id number] PT STATUS: REG ER : 1950 PHYSICIAN: ROHIT JOSEPH ADMIT DATE: 05/17/20/ER Draft Date of Exam:05/17/20 CHEST 1 VIEW, AP/PA ONLY INDICATION: Respiratory distress. TECHNIQUE: Single-view chest 06:30 p.m. CORRELATION STUDY: 09/27/2019. FINDINGS: Heart size is enlarged. Mediastinum is stable. Vasculature appears to be slightly increased. There is demonstration of rather coarse interstitial changes again. This overall appears to be increased, particularly in the mid and lower lung distributions. IMPRESSION: 1. Severe chronic interstitial lung disease. However, findings do appear to be slightly more prominent; particularly in the mid and lower lung muller and do raise concern for superimposed infiltrate and/or edema. Follow-up imaging, if clinically warranted. The vasculature appears slightly increased as well. Dictated on workstation # [id number] Dict: 05/17/20 1847 Trans: 05/17/20 1853 [id number] [id number] Interpreted by: SONNY MOURA DO Electronically signed by: Departure Impression Primary Impression: Cough Additional Impression: Sinusitis Qualified Codes: J01.10 - Acute frontal sinusitis, unspecified Disposition: HOME, SELF-CARE Condition: Stable Departure-Patient Inst. Decision time for Depature: 19:00 Referrals: MARBIN JIMÉNEZ MD (PCP/Family) Primary Care Physician Patient Instructions: Cough, Adult (DC), Sinusitis, Adult (DC) Add. Discharge Instructions: Use Afrin nasal spray 2 sprays in each nostril 4 times daily for 3 days. Use your home cough medicine as needed. Take antibiotics, as prescribed. Follow up with Pulmonology if symptoms are not improving or worsen. Return to the Emergency Dept for new, urgent health care problems. All discharge instructions reviewed with patient and/or family. Voiced understanding. Scripts Amoxicillin/Potassium Clav (Augmentin 875-125 Tablet) 1 Each Tablet 1 EACH PO BID, #14 TAB 0 Refills Prov: ROHIT JOSEPH 05/17/20 Copy Copies To 1: LIDIA CONRAD DO; MARBIN JIMÉNEZ MD, AMY ARNP May 17, 2020 18:55
[2020-05-17 18:57] LABS: ALBUMIN 3.7 GM/DL (3.2-4.5); CHLORIDE 100 MMOL/L (98-107); POTASSIUM 3.7 MMOL/L (3.6-5.0); SODIUM 136 MMOL/L (135-145)
[2020-05-17 18:59] LABS: GLUCOSE 105 MG/DL (70-105); TOTAL PROTEIN 7.6 GM/DL (6.4-8.2)
[2020-05-17 19:00] VITALS: BP 143/66
[2020-05-17 19:00] LABS: CARBON DIOXIDE 25 MMOL/L (21-32)
--- NOTE | 2020-05-17 19:00 | NUR ---
CALLED PT'S DAUGHTER LEXUS IN THE PARKING LOT AND UPDATED HER. STILL WAITING ON SOME LABS BUT PT IS MORE RELAXED AT THIS TIME.
[2020-05-17 19:01] LABS: BILIRUBIN,TOTAL 0.4 MG/DL (0.1-1.0)
[2020-05-17 19:03] LABS: ALKALINE PHOSPHATASE 87 U/L (40-136); CREATININE SERUM 0.66 MG/DL (0.60-1.30); GFR ESTIMATED > 60
[2020-05-17] MEDS ORDERED: BENZONATATE 100 MG (TESSALON) CAPSULE PO STA (19:03)
[2020-05-17] MEDS ORDERED: AMOX-358 PO (19:03)
[2020-05-17 19:04] LABS: BUN/CREATININE RATIO 12
[2020-05-17 19:06] LABS: ALANINE AMINOTRANSFERASE 11 U/L (0-55)
[2020-05-17] MEDS ORDERED: AUGMENTIN 875 MG TAB (AMOXICILLIN/CLAVULANATE) PO STA (19:07)
[2020-05-17 19:20] VITALS: BP 141/76
--- OUTSIDE RECORDS SUMMARY | 2020-05-17 19:34 | XMS REPORT | Clinical Summary ---
Author Author [facility] Organization [facility] Address Unknown Phone Unavailable Care Team Providers Care Dog Handler Name Role Phone EnnisYobany brittonjamaica RODRIGUEZ PCP Unavailable Ryan Reina MD Unavailable Ginny Romo MD Unavailable Unavailable Paul Mcclain MD Unavailable Neal Dash MD Unavailable Edward Vargas DO Unavailable Unavailable Yvette Swain PA-C Unavailable Unavailable Gillian Hickey BAKER APPRENTICE-DRIVING TEACHER Unavailable [phone] Kati Pichardo BAKER APPRENTICE Unavailable Mychart, Generic Provider Unavailable Unavailable Source Comments Some departments are not documenting in the electronic medical record. If you d o not see the information that you expected, contact Release of Information in [facility] Information Management department at [phone] for further assistan ce in locating additional records.[facility] Allergies No Known Allergies Medications End Date Status Medication Sig Dispensed Refills Start Date Active ketotifen(+) (ZADITOR) Place 1 Drop 0 0.025 % ophthalmic into or solution around eye(s) twice daily. Active mupirocin (BACTROBAN) 2 % Apply to 0 topical ointment affected area three times daily. Active clotrimazole-betamethason Apply to 0 e (LOTRISONE) 1-0.05 % affected area topical cream twice daily. Active gentamicin 0.3 % Apply 1 Drop 0 ophthalmic solution to both eyes every 4 hours. Active Tolnaftate 1 % soln Apply to 0 affected area. Active Tobramycin-Lotepred Place into 0 (ZYLET) 0.3-0.5 % drps or around eye(s). Active estradiol(+) 1 Patch twice 8 Patch 12 (VIVELLE-DOT) 0.05 mg/24 weekly. 4 hr patchIndications: Menopause Active fluticasone (FLONASE) 50 2 Sprays 1 Inhaler 11 0 mcg/actuation nasal daily. 4 sprayIndications: Allergic rhinitis Active fexofenadine-pseudoephedr Take 1 Tab by 30 Tab 3 ine (DIANNA-D 12 HOUR) mouth daily. 4 60-120 mg tablet Active Problems Problem Noted Date Allergic rhinitis 12/20/2007 Sinusitis (chronic) 12/20/2007 Depression 12/20/2007 Immunizations Name Administration Dates Next Due Tdap Vaccine 10/04/2012 Family History Relation Name Status Comments Father heide (Age 55) Mother tere (Age 8) Other Alive 2 siblings Social History Date Tobacco Use Types Packs/Day Years Used Current Some Day Smoker Cigarettes 0.3 Smokeless Tobacco: Never Used Tobacco Cessation: Ready to Quit: Yes; C ounseling Given: Yes Comments: once she gets moved permanently to [place] Drinks/Week oz/Week Comments Alcohol Use 3 Standard drinks or equivalent 2.5 wine Yes Sex Assigned at Date Recorded Not on file Industry Job Start Date Occupation Not on file Not on file Not on file Travel End Travel History Travel Start No recent travel history available. Last Filed Vital Signs Reading Time Taken Comments Vital Sign 142/86 01/04/2014 7:51 AM ORTHOPAEDIC DOCTOR Blood Pressure 84 01/04/2014 7:51 AM ORTHOPAEDIC DOCTOR Pulse 36.8 C (98.3 F) 01/04/2014 7:51 AM ORTHOPAEDIC DOCTOR Temperature 16 12/05/2013 12:28 PM ORTHOPAEDIC DOCTOR Respiratory Rate - - Oxygen Saturation - - Inhaled Oxygen Concentration 75.6 kg (166 lb 9 oz) 01/04/2014 7:51 AM ORTHOPAEDIC DOCTOR Weight 160.7 cm (5' 3.25") 01/04/2014 7:51 AM ORTHOPAEDIC DOCTOR Height 29.27 01/04/2014 7:51 AM ORTHOPAEDIC DOCTOR Body Mass Index Plan of Treatment Health Maintenance Due Date Last Done Comments HEPATITIS C SCREENING 1966 SHINGLES RECOMBINANT 1998 VACCINE (1 of 2) PNEUMONIA (PPSV23) 2013 VACCINE (1 of 1 - PPSV23) BREAST CANCER SCREENING 01/04/2015 01/04/2014 (Declined) MEDICARE ANNUAL WELLNESS 01/04/2015 01/04/2014 VISIT PHYSICAL (COMPREHENSIVE) 01/04/2015 01/04/2014, EXAM 05/15/2011, 05/05/2011, Additional history exists INFLUENZA VACCINE 08/02/2020 01/04/2014 (Declined) DTAP/TDAP VACCINES (2 - 10/04/2022 10/04/2012 Td) COLORECTAL CANCER 01/05/2024 01/04/2014 SCREENING (Declined) OSTEOPOROSIS Completed 01/06/2014, SCREENING/MONITORING 01/04/2014 Results Not on filefrom Last 3 Months Insurance Type Payer Benefit Subscriber ID Effective Phone Address Plan / Dates Group Medicare MEDICARE MEDICARE xxxxxxxxxx [id number] PART A AND resent B PPO BCBS JODY BCBS JODY xxxxxxxxxxxx 2013 PREF CARE -Present BLUE Advance Directives 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
--- OUTSIDE RECORDS SUMMARY | 2020-05-17 19:39 | XMS REPORT | Continuity of Care Document ---
Author Organization Unknown Address Unknown Phone Unavailable Allergies Active Description Code Type Severity Reaction Onset Reported/Identified Relationship to Patient Clinical Status Yes No Known Allergies [id number] Drug Allergy Unknown N/A 08/27/2016 Yes lisinopril [id number] Drug Allerg y Mild cough 09/25/2019 Medications There is no data. Problems Date Dx Coded Attending Type Code Diagnosis Diagnosed By 10/01/1325 ABILIO LUNDBERG, SANDRINE Luciano Ot Z47.1 AFTERCARE FOLLOWING JOINT REPLACEMENT ZUNIGA 10/01/1325 SANDRINE KNOX MD Ot Z96.6 92 FINGER-JOINT REPLACEMENT OF LEFT HAND 10/01/1353 SANDRINE KNOX MD, Ot Z47.1 AFTERCARE FOLLOWING JOINT REPLACEMENT ZUNIGA 10/01/1353 SANDRINE KNOX MD, Ot Z96.6 92 FINGER-JOINT REPLACEMENT OF LEFT HAND 05/09/2015 TEJAS ROJAS APRN Ot V70.0 05/18/2015 TEJAS ROJAS APRN Ot V70.0 05/25/2015 TEJAS ROJAS APRN Ot V76.12 06/19/2015 TEJAS ROJAS APRN Ot V70.0 06/19/2015 TEJAS ROJAS APRN Ot V76.12 06/19/2015 DUC PRESTON DO Ot V72. 84 06/20/2015 TEJAS ROJAS APRN Ot V70.0 06/20/2015 TEJAS ROJAS HIGH LEAD YARDER Ot V76.12 06/20/2015 DUC PRESTON DO Ot V72. 84 06/27/2015 DUC PRESTON DO Ot 211. 3 06/27/2015 DUC PRESTON DO Ot 562. 10 06/27/2015 DUC PRESTON DO Ot V76. 51 07/18/2015 DUC PRESTON DO Ot 211. 3 07/18/2015 DUC PRESTON DO Ot 562. 10 07/18/2015 DUC PRESTON DO Ot V76. 51 04/23/2016 TEJAS ROJAS HIGH LEAD YARDER Ot V70.0 ROUTINE MEDICAL EXAM 04/23/2016 TEJAS ROJAS HIGH LEAD YARDER Ot V76.12 OTH SCREEN MAMMO-MALIGN NEOPLASM OF [place] 04/23/2016 PRESTON DO, DUC D Ot 211. 3 BENIGN NEOPLASM LG BOWEL 04/23/2016 PRESTON DO, DUC D Ot 562. 10 DIVERTICULOSIS COLON (W/O MENT OF HEMORR 04/23/2016 PRESTON DO, DUC D Ot V76. 51 SCREEN MAL NEOP-COLON 04/23/2016 PRESTON DO, DUC D Ot V72. 84 EXAM PRE-OPERATIVE NOS 04/24/2016 FAUZIA ACOSAT HIGH LEAD YARDER Ot M19.042 PRIMARY OSTEOARTHRITIS, LEFT HAND 06/12/2016 TINO LUNDBERG, MARBIN Taylor Ot Z12.31 ENCNTR SCREEN MAMMOGRAM FOR MALIGNANT NE 07/25/2016 TEJAS ROJAS APRN Ot V70.0 ROUTINE MEDICAL EXAM 07/25/2016 TEJAS ROJAS HIGH LEAD YARDER Ot V76.12 OTH SCREEN MAMMO-MALIGN NEOPLASM OF [place] 07/25/2016 PRESTON DO, DUC D Ot 211. 3 BENIGN NEOPLASM LG BOWEL 07/25/2016 PRESTON , DUC D Ot 562. 10 DIVERTICULOSIS COLON (W/O MENT OF HEMORR 07/25/2016 PRESTON DO DUC D Ot V76. 51 SCREEN MAL NEOP-COLON 07/25/2016 SOUTH ENGLISH , DUC D Ot V72. 84 EXAM PRE-OPERATIVE NOS 07/25/2016 FAUZIA ACOSTA APRN Ot M19.042 PRIMARY OSTEOARTHRITIS, LEFT HAND 07/25/2016 TINO LUNDBERG, MARBIN Taylor Ot Z12.31 ENCNTR SCREEN MAMMOGRAM FOR MALIGNANT NE 07/28/2016 NAHEED CLARK RAND CEMENTER Ot R05 COUGH 07/28/2016 NAHEED CLARK Ot R06.00 DYSPNEA, UNSPECIFIED 08/15/2016 LIDIA CELETSE DO Ot J30. 9 ALLERGIC RHINITIS, UNSPECIFIED 08/15/2016 LIDIA CELESTE DO Ot K80. 20 CALCULUS OF GALLBLADDER W/O CHOLECYSTITI 08/15/2016 LIDIA CELESTE DO Ot R06. 00 DYSPNEA, UNSPECIFIED 08/15/2016 LIDIA CELESTE DO Ot R59. 0 LOCALIZED ENLARGED LYMPH NODES 08/15/2016 LIDIA CELESTE DO Ot J30. 9 ALLERGIC RHINITIS, UNSPECIFIED 08/15/2016 LIDIA CELESTE DO Ot K80. 20 CALCULUS OF GALLBLADDER W/O CHOLECYSTITI 08/15/2016 LIDIA CELESTE DO Ot R06. 00 DYSPNEA, UNSPECIFIED 08/15/2016 LIDIA CELESTE DO Ot R59. 0 LOCALIZED ENLARGED LYMPH NODES 08/21/2016 JUSTO PEÑA HIGH LEAD YARDER Ot R06.00 DYSPNEA, UNSPECIFIED 08/21/2016 JUSTO PEÑA HIGH LEAD YARDER Ot R09.02 HYPOXEMIA 08/21/2016 JUSTO PEÑA HIGH LEAD YARDER Ot R06.00 DYSPNEA, UNSPECIFIED 08/21/2016 JUSTO PEÑA HIGH LEAD YARDER Ot R09.02 HYPOXEMIA 08/25/2016 LIDIA CELESTE DO Ot J30. 9 ALLERGIC RHINITIS, UNSPECIFIED 08/25/2016 LIDIA CELESTE DO Ot R06. 00 DYSPNEA, UNSPECIFIED 08/25/2016 LIDIA CELESTE DO Ot Z01.818 ENCOUNTER FOR OTHER PREPROCEDURAL EXAMIN 08/26/2016 LIDIA CELESTE DO Ot J30. 9 ALLERGIC RHINITIS, UNSPECIFIED 08/26/2016 LIDIA CELESTE DO Ot R06. 00 DYSPNEA, UNSPECIFIED 08/26/2016 LIDIA CELESTE DO Ot Z01.818 ENCOUNTER FOR OTHER PREPROCEDURAL EXAMIN 08/26/2016 LIDIA CELESTE DO Ot J30. 9 ALLERGIC RHINITIS, UNSPECIFIED 08/26/2016 LIDIA CELESTE DO Ot R06. 00 DYSPNEA, UNSPECIFIED 08/27/2016 LIDIA CELESTE DO Ot R06. 00 DYSPNEA, UNSPECIFIED 08/27/2016 LIDIA CELESTE DO Ot J84. 9 INTERSTITIAL PULMONARY DISEASE, UNSPECIF 08/28/2016 LIDIA CELESTE DO Ot J30. 9 ALLERGIC RHINITIS, UNSPECIFIED 08/28/2016 LIDIA CELESTE DO Ot R06. 00 DYSPNEA, UNSPECIFIED 08/28/2016 LIDIA CELESTE DO Ot J84. 9 INTERSTITIAL PULMONARY DISEASE, UNSPECIF 09/02/2016 LIDIA CELESTE DO Ot J84. 9 INTERSTITIAL PULMONARY DISEASE, UNSPECIF 09/04/2016 TEJAS ROJAS APRN Ot V70.0 ROUTINE MEDICAL EXAM 09/04/2016 TEJAS ROJAS APRN Ot V76.12 OTH SCREEN MAMMO-MALIGN NEOPLASM OF [place] 09/04/2016 DUC PRESTON DO Ot 211. 3 BENIGN NEOPLASM LG BOWEL 09/04/2016 DUC PRESTON DO Ot 562. 10 DIVERTICULOSIS COLON (W/O MENT OF HEMORR 09/04/2016 DUC PRESTON DO Ot V76. 51 SCREEN MAL NEOP-COLON 09/04/2016 DUC PRESTON DO Ot V72. 84 EXAM PRE-OPERATIVE NOS 09/04/2016 FAUZIA ACOSTA HIGH LEAD YARDER Ot M19.042 PRIMARY OSTEOARTHRITIS, LEFT HAND 09/04/2016 TINO LUNDBERG, MARBIN Taylor Ot Z12.31 ENCNTR SCREEN MAMMOGRAM FOR MALIGNANT NE 09/04/2016 NAHEED CLARK RAND CEMENTER Ot R05 COUGH 09/04/2016 NAHEED CLARKP Ot R06.00 DYSPNEA, UNSPECIFIED 09/04/2016 LIDIA CELESTE DO Ot J30. 9 ALLERGIC RHINITIS, UNSPECIFIED 09/04/2016 LIDIA CELESTE DO Ot K80. 20 CALCULUS OF GALLBLADDER W/O CHOLECYSTITI 09/04/2016 LIDIA CELESTE DO Ot R06. 00 DYSPNEA, UNSPECIFIED 09/04/2016 LIDIA CELESTE DO Ot R59. 0 LOCALIZED ENLARGED LYMPH NODES 09/04/2016 JUSTO PEÑA APRN Ot R06.00 DYSPNEA, UNSPECIFIED 09/04/2016 JUSTO PEÑA APRN Ot R09.02 HYPOXEMIA 09/04/2016 LIDIA CELESTE DO Ot J30. 9 ALLERGIC RHINITIS, UNSPECIFIED 09/04/2016 LIDIA CELESTE DO Ot R06. 00 DYSPNEA, UNSPECIFIED 09/05/2016 ETJAS ROJAS APRN Ot V70.0 ROUTINE MEDICAL EXAM 09/05/2016 TEJAS ROJAS APRN Ot V76.12 OTH SCREEN MAMMO-MALIGN NEOPLASM OF [place] 09/05/2016 DUC PRESTON DO Ot 211. 3 BENIGN NEOPLASM LG BOWEL 09/05/2016 DUC PRESTON DO Ot 562. 10 DIVERTICULOSIS COLON (W/O MENT OF HEMORR 09/05/2016 DUC PRESTON DO Ot V76. 51 SCREEN MAL NEOP-COLON 09/05/2016 DUC PRESTON DO Ot V72. 84 EXAM PRE-OPERATIVE NOS 09/05/2016 FAUZIA ACOSTA APRN Ot M19.042 PRIMARY OSTEOARTHRITIS, LEFT HAND 09/05/2016 TINO LUNDBERG, MARBIN Taylor Ot Z12.31 ENCNTR SCREEN MAMMOGRAM FOR MALIGNANT NE 09/05/2016 NAHEED CLARK Ot R05 COUGH 09/05/2016 NAHEED CLARK Ot R06.00 DYSPNEA, UNSPECIFIED 09/05/2016 LIDIA CELESTE DO Ot J30. 9 ALLERGIC RHINITIS, UNSPECIFIED 09/05/2016 LIDIA CELESTE DO Ot K80. 20 CALCULUS OF GALLBLADDER W/O CHOLECYSTITI 09/05/2016 LIDIA CELESTE DO Ot R06. 00 DYSPNEA, UNSPECIFIED 09/05/2016 LIDIA CELESTE DO Ot R59. 0 LOCALIZED ENLARGED LYMPH NODES 09/05/2016 JUSTO PEÑA APRN Ot R06.00 DYSPNEA, UNSPECIFIED 09/05/2016 JUSTO PEÑA APRN Ot R09.02 HYPOXEMIA 09/05/2016 LIDIA CELESTE DO Ot J30. 9 ALLERGIC RHINITIS, UNSPECIFIED 09/05/2016 LIDIA CELESTE DO Ot R06. 00 DYSPNEA, UNSPECIFIED 09/05/2016 LIDIA CELESTE DO Ot J84. 9 INTERSTITIAL PULMONARY DISEASE, UNSPECIF 09/08/2016 NAHEED CLARK Ot R05 COUGH 09/08/2016 NAHEED CLARK Ot R06.00 DYSPNEA, UNSPECIFIED 09/08/2016 JUSTO PEÑA APRN Ot R06.00 DYSPNEA, UNSPECIFIED 09/08/2016 JUSTO PEÑA APRN Ot R09.02 HYPOXEMIA 09/11/2016 TEJAS ROJAS APRN Ot V70.0 ROUTINE MEDICAL EXAM 09/11/2016 TEJAS ROJAS APRN Ot V76.12 OTH SCREEN MAMMO-MALIGN NEOPLASM OF [place] 09/11/2016 DUC PRESTON DO Ot 211. 3 BENIGN NEOPLASM LG BOWEL 09/11/2016 DUC PRESTON DO Ot 562. 10 DIVERTICULOSIS COLON (W/O MENT OF HEMORR 09/11/2016 DUC PRESTON DO Ot V76. 51 SCREEN MAL NEOP-COLON 09/11/2016 DUC PRESTON DO Ot V72. 84 EXAM PRE-OPERATIVE NOS 09/11/2016 FAUZIA ACOSTA HIGH LEAD YARDER Ot M19.042 PRIMARY OSTEOARTHRITIS, LEFT HAND 09/11/2016 TINO LUNDBERG, MARBIN Taylor Ot Z12.31 ENCNTR SCREEN MAMMOGRAM FOR MALIGNANT NE 09/11/2016 NAHEED CLARKP Ot R05 COUGH 09/11/2016 NAHEED CLARKP Ot R06.00 DYSPNEA, UNSPECIFIED 09/11/2016 LIDIA CELESTE DO Ot J30. 9 ALLERGIC RHINITIS, UNSPECIFIED 09/11/2016 LIDIA CELESTE DO Ot K80. 20 CALCULUS OF GALLBLADDER W/O CHOLECYSTITI 09/11/2016 LIDIA CELESTE DO Ot R06. 00 DYSPNEA, UNSPECIFIED 09/11/2016 LIDIA CELESTE DO Ot R59. 0 LOCALIZED ENLARGED LYMPH NODES 09/11/2016 JUSTO PEÑA APRN Ot R06.00 DYSPNEA, UNSPECIFIED 09/11/2016 JUSTO PEÑA APRN Ot R09.02 HYPOXEMIA 09/11/2016 LIDIA CELESTE DO Ot J30. 9 ALLERGIC RHINITIS, UNSPECIFIED 09/11/2016 LIDIA CELESTE DO Ot R06. 00 DYSPNEA, UNSPECIFIED 09/11/2016 LIDIA CELESTE DO Ot J84. 9 INTERSTITIAL PULMONARY DISEASE, UNSPECIF 09/11/2016 LIDIA CELESTE DO Ot J30. 9 ALLERGIC RHINITIS, UNSPECIFIED 09/11/2016 LIDIA CELESTE DO Ot K80. 20 CALCULUS OF GALLBLADDER W/O CHOLECYSTITI 09/11/2016 LIDIA CELESTE DO Ot R06. 00 DYSPNEA, UNSPECIFIED 09/11/2016 LIDIA CELESTE DO Ot R59. 0 LOCALIZED ENLARGED LYMPH NODES 09/11/2016 LIDIA CELESTE DO Ot J30. 9 ALLERGIC RHINITIS, UNSPECIFIED 09/11/2016 LIDIA CELESTE DO Ot R06. 00 DYSPNEA, UNSPECIFIED 09/12/2016 NAHEED CLARKP Ot G47.10 HYPERSOMNIA, UNSPECIFIED 09/12/2016 CLARK, NAHEED M RAND CEMENTER Ot I10 ESSENTIAL (PRIMARY) HYPERTENSION 09/12/2016 NAHEED CLARK RAND CEMENTER Ot G47.10 HYPERSOMNIA, UNSPECIFIED 09/12/2016 NAHEED CLARK RAND CEMENTER Ot I10 ESSENTIAL (PRIMARY) HYPERTENSION 09/13/2016 NAHEED CLARK RAND CEMENTER Ot G47.10 HYPERSOMNIA, UNSPECIFIED 09/13/2016 NAHEED CLARK RAND CEMENTER Ot I10 ESSENTIAL (PRIMARY) HYPERTENSION 09/24/2016 LIDIA CELESTE DO Ot J84. 9 INTERSTITIAL PULMONARY DISEASE, UNSPECIF 10/09/2016 MARIANABELINDAJUSTO E HIGH LEAD YARDER Ot J98.4 OTHER DISORDERS OF LUNG 10/10/2016 MARIANABELINDAJUSTO E HIGH LEAD YARDER Ot J98.4 OTHER DISORDERS OF LUNG 10/10/2016 MARIANABELINDAJUSTO E HIGH LEAD YARDER Ot R06.00 DYSPNEA, UNSPECIFIED 10/10/2016 MARIANABELNIDAJUSTO E HIGH LEAD YARDER Ot R09.02 HYPOXEMIA 10/16/2016 MARIANABELINDAJUSTO E HIGH LEAD YARDER Ot J98.4 OTHER DISORDERS OF LUNG 10/16/2016 MARIANABELINDAJUSTO E HIGH LEAD YARDER Ot R06.00 DYSPNEA, UNSPECIFIED 10/16/2016 MARIANA, JUSTO E HIGH LEAD YARDER Ot R09.02 HYPOXEMIA 10/17/2016 MARIANA, JUSTO E HIGH LEAD YARDER Ot J98.4 OTHER DISORDERS OF LUNG 10/17/2016 MARIANA, JUSTO E HIGH LEAD YARDER Ot R06.00 DYSPNEA, UNSPECIFIED 10/17/2016 MARIANABELINDAJUSTO E HIGH LEAD YARDER Ot R09.02 HYPOXEMIA 10/21/2016 MARIANABELINDA VILLAINE E HIGH LEAD YARDER Ot J98.4 OTHER DISORDERS OF LUNG 10/21/2016 MARIANABELINDAJUSTO E HIGH LEAD YARDER Ot R06.00 DYSPNEA, UNSPECIFIED 10/21/2016 MARIANA JUSTO E HIGH LEAD YARDER Ot R09.02 HYPOXEMIA 10/23/2016 MARIANA JUSTO E HIGH LEAD YARDER Ot J98.4 OTHER DISORDERS OF LUNG 10/23/2016 MARIANABELINDAJUSTO E HIGH LEAD YARDER Ot R06.00 DYSPNEA, UNSPECIFIED 10/23/2016 MARIANABELINDAJUSTO E HIGH LEAD YARDER Ot R09.02 HYPOXEMIA 11/04/2016 MARIANA, JUSTO E HIGH LEAD YARDER Ot J98.4 OTHER DISORDERS OF LUNG 11/04/2016 MARIANABELINDAJUSTO E HIGH LEAD YARDER Ot R06.00 DYSPNEA, UNSPECIFIED 11/04/2016 JUSTO PEÑA HIGH LEAD YARDER Ot R09.02 HYPOXEMIA 11/19/2016 JUSTO PEÑA HIGH LEAD YARDER Ot J98.4 OTHER DISORDERS OF LUNG 11/19/2016 JUSTO PEÑA HIGH LEAD YARDER Ot R06.00 DYSPNEA, UNSPECIFIED 11/19/2016 JUSTO PEÑA HIGH LEAD YARDER Ot R09.02 HYPOXEMIA 2016 JUSTO PEÑA HIGH LEAD YARDER Ot J98.4 OTHER DISORDERS OF LUNG 2016 JUSTO PEÑA HIGH LEAD YARDER Ot R06.00 DYSPNEA, UNSPECIFIED 2016 JUSTO PEÑA HIGH LEAD YARDER Ot R09.02 HYPOXEMIA 01/18/2017 JUSTO PEÑA HIGH LEAD YARDER Ot J98.4 OTHER DISORDERS OF LUNG 01/18/2017 JUSTO PEÑA HIGH LEAD YARDER Ot R06.00 DYSPNEA, UNSPECIFIED 01/18/2017 JUSTO PEÑA HIGH LEAD YARDER Ot R09.02 HYPOXEMIA 01/20/2017 JUSTO PEÑA HIGH LEAD YARDER Ot J98.4 OTHER DISORDERS OF LUNG 01/20/2017 JUSTO PEÑA HIGH LEAD YARDER Ot R06.00 DYSPNEA, UNSPECIFIED 01/20/2017 JUSTO PEÑA HIGH LEAD YARDER Ot R09.02 HYPOXEMIA 05/25/2017 JUSTO PEÑA HIGH LEAD YARDER Ot J06.9 ACUTE UPPER RESPIRATORY INFECTION, UNSPE 05/25/2017 JUSTO PEÑA HIGH LEAD YARDER Ot Z86.19 PERSONAL HISTORY OF OTHER INFECTIOUS AND 06/27/2017 JUSTO PEÑA HIGH LEAD YARDER Ot J06.9 ACUTE UPPER RESPIRATORY INFECTION, UNSPE 06/27/2017 JUSTO PEÑA HIGH LEAD YARDER Ot Z86.19 PERSONAL HISTORY OF OTHER INFECTIOUS AND 07/30/2017 JUSTO PEÑA HIGH LEAD YARDER Ot I25.10 ATHSCL HEART DISEASE OF [place] CORONARY 07/30/2017 JUSTO PEÑA HIGH LEAD YARDER Ot J44.9 CHRONIC OBSTRUCTIVE PULMONARY DISEASE, U 07/30/2017 JUSTO PEÑA HIGH LEAD YARDER Ot K80.20 CALCULUS OF GALLBLADDER W/O CHOLECYSTITI 08/01/2017 JUSTO PEÑA HIGH LEAD YARDER Ot J06.9 ACUTE UPPER RESPIRATORY INFECTION, UNSPE 08/01/2017 JUSTO PEÑA HIGH LEAD YARDER Ot Z86.19 PERSONAL HISTORY OF OTHER INFECTIOUS AND 01/18/2018 TEJAS ROJAS APRN Ot V70.0 ROUTINE MEDICAL EXAM 01/18/2018 TEJAS ROJAS APRN Ot V76.12 OTH SCREEN MAMMO-MALIGN NEOPLASM OF ABBIE 01/18/2018 DUC PRESTON DO Ot 211. 3 BENIGN NEOPLASM LG BOWEL 01/18/2018 PRESTON DUC RODRIGUEZ Ot 562. 10 DIVERTICULOSIS COLON (W/O MENT OF HEMORR 01/18/2018 DUC PRESTON DO Ot V76. 51 SCREEN MAL NEOP-COLON 01/18/2018 PRESTON DUC RODRIGUEZ Ot V72. 84 EXAM PRE-OPERATIVE NOS 01/18/2018 FAUZIA ACOSTA APRN Ot M19.042 PRIMARY OSTEOARTHRITIS, LEFT HAND 01/18/2018 TINO LUNDBERG, MARBIN Taylor Ot Z12.31 ENCNTR SCREEN MAMMOGRAM FOR MALIGNANT NE 01/18/2018 NAHEED CLARK RAND CEMENTER Ot R05 COUGH 01/18/2018 NAHEED CLARKP Ot R06.00 DYSPNEA, UNSPECIFIED 01/18/2018 LIDIA CELESTE DO Ot J30. 9 ALLERGIC RHINITIS, UNSPECIFIED 01/18/2018 LIDIA CELESTE DO Ot K80. 20 CALCULUS OF GALLBLADDER W/O CHOLECYSTITI 01/18/2018 LIDIA CELESTE DO Ot R06. 00 DYSPNEA, UNSPECIFIED 01/18/2018 LIDIA CELESTE DO Ot R59. 0 LOCALIZED ENLARGED LYMPH NODES 01/18/2018 JUSTO PEÑA APRN Ot R06.00 DYSPNEA, UNSPECIFIED 01/18/2018 JUSTO PEÑA APRN Ot R09.02 HYPOXEMIA 01/18/2018 LIDIA CELESTE DO Ot J30. 9 ALLERGIC RHINITIS, UNSPECIFIED 01/18/2018 LIDIA CELESTE DO Ot R06. 00 DYSPNEA, UNSPECIFIED 01/18/2018 LIDIA CELESTE DO Ot J84. 9 INTERSTITIAL PULMONARY DISEASE, UNSPECIF 01/18/2018 JUSTO PEÑA APRN Ot J98.4 OTHER DISORDERS OF LUNG 01/18/2018 JUSTO PEÑA APRN Ot R06.00 DYSPNEA, UNSPECIFIED 01/18/2018 JUSTO PEÑA APRN Ot R09.02 HYPOXEMIA 01/18/2018 JUSTO PEÑA APRN Ot J98.4 OTHER DISORDERS OF LUNG 01/18/2018 JUSTO PEÑA HIGH LEAD YARDER Ot R06.00 DYSPNEA, UNSPECIFIED 01/18/2018 JUSTO PEÑA HIGH LEAD YARDER Ot R09.02 HYPOXEMIA 01/18/2018 JUSTO PEÑA HIGH LEAD YARDER Ot J98.4 OTHER DISORDERS OF LUNG 01/18/2018 JUSTO PEÑA HIGH LEAD YARDER Ot R06.00 DYSPNEA, UNSPECIFIED 01/18/2018 JUSTO PEÑA HIGH LEAD YARDER Ot R09.02 HYPOXEMIA 01/18/2018 JUSTO PEÑA HIGH LEAD YARDER Ot I25.10 ATHSCL HEART DISEASE OF [place] CORONARY 01/18/2018 JUSTO PEÑA HIGH LEAD YARDER Ot J44.9 CHRONIC OBSTRUCTIVE PULMONARY DISEASE, U 01/18/2018 JUSTO PEÑA APRN Ot K80.20 CALCULUS OF GALLBLADDER W/O CHOLECYSTITI 01/18/2018 JUSTO PEÑA HIGH LEAD YARDER Ot J06.9 ACUTE UPPER RESPIRATORY INFECTION, UNSPE 01/18/2018 JUSTO PEÑA HIGH LEAD YARDER Ot Z86.19 PERSONAL HISTORY OF OTHER INFECTIOUS AND 01/19/2018 JUSTO PEÑA HIGH LEAD YARDER Ot F17.201 NICOTINE DEPENDENCE, UNSPECIFIED, IN REM 01/19/2018 JUSTO PEÑA HIGH LEAD YARDER Ot J30.9 ALLERGIC RHINITIS, UNSPECIFIED 01/19/2018 JUSTO PEÑA HIGH LEAD YARDER Ot R09.02 HYPOXEMIA 01/19/2018 JUSTO PEÑA HIGH LEAD YARDER Ot R91.8 OTHER NONSPECIFIC ABNORMAL FINDING OF SOPHIA 01/19/2018 JUSTO PEÑA HIGH LEAD YARDER Ot Z86.19 PERSONAL HISTORY OF OTHER INFECTIOUS AND 01/19/2018 JUSTO PEÑA HIGH LEAD YARDER Ot F17.201 NICOTINE DEPENDENCE, UNSPECIFIED, IN REM 01/19/2018 JUSTO PEÑA HIGH LEAD YARDER Ot J30.9 ALLERGIC RHINITIS, UNSPECIFIED 01/19/2018 JUSTO PEÑA HIGH LEAD YARDER Ot R09.02 HYPOXEMIA 01/19/2018 JUSTO PEÑA HIGH LEAD YARDER Ot R91.8 OTHER NONSPECIFIC ABNORMAL FINDING OF SOPHIA 01/19/2018 JUSTO PEÑA HIGH LEAD YARDER Ot Z86.19 PERSONAL HISTORY OF OTHER INFECTIOUS AND 02/10/2018 JUSTO PEÑA HIGH LEAD YARDER Ot F17.201 NICOTINE DEPENDENCE, UNSPECIFIED, IN REM 02/10/2018 JUSTO PEÑA APRN Ot J30.9 ALLERGIC RHINITIS, UNSPECIFIED 02/10/2018 JUSTO PEÑA APRN Ot R09.02 HYPOXEMIA 02/10/2018 JUSTO PEÑA APRN Ot R91.8 OTHER NONSPECIFIC ABNORMAL FINDING OF SOPHIA 02/10/2018 JUSTO PEÑA APRN Ot Z86.19 PERSONAL HISTORY OF OTHER INFECTIOUS AND 05/26/2018 TEJAS ROJAS APRN Ot V70.0 ROUTINE MEDICAL EXAM 05/26/2018 TEJAS ROJAS APRN Ot V76.12 OTH SCREEN MAMMO-MALIGN NEOPLASM OF [place] 05/26/2018 DUC PRESTON DO Ot 211. 3 BENIGN NEOPLASM LG BOWEL 05/26/2018 DUC PRESTON DO Ot 562. 10 DIVERTICULOSIS COLON (W/O MENT OF HEMORR 05/26/2018 DUC PRESTON DO Ot V76. 51 SCREEN MAL NEOP-COLON 05/26/2018 DUC PRESTON DO Ot V72. 84 EXAM PRE-OPERATIVE NOS 05/26/2018 FAUZIA ACOSTA APRN Ot M19.042 PRIMARY OSTEOARTHRITIS, LEFT HAND 05/26/2018 TINO LUNDBERG, MARBIN Taylor Ot Z12.31 ENCNTR SCREEN MAMMOGRAM FOR MALIGNANT NE 05/26/2018 NAHEED CLARK Ot R05 COUGH 05/26/2018 NAHEED CLARK Ot R06.00 DYSPNEA, UNSPECIFIED 05/26/2018 LIDIA CELESTE DO Ot J30. 9 ALLERGIC RHINITIS, UNSPECIFIED 05/26/2018 LIDIA CELESTE DO Ot K80. 20 CALCULUS OF GALLBLADDER W/O CHOLECYSTITI 05/26/2018 LIDIA CELESTE DO Ot R06. 00 DYSPNEA, UNSPECIFIED 05/26/2018 LIDIA CELESTE DO Ot R59. 0 LOCALIZED ENLARGED LYMPH NODES 05/26/2018 JUSTO PEÑA APRN Ot R06.00 DYSPNEA, UNSPECIFIED 05/26/2018 JUSTO PEÑA APRN Ot R09.02 HYPOXEMIA 05/26/2018 LIDIA CELESTE DO Ot J30. 9 ALLERGIC RHINITIS, UNSPECIFIED 05/26/2018 LIDIA CELESTE DO, Ot R06. 00 DYSPNEA, UNSPECIFIED 05/26/2018 LIDIA CELESTE DO Ot J84. 9 INTERSTITIAL PULMONARY DISEASE, UNSPECIF 05/26/2018 JUSTO PEÑA HIGH LEAD YARDER Ot J98.4 OTHER DISORDERS OF LUNG 05/26/2018 JUSTO PEÑA HIGH LEAD YARDER Ot R06.00 DYSPNEA, UNSPECIFIED 05/26/2018 JUSTO PEÑA HIGH LEAD YARDER Ot R09.02 HYPOXEMIA 05/26/2018 JUSTO PEÑA HIGH LEAD YARDER Ot J98.4 OTHER DISORDERS OF LUNG 05/26/2018 JUSTO PEÑA APRN Ot R06.00 DYSPNEA, UNSPECIFIED 05/26/2018 JUSTO PEÑA HIGH LEAD YARDER Ot R09.02 HYPOXEMIA 05/26/2018 JUSTO PEÑA APRN Ot J98.4 OTHER DISORDERS OF LUNG 05/26/2018 JUSTO PEÑA APRN Ot R06.00 DYSPNEA, UNSPECIFIED 05/26/2018 JUSTO PEÑA APRN Ot R09.02 HYPOXEMIA 05/26/2018 JUSTO PEÑA APRN Ot I25.10 ATHSCL HEART DISEASE OF [place] CORONARY 05/26/2018 JUSTO PEÑA HIGH LEAD YARDER Ot J44.9 CHRONIC OBSTRUCTIVE PULMONARY DISEASE, U 05/26/2018 JUSTO PEÑA HIGH LEAD YARDER Ot K80.20 CALCULUS OF GALLBLADDER W/O CHOLECYSTITI 05/26/2018 JUSTO PEÑA APRN Ot J06.9 ACUTE UPPER RESPIRATORY INFECTION, UNSPE 05/26/2018 JUSTO PEÑA APRN Ot Z86.19 PERSONAL HISTORY OF OTHER INFECTIOUS AND 05/26/2018 JUSTO PEÑA HIGH LEAD YARDER Ot F17.201 NICOTINE DEPENDENCE, UNSPECIFIED, IN REM 05/26/2018 JUSTO PEÑA HIGH LEAD YARDER Ot J30.9 ALLERGIC RHINITIS, UNSPECIFIED 05/26/2018 JUSTO PEÑA APRN Ot R09.02 HYPOXEMIA 05/26/2018 JUSTO PEÑA APRN Ot R91.8 OTHER NONSPECIFIC ABNORMAL FINDING OF SOPHIA 05/26/2018 JUSTO PEÑA HIGH LEAD YARDER Ot Z86.19 PERSONAL HISTORY OF OTHER INFECTIOUS AND 05/31/2018 ABILIO LUNDBERG, SANDRINE Luciano Ot Z47.1 AFTERCARE FOLLOWING JOINT REPLACEMENT ZUNIGA 05/31/2018 SANDRINE KNOX MD Ot Z96.6 92 FINGER-JOINT REPLACEMENT OF LEFT HAND 06/24/2018 SANDRINE KNOX MD Ot Z47.1 AFTERCARE FOLLOWING JOINT REPLACEMENT ZUNIGA 06/24/2018 SANDRINE KNOX MD Ot Z96.6 92 FINGER-JOINT REPLACEMENT OF LEFT HAND 08/02/2018 SANDRINE KNOX MD Ot Z47.1 AFTERCARE FOLLOWING JOINT REPLACEMENT ZUNIGA 08/02/2018 SANDRINE KNOX MD Ot Z96.6 92 FINGER-JOINT REPLACEMENT OF LEFT HAND 08/02/2018 SANDRINE KNOX MD Ot Z47.1 AFTERCARE FOLLOWING JOINT REPLACEMENT ZUNIGA 08/02/2018 SANDRINE KNOX MD Ot Z96.6 92 FINGER-JOINT REPLACEMENT OF LEFT HAND 09/08/2018 SANDRINE KNOX MD Ot Z47.1 AFTERCARE FOLLOWING JOINT REPLACEMENT ZUNIGA 09/08/2018 SANDRINE KNOX MD Ot Z96.6 92 FINGER-JOINT REPLACEMENT OF LEFT HAND 09/16/2018 SANDRINE NKOX MD Ot Z47.1 AFTERCARE FOLLOWING JOINT REPLACEMENT ZUNIGA 09/16/2018 SANDRINE KNOX MD Ot Z96.6 92 FINGER-JOINT REPLACEMENT OF LEFT HAND 02/25/2019 NAHEED CLARK Ot Z12.31 ENCNTR SCREEN MAMMOGRAM FOR MALIGNANT NE 03/02/2019 NAHEED CLARK RAND CEMENTER Ot Z12.31 ENCNTR SCREEN MAMMOGRAM FOR MALIGNANT NE 03/14/2019 TEJAS ROJAS APRN Ot V70.0 ROUTINE MEDICAL EXAM 03/14/2019 TEJAS ROJAS APRN Ot V76.12 OTH SCREEN MAMMO-MALIGN NEOPLASM OF ABBIE 03/14/2019 DUC PRESTON DO Ot 211. 3 BENIGN NEOPLASM LG BOWEL 03/14/2019 DUC PRESTON DO Ot 562. 10 DIVERTICULOSIS COLON (W/O MENT OF HEMORR 03/14/2019 DUC PRESTON DO Ot V76. 51 SCREEN MAL NEOP-COLON 03/14/2019 DUC PRESTON DO Ot V72. 84 EXAM PRE-OPERATIVE NOS 03/14/2019 FAUZIA ACOSTA HIGH LEAD YARDER Ot M19.042 PRIMARY OSTEOARTHRITIS, LEFT HAND 03/14/2019 TINO LUNDBERG, MARBIN Taylor Ot Z12.31 ENCNTR SCREEN MAMMOGRAM FOR MALIGNANT NE 03/14/2019 NAHEED CLARK RAND CEMENTER Ot R05 COUGH 03/14/2019 NAHEED CLARK RAND CEMENTER Ot R06.00 DYSPNEA, UNSPECIFIED 03/14/2019 LIDIA CELESTE DO Ot J30. 9 ALLERGIC RHINITIS, UNSPECIFIED 03/14/2019 LIDIA CELESTE DO Ot K80. 20 CALCULUS OF GALLBLADDER W/O CHOLECYSTITI 03/14/2019 LIDIA CELESTE DO Ot R06. 00 DYSPNEA, UNSPECIFIED 03/14/2019 LIDIA CELESTE DO Ot R59. 0 LOCALIZED ENLARGED LYMPH NODES 03/14/2019 JUSTO PEÑA APRN Ot R06.00 DYSPNEA, UNSPECIFIED 03/14/2019 JUSTO PEÑA APRN Ot R09.02 HYPOXEMIA 03/14/2019 LIDIA CELESTE DO Ot J30. 9 ALLERGIC RHINITIS, UNSPECIFIED 03/14/2019 LIDIA CELESTE DO Ot R06. 00 DYSPNEA, UNSPECIFIED 03/14/2019 LIDIA CELESTE DO Ot J84. 9 INTERSTITIAL PULMONARY DISEASE, UNSPECIF 03/14/2019 JUSTO PEÑA APRN Ot J98.4 OTHER DISORDERS OF LUNG 03/14/2019 JUSTO PEÑA APRN Ot R06.00 DYSPNEA, UNSPECIFIED 03/14/2019 JUSTO PEÑA APRN Ot R09.02 HYPOXEMIA 03/14/2019 JUSTO PEÑA APRN Ot J98.4 OTHER DISORDERS OF LUNG 03/14/2019 JUSTO PEÑA APRN Ot R06.00 DYSPNEA, UNSPECIFIED 03/14/2019 JUSTO PEÑA APRN Ot R09.02 HYPOXEMIA 03/14/2019 JUSTO PEÑA APRN Ot J98.4 OTHER DISORDERS OF LUNG 03/14/2019 JUSTO PEÑA APRN Ot R06.00 DYSPNEA, UNSPECIFIED 03/14/2019 JUSTO PEÑA APRN Ot R09.02 HYPOXEMIA 03/14/2019 JUSTO PEÑA APRN Ot I25.10 ATHSCL HEART DISEASE OF [place] CORONARY 03/14/2019 JUSTO PEÑA APRN Ot J44.9 CHRONIC OBSTRUCTIVE PULMONARY DISEASE, U 03/14/2019 JUSTO PEÑA APRN Ot K80.20 CALCULUS OF GALLBLADDER W/O CHOLECYSTITI 03/14/2019 JUSTO PEÑA APRN Ot J06.9 ACUTE UPPER RESPIRATORY INFECTION, UNSPE 03/14/2019 MARIANA, JSUTO E HIGH LEAD YARDER Ot Z86.19 PERSONAL HISTORY OF OTHER INFECTIOUS AND 03/14/2019 JUSTO PEÑA HIGH LEAD YARDER Ot F17.201 NICOTINE DEPENDENCE, UNSPECIFIED, IN REM 03/14/2019 JUSTO PEAÑ HIGH LEAD YARDER Ot J30.9 ALLERGIC RHINITIS, UNSPECIFIED 03/14/2019 JUSTO PEÑA HIGH LEAD YARDER Ot R09.02 HYPOXEMIA 03/14/2019 JUSTO PEÑA HIGH LEAD YARDER Ot R91.8 OTHER NONSPECIFIC ABNORMAL FINDING OF SOPHIA 03/14/2019 JUSTO PEÑA HIGH LEAD YARDER Ot Z86.19 PERSONAL HISTORY OF OTHER INFECTIOUS AND 03/14/2019 NAHEED CLARK RAND CEMENTER Ot Z12.31 ENCNTR SCREEN MAMMOGRAM FOR MALIGNANT NE 03/14/2019 FAUZIA ACOSTA HIGH LEAD YARDER Ot N63.20 UNSPECIFIED LUMP IN THE LEFT BREAST, UNS 03/14/2019 FAUZIA ACOSTA HIGH LEAD YARDER Ot N63.20 UNSPECIFIED LUMP IN THE LEFT BREAST, UNS 03/29/2019 NAHEED CLARK RAND CEMENTER Ot Z12.31 ENCNTR SCREEN MAMMOGRAM FOR MALIGNANT NE 04/12/2019 FAUZIA ACOSTA HIGH LEAD YARDER Ot N60.02 SOLITARY CYST OF LEFT BREAST 04/12/2019 FAUZIA ACOSTA HIGH LEAD YARDER Ot N63.23 UNSPECIFIED LUMP IN THE LEFT BREAST, LOW 09/05/2019 JUSTO PEÑA HIGH LEAD YARDER Ot F17.201 NICOTINE DEPENDENCE, UNSPECIFIED, IN REM 09/05/2019 JUSTO PEÑA HIGH LEAD YARDER Ot J18.8 OTHER PNEUMONIA, UNSPECIFIED ORGANISM 09/05/2019 JUSTO PEÑA HIGH LEAD YARDER Ot J30.9 ALLERGIC RHINITIS, UNSPECIFIED 09/05/2019 JUSTO PEÑA HIGH LEAD YARDER Ot Z86.19 PERSONAL HISTORY OF OTHER INFECTIOUS AND 09/23/2019 JUSTO PEÑA HIGH LEAD YARDER Ot F17.201 NICOTINE DEPENDENCE, UNSPECIFIED, IN REM 09/23/2019 JUSTO PEÑA HIGH LEAD YARDER Ot G47.33 OBSTRUCTIVE SLEEP APNEA (ADULT) (PEDIATR 09/23/2019 JUSTO PEÑA HIGH LEAD YARDER Ot J18.8 OTHER PNEUMONIA, UNSPECIFIED ORGANISM 09/23/2019 JUSTO PEÑA HIGH LEAD YARDER Ot J84.9 INTERSTITIAL PULMONARY DISEASE, UNSPECIF 09/23/2019 JUSTO PEÑA HIGH LEAD YARDER Ot Z86.19 PERSONAL HISTORY OF OTHER INFECTIOUS AND 09/23/2019 TINO LUNDBERG, MARBIN Taylor Ot F32.9 MAJOR DEPRESSIVE DISORDER, SINGLE EPISOD 09/23/2019 MARBIN JIMÉNEZ MD Ot I1 0 ESSENTIAL (PRIMARY) HYPERTENSION 09/23/2019 MARBIN JIMÉNEZ MD Ot J18.9 PNEUMONIA, UNSPECIFIED ORGANISM 09/23/2019 MARBIN JIMÉNEZ MD Ot J30.2 OTHER SEASONAL ALLERGIC RHINITIS 09/23/2019 MARBIN JIMÉNEZ MD Ot J44.0 CHR OBSTRUCTIVE PULMON DISEASE WITH (ACU 09/23/2019 MARBIN JIMÉNEZ MD Ot J44.1 CHRONIC OBSTRUCTIVE PULMONARY DISEASE W 09/23/2019 MARBIN JIMÉNEZ MD Ot J84.9 INTERSTITIAL PULMONARY DISEASE, UNSPECIF 09/23/2019 MARBIN JIMÉNEZ MD Ot K21.9 GASTRO-ESOPHAGEAL REFLUX DISEASE WITHOUT 09/23/2019 MARBIN JIMÉNEZ MD Ot M19.91 PRIMARY OSTEOARTHRITIS, UNSPECIFIED SITE 09/23/2019 MARBIN JIMÉNEZ MD Ot M79.7 FIBROMYALGIA 09/23/2019 MARBIN JIMÉNEZ MD Ot Z87.891 PERSONAL HISTORY OF NICOTINE DEPENDENCE 09/23/2019 MARBIN JIMÉNEZ MD Ot Z99.81 DEPENDENCE ON SUPPLEMENTAL OXYGEN 09/24/2019 MARBIN JIMÉNEZ MD Ot F32.9 MAJOR DEPRESSIVE DISORDER, SINGLE EPISOD 09/24/2019 MARBIN JIMÉNEZ MD Ot I1 0 ESSENTIAL (PRIMARY) HYPERTENSION 09/24/2019 MARBIN JIMÉNEZ MD Ot J18.9 PNEUMONIA, UNSPECIFIED ORGANISM 09/24/2019 MARBIN JIMÉNEZ MD Ot J30.2 OTHER SEASONAL ALLERGIC RHINITIS 09/24/2019 MARBIN JIMÉNEZ MD Ot J44.0 CHR OBSTRUCTIVE PULMON DISEASE WITH (ACU 09/24/2019 MARBIN JIMÉNEZ MD Ot J44.1 CHRONIC OBSTRUCTIVE PULMONARY DISEASE W 09/24/2019 MARBIN JIMÉNEZ MD Ot J84.9 INTERSTITIAL PULMONARY DISEASE, UNSPECIF 09/24/2019 MARBIN JIMÉNEZ MD Ot K21.9 GASTRO-ESOPHAGEAL REFLUX DISEASE WITHOUT 09/24/2019 MARBIN JIMÉNEZ MD Ot M19.91 PRIMARY OSTEOARTHRITIS, UNSPECIFIED SITE 09/24/2019 MARBIN JIMÉNEZ MD Ot M79.7 FIBROMYALGIA 09/24/2019 MARBIN JIMÉNEZ MD Ot Z87.891 PERSONAL HISTORY OF NICOTINE DEPENDENCE 09/24/2019 MARBIN JIMÉNEZ MD Ot Z99.81 DEPENDENCE ON SUPPLEMENTAL OXYGEN 09/25/2019 JUSTO PEÑA APRN Ot J98.4 OTHER DISORDERS OF LUNG 09/25/2019 JUSTO PEÑA APRN Ot R06.00 DYSPNEA, UNSPECIFIED 09/25/2019 JUSTO PEÑA HIGH LEAD YARDER Ot R09.02 HYPOXEMIA 09/25/2019 JUSTO PEÑA APRN Ot J06.9 ACUTE UPPER RESPIRATORY INFECTION, UNSPE 09/25/2019 JUSTO PEÑA APRN Ot Z86.19 PERSONAL HISTORY OF OTHER INFECTIOUS AND 09/25/2019 MARBIN JIMÉNEZ MD Ot F32.9 MAJOR DEPRESSIVE DISORDER, SINGLE EPISOD 09/25/2019 MARBIN JIMÉNEZ MD Ot I1 0 ESSENTIAL (PRIMARY) HYPERTENSION 09/25/2019 MARBIN JIMÉNEZ MD, Ot J18.9 PNEUMONIA, UNSPECIFIED ORGANISM 09/25/2019 MARBIN JIMÉNEZ MD, Ot J30.2 OTHER SEASONAL ALLERGIC RHINITIS 09/25/2019 MARBIN JIMÉNEZ MD, Ot J44.0 CHR OBSTRUCTIVE PULMON DISEASE WITH (ACU 09/25/2019 MARBIN JIMÉNEZ MD, Ot J44.1 CHRONIC OBSTRUCTIVE PULMONARY DISEASE W 09/25/2019 MARBIN JIMÉNEZ MD, Ot J84.9 INTERSTITIAL PULMONARY DISEASE, UNSPECIF 09/25/2019 MARBIN JIMÉNEZ MD Ot K21.9 GASTRO-ESOPHAGEAL REFLUX DISEASE WITHOUT 09/25/2019 MARBIN JIMÉNEZ MD Ot M19.91 PRIMARY OSTEOARTHRITIS, UNSPECIFIED SITE 09/25/2019 MARBIN JIMÉNEZ MD Ot M79.7 FIBROMYALGIA 09/25/2019 MARBIN JIMÉNEZ MD, Ot Z87.891 PERSONAL HISTORY OF NICOTINE DEPENDENCE 09/25/2019 MARBIN JIMÉNEZ MD Ot Z99.81 DEPENDENCE ON SUPPLEMENTAL OXYGEN 09/25/2019 MARBIN JIMÉNEZ MD, Ot F32.9 MAJOR DEPRESSIVE DISORDER, SINGLE EPISOD 09/25/2019 MARBIN JIMÉNEZ MD Ot I1 0 ESSENTIAL (PRIMARY) HYPERTENSION 09/25/2019 MARBIN JIMÉNEZ MD, Ot J18.9 PNEUMONIA, UNSPECIFIED ORGANISM 09/25/2019 MARBIN JIMÉNEZ MD, Ot J30.2 OTHER SEASONAL ALLERGIC RHINITIS 09/25/2019 MARBIN JIMÉNEZ MD Ot J44.0 CHR OBSTRUCTIVE PULMON DISEASE WITH (ACU 09/25/2019 MARBIN JIMÉNEZ MD Ot J44.1 CHRONIC OBSTRUCTIVE PULMONARY DISEASE W 09/25/2019 MARBIN JIMÉNEZ MD Ot J84.9 INTERSTITIAL PULMONARY DISEASE, UNSPECIF 09/25/2019 MARBIN JIMÉNEZ MD Ot K21.9 GASTRO-ESOPHAGEAL REFLUX DISEASE WITHOUT 09/25/2019 MARBIN JIMÉNEZ MD Ot M19.91 PRIMARY OSTEOARTHRITIS, UNSPECIFIED SITE 09/25/2019 MARBIN JIMÉNEZ MD Ot M79.7 FIBROMYALGIA 09/25/2019 MARBIN JIMÉNEZ MD Ot Z87.891 PERSONAL HISTORY OF NICOTINE DEPENDENCE 09/25/2019 MARBIN JIMÉNEZ MD Ot Z99.81 DEPENDENCE ON SUPPLEMENTAL OXYGEN 09/26/2019 MARBIN JIMÉNEZ MD Ot F32.9 MAJOR DEPRESSIVE DISORDER, SINGLE EPISOD 09/26/2019 MARBIN JIMÉNEZ MD Ot I1 0 ESSENTIAL (PRIMARY) HYPERTENSION 09/26/2019 MARBIN JIMÉNEZ MD Ot J18.9 PNEUMONIA, UNSPECIFIED ORGANISM 09/26/2019 MARBIN JIMÉNEZ MD Ot J30.2 OTHER SEASONAL ALLERGIC RHINITIS 09/26/2019 MARBIN JIMÉNEZ MD Ot J44.0 CHR OBSTRUCTIVE PULMON DISEASE WITH (ACU 09/26/2019 MARBIN JIMÉNEZ MD Ot J44.1 CHRONIC OBSTRUCTIVE PULMONARY DISEASE W 09/26/2019 MARBIN JIMÉNEZ MD Ot J84.9 INTERSTITIAL PULMONARY DISEASE, UNSPECIF 09/26/2019 MARBIN JIMÉNEZ MD Ot K21.9 GASTRO-ESOPHAGEAL REFLUX DISEASE WITHOUT 09/26/2019 MARBIN JIMÉNEZ MD Ot M19.91 PRIMARY OSTEOARTHRITIS, UNSPECIFIED SITE 09/26/2019 MARBIN JIMÉNEZ MD Ot M79.7 FIBROMYALGIA 09/26/2019 MARBIN JIMÉNEZ MD Ot Z87.891 PERSONAL HISTORY OF NICOTINE DEPENDENCE 09/26/2019 MARBIN JIMÉNEZ MD Ot Z99.81 DEPENDENCE ON SUPPLEMENTAL OXYGEN 09/27/2019 MARBIN JIMÉNEZ MD Ot F32.9 MAJOR DEPRESSIVE DISORDER, SINGLE EPISOD 09/27/2019 MARBIN JIMÉNEZ MD Ot I1 0 ESSENTIAL (PRIMARY) HYPERTENSION 09/27/2019 MARBIN JIMÉNEZ MD Ot J18.9 PNEUMONIA, UNSPECIFIED ORGANISM 09/27/2019 MARBIN JIMÉNEZ MD Ot J30.2 OTHER SEASONAL ALLERGIC RHINITIS 09/27/2019 MARBIN JIMÉNEZ MD Ot J44.0 CHR OBSTRUCTIVE PULMON DISEASE WITH (ACU 09/27/2019 MARBIN JIMÉNEZ MD Ot J44.1 CHRONIC OBSTRUCTIVE PULMONARY DISEASE W 09/27/2019 MARBIN JIMÉNEZ MD Ot J84.9 INTERSTITIAL PULMONARY DISEASE, UNSPECIF 09/27/2019 MARBIN JIMÉNEZ MD Ot K21.9 GASTRO-ESOPHAGEAL REFLUX DISEASE WITHOUT 09/27/2019 MARBIN JIMÉNEZ MD Ot M19.91 PRIMARY OSTEOARTHRITIS, UNSPECIFIED SITE 09/27/2019 MARBIN JIMÉNEZ MD Ot M79.7 FIBROMYALGIA 09/27/2019 MARBIN JIMÉNEZ MD Ot Z87.891 PERSONAL HISTORY OF NICOTINE DEPENDENCE 09/27/2019 MARBIN JIMÉNEZ MD Ot Z99.81 DEPENDENCE ON SUPPLEMENTAL OXYGEN 09/27/2019 MARBIN JIMÉNEZ MD Ot F32.9 MAJOR DEPRESSIVE DISORDER, SINGLE EPISOD 09/27/2019 MARBIN JIMÉNEZ MD Ot I1 0 ESSENTIAL (PRIMARY) HYPERTENSION 09/27/2019 MARBIN JIMÉNEZ MD Ot J18.9 PNEUMONIA, UNSPECIFIED ORGANISM 09/27/2019 MARBIN JIMÉNEZ MD Ot J30.2 OTHER SEASONAL ALLERGIC RHINITIS 09/27/2019 MARBIN JIMÉNEZ MD Ot J44.0 CHR OBSTRUCTIVE PULMON DISEASE WITH (ACU 09/27/2019 MARBIN JIMÉNEZ MD Ot J44.1 CHRONIC OBSTRUCTIVE PULMONARY DISEASE W 09/27/2019 MARBIN JIMÉNEZ MD Ot J84.9 INTERSTITIAL PULMONARY DISEASE, UNSPECIF 09/27/2019 MARBIN JIMÉNEZ MD Ot K21.9 GASTRO-ESOPHAGEAL REFLUX DISEASE WITHOUT 09/27/2019 MARBIN JIMÉNEZ MD Ot M19.91 PRIMARY OSTEOARTHRITIS, UNSPECIFIED SITE 09/27/2019 MARBIN JIMÉNEZ MD Ot M79.7 FIBROMYALGIA 09/27/2019 MARBIN JIMÉNEZ MD Ot Z87.891 PERSONAL HISTORY OF NICOTINE DEPENDENCE 09/27/2019 MARBIN JIMÉNEZ MD Ot Z99.81 DEPENDENCE ON SUPPLEMENTAL OXYGEN 09/28/2019 JUSTO PEÑA APRN Ot F17.201 NICOTINE DEPENDENCE, UNSPECIFIED, IN REM 09/28/2019 MARIANA, JUSTO E HIGH LEAD YARDER Ot J18.8 OTHER PNEUMONIA, UNSPECIFIED ORGANISM 09/28/2019 MARIANA, JUSTO E HIGH LEAD YARDER Ot J30.9 ALLERGIC RHINITIS, UNSPECIFIED 09/28/2019 MARIANA, JUSTO E HIGH LEAD YARDER Ot Z86.19 PERSONAL HISTORY OF OTHER INFECTIOUS AND 11/22/2019 MARIANA, JUSTO E HIGH LEAD YARDER Ot G47.33 OBSTRUCTIVE SLEEP APNEA (ADULT) (PEDIATR 11/22/2019 MARIANA, JUSOT E HIGH LEAD YARDER Ot J18.8 OTHER PNEUMONIA, UNSPECIFIED ORGANISM 11/22/2019 MARIANA, JUSTO E HIGH LEAD YARDER Ot J30.9 ALLERGIC RHINITIS, UNSPECIFIED 11/22/2019 MARIANA, JUSTO E HIGH LEAD YARDER Ot R09.02 HYPOXEMIA 11/22/2019 MARIANA, JUSTO E HIGH LEAD YARDER Ot Z86.19 PERSONAL HISTORY OF OTHER INFECTIOUS AND 11/22/2019 MARIANA, JUSTO E HIGH LEAD YARDER Ot G47.33 OBSTRUCTIVE SLEEP APNEA (ADULT) (PEDIATR 11/22/2019 MARIANA, JUSTO E HIGH LEAD YARDER Ot J18.8 OTHER PNEUMONIA, UNSPECIFIED ORGANISM 11/22/2019 MARIANA, JUSTO E HIGH LEAD YARDER Ot J30.9 ALLERGIC RHINITIS, UNSPECIFIED 11/22/2019 MARIANA, JUSTO E HIGH LEAD YARDER Ot R09.02 HYPOXEMIA 11/22/2019 MARIANA, JUSTO E HIGH LEAD YARDER Ot Z86.19 PERSONAL HISTORY OF OTHER INFECTIOUS AND 11/24/2019 MARIANA, JUSTO E HIGH LEAD YARDER Ot G47.33 OBSTRUCTIVE SLEEP APNEA (ADULT) (PEDIATR 11/24/2019 MARIANA, JUSTO E HIGH LEAD YARDER Ot J18.8 OTHER PNEUMONIA, UNSPECIFIED ORGANISM 11/24/2019 MARIANA, JUSTO E HIGH LEAD YARDER Ot J30.9 ALLERGIC RHINITIS, UNSPECIFIED 11/24/2019 MARIANA, JUSTO E HIGH LEAD YARDER Ot R09.02 HYPOXEMIA 11/24/2019 MARIANA, JUSTO E HIGH LEAD YARDER Ot Z86.19 PERSONAL HISTORY OF OTHER INFECTIOUS AND 11/29/2019 MARIANA, JUSTO E HIGH LEAD YARDER Ot G47.33 OBSTRUCTIVE SLEEP APNEA (ADULT) (PEDIATR 11/29/2019 MARIANA, JUSTO E HIGH LEAD YARDER Ot J18.8 OTHER PNEUMONIA, UNSPECIFIED ORGANISM 11/29/2019 MARIANA, JUSTO E HIGH LEAD YARDER Ot J30.9 ALLERGIC RHINITIS, UNSPECIFIED 11/29/2019 MARIANA, JUSTO E HIGH LEAD YARDER Ot R09.02 HYPOXEMIA 11/29/2019 MARIANA, JUSTO E HIGH LEAD YARDER Ot Z86.19 PERSONAL HISTORY OF OTHER INFECTIOUS AND 12/06/2019 MARIANA, JUSTO E HIGH LEAD YARDER Ot G47.33 OBSTRUCTIVE SLEEP APNEA (ADULT) (PEDIATR 12/06/2019 MARIANA, JUSTO E HIGH LEAD YARDER Ot J18.8 OTHER PNEUMONIA, UNSPECIFIED ORGANISM 12/06/2019 MARIANA, JUSTO E HIGH LEAD YARDER Ot J30.9 ALLERGIC RHINITIS, UNSPECIFIED 12/06/2019 MARIANA, JUSTO E HIGH LEAD YARDER Ot R09.02 HYPOXEMIA 12/06/2019 MARIANA, JUSTO E HIGH LEAD YARDER Ot Z86.19 PERSONAL HISTORY OF OTHER INFECTIOUS AND 12/08/2019 MARIANA, JUSTO E HIGH LEAD YARDER Ot G47.33 OBSTRUCTIVE SLEEP APNEA (ADULT) (PEDIATR 12/08/2019 MARIANA, JUSTO E HIGH LEAD YARDER Ot J18.8 OTHER PNEUMONIA, UNSPECIFIED ORGANISM 12/08/2019 MARIANA, JUSTO E HIGH LEAD YARDER Ot J30.9 ALLERGIC RHINITIS, UNSPECIFIED 12/08/2019 MARIANA, JUSTO E HIGH LEAD YARDER Ot R09.02 HYPOXEMIA 12/08/2019 MARIANA, JUSTO E HIGH LEAD YARDER Ot Z86.19 PERSONAL HISTORY OF OTHER INFECTIOUS AND 12/13/2019 MARIANA, JUSTO E HIGH LEAD YARDER Ot G47.33 OBSTRUCTIVE SLEEP APNEA (ADULT) (PEDIATR 12/13/2019 MARIANA, JUSTO E HIGH LEAD YARDER Ot J18.8 OTHER PNEUMONIA, UNSPECIFIED ORGANISM 12/13/2019 MARIANA, JUSTO E HIGH LEAD YARDER Ot J30.9 ALLERGIC RHINITIS, UNSPECIFIED 12/13/2019 MARIANA, JUSTO E HIGH LEAD YARDER Ot R09.02 HYPOXEMIA 12/13/2019 MARIANA, JUSTO E HIGH LEAD YARDER Ot Z86.19 PERSONAL HISTORY OF OTHER INFECTIOUS AND 12/13/2019 MARIANA, JUSTO E HIGH LEAD YARDER Ot J84.112 IDIOPATHIC PULMONARY FIBROSIS 12/13/2019 MARIANA, JUSTO E HIGH LEAD YARDER Ot R91.8 OTHER NONSPECIFIC ABNORMAL FINDING OF SOPHAI 12/13/2019 MARIANA, JUSTO E HIGH LEAD YARDER Ot Z86.19 PERSONAL HISTORY OF OTHER INFECTIOUS AND 12/13/2019 NAHEED CLARK RAND CEMENTER Ot J84.9 INTERSTITIAL PULMONARY DISEASE, UNSPECIF 12/13/2019 NAHEED CLARK RAND CEMENTER Ot M19.011 PRIMARY OSTEOARTHRITIS, RIGHT SHOULDER 12/13/2019 NAHEED CLARK RAND CEMENTER Ot J84.9 INTERSTITIAL PULMONARY DISEASE, UNSPECIF 12/13/2019 NAHEED CLARK RAND CEMENTER Ot M19.011 PRIMARY OSTEOARTHRITIS, RIGHT SHOULDER 12/18/2019 MARIANA, JUSTO E HIGH LEAD YARDER Ot J84.112 IDIOPATHIC PULMONARY FIBROSIS 12/18/2019 MARIANA, JUSTO E HIGH LEAD YARDER Ot R91.8 OTHER NONSPECIFIC ABNORMAL FINDING OF SOPHIA 12/18/2019 MARIANA, JUSTO E HIGH LEAD YARDER Ot Z86.19 PERSONAL HISTORY OF OTHER INFECTIOUS AND 12/20/2019 MARIANA, JUSTO E HIGH LEAD YARDER Ot G47.33 OBSTRUCTIVE SLEEP APNEA (ADULT) (PEDIATR 12/20/2019 MARIANA, JUSTO E HIGH LEAD YARDER Ot J18.8 OTHER PNEUMONIA, UNSPECIFIED ORGANISM 12/20/2019 MARIANA, JUSTO E HIGH LEAD YARDER Ot J30.9 ALLERGIC RHINITIS, UNSPECIFIED 12/20/2019 MARIANA, JUSTO E HIGH LEAD YARDER Ot R09.02 HYPOXEMIA 12/20/2019 MARIANA, JUSTO E HIGH LEAD YARDER Ot Z86.19 PERSONAL HISTORY OF OTHER INFECTIOUS AND 12/22/2019 MARIANA, JUSTO E HIGH LEAD YARDER Ot G47.33 OBSTRUCTIVE SLEEP APNEA (ADULT) (PEDIATR 12/22/2019 MARIANA, JUSTO E HIGH LEAD YARDER Ot J18.8 OTHER PNEUMONIA, UNSPECIFIED ORGANISM 12/22/2019 MARIANA, JUSTO E HIGH LEAD YARDER Ot J30.9 ALLERGIC RHINITIS, UNSPECIFIED 12/22/2019 MARIANA, JUSTO E HIGH LEAD YARDER Ot R09.02 HYPOXEMIA 12/22/2019 MARIANA, JUSTO E HIGH LEAD YARDER Ot Z86.19 PERSONAL HISTORY OF OTHER INFECTIOUS AND 12/26/2019 MARIANA, JUSTO E HIGH LEAD YARDER Ot G47.33 OBSTRUCTIVE SLEEP APNEA (ADULT) (PEDIATR 12/26/2019 MARIANA, JUSTO E HIGH LEAD YARDER Ot J18.8 OTHER PNEUMONIA, UNSPECIFIED ORGANISM 12/26/2019 MARIANA, JUSTO E HIGH LEAD YARDER Ot J30.9 ALLERGIC RHINITIS, UNSPECIFIED 12/26/2019 MARIANA, JUSTO E HIGH LEAD YARDER Ot R09.02 HYPOXEMIA 12/26/2019 MARIANA, JUSTO E HIGH LEAD YARDER Ot Z86.19 PERSONAL HISTORY OF OTHER INFECTIOUS AND 12/29/2019 MARIANA, JUSTO E HIGH LEAD YARDER Ot G47.33 OBSTRUCTIVE SLEEP APNEA (ADULT) (PEDIATR 12/29/2019 MARIANA, JUSTO E HIGH LEAD YARDER Ot J18.8 OTHER PNEUMONIA, UNSPECIFIED ORGANISM 12/29/2019 BELINDA PEÑAINE E HIGH LEAD YARDER Ot J30.9 ALLERGIC RHINITIS, UNSPECIFIED 12/29/2019 MARIANA, JUSTO E HIGH LEAD YARDER Ot R09.02 HYPOXEMIA 12/29/2019 MARIANA, JUSTO E HIGH LEAD YARDER Ot Z86.19 PERSONAL HISTORY OF OTHER INFECTIOUS AND 12/30/2019 W I10 Essent ial (primary) hypertension [place] 12/30/2019 W J01.01 Acu te recurrent maxillary sinusitis [place] 12/30/2019 W J84.10 Pul monary interstitial fibrosis [place] 12/30/2019 W R05 Cough [place] 12/30/2019 W I10 Essent ial (primary) hypertension Clark Naheed 12/30/2019 W J84.10 Pul monary interstitial fibrosis Luis Naheed 12/30/2019 W M25.511 Ri ght shoulder pain Luis Naheed 12/30/2019 W M79.641 Bi lateral hand pain Clark Naheed 12/30/2019 W M79.7 Fibr omyalgia Luis Naheed 01/03/2020 MARIANA, JUSTO E HIGH LEAD YARDER Ot G47.33 OBSTRUCTIVE SLEEP APNEA (ADULT) (PEDIATR 01/03/2020 BELINDA PEÑAINE E HIGH LEAD YARDER Ot J18.8 OTHER PNEUMONIA, UNSPECIFIED ORGANISM 01/03/2020 BELINDA PEÑAINE E HIGH LEAD YARDER Ot J30.9 ALLERGIC RHINITIS, UNSPECIFIED 01/03/2020 BELINDA PEÑAINE E HIGH LEAD YARDER Ot R09.02 HYPOXEMIA 01/03/2020 MARIANA JUSTO E HIGH LEAD YARDER Ot Z86.19 PERSONAL HISTORY OF OTHER INFECTIOUS AND 01/03/2020 MARIANA, JUSTO E HIGH LEAD YARDER Ot G47.33 OBSTRUCTIVE SLEEP APNEA (ADULT) (PEDIATR 01/03/2020 MARIANA, JUSTO E HIGH LEAD YARDER Ot J18.8 OTHER PNEUMONIA, UNSPECIFIED ORGANISM 01/03/2020 MARIANA JUSTO E HIGH LEAD YARDER Ot J30.9 ALLERGIC RHINITIS, UNSPECIFIED 01/03/2020 MARIANA, JUSTO E HIGH LEAD YARDER Ot R09.02 HYPOXEMIA 01/03/2020 MARIANA, JUSTO E HIGH LEAD YARDER Ot Z86.19 PERSONAL HISTORY OF OTHER INFECTIOUS AND 01/05/2020 MARIANA, JUSTO E HIGH LEAD YARDER Ot G47.33 OBSTRUCTIVE SLEEP APNEA (ADULT) (PEDIATR 01/05/2020 JUSTO PEÑA HIGH LEAD YARDER Ot J18.8 OTHER PNEUMONIA, UNSPECIFIED ORGANISM 01/05/2020 JUSTO PEÑA APRN Ot J30.9 ALLERGIC RHINITIS, UNSPECIFIED 01/05/2020 JUSTO PEÑA APRN Ot R09.02 HYPOXEMIA 01/05/2020 JUSTO PEÑA HIGH LEAD YARDER Ot Z86.19 PERSONAL HISTORY OF OTHER INFECTIOUS AND 01/10/2020 TEJAS ROJAS HIGH LEAD YARDER Ot V70.0 ROUTINE MEDICAL EXAM 01/10/2020 TEJAS ROJAS APRN Ot V76.12 OTH SCREEN MAMMO-MALIGN NEOPLASM OF [place]BIE 01/10/2020 [facility] [place] [facility]RIGUE[facility] Ot 211. 3 BENIGN NEOPLASM LG BOWEL 01/10[facility] 10 DIVERTICULOSIS COLON (W/O MENT OF HEMORR 01/10/2020 [place] DUC RODRIGUEZ Ot V76. 51 SCREEN MAL NEOP-COLON 01/10/2020 [facility] V72. 84 EXAM PRE-OPERATIVE NOS 01/10/2020 FAUZIA ACOSTA HIGH LEAD YARDER Ot M19.042 PRIMARY OSTEOARTHRITIS, LEFT HAND 01/10/2020 TINO LUNDBERG, MARBIN Taylor Ot Z12.31 ENCNTR SCREEN MAMMOGRAM FOR MALIGNANT NE 01/10/2020 NAHEED CLARK RAND CEMENTER Ot R05 COUGH 01/10/2020 NAHEED CLARK RAND CEMENTER Ot R06.00 DYSPNEA, UNSPECIFIED 01/10/2020 LIDIA CELESTE DO Ot J30. 9 ALLERGIC RHINITIS, UNSPECIFIED 01/10/2020 LIDIA CELESTE DO Ot K80. 20 CALCULUS OF GALLBLADDER W/O CHOLECYSTITI 01/10/2020 LIDIA CELESTE DO Ot R06. 00 DYSPNEA, UNSPECIFIED 01/10/2020 LIDIA CELESTE DO Ot R59. 0 LOCALIZED ENLARGED LYMPH NODES 01/10/2020 JUSTO PEÑA APRN Ot R06.00 DYSPNEA, UNSPECIFIED 01/10/2020 JUSTO PEÑA APRN Ot R09.02 HYPOXEMIA 01/10/2020 LIDIA CELESTE DO Ot J30. 9 ALLERGIC RHINITIS, UNSPECIFIED 01/10/2020 LIDIA CELESTE DO Ot R06. 00 DYSPNEA, UNSPECIFIED 01/10/2020 LIDIA CELESTE DO Ot J84. 9 INTERSTITIAL PULMONARY DISEASE, UNSPECIF 01/10/2020 JUSTO PEÑA HIGH LEAD YARDER Ot J98.4 OTHER DISORDERS OF LUNG 01/10/2020 BELINDA PEÑAINE Merline HIGH LEAD YARDER Ot R06.00 DYSPNEA, UNSPECIFIED 01/10/2020 JUSTO PEÑA E HIGH LEAD YARDER Ot R09.02 HYPOXEMIA 01/10/2020 JUSTO PEÑA HIGH LEAD YARDER Ot J98.4 OTHER DISORDERS OF LUNG 01/10/2020 BELINDA PEÑAINE Merline HIGH LEAD YARDER Ot R06.00 DYSPNEA, UNSPECIFIED 01/10/2020 JUSTO PEÑA E HIGH LEAD YARDER Ot R09.02 HYPOXEMIA 01/10/2020 JUSTO PEÑA HIGH LEAD YARDER Ot J98.4 OTHER DISORDERS OF LUNG 01/10/2020 JUSTO PEÑA HIGH LEAD YARDER Ot R06.00 DYSPNEA, UNSPECIFIED 01/10/2020 JUSTO PEÑA HIGH LEAD YARDER Ot R09.02 HYPOXEMIA 01/10/2020 JUSTO PEÑA HIGH LEAD YARDER Ot I25.10 ATHSCL HEART DISEASE OF [place] CORONARY 01/10/2020 JUSTO PEÑA HIGH LEAD YARDER Ot J44.9 CHRONIC OBSTRUCTIVE PULMONARY DISEASE, U 01/10/2020 JUSTO PEÑA HIGH LEAD YARDER Ot K80.20 CALCULUS OF GALLBLADDER W/O CHOLECYSTITI 01/10/2020 JUSTO PEÑA HIGH LEAD YARDER Ot J06.9 ACUTE UPPER RESPIRATORY INFECTION, UNSPE 01/10/2020 JUSTO PEÑA HIGH LEAD YARDER Ot Z86.19 PERSONAL HISTORY OF OTHER INFECTIOUS AND 01/10/2020 JUSTO PEÑA HIGH LEAD YARDER Ot F17.201 NICOTINE DEPENDENCE, UNSPECIFIED, IN REM 01/10/2020 JUSTO PEÑA HIGH LEAD YARDER Ot J30.9 ALLERGIC RHINITIS, UNSPECIFIED 01/10/2020 JUSTO PEÑA HIGH LEAD YARDER Ot R09.02 HYPOXEMIA 01/10/2020 JUSTO PEÑA HIGH LEAD YARDER Ot R91.8 OTHER NONSPECIFIC ABNORMAL FINDING OF SOPHIA 01/10/2020 JUSTO PEÑA HIGH LEAD YARDER Ot Z86.19 PERSONAL HISTORY OF OTHER INFECTIOUS AND 01/10/2020 NAHEED CLARK Ot Z12.31 ENCNTR SCREEN MAMMOGRAM FOR MALIGNANT NE 01/10/2020 DAVE, FAUZIA M HIGH LEAD YARDER Ot N60.02 SOLITARY CYST OF LEFT BREAST 01/10/2020 FAUZIA ACOSTA HIGH LEAD YARDER Ot N63.23 UNSPECIFIED LUMP IN THE LEFT BREAST, LOW 01/10/2020 MARIANA, JUSTO E HIGH LEAD YARDER Ot F17.201 NICOTINE DEPENDENCE, UNSPECIFIED, IN REM 01/10/2020 MARIANA, JUSTO E HIGH LEAD YARDER Ot J18.8 OTHER PNEUMONIA, UNSPECIFIED ORGANISM 01/10/2020 MARIANA, JUSTO E HIGH LEAD YARDER Ot J30.9 ALLERGIC RHINITIS, UNSPECIFIED 01/10/2020 MARIANA, JUSTO E HIGH LEAD YARDER Ot Z86.19 PERSONAL HISTORY OF OTHER INFECTIOUS AND 01/10/2020 MARIANA, JUSTO E HIGH LEAD YARDER Ot F17.201 NICOTINE DEPENDENCE, UNSPECIFIED, IN REM 01/10/2020 MARIANA, JUSTO E HIGH LEAD YARDER Ot G47.33 OBSTRUCTIVE SLEEP APNEA (ADULT) (PEDIATR 01/10/2020 MARIANA, JUSTO E HIGH LEAD YARDER Ot J18.8 OTHER PNEUMONIA, UNSPECIFIED ORGANISM 01/10/2020 MARIANA, JUSTO E HIGH LEAD YARDER Ot J84.9 INTERSTITIAL PULMONARY DISEASE, UNSPECIF 01/10/2020 MARIANA, JUSTO E HIGH LEAD YARDER Ot Z86.19 PERSONAL HISTORY OF OTHER INFECTIOUS AND 01/10/2020 MARIANA, JUSTO E HIGH LEAD YARDER Ot G47.33 OBSTRUCTIVE SLEEP APNEA (ADULT) (PEDIATR 01/10/2020 MARIANA, JUSTO E HIGH LEAD YARDER Ot J18.8 OTHER PNEUMONIA, UNSPECIFIED ORGANISM 01/10/2020 MARIANA, JUSTO E HIGH LEAD YARDER Ot J30.9 ALLERGIC RHINITIS, UNSPECIFIED 01/10/2020 MARIANA, JUSTO E HIGH LEAD YARDER Ot R09.02 HYPOXEMIA 01/10/2020 MARIANA, JUSTO E HIGH LEAD YARDER Ot Z86.19 PERSONAL HISTORY OF OTHER INFECTIOUS AND 01/10/2020 MARIANA, JUSTO E HIGH LEAD YARDER Ot G47.33 OBSTRUCTIVE SLEEP APNEA (ADULT) (PEDIATR 01/10/2020 MARIANA, JUSTO E HIGH LEAD YARDER Ot J18.8 OTHER PNEUMONIA, UNSPECIFIED ORGANISM 01/10/2020 MARIANA, JUSTO E HIGH LEAD YARDER Ot J30.9 ALLERGIC RHINITIS, UNSPECIFIED 01/10/2020 MARIANA, JUSTO E HIGH LEAD YARDER Ot R09.02 HYPOXEMIA 01/10/2020 MARIANA, JUSTO E HIGH LEAD YARDER Ot Z86.19 PERSONAL HISTORY OF OTHER INFECTIOUS AND 01/10/2020 MARIANA, JUSTO E HIGH LEAD YARDER Ot J84.112 IDIOPATHIC PULMONARY FIBROSIS 01/10/2020 MARIANA, JUSTO E HIGH LEAD YARDER Ot R91.8 OTHER NONSPECIFIC ABNORMAL FINDING OF SOPHIA 01/10/2020 MARIANA, JUSTO E HIGH LEAD YARDER Ot Z86.19 PERSONAL HISTORY OF OTHER INFECTIOUS AND 01/10/2020 CLARK NAHEED Mc RAND CEMENTER Ot J84.9 INTERSTITIAL PULMONARY DISEASE, UNSPECIF 01/10/2020 NAHEED CLARK RAND CEMENTER Ot M19.011 PRIMARY OSTEOARTHRITIS, RIGHT SHOULDER 01/10/2020 MARIANA, JUSTO E HIGH LEAD YARDER Ot G47.33 OBSTRUCTIVE SLEEP APNEA (ADULT) (PEDIATR 01/10/2020 MARIANA, JUSTO E HIGH LEAD YARDER Ot J18.8 OTHER PNEUMONIA, UNSPECIFIED ORGANISM 01/10/2020 MARIANA, JUSTO E HIGH LEAD YARDER Ot J30.9 ALLERGIC RHINITIS, UNSPECIFIED 01/10/2020 MARIANA, JUSTO E HIGH LEAD YARDER Ot R09.02 HYPOXEMIA 01/10/2020 MARIANA, JUSTO E HIGH LEAD YARDER Ot Z86.19 PERSONAL HISTORY OF OTHER INFECTIOUS AND 01/12/2020 MARIANA, JUSTO E HIGH LEAD YARDER Ot G47.33 OBSTRUCTIVE SLEEP APNEA (ADULT) (PEDIATR 01/12/2020 MARIANA, JUSTO E HIGH LEAD YARDER Ot J18.8 OTHER PNEUMONIA, UNSPECIFIED ORGANISM 01/12/2020 MARIANA, JUSTO E HIGH LEAD YARDER Ot J30.9 ALLERGIC RHINITIS, UNSPECIFIED 01/12/2020 MARIANA, JUSTO E HIGH LEAD YARDER Ot R09.02 HYPOXEMIA 01/12/2020 MARIANA, JUSTO E HIGH LEAD YARDER Ot Z86.19 PERSONAL HISTORY OF OTHER INFECTIOUS AND 02/07/2020 MARIANA, JUSTO E HIGH LEAD YARDER Ot G47.33 OBSTRUCTIVE SLEEP APNEA (ADULT) (PEDIATR 02/07/2020 MARIANA, JUSTO E HIGH LEAD YARDER Ot J18.8 OTHER PNEUMONIA, UNSPECIFIED ORGANISM 02/07/2020 MARIANA, JUSTO E HIGH LEAD YARDER Ot J30.9 ALLERGIC RHINITIS, UNSPECIFIED 02/07/2020 MARIANA, JUSTO E HIGH LEAD YARDER Ot R09.02 HYPOXEMIA 02/07/2020 MARIANA, JUSTO E HIGH LEAD YARDER Ot Z86.19 PERSONAL HISTORY OF OTHER INFECTIOUS AND 02/08/2020 MARIANA, JUSTO E HIGH LEAD YARDER Ot G47.33 OBSTRUCTIVE SLEEP APNEA (ADULT) (PEDIATR 02/08/2020 MARIANA, JUSTO E HIGH LEAD YARDER Ot J18.8 OTHER PNEUMONIA, UNSPECIFIED ORGANISM 02/08/2020 JUSTO PEÑA APRN Ot J30.9 ALLERGIC RHINITIS, UNSPECIFIED 02/08/2020 JUSTO PEÑA APRN Ot R09.02 HYPOXEMIA 02/08/2020 JUSTO PEÑA HIGH LEAD YARDER Ot Z86.19 PERSONAL HISTORY OF OTHER INFECTIOUS AND 03/27/2020 W I10 Essent ial (primary) hypertension [facility] 03/27/2020 W J84.10 Pul monary interstitial fibrosis [facility] 03/27/2020 W M79.7 Fibr omyalgia [facility] 04/18/2020 JUSTO PEÑA APRN Ot F17.201 NICOTINE DEPENDENCE, UNSPECIFIED, IN REM 04/18/2020 JUSTO PEÑA APRN Ot G47.33 OBSTRUCTIVE SLEEP APNEA (ADULT) (PEDIATR 04/18/2020 JUSTO PEÑA APRN Ot G47.36 SLEEP RELATED HYPOVENTILATION IN CONDITI 04/18/2020 JUSTO PEÑA APRN Ot J30.9 ALLERGIC RHINITIS, UNSPECIFIED 04/18/2020 JUSTO PEÑA APRN Ot J84.112 IDIOPATHIC PULMONARY FIBROSIS 04/18/2020 JUSTO PEÑA APRN Ot J84.17 OTH INTERSTIT PULMON DIS W FIBROSIS IN D 04/18/2020 JUSTO PEÑA APRN Ot Z86.19 PERSONAL HISTORY OF OTHER INFECTIOUS AND 05/15/2020 LIDIA CELESTE DO Ot J84.112 IDIOPATHIC PULMONARY FIBROSIS 05/15/2020 LIDIA CELESTE DO Ot R91. 8 OTHER NONSPECIFIC ABNORMAL FINDING OF SOPHIA Procedures Code Description Performed By Per formed On [id number] DR COLEMAN OF RIGHT MAIN BRONCHUS, ENDO, D 09/23/[id number] COLEMAN OF LEFT MAIN BR[place], ENDO, DI 09/23/2019 Results Test Result Range Complete blood count (CBC) with automate d white blood cell (WBC) differential - 08/14/16 15:57 Blood leukocytes automated count (number/volume) 9.6 10*3/uL 4.3-11.0 Blood erythrocytes automated count (number/volume) 4.49 10*6/uL 4.35-5.85 Venous blood hemoglobin measurement (mass/volume) 14.4 g/dL 11.5-16.0 Blood hematocrit (volume fraction) 43 % 35-52 Automated erythrocyte mean corpuscular volume 97 [ foz_us] 80-99 Automated erythrocyte mean corpuscular h emoglobin (mass per erythrocyte) 32 pg 25-34 Automated erythrocyte mean corpuscular h emoglobin concentration measurement (mass/volume) 33 g/dL 32-36 Automated erythrocyte distribution width ratio 13. 9 % 10.0- 14.5 Automated blood platelet count (count/volume) 292 10*3/uL 130-400 Automated blood platelet mean volume measurement 10.2 [foz_us] 7.4-10.4 Automated blood neutrophils/100 leukocytes 58 % 42-75 Automated blood lymphocytes/100 leukocytes 28 % 12-44 Blood monocytes/100 leukocytes 10 % 0-12 Automated blood eosinophils/100 leukocytes 4 % 0-10 Automated blood basophils/100 leukocytes 1 % 0-10 Blood neutrophils automated count (number/volume) 5.6 10*3 1.8-7.8 Blood lymphocytes automated count (number/volume) 2.7 10*3 1.0-4.0 Blood monocytes automated count (number/volume) 0. 9 10*3 0.0-1.0 Automated eosinophil count 0.3 10*3/uL 0 .0-0.3 Automated blood basophil count (count/volume) 0.1 10*3/uL 0.0-0.1 Comprehensive metabolic panel - 08/14/16 15:57 Serum or plasma sodium measurement (moles/volume) 141 mmol/L 135-145 Serum or plasma potassium measurement (moles/volume) 4.0 mmol/L 3.6-5.0 Serum or plasma chloride measurement (moles/volume) 108 mmol/L 98-107 Carbon dioxide 22 mmol/L 21-32 Serum or plasma anion gap determination (moles/volume) 11 mmol/L 5-14 Serum or plasma urea nitrogen measurement (mass/volume ) 12 mg/dL 7-18 Serum or plasma creatinine measurement (mass/volume) 0.72 mg/dL 0.60-1.30 Serum or plasma urea nitrogen/creatinine mass ratio 17 NRG Serum or plasma creatinine measurement w ith calculation of estimated glomerular filtration rate > NRG Serum or plasma glucose measurement (mass/volume) 113 mg/dL 70-105 Serum or plasma calcium measurement (mass/volume) 9.3 mg/dL 8.5-10.1 Serum or plasma total bilirubin measurement (mass/volu me) 0.4 mg/dL 0.1-1.0 Serum or plasma alkaline phosphatase edmar surement (enzymatic activity/volume) 64 U/L 40-136 Serum or plasma aspartate aminotransfera se measurement (enzymatic activity/volume) 22 U/L 5-34 Serum or plasma alanine aminotransferase measurement (enzymatic activity/volume) 24 U/L 0-55 Serum or plasma protein measurement (mass/volume) 7.6 g/dL 6.4-8.2 Serum or plasma albumin measurement (mass/volume) 4.2 g/dL 3.2-4.5 Serum or plasma lithium measurement (mol es/volume) - 08/14/16 15:57 BNP level 97.9 pg/mL <100.0 Sputum Gram stain - 08/27/16 08:05 Bacteria identification in bronchial spe cimen by aerobe culture - 08/27/16 08:05 Bacteria identification in bronchial specimen by aerob e culture NORMAL NRG Mycobacterium species detection by organ ism specific culture - 08/27/16 08:05 DATE/TIME MICROSCOPIC 08/28/16 NRG MICROSCOPIC NO ACID-FAST BACILLI FOUND NRG DATE/TIME VERBAL REPORT 08-28-2016 NRG VERBAL REPORT FROM [facility] AFB SMEAR NEGATIVE NRG AFB CULTURE NO MYCOBACTERIA RECOVERED AFTER 6 WEEK S NRG DATE FINAL AFB CULTURE 10/09/16 NRG Fungus culture - 08/27/16 08:05 QUANTITY OF GROWTH Isolated NRG FTX;REPORTABLE SENT TO [facility] FOR ID NRG FUNGUS REPORT FUNGUS GROWTH OBSERVED NR G Fungus culture [id number] NRG IDENTIFICATION TO FOLLOW ID BY [facility] NRG Anti-dsDNA Antibodies - 09/18/16 12:01 ANTI-DNA (DS) AB QN 2 IU/ML 0-9 OPERATIONS GENERAL AGENT Antibodies - 09/18/16 12:01 OPERATIONS GENERAL AGENT ANTIBODIES 0.3 AI 0.0-0.9 Blood CBC with ordered manual differenti al panel - 06/29/17 11:34 Blood leukocytes automated count (number/volume) 7.0 10*3/uL 4.3-11.0 Blood erythrocytes automated count (number/volume) 4.05 10*6/uL 4.35-5.85 Venous blood hemoglobin measurement (mass/volume) 13.0 g/dL 11.5-16.0 Blood hematocrit (volume fraction) 40 % 35-52 Automated erythrocyte mean corpuscular volume 99 [ foz_us] 80-99 Automated erythrocyte mean corpuscular h emoglobin (mass per erythrocyte) 32 pg 25-34 Automated erythrocyte mean corpuscular h emoglobin concentration measurement (mass/volume) 32 g/dL 32-36 Automated erythrocyte distribution width ratio 13. 5 % 10.0- 14.5 Automated blood platelet count (count/volume) 292 10*3/uL 130-400 Automated blood platelet mean volume measurement 10.1 [foz_us] 7.4-10.4 Automated blood neutrophils/100 leukocytes 60 % 42-75 Automated blood lymphocytes/100 leukocytes 28 % 12-44 Blood monocytes/100 leukocytes 9 % 0-12 Automated blood eosinophils/100 leukocytes 2 % 0-10 Automated blood basophils/100 leukocytes 1 % 0-10 Blood neutrophils automated count (number/volume) 4.2 10*3 1.8-7.8 Blood lymphocytes automated count (number/volume) 2.0 10*3 1.0-4.0 Blood monocytes automated count (number/volume) 0. 6 10*3 0.0-1.0 Automated eosinophil count 0.1 10*3/uL 0 .0-0.3 Automated blood basophil count (count/volume) 0.0 10*3/uL 0.0-0.1 Hypersensitivity pneumonitis screen - 11:34 Saccharopolyspora rectivirgula IgE serum NEGATIVE NEGATIVE Thermoactinomyces vulgaris ab NEGATIVE NEGATIVE Aspergillus fumigatus Ab [Units/volume] in Serum N EGATIVE NEGATIVE [place] feather IgE Ab RAST class [Presence] in Serum NEGATIVE NEGATIVE Thermoactinomyces candidus ab NEGATIVE NEGATIVE Saccharomonospora viridis ab NEGATIVE N EGATIVE Sed Rate - 07/23/17 10:10 Sed Rate 2 mm/hr 9-15 Comprehensive metabolic panel - 09/22/19 10:45 Serum or plasma sodium measurement (moles/volume) 139 mmol/L 135-145 Serum or plasma potassium measurement (moles/volume) 3.9 mmol/L 3.6-5.0 Serum or plasma chloride measurement (moles/volume) 105 mmol/L 98-107 Carbon dioxide 25 mmol/L 21-32 Serum or plasma anion gap determination (moles/volume) 9 mmol/L 5-14 Serum or plasma urea nitrogen measurement (mass/volume ) 11 mg/dL 7-18 Serum or plasma creatinine measurement (mass/volume) 0.72 mg/dL 0.60-1.30 Serum or plasma urea nitrogen/creatinine mass ratio 15 NRG Serum or plasma creatinine measurement w ith calculation of estimated glomerular filtration rate > NRG Serum or plasma glucose measurement (mass/volume) 105 mg/dL 70-105 Serum or plasma calcium measurement (mass/volume) 9.4 mg/dL 8.5-10.1 Serum or plasma total bilirubin measurement (mass/volu me) 0.5 mg/dL 0.1-1.0 Serum or plasma alkaline phosphatase edmar surement (enzymatic activity/volume) 61 U/L 40-136 Serum or plasma aspartate aminotransfera se measurement (enzymatic activity/volume) 20 U/L 5-34 Serum or plasma alanine aminotransferase measurement (enzymatic activity/volume) 14 U/L 0-55 Serum or plasma protein measurement (mass/volume) 7.3 g/dL 6.4-8.2 Serum or plasma albumin measurement (mass/volume) 4.0 g/dL 3.2-4.5 CALCIUM CORRECTED 9.4 mg/dL 8.5-10.1 Influenza virus A and B antigen detectio n - 09/22/19 10:45 FLU RESULT NEGATIVE FOR INFLUENZA A AND B ANTIGENS BY IA NRG Methicillin resistant Staphylococcus aur eus (MRSA) screening culture - 09/22/19 10:45 Methicillin resistant Staphylococcus aureus (MRSA) scr eening culture NEG NRG Bacterial blood culture - 09/22/19 10:54 Bacterial blood culture NG NRG Bacterial blood culture - 09/22/19 10:59 Bacterial blood culture NG NRG Complete urinalysis with reflex to cultu re - 09/22/19 11:20 Urine color determination YELLOW NRG Urine clarity determination CLEAR NR G Urine pH measurement by test strip 6.0 5-9 Specific gravity of urine by test strip 1.015 1.016-1.022 Urine protein assay by test strip, semi-quantitative NEGATIVE NEGATIVE Urine glucose detection by automated test strip NE GATIVE NEGATIVE Erythrocytes detection in urine sediment by light micr oscopy TRACE-I NEGATIVE Urine ketones detection by automated test strip NE GATIVE NEGATIVE Urine nitrite detection by test strip NEGATIVE NEGATIVE Urine total bilirubin detection by test strip NEGA TIVE NEGATIVE Urine urobilinogen measurement by automated test strip (mass/volume) 0.2 mg/dL < = 1.0 Urine leukocyte esterase detection by dipstick NEG ATIVE NEGATIVE Automated urine sediment erythrocyte cou nt by microscopy (number/high power field) [HPF] NRG Automated urine sediment leukocyte count by microscopy (number/high power field) [HPF] NRG Bacteria detection in urine sediment by light microsco py TRACE NRG Squamous epithelial cells detection in u rine sediment by light microscopy 5-10 NRG Crystals detection in urine sediment by light microsco py NONE NRG Casts detection in urine sediment by light microscopy NONE NRG Mucus detection in urine sediment by light microscopy NEGATIVE NRG Complete urinalysis with reflex to culture NO NRG Urine Legionella pneumophila antigen ass ay - 09/22/19 11:20 Urine Legionella pneumophila antigen assay Negativ e NRG Streptococcus pneumoniae antigen detecti on - 09/22/19 11:20 Streptococcus pneumoniae antigen detection Negativ e NRG RESPIRATORY VIRUS PANEL - 09/22/19 11:20 Serum ragweed IgE antibody assay Not Detected Not Detected Serum or plasma aripiprazole measurement (mass/volume) Not Detected Not Detected PARAINFLU 3 PCR Not Detected Not Detect ed METAPNEUMO PCR Not Detected Not Detecte d Adenovirus detection, CSF, PCR Not Detected Not Detected INFLUENZA A PCR Not Detected Not Detect ed INFLUENZA B PCR Not Detected Not Detect ed Complete blood count (CBC) with automate d white blood cell (WBC) differential - 09/23/19 03:35 Blood leukocytes automated count (number/volume) 8.9 10*3/uL 4.3-11.0 Blood erythrocytes automated count (number/volume) 3.76 10*6/uL 4.35-5.85 Venous blood hemoglobin measurement (mass/volume) 12.2 g/dL 11.5-16.0 Blood hematocrit (volume fraction) 37 % 35-52 Automated erythrocyte mean corpuscular volume 99 [ foz_us] 80-99 Automated erythrocyte mean corpuscular h emoglobin (mass per erythrocyte) 32 pg 25-34 Automated erythrocyte mean corpuscular h emoglobin concentration measurement (mass/volume) 33 g/dL 32-36 Automated erythrocyte distribution width ratio 14. 1 % 10.0- 14.5 Automated blood platelet count (count/volume) 307 10*3/uL 130-400 Automated blood platelet mean volume measurement 9.8 [foz_us] 7.4-10.4 Automated blood neutrophils/100 leukocytes 89 % 42-75 Automated blood lymphocytes/100 leukocytes 10 % 12-44 Blood monocytes/100 leukocytes 1 % 0-12 Automated blood eosinophils/100 leukocytes 0 % 0-10 Automated blood basophils/100 leukocytes 0 % 0-10 Blood neutrophils automated count (number/volume) 7.8 10*3 1.8-7.8 Blood lymphocytes automated count (number/volume) 0.9 10*3 1.0-4.0 Blood monocytes automated count (number/volume) 0. 1 10*3 0.0-1.0 Automated eosinophil count 0.0 10*3/uL 0 .0-0.3 Automated blood basophil count (count/volume) 0.0 10*3/uL 0.0-0.1 Whole blood basic metabolic panel - 09/03 12/21 03:35 Serum or plasma sodium measurement (moles/volume) 141 mmol/L 135-145 Serum or plasma potassium measurement (moles/volume) 4.1 mmol/L 3.6-5.0 Serum or plasma chloride measurement (moles/volume) 108 mmol/L 98-107 Carbon dioxide 23 mmol/L 21-32 Serum or plasma anion gap determination (moles/volume) 10 mmol/L 5-14 Serum or plasma urea nitrogen measurement (mass/volume ) 11 mg/dL 7-18 Serum or plasma creatinine measurement (mass/volume) 0.74 mg/dL 0.60-1.30 Serum or plasma urea nitrogen/creatinine mass ratio 15 NRG Serum or plasma creatinine measurement w ith calculation of estimated glomerular filtration rate > NRG Serum or plasma glucose measurement (mass/volume) 146 mg/dL 70-105 Serum or plasma calcium measurement (mass/volume) 9.0 mg/dL 8.5-10.1 Serum or plasma phosphate measurement (m ass/volume) - 09/23/19 03:35 Serum or plasma phosphate measurement (mass/volume) 3.8 mg/dL 2.3-4.7 Magnesium - 09/23/19 03:35 Magnesium 1.9 mg/dL 1.6-2.4 Serum or plasma lithium measurement (mol es/volume) - 09/23/19 03:35 BNP PT 104.8 pg/mL <100.0 Sputum Gram stain - 09/23/19 08:45 Sputum Gram stain No bacteria seen NRG Mycobacterium species detection by organ ism specific culture - 09/23/19 08:45 Bacteria identification in bronchial spe cimen by aerobe culture - 09/23/19 08:45 QUANTITY OF GROWTH . NRG Bacteria identification in bronchial specimen by aerob e culture USUAL RESP NRG Fungus culture - 09/23/19 08:45 Whole blood basic metabolic panel - 09/03 01/18 03:48 Serum or plasma sodium measurement (moles/volume) 144 mmol/L 135-145 Serum or plasma potassium measurement (moles/volume) 3.8 mmol/L 3.6-5.0 Serum or plasma chloride measurement (moles/volume) 109 mmol/L 98-107 Carbon dioxide 22 mmol/L 21-32 Serum or plasma anion gap determination (moles/volume) 13 mmol/L 5-14 Serum or plasma urea nitrogen measurement (mass/volume ) 13 mg/dL 7-18 Serum or plasma creatinine measurement (mass/volume) 0.69 mg/dL 0.60-1.30 Serum or plasma urea nitrogen/creatinine mass ratio 19 NRG Serum or plasma creatinine measurement w ith calculation of estimated glomerular filtration rate > NRG Serum or plasma glucose measurement (mass/volume) 137 mg/dL 70-105 Serum or plasma calcium measurement (mass/volume) 8.8 mg/dL 8.5-10.1 Whole blood basic metabolic panel - 09/03 02/18 04:22 Serum or plasma sodium measurement (moles/volume) 143 mmol/L 135-145 Serum or plasma potassium measurement (moles/volume) 4.1 mmol/L 3.6-5.0 Serum or plasma chloride measurement (moles/volume) 107 mmol/L 98-107 Carbon dioxide 25 mmol/L 21-32 Serum or plasma anion gap determination (moles/volume) 11 mmol/L 5-14 Serum or plasma urea nitrogen measurement (mass/volume ) 17 mg/dL 7-18 Serum or plasma creatinine measurement (mass/volume) 0.79 mg/dL 0.60-1.30 Serum or plasma urea nitrogen/creatinine mass ratio 22 NRG Serum or plasma creatinine measurement w ith calculation of estimated glomerular filtration rate > NRG Serum or plasma glucose measurement (mass/volume) 141 mg/dL 70-105 Serum or plasma calcium measurement (mass/volume) 9.0 mg/dL 8.5-10.1 Complete blood count (CBC) with automate d white blood cell (WBC) differential - 09/25/19 06:42 Blood leukocytes automated count (number/volume) 12.9 10*3/uL 4.3-11.0 Blood erythrocytes automated count (number/volume) 3.60 10*6/uL 4.35-5.85 Venous blood hemoglobin measurement (mass/volume) 11.5 g/dL 11.5-16.0 Blood hematocrit (volume fraction) 36 % 35-52 Automated erythrocyte mean corpuscular volume 100 [foz_us] 80-99 Automated erythrocyte mean corpuscular h emoglobin (mass per erythrocyte) 32 pg 25-34 Automated erythrocyte mean corpuscular h emoglobin concentration measurement (mass/volume) 32 g/dL 32-36 Automated erythrocyte distribution width ratio 14. 4 % 10.0- 14.5 Automated blood platelet count (count/volume) 297 10*3/uL 130-400 Automated blood platelet mean volume measurement 9.9 [foz_us] 7.4-10.4 Automated blood neutrophils/100 leukocytes 88 % 42-75 Automated blood lymphocytes/100 leukocytes 8 % 12-44 Blood monocytes/100 leukocytes 3 % 0-12 Automated blood eosinophils/100 leukocytes 0 % 0-10 Automated blood basophils/100 leukocytes 0 % 0-10 Blood neutrophils automated count (number/volume) 11.4 10*3 1.8-7.8 Blood lymphocytes automated count (number/volume) 1.1 10*3 1.0-4.0 Blood monocytes automated count (number/volume) 0. 4 10*3 0.0-1.0 Automated eosinophil count 0.0 10*3/uL 0 .0-0.3 Automated blood basophil count (count/volume) 0.0 10*3/uL 0.0-0.1 Manual absolute plasma cell count - 09/03 02/18 06:42 Blood monocytes/100 leukocytes 3 % NRG Manual blood segmented neutrophils/100 leukocytes 86 % NRG Manual blood lymphocytes/100 leukocytes 11 % NRG Whole blood basic metabolic panel - 09/03 03/20 04:30 Serum or plasma sodium measurement (moles/volume) 141 mmol/L 135-145 Serum or plasma potassium measurement (moles/volume) 3.9 mmol/L 3.6-5.0 Serum or plasma chloride measurement (moles/volume) 105 mmol/L 98-107 Carbon dioxide 27 mmol/L 21-32 Serum or plasma anion gap determination (moles/volume) 9 mmol/L 5-14 Serum or plasma urea nitrogen measurement (mass/volume ) 18 mg/dL 7-18 Serum or plasma creatinine measurement (mass/volume) 0.71 mg/dL 0.60-1.30 Serum or plasma urea nitrogen/creatinine mass ratio 25 NRG Serum or plasma creatinine measurement w ith calculation of estimated glomerular filtration rate > NRG Serum or plasma glucose measurement (mass/volume) 125 mg/dL 70-105 Serum or plasma calcium measurement (mass/volume) 8.4 mg/dL 8.5-10.1 Serum or plasma lithium measurement (mol es/volume) - 09/26/19 04:30 BNP PT 132.5 pg/mL <100.0 Whole blood basic metabolic panel - 09/03 04/20 02:35 Serum or plasma sodium measurement (moles/volume) 142 mmol/L 135-145 Serum or plasma potassium measurement (moles/volume) 3.9 mmol/L 3.6-5.0 Serum or plasma chloride measurement (moles/volume) 107 mmol/L 98-107 Carbon dioxide 26 mmol/L 21-32 Serum or plasma anion gap determination (moles/volume) 9 mmol/L 5-14 Serum or plasma urea nitrogen measurement (mass/volume ) 16 mg/dL 7-18 Serum or plasma creatinine measurement (mass/volume) 0.77 mg/dL 0.60-1.30 Serum or plasma urea nitrogen/creatinine mass ratio 21 NRG Serum or plasma creatinine measurement w ith calculation of estimated glomerular filtration rate > NRG Serum or plasma glucose measurement (mass/volume) 87 mg/dL 70-105 Serum or plasma calcium measurement (mass/volume) 8.4 mg/dL 8.5-10.1 [id number] - 11/24/19 10:21 Serum or plasma urea nitrogen measurement (mass/volume ) 13 mg/dL 7-18 Serum or plasma creatinine measurement (mass/volume) 0.71 mg/dL 0.60-1.30 Serum or plasma urea nitrogen/creatinine mass ratio 18 NRG Serum or plasma creatinine measurement w ith calculation of estimated glomerular filtration rate > NRG Liver function panel (serum or plasma al k phos, alb, total and direct bili, total protein, ALT, AST) - 12/12/19 13:10 Serum or plasma total bilirubin measurement (mass/volu me) 0.5 mg/dL 0.1-1.0 Serum or plasma alkaline phosphatase edmar surement (enzymatic activity/volume) 62 U/L 40-136 Serum or plasma aspartate aminotransfera se measurement (enzymatic activity/volume) 21 U/L 5-34 Serum or plasma alanine aminotransferase measurement (enzymatic activity/volume) 14 U/L 0-55 Serum or plasma protein measurement (mass/volume) 7.3 g/dL 6.4-8.2 Serum or plasma albumin measurement (mass/volume) 4.0 g/dL 3.2-4.5 Bilirubin direct 0.2 mg/dL 0.0-0.3 Serum or plasma indirect bilirubin measurement (mass/v olume) 0.3 mg/dL NR Liver function panel (serum or plasma al k phos, alb, total and direct bili, total protein, ALT, AST) - 05/11/20 14:51 Serum or plasma total bilirubin measurement (mass/volu me) 0.5 mg/dL 0.1-1.0 Serum or plasma alkaline phosphatase edmar surement (enzymatic activity/volume) 84 U/L 40-136 Serum or plasma aspartate aminotransfera se measurement (enzymatic activity/volume) 23 U/L 5-34 Serum or plasma alanine aminotransferase measurement (enzymatic activity/volume) 12 U/L 0-55 Serum or plasma protein measurement (mass/volume) 7.5 g/dL 6.4-8.2 Serum or plasma albumin measurement (mass/volume) 3.7 g/dL 3.2-4.5 Bilirubin direct 0.2 mg/dL 0.0-0.3 Serum or plasma indirect bilirubin measurement (mass/v olume) 0.3 mg/dL NR Complete blood count (CBC) with automate d white blood cell (WBC) differential - 05/17/20 18:35 Blood leukocytes automated count (number/volume) 10.9 10*3/uL 4.3-11.0 Blood erythrocytes automated count (number/volume) 3.84 10*6/uL 4.35-5.85 Venous blood hemoglobin measurement (mass/volume) 12.2 g/dL 11.5-16.0 Blood hematocrit (volume fraction) 38 % 35-52 Automated erythrocyte mean corpuscular volume 98 [ foz_us] 80-99 Automated erythrocyte mean corpuscular h emoglobin (mass per erythrocyte) 32 pg 25-34 Automated erythrocyte mean corpuscular h emoglobin concentration measurement (mass/volume) 32 g/dL 32-36 Automated erythrocyte distribution width ratio 13. 3 % 10.0- 14.5 Automated blood platelet count (count/volume) 361 10*3/uL 130-400 Automated blood platelet mean volume measurement 9.6 [foz_us] 7.4-10.4 Automated blood neutrophils/100 leukocytes 75 % 42-75 Automated blood lymphocytes/100 leukocytes 15 % 12-44 Blood monocytes/100 leukocytes 8 % 0-12 Automated blood eosinophils/100 leukocytes 2 % 0-10 Automated blood basophils/100 leukocytes 0 % 0-10 Blood neutrophils automated count (number/volume) 8.2 10*3 1.8-7.8 Blood lymphocytes automated count (number/volume) 1.6 10*3 1.0-4.0 Blood monocytes automated count (number/volume) 0. 9 10*3 0.0-1.0 Automated eosinophil count 0.2 10*3/uL 0 .0-0.3 Automated blood basophil count (count/volume) 0.0 10*3/uL 0.0-0.1 Comprehensive metabolic panel - 05/17/20 18:35 Serum or plasma sodium measurement (moles/volume) 136 mmol/L 135-145 Serum or plasma potassium measurement (moles/volume) 3.7 mmol/L 3.6-5.0 Serum or plasma chloride measurement (moles/volume) 100 mmol/L 98-107 Carbon dioxide 25 mmol/L 21-32 Serum or plasma anion gap determination (moles/volume) 11 mmol/L 5-14 Serum or plasma urea nitrogen measurement (mass/volume ) 8 mg/dL 7-18 Serum or plasma creatinine measurement (mass/volume) 0.66 mg/dL 0.60-1.30 Serum or plasma urea nitrogen/creatinine mass ratio 12 NRG Serum or plasma creatinine measurement w ith calculation of estimated glomerular filtration rate > NRG Serum or plasma glucose measurement (mass/volume) 105 mg/dL 70-105 Serum or plasma calcium measurement (mass/volume) 9.0 mg/dL 8.5-10.1 Serum or plasma total bilirubin measurement (mass/volu me) 0.4 mg/dL 0.1-1.0 Serum or plasma alkaline phosphatase edmra surement (enzymatic activity/volume) 87 U/L 40-136 Serum or plasma aspartate aminotransfera se measurement (enzymatic activity/volume) 26 U/L 5-34 Serum or plasma alanine aminotransferase measurement (enzymatic activity/volume) 11 U/L 0-55 Serum or plasma protein measurement (mass/volume) 7.6 g/dL 6.4-8.2 Serum or plasma albumin measurement (mass/volume) 3.7 g/dL 3.2-4.5 CALCIUM CORRECTED 9.2 mg/dL 8.5-10.1 Encounters ACCT No. Visit Date/Time Discharge Status Pt. 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 [id number] 04/16/2020 12:40:00 23:59:59 CLS Outpatient JUSTO PEÑA APRN [facility] CARD DYSPNEA,HYPOXEM [place] [id number] 03/30/2020 12:26:00 23:59:59 CLS Outpatient JUSTO PEÑA APRN [facility] RT DYSPNEA,HYPOXEM IA [id number] 01/12/2020 10:45:00 00:01:00 DIS Outpatient JUSTO PEÑA APRN [facility] PULM ALLERGIC RHINIT IS,DYSPNEA [id number] 01/19/2020 13:00:00 23:59:59 CLS Preadmit JUSTO PEÑA [employer] [facility] CARD DYSPNEA [id number] 01/16/2020 12:30:00 23:59:59 CLS Preadmit JUSTO PEÑA [employer] [facility] RT DYSPNEA,ALLERGI C RHINITIS,HYPOXEMIA [id number] 12/12/2019 13:30:00 23:59:59 CLS Outpatient NAHEED CLARK [facility] RAD SHOULDER PAIN [id number] 12/12/2019 13:01:00 23:59:59 CLS Outpatient JUSTO PEÑA [employer] [facility] RAD DYSPNEA,HX OF HISTOPLASMOSIS [id number] 12/05/2019 13:15:00 13:15:00 CAN Preadmit KASSI DPM, KRYSTA Q [facility] RAD PAIN TO RIGHT MIDFOOT [id number] 11/24/2019 10:14:00 23:59:59 CLS Outpatient JUSTO PEÑA APRN [facility] RAD PNEUMONIA,HYPOX EMIA [id number] 09/22/2019 10:29:00 12:50:00 DIS Inpatient MARBIN JIMÉNEZ MD [facility] 4TH FLAKITO PNEUMONIA [id number] 09/21/2019 11:37:00 23:59:59 CLS Outpatient JUSTO PEÑA APRN [facility] RAD PNEUMONIA,HX OF HISTOPLASMOSIS,EVANS [id number] 08/31/2019 12:01:00 23:59:59 CLS Outpatient JUSTO EPÑA APRN [facility] RAD R06.00 [id number] 03/14/2019 13:31:00 23:59:59 CLS Outpatient FAUZIA ACOSTA APRN [facility] RAD LT BREAST MASS [id number] 03/01/2019 12:49:00 019 23:59:59 CLS Outpatient NAHEED CLARK [facility] RAD SCREENING [id number] 08/10/2018 11:19:00 018 13:54:00 DIS Outpatient SANDRINE KNOX MD [facility] REHAB S/P THUMB ARTHROPLASTY [id number] 07/28/2018 11:19:00 13:26:00 DIS Outpatient SANDRINE KNOX MD [facility] REHAB S/P THUMB ARTHROPLASTY [id number] 01/18/2018 12:08:00 23:59:59 CLS Outpatient JUSTO PEÑA [employer] [facility] RAD R06.00 J30.9 F1 7.201 R09.02 Z86.19 [id number] 08/02/2017 00:26:00 017 23:59:59 CLS Preadmit JUSTO PEÑA [employer] [facility] RAD HX OF HISTOPLAS MOSIS, RESPIRATORY INFECTION [id number] 05/22/2017 12:46:00 017 00:01:00 DIS Outpatient JSUTO PEÑA [employer] [facility] RAD HX OF HISTOPLAS MOSIS, RESPIRATORY INFECTION [id number] 06/29/2017 11:24:00 017 23:59:59 CLS Outpatient JUSTO PEÑA [employer] [facility] RAD DYSPNEA R06.00 [id number] 01/19/2017 13:00:00 017 23:59:59 CLS Preadmit JUSTO PEÑA [employer] [facility] PULM DYSPNEA [id number] 12/04/2016 09:00:00 017 00:01:00 DIS Outpatient JUSTO PEÑA [employer] [facility] [facility] PULM DYSPNEA [id number] 10/16/2016 13:47:00 016 23:59:59 CLS Outpatient MARIANA, JUSTO E [employer] Via [facility] RAD RESTRICTIVE JUAN RAMON G DISEASE [id number] 10/09/2016 10:54:00 23:59:59 CLS Outpatient JUSTO PEÑA APRN Via [facility] LAB DYSPNEA,RESTRIC TIVE LUNG DISEASE [id number] 09/11/2016 21:22:00 06:35:00 DIS Outpatient NAHEED CLARK Via [facility] SLEEP SNORING,HYPERTA NSION [id number] 09/04/2016 11:20:00 23:59:59 CLS Outpatient LIDIA CELESTE DO Via [facility] LAB J84.9 [id number] 08/27/2016 06:51:00 09:35:00 DIS Outpatient LIDIA CELESTE DO Via [facility] SDC DYSPNEA [id number] 08/26/2016 10:02:00 23:59:59 CLS Outpatient LIDIA CELESTE DO [facility] LAB DYSPNEA, ALLERGIC RHINI TIS [id number] 08/25/2016 06:21:00 15:14:00 DIS Outpatient LIDIA CELESTE DO Via [facility] PREOP DYSPNEA [id number] 08/20/2016 08:57:00 23:59:59 CLS Outpatient JUSTO PEÑA APRN [facility] CARD DYSPNEA, HYPOXE MAGGIE [id number] 08/14/2016 15:40:00 23:59:59 CLS Outpatient LIDIA CELESTE DO Via [facility] RAD DYSPNEA,ALLERGIC RHINIT IS [id number] 07/25/2016 15:26:00 23:59:59 CLS Outpatient NAHEED CLARK [facility] RT COUGH,DYSPNEA [id number] 05/26/2016 10:00:00 23:59:59 CLS Outpatient MARBIN JIMÉNEZ MD Via [facility] RAD SCREENING [id number] 04/23/2016 14:45:00 016 23:59:59 CLS Outpatient FAUZIA ACOSTA APRN Via [facility] RAD WRIST AND THUMB PAIN [id number] 06/19/2015 12:02:00 015 23:59:59 CLS Outpatient DUC PRESTON DO [facility] SDC SCREENING [id number] 06/14/2015 06:11:00 23:59:59 CLS Outpatient DUC PRESTON DO [facility] PREOP SCREENING [id number] 05/09/2015 09:26:00 23:59:59 CLS Outpatient TEJAS ROJAS APRN [facility] RAD SCREENING [id number] 05/02/2015 15:13:00 23:59:59 CLS Outpatient TEJAS ROJAS APRN Via [facility] CARD MEDICARE PREVENTIVE EX AM [id number] 05/17/2020 18:48:00 Document Registration [id number] 03/14/2019 13:32:00 Document Registration [id number] 04/05/2017 00:00:20 04/05/2017 23:59:5 9 CLS Outpatient
== END 2020-05-17 19:20 | disposition home or self-care (01) ==
LOC: EDUNIT# 17:53 → ER 17:55
DX: J32.1 Chronic frontal sinusitis (principal); J32.0 Chronic maxillary sinusitis; M79.7 Fibromyalgia; F32.9 Major depressive disorder, single episode, unspecified; Z88.8 Allergy status to other drugs, medicaments and biological substances; Z79.52 Long term (current) use of systemic steroids; Z79.51 Long term (current) use of inhaled steroids; Z87.891 Personal history of nicotine dependence; Z82.49 Family history of ischemic heart disease and other diseases of the circulatory system
CPT/HCPCS: 36415; 71045; 80053; 85025

== ENCOUNTER → 2020-05-21 | Outpatient (CLI) | payer MEDICARE ==
[~2020-05-21] MED LIST changes: +HOLD METFORMIN - RECEIVED CONTRAST 20 ML VIAL IV SCH; +IOHEXOL 350 MG/ML 100 ML (OMNIPAQUE 350) VIAL IV ONE; +NINT150C PO; +NS 100 ML (IVPB) BAG IV ONE
== END ==
LOC: RAD 15:46
PROVIDERS: ATTEND Nurse Practitioner Family
DX: R06.00 Dyspnea, unspecified (principal); J84.17 Other interstitial pulmonary diseases with fibrosis in diseases classified elsewhere; J98.4 Other disorders of lung; R09.02 Hypoxemia; Z86.19 Personal history of other infectious and parasitic diseases
CPT/HCPCS: 71260

== ENCOUNTER 2020-07-10 13:54 | Outpatient (RCR) | payer MEDICARE ==
[~2020-07-10 13:54] MED LIST changes: -CETI10TA21 PO; +CETI10TA49 PO; -HOLD METFORMIN - RECEIVED CONTRAST 20 ML VIAL IV SCH; -IOHEXOL 350 MG/ML 100 ML (OMNIPAQUE 350) VIAL IV ONE; -MONT10TA26 PO; +MONT10TA97 PO; -NS 100 ML (IVPB) BAG IV ONE
[2020-07-10 14:39] LABS: ALBUMIN 3.6 GM/DL (3.2-4.5); BILIRUBIN,DIRECT 0.2 MG/DL (0.0-0.3); BILIRUBIN,INDIRECT 0.2 MG/DL; BILIRUBIN,TOTAL 0.4 MG/DL (0.1-1.0); TOTAL PROTEIN 7.4 GM/DL (6.4-8.2)
== END 2020-10-08 | disposition home or self-care (01) ==
LOC: LAB 13:54
PROVIDERS: ATTEND Nurse Practitioner Family
DX: J84.112 Idiopathic pulmonary fibrosis (principal); R91.8 Other nonspecific abnormal finding of lung field
CPT/HCPCS: 36415; 80076